=== PATIENT | male | born 1940 | race Caucasian/White ===

== ENCOUNTER 2020-05-01 08:18 | Day surgery (SDC) | payer OTHER ==
[2020-04-29 11:01] LABS: Absolute Lymphocytes (CBC) 1.1 K/uL (0.7-4.9); Basophils % 0.7 % (0-1.3); Hematocrit 43.1 % (39.6-49.0); Lymphocytes % 14.1 % (15.3-44.8); MPV 8.1 fL (7.6-11.3); RBC Red Blood Cell Count 4.84 M/uL (4.33-5.43)
[2020-04-29 11:04] LABS: Protime INR 1.12
--- NOTE | 2020-04-29 11:07 | RAD REPORT ---
EXAM DESCRIPTION: RAD - Chest Pa And Lat (2 Views) - 04/29/2020 10:56 am CLINICAL HISTORY: pre op Chest pain. COMPARISON: Chest Pa And Lat (2 Views) dated 02/28/2020; Chest Single View dated 11/26/2019; Chest Pa An d Lat (2 Views) dated 11/19/2019; Chest Pa And Lat (2 Views) dated 05/01/2019 FINDINGS: Emphysematous changes are present throughout the lungs. Chronic left pleural and parenchym al opacification appears unchanged since prior study. The heart is moderately enlarged in size with c hanges of a prior CABG noted.
[2020-04-29 11:22] LABS: Potassium 4.9 mmol/L (3.5-5.1)
--- NOTE | 2020-04-30 07:17 | EKG ---
Test Date: 2020-04-29 Test Time: 10:27:52 Software Project Engineer: ANNELISE MEASUREMENT RESULTS: Intervals: Rate: 82 LA: QRSD: 90 QT: 392 QTc: 457 [place]: P: LA: QRS: 61 T: 74 INTERPRETIVE STATEMENTS: Atrial fibrillation with premature ventricular or aberrantly conducted complexes Septal infarct, age undetermined Abnormal ECG Compared to ECG 06/26/2016 17:48:54 Ventricular premature complex(es) now present Myocardial infarct finding now present ST (T wave) deviation no longer present Possible ischemia no longer present Prolonged QT interval no longer present Electronically Signed On 04-30-20 07:15:55 CDT by Gerardo Ramirez
[2020-05-01] MEDS ORDERED: NA CHLORIDE 0.9% 500 ML ONE (08:35)
--- OUTSIDE RECORDS SUMMARY | 2020-05-01 08:43 | XMS REPORT | Clinical Summary ---
:1940 Author Organization [facility] [employer] Address [address] [place] [address] Care Team Providers Name Role Phone MD Macy Primary Care Provider Allergies No Known Allergies Medications No known medications Active Problems Not on file Encounters Date Type Specialty Care Team Description 2020 Travel 04/11/2020 Travel 04/11/2020 Transcribe Orders Access Jean Delacruz Jr., MD CA D (coronary artery disease) (Primary Dx); Other persisten t atrial fibrillation after 05/01/2019 Social History Tobacco Use Types Packs/Day Years Used Date Former Smoker 1 10 Smokeless Tobacco: Never Used Comments: Qick about 45yrs ago Alcohol Use Drinks/Week oz/Week Comments Yes 2 Cans of beer 2.0 a week Sex Assigned at Date Recorded Not on file Job Start Date Occupation Industry Not on file Not on file Not on file Travel History Travel Start Travel End No recent travel history available. COVID-19 Exposure Response Date Recorded In the last month, have you been in contact with No / Unsure 2020 9:27 AM CDT someone who was confirmed or suspected to have Coronavirus / COVID-19? Last Filed Vital Signs Vital Sign Reading Time Taken Comments Blood Pressure 138/88 2020 10:47 AM CDT Pulse 74 2020 10:47 AM CDT Temperature - - Respiratory Rate 15 2020 10:47 AM CDT Oxygen Saturation - - Inhaled Oxygen Concentration - - Weight 84.8 kg (187 lb) 2020 10:16 AM CDT Height 185.4 cm (6' 1") 2020 10:16 AM CDT Body Mass Index 24.67 2020 10:16 AM CDT Plan of Treatment Health Maintenance Due Date Last Done Comments SHINGLES VACCINES (#1) 1991 65+ PNEUMOCOCCAL VACCINE (1 of 2 - PCV13) 2006 INFLUENZA VACCINE 04/26/2020 Procedures Procedure Name Priority Date/Time Associated Diagnosis Comme nts CV CTA CORONARY PRE Routine 2020 10:53 CAD (coronary art rajesh Results for this AFIB PULMONARY VEIN AM CDT disease) procedure are in MAPPING Other persistent the results atrial fibrillation section. ESTIMATED GFR Routine 2020 10:09 Results fo r this AM CDT procedure are i n the results section. POC CREATININE Routine 2020 10:09 Results f or this AM CDT procedure are i n the results section. after 05/01/2019 Results Cv cta pre afib pulmonary vein mapping (2020 10:53 AM CDT) Specimen Narrative Performed At This result has an attachment that is no t available. [facility] Nuclear Cardiology and Card iac CT [address] [place] [address] Department Number: CTA Chest Non-Coronary with Contr ast Report Pat.Name: DONELL PERSAUD Tapan Dobbs at.ID: [id number] St.Date: 2020 Refer.MD: JEAN DELACRUZ MD Exam Time: 10:30:00 AM Study Type:CTA Chest Non-Coronary W Contrast Height: 73in Weight: 191lb BSA: 2.11 m2 Age: 7 1940,80Y Sex: MALE BP: 154/90 HR: 59 bpm Nuclear Tech:Mariya Smyth, RT(R)(CT) Pat. Stat.:Outpatient Tape Vol: 25.29, CPT - 4: CTA Coronary Arteries - 30382 (Please ad d FFR Charges if Performed), CTA Chest non-coronary - 44793 Nuclear Event ID:[id number] Order ID: [id number] Reason for Study:Coronary Artery Disease, A-Fib History / Clinical:COPD, Hypertension, CABG 2016 Procedures: CT Prospective (Intervals), CT Flash Mode (Systolic Phase), CT Flash Mode with Planning Scan Race: C SUMMARY: Technique: IV contrast was administered and sequential 0.[address] cuts were obtained through the chest using the Siemens Kluster jean paul Force CT scanner. Image post-processing consisting of multiplan ar and 3D reconstructions were performed using the [id number] workstation. Interactive image viewing, volumetric dis play and analysis were also performed. 3D coronary artery calci um scoring was done in accordance with a standardized protocol. CTA RESULTS Left Main: A normal sized 7.0 mm artery which arises normally fro m the left sinus of Valsalva and divides into the left anterior descend ing and circumflex coronary arteries. No significant calcified and non-calcified atherosclerotic plaque is present. Left anterior descending (LAD): A normal sized 6.0 mm artery which wraps around the ap ex and gives off three diagonal branches. Severe calcified atherosclero tic plaque is present in the mid segment with probable severe (>70%) stenosis in the proximal and mid segments. The first diagonal is a 2.2 mm artery which has no sig nificant calcified atherosclerotic plaque present with no signi ficant stenosis. The second diagonal is a 2.2 mm bifurcating artery whi ch has moderate calcified atherosclerotic plaque present with mild (25 -49%) stenosis. The third diagonal is a 3.0 mm bifurcating artery whic h has mild calcified atherosclerotic plaque present with mild (25 -49%) stenosis. Left circumflex: A normal sized 4.8 mm non-dominant artery which arises normally from the left main and gives off at least one major obtuse marginal artery before terminating in the AV groove. Severe calcified atherosclerotic plaque is present in the proximal segment with with mi ld (25-49%) stenosis. The first obtuse marginal is a 3.8 mm bifurcating almas ry which has moderate calcified atherosclerotic plaque present with mild (25-49%) stenosis, the distal vessel is not well visualized. Right coronary artery: A normal sized 4.5 mm dominant artery which arises nor estefani from the right sinus of Valsalva and gives off several right ve ntricular branches, the posterior descending artery and the post erolateral artery. Severe calcified atherosclerotic plaque is pre sent in the proximal and mid segments with total occlusion. The posterior descending is a 3.5 mm artery which has mild calcified and non-calcified atherosclerotic plaque present but n o significant stenosis. The posterolateral is a 3.0 mm artery which has modera te calcified and non-calcified atherosclerotic plaque present but no si gnificant stenosis. Stents: None. Bypass Grafts: None. Patent left internal mammary graft to the distal left anterior descending coronary artery which has a widely patent a nastomosis and no significant stenosis beyond the graft insertion. Pulmonary Arteries: The main pulmonary artery is moderately dilated at _4. 4_cm but with no proximal thrombus identified. Left Atrial and Pulmonary Vein Dimensions: Left atrial size (A-P diameter) 6.6 cm. Left atrial volume 250 ml. Normal PV anatomy Left superior PV20.5 mm. Left inferior PV20 mm. Right superior PV22 mm. Right inferior PV21 mm. There is a left atrial appendage clip. Well positione d . No evidence of contrast in the AURELIANO during contrast and delay imagi ng . No clot over the atrial surface of the clip . Left Ventricular Valve Morphology/Function: LV septal wall thickness 15 mm. Aortic valve is tri-leaflet with mild calcification. Mitral valve is normal Thoracic Aortic Dimensions: No aortic aneurysm or dissection is seen. On distal aorta there are post surgical changes which may indicate cannulation from prior cardiac surgery however prior o ccluded saphenous vein graft cannot be excluded. Aortic root 4.3 cm. Left sinus: 4.3 cm. Right sinus: 4.0 cm. Non-coronary sinus: 4.1 cm. Sinotubular junction 3.8 cm. Mid ascending aorta 4.8 cm. Aortic arch 4.0 cm. There is normal takeoff of the g reat vessels and no significant stenosis in the proximal visualized seg ments. Aortic Isthmus 3.3 cm. Descending thoracic aorta 3.2 cm. Pericardium: No pericardial effusion or pericardial thickening. Non-Cardiac Findings: Moderate left sided pleural effusion with partially co llapsed left lung. Enlarged mediastinal lymph nodes. CONCLUSION The coronary artery calcium score indicates a severe e xtent of coronary atherosclerosis. Coronary CTA shows severe coronary atherosclerosis wit h occlusion of the RCA and additionally a severe stenosis of the dionne ve LAD. The BUSCH to LAD is patent. On distal ascending aorta there are post surgical changes which may indicate cannulation from prior card iac surgery however prior occluded saphenous vein graft cannot be excluded. Enlarged aortic root Moderate left sided pleural effusion Normal PV anatomy. There is a left atrial appendage clip. Well positioned . No evidence of contrast in the AURELIANO during contrast and delay imagi ng . No clot over the atrial surface of the clip . Please refer to the separate radiology report in Epic of non-cardiovascular findings. STUDY QUALITY The study quality is excellent. COMMENTS None. FINDINGS: Signed 04/22/2020 5:15:33 PM Dia Fuentes MD Revised Procedure Note Interface, Radiology Results In - 2019 9:08 AM CDT Nuclear Cardiology and Cardiac CT [address] [place] [address] Department Number: CTA Chest Non-Coronary wit h Contrast Report Pat.Name: DONELL PERSAUD Pat.I D: [id number] .Date: 2020 Refer .MD: JEAN DELACRUZ MD Exam Time: 10:30:00 AM Study Type:CTA Chest Non-Coronary W Cont rast Height: 73in Weigh t: 191lb BSA: 2.11 m2 Age: 7 1940,80Y Sex: MALE BP: 154/90 HR: 59 bpm Nuclear Tech:Mariya Smyth, RT(R)(CT) Pat. Stat.:Outpatient Tape Vol: 25.29, CPT - 4: CTA Coronary Arteries - 7557 4 (Please add FFR Charges if Performed), CTA Chest non-coronary - 712 75 Nuclear Event ID:[id number] Order ID: [id number] Reason for Study:Coronary Artery Disease , A-Fib History / Clinical:COPD, Hypertension, C ABG 2016 Procedures: CT Prospective (Intervals), CT Flash Mode (Systolic Phase), CT Flash Mode with Planning Scan Race: C SUMMARY: Technique: IV contrast was administered and sequential 0.[address] cuts were obtained through the chest using th e Siemens Somatom Force CT scanner. Image post-processing consistin g of multiplanar and 3D reconstructions were performed using the [employer] workstation. Interactive image viewing, volumetric display and analysis were also performed. 3D coronar y artery calcium scoring was done in accordance with a standardized p rotocol. CTA RESULTS Left Main: A normal sized 7.0 mm artery which arise s normally from the left sinus of Valsalva and divides into the left an terior descending and circumflex coronary arteries. No signifi cant calcified and non-calcified atherosclerotic plaque is present. Left anterior descending (LAD): A normal sized 6.0 mm artery which wraps around the apex and gives off three diagonal branches. Severe calcifie d atherosclerotic plaque is present in the mid segment with probable severe (>70%) stenosis in the proximal and mid segments. The first diagonal is a 2.2 mm artery wh ich has no significant calcified atherosclerotic plaque present with no significant stenosis. The second diagonal is a 2.2 mm bifurcat ing artery which has moderate calcified atherosclerotic plaque present with mild (25-49%) stenosis. The third diagonal is a 3.0 mm bifurcati ng artery which has mild calcified atherosclerotic plaque present with mild (25-49%) stenosis. Left circumflex: A normal sized 4.8 mm non-dominant arter y which arises normally from the left main and gives off at least one major obtuse marginal artery before terminating in the AV groove. Sev ere calcified atherosclerotic plaque is present in the proximal segmen t with with mild (25-49%) stenosis. The first obtuse marginal is a 3.8 mm bi furcating artery which has moderate calcified atherosclerotic plaqu e present with mild (25-49%) stenosis, the distal vessel is not well visualized. Right coronary artery: A normal sized 4.5 mm dominant artery wh ich arises normally from the right sinus of Valsalva and gives off se veral right ventricular branches, the posterior descending arter y and the posterolateral artery. Severe calcified atherosclerotic plaque is present in the proximal and mid segments with total occ lusion. The posterior descending is a 3.5 mm art rajesh which has mild calcified and non-calcified atherosclerotic plaque present but no significant stenosis. The posterolateral is a 3.0 mm artery wh ich has moderate calcified and non-calcified atherosclerotic plaque pre sent but no significant stenosis. Stents: None. Bypass Grafts: None. Patent left internal mammary graft to th e distal left anterior descending coronary artery which has a w idely patent anastomosis and no significant stenosis beyond the graft insertion. Pulmonary Arteries: The main pulmonary artery is moderately dilated at _4.4_cm but with no proximal thrombus identified. Left Atrial and Pulmonary Vein Dimension s: Left atrial size (A-P diameter) 6.6 cm. Left atrial volume 250 ml. Normal PV anatomy Left superior PV20.5 mm. Left inferior PV20 mm. Right superior PV22 mm. Right inferior PV21 mm. There is a left atrial appendage clip. Well positioned . No evidence of contrast in the AURELIANO during contrast a nd delay imaging . No clot over the atrial surface of the clip . Left Ventricular Valve Morphology/Functi on: LV septal wall thickness 15 mm. Aortic valve is tri-leaflet with mild ca lcification. Mitral valve is normal Thoracic Aortic Dimensions: No aortic aneurysm or dissection is seen . On distal aorta there are post surgical changes which may indicate cannulation from prior cardiac surgery h owever prior occluded saphenous vein graft cannot be excluded. Aortic root 4.3 cm. Left sinus: 4.3 cm. Right sinus: 4.0 cm. Non-coronary sinus: 4.1 cm. Sinotubular junction 3.8 cm. Mid ascending aorta 4.8 cm. Aortic arch 4.0 cm. There is normal tha eoff of the great vessels and no significant stenosis in the proximal visualized segments. Aortic Isthmus 3.3 cm. Descending thoracic aorta 3.2 cm. Pericardium: No pericardial effusion or pericardial t hickening. Non-Cardiac Findings: Moderate left sided pleural effusion wit h partially collapsed left lung. Enlarged mediastinal lymph nodes. CONCLUSION The coronary artery calcium score indica starr a severe extent of coronary atherosclerosis. Coronary CTA shows severe coronary ather osclerosis with occlusion of the RCA and additionally a severe stenos is of the [place] LAD. The BUSCH to LAD is patent. On distal ascending aorta there are post surgical changes which may indicate cannulation f rom prior cardiac surgery however prior occluded saphenous vein gr aft cannot be excluded. Enlarged aortic root Moderate left sided pleural effusion Normal PV anatomy. There is a left atrial appendage clip. W ell positioned . No evidence of contrast in the AURELIANO during contrast a nd delay imaging . No clot over the atrial surface of the clip . Please refer to the separate radiology r eport in Epic of non-cardiovascular findings. STUDY QUALITY The study quality is excellent. COMMENTS None. FINDINGS: Signed 04/22/2020 5:15:33 PM Dia Fuentes MD Revised Performing Organization Address City/[facility]/Zipcode Phone Number [facility] [address] [place] [address] Estimated GFR (2020 10:09 AM CDT) Pathologist [facility] Estimated GFR 71 mL/min/1.73 [facility] Comment: m2 HOSPITAL Catergory Units Interpretation G1 >=90 Normal or high G2 60-89 Mildly decreased G3a 45-59 Mildly to moderately decreas ed G3b 30-44 Moderately to severely decre ased G4 15-29 Severely decreased G5 <15 Kidney failure The eGFR was calculated using the Chronic Kidney Disea se Epidemiology Collaboration (CKD-EPI) equation. Interpretation is based on recommendations of the National Kidney Foundation-Kidney Disease Outcomes Emre lity Initiative (NKF-KDOQI) published in 2014. Specimen Blood Performing Organization Address [facility] Phone Number [facility] DEPARTMENT OF PATHOLOGY AND [address] [place] [phone] [address] POC creatinine (2020 10:09 AM CDT) [facility] POC creatinine 1.0 0.7 - 1.2 YOANA SANCHEZ Comment: mg/dl HOSPITAL Sweep Press Operator Name: Shazia Haley Device ID: [id number] Specimen Blood Performing Organization Address [facility]/Zipcode Phone Number [facility] DEPARTMENT OF PATHOLOGY AND [address] [place] [address] [phone] [address] after 05/01/2019 Insurance Payer Benefit Plan / Subscriber ID Effective Dates Phone Addre ss Type Group HUMANA MEDICARE HUMANA MEDICARE xxxxxxxxx 2018-Present PPO PPO/PFFS/[facility] Advance Directives For more information, please contact: [phone] Type Date Recorded Patient Insulator Tester Explanati on Advance Directives, Living Will and Medical Power of Clinical Application Manager
--- OUTSIDE RECORDS SUMMARY | 2020-05-01 08:49 | XMS REPORT | Continuity of Care Document ---
:1940 Author Organization [facility] [employer] Care Team Providers Name Role Phone [facility] [place] Information [employer] Unavailable Un available Problems Problem Status Onset Classification Date Comments Sourc e Date Reported FOLLOW UP Active 11/26/[address] AFIB Active 12/29/[address] CCL/*MAC Active 12/29/19 [facility] ANESTHESIA*/CARDIO 16 [facility] VERSION/DX: A Center LSA Active 10/23/[address] HOSPITAL FOLLOW UP Active 10/22/[address] A FIB Active 09/29/[address] INTITAL CONSULT Active 09/22/[address] POST TPA Active 09/19/[address] CVA Active 09/19/[address] ELLE BILLING Active 09/19/20 [facility] LFLT #[id number] [place] [address] Atrial Resolved Problem 02/21/2017 [facility] fibrillation Medical (disorder) [place] 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[facility] failure (disorder) [facility], [facility] 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[facility] obstructive lung Med ical disease (disorder) C enter, [facility] Diabetes mellitus Resolved Problem 02/21/2017 [facility] (disorder) [facility], [facility] Hypertensive Resolved Problem 02/21/2017 [place] [facility] disorder, systemic [facility] arterial [place], (disorder) [facility] Cerebrovascular Resolved Problem 02/21/2017 [facility] accident Medical (disorder) [place], [facility] S/P ADMN TPA IN Active [facility] ex DIFF FAC W/N LAST Me dical 24 HR Center MEDICAL SERVICES Active [facility] NOT AVAILABLE IN Med ical HOME Center UNSPECIFIED ATRIAL Active [facility] ENCNTR FOR GENERAL Active [facility] [place] ADULT MEDICAL EXAM M edical W/ Center Medications Medication Details Route Status Patient Ordering Order Source Instructions Provider Date bumetanide 1 mg 1 mg = 1 tab, Active [place] oral tablet PO, BID, # 180 2017 Medic al tab, 3 Center Refill(s), Pharmacy: [facility]/pharmacy #[id number] nebivolol 10 MG 10 mg = 1 tab, Active 02/18/ M [facility] [place] Oral Tablet PO, Daily 2016 Medical [Bystolic] Center Microencapsulated 20 mEq = 1 tab, Active Potassium Chloride PO, BID, # 180 2017 Center 20 MEQ Extended tab, 3 for Adv Release Oral Tablet Refill(s), [facility] [[facility] Pharmacy: Failure [facility]/pharmacy #[id number] nebivolol 5 MG Oral 5 mg = 1 tab, Active Tablet [Bystolic] PO, Daily, # 90 2017 Center tab, 3 for Adv Refill(s), Heart Pharmacy: Failure [facility][id number] atorvastatin 40 mg 40 mg = 1 tab, Active oral tablet PO, Bedtime, # 2017 Cente r 90 tab, 3 for Adv Refill(s), Heart Pharmacy: Failure [facility]acy [facility][id number] 24 HR Nifedipine 60 60 mg = 1 tab, Active 10/22 MG Extended Release PO, Daily, # 90 2017 Center Tablet tab, 3 for Adv Refill(s), Heart Pharmacy: Failure [id number] bumetanide 0.5 mg 2 mg = 4 tab, Active oral tablet PO, BID, # 240 2016 Cente r tab, 6 for Adv Refill(s), Heart Pharmacy: Failure [facility]acy [id number], Patient is due for follow up appointment Potassium Chloride 20 mEq = 1 tab, Active 04/14 MH 20 MEQ Extended PO, BID, # 180 2016 C enter Release Tablet tab, 3 for Adv [Klor-Con] Refill(s), Heart Pharmacy: Failure [id number] bumetanide 0.5 mg 2 mg = 4 tab, Active oral tablet PO, BID, 2016 Center patient is due for Adv for follow up Heart appointment, # Failure 240 tab, 6 Refill(s), Pharmacy: [id number], Patient is due for follow up appointment bumetanide 0.5 mg 2 mg = 4 tab, Active oral tablet PO, BID, 2016 Center patient is due for Adv for follow up Heart appointment, # Failure 240 tab, 0 Refill(s), Pharmacy: [facility]/pharmacy #[id number], Patient is due for follow up appointment sucralfate 1 g oral 1 gm = 1 tab, Active [facility] tablet PO, QID-Before 2016 Medical Meals, 0 Center Refill(s) AMIODarone 200 mg 200 mg = 1 tab, Active [place] oral tablet PO, Daily, 0 2015 Medical Refill(s) Center nebivolol 5 MG Oral 5 mg = 1 tab, Active [facility] Tablet [Bystolic] PO, Daily, 0 2015 edical Refill(s) [place] Sucralfate 100 1 gm = 10 mL, Active [place] MG/ML Oral PO, QID-Before 2015 Medica l Suspension Meals, 0 [place] [Carafate] Refill(s) bumetanide 0.5 mg 1 mg = 2 tab, Active [facility] oral tablet PO, BID, 0 2015 Medical Refill(s) [place] bumetanide 0.5 mg 1 mg = 2 tab, Active [place] oral tablet PO, BID [facility] Potassium Chloride 20 mEq = 1 tab, Active 10/29 [place] 20 MEQ Extended PO, BID 2016 Medical Release Tablet [place] [Klor-Con] Metolazone 2.5 MG 2.5 mg = 1 tab, Active [facility] Oral Tablet PO, Q-Tu and 2016 Medical Th, # 30 tab, 1 Center Refill(s) polyethylene glycol 17 gm, PO, Active 10/20/ M [facility] [place] 3350 oral powder Daily, # 527 2016 Me dical for reconstitution gm, 3 Refill(s) [place] senna 8.6 mg oral 8.6 mg = 1 tab, Active [place] tablet PO, Q12H, PRN 2016 Medical Constipation, # Center 30 tab, 3 Refill(s) 24 HR Nifedipine 60 60 mg = 1 tab, Active 10/20 [place] MG Extended Release PO, Daily, # 90 2016 Medical Tablet tab, 3 Center Refill(s) nebivolol 5 mg oral 5 mg = 1 tab, Active [place] tablet PO, Daily, # 90 2016 Medical tab, 3 Center Refill(s) Metolazone 2.5 MG 2.5 mg = 1 tab, Inactive 10/20 [place] Oral Tablet PO, Q--F, # 2016 Medic al 90 tab, 3 Center Refill(s) bumetanide 0.5 mg 2 mg = 4 tab, Active [place] oral tablet PO, BID, # 180 2016 Medic al tab, 1 Center Refill(s) atorvastatin 40 mg 40 mg = 1 tab, Active [place] oral tablet PO, Bedtime, # 2016 Medic al 90 tab, 3 Center Refill(s) Aspirin Low Dose 81 = 1 tab, PO, Active [facility] mg oral tablet Daily, # 90 2016 Medic al tab, 3 Center Refill(s) AMIODarone 200 mg 200 mg = 1 tab, Active [facility] oral tablet PO, BID, # 90 2016 Medica l tab, 3 Center Refill(s) bumetanide 0.5 mg 2 mg = 4 tab, Inactive [place] oral tablet PO, BID, 0 2016 Medical Refill(s) Center AMIODarone 200 mg 200 mg = 1 tab, Inactive 10/20 [facility] oral tablet PO, BID, 0 2016 Medical Refill(s) Center potassium chloride 10 mEq = 50 mL, Inactive 09/27 [facility] IVPB, PRN, PRN 2016 Medical Abnormal Lab Center Result, 0 Refill(s) nebivolol 5 mg oral 5 mg = 1 tab, Inactive 10/20 [place] tablet PO, Daily, 0 2016 Medical Refill(s) Center 24 HR Nifedipine 60 60 mg = 1 tab, Inactive 09/27 [place] MG Extended Release PO, Daily, 0 2016 Medical Tablet Refill(s) Center Metolazone 2.5 MG 2.5 mg = 1 tab, Inactive 10/20 [place] Oral Tablet PO, Q---F, 0 2016 Medic al Refill(s) Center Metolazone 2.5 MG Notes: (Same Inactive [facility] Oral Tablet as: Zaroxolyn) 2016 Medic al Center Bumex Notes: (Same Inactive [facility] As: Bumex) 2016 Medical Center Diuril Notes: (Same Inactive [facility] As: Diuril 2016 Medical Sodium) Center Diuril 250 mg, Route: Inactive [facility] PO, ONCE, 2016 Medical Dosing Weight Center 101.007, kg, Start date: 10/18/15 18:30:00, Stop date: 10/18/15 18:30:00 Diuril Sodium + Notes: (Same Inactive [facility] Sodium Chloride As: Diuril 2016 Medic al 0.9% IV 50 mL Sodium) [place] Potassium Chloride Notes: (Same No Longer [facility] 20 MEQ Extended as: K-Dur 20) Active 2015 Me dical Release Tablet "Do Not Crush" Ce nter With food and full glass of water Diuril Notes: (Same Inactive [facility] As: Diuril 2016 Medical Sodium) [place] bumetanide 10 mg Notes: (Same No Longer [facility] as: Bumex) Active [facility] Venofer Notes: Each 5ml No Longer [place] as contains 100mg Active 2015 Medical elemental iron. Center Mix with NS (Same as:Venofer) Administer IV only. MEDICATION WASTE Product Size: 100 mg Product Wasted: ___ mg Aspirin Notes: Do not No Longer [facility] crush or chew. Active 2015 Medical (Same As: [place] Ecotrin) heparin Notes: [facility] potassium phosphate Notes: (Same No Longer 10/13 [facility] + Sodium Chloride as: K Active 2016 Medica l 0.9% IV 250 mL Phosphate.) 1 Ce nter mMol phoshate has 1.47 mEq potassium Infuse over 4 hours potassium Notes: (Same [place] Long[place] phosphate-sodium as: Active 2016 Medical phosphate 250 Neutra-Phos) Cente r mg-278 mg-164 mg Each 1.25 gm oral powder pkt has 250mg phosphorous. Mix w/2.5oz water and stir. potassium chloride Notes: (Same No Longer [facility] as: KCL) Active 2015 Medical Infuse over 2 Center hours. Magnesium Sulfate 2 gm, 50 mL, No Longer [place] Route: IVPB, Active 2015 Medical Drug form: INJ, Center PRN, Dosing Weight 101.007, kg, PRN Abnormal Lab Result, For NON-ICU Patients Only., Start date: 10/13/15 11:41:00, Duration: 30 day, Stop date: 11/12/15 11:40:00 sodium phosphate + 30 mmol, 10 mL, No Longer [place] Sodium Chloride Route: IVPB, Active 2015 Med ical 0.9% IV 250 mL PRN, Dosing Cente r Weight 101.007, kg, PRN Abnormal Lab Result, For NON-ICU Patients Only., Start date: 10/13/15 11:41:00, Duration: 30 day, Stop date: 11/12/15 11:40:00 Calcium Gluconate 2 gm, 20 mL, No Longer [place] Route: IVPB, Active 2015 Medical PRN, Dosing Center Weight 101.007, kg, PRN Abnormal Lab Result, For NON-ICU Patients Only., Start date: 10/13/15 11:41:00, Duration: 30 day, Stop date: 11/12/15 11:40:00 Magnesium Oxide Notes: (Same No Longer H [place] as: Mag-Ox 400) Active 2015 [facility] Magnesium oxide [place] [id number] elemental magnesium Dose=____mg magnesium oxide (___mg elemental magnesium) bumetanide 10 mg Notes: (Same No Longer [place] as: Bumex) Active 2015 Medical [place] Trazodone Notes: (Same [place] Longer [place] As: Desyrel) Active 2016 Medical [place] Melatonin 3 MG Notes: (Same No Longer [place] Extended Release as: Melatonin) Active [facility] Tablet Center Lasix Notes: (Same No Longer [place] as: Lasix) Active 2015 Medical MEDICATION Center WASTE Product Size: 40 mg Product Wasted: ___ mg Maalox Advanced Notes: No Longer [place] as Regular Strength (aluminum Active 2015 Medic al SUSP hydroxide-magne Center sium hyd-simethicone [id number]/5m l 30 ml ud ALEISHA) Fentanyl Notes: (Same No Longer [place] as: Sublimaze) Active 2016 Medical Preservative Center free. Lasix Notes: (Same No Longer [facility] as: Lasix) Active 2016 Medical MEDICATION Center WASTE Product Size: 40 mg Product Wasted: ___ mg Lasix Notes: (Same No Longer [facility] as: Lasix) Active 2016 Medical MEDICATION Center WASTE Product Size: 40 mg Product Wasted: _0__ mg Miralax Notes: Dissolve No Longer [place] as in 8 oz of Active 2016 Medical water or juice. Center (Same as: Miralax) Bystolic Notes: (same No Longer [facility] as: Bystolic) Active 2016 Medical Center Potassium Chloride Notes: (Same No Longer [facility] 20 MEQ Extended as: K-Dur 20) Active 2015 Me dical Release Tablet "Do Not Crush" Ce nter With food and full glass of water 24 HR Nifedipine 60 Notes: (Same No Longer 10/08 [facility] MG Extended Release as: Adalat CC, Active 2015 Medical Tablet Procardia XL) Center Give on empty stomach. Take 1 hour before or 2 hours after meal; "Avoid grapefruit and grapefruit juice". Do not crush molasses Notes: (Same Inactive [facility] as:Molasses) 2016 Medical Center Simethicone Notes: (Same No Longer [place] as: Mylicon) Active 2016 Medical Center Dulcolax Laxative Notes: (Same No Longer [facility] As: Dulcolax, Active 2016 [facility] Bisco-Lax) Center Bystolic Notes: (same Inactive [facility] as: Bystolic) 2016 Medical Center Magnesium Oxide Notes: (Same Inactive [facility] as: Mag-Ox 400) 2016 Medical Magnesium oxide Center [id number] elemental magnesium Dose=____mg magnesium oxide (___mg elemental magnesium) potassium chloride Notes: (Same Inactive [facility] as: K-Dur 20) 2016 Medical "Do Not Crush" Center With food and full glass of water Calcium Carbonate Notes: (Same Inactive [facility] As: Tums) 2016 Medical Calcium Center Carbonate 500 mg = 200 mg elemental calcium Dose = mg calcium carbonate ( mg elemental calcium) Lasix Notes: (Same No Longer [place] as: Lasix) January Active 2016 Medical cause GI upset. Center Give with food or milk. Hydralazine Notes: (Same [place] Longer [place] as: Apresoline) Active 2016 Medical Push over 5 Center minutes Dulcolax Laxative Notes: (Same Inactive [place] As: Dulcolax, 2016 Medical Bisco-Lax) Center potassium chloride Notes: (Same Inactive [place] as: K-Dur 20) 2016 Medical "Do Not Crush" Center With food and full glass of water Simethicone Notes: (Same No Longer [place] as: Mylicon) Active 2016 Medical Center Amiodarone Notes: (Same No Longer [place] as as: Cordarone) Active 2016 Medical Center carvedilol Notes: Give Inactive [facility] with food. 2016 Medical (Same As: Center Coreg) Acetaminophen 325 Notes: Do not No Longer [facility] MG / Hydrocodone exceed 4gm/day Active 2016 Medical Bitartrate 10 MG of Center Oral Tablet [[place] acetaminophen. 10/325] (Same as: [place] 325/10) senna 8.6 mg oral Notes: (Same No Longer [facility] tablet as: Senokot) Active 2016 Medical Center sodium bicarbonate 50 ml, Route: Inactive [place] 8.4% IVP, Dosing 2016 Medical Weight 97.273, Center kg, ONCE, Start date: 10/01/15 18:27:00, Stop date: 10/01/15 18:27:00 Dopamine Notes: (Same No Longer [place] as: Intropin) Active 2016 Medical Administer by Center either central venous catheter or peripherally-in serted central catheter (PICC) line. Final conc = 3.2 mg/ml. Premix solution. Sodium Chloride 500 mL, 1000 Inactive [place] 0.154 MEQ/ML ml/hr, Infuse 2016 Medic al Injectable Solution Over: 0.5 hr, Center Route: IV, 500, Drug form: INJ, ONCE, Priority: STAT, Dosing Weight 97.273 kg, Start date: 10/01/15 13:41:00, Duration: 1 doses or times, Stop date: 10/01/15 13:41:00 Dobutamine Notes: (Same No Longer [place] as as: Dobutrex) Active [facility] Final conc = 4 Center mg/ml. Premix solution. Protect from light. pantoprazole Notes: For IV No Longer [facility] push Active 2015 [facility] reconstitute [place] with 10 ml 0.9% sodium chloride and push over 2 minutes. (Same as: Protonix) Docusate Sodium 100 Notes: (Same No Longer 10/01 [facility] MG Oral Capsule as: Colace) (Do Active [facility] [Colace] Not Crush) [place] Aspirin 325 MG Notes: Take No Longer [place] Enteric Coated with food. Active 2015 Medica l Tablet [place] Aspirin 300 MG Notes: Inactive [facility] Rectal Suppository Refrigerate. 2016 [facility] Dopamine Notes: (Same Inactive [facility] as: Intropin) 2016 Medical Administer by Center either central venous catheter or peripherally-in serted central catheter (PICC) line. Final conc = 3.2 mg/ml. Premix solution. sodium bicarbonate Notes: (sodium Inactive 10/01 [place] 8.4% bicarb 8.4% (1 2015 Medical mEq/ml) 50 ml [facility]) Sodium Chloride 1,000 mL, 1,000 Inactive [facility] 0.154 MEQ/ML ml/hr, Infuse 2016 Medic al Injectable Solution Over: 1 hr, [place] Route: IV, 1,000, Drug form: INJ, ONCE, Priority: STAT, Dosing Weight 97.273 kg, Start date: 10/01/15 1:52:00, Duration: 1 doses or times, Stop date: 10/01/15 1:52:00 sodium bicarbonate Notes: (sodium Inactive 10/01 [facility] 8.4% bicarb 8.4% (1 2015 Medical mEq/ml) 50 ml [facility]) Dexmedetomidine Notes: (Same No Longer [facility] as: Precedex) Active 2015 [facility] calcium gluconate + 3,000 mg, 30 Inactive [facility] Sodium Chloride mL, Route: 2015 Medic al 0.9% IV 100 mL IVPB, ONCE, Cente r Start date: 09/30/15 22:41:00, Stop date: 09/30/15 22:41:00 ceFAZolin (SCIP) Notes: Same as: No Longer 10/01 [place] Ancef Active 2015 [facility] sodium bicarbonate Notes: (sodium Inactive 10/01 [place] 8.4% bicarb 8.4% (1 2015 Medical mEq/ml) 50 ml Center VL) atorvastatin Notes: (Same No Longer [place] as: Lipitor) Active [facility] Vancomycin 6.67 2001 mg: No Longer [place] MG/ML Injectable infuse over 2.5 Active 2015 Medical Solution hours Center MEDICATION WASTE Product Size: 1000 mg Product Wasted: ___ mg Sodium Chloride 1,000 mL, 1,000 Inactive [place] 0.154 MEQ/ML ml/hr, Infuse 2015 Medic al Injectable Solution Over: 1 hr, Center Route: IV, 1,000, Drug form: INJ, ONCE, Priority: STAT, Dosing Weight 97.273 kg, Start date: 09/30/15 19:47:00, Duration: 1 doses or times, Stop date: 09/30/15 19:47:00 Neutra-Phos Notes: (Same [place] Longer [place] as: Active 2015 Medical Neutra-Phos) Center Each 1.25 gm pkt has 250mg phosphorous. Mix w/2.5oz water and stir. Magnesium Sulfate 2 gm, 50 mL, No Longer [place] Route: IVPB, 2015 Medical Drug form: INJ, Center PRN, Dosing Weight 97.273, kg, PRN Abnormal Lab Result, Start date: 09/30/15 19:44:00, Duration: 30 day, Stop date: 10/30/15 19:43:00, FOR ICU USE ONLY sodium phosphate + 15 mmol, 5 mL, No Longer [place] Sodium Chloride Route: IVPB, Active 2015 Med ical 0.9% IV 250 mL PRN, Dosing Cente r Weight 97.273, kg, PRN Abnormal Lab Result, Start date: 09/30/15 19:44:00, Duration: 30 day, Stop date: 10/30/15 19:43:00, FOR ICU USE ONLY potassium chloride Notes: (Same No Longer [place] as: Potassium Active 2015 Medical Chloride) Center Calcium Gluconate 1 gm, 10 mL, No Longer [place] Route: IVPB, Active 2015 Medical PRN, Dosing Center Weight 97.273, kg, PRN Abnormal Lab Result, Start date: 09/30/15 19:44:00, Duration: 30 day, Stop date: 10/30/15 19:43:00, FOR ICU USE ONLY Magnesium Oxide Notes: (Same No Longer [place] as: Mag-Ox 400) Active 2015 Medical Magnesium oxide Center [id number] elemental magnesium Dose=____mg magnesium oxide (___mg elemental magnesium) Calcium Carbonate Notes: (Same No Longer [place] 500 MG Chewable As: Tums) Active 2015 Medica l Tablet Calcium Center Carbonate 500 mg = 200 mg elemental calcium Dose = mg calcium carbonate ( mg elemental calcium) potassium phosphate Notes: (Same No Longer 10/01 [place] + Sodium Chloride as: K Active 2015 Medica l 0.9% IV 250 mL Phosphate.) 1 Ce nter mMol phoshate has 1.47 mEq potassium Infuse over 4 hours Glucagon 1 mg, Route: No Longer [place] IM, Drug form: Active 2015 Medical PDR/INJ, PRN, Center Dosing Weight 97.273, kg, PRN Blood Glucose Results, Start date: 09/30/15 19:43:00, Duration: 30 day, Stop date: 10/30/15 19:42:00 Insulin regular 60 units) No Longer [place] Stable for 28 2015 Medical days at room Center temperature Expires in days from D ate Dextrose 50% 12.5 gm, 25 mL, No Longer [facility] Syringe Route: IVP, Active 2015 Medical Drug Form: INJ, Center Dosing Weight 97.273, kg, PRN, PRN Blood Glucose Results, Start date: 09/30/15 19:43:00, Duration: 30 day, Stop date: 10/30/15 19:42:00 Isolyte S PH 7.4 Notes: (Same No Longer [place] 1,000 mL as: Isolyte S Active 2015 Medical PH 7.4) Center Fentanyl 1,000 No Longer [place] microgram, 20 Active 2015 Medical mL, Rate: Center Titrate, Start Dose: 50 microgram/hr, Titration: 25 microgram/hour every 15 minutes, Goal(s): RASS (0) to (-2), Max Dose: 300 microgram/hr, Route: IV, Dosing Weight 97.273 kg, Total Volume: 20, Start date: 09/30/15 18:34:... Fentanyl Notes: No Longer [place] Concentration Active 2016 Medical is 20 Center micrograms/ml Naloxone Notes: Same as No Longer [place] as Narcan Active 2015 [facility] Ondansetron 0.8 Notes: (Same No Longer [facility] MG/ML Oral Solution as: Zofran) Active 2015 [facility] [Zofran] Center Acetaminophen 325 Notes: Do not No Longer [place] MG / Hydrocodone exceed 4gm/day Active 2015 [facility] Bitartrate 10 MG of Center Oral Tablet acetaminophen. (Same as: [place] 325/10) Fentanyl Notes: (Same No Longer [place] as: Sublimaze) Active 2015 [facility] Preservative Center free. Acetaminophen Notes: Do not No Longer [place] exceed 4 Active 2015 Medical gm/day. (Same Center as: Tylenol) protamine (ANES) Route: IV, Drug Inactive [place] form: INJ, 2015 Medical ONCE, Stop Center date: 09/30/15 16:31:00 DOPamine (ANES) Route: IV, Drug Inactive [place] (ANES) form: INJ, 2015 Medical Start date: [place] 09/30/15 16:10:00, Stop date: 09/30/15 17:10:00 acetaminophen Route: IV, Drug Inactive [place] (ANES) (ANES) form: INJ, 2015 Medical Start date: [place] 09/30/15 15:40:00, Stop date: 09/30/15 16:40:00 Ancef 1 gm, Route: Inactive [place] IVPB, ONCE, 2016 Medical Dosing Weight Center 97.273, kg, Start date: 09/30/15 13:24:00, Duration: 1 doses or times, Stop date: 09/30/15 13:24:00, Surgical Prophylaxis Only; For patients < 120 kg midazolam (ANES) Route: IV, Drug Inactive 09/30/ [place] form: SOLN, 2015 Medical ONCE, Stop Center date: 09/30/15 12:10:00 heparin (ANES) Route: IV, Drug Inactive [place] form: INJ, 2015 Medical ONCE, Stop Center date: 09/30/15 12:00:00 niCARdipine (ANES) Route: IV, Drug Inactive [place] + sodium chloride form: INJ, 2015 Med ical (ANES) (ANES) ONCE, Stop Center date: 09/30/15 12:00:00 tranexamic acid Route: IV, Drug Inactive [place] (ANES) form: INJ, 2015 Medical ONCE, Stop Center date: 09/30/15 11:25:00 ceFAZolin (ANES) Route: IV, Drug Inactive [place] form: INJ, 2015 Medical ONCE, Stop Center date: 09/30/15 11:25:00 lidocaine (ANES) Route: IV, Drug Inactive [place] form: INJ, 2015 Medical ONCE, Stop Center date: 09/30/15 11:05:00 propofol (ANES) Route: IV, Drug Inactive [place] form: INJ, 2015 Medical ONCE, Stop Center date: 09/30/15 10:55:00 rocuronium (ANES) Route: IV, Drug Inactive 09/30 [place] form: INJ, 2015 Medical ONCE, Stop Center date: 09/30/15 10:10:00 fentaNYL (ANES) Route: IV, Drug Inactive [place] form: INJ, 2015 Medical ONCE, Stop Center date: 09/30/15 10:05:00 cefepime (ANES) Route: IV, Drug Inactive [place] form: INJ, 2015 Medical ONCE, Stop Center date: 09/30/15 10:00:00 dexmedetomidine Route: IV, Drug Inactive [place] (ANES) (ANES) form: INJ, 2015 Medical Start date: Center 09/30/15 9:48:00, Stop date: 09/30/15 10:48:00 ropivacaine 400 mL Notes: Final No Longer [place] concentration: Active 2015 Medical Ropivacaine Center 0.2% 400 ml ropivacaine 400 mL Notes: Final No Longer [place] concentration: Active 2015 [facility] Ropivacaine Center 0.2% 400 ml Ancef 2 gm, Route: Inactive [place] IVPB, ONCE, 2016 Medical Dosing Weight Center 97.273, kg, Start date: 09/30/15 9:26:00, Duration: 1 doses or times, Stop date: 09/30/15 9:26:00, Surgical Prophylaxis Only; For patients < 120 kg pantoprazole Notes: Tablet Inactive [place] should not be 2016 Medical chewed or Center crushed. (Same as: Protonix) 24 HR Nifedipine 90 Notes: (Same No Longer 09/30 [place] MG Extended Release as:Adalat CC, Active 2015 Medical Tablet Procardia XL) Center Give on empty stomach. Take 1 hour before or 2 hours after meal; "Avoid grapefruit and grapefruit juice". Do not crush Losartan Notes: (Same No Longer [place] as: Cozaar) Active 2015 [facility] Aspirin Notes: Take Inactive Veronica with food. 2016 [facility] PlasmaLyte A PH-7.4 Route: IV, Inactive [place]onica (ANES) (ANES) Total Volume: 2016 Medi prabhjot 1,000, Start Center date: 09/30/15 8:20:00, Stop date: 09/30/15 9:20:00 Clonidine Notes: (Same No Longer [place] Hydrochloride 0.1 As: Catapres) Active 2015 Medical MG Oral Tablet Center atorvastatin Notes: (Same No Longer [place] As: Lipitor) Active 2015 [facility] Magnesium Sulfate 2 gm, 50 mL, No Longer [place] Route: IVPB, Active 2015 Medical Drug form: INJ, Center PRN, Dosing Weight 97.273, kg, PRN Abnormal Lab Result, For NON-ICU Patients Only., Start date: 09/29/15 19:19:00, Duration: 30 day, Stop date: 10/29/15 19:18:00 Calcium Gluconate 3 gm, 30 mL, No Longer [place] Route: IVPB, Active 2015 Medical Drug form: INJ, Center PRN, Dosing Weight 97.273, kg, PRN Abnormal Lab Result, For NON-ICU Patients Only., Start date: 09/29/15 19:19:00, Duration: 30 day, Stop date: 10/29/15 19:18:00 Magnesium Oxide Notes: (Same No Longer [facility] as: Mag-Ox 400) Active 2015 [facility] Magnesium oxide Center [id number] elemental magnesium Dose=____mg magnesium oxide (___mg elemental magnesium) potassium phosphate Notes: (Same No Longer 09/30 [facility] + Sodium Chloride as: K Active 2015 Medica l 0.9% IV 250 mL Phosphate.) 1 Ce nter mMol phoshate has 1.47 mEq potassium Infuse over 4 hours sodium phosphate + 15 mmol, 5 mL, No Longer [facility] Sodium Chloride Route: IVPB, Active 2015 Med ical 0.9% IV 250 mL PRN, Dosing Cente r Weight 97.273, kg, PRN Abnormal Lab Result, For NON-ICU Patients Only., Start date: 09/29/15 19:19:00, Duration: 30 day, Stop date: 10/29/15 19:18:00 potassium chloride Notes: (Same No Longer [facility] as: KCL) Active 2015 Medical Infuse over 2 Center hours. potassium Notes: (Same [place] phosphate-sodium as: Active 2015 Medical phosphate 250 Neutra-Phos) Cente r mg-278 mg-164 mg Each 1.25 gm oral powder pkt has 250mg phosphorous. Mix w/2.5oz water and stir. Insulin regular 60 units) No Longer [facility] Stable for 28 Active 2015 Medical days at room Center temperature Expires in days from D ate Acetaminophen 325 Notes: (Same No Longer [facility] MG / Hydrocodone as: [place] Active 2015 Medic al Bitartrate 5 MG 325/5) Do not C enter Oral Tablet exceed 4gm/day of acetaminophen. 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 Active 2015 [facility] mL with blood Center product administration, Dosing Weight 110.4, kg, Route: IV, Total Volume: 250, Start Date: 09/29/15 15:28:00, Duration: 30 day, Stop date: 10/29/15 15:27:00, Replace Every: 24 hr Lyrica Notes: (Same Inactive [facility] as: Lyrica) 2016 [facility] Lyrica Notes: (Same No Longer [facility] as: Lyrica) Active [address] [place] [address] Metformin 500 mg = 1 tab, Active 09/24[facility] [place] as hydrochloride 500 PO, Before 2014 Med ical MG Oral Tablet Dinner, # 30 Cent er tab, 0 Refill(s) Iohexol Notes: (same Inactive [facility] as:Omnipaque 2015 Medical 350). [place] atorvastatin 20 mg 20 mg = 1 tab, Active 09/22[facility] oral tablet PO, Bedtime, # 2015 Medic al 30 tab, 2 Center Refill(s) Physical Therapy See Active 09/22[facility] Juni s Instructions, 2015 Medical MISC, ONCALL, Center Evaluate and Treat _3__ times per week for __10__ weeks, # 30 unit, 0 Refill(s) Potassium Chloride 40 mEq, 2 tab, Inactive 09/22 [facility] Veronica 20 MEQ Extended Route: PO, Drug 2014 Medical Release Tablet form: ERTAB, Cent er ONCE, Dosing Weight 110.4, kg, Start date: 09/22/15 7:35:00, Stop date: 09/22/15 7:35:00 Potassium Chloride 40 mEq, 30 mL, Inactive 09/22 Veronica 1.33 MEQ/ML Oral Route: PO, Drug 2014 Medical Solution form: LIQ, Center ONCE, Dosing Weight 110.4, kg, Start date: 09/22/15 7:35:00, Stop date: 09/22/15 7:35:00 potassium chloride Notes: (Same No Longer [place] as: K-Dur 20) Active 2014 Medical "Do Not Crush" Center With food and full glass of water Clonidine Notes: (Same No Longer [facility] Hydrochloride 0.1 As: Catapres) Active 2014 Medical MG Oral Tablet Center torsemide Notes: (Same [place] Long[place] As: Demadex) Active 2014 [facility] 24 HR Nifedipine 90 Notes: (Same No Longer 09/21 [place] MG Extended Release as:Adalat CC, Active 2014 Medical Tablet Procardia XL) Center Give on empty stomach. Take 1 hour before or 2 hours after meal; "Avoid grapefruit and grapefruit juice". Do not crush Labetalol 10 mg, 2 mL, [place] Longer [place] Route: IVP, Active 2014 Medical Drug form: INJ, Center Q15Min, Dosing Weight 110.4, kg, PRN Hypertension, Start date: 09/21/15 8:55:00, Duration: 30 day, Stop date: 10/21/15 8:54:00 Hydralazine Notes: (Same [place] Long[place] as: Apresoline) Active 2014 Medical Push over 5 Center minutes Potassium Chloride Notes: (Same Inactive [place] 1.33 MEQ/ML Oral as: Potassium 2014 edical Solution Chloride) Center Losartan Notes: (Same No Longer [facility] as: Cozaar) Active 2014 Medical [place] Bystolic Notes: (same No Longer [facility] as: Bystolic) Active 2014 [facility] 24 HR Nifedipine 90 90 mg, 1 tab, Inactive 09/21 [place] MG Extended Release Route: PO, Drug 2014 Medical Tablet form: ERTAB, Center Daily, Dosing Weight 110.4, kg, Priority: NOW, Start date: 09/21/15 4:09:00, Duration: 30 day, Stop date: 10/20/15 9:00:00 heparin Notes: porcine [place] Longer [place] heparin Active 2014 [facility] Aspirin Notes: Take No Longer [place] with food. Active 2014 Medical Center torsemide 20 mg 20 mg = 1 tab, Active H [place] oral tablet PO, Daily, # 30 2014 [facility] prabhjot tab, 1 Center Refill(s) nebivolol 10 MG 20 mg = 2 tab, Active H [place] Oral Tablet PO, Daily, # 60 2014 [facility] prabhjot [Bystolic] tab, 0 Center Refill(s) 24 HR Nifedipine 90 90 mg = 1 tab, Active 09/21 [place] MG Extended Release PO, Daily, # 30 2014 Medical Tablet tab, 0 Center Refill(s) Potassium Chloride 20 mEq = 1 tab, Active 09/21 [place] 20 MEQ Extended PO, BID, # 60 2014 Me dical Release Tablet tab, 0 Center [Klor-Con] Refill(s) simvastatin 40 mg 40 mg = 1 tab, No Longer 09/21 [place] oral tablet PO, Bedtime, # Active 2014 Medic al 90 tab, 1 Center Refill(s) Aspirin Low Dose 81 = 1 tab, PO, Active [facility] mg oral tablet Daily, # 30 2014 Medic al tab, 1 Center Refill(s) atorvastatin Notes: (Same No Longer [place] As: Lipitor) Active 2014 [facility] Center Clonidine 0.1 mg = 1 tab, Active [place] Hydrochloride 0.1 PO, TID, 0 2014 Med ical MG Oral Tablet Refill(s) [place] losartan 100 mg 100 mg = 1 tab, Active [facility] oral tablet PO, Daily, # 30 2014 [facility] tab, 0 Center Refill(s) Metformin 500 mg = 1 tab, No Longer [place] hydrochloride 500 PO, Before Active 2014 Med ical MG Oral Tablet Dinner, # 30 Cent er tab, 0 Refill(s) clopidogrel 75 mg 75 mg = 1 tab, No Longer 09/20 [facility] oral tablet PO, Daily, # 30 Active 2014 [facility] prabhjot tab, 0 Center Refill(s) Saline Flush 0.9% Notes: (Same No Longer [place] as: BD Active 2014 Medical Posiflush) Center Docusate Notes: (Same No Longer [facility] as: Colace) (Do Active 2014 Medical Not Crush) Center sennosides, [facility]CI Notes: (Same No Longer 12/26/ [facility] as: Senokot) Active 2014 Medical Center potassium chloride Notes: (Same Inactive [place] as: KCL) 2014 Medical Infuse no Center faster than 10 mEq/hr if given peripherally. magnesium sulfate 2 gm, 50 mL, Inactive [place] Route: IVPB, 2014 Medical Drug form: INJ, Center ONCE, Start date: 09/20/15 5:00:00, Stop date: 09/20/15 5:00:00 Hydralazine Notes: (Same [place] Long[place] as: Apresoline) Active 2014 Medical Push over 5 Center minutes potassium chloride Notes: (Same No Longer [facility] as: KCL) Active 2014 Medical Infuse over 2 Center hours. Alteplase 81 mg, Route: Inactive [place] IV, ONCE, 2014 Medical Dosing Weight Center 100, kg, For Stroke Infusion, Start date: 09/19/15 21:53:00, Stop date: 09/19/15 21:53:00 Regular Insulin, 60 units) No Longer [facility] Human 100 UNT/ML Stable for 28 Active 2014 edical Injectable Solution days at room Center temperature Expires in days from D ate Dextrose 50% 6.25 gm, 12.5 No Longer [place] Syringe mL, Route: IVP, Active 2014 Medical Drug Form: INJ, Center Dosing Weight 100, kg, PRN, PRN Abnormal Lab Result, Start date: 09/19/15 21:52:00, Duration: 30 day, Stop date: 10/19/15 21:51:00 Saline Flush 0.9% Notes: (Same No Longer [facility] as: BD Active 2014 Medical Posiflush) Center Acetaminophen Notes: Do not No Longer [facility] exceed 4 Active 2014 Medical gm/day. (Same Center as: Tylenol) Ondansetron Notes: (Same [place] Long[place] as: Zofran) Active 2014 Medical MEDICATION Center WASTE Product Size: 4 mg Product Wasted: __0_ mg Nicardipine Notes: Same as: No Longer [facility] Cardene Active 2014 Medical Concentration: [place] (0.2 mg /1 ml ) Labetalol 105 mmHg, No Longer [facility] Priority: Active 2014 Medical Routine, Start Center date: 09/19/15 21:50:00, Duration: 30 day, Stop date: 10/19/15 21:49:00 Bisacodyl Notes: ([facility]: Dulcolax, Active 2014 [facility] Bisco-Lax) Center Sodium Chloride 1,000 mL, Rate: No Longer [facility] 0.154 MEQ/ML 50 ml/hr, Active 2014 [facility] Injectable Solution Infuse over: 20 Center hr, Route: IV, Dosing Weight 100 kg, Total Volume: 1,000, Start date: 09/19/15 21:50:00, Duration: 30 day, Stop date: 10/19/15 21:49:00 Saline Flush 0.9% Notes: Same as: No Longer 08/27 [facility] BD Posiflush Active 2014 [facility] Sterile Center Allergies, Adverse Reactions, Alerts No Known Medication Allergies Immunizations Immunization Date Given Site Status Last Updated Comments Cassia rce influenza virus 07/27/2015 completed [facility] vaccine[facility] virus 07/27/2015 completed [facility] vaccine, live, [facility] pneumococcal 07/27/2014 completed [facility] Hub[place] as 23-valent vaccine [facility]ococcal 07/27/2014 completed [facility] Hub[place] as 23-valent vaccine [facility] Results Order Name Results Value Reference Date Interpretation Comments Cassia rce Range CHEM PANEL Magnesium Lvl 2.4 1.8 - 2.4 10/20 [place] [facility] ELECTROLYTE AGAP 10.4 10.0 - 10/20 [place] S 20.0 [facility] ELECTROLYTE eGFR 57 10/20 Result [facility] S Comment: The Medical eGFR is Center calculated using the CKD-EPI formula. In most young, healthy individuals the eGFR will be >90 mL/min/1.73m2 . The eGFR declines with age. An eGFR of 60-89 may be normal in some populations, particularly the elderly, for whom the CKD-EPI formula has not been extensively validated. Use of the eGFR is not recommended in the following populations:< br/>
Felicita viduals with unstable creatinine concentration s, including patients and those with serious co-morbid conditions.<b r/>
Patie nts with extremes in muscle mass or diet.

The data above are obtained from the National Kidney Disease Education Program (NKDEP) which additionally recommends that when the eGFR is used in patients with extremes of body mass index for purposes of drug dosing, the eGFR should be multiplied by the estimated BMI. ELECTROLYTE CO2 34 24 - 32 10/20 [facility] ELECTROLYTE Chloride Lvl 98 95 - 109 10/20 [facility] ELECTROLYTE Potassium Lvl 3.4 3.5 - 5.1 10/20 [place] [facility] ELECTROLYTE Sodium Lvl 139 135 - 145 10/20 [facility] ELECTROLYTE Creatinine 1.24 0.50 - 10/20 [facility] S Lvl 1.40 [facility] ELECTROLYTE BUN 33 7 - 22 10/20 [facility] ELECTROLYTE Glucose Lvl 102 70 - 99 10/20 [facility] ELECTROLYTE Calcium Lvl 8.7 8.5 - 10.5 10/20 [facility] HEMATOLOGY Lymphocytes 14.3 20.0 - 10/20 [facility] 40.0 [facility] HEMATOLOGY Segs 73.3 45.0 - 10/20 [place] 75.0 [facility] HEMATOLOGY Lymphocytes # 1.8 1.0 - 5.5 10/20 [facility] HEMATOLOGY Eosinophils 2.6 0.0 - 4.0 10/20 [facility] HEMATOLOGY Monocytes 8.9 2.0 - 12.0 10/20 [facility] HEMATOLOGY Segs-Bands # 9.2 1.5 - 8.1 10/20 [facility] HEMATOLOGY Basophils 0.9 0.0 - 1.0 10/20 2015 [facility] HEMATOLOGY Monocytes # 1.1 0.0 - 0.8 10/20 [facility] HEMATOLOGY Basophils # 0.1 0.0 - 0.2 10/20 [facility] HEMATOLOGY Eosinophils # 0.3 0.0 - 0.5 10/20 [facility] HEMATOLOGY Platelet 303 133 - 450 10/20 [facility] HEMATOLOGY MPV 8.1 7.4 - 10.4 10/20 [facility] HEMATOLOGY RDW 17.4 11.5 - 10/20 14.5 [facility] HEMATOLOGY RBC 3.15 4.70 - 10/20 [place] 6.10 [facility] HEMATOLOGY WBC 12.5 3.7 - 10.4 10/20 [facility] HEMATOLOGY MCV 93.0 80.0 - 10/20 94.0 [facility] HEMATOLOGY MCH 30.4 27.0 - 10/20 31.0 [facility] HEMATOLOGY Hgb 9.6 14.0 - 10/20 18.0 [facility] HEMATOLOGY Hct 29.3 42.0 - 10/20 54.0 [facility] HEMATOLOGY MCHC 32.7 32.0 - 10/20 [place] 36.0 [facility] CHEM PANEL Phosphorus 4.0 2.5 - 4.5 10/19 [facility] CHEM PANEL Magnesium Lvl 2.4 1.8 - 2.4 10/19 [facility] CHEM PANEL eGFR 42 10/19 Result Comment: The Medical eGFR is Center calculated using the CKD-EPI formula. In most young, healthy individuals the eGFR will be >90 mL/min/1.73m2 . The eGFR declines with age. An eGFR of 60-89 may be normal in some populations, particularly the elderly, for whom the CKD-EPI formula has not been extensively validated. Use of the eGFR is not recommended in the following populations:< br/>
Felicita viduals with unstable creatinine concentration s, including patients and those with serious co-morbid conditions.<b r/>
Patie nts with extremes in muscle mass or diet.

The data above are obtained from the National Kidney Disease Education Program (NKDEP) which additionally recommends that when the eGFR is used in patients with extremes of body mass index for purposes of drug dosing, the eGFR should be multiplied by the estimated BMI. CHEM PANEL CO2 32 24 - 32 10/19 [facility] CHEM PANEL AGAP 12.6 10.0 - 10/19 . [facility] CHEM PANEL Calcium Lvl 8.3 8.5 - 10.5 10/19 [facility] CHEM PANEL Chloride Lvl 96 95 - 109 10/19 [facility] CHEM PANEL BUN 28 7 - 22 10/19 [facility] CHEM PANEL Glucose Lvl 139 70 - 99 10/19 [facility] CHEM PANEL Potassium Lvl 3.6 3.5 - 5.1 10/19 [facility] CHEM PANEL Sodium Lvl 137 135 - 145 10/19 [facility] CHEM PANEL Creatinine 1.58 0.50 - 10/19 [facility] Lvl 1.40 [facility] CHEM PANEL Magnesium Lvl 2.5 1.8 - 2.4 10/19 [facility] ELECTROLYTE AGAP 12.5 10.0 - 10/19 S . [facility] ELECTROLYTE eGFR 59 10/19 [facility] Comment: [facility] eGFR is Center calculated using the CKD-EPI formula. In most young, healthy individuals the eGFR will be >90 mL/min/1.73m2 . The eGFR declines with age. An eGFR of 60-89 may be normal in some populations, particularly the elderly, for whom the CKD-EPI formula has not been extensively validated. Use of the eGFR is not recommended in the following populations:< br/>
Felicita viduals with unstable creatinine concentration s, including patients and those with serious co-morbid conditions.<b r/>
Patie nts with extremes in muscle mass or diet.

The data above are obtained from the National Kidney Disease Education Program (NKDEP) which additionally recommends that when the eGFR is used in patients with extremes of body mass index for purposes of drug dosing, the eGFR should be multiplied by the estimated BMI. ELECTROLYTE BUN 23 7 - 22 10/19 [facility] ELECTROLYTE Glucose Lvl 109 70 - 99 10/19 [facility] ELECTROLYTE Sodium Lvl 140 135 - 145 10/19 s [facility] ELECTROLYTE Chloride Lvl 99 95 - 109 10/19 [place] [facility] ELECTROLYTE Potassium Lvl 3.5 3.5 - 5.1 10/19 [place] [facility] ELECTROLYTE Creatinine 1.20 0.50 - 10/19 [place] S Lvl 1.40 /2015 [facility] ELECTROLYTE Calcium Lvl 8.6 8.5 - 10.5 10/19 [place] [facility] ELECTROLYTE CO2 32 24 - 32 10/19 S [facility] HEMATOLOGY RDW 16.7 11.5 - 10/19 [place] 14.5 [facility] HEMATOLOGY MCHC 32.7 32.0 - 10/19 [place] 36.0 [facility] HEMATOLOGY MCH 30.4 27.0 - 10/19 [place] 31.0 [facility] HEMATOLOGY MCV 92.8 80.0 - 10/19 [place] 94.0 [facility] HEMATOLOGY Hct 31.3 42.0 - 10/19 [place] 54.0 [facility] HEMATOLOGY WBC 12.7 3.7 - 10.4 10/19 [facility] HEMATOLOGY RBC 3.38 4.70 - 10/19 [place] 6.10 [facility] HEMATOLOGY MPV 7.4 7.4 - 10.4 10/19 [facility] HEMATOLOGY Platelet 332 133 - 450 10/19 [facility] HEMATOLOGY Hgb 10.3 14.0 - 10/19 [place] 18.0 [facility] HEMATOLOGY Basophils # 0.1 0.0 - 0.2 10/19 [facility] HEMATOLOGY Eosinophils # 0.4 0.0 - 0.5 10/19 [facility] HEMATOLOGY Monocytes # 1.2 0.0 - 0.8 10/19 [facility] HEMATOLOGY Lymphocytes # 1.8 1.0 - 5.5 10/19 [facility] HEMATOLOGY Segs-Bands # 9.2 1.5 - 8.1 10/19 [facility] HEMATOLOGY Monocytes 9.4 2.0 - 12.0 10/19 [facility] HEMATOLOGY Lymphocytes 13.9 20.0 - 10/19 [place] 40.0 [facility] HEMATOLOGY Segs 72.8 45.0 - 10/19 [place] 75.0 [facility] HEMATOLOGY Eosinophils 3.0 0.0 - 4.0 10/19 [facility] HEMATOLOGY Basophils 0.9 0.0 - 1.0 10/19 [facility] CHEM PANEL Phosphorus 2.8 2.5 - 4.5 10/18 [facility] HEMATOLOGY Basophils # 0.2 0.0 - 0.2 10/18 [facility] HEMATOLOGY Segs 72.0 45.0 - 10/18 [place] 75.0 [facility] HEMATOLOGY Monocytes 9.1 2.0 - 12.0 10/18 [facility] HEMATOLOGY Eosinophils 3.0 0.0 - 4.0 10/18 [facility] HEMATOLOGY Lymphocytes 14.5 20.0 - 10/18 [place] 40.0 [facility] HEMATOLOGY Lymphocytes # 1.6 1.0 - 5.5 10/18 [facility] HEMATOLOGY Eosinophils # 0.3 0.0 - 0.5 10/18 [place] [facility] HEMATOLOGY Segs-Bands # 8.0 1.5 - 8.1 10/18 [facility] HEMATOLOGY Monocytes # 1.0 0.0 - 0.8 10/18 [facility] HEMATOLOGY Basophils 1.4 0.0 - 1.0 10/18 [facility] HEMATOLOGY MPV 7.8 7.4 - 10.4 10/18 [facility] HEMATOLOGY RDW 16.1 11.5 - 10/18 [place] 14.5 [facility] HEMATOLOGY Platelet 337 133 - 450 10/18 [facility] HEMATOLOGY RBC 3.09 4.70 - 10/18 [place] 6.10 [facility] HEMATOLOGY WBC 11.1 3.7 - 10.4 10/18 [facility] HEMATOLOGY MCHC 32.6 32.0 - 10/18 [place] 36.0 [facility] HEMATOLOGY MCV 92.1 80.0 - 10/18 [place] 94.0 [facility] HEMATOLOGY MCH 30.0 27.0 - 10/18 [place] 31.0 [facility] HEMATOLOGY Hgb 9.3 14.0 - 10/18 [place] 18.0 [facility] HEMATOLOGY Hct 28.5 42.0 - 10/18 [place] 54.0 [facility] CHEM PANEL Phosphorus 2.2 2.5 - 4.5 10/[address] CHEM PANEL Lactic Acid 1.5 0.5 - 2.2 10/14 [facility] s l [facility] CHEM PANEL AST 29 0 - 37 10/[address] CHEM PANEL Albumin Lvl 2.2 3.5 - 5.0 10/14 [facility] CHEM PANEL Total Protein 5.6 6.4 - 8.4 10/14 [facility] CHEM PANEL ALT 56 0 - 65 10/[address] CHEM PANEL Bili Total 1.1 0.2 - 1.3 10/14 [facility] CHEM PANEL Alk Phos 202 39 - 136 10/[address] CHEM PANEL Bili Direct 0.3 0.0 - 0.3 10/14 [facility] CHEM PANEL Bili Indirect 0.8 0.0 - 1.0 10/14 [facility] CHEM PANEL A/G Ratio 0.6 0.7 - 1.6 10/[address] CHEM PANEL Globulin 3.4 2.0 - 4.0 10/[address] URINE AND UA RBC 2 0 - 2 10/14 [facility] [place] [facility] URINE AND UA WBC 1 0 - 5 10/14 [facility] [place] [facility] [address] [place] [address] URINE AND UA Leuk Est Negative Negative 10/14 [facility] [place] [facility] (10/14/15 12:34 AM) [facility] URINE AND UA Nitrite Negative Negative 10/14 [facility] [place] [facility] (10/14/15 12:34 AM) [facility] URINE AND UA Blood Trace Negative 10/14 [facility] [place] [facility] *ABN* /2015 [facility] (10/14/15 12:34 AM) Cente r URINE AND UA <=1.0 0.1 - 1.0 10/14 [facility] [place] [facility] Urobilinogen mg/dL /2015 [facility] URINE AND UA Sq Epi None Seen 10/14 [facility] [address] [place] [address] URINE AND UA Hyal Cast 7 0 - 2 10/[address] URINE AND UA Mucus Few /LPF None Seen 10/14 [facility] STOOL /LPF /2015 [facility] URINE AND UA Spec Grav 1.007 <=1.030 10/14 [place] STOOL [facility] URINE AND UA Turbidity Clear Clear 10/14 [facility] STOOL (10/14/15 12:34 AM) /2015 [facility] URINE AND UA Color Yellow Yellow 10/14 [facility] STOOL *NA* /2015 Medical (10/14/15 12:34 AM) Cente r URINE AND UA pH 5.5 5.0 - 8.0 10/14 [facility] STOOL [facility] URINE AND UA Glucose Negative Negative 10/14 [facility] STOOL mg/dL mg/dL [facility] URINE AND UA Protein Negative Negative 10/14 [facility] STOOL mg/dL mg/dL /2015 [facility] URINE AND UA Bili Negative Negative 10/14 [facility] STOOL *NA* /2015 Medical (10/14/15 12:34 AM) Cente r URINE AND UA Ketones Negative Negative 10/14 [facility] mg/dL mg/dL /2015 [facility] ANEMIA Ferritin Lvl 285 22 - 275 10/13 [facility] ANEMIA % [place] 11 12 - 57 10/13 [facility] ANEMIA UIBC 203 110 - 370 10/13 [facility] STUDY [facility] ANEMIA Iron 24 45 - 160 10/13 [facility] STUDY [facility] ANEMIA TIBC 227 228 - 428 10/13 [facility] CHEM PANEL Lactic Acid 2.9 0.5 - 2.2 10/13 [place] [facility] HEMATOLOGY Sed Rate 18 0 - 15 10/13 [facility] IMMUNOLOGY C-REACTIVE 13.3 <=2.9 mg/L 10/13 [place] [facility] CHEM PANEL ALT 89 0 - 65 10/11 [place] [facility] CHEM PANEL Albumin Lvl 2.3 3.5 - 5.0 10/11 [place] [facility] CHEM PANEL Total Protein 5.7 6.4 - 8.4 10/11 [place] [facility] CHEM PANEL Alk Phos 178 39 - 136 10/11 [place] [facility] CHEM PANEL AST 35 0 - 37 10/11 [facility] CHEM PANEL Bili Direct 0.3 0.0 - 0.3 10/11 [place] [facility] CHEM PANEL Bili Total 1.0 0.2 - 1.3 10/11 [facility] CHEM PANEL A/G Ratio 0.7 0.7 - 1.6 10/11 [facility]2015 [facility] CHEM PANEL Globulin 3.4 2.0 - 4.0 10/11 [facility]2015 [facility] CHEM PANEL Bili Indirect 0.7 0.0 - 1.0 10/11 [facility] CHEM PANEL A/G Ratio 0.7 0.7 - 1.6 10/10 [facility] CHEM PANEL Globulin 3.4 2.0 - 4.0 10/10 [facility]2015 [facility] CHEM PANEL Bili Indirect 0.5 0.0 - 1.0 10/10 [facility] CHEM PANEL AST 35 0 - 37 10/10 [facility]2015 [facility] CHEM PANEL ALT 104 0 - 65 10/10 [facility]2015 [facility] CHEM PANEL Bili Total 1.0 0.2 - 1.3 10/[address] CHEM PANEL Albumin Lvl 2.5 3.5 - 5.0 10/10 [facility] CHEM PANEL Total Protein 5.9 6.4 - 8.4 10/10 [facility] CHEM PANEL Alk Phos 180 39 - 136 10/[address] CHEM PANEL Bili Direct 0.5 0.0 - 0.3 10/10 [facility] HEMATOLOGY Sed Rate 12 0 - 15 10/[address] URINE AND UA Color Yellow Yellow 10/09 [facility] STOOL *NA* /2015 Medical (10/09/15 11:37 AM) Cente r URINE AND UA Turbidity Clear Clear 10/09 [facility] STOOL (10/09/15 11:37 AM) /2015 [facility] URINE AND UA Bili Negative Negative 10/09 [facility] STOOL *NA* /2015 Medical (10/09/15 11:37 AM) Cente r URINE AND UA Blood Negative Negative 10/09 [facility] STOOL (10/09/15 11:37 AM) /2015 [facility] URINE AND UA WBC 1 0 - 5 10/09 [facility] STOOL /2015 [facility] [place] URINE AND UA Nitrite Negative Negative 10/09 [facility] STOOL (10/09/15 11:37 AM) /2015 [facility] URINE AND UA Leuk Est Negative Negative 10/09 [facility] STOOL (10/09/15 11:37 AM) [facility] URINE AND UA pH 5.0 5.0 - 8.0 10/09 [facility] URINE AND UA Spec Grav 1.010 <=1.030 10/09 [facility] [address] [place] [address] URINE AND UA Protein Negative Negative 10/09 [facility] mg/dL mg/dL [facility] URINE AND UA Ketones Negative Negative 10/09 [facility] mg/dL mg/dL [facility] URINE AND UA Glucose Negative Negative 10/09 [facility] mg/dL mg/dL [facility] URINE AND UA Sq Epi None Seen 10/09 [facility] URINE AND UA <=1.0 0.1 - 1.0 10/09 [facility] Urobilinogen mg/dL [facility] URINE AND UA Mucus Few /LPF None Seen 10/09 [facility] /LPF /2015 [facility] URINE AND UA Hyal Cast 1 0 - 2 10/09 [facility] URINE AND UA RBC 1 0 - 2 10/09 [facility] [address] [place] [address] HEMATOLOGY RBC Morph Normal 10/09 [facility] (10/09/15 4:52 AM) [facility] HEMATOLOGY Plt Morph Normal 10/09 [facility] (10/09/15 4:52 AM) [facility] ANEMIA Ferritin Lvl 189 22 - 275 10/06 [facility] STUDY /2015 [facility] ANEMIA % [place] 12 12 - 57 10/06 [facility] /[address] [place] [address] ANEMIA UIBC 181 110 - 370 10/06 [facility] ANEMIA Iron 24 45 - 160 10/06 [facility] STUDY [facility] ANEMIA TIBC 205 228 - 428 10/06 [facility] /2015 [facility] HEMATOLOGY PB Smear Path Peripheral 10/06 [place] blood /2015 [facility] smear Center shows hypochromi c anemia, slight polychroma rashawn, a few elliptocyt es, neutrophil ia with reactive PMNs. Impression : (1) anemia- iron panel results are borderline between anemia of chronic disease and iron deficiency anemia, (2) a reactive condition. CPT: 48486 HEMATOLOGY Retic Auto 4.3 0.5 - 1.5 10/06 [facility] [address] [place] [address] BLOOD BANK Antibody Scrn Negative 10/05 [facility] as RESULTS (10/05/15 4:35 AM) /2015 [facility] BLOOD BANK ABO/Rh O POS 10/05 [place] RESULTS /2015 [facility] HEMATOLOGY INR 1.68 0.85 - 10/03 [place] 1.17 [facility] HEMATOLOGY PT 20.1 12.0 - 10/03 [place] 14.7 /2015 [facility] HEMATOLOGY PTT 36.2 22.9 - 10/03 [place] 35.8 /2015 [facility] CARDIAC Total CK 138 12 - 191 10/02 [facility] ENZYMES [facility] BLOOD BANK Antibody Scrn Negative 10/02 [place] RESULTS (10/02/15 9:57 AM) /2015 [facility] BLOOD BANK ABO/Rh O POS 10/02 [facility] RESULTS /2015 [facility] CHEM PANEL B/C Ratio 16 6 - 25 10/02 [facility] HEMATOLOGY PT 20.9 12.0 - 10/02 [place] 14.7 /2015 [facility] HEMATOLOGY INR 1.77 0.85 - 10/02 [place] 1.17 [facility] HEMATOLOGY PTT 33.9 22.9 - 10/02 [place] 35.8 /2015 [facility] CHEM PANEL Uric Acid 6.8 3.8 - 8.0 10/02 [facility] URINE AND UA Sq Epi None Seen 10/02 [facility] STOOL [facility] URINE AND UA <=1.0 0.1 - 1.0 10/02 [facility] [place] [facility] Urobilinogen mg/dL /2015 [facility] URINE AND UA Bili Negative Negative 10/02 [facility] STOOL *NA* [facility] (10/01/15 6:37 PM) [place] URINE AND UA Blood Moderate Negative 10/02 [facility] STOOL *ABN* [facility] (10/01/15 6:37 PM) [place] URINE AND UA Nitrite Negative Negative 10/02 [facility] (10/01/15 6:37 PM) /2015 [facility] URINE AND UA Ketones Negative Negative 10/02 [facility] STOOL mg/dL mg/dL [facility] URINE AND UA Glucose Negative Negative 10/02 [facility] mg/dL mg/dL [facility] URINE AND UA Mucus Few /LPF None Seen 10/02 [facility] STOOL /LPF /2015 [facility] URINE AND UA Hyal Cast 3 0 - 2 10/02 [facility] STOOL [facility] URINE AND UA Color Yellow Yellow 10/02 [facility] STOOL *NA* [facility] (10/01/15 6:37 PM) [place] URINE AND UA WBC 15 0 - 5 10/02 [facility] URINE AND UA Leuk Est Moderate Negative 10/02 [facility] *ABN* [facility] (10/01/15 6:37 PM) [place] URINE AND UA Turbidity Slight Clear 10/02 [facility] *ABN* [facility] (10/01/15 6:37 PM) [place] URINE AND UA Spec Grav 1.016 <=1.030 10/02 [facility] URINE AND UA pH 5.0 5.0 - 8.0 10/02 [facility] URINE AND UA Protein 50 mg/dL Negative 10/02 [facility] mg/dL /2015 [facility] URINE AND UA Bacteria Few /HPF None Seen 10/02 [facility] STOOL /HPF /2015 [facility] URINE AND UA RBC 9 0 - 2 10/02 [facility] URINE CHEM U Protein 52.6 10/02 [facility] URINE CHEM U Sodium 16 10/02 [facility] URINE CHEM U Creatinine 107.00 10/02 [facility] URINE CHEM U Prot/Creat 0.5 10/02 [facility] CHEM PANEL Lactic Acid 5.6 0.5 - 2.2 10/01 Result [facility] L[facility] Comment: [facility] Result(s) called to Juliocesar Ramsey at 10/01/2015 16:15 by KW. Read back OK. HEMATOLOGY PTT 35.1 22.9 - 10/01 [place] 35.8 /2015 [facility] HEMATOLOGY PT 21.2 12.0 - 10/01 [place] 14.7 /2016 [facility] HEMATOLOGY INR 1.80 0.85 - 10/01 [place] 1.17 [facility] BLOOD BANK RBC product Product available 10/01 [facility] RESULTS (10/01/15 3:00 AM) /2015 [facility] PARATHYROID Ca Ion WB 1.08 1.05 - 10/01 [place] PROFILE 1. [facility] PARATHYROID Ca Norm WB 1.09 1.05 - 10/01 [facility] PROFILE . [facility] CHEM PANEL B/C Ratio 9 6 - 25 10/01 [facility] BACTERIAL - MRSA by PCR Negative 09/30 [facility] SEROLOGY (09/30/15 5:53 PM) /2015 [facility] HEMATOLOGY RBC Morph Normal 09/30 [facility] (09/30/15 5:53 PM) /2015 [facility] HEMATOLOGY Plt Morph Normal 09/30 [facility] (09/30/15 5:53 PM) [facility] PARATHYROID Ca Norm WB 0.95 1.05 - 09/30 [facility] PROFILE 1. [facility] PARATHYROID Ca Ion WB 0.99 . - 09/30 [facility] PROFILE 1. [facility] CARDIAC BNP 508 <=100 09/30 [facility] ENZYMES pg/mL /2015 [facility] CHEM PANEL Lipase Lvl 188 73 - 393 09/30 [facility] CHEM PANEL B/C Ratio 14 6 - 25 09/30 [facility] CHEM PANEL Amylase Lvl 52 25 - 115 09/30 [facility] BLOOD BANK Antibody Scrn Negative 09/29 [facility] as RESULTS (09/29/15 5:51 PM) [facility] BLOOD BANK ABO/Rh O POS 09/29 [facility] RESULTS [facility] CHEM PANEL Phosphorus 3.1 2.5 - 4.5 09/22 [facility] CHEM PANEL Magnesium Lvl 2.0 1.8 - 2.4 09/22 [facility] /2014 [facility] ELECTROLYTE CO2 25 24 - 32 09/22 [facility] S /2014 [facility] ELECTROLYTE Calcium Lvl 8.4 8.5 - 10.5 09/22 [facility] S [facility] ELECTROLYTE AGAP 12.2 10.0 - 09/22 [facility] S 20.0 [facility] ELECTROLYTE eGFR 85 09/22 Result [facility] Comment: [facility] eGFR is Center calculated using the CKD-EPI formula. In most young, healthy individuals the eGFR will be >90 mL/min/1.73m2 . The eGFR declines with age. An eGFR of 60-89 may be normal in some populations, particularly the elderly, for whom the CKD-EPI formula has not been extensively validated. Use of the eGFR is not recommended in the following populations:< br/>
Felicita viduals with unstable creatinine concentration s, including patients and those with serious co-morbid conditions.<b r/>
Patie nts with extremes in muscle mass or diet.

The data above are obtained from the National Kidney Disease Education Program (NKDEP) which additionally recommends that when the eGFR is used in patients with extremes of body mass index for purposes of drug dosing, the eGFR should be multiplied by the estimated BMI. ELECTROLYTE Glucose Lvl 115 70 - 99 09/22 [facility] ELECTROLYTE BUN 13 7 - 22 09/22 [facility] 2014 [facility] ELECTROLYTE Creatinine 0.88 0.50 - 09/22 [facility] S Lvl 1.40 [facility] ELECTROLYTE Sodium Lvl 143 135 - 145 09/22 [facility] s [facility] ELECTROLYTE Potassium Lvl 3.2 3.5 - 5.1 09/22 [place] [facility] ELECTROLYTE Chloride Lvl 109 95 - 109 09/22 [facility] HEMATOLOGY Eosinophils 6.9 0.0 - 4.0 09/22 [facility] HEMATOLOGY Segs 57.6 45.0 - 09/22 [place] 75.0 [facility] HEMATOLOGY Monocytes 11.0 2.0 - 12.0 09/22 2014 [facility] HEMATOLOGY Basophils 1.0 0.0 - 1.0 09/22 [facility] HEMATOLOGY Lymphocytes 23.5 20.0 - 09/22 [facility] 40.0 [facility] HEMATOLOGY Eosinophils # 0.5 0.0 - 0.5 09/22 [facility] HEMATOLOGY Segs-Bands # 4.5 1.5 - 8.1 09/22 [facility] HEMATOLOGY Monocytes # 0.9 0.0 - 0.8 09/22 [facility] HEMATOLOGY Basophils # 0.1 0.0 - 0.2 09/22 [facility] HEMATOLOGY Lymphocytes # 1.8 1.0 - 5.5 09/22 [facility] HEMATOLOGY MPV 8.4 7.4 - 10.4 09/22 2014 [facility] HEMATOLOGY Platelet 218 133 - 450 09/22 [facility] HEMATOLOGY WBC 7.8 3.7 - 10.4 09/22 2014 [facility] HEMATOLOGY Hgb 13.6 14.0 - 09/22 [facility] 18.0 [facility] HEMATOLOGY MCHC 32.5 32.0 - 09/22 [place] 36.0 [facility] HEMATOLOGY MCH 29.7 27.0 - 09/22 31.0 /2014 [facility] HEMATOLOGY RBC 4.58 4.70 - 09/22 [place] 6.10 /2014 [facility] HEMATOLOGY MCV 91.4 80.0 - 09/22 [facility] 94.0 [facility] HEMATOLOGY Hct 41.8 42.0 - 09/22 [place] 54.0 /2014 [facility] HEMATOLOGY RDW 14.8 11.5 - 09/22 14. [facility] CHEM PANEL Phosphorus 2.5 2.5 - 4.5 09/21 [facility] CHEM PANEL Magnesium Lvl 2.1 1.8 - 2.4 09/21 [facility] CHEM PANEL eGFR 94 09/21 [facility] Comment: [facility] eGFR is Center calculated using the CKD-EPI formula. In most young, healthy individuals the eGFR will be >90 mL/min/1.73m2 . The eGFR declines with age. An eGFR of 60-89 may be normal in some populations, particularly the elderly, for whom the CKD-EPI formula has not been extensively validated. Use of the eGFR is not recommended in the following populations:< br/>
Felicita viduals with unstable creatinine concentration s, including patients and those with serious co-morbid conditions.<b r/>
Patie nts with extremes in muscle mass or diet.

The data above are obtained from the National Kidney Disease Education Program (NKDEP) which additionally recommends that when the eGFR is used in patients with extremes of body mass index for purposes of drug dosing, the eGFR should be multiplied by the estimated BMI. CHEM PANEL BUN 10 7 - 22 09/21 [facility] CHEM PANEL Glucose Lvl 108 70 - 99 09/21 [facility] CHEM PANEL CO2 23 24 - 32 09/21 [facility] CHEM PANEL Calcium Lvl 8.5 8.5 - 10.5 09/21 [facility] CHEM PANEL Creatinine 0.69 0.50 - 09/21 [place] Lvl 1.40 [facility] CHEM PANEL Chloride Lvl 111 95 - 109 09/21 [facility] CHEM PANEL Potassium Lvl 3.3 3.5 - 5.1 09/21 [facility] CHEM PANEL Sodium Lvl 145 135 - 145 09/21 [facility] CHEM PANEL AGAP 14.3 10.0 - 09/21 [place] 20.0 [facility] HEMATOLOGY Basophils # 0.1 0.0 - 0.2 09/21 [facility] HEMATOLOGY Lymphocytes # 1.6 1.0 - 5.5 09/21 [facility] HEMATOLOGY Segs-Bands # 5.4 1.5 - 8.1 09/21 [facility] HEMATOLOGY Eosinophils # 0.2 0.0 - 0.5 09/21 [facility] HEMATOLOGY Monocytes # 0.8 0.0 - 0.8 09/21 [facility] HEMATOLOGY Basophils 0.8 0.0 - 1.0 09/21 [facility] HEMATOLOGY Monocytes 9.6 2.0 - 12.0 09/21 [facility] HEMATOLOGY Eosinophils 2.1 0.0 - 4.0 09/21 [facility] HEMATOLOGY Segs 67.7 45.0 - 09/21 [place] 75.0 [facility] HEMATOLOGY Lymphocytes 19.8 20.0 - 09/21 [place] 40.0 [facility] HEMATOLOGY RDW 15.0 11.5 - 09/21 [place] 14.5 [facility] HEMATOLOGY Platelet 199 133 - 450 09/21 [facility] HEMATOLOGY MPV 8.2 7.4 - 10.4 09/21 [facility] HEMATOLOGY Hgb 13.6 14.0 - 09/21 [place] 18.0 [facility] HEMATOLOGY MCH 29.2 27.0 - 09/21 [place] 31.0 [facility] HEMATOLOGY Hct 43.0 42.0 - 09/21 [place] 54.0 [facility] HEMATOLOGY MCV 92.4 80.0 - 09/21 [place] 94.0 [facility] HEMATOLOGY WBC 8.0 3.7 - 10.4 09/21 [facility] HEMATOLOGY RBC 4.66 4.70 - 09/21 [place] 6.10 [facility] HEMATOLOGY MCHC 31.6 32.0 - 09/21 [place] 36.0 [facility] PARATHYROID Ca Ion WB 1.05 1.05 - 09/21 [place] PROFILE 1.25 /2014 [facility] PARATHYROID Ca Norm WB 1.06 1.05 - 09/21 [place] PROFILE 1. [facility] CARDIAC Total CK 45 12 - 191 09/20 [facility] /2014 [facility] CARDIAC Troponin-I 0.02 0.00 - 09/20 [facility] ENZYMES 0.40 [facility] CARDIAC Troponin-T <0.010 0.000 - 09/20 [facility] ENZYMES 0.100 [facility] BACTERIAL - MRSA by PCR Negative 09/20 [facility] s SEROLOGY (09/20/15 2:08 AM) /2014 [facility] CARDIAC Total CK 45 12 - 191 09/20 [facility] /2014 [facility] CARDIAC Troponin-T <0.010 0.000 - 09/20 [facility] ENZYMES 0.100 [facility] CARDIAC Troponin-I 0.02 0.00 - 09/20 [facility] ENZYMES 0.40 [facility] CHEM PANEL eGFR 72 09/20 [facility] Comment: [facility] eGFR is Center calculated using the CKD-EPI formula. In most young, healthy individuals the eGFR will be >90 mL/min/1.73m2 . The eGFR declines with age. An eGFR of 60-89 may be normal in some populations, particularly the elderly, for whom the CKD-EPI formula has not been extensively validated. Use of the eGFR is not recommended in the following populations:< br/>
Felicita viduals with unstable creatinine concentration s, including patients and those with serious co-morbid conditions.<b r/>
Patie nts with extremes in muscle mass or diet.

The data above are obtained from the National Kidney Disease Education Program (NKDEP) which additionally recommends that when the eGFR is used in patients with extremes of body mass index for purposes of drug dosing, the eGFR should be multiplied by the estimated BMI. CHEM PANEL Calcium Lvl 8.3 8.5 - 10.5 09/20 [place] [facility] CHEM PANEL Creatinine 1.02 0.50 - 09/20 [facility] Lvl 1. [facility] CHEM PANEL Sodium Lvl 141 135 - 145 09/20 [facility] CHEM PANEL BUN 18 7 - 22 09/20 [facility] CHEM PANEL CO2 24 24 - 32 09/20 [facility] CHEM PANEL AGAP 12.1 10.0 - 09/20 20.0 [facility] CHEM PANEL Potassium Lvl 3.1 3.5 - 5.1 09/20 [facility] CHEM PANEL Chloride Lvl 108 95 - 109 09/20 [facility] CHEM PANEL Glucose Lvl 116 70 - 99 09/20 [facility] CHEM PANEL Bili Indirect 0.5 0.0 - 1.0 09/20 [facility] CHEM PANEL Bili Direct 0.3 0.0 - 0.3 09/20 [facility] CHEM PANEL Bili Total 0.8 0.2 - 1.3 09/20 [facility] CHEM PANEL ASPARTATE 18 0 - 37 09/20 [facility] CHEM PANEL Alk Phos 136 39 - 136 09/20 [facility] CHEM PANEL A/G Ratio 0.8 0.7 - 1.6 09/20 [facility] [place] CHEM PANEL ALANINE 29 0 - 65 09/20 [facility] CHEM PANEL Total Protein 7.1 6.4 - 8.4 09/20 [facility] CHEM PANEL Globulin 4.0 2.0 - 4.0 09/20 [facility] [place] CHEM PANEL Albumin Lvl 3.1 3.5 - 5.0 09/20 [facility] [place] CHEM PANEL Phosphorus 3.8 2.5 - 4.5 09/20 [facility] [place] CHEM PANEL Magnesium Lvl 1.8 1.8 - 2.4 09/20 [facility] [place] HEMATOLOGY MCHC 32.4 32.0 - 09/20 [place] 36.0 [facility] HEMATOLOGY RDW 14.2 11.5 - 09/20 [place] 14.5 [facility] [place] HEMATOLOGY Platelet 196 133 - 450 09/20 [facility] [place] HEMATOLOGY MPV 8.1 7.4 - 10.4 09/20 [facility] HEMATOLOGY MCH 29.6 27.0 - 09/20 [place] 31.0 [facility] HEMATOLOGY WBC 8.1 3.7 - 10.4 09/20 [facility] [place] HEMATOLOGY RBC 4.62 4.70 - 09/20 [place] 6.10 [facility] HEMATOLOGY Hgb 13.6 14.0 - 09/20 [place] 18.0 /2014 [facility] HEMATOLOGY Hct 42.2 42.0 - 09/20 [place] 54.0 [facility] HEMATOLOGY MCV 91.3 80.0 - 09/20 [place] 94.0 /2014 [facility] HEMATOLOGY Sed Rate 17 0 - 15 09/20 [facility] [place] HEMATOLOGY Basophils 0.7 0.0 - 1.0 09/20 [facility] [place] HEMATOLOGY Lymphocytes 23.3 20.0 - 09/20 [place] 40.0 [facility] HEMATOLOGY Monocytes 7.7 2.0 - 12.0 09/20 [facility] HEMATOLOGY Segs 66.5 45.0 - 09/20 [place] 75.0 [facility] HEMATOLOGY Eosinophils 1.8 0.0 - 4.0 09/20 [facility] HEMATOLOGY Eosinophils # 0.1 0.0 - 0.5 09/20 [place] [facility] HEMATOLOGY Basophils # 0.1 0.0 - 0.2 09/20 [place] [facility] HEMATOLOGY Lymphocytes # 1.9 1.0 - 5.5 09/20 [place] [facility] HEMATOLOGY Monocytes # 0.6 0.0 - 0.8 09/20 [facility] HEMATOLOGY Segs-Bands # 5.4 1.5 - 8.1 09/20 [facility] PARATHYROID Ca Ion WB 1.06 1.05 - 09/20 [place] PROFILE . [facility] PARATHYROID Ca Norm WB 1.06 1.05 - 09/20 PROFILE . [facility] DRUG SCREEN UDS Note See Note 09/20 [place] *NA* /2014 Medical (09/19/15 10:09 PM) [facility] DRUG SCREEN U Phencyc Scr Negative Negative 09/20 [place] *NA* Medical (09/19/15 10:09 PM) [facility] DR[facility] S[place] Benz[place] Negative Negative 09[place] *NA* Medical (09/19/15 10:09 PM) [facility] DRUG SCREEN U Cocaine Scr Negative Negative 09/20 [place] *NA* Medical (09/19/15 10:09 PM) [facility] DRUG SCREEN U Opiate Scr Negative Negative 09/20 [place] *NA* Medical (09/19/15 10:09 PM) [facility] DRUG SCREEN U Cannab Scr Negative Negative 09/20 [place] *NA* Medical (09/19/15 10:09 PM) [facility] DRUG S[place] Amph Scr Negative Negative 09/[place] *[place] (09/19/15 10:09 PM) [facility] DRUG SCREEN [place] Stephany Scr Negative Negative 09/[place] *[place]* [facility] (09/19/15 10:09 PM) [facility] LIPIDS CHD Risk 2.84 4.00 - 09/20 [place] 7.30 [facility] [place] LIPIDS HDL 37 >=61 mg/dL 09/20 [facility] LIPIDS LDL 37 <=99 mg/dL 09/20 [facility] (Calculated) /2014 [facility] LIPIDS VLDL 31 09/20 [facility] LIPIDS Chol 105 <=199 09/20 [facility] mg/dL [facility] LIPIDS Trig 157 <=149 09/20 [facility] mg/dL [facility] SPECIAL Hgb A1C 6.0 <=5.6 % 09/20 [facility] CHEMISTRY /2014 [facility] URINE AND UA Ketones Negative Negative 09/20 [facility] STOOL *NA* Medical (09/19/15 10:09 PM) Cent [facility] URINE AND UA Glucose Negative Negative 09/20 [facility] [place] [facility] (09/19/15 10:09 PM) /2014 [facility] URINE AND UA 0.2 0.1 - 1.0 09/20 [facility] [place] [facility] Urobilinogen /2014 [facility] URINE AND UA Blood Small Negative 09/20 [facility] STOOL *ABN* Medical (09/19/15 10:09 PM) Cent [facility] URINE AND UA Bili Negative Negative 09/20 [facility] STOOL *NA* Medical (09/19/15 10:09 PM) [facility] URINE AND UA Spec Grav 1.015 <=1.030 09/20 [facility] STOOL /2014 [facility] URINE AND UA Protein 100 mg/dL Negative 09/20 [facility] STOOL mg/dL [facility] URINE AND UA Turbidity Clear Clear 09/20 [facility] STOOL (09/19/15 10:09 PM) /2014 [facility] URINE AND UA pH 5.5 5.0 - 8.0 09/20 [facility] STOOL /2014 [facility] URINE AND UA Leuk Est Negative Negative 09/20 [facility] STOOL (09/19/15 10:09 PM) /2014 [facility] URINE AND UA Nitrite Negative Negative 09/20 [facility] STOOL (09/19/15 10:09 PM) /2014 [facility] URINE AND UA Color Yellow Yellow 09/20 [facility] STOOL *NA* /2014 Medical (09/19/15 10:09 PM) Cent [facility] URINE AND UA Sq Epi Occasional Few /LPF 09/20 [facility] STOOL /LPF /2014 [facility] URINE AND UA Bacteria None Seen None Seen 09/20 [place] [facility] (09/19/15 10:09 PM) /2014 [facility] URINE AND UA Mucus Rare /LPF None Seen 09/20 [facility] STOOL /LPF /2014 [facility] URINE AND UA WBC 0-2 /HPF None Seen 09/20 [facility] STOOL /HPF /2014 [facility] URINE AND UA RBC 0-2 /HPF 0 - 2 09/20 [facility] STOOL /2014 [facility] URINE AND UA Hyal Cast 0-2 0 - 2 09/20 [facility] STOOL (09/19/15 10:09 PM) /2014 [facility] CHEM PANEL POC 1.4 0.5 - 1.4 09/20 [facility] Creatinine /2014 [facility] HEMATOLOGY Rapid TEG Citrated Whole Blood 09/20 [facility] Sample Type (09/19/15 9:00 PM) /2014 [facility] HEMATOLOGY ACT (TEG) 113 86 - 118 09/20 [facility] [address] [place] [address] HEMATOLOGY [place] 0.5 09/20 [facility] HEMATOLOGY R-time 0.7 0.4 - 0.7 09/20 [facility] HEMATOLOGY K-time 1.2 0.6 - 2.3 09/20 [facility] HEMATOLOGY Angle 75 64 - 80 09/20 [facility] HEMATOLOGY G-value 9.4 5.0 - 11.6 09/20 [facility] HEMATOLOGY Max Amp 65 52 - 71 09/20 [facility] HEMATOLOGY Estimated % 4.1 0.0 - 7.5 09/20 [place] /2014 Comment: Medical "Significant Center Findings called to Mimi Quezada_at 09/19/2015 22:10__by ct__.Read Back OK." CARDIAC CK MB Index 3.8 0.0 - 2.5 09/20 [facility] ENZYMES /2014 [facility] CARDIAC Total CK 53 12 - 191 09/20 [facility] ENZYMES /2014 [facility] CARDIAC Troponin-I <0.02 0.00 - 09/20 [facility] ENZYMES 0.40 /2014 [facility] CARDIAC CK MB 2.0 0.5 - 3.6 09/20 [facility] ENZYMES /2014 [facility] HEMATOLOGY PTT 33.4 22.9 - 09/20 [place] 35.8 /2014 [facility] HEMATOLOGY INR 1.17 0.85 - 09/20 [place] 1.17 /2014 [facility] HEMATOLOGY PT 15.2 12.0 - 09/20 [facility] 14.7 /2014 [facility] Pathology Reports No Data Provided for This Section Diagnostic Reports Report Value Date Source Chest 2 views DX EXAM: Chest 2 views DX 11/14/2015 BETTINA Tompkins DATE: 11/14/2015 1:08 PM SECURITY SCREENER INDICATION: Atrial fibrillation. Ischemic stroke . Coronary artery disease. ADDITIONAL HISTORY: Status p ost coronary artery bypass graft, maze procedure, left atrial appendage closure, placement of [employer] Reveal LINQ model 11 on 09/30/2015. COMPARISON: Chest 1 view 10/15/2015, chest 2 view s 10/08/2015. TECHNIQUE: PA and lateral views of the chest. Im ages: 2. FINDINGS: Lines, tubes, devices: The l eft atrial appendage closure clamp and internal construction equipment technician remain in place. Lungs and pleura: The lung v olumes are slightly reduced with mild bibasilar atelectasis, greater on the left. There is a trace right pleural effusion and a small left pleural effusion. Heart and mediastinum: The h eart size is moderately enlarged, unchanged. The pulmonary vasculature is normal without evidence of pulmonary edema. There is a mildly tortuous thoracic aorta with calcifica tion along the arch. Again n oted are median sternotomy wires and mediastinal surgical clips. Bones: No acute bony abnorma lity is identified. The regional skeleton is unchanged. Soft tissues: Unremarkable. IMPRESSION: 1. Further decrease in size of bilateral pleural effusions, trace on the right and small on the left. 2. Reduced lung volumes wit h bibasilar atelectatic changes, greater on the left. Underlying infection is not excluded radiographically. 3. Otherwise no significant interval change. Chest 1view DX Portable ap semierect chest October 15, 2015 [facility] HISTORY: Abnormal chest sounds. Comparison is kari mcginnis with October 13. FINDINGS: Cardiomediastinal silhouette and posto perative changes are stable. Bilateral pleural effusions are stable. Lung volumes are diminished with resultant elevation of the hemidiaphragms, spurious widening of the diameter of the heart and crowding of the basal lung markings . This produces subsegmenta l atelectasis at both lung bases. The upper lungs are clear. CONCLUSION: No significant interval change in the appearance of the chest when compared to prior radiograph. HVI VAS Venous Lower INDICATION: lower extremity swelling with leukocytosis, concern for DVT 10/13/[address] [facility] IMPRESSION: 1. There is evidence of deep venous thrombosis involving the left gastrocnemius vein. 2. There is evidence of bila teral superficial vein thrombosis involving the great saphenous veins. 3. There is no evidence of deep vein thrombosis in the right lower extremity. COMMENT: No prior study is available for comparison. Bilateral lower extremity romero scale, color-flow, and Doppler examination of the venous system was performed. Examination of right distal external iliac, common femoral, superficial femoral, deep femoral, and popliteal veins demonstrate normal phasic flow and appropriate response to compression and augmentation . Calf veins are also imaged . The right short saphenous vein was not visualized. There is no evidence of deep venous thrombosis. The right great saphenous vein is noncompressible. This is consistent with superficial vein thrombosis. Examination of left distal e xternal iliac, common femoral, superficial femoral, deep femoral, and popliteal veins demonstrate normal phasic flow and appropriate response to compression and augmentation. Calf veins are also imaged. The left short saphenous vein was not visualized. The left great saphenous vein was noncompressible. This is consistent with superficial vein thrombosis. The left gastrocnem ius vein is noncompressible with no flow on color Doppler or spectral waveform analysis. This is consistent with deep vein thrombosis. Chest 1view DX EXAM: XR CHEST 1 VIEW 10/13/2015 [facility] DATE: 10/13/2015 at 1358 hours INDICATION: Abnormal chest sounds COMPARISON: Chest radiograph from 10/09/2015. TECHNIQUE: A single portable upright AP view of the chest was obtained. FINDINGS: The cardiac silhou ette remains enlarged. Postsurgical changes and support devices are unchanged in appearance. Multiple leads from external construction equipment technician device overly the mediastinum. Small bilateral pleural effu sions are again present. Dense bilateral retrocardiac opacities are again present representing singly or any combination of layering pleural fluid, subsegmental atelectasis and/or pneumonia. The upper lungs are clear. IMPRESSION: No significant interval change from 10/09/2015. Abdomen AP DX EXAM: Abdomen x-ray. 10/10/2015 [facility] DATE: 10/10/2015. INDICATIONS: Abdomen fullness FINDINGS: IMPRESSION: No small bowel dilation. Mil d gastric distention. Mild gaseous dilation of transverse colon at 7.2 cm with mild colonic stool burden within the descending colon. Chest 1view DX EXAM: XR CHEST 1 VIEW 10/09/2015 [facility] DATE: 2015-10-09 12:42:00 INDICATION: Abnormal chest sounds COMPARISON: Two views October 08, 2015 TECHNIQUE: A single portable view of the chest FINDINGS: Lines and tubes: None. Lungs and pleura: Bilateral retrocardiac linear opacities are unchanged compared to previous exam. Bilateral pleural effusions are stable. No pneumothorax Heart and mediastinum: The cardiomediastinal hannah houette remains enlarged. IMPRESSION: No significant interval changes sinc e the previous exam. Chest 2 views DX EXAM: XR CHEST 1 VIEW 10/08/2015 [facility] DATE: 2015-10-08 21:35:00 INDICATION: Tube placement/removal/reposition COMPARISON: Portable chest from October 06, 2015 TECHNIQUE: Frontal and lateral view of the chest . FINDINGS: Lines and tubes: None Lungs and pleura: Bilateral retrocardiac and basilar opacities are unchanged when compared exam yesterday. Bilateral pleural effusions are present with blunting of the costophrenic sulci and nonvisualization of either hemidiaphragm. No pneumothorax. Heart and mediastinum: The cardiomediastinal hannah houette remains enlarged. No acute osseous abnormality is present. Degenerative changes are noted in the thoracic spine. Medium sternotomy along with left atrial isolator are present. IMPRESSION: Unchanged bilate ral pleural effusion with bibasilar air space opacities which could represent the subsegmental atelectasis or persistent lower lobe consolidations. Chest 1view DX Portable ap semierect chest OCTOBER 06, [id number] [facility] HISTORY: Pleural effusion. Comparison is made yesterday. FINDINGS: Cardiomediastinal silhouette, postoperative changes and implantable loop recorder are stable. Left atrial appendage isolator is stable. Bilateral pleural effusions. The left apical pneumothorax noted yesterday is not visualized; however, a semierect film is suboptimal for that determination. There are bilateral retrocar diac opacities which obliterate the silhouettes of the descending thoracic aorta as well as both hemidiaphragms. These opacities represent, singly or in combination, layeri ng pleural effusions with or without lower lobe consolidation/atelectasis. The upper lungs are clear. CONCLUSION: 1. The left apical pneumotho rax noted yesterday is no longer seen; however, a semierect radiograph is suboptimal for that determination. 2. Increasing bilateral pleural effusions and re trocardiac opacities. Chest 1view DX EXAM: XR CHEST 1 VIEW 10/05/2015 [facility] DATE: 2015-10-05 01:11:00 INDICATION: Tube placement/removal/reposition . COMPARISON: October 04, 2015. TECHNIQUE: Single frontal chest radiograph FINDINGS: A right subclavian line is stable. Lung findings are stable. The cardiomediastinal silhouette is enlarged, bu t stable. Subcutaneous emphysema of the chest wall and low er neck appears increased. IMPRESSION: 1. Increased subcutaneous emphysema. 2. Stable tiny apical left pneumothorax. 3. Persistent layering right pleural effusion an d retrocardiac opacity. 4. Scattered subsegmental atelectasis. 5. Cardiomegaly. Chest 1view DX EXAM: XR CHEST 1 VIEW 10/04/2015 [facility] DATE: 2015-10-04 01:50:00 INDICATION: Tube placement/removal/reposition . COMPARISON: October 03, 2015. TECHNIQUE: Single frontal chest radiograph FINDINGS: The right-sided chest tube h as been removed. No definite right-sided pneumothorax is identified, but an upright view would be more sensitive for this. A right retrocardiac opacity persists and there is obscuration of the right hemidiaphragm. A small left-sided pneumothorax has further decr eased in size. Scattered bilateral subsegmental atelectasis is again seen. The cardiomediastinal silhou ette is enlarged, but stable. A right subclavian line remains in place. The bones are stable. IMPRESSION: 1. Interval removal of the r ight-sided chest tube with no definite right pneumothorax. 2. Further decrease in size of a small left pneu mothorax. 3. Persistent small right layering pleural effus ion. 4. Persistent right retrocar diac opacity that represents fluid, atelectasis, and/or consolidation. 5. Scattered subsegmental atelectasis. 6. Cardiomegaly. Chest 1view DX EXAM: XR CHEST 1 VIEW 10/03/2015 [facility] DATE: 2015-10-03 02:06:00 INDICATION: Tube placement/removal/reposition . COMPARISON: October 02, 2015. TECHNIQUE: Two frontal chest radiograph FINDINGS: A left-sided pneumothorax has somewhat decreased in size. The remainder of the exam is unchanged. The cardiomediastinal silhouette is stable. The bones are stable. IMPRESSION: Mild interval decrease in si ze of the small left pneumothorax. Otherwise unchanged exam. Chest 1view DX Chest one view, October 02, 2015 at 1357. 016 [facility] HISTORY: 75-year-old man with tube placement/rem oval/reposition. FINDINGS: Comparison is made to October 02 at 3:1 4 a.m. The left basal chest tube estrada s been removed. There is a new/increased left pneumothorax seen at the apex with the top of the left lung at the level of the posterior third rib, also extending laterally an d medially. Nurse Gandara as we ll as the [employer]ist were notified at 3:24 p.m. on October 02. The [employer] Specialist was already aware of this finding. A right pleural effusion lay ers posteriorly with a right-sided chest tube in place. The cardiomediastinal silhouette postoperative changes are stable. The mediastinal drain, left chest tube and endotracheal tube have been removed. There is a right retrocardia c opacity which may be due to a layering right pleural effusion and/or an air space opacity such as pneumonia or atelectasis. There is subsegmental atelectasis in the left lower lobe. IMPRESSION: 1. New/increased left pneumo thorax following removal of a left basal chest tube, now small to moderate in size. 2. Persistent right pleural effusion. 3. There is a right retrocar diac opacity which may be due to a layering right pleural effusion and/or an air space opacity such as pneumonia or atelectasis. 4. Left lower lobe subsegmental atelectasis. Chest 1view DX Portable ap semierect chest October 02, 2015. 03/2016 [facility] HISTORY: Tube placement. Comparison is made with yesterday. FINDINGS: Cardiomediastinal silhouette, postoperative changes and life support lines are stable. There is a right-sided pleur al effusion. The left costophrenic sulcus is sharp. No pneumothorax is identifie d, however, a supine film is suboptimal for that determination. An erect film of the chest is suggested in order to more accurately exclude a pneumothorax. There is a right retrocardia c opacity which obliterates the silhouette of the right hemidiaphragm. This opacity represents, singly or in combination, layering right-sided pleural effusion with or withou t consolidation or atelectas is of the right middle and /or right lower lobe(s).. This platelike atelectasis at the left lung base. The upper lungs are clear. CONCLUSION: No significant interval change in the appearance of the chest when compared to prior radiograph. Abdomen complete US EXAM: ABDOMINAL ULTRASOUND COMPLETE 10/01/19 16 [facility] DATE: Oct 01, 2015 09:00:00 AM . INDICATION: Abdominal distention COMPARISON: None. TECHNIQUE: Real-time graysca le and color Doppler ultrasound of the abdomen was performed. DISCUSSION: The visualized portions of t he right liver are of normal uniform echogenicity. The right lobe measures approximately 20 cm in craniocaudal dimension. There is no focal hepatic parenchymal abnormality an d no intrahepatic biliary du ctal dilation is identified. The left liver lobe is not well visualized given the presence of multiple bandages in the scan window. No ascites is identified. The main portal vein is approximately 0.8 cm in diameter and demonstrates normal hepatopetal flow. The gallbladder is not defin itively seen in the region of the gallbladder fossa. Sonographic Burdick's test is negative. The common bile duct is of normal caliber, measuring 2.4 mm in diameter. The kidneys are normal in ec hogenicity without mass, hydronephrosis or perinephric collection. The right kidney measures 12.1 cm in length. The left kidney measures 12.5 cm in length. A small nonobstruc ting echogenic stone which p osterior acoustic shadowing is noted in the lower pole of the right kidney. A 1.6 x 1.3 x 1.4 cm anechoic cyst with posterior acoustic enhancement is noted in the lower pole of the left kidney. The spleen demonstrates normal echotextu re and measures 10 cm in maximum span. Evaluation of the pancreas is limited due to ove rlying bowel gas. The visualized portion of th e aorta and IVC are unremarkable. The aorta measures 2.5 cm proximally. Urinary bladder is decompressed by Up cathete r. Small simple right pleural effusion is noted. IMPRESSION: 1. Gallbladder is not visual ized, which may be due to contracted gallbladder or prior cholecystectomy. Recommend correlation with history and if patient has not had a prior cholecystectomy, a repeat gallbladder ultrasound can be obtained. 2. Normal common bile duct of 2.4 mm. 3. Small nonobstructing stone in the lower pole of the right kidney. 4. Small 1.6 cm simple left renal cyst in the le ft lower pole. 5. Small simple right pleural effusion. Chest 1view DX Chest one view, October 01, 2015 at 1:45 a.m. 02/2016 [facility] HISTORY: 75-year-old man with abnormal chest cassia nds. FINDINGS: Comparison is made to September 30. The cardiomediastinal silhou ette is prominent but stable. Postoperative changes, life support lines and tubes are stable. There is an alveolar opacity in the right lower lobe obscuring the right hemidiaphragm which could be due to atelectasis and/or pneumonia. There is left retrocardiac subsegmental atelectasis. A small right pleural effusion is not excluded. IMPRESSION: No change. Chest 1view DX EXAM: XR CHEST 1 VIEW 09/30/2015 [facility] DATE: September 30, 2015. INDICATION: On arrival . COMPARISON: September 29, 2015. TECHNIQUE: Two portable radiographs provided for interpretation. FINDINGS: Since the prior exam, patien t undergone median sternotomy. Endotracheal tube has been placed along with bilateral chest tube and mediastinal drains. Cardiac silhouette is stable. Calcifications of the a ortic knob are noted. A hazy opacity within the right lung base they represent layering pleural fluid. IMPRESSION: 1. Interval median sternotomy with numerous line s and tubes as described. 2. Hazy opacity within the r ight lung base may represent layering pleural fluid. Chest 1view DX EXAM: XR CHEST ONE VIEW 09/29/2015 [facility] DATE: Sep 29, 2015 07:49:00 PM CLINICAL INDICATION: Abnormal chest sounds COMPARISON: NONE TECHNIQUE: AP portable chest x-ray is submitted . DISCUSSION: The lungs are w ell inflated. The costophrenic angles are sharp. Cardiomegaly is present. The ascending aorta is ectatic. Prominent pulmonary vascularity is identified. Bridging osteophytes are noted in the right lower thoracic spine. IMPRESSION: 1. Cardiomegaly with prominent pulmonary vascula ture. 2. Ectatic ascending aorta. Pulmonary Vein Chest CTA pulmonary vein mapping 09/22/2015 [facility] DATE: 09/22/2015 at 1624 HISTORY: Arrhythmia; recent history of CVA; also status post tPA. TECHNIQUE: Retrospective gat ed CT of the heart is obtained according to pulmonary vein protocol following the intravenous administration of 85 cc Omnipaque 350 contrast. Open [id number] CT axial CT is included with the 75% phase. These images are reformatted on the Kaleidoscope 3-D reconstruction system for better evaluation of the images. FINDINGS: There are 4 main pulmonary v eins. The right upper lobe and right middle lobe drain to the right superior pulmonary vein. Right lower lobe, including its superior segment drain to the right inferior pulm onary vein. The left upper l obe including the lingular segments drain to the left superior pulmonary vein. The left lower lobe including the superior segment drains to the left inferior pulmonary vein. Measurements of the pulmonary veins are as follo ws: right superior pulmonary vein 30 x 19 mm right inferior pulmonary vein 22 x 17 mm left superior pulmonary vein 27 x 23 mm left inferior pulmonary vein 24 x 15 mm The esophagus is directly po sterior to the left inferior pulmonary vein ostium. It is also indirectly hose sprayer ior to the left superior right vein ostia, but by a fat plane. There is incomplete filling of the distal aspect of the left atrial appendage, which is demonstrated throughout the cardiac cycle. A delay phases not included with this scan. This is suspicious for distal left atrial appendage thrombus. Anteroposterior measurement of the left atrium i s 6.1 cm. There is aortic root and sirisha ral annular ossification. The heart is enlarged with biatrial enlargement. Scattered subcentimeter these data lymph nodes not considered pathologically enlarged. Evaluation of the coronary arteries is limited f rom motion. There is moderate to severe stenotic disease in the proximal and mid right coronary artery. There is diffuse circumferential calcification about the mid to distal RCA, which makes evaluation difficult. Circumferential calcificatio ns are seen about the circumflex and LAD coronary arteries, which limits evaluation of these vessels. There is a moderate right pl eural effusion and trace left pleural effusion. Subsegmental atelectasis is demonstrated in the lung bases. IMPRESSION: 1. Pulmonary vein anatomy and measurements are a s above. 2. Nonfilling of the distal left atrial appendage, which is suspicious for thrombus, given a relatively well-defined area of low-attenuation in the distal left atrial appendage. 3. Moderate to severe right coronary artery disease and at least mild to moderate LAD and circumflex coronary artery disease. Evaluation is somewhat limited due to motion and diffuse calcification. Finding was relayed to Dr. Dolan at 0900 on . Chest 2 views DX Chest PA and lateral September 22, 2015 09/22/[address] [place] [address] HISTORY: Arrhythmias. Comparison is made with . FINDINGS: Cardiomediastinal silhouette is prominent but stable with a calcified left-sided aorta. There is blunting of the left dorsal costophrenic sulcus by a small left pleural effusion. The lateral c ostophrenic sulci are sharp. The lungs are clear . CONCLUSION: Left pleural effusion. Brain wo contrast MRI EXAM: MRI BRAIN WITHOUT CONTRAST. 09/20/[address] [place] [address] DATE: September 20, 2015 at 0318 hours. INDICATION: Dysarthria. COMPARISON: CT dated September 19, 2015. TECHNIQUE: Multiplanar, mult isequence MRI images of the brain was obtained without administration of intravenous contrast. DISCUSSION: There is an area of restrict ed diffusion involving the left parietal lobe with corresponding increased T2/FLAIR signal abnormality consistent with subacute infarct. No hemorrhagic transformation is identified. There are scattered increase d T2 signal abnormalities throughout the supratentorial white matter consistent with microvascular ischemic changes. There are multiple foci of susceptibility artifact includ ing the bilateral thalami, g reater on the right, and throughout both cerebral hemispheres and left cerebellar hemisphere likely representing multiple microhemorrhages likely hypertensive in etiology. The ventricles and sulci are prominent consistent diffuse volume loss. The basal cisterns are patent. Posterior fossa and fourth ventricle are otherwise unremarkable. Evidence of herniation is identifie d. The orbits and globes are unremarkable. There is mucosal thickening left maxillary sinus. Remaining paranasal sinuses are clear. No calvarial lesions are identified. IMPRESSION: 1. Subacute infarct involving the left parietal lobe white matter. 2. Multiple remote microhemo rrhages throughout both cerebral hemispheres including of thalami, greater on the right, likely hypertensive in etiology 3. Evidence of chronic micro vascular ischemic changes and diffuse cortical volume loss Chest 1view DX EXAM: CHEST 1 VIEW 09/19/2015 [facility] DATE: 2015-09-19 22:07:00 INDICATION: Altered level of consciousness TECHNIQUE: A single frontal view of the chest is interpreted. COMPARISON: None. FINDINGS: The cardiomediast inal silhouette size is moderately enlarged. Mild prominence of the interstitial marking bilaterally. The costophrenic sulci are sharp. No acute bony changes are seen. IMPRESSION: Mild interstitial pulmonary edema w ith moderate cardiomegaly. Brain wo contrast CT EXAM: CT HEAD WITHOUT CONTRAST 09/19/2015 [facility] DATE: Sep 19, 2015 09:44:36 PM INDICATION: 75 year old male patient with Headache with Dizziness and Giddiness TECHNIQUE: Noncontrast image s of the brain are obtained from the skull base to the vertex. Axial bone algorithm reconstruction images were also provided. COMPARISON: None. FINDINGS: There is diffuse mild cerebr al volume loss causing mild ex-vacuo enlargement of the ventricular system and extra-axial fluid spaces. No evidence of obstructive hydrocephalus or pathological extra-axial fluid collection is seen. Multiple scattered hypodense areas within periventricular, deep and subcortical white matter bilaterally, likely related to chronic microvascular ischemic changes. No definite evidence of cere bral edema, mass effect, midline shift is seen. There is no intracranial hemorrhage. Basal cisterns are preserved. No evidence of winifred nward herniation. Visualized paranasal sinuses are clear. Visualized mastoid air cells are clear. Visualized orbits appear grossly unremarkable. Calcified atherosclerotic ch anges are seen in bilateral cavernous internal carotid arteries. Skull vault is intact. IMPRESSION: 1. No definite evidence of l arge territorial infarct or intracranial hemorrhage. 2. Diffuse mild cerebral vol ume loss, age appropriate. Sequela of mild chronic microvascular ischemic changes as detailed above. 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 Creator:Ariel Mcintyre ate:Sep 19, 2015 21:11:52 Subject: no acute intracranial abnormality Brain/Neck Stroke EXAM: CT ANGIOGRAM OF THE HEAD 09/19/2015 [facility] Medical perfusion CTA EXAM: CT ANGIOGRAM OF THE NECK C enter EXAM: CT PERFUSION OF THE BRAIN DATE: Sep 19, 2015 09:44:36 PM CLINICAL HISTORY: 75 year old male patient with Aphasia TECHNIQUE: CT ANGIOGRAM OF THE HEAD AND NECK: Rapid acquisition spiral 1.5 mm images were obtained between the aortic arch and the cranial vertex during intravenous infusion of iodinated contrast for the purpose o f CT angiogram. 3-D CT fabricio ographic images are created using maximum intensity projection technique. The source images are also presented for interpretation. CT PERFUSION OF THE BRAIN: D ynamic images on limited area of the brain parenchyma are performed during bolus injection of 30cc iodinated contrast material. Color maps of relative cerebral blood flow, r elative cerebral blood volum e and time to peak perfusion are created on an independent workstation and submitted for interpretation along with the source image data. COMPARISON: Prior CT Scan of the head performed at the same time FINDINGS: CT ANGIOGRAM OF THE NECK: AORTIC ARCH: Left sided aort ic arch. Great vessels originate from the aortic arch in the standard configuration. Scattered calcified atherosclerotic plaques within visualized aortic arch. Origins of the great vessels appear patent without hemodynamic ally significant stenosis. CERVICAL CAROTID ARTERIES: RIGHT: Common carotid artery has a normal course without hemodynamically significant stenosis. Common carotid artery bifurc ates at level of C3. There are mild predominantly calcified atherosclerotic plaques at the carotid bifurcations without hemodynamically significant stenosis. Cervical carotid artery has a tortuous course and contour without hemodynamically significant stenosis. There is no definite evidence of vascular injury or aneurysm. LEFT: Common carotid artery has a normal course without hemodynamically significant stenosis. Common carotid artery bifurc ates at level of C4. There are mild predominantly calcified atherosclerotic plaques at the carotid bifurcations without hemodynamically significant stenosis. Cervical carotid artery has a normal course and contour without hemodynamically significant stenosis. There is no definite evidence of vascular injury or aneurysm. CERVICAL VERTEBRAL ARTERIES: Codominant vertebra l arteries. RIGHT: Originates from right subclavian artery. No hemodynamically significant stenosis at origin. It enters the vertebral foramina at level of C6. It has a normal course and normal caliber without hemodynamically significant stenosis. LEFT: Originates from left s ubclavian artery. No hemodynamically significant stenosis at origin. It enters the vertebral foramina at level of C6. It has a normal course and normal caliber without hemodynamically significant stenosis. CT ANGIOGRAM OF THE HEAD: ANTERIOR CIRCULATION: Right Internal Carotid Arter y: Petrous, Laceral, Cavernous, Clinoid, Ophthalmic and Communicating segment appear normal in caliber and contour. There are mild calcified atherosclerotic plaques within ca vernous and supraclinoid seg ments of internal carotid artery. No hemodynamically significant stenosis is present. Left Internal Carotid Artery : Petrous, Laceral, Cavernous, Clinoid, Ophthalmic and Communicating segment appear normal in caliber and contour. There are mild calcified atherosclerotic plaques within cav ernous and supraclinoid segm ents of internal carotid artery. No hemodynamically significant stenosis is present. Anterior Cerebral Arteries: Hypoplastic right A1 segment. Anterior cerebral arteries appear widely patent without hemodynamically significant stenosis. Middle Cerebral Arteries: Mi ddle cerebral arteries appear widely patent without hemodynamically significant stenosis. POSTERIOR CIRCULATION/VERTEBROBASILAR SYSTEM: Codominant vertebral arterie s. Intracranial vertebral arteries (V4 segments) appear widely patent without hemodynamically significant stenosis. Basilar artery appears widel y patent without hemodynamically significant stenosis. Visualized posterior cerebra l arteries appear widely patent without hemodynamically significant stenosis. No definite posterior communicating artery (PCOM ) is visualized bilaterally. VENOUS SYSTEM: Visualized du ral venous sinuses are patent. Venous opacification in the neck is grossly unremarkable. EXTRAVASCULAR FINDINGS: Visualized lung apices are clear. Airway is wide ly patent. Thyroid gland appears unrema rkable. No definite mass lesion is seen within neck. Craniovertebral junction is unremarkable. Alignment of the cervical spine is normal. No definite fracture or subluxation is evident. Multilevel mild degenerative changes within cervical spine, most pron ounced at C4-C5 level. No ag gressive lytic &Tand sclerotic lesion is seen within cervical spine. Please refer to detailed rep ort of the CT scan of the head for non-vascular intracranial findings CT PERFUSION: No focal perfusion mismatch defect is seen. There is symmetry of the perfusion parameters in both hemispheres. IMPRESSION: 1. No definite evidence of h emodynamically significant stenosis, major branch occlusion, vascular injury or aneurysm is identified. 2. No definite perfusion abnormality to suggest ischemia or infarct. 3. Mild calcified atheroscle rotic plaque at the carotid bifurcation and carotid siphons. All quantitative and qualita tive measurements of the carotid arteries in the neck are performed utilizing the distal internal carotid artery for reference as per standard NASCET criteria. Consultation Notes No Data Provided for This Section Discharge Summaries No Data Provided for This Section History and Physicals No Data Provided for This Section Vital Signs Vital Sign Value Date Comments Source Heart Rate 82 02/18/2017 [facility] Height 179.58 cm 02/18/2017 [facility] BMI Calculated 28.83 02/18/2017 [facility] Weight 92.983 02/18/2017 [facility] Systolic (mm Hg) 146 02/18/2017 [facility] Diastolic (mm Hg) 84 02/18/2017 [facility] Temperature Oral (F) 98.1 F 02/20/2016 [facility] BMI Calculated 26.31 02/20/2016 [facility] Weight 90.455 02/20/2016 [facility] Height 185.42 cm 02/20/2016 [facility] Systolic (mm Hg) 16 02/20/2016 [facility] Diastolic (mm Hg) 88 02/20/2016 [facility] Respitory Rate 16 02/20/2016 [facility] Heart Rate 65 02/20/2016 [facility] Height 185.42 cm 01/29/2016 [facility] Weight 90 01/29/2016 [facility] BMI Calculated 26.18 01/29/2016 [facility] Center Systolic (mm Hg) 143 01/29/2016 [facility] Diastolic (mm Hg) 75 01/29/2016 [facility] Temperature Oral (F) 97.6 F 01/29/2016 [facility] Respitory Rate 18 01/29/2016 [facility] Heart Rate 60 01/29/2016 [facility] Respitory Rate 18 01/02/2016 [facility] Center Systolic (mm Hg) 166 01/02/2016 [facility] Center Diastolic (mm Hg) 85 01/02/2016 [facility] Respitory Rate 18 01/02/2016 [facility] Center Systolic (mm Hg) 149 01/02/2016 [facility] Diastolic (mm Hg) 92 [facility]02[facility] 18 01/02/2016 [facility] Systolic (mm Hg) 152 01/02/2016 [facility] Diastolic (mm Hg) 84 01/02/2016 [facility] BMI Calculated 28.04 01/02/2016 [facility] Center Weight 88.636 01/02/2016 [facility] Height 177.8 cm 01/02/2016 [facility] Temperature Oral (F) 98.6 F 01/02/2016 [facility] Weight 85.909 11/14/2015 [facility] BMI Calculated 24.99 11/14/2015 [facility] Height 185.42 cm 11/14/2015 [facility] Respitory Rate 18 11/14/2015 [facility] Heart Rate 70 11/14/2015 [facility] Temperature Oral (F) 97.6 F 11/14/2015 [facility] Systolic (mm Hg) 115 11/14/2015 [facility] Diastolic (mm Hg) 66 11/14/2015 [facility] BMI Calculated 24.74 10/29/2015 [facility] Weight 85.056 10/29/2015 [facility] Systolic (mm Hg) 101 10/29/2015 [facility] Diastolic (mm Hg) 52 10/29/2015 [facility] Heart Rate 53 10/29/2015 [facility] Respitory Rate 16 10/29/2015 [facility] Temperature Oral (F) 97.0 F 10/29/2015 [facility] Height 185.4 cm 10/29/2015 [facility] Temperature Oral (F) 97.0 F 10/29/2015 [facility] Respitory Rate 16 10/29/2015 [facility] Heart Rate 53 10/29/2015 [facility] Systolic (mm Hg) 101 10/29/2015 [facility] Diastolic (mm Hg) 52 10/29/2015 [facility] BMI Calculated 24.89 10/29/2015 [facility] Weight 85.568 10/29/2015 [facility] Height 185.4 cm 10/29/2015 [facility] Weight 84.091 10/22/2015 [facility] BMI Calculated 24.46 10/22/2015 [facility] Center Height 185.42 cm 10/22/2015 [facility] Systolic (mm Hg) 125 10/22/2015 [facility] Center Diastolic (mm Hg) 67 10/22/2015 [facility] Heart Rate 75 10/22/2015 [facility] Temperature Oral (F) 97.6 F 10/22/2015 [facility] Respitory Rate 16 10/22/2015 [facility] Center Systolic (mm Hg) 119 10/20/2015 [facility] Center Diastolic (mm Hg) 64 10/20/2015 [facility] edical Center Respitory Rate 17 10/20/2015 [facility] Center Respitory Rate 17 10/20/2015 [facility] Center Systolic (mm Hg) 128 10/20/2015 [facility] Center Diastolic (mm Hg) 79 10/20/2015 [facility] ed[facility] Center Systolic (mm Hg) 131 10/20/2015 [facility] Diastolic (mm Hg) 71 10/20/2015 [facility] edical Center Respitory Rate 17 10/20/2015 [facility] Center Temperature Oral (F) 98.6 F 10/20/2015 [facility] Temperature Oral (F) 97.9 F 10/20/2015 [facility] Temperature Oral (F) 98.7 F 10/20/2015 [facility] Weight 101.007 10/09/2015 [facility] Heart Rate 5 10/02/2015 [facility] Heart Rate 26 10/02/2015 [facility] Heart Rate 25 10/02/2015 [facility] Systolic (mm Hg) 160 09/29/2015 [facility] Center Diastolic (mm Hg) 83 09/29/2015 [facility] ed[facility] Center Height 185.42 cm 09/29/2015 [facility] BMI Calculated 28.29 09/29/2015 [facility] Weight 97.273 09/29/2015 [facility] Temperature Oral (F) 98.7 F 09/29/2015 [facility] Heart Rate 60 09/29/2015 [facility] BMI Calculated 28.45 09/29/2015 [facility] Weight 97.818 09/29/2015 [facility] Height 185.42 cm 09/29/2015 [facility] Systolic (mm Hg) 152 09/22/2015 [facility] Diastolic (mm Hg) 81 09/22/2015 [facility] Heart Rate 62 09/22/2015 [facility] Respitory Rate 18 09/22/2015 [facility] Center Heart Rate 67 09/22/2015 [facility] Systolic (mm Hg) 151 09/22/2015 [facility] Diastolic (mm Hg) 79 [facility] Rate 18 09/22/2015 [facility] Center Systolic (mm Hg) 145 09/22/2015 [facility] Diastolic (mm Hg) 85 09/22/2015 [facility] Respitory Rate 17 09/22/2015 [facility] Center Heart Rate 68 09/20/2015 [facility] Weight 110.4 09/20/2015 [facility] BMI Calculated 32.11 09/20/2015 [facility] Height 185.42 cm 09/20/2015 [facility] [place] Temperature Oral (F) 96.7 F 09/20/2015 [facility] Weight 100 09/20/2015 [facility] BMI Calculated 29.09 09/20/2015 [facility] Height 185.42 cm 09/20/2015 [facility] Encounters Location Location Encounter Encounter Reason Attending ADM DC Stat us Source Details Type Number For Provider Date Date Visit [facility] [id number] Mario 09/20 09/23 Veronica Law /2014 [facility] [id number] Carson 09/29 09/30 [facility] Turner King /2015 [facility] Advanced Heart Failure [facility] [id number] Carson 09/29 10/20 Veronica King /2015 [facility] [id number] Stewart 10/22 10/23 [facility] Turner Kim /2015 [facility] [id number] S[facility] 10/29 [facility] Advanced Heart Failure [facility] Outpatient [id number] Carson 11/14 11/15 [facility] Advanced Heart Failure [facility] Out[facility] Diag [id number] Carson 11/14 11/15 [facility]2015 [facility] Bed[facility] [id number] [place] 01/01 01/01 [facility] King /2015 [facility] Phone [id number] 01/12 01/14 [facility] [id number] S[place] 01/28 01/29 [facility] Jyoula /2015 [facility] Advanced Heart Failure [facility] Outpatient [id number] Stewart 02/19 02/20 [facility] [facility]2015 [facility] Phone [phone] 02/23 02/25 [facility] Message /2015 [facility] for [facility] v [facility] Phone [phone] 04/14 04/16 [facility] Message /2015 [facility] Phone [phone] 10/22 10/24 [facility] Message /2016 [facility] Phone [phone] 12/21 12/23 [facility] Message /2016 [facility] [id number] Stewart 02/18 02/19 [facility] [place] /2016 [facility] Advanced Heart Failure Procedures Procedure Code Date Perfomer Comments Source Lithotripsy [id number] 09/26/1990 [facility], [facility] Fusion of joint of [id number] 09/26/1977 [facility] as cervical spine Medical with internal Center, fixation by BETTINA anterior approach [facility] Kidney - local [id number] 09/26/[facility]<sup>1</s [id number] gall stone [facility] as up> [facility] Operation<sup>2</s [id number] TARP for [facility] as up> kidneys; back [facility] Assessment and Plan Assessment and Plan Date Source Extracted from:Title: NE PCCM Consultation Note 10/30/2015 [facility] Author: Alexandro Penn MD Date: 10/31/15 Patient: CATIA VALLE Age: 75 years Sex: Male : 1940 Associated Diagnoses: None Author: Alexandro Penn MD Basic Information Admit information: Consultation : Obstructive Sleep Apnea . Source of history: Self, Spouse. Present at bedside: Family member. Referral source: Stewart Kim MD. History limitation: None. Chief Complaint Obstructive Sleep Apnea, H/o Asbestosis History of Present Illness 75 Male with PMH of Atrial Fibrillation, HTN, DM II, s/p HENNA. S/p CVA (LMCA Embolic stroke, s/p tPA no residual defects) and CHF pEF underwent mini MAZE converted to open MAZE procedure with IVC repair and CABG BUSCH -> LAD (09/30/15) presents to the clinic for f ollow up. Patient has long standing history of DEVANTE and the last PSG was done 3 years back. He has not been on CPAP. He complains of unrefreshed sleep and tiredness. He has been diagnosed with Asbestosis in 1988. No radiology studies or oathological di dies available. He denies any dyspnea or chronic cough. Family history is positive for TB/Heart disease in father and CVA in mother. He is for past 27 years. Social ETOH use. He never smoked. He has a Bachelors degree. 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 Review of Systems Constitutional: Fatigue, No fever, No chills. Eye: Negative. Ear/Nose/Mouth/Throat: Negative. Respiratory: Negative. Cardiovascular: Negative. Gastrointestinal: Negative. Genitourinary: Negative. Hematology/Lymphatics: Negative. Endocrine: Negative. Immunologic: Negative. Musculoskeletal: Negative. Integumentary: Negative. Neurologic: Negative. Psychiatric: Negative. Health Status Allergies: Allergies (1) Active Reaction NKDA None Documented Current medications: (Selected) Prescriptions Prescribed AMIODarone 200 mg oral tablet: 200 mg, 1 tab, PO, BID, 90 ta b, 3 Refill(s) Aspirin Low Dose 81 mg oral tablet: 1 tab, PO, Daily, 90 tab , 3 Refill(s) NIFEdipine 60 mg oral tablet, extended r elease: 60 mg, 1 tab, PO, Daily, 90 tab, 3 Refill(s) atorvastatin 40 mg oral tablet: 40 mg, 1 tab, PO, Bedtime, 9 0 tab, 3 Refill(s) metFORMIN 500 mg oral tablet: 500 mg, 1 tab, PO, Before Dinner, 30 tab, 0 Refill(s) nebivolol 5 mg oral tablet: 5 mg, 1 tab, PO, Daily, 90 tab, 3 Refill(s) polyethylene glycol 3350 oral powder for reconstitution: 17 gm, PO, Daily, 527 gm, 3 Refill(s) Documented Medications Documented Klor-Con M20 oral tablet, extended release: 20 mEq, 1 tab, P O, BID bumetanide 0.5 mg oral tablet: 1 mg, 2 tab, PO, BID, No qualifying data available Problem list: No qualifying data available Histories Past Medical History: Resolved CHF (congestive heart failure) ([id number]): Resolved. Diabetes ([id number]): Resolved. Atrial fibrillation (24056853): Resolved. Hypertension (94691111): Resolved. COPD (50472857): Resolved. Stroke (275968730): Resolved. Family History: High blood pressure Mother Stroke Mother Brother TB - Tuberculosis Father Procedure history: Lithotripsy ([id number]) in 1990 at 51 Years. Fusion of joint of cervical spine with i nternal fixation by anterior approach ([id number]) on 09/26/1977 at 37 Years. Kidney - local excision (784846980) in 1952 at 13 Years. Operation ([id number]). Comments: 09/19/2015 22:17 - Adina Soler RN gall stone removed Operation ([id number]). Comments: 09/19/2015 22:18 - Adina Soler RN TARP for kidneys; back surgery Social History Social and Psychosocial Habits Tobacco 10/29/2015 Use: Never smoker Exposure to Tobacco Smoke None Cigarette Smoking Last 365 Days No Reg Smoking Cessation Counseling No . Physical Examination VS/Measurements Measurements from flowsheet : Measurements 09/29/2015 16:40 Height 185.42 cm Height Collection Method Stated Weight 97.818 kg Dosing Weight Difference Percent -11.39 7 % Dosing Wt Entered is < 10% of Previous Wt Confirmed Dosing Weight Collection Method Measure d Body Surface Area 2.2446 m2 Body Mass Index 28.45 m2 , No qualifying data available Documented vital signs: Blood Press ure ( Systolic 101 mmHg, Diastolic 57 mmHg ), Pulse ( 53 beats per min ), Respiration ( 16 breaths/ min ), Oxygen saturation 99 % ( Room air ) General: Alert and oriented, No acute distress. Eye: Pupils are equal, round and reactive to light, Normal conjunctiva. HENT: Normocephalic, Oral mucosa is moist. Neck: Supple, Non-tender, No jugular venous distention. Respiratory: Lungs are clear to auscult ation, Respirations are non-labored, Breath sounds are equal, Symmetrical chest wall expansion. Cardiovascular: Normal rate, No murmur, No edema. Gastrointestinal: Soft, Non-tender, Normal bowel sounds. Musculoskeletal Normal range of motion. Normal strength. Integumentary: Warm, Dry. Neurologic: Alert, Oriented, Normal sen luciano, Normal motor function, No focal deficits. Cognition and Speech: Oriented, Speech clear and coherent, Functional cognition intact. Psychiatric: Cooperative, Appropriate mood and affect, Norm al judgment. Review / Management Results review: No qualifying data available. Laboratory Results Last 5 Days Lab Results : Laboratory 10/20/2015 04:59 Sodium Lvl 13 9 mEq/L Normal Potassium Lvl 3.4 mEq/L LOW Chloride Lvl 98 mEq/L Normal CO2 34 mEq/L HI AGAP 10.4 mEq/L Normal Creatinine Lvl 1.24 mg/dL Normal eGFR 57 mL/min/1.73m2 NA BUN 33 mg/dL HI Glucose Lvl 102 mg/dL HI Calcium Lvl 8.7 mg/dL Normal Magnesium Lvl 2.4 mg/dL Normal WBC 12.5 K/CMM HI RBC 3.15 M/CMM LOW Hgb 9.6 g/dL LOW Hct 29.3 % LOW MCV 93.0 fL Normal MCH 30.4 pg Normal MCHC 32.7 g/dL Normal RDW 17.4 % HI Platelet 303 K/CMM Normal MPV 8.1 fL Normal Segs 73.3 % Normal Lymphocytes 14.3 % LOW Monocytes 8.9 % Normal Eosinophils 2.6 % Normal Basophils 0.9 % Normal Segs-Bands # 9.2 K/CMM HI Lymphocytes # 1.8 K/CMM Normal Monocytes # 1.1 K/CMM HI Eosinophils # 0.3 K/CMM Normal Basophils # 0.1 K/CMM Normal ECHO (10/13/15) Indication: Abnormal EKG Rhythm: Atrial Fib Rhythm: Atrial Fib BP: 136/72 HR: 67 Conclusions 1) This study demonstrates normal left ventricular size and overall systolic function, moderate to severe biatrial enlargement, mitral annular calcification with trace mitral regurgitation, mild dilatation of the aortic root (4cm), aortic valve sclerosis with trace aortic regurgitation, mild tricuspid regurgitation with moderate pu lmonary hypertension, a large left pleural effusion, and plethora of the inferior vena cava. 2) When compared to an intraoperative ANDREW done on 09/30/2015, the pleural effusion is a new finding. CHEST X RAY PORTABLE (10/15/15) HISTORY: Abnormal chest sounds. Comparison is made with Richard ron Sha. FINDINGS: Cardiomediastinal silhouette and postoperative paula nges are stable. Bilateral pleural effusions are stable. Lung volumes are diminished with resultant elevation of the hemidiaphragms, spurious widening of the diameter of the heart and crowding of the basal lung markings . This produces subsegmental atelectasi s at both lung bases. The upper lungs are clear. CONCLUSION: No significant interval paula nge in the appearance of the chest when compared to prior radiograph. Impression and Plan S/p MAZE/CABG (09/30/15) Pleural Effusions Obstructive Sleep Apnea H/o Asbestosis PLAN: - Patient has post operative effusions o n X ray from 10/16/ No intervention for now. Keep euvolemic and usually the effusions resolve spontaneously. - We obtained his old PSG report and CPAP ordered. - Based on his history of Asbestosis, we will perform a Full PFT and 6MWD in 3 months. Post operative changes should have resolved by that time. - FU in 3 months with Full PFT and 6 MWD. Addendum by Alexandro Penn MD on 10/31/2015 12:01 Patient was seen and examined on 10/29/15. Delayed note comp letion. Extracted from:Title: AHF Inpatient Progress Note 10/20/2015 [facility] Author: Stewart Kim MD Date: 10/19/15 Impression and Plan 75 y/o M with a PMH significant for HTN, HLD, DM2, Chronic A.fib (previously on Xarelto but discontinued 2/2 nasal bleed) and recent embolic CVA (treated with TPA, no residual deficits) on 09/19/15 who was transferred to [facility] for evaluatio n for mini-maze procedure by Dr. King. While at the OSH patient also had a cardiac MRI concerning for CAD and underwent a right and left heart cath on 09/29/15 whic h showed obstructive CAD to the LAD. On 09/30/15 patient underwent a mini-maze procedure that was converted to an open maze procedure with IVC repair and bypass of his LAD. Intraoperatively patient receiv ed 2 units PRBC, 1750 of cell saver, and had an EBL of 3500cc. Course was complicated by hypotension and bradycardia s/p paced and HENNA and AGMA. 1 Chronic A. Fib s/p Open sternotomy Maze procedure with IVC repair: - - Patient was on Xarelto which was stopped secondary to epis taxis - Continue amiodarone and aspirin 2. s/p LAD CABG on 09/30/15: - continue statin , aspirin , and BB therapy. 3. Leukocytosis: - improving, WBC down to 11 from 14 yeaterday - blood cultures have remained negative. 4. Acute on Chronic Diastolic CHF: - Lost 7 pounds of weight yester day wi th augmented diuresis. still volume overloaded, continue bumex gtt 0.5 mg/hr. Will give dose of diuril 250 mg today. Plan to stop IV bumex at 6 pm today and change to PO. 5. LLE DVT: - ultrasound revealed: The left great sa phenous vein was noncompressible. This is consistent with superficial vein thrombosis. The left gastrocnemius vein is noncompressible with no flow on color Dopple r or spectral waveform analysis. This is consistent with kyleigh p vein thrombosis. - No Anticoagulation due to h/o epistaxis in the past. - Repeat serial venous doppler to evalau te DVT . If progression of DVT will need anticoagulation 6. Hypertension: - bystolic 5mg and nifedipine 60 mg daily. 7. GI/Nutrition: - PPI ppx 8. . DM : - Continue sliding scale insulin for tight glucose control PT/OT GI : bowel regimen and encouraged more a mbulation/ recommended limiting his pain medication use (decrease Fentanyl frequency)/added Maalox. Anticipate discharge tomorrow. Extracted from:Title: Cardiology consult note Author: Buck Crowder MD Date: 10/01/15 REASON FOR CONSULTATION: s/p coronary ar stormy bypass grafting as well as radiofrequency and partial maze procedure with bilateral pulmonary vein isolation and EP testing and closure of left atrial appendage, placement of a Medtronic as well HISTORY OF PRESENT ILLNESS: Mr. Valle is a 75-year-old man with a history of atrial fibrillation who has been off Xarelto due to significant nasal bleeding, underlying hypertension, hyperlipidemia, and type 2 diabetes. admitte d to [facility] ER after havi ng an acute embolic stroke. He was there, treated with TPA and has had resolution of his neurologic deficits. Then, the patient was transferred over [facility] for possibility of left atrial appendage mini maze procedure by Dr. King. In [place], he underwent a CT chest that showed significant ca lcified lesions in the left coronary art eries. He then underwent coronary angiograms right and left, noting complete occlusion of the RCA and was found to have coronary artery disease on left heart catheterization. He then underwent coronary artery bypass grafting as well as radiofrequency and partial maze procedure with bilateral pulmonary vein isolation and EP testing and closure of left atrial appendage, placem ent of a Medtronic as well. He had exte nsive blood loss, amounting to about 3.5 L in the OR. Postoperatively, his clinical course was complicated by hypotension, oliguria, HENNA and lactic acidosis (improving now). PAST MEDICAL HISTORY: As mentioned above, is significant for h ypertension, type 2 diabetes, recently diagnosed coronary artery disease status post bypass, atrial fibrillation status post maze procedure. ALLERGIES: No known drug allergies. CURRENT MEDICATIONS: See med reconciliation. SOCIAL HISTORY: Negative for tobacco, alcohol and drugs. FAMILY HISTORY: Negative. PAST SURGICAL HISTORY: Other surgical hi story is also significant of a right partial nephrectomy, which is in the remote past and when he was 12 years old, reportedly due to significant history of nephr olithiasis and complications of that, according to the patie nt's . REVIEW OF SYSTEMS: Could not be obtained. Patient currently intubated. PHYSICAL EXAMINATION: GENERAL: Afebrile, Intubated, arousable . VITAL SIGNS: Pulse of 74, blood pressure of 120/70, respirations 16. HEENT: Revealed positive pallor, no icterus. NECK: No jugular venous distention. KARY NGS: Coarse bilaterally. CARDIOVASCULA R: S1, S2. ABDOMEN: Soft, mild distention, nontender. EXTREMITIES: No edema. Neuro : intubated, PERRL. Labs and imaging reviewd. IMPRESSION AND PLAN: 09/30/15 patient underwent a mini-maze pro cedure that was converted to an open maze procedure with IVC repair and bypass of his LAD. Intraoperatively patient received 2 units PRBC, 1750 of cell saver, and had an EBL of 3500cc Neuro: moves all extremities and follows commands when awake Chronic A. Fib s/p Open sternotomy Maze procedure with IVC r epair - Patient has 3 mediastinal chest tubes and sternal incision closed to bandage, will monitor drainage - Patient was on Xarelto which was stopped 2/2 nasal bleed - Currently rate controlled 70's-80's - started on dopamine of 5 > c/b AFib w/ RVR >> stopped dopamine infusion>> HR improved. - If needed use dobutamine for hypotension before NE/Vaso as per Dr King. s/p LAD bypass; Hx HTN, HLD: - Hold Anti HTn - Patient's home statin restarted; Also aspirin was started Acute Kidney Injury - Likely related to ATN secondary to volume loss and hypotension. - Giving fluid now, will trend BUN/cr and keep strict I&O's - f/u HENNA work up and [facility] : as per pulm recs. GI/Nutrition: - NPO for now, NGT for enteral meds - PPI ppx DM : - Continue sliding scale insulin for tight glucose cont rol Extracted from:Title: bucky Author: Tatum Sewell Date: 09/30/15 Preop Diagnosis: atrial fibrillation,CAD,htn Postop Diagnosis: same Procedures: attempted mini maze; right t horacotomy, open maze with with left atrial appendage occlusion, 1 vessel CABG Busch to LAD, linQ Surgeon: Carson King MD Book Cleaner: Tatum Sewell PA-C (there was no qualified r esident available) Anesthesia: General Antibiotics: ancef 2g @ 09:26 and 13:24 Transfusions: 2 PRBCs IVF: 3 L crystalloid EBL: 1500cc Cell saver: 1750cc Urine Output: 1150cc Drains: 3 chest tubes (R pleural, AM, and L pleural) Complications: inferior vena cava rupture Findings: LAD coronary artery plaque Specimens: none Dictation #: Dr. Carson King Disposition: [facility] ICU, stable condition, extubated Addendum by Tatum Sewell on 09/30/2015 17:26 CPB: 224 mins Addendum by Carson King MD on 10/03/2015 08:20 The patient received 2 units of packed RBCs for acute blood loss. Plan of Care No Data Provided for This Section Social History Social History Date Source Social History TypeResponse 02/18/[address] [facility] Smoking Status Never smoker; Exposure to Tobacco Smoke None; Cigarette Smoking Last 365 Days No; Reg Smoking Cessation Counseling No Social History TypeResponse 02/20/2016 [facility] Smoking Status Failure Never smoker; Exposure to Tobacco Smoke None; Cigarette Smoking Last 365 Days No; Reg Smoking Cessation Counseling No Social History TypeResponse 11/14/2015 [facility] Smoking Status Never smoker; Exposure to Tobacco Smoke None; Cigarette Smoking Last 365 Days No; Reg Smoking Cessation Counseling No Family History No Data Provided for This Section Advance Directives No Data Provided for This Section Functional Status No Data Provided for This Section
--- OUTSIDE RECORDS SUMMARY | 2020-05-01 08:54 | XMS REPORT | Continuity of Care Document ---
:[address] [facility] t Address [address] [place] [address] Care Team Providers Name Role Phone Macy BROOKS Primary Care Physician JAYME Attending Clinician Unavailable Julio Attending Clinician Pamela Penn Attending Clinician Mandeep King Attending Clinician Pop Law Attending Clinician Julio Admitting Clinician Mandeep King Admitting Clinician Pop Law Admitting Clinician Payers Payer Name Policy Type Policy Number Effective Date Expiration Source Date HUMANA xxxxxxxxx 2018 [place] MEDICAREMANA 00:00:00 [place] MEDICARE PPO/PFFS/[facility] [id number] Problems Condition Condition Condition Status Onset Resolution Last Treating Co mments Source Name Details Category Date Date Treatment Clinician Date FOLLOW UP Diagnosis Active 2017-02-18 Memoria 3 08:41:00 l FOLLOW 00:00: [place] UP 00 Active 7 [facility] AFIB Diagnosis Active 2016-01-02 Mem oria 12-28 08:40:00 l AFIB 00:00: [place] 00 Active 12/29/2015 [facility] CCL/*MAC Diagnosis Active 2015-12-31 M emoria ANESTHESIA 12-28 16:44:00 l */CARDIOVE CCL/*MAC 00:00: He rmann RSION/DX: ANESTHESIA 00 A */CARDIOVE RSION/DX: A Active 12/29/2015 [facility] LSA Diagnosis Active 2015-10-31 Mem oria 10-23 09:10:00 l LSA 00:00: [place] 00 Active 10/23/2015 [facility] HOSPITAL Diagnosis Active 2015-10-27 M emoria FOLLOW UP 10-22 09:16:00 l HOSPITAL 00:00: Maury n FOLLOW UP 00 Active 10/22/2015 [facility] A FIB Diagnosis Active 2015-10-23 [facility] oria 09-29 21:56:00 l A FIB 00:00: [place] 00 Active 09/29/2015 [facility] INTITAL Diagnosis Active 2014-092015-10-24 Me moria CONSULT 11-23 15:13:00 l INTITAL 00:00: Turner CONSULT 00 Active 09/22/2015 [facility] POST TPA Diagnosis Active 2014-092015-09-30 M emoria 11-20 14:48:00 l POST TPA 19:00: Maury n 00 Active 09/19/2015 [facility] CVA Diagnosis Active 2014-092015-09-19 Mem oria 11-20 21:57:00 l CVA 19:00: Turner 00 Active 09/19/2015 [facility] ELLE Diagnosis Active 2014-092015-09-19 Memoria BILLING 11-20 21:54:00 l LFLT 00:00: [place] #[id number] ELLE 00 BILLING LFLT #[id number] Active 09/19/2015 [facility] Atrial Problem Resolve 2017-02-21 Adam whitney fibrillati d 00:05:27 l on Atrial Turner (disorder) fibrillati on (disorder) Resolved Problem 02/21/2017 [facility] BETTINA [facility] Congestive Problem Resolve 2017-02-21 Memoria heart d 00:05:27 l failure [place] (disorder) Congestive heart failure (disorder) Resolved Problem 02/21/2017 [facility] BETTINA Tompkins[facility] Chronic Problem Resolve 2017-02-21 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:27 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) Resolved Problem 02/21/2017 [facility], BETTINA Tompkins[facility] Diabetes Problem Resolve 2017-02-21 Me moria mellitus d 00:05:27 l (disorder) Diabetes He rmann mellitus (disorder) Resolved Problem 02/21/2017 [facility], BETTINA Tompkins[facility] Hypertensi Problem Resolve 2017-02-21 Memoria ve d 00:05:27 l disorder, Turner systemic Hypertensi arterial ve (disorder) disorder, systemic arterial (disorder) Resolved Problem 02/21/2017 [facility], BETTINA Tompkins[facility] Cerebrovas Problem Resolve 2017-02-21 Memoria cular d 00:05:27 l accident Turner (disorder) Cerebrovas cular accident (disorder) Resolved Problem 02/21/2017 [facility], BETTINA Tomp[facility] S/P ADMN Diagnosis Active 2015-09-30 M emoria TPA IN 14:48:00 l DIFF FAC S/P ADMN Herm napoleon W/N LAST TPA IN 24 HR DIFF FAC W/N LAST 24 HR Active [facility] MEDICAL Diagnosis Active 2016-01-29 Me moria SERVICES 12:31:00 l NOT MEDICAL Turner AVAILABLE SERVICES IN HOME NOT AVAILABLE IN HOME Active [facility] UNSPECIFIE Diagnosis Active 2015-10-23 Memoria D ATRIAL 21:56:00 l FIBRILLATI Maury n ON UNSPECIFIE D ATRIAL FIBRILLATI ON Active [facility] ENCNTR FOR Diagnosis Active 2017-02-18 Memoria GENERAL 08:41:00 l ADULT ENCNTR Turner MEDICAL FOR EXAM W/ GENERAL ADULT MEDICAL EXAM W/ Active [facility] Allergies, Adverse Reactions, Alerts This patient has no known allergies or adverse reactions. Social History Social Habit Start Date Stop Date Quantity Comments Source Sex Assigned At [facility] ethodist Exposure to Not sure [place] [facility] dist SARS-CoV-2 (event) Cigarettes smoked 2020 2020 Musa Amish current (pack per 00:00:00 00:00:00 day) - Reported Cigarette 2020 2020 Musa Method ist pack-years 00:00:00 00:00:00 Alcohol intake 2020 2020 Current drinker Becky on Amish 00:00:00 00:00:00 of alcohol (finding) Tobacco Comment 2020 2020 Qick about 45yrs Nayeli paul Amish 00:00:00 00:00:00 ago Alcohol Comment 2020 2020 a week Musa Bernal dayan 00:00:00 00:00:00 Smoking Status Start Date Stop Date Source Former smoker 2020 00:00:00 2020 00:00:00 Musa Blandon Social History [facility] [place] Medications Ordered Filled Start Stop Current Ordering Indication Dosage Frequency Signature Comments Components Source Medication Medication Date Date Medication? Clinician (SIG) Name Name bumetanide Yes 1 mg = 1 Mem oria 1 mg oral 5-26 tab, PO, l tablet 15:32: BID, # 180 Danette nn 00 tab, 3 Refill(s), [id number] nebivolol Yes 10 mg = 1 Mem oria 10 MG Oral 5-26 tab, PO, l Tablet 13:51: Daily Turner [Bystolic] 00 Microencaps Yes 20 mEq = 1 Memoria ulated 1-27 tab, PO, l Potassium 21:40: BID, # 180 He rmann Chloride 20 38 tab, 3 MEQ Refill(s), Extended Pharmacy: Release [id number] [Klor-Con] nebivolol 5 Yes 5 mg = 1 Me moria MG Oral 1-27 tab, PO, l Tablet 21:40: Daily, Marium Tompkins [Bystolic] 00 90 tab, 3 Refill(s), Pharmacy: [id number] atorvastati Yes 40 mg = 1 M emoria n 40 mg 1-27 tab, PO, l oral tablet 21:39: Bedtime, Marium Tompkins 42 90 tab, 3 Refill(s), Pharmacy: [id number] 24 HR Yes 60 mg = 1 Memoria Nifedipine 1-27 tab, PO, l 60 MG 21:39: Daily, Marium Tompkins Extended 41 90 tab, 3 Release Refill(s), Tablet Pharmacy: [id number] bumetanide Yes 2 mg = 4 Mem oria 0.5 mg oral 1-27 tab, PO, l tablet 21:39: BID, # 240 Danette nn 39 tab, 6 Refill(s), Pharmacy: [id number], Patient is due for follow up appointmen t Potassium 2015- Yes 20 mEq = 1 Me moria Chloride 20 7-20 tab, PO, l MEQ 21:11: BID, # 180 [place] Extended 00 tab, 3 Release Refill(s), Tablet Pharmacy: [[facility] #[id number] bumetanide Yes 2 mg = 4 Mem oria 0.5 mg oral 5-31 tab, PO, l tablet 14:03: BID, [place] 07 patient is due for follow up appointyesy t, # 240 tab, 6 Refill(s), Pharmacy: [facility] #[id number], Patient is due for follow up appointmen t bumetanide Yes 2 mg = 4 Mem oria 0.5 mg oral 4-19 tab, PO, l tablet 22:20: BID, Turner 00 patient is due for follow up appointyesy t, # 240 tab, 0 Refill(s), Pharmacy: [facility] #[id number], Patient is due for follow up appointmen t sucralfate Yes 1 gm = 1 Mem oria 1 g oral 4-08 tab, PO, l tablet 14:14: QID-Before Danette nn 00 Meals, 0 Refill(s) AMIODarone Yes 200 mg = 1 M emoria 200 mg oral 4-08 tab, PO, l tablet 14:14: Daily, 0 Turner 00 Refill(s) nebivolol 5 Yes 5 mg = 1 Me moria MG Oral 4-08 tab, PO, l Tablet 14:14: Daily, 0 [place] [Bystolic] 00 Refill(s) Sucralfate Yes 1 gm = 10 Me moria 100 MG/ML 4-08 mL, PO, l Oral 14:14: QID-Before Turner Suspension 00 Meals, 0 [Carafate] Refill(s) bumetanide Yes 1 mg = 2 Mem oria 0.5 mg oral 4-08 tab, PO, l tablet 14:14: BID, 0 [place] 00 Refill(s) bumetanide Yes 1 mg = 2 Mem oria 0.5 mg oral 2-03 tab, PO, l tablet 17:41: BID Turner 00 Potassium Yes 20 mEq = 1 Me moria Chloride 20 2-03 tab, PO, l MEQ 17:41: BID Turner Extended 00 Release Tablet [Klor-Con] Metolazone Yes 2.5 mg = 1 M emoria 2.5 MG Oral 1-25 tab, PO, l Tablet 20:53: Q- and Turner 00 Th, # 30 tab, 1 Refill(s) polyethylen Yes 17 gm, PO, Memoria e glycol 1-25 Daily, # l 3350 oral 20:44: 527 gm, 3 Her contreras powder for 00 Refill(s) reconstitut ion senna 8.6 Yes 8.6 mg = 1 Me moria mg oral 1-25 tab, PO, l tablet 20:44: Q12H, PRN Maury n 00 Constipati on, # 30 tab, 3 Refill(s) 24 HR Yes 60 mg = 1 Memoria Nifedipine 1-25 tab, PO, l 60 MG 20:44: Daily, # Turner Extended 00 90 tab, 3 Release Refill(s) Tablet nebivolol 5 Yes 5 mg = 1 Me moria mg oral 1-25 tab, PO, l tablet 20:44: Daily, # Turner 00 90 tab, 3 Refill(s) Metolazone No 2.5 mg = 1 M emoria 2.5 MG Oral 1-25 tab, PO, l Tablet 20:44: Q-M-W-, # Danette nn 00 90 tab, 3 Refill(s) bumetanide Yes 2 mg = 4 Mem oria 0.5 mg oral 1-25 tab, PO, l tablet 20:44: BID, # 180 Danette nn 00 tab, 1 Refill(s) atorvastati Yes 40 mg = 1 M emoria n 40 mg 1-25 tab, PO, l oral tablet 20:44: Bedtime, # Turner 00 90 tab, 3 Refill(s) Aspirin Low Yes = 1 tab, Me moria Dose 81 mg 1-25 PO, Daily, l oral tablet 20:44: # 90 tab, H ermann 00 3 Refill(s) AMIODarone Yes 200 mg = 1 M emoria 200 mg oral 1-25 tab, PO, l tablet 20:44: BID, # 90 Maury n 00 tab, 3 Refill(s) bumetanide No 2 mg = 4 Mem oria 0.5 mg oral 1-25 tab, PO, l tablet 16:24: BID, 0 [place] 00 Refill(s) AMIODarone No 200 mg = 1 M emoria 200 mg oral 1-25 tab, PO, l tablet 16:24: BID, 0 Turner 00 Refill(s) potassium No 10 mEq = Adam whitney chloride 1-25 50 mL, l 16:24: IVPB, PRN, Turner 00 PRN Abnormal Lab Result, 0 Refill(s) nebivolol 5 No 5 mg = 1 Me moria mg oral 1-25 tab, PO, l tablet 16:24: Daily, 0 [place] 00 Refill(s) 24 HR No 60 mg = 1 Memoria Nifedipine 1-25 tab, PO, l 60 MG 16:24: Daily, 0 Turner Extended 00 Refill(s) Release Tablet Metolazone No 2.5 mg = 1 M emoria 2.5 MG Oral 1-25 tab, PO, l Tablet 16:24: Q-M-W-F, 0 Danette nn 00 Refill(s) Metolazone No Notes: Memor ia 2.5 MG Oral 1-25 (Same as: l Tablet 15:00: Zaroxolyn) Danette nn 00 Bumex No Notes: Memoria 1-25 (Same As: l 13:00: Bumex) [place] 00 Diuril No Notes: Memoria 1-24 (Same As: l 16:33: Diuril Sodium) Diuril No 250 mg, Memoria -24 Route: PO, l 00:30: ONCE, [place] 00 Dosing Weight 101.007, kg, Start date: 10/18/15 18:30:00, Stop date: 10/18/15 18:30:00 Diuril No Notes: Memoria Sodium + 1-24 (Same As: l Sodium 00:00: Diuril Turner Chloride 00 Sodium) 0.9% IV 50 mL Potassium No Notes: Memori a Chloride 20 1-23 (Same as: l MEQ 23:00: K-Dur 20) [place] Extended 00 "Do Not Release Crush" Tablet With food and full glass of water Diuril No Notes: Memoria 1-23 (Same As: l 16:46: Diuril Turner 00 Sodium) bumetanide No Notes: Memor ia 10 mg -22 (Same as: l 22:30: Bumex) Turner 00 Venofer No Notes: Memoria 1-19 Each 5ml l 22:00: contains [place] 100mg elemental iron. Mix with NS (Same as:Venofer ) Administer IV only. MEDICATION WASTE Product Size: 100 mg Product Wasted: ___ mg Aspirin No Notes: Do Memor ia -19 not crush l 15:00: or chew. Turner (Same As: Ecotrin) heparin No Notes: Memoria 1-18 porcine l 20:00: heparin [place] 00 potassium No Notes: Memori a phosphate + 1-18 (Same as: l Sodium 17:41: K [place] Chloride 00 Phosphate. 0.9% IV 250 ) 1 mMol mL phoshate has 1.47 mEq potassium Infuse over 4 hours potassium No Notes: Memori a phosphate-s 1-18 (Same as: l odium 17:41: Neutra-Stephanie Maury n phosphate 00 s) Each 250 mg-278 1.25 gm mg-164 mg pkt has oral powder 250mg phosphorou s. Mix w/2.5oz water and stir. potassium No Notes: Memori a chloride 1-18 (Same as: l 17:41: KCL) Turner 00 Infuse over 2 hours. Magnesium No 2 gm, 50 Adam whitney Sulfate 1-18 mL, Route: l 17:41: IVPB, Drug Turner form: INJ, PRN, Dosing Weight 101.007, kg, PRN Abnormal Lab Result, For NON-ICU Patients Only., Start date: 10/13/15 11:41:00, Duration: 30 day, Stop date: 11/12/15 11:40:00 sodium 2016- No 30 mmol, Memoria phosphate + 1-18 10 mL, l Sodium 17:41: Route: [place] Chloride 00 IVPB, PRN, 0.9% IV 250 Dosing mL Weight 101.007, kg, PRN Abnormal Lab Result, For NON-ICU Patients Only., Start date: 10/13/15 11:41:00, Duration: 30 day, Stop date: 11/12/15 11:40:00 Calcium No 2 gm, 20 Memori a Gluconate 1-18 mL, Route: l 17:41: IVPB, PRN, [place] 00 Dosing Weight 101.007, kg, PRN Abnormal Lab Result, For NON-ICU Patients Only., Start date: 10/13/15 11:41:00, Duration: 30 day, Stop date: 11/12/15 11:40:00 Magnesium No Notes: Memori a Oxide -18 (Same as: l 17:41: Mag-Ox Turner 00 400) Magnesium oxide 080de=812q g elemental magnesium Dose=____m g magnesium oxide (___mg elemental magnesium) bumetanide No Notes: Memor ia 10 mg -18 (Same as: l 17:40: Bumex) [place] 00 Trazodone No Notes: Memori a -17 (Same As: l 12:53: Desyrel) [place] 00 Melatonin 3 No Notes: Adam whitney MG Extended 17 (Same as: l Release 06:51: Melatonin) Herm napoleon Tablet 00 Lasix No Notes: Memoria 1-16 (Same as: l 15:00: Lasix) [place] 00 MEDICATION WASTE Product Size: 40 mg Product Wasted: ___ mg Maalox No Notes: Memoria Advanced 1-16 (aluminum l Regular 15:00: hydroxide- Herm napoleon Strength 00 magnesium SUSP hyd-simeth icone 200-200-20 mg/5ml 30 ml ud ALEISHA) Fentanyl No Notes: Memoria 1-16 (Same as: l 12:57: Sublimaze) Preservat javi free. Lasix No Notes: Memoria 1-14 (Same as: l 19:00: Lasix) MEDICATION WASTE Product Size: 40 mg Product Wasted: ___ mg Lasix No Notes: Memoria 1-13 (Same as: l 15:00: Lasix) MEDICATION WASTE Product Size: 40 mg Product Wasted: _0__ mg Miralax No Notes: Memoria 1-13 Dissolve l 15:00: in 8 oz of water or juice. (Same as: Miralax) Bystolic No Notes: Memoria 1-13 (same as: l 15:00: Bystolic) Potassium No Notes: Memori a Chloride 20 1-13 (Same as: l MEQ 15:00: K-Dur 20) "Do Not Release Crush" Tablet With food and full glass of water 24 HR No Notes: Memoria Nifedipine 1-13 (Same as: l 60 MG 15:00: Adalat CC, Maury n Extended Procardia Release XL) Give Tablet on empty stomach. Take 1 hour before or 2 hours after meal; "Avoid grapefruit and grapefruit juice". Do not crush molasses No Notes: Memoria 1-13 (Same l 14:32: as:Molasse s) Simethicone No Notes: Adam whitney 1-12 (Same as: l 23:31: Mylicon) Dulcolax No Notes: Memoria Laxative 1-12 (Same As: l 19:08: Dulcolax, Bisco-Lax) Bystolic No Notes: Memoria 1-12 (same as: l 19:07: Bystolic) Magnesium No Notes: Memori a Oxide -12 (Same as: l 12:45: Mag-Ox 400) Magnesium oxide 340ia=805h g elemental magnesium Dose=____m g magnesium oxide (___mg elemental magnesium) potassium No Notes: Memori a chloride -12 (Same as: l 12:44: K-Dur 20) "Do Not Crush" With food and full glass of water Calcium No Notes: Memoria Carbonate 12 (Same As: l 12:44: Tums) Calcium Carbonate 500 mg = 200 mg elemental calcium Dose = mg calcium carbonate ( mg elemental calcium) Lasix No Notes: Memoria 1-11 (Same as: l 23:00: Lasix) May cause GI upset. Give with food or milk. Hydralazine No Notes: Adam whitney 11 (Same as: l 04:56: Apresoline ) Push over 5 minutes Dulcolax No Notes: Memoria Laxative 10-04 (Same As: l 15:11: Dulcolax, Bisco-Lax) potassium No Notes: Memori a chloride 10-04 (Same as: l 12:46: K-Dur 20) "Do Not Crush" With food and full glass of water Simethicone No Notes: Adam whitney 10-04 (Same as: l 08:54: Mylicon) Amiodarone No Notes: Memor ia -08 (Same as: l 23:00: Cordarone) carvedilol No Notes: Memor ia 1-08 Give with l 17:32: food. (Same As: Coreg) Acetaminoph No Notes: Do M emoria en 325 MG / 10-02 not exceed l Hydrocodone 19:35: 4gm/day of Bitartrate 00 acetaminop 10 MG Oral hen. Tablet (Same as: [[place] 10/325] 325/10) senna 8.6 No Notes: Memori a mg oral 10-02 (Same as: l tablet 18:29: Senokot) sodium No 50 ml, Memoria bicarbonate 10-02 Route: l 8.4% 00:27: IVP, Dosing Weight 97.273, kg, ONCE, Start date: 10/01/15 18:27:00, Stop date: 10/01/15 18:27:00 Dopamine No Notes: Memoria - (Same as: l 20:57: Intropin) [place] Administer by either central venous catheter or peripheral ly-inserte d central catheter (PICC) line. Final conc = 3.2 mg/ml. Premix solution. Sodium No 500 mL, Memoria Chloride 10-01 1000 l 0.154 19:41: ml/hr, Turner MEQ/ML 00 Infuse Injectable Over: 0.5 Solution hr, Route: IV, 500, Drug form: INJ, ONCE, Priority: STAT, Dosing Weight 97.273 kg, Start date: 10/01/15 13:41:00, Duration: 1 doses or times, Stop date: 10/01/15 13:41:00 Dobutamine No Notes: Memor ia 10-01 (Same as: l 16:25: Dobutrex) Turner Final conc = 4 mg/ml. Premix solution. Protect from light. pantoprazol No Notes: For Memoria e 10-01 IV push l 15:00: reconstitu [place] 00 te with 10 ml 0.9% sodium chloride and push over 2 minutes. (Same as: Protonix) Docusate No Notes: Memoria Sodium 100 10-01 (Same as: l MG Oral 15:00: Colace) Turner Capsule (Do Not [Colace] Crush) Aspirin 325 No Notes: Adam whitney MG Enteric 10-01 Take with l Coated 15:00: food. Turner Tablet 00 Aspirin 300 No Notes: Adam whitney MG Rectal 10-01 Refrigerat l Suppository 15:00: e. Maury n 00 Dopamine No Notes: Memoria 1-06 (Same as: l 14:41: Intropin) [place] 00 Administer by either central venous catheter or peripheral ly-inserte d central catheter (PICC) line. Final conc = 3.2 mg/ml. Premix solution. sodium No Notes: Memoria bicarbonate 10-01 (sodium l 8.4% 10:38: bicarb Turner 00 8.4% (1 mEq/ml) 50 ml VL) Sodium No 1,000 mL, Memori a Chloride 10-01 1,000 l 0.154 07:52: ml/hr, [place] MEQ/ML 00 Infuse Injectable Over: 1 Solution hr, Route: IV, 1,000, Drug form: INJ, ONCE, Priority: STAT, Dosing Weight 97.273 kg, Start date: 10/01/15 1:52:00, Duration: 1 doses or times, Stop date: 10/01/15 1:52:00 sodium No Notes: Memoria bicarbonate 10-01 (sodium l 8.4% 06:57: bicarb Turner 00 8.4% (1 mEq/ml) 50 ml VL) Dexmedetomi No Notes: Adam whitney dine 10-01 (Same as: l 05:16: Precedex) calcium No 3,000 mg, Memor ia gluconate + 10-01 30 mL, l Sodium 04:41: Route: Turner Chloride 00 IVPB, 0.9% IV 100 ONCE, mL Start date: 09/30/15 22:41:00, Stop date: 09/30/15 22:41:00 ceFAZolin No Notes: Memori a (SCIP) 10-01 Same as: l 03:30: Ancef [place] sodium No Notes: Memoria bicarbonate 10-01 (sodium l 8.4% 03:09: bicarb Turner 00 8.4% (1 mEq/ml) 50 ml VL) atorvastati No Notes: Adam whitney n 10-01 (Same as: l 03:00: Lipitor) Vancomycin No 2000 mg: Me moria 6.67 MG/ML 10-01 infuse l Injectable 03:00: over 2.5 Her contreras Solution 00 hours MEDICATION WASTE Product Size: 1000 mg Product Wasted: ___ mg Sodium No 1,000 mL, Memori a Chloride 10-01 1,000 l 0.154 01:47: ml/hr, [place] MEQ/ML 00 Infuse Injectable Over: 1 Solution hr, Route: IV, 1,000, Drug form: INJ, ONCE, Priority: STAT, Dosing Weight 97.273 kg, Start date: 09/30/15 19:47:00, Duration: 1 doses or times, Stop date: 09/30/15 19:47:00 Neutra-Phos 2015-0 No Notes: Adam whitney 1-06 (Same as: l 01:44: Neutra-Stephanie [place] 00 s) Each 1.25 gm pkt has 250mg phosphorou s. Mix w/2.5oz water and stir. Magnesium 2016 No 2 gm, 50 Adam whitney Sulfate 1-06 mL, Route: l 01:44: IVPB, Drug Turner 00 form: INJ, PRN, Dosing Weight 97.273, kg, PRN Abnormal Lab Result, Start date: 09/30/15 19:44:00, Duration: 30 day, Stop date: 10/30/15 19:43:00, FOR ICU USE ONLY sodium No 15 mmol, 5 Memor ia phosphate + 1-06 mL, Route: l Sodium 01:44: IVPB, PRN, Danette nn Chloride 00 Dosing 0.9% IV 250 Weight mL 97.273, kg, PRN Abnormal Lab Result, Start date: 09/30/15 19:44:00, Duration: 30 day, Stop date: 10/30/15 19:43:00, FOR ICU USE ONLY potassium No Notes: Memori a chloride -06 (Same as: l 01:44: Potassium Turner 00 Chloride) Calcium No 1 gm, 10 Memori a Gluconate 1-06 mL, Route: l 01:44: IVPB, PRN, Turner 00 Dosing Weight 97.273, kg, PRN Abnormal Lab Result, Start date: 09/30/15 19:44:00, Duration: 30 day, Stop date: 10/30/15 19:43:00, FOR ICU USE ONLY Magnesium No Notes: Memori a Oxide 1-06 (Same as: l 01:44: Mag-Ox [place] 00 400) Magnesium oxide 202tl=368s g elemental magnesium Dose=____m g magnesium oxide (___mg elemental magnesium) Calcium No Notes: Memoria Carbonate -06 (Same As: l 500 MG 01:44: Tums) [place] Chewable 00 Calcium Tablet Carbonate 500 mg = 200 mg elemental calcium Dose = mg calcium carbonate ( mg elemental calcium) potassium No Notes: Memori a phosphate + -06 (Same as: l Sodium 01:44: K [place] Chloride 00 Phosphate. 0.9% IV 250 ) 1 mMol mL phoshate has 1.47 mEq potassium Infuse over 4 hours Glucagon No 1 mg, Memoria 10-01 Route: IM, l 01:43: Drug form: Turner 00 PDR/INJ, PRN, Dosing Weight 97.273, kg, PRN Blood Glucose Results, Start date: 09/30/15 19:43:00, Duration: 30 day, Stop date: 10/30/15 19:42:00 Insulin No 60 Memoria regular -06 units) l 01:43: Stable for Turner 00 28 days at room temperatur e Expires in days from ____Date Dextrose No 12.5 gm, Memor ia 50% Syringe 10-01 25 mL, l 01:43: Route: [place] 00 IVP, Drug Form: INJ, Dosing Weight 97.273, kg, PRN, PRN Blood Glucose Results, Start date: 09/30/15 19:43:00, Duration: 30 day, Stop date: 10/30/15 19:42:00 Isolyte S No Notes: Memori a PH 7.4 -06 (Same as: l 1,000 mL 00:34: Isolyte S napoleon PH 7.4) Fentanyl No 1,000 Memoria 1 microgram, l 00:34: 20 mL, [place] Rate: Titrate, Start Dose: 50 microgram/ hr, Titration: 25 microgram/ hour every 15 minutes, Goal(s): RASS (0) to (-2), Max Dose: 300 microgram/ hr, Route: IV, Dosing Weight 97.273 kg, Total Volume: 20, Start date: 09/30/15 18:34:... Fentanyl No Notes: Memoria 1-06 Concentrat l 00:00: ion is 20 [place] 00 micrograms /ml Naloxone No Notes: Memoria -05 Same as l 23:40: Narcan Ondansetron No Notes: Adam whitney 0.8 MG/ML 09-30 (Same as: l Oral 23:40: Zofran) [place] Solution 00 [Zofran] Acetaminoph No Notes: Do M emoria en 325 MG / -05 not exceed l Hydrocodone 23:40: 4gm/day of [place] Bitartrate 00 acetaminop 10 MG Oral hen. Tablet (Same as: [place] 325/10) Fentanyl No Notes: Memoria 05 (Same as: l 23:40: Sublimaze) Turner Preservat javi free. Acetaminoph No Notes: Do M emoria en 05 not exceed l 23:40: 4 gm/day. Turner (Same as: Tylenol) protamine No Route: IV, Me moria (ANES) 09-30 Drug form: l 22:31: INJ, ONCE, [place] 00 Stop date: 09/30/15 16:31:00 DOPamine No Route: IV, Mem oria (ANES) 09-30 Drug form: l (ANES) 22:10: INJ, Start Danette nn date: 09/30/15 16:10:00, Stop date: 09/30/15 17:10:00 acetaminoph No Route: IV, Memoria en (ANES) 09-30 Drug form: l (ANES) 21:40: INJ, Start Danette nn date: 09/30/15 15:40:00, Stop date: 09/30/15 16:40:00 Ancef No 1 gm, Memoria 05 Route: l 19:24: IVPB, [place] 00 ONCE, Dosing Weight 97.273, kg, Start date: 09/30/15 13:24:00, Duration: 1 doses or times, Stop date: 09/30/15 13:24:00, Surgical Prophylaxi s Only; For patients < 120 kg midazolam No Route: IV, Me moria (ANES) 05 Drug form: l 18:10: SOLN, [place] 00 ONCE, Stop date: 09/30/15 12:10:00 heparin No Route: IV, Adam whitney (ANES) 1- Drug form: l 18:00: INJ, ONCE, Turner Stop date: 09/30/15 12:00:00 niCARdipine No Route: IV, Memoria (ANES) + 1-05 Drug form: l sodium 18:00: INJ, ONCE, Danette nn chloride Stop date: (ANES) 09/30/15 (ANES) 12:00:00 tranexamic No Route: IV, M emoria acid (ANES) 1- Drug form: l 17:25: INJ, ONCE, Turner Stop date: 09/30/15 11:25:00 ceFAZolin No Route: IV, Me moria (ANES) 1 Drug form: l 17:25: INJ, ONCE, [place] Stop date: 09/30/15 11:25:00 lidocaine No Route: IV, Me moria (ANES) 105 Drug form: l 17:05: INJ, ONCE, [place] Stop date: 09/30/15 11:05:00 propofol No Route: IV, Mem oria (ANES) 1 Drug form: l 16:55: INJ, ONCE, Turner Stop date: 09/30/15 10:55:00 rocuronium No Route: IV, M emoria (ANES) 1-05 Drug form: l 16:10: INJ, ONCE, [place] 00 Stop date: 09/30/15 10:10:00 fentaNYL No Route: IV, Mem oria (ANES) 1-05 Drug form: l 16:05: INJ, ONCE, [place] Stop date: 09/30/15 10:05:00 cefepime No Route: IV, Mem oria (ANES) 1-05 Drug form: l 16:00: INJ, ONCE, [place] Stop date: 09/30/15 10:00:00 dexmedetomi No Route: IV, Memoria dine (ANES) 105 Drug form: l (ANES) 15:48: INJ, Start Danette nn 00 date: 09/30/15 9:48:00, Stop date: 09/30/15 10:48:00 ropivacaine No Notes: Adam whitney 400 mL 1-05 Final l 15:47: concentrat [place] 00 ion: Ropivacain e 0.2% 400 ml ropivacaine No Notes: Adam whitney 400 mL 1-05 Final l 15:46: concentrat [place] 00 ion: Ropivacain e 0.2% 400 ml Ancef No 2 gm, Memoria 1-05 Route: l 15:26: IVPB, [place] 00 ONCE, Dosing Weight 97.273, kg, Start date: 09/30/15 9:26:00, Duration: 1 doses or times, Stop date: 09/30/15 9:26:00, Surgical Prophylaxi s Only; For patients < 120 kg pantoprazol No Notes: Adam whitney e 1-05 Tablet l 15:00: should not Turner 00 be chewed or crushed. (Same as: Protonix) 24 HR No Notes: [facility] Nifedipine 1-05 (Same l 90 MG 15:00: as:Adalat Turner Extended 00 CC, Release Procardia Tablet XL) Give on empty stomach. Take 1 hour before or 2 hours after meal; "Avoid grapefruit and grapefruit juice". Do not crush Losartan No Notes: [facility] 1-05 (Same as: l 15:00: Cozaar) Turner Aspirin No Notes: [facility]oria 1-05 Take with l 15:00: food. [place] PlasmaLyte No Route: IV, M emoria A PH-7.4 1-05 Total l (ANES) 14:20: Volume: Turner (ANES) 00 1,000, Start date: 09/30/15 8:20:00, Stop date: 09/30/15 9:20:00 Clonidine No Notes: Memori a Hydrochlori 1-05 (Same As: l de 0.1 MG 04:00: Catapres) Her contreras Oral Tablet 00 atorvastati No Notes: Adam whitney n 1-05 (Same As: l 03:00: Lipitor) [place] Magnesium No 2 gm, 50 Adam whitney Sulfate 1-05 mL, Route: l 01:19: IVPB, Drug Turner 00 form: INJ, PRN, Dosing Weight 97.273, kg, PRN Abnormal Lab Result, For NON-ICU Patients Only., Start date: 09/29/15 19:19:00, Duration: 30 day, Stop date: 10/29/15 19:18:00 Calcium 2016-0 No 3 gm, 30 Memori a Gluconate 1-05 mL, Route: l 01:19: IVPB, Drug Turner 00 form: INJ, PRN, Dosing Weight 97.273, kg, PRN Abnormal Lab Result, For NON-ICU Patients Only., Start date: 09/29/15 19:19:00, Duration: 30 day, Stop date: 10/29/15 19:18:00 Magnesium 2015- No Notes: Memori a Oxide 1-05 (Same as: l :19: Mag-Ox [place] 00 400) Magnesium oxide 387np=506k g elemental magnesium Dose=____m g magnesium oxide (___mg elemental magnesium) potassium No Notes: Memori a phosphate + 1-05 (Same as: l Sodium :19: K [place] Chloride 00 Phosphate. 0.9% IV 250 ) 1 mMol mL phoshate has 1.47 mEq potassium Infuse over 4 hours sodium No 15 mmol, 5 Memor ia phosphate + 1-05 mL, Route: l Sodium 01:19: IVPB, PRN, Danette nn Chloride 00 Dosing 0.9% IV 250 Weight mL 97.273, kg, PRN Abnormal Lab Result, For NON-ICU Patients Only., Start date: 09/29/15 19:19:00, Duration: 30 day, Stop date: 10/29/15 19:18:00 potassium No Notes: Memori a chloride 1-05 (Same as: l :19: KCL) [place] 00 Infuse over 2 hours. potassium No Notes: Memori a phosphate-s 1-05 (Same as: l odium 01:19: Neutra-Stephanie Maury n phosphate 00 s) Each 250 mg-278 1.25 gm mg-164 mg pkt has oral powder 250mg phosphorou s. Mix w/2.5oz water and stir. Insulin No 60 [facility]oria regular 1-05 units) l 01:19: Stable for Turner 00 28 days at room temperatur e Expires in days from ____Date Acetaminoph No Notes: Adam whitney en 325 MG / - (Same as: l Hydrocodone 01:19: [place] nn Bitartrate 00 325/5) Do 5 MG Oral not exceed Tablet 4gm/day of acetaminop hen. Ondansetron No Notes: Adam whitney 09-30 (Same as: l 01:19: Zofran) Turner 00 MEDICATION WASTE Product Size: 4 mg Product Wasted: ___ mg Sodium No 250 mL, [facility] Chloride 09-29 250 ml/hr, l 0.154 22:49: Infuse [place] MEQ/ML 00 Over: 1 Injectable hr, Route: Solution IV, 250, Drug form: INJ, ONCE, Priority: Routine, Dosing Weight 97.818 kg, Start date: 09/29/15 16:49:00, Duration: 1 doses or times, Stop date: 09/29/15 16:49:00 Sodium No 250 mL, [facility] Chloride 09-29 Rate: On l 0.9% 21:28: call for [place] (titrate) 00 use with 250 mL blood product administra tion, Dosing Weight 110.4, kg, Route: IV, Total Volume: 250, Start Date: 09/29/15 15:28:00, Duration: 30 day, Stop date: 10/29/15 15:27:00, Replace Every: 24 hr Lyrica No Notes: [facility] 1-04 (Same as: l 21:28: Lyrica) [place] Lyrica No Notes: [facility] 1-04 (Same as: l 12:00: Lyrica) Turner Metformin 2014-09 Yes 500 mg = 1 Me moria hydrochlori 2-30 tab, PO, l de 500 MG 22:56: Before Maury n Oral Tablet 00 Dinner, # 30 tab, 0 Refill(s) Iohexol 2014-09 No Notes: [facility] 2-28 (same l 21:33: as:Omnipaq [place] 00 ue 350). atorvastati 2014-09 Yes 20 mg = 1 M emoria n 20 mg -28 tab, PO, l oral tablet 19:31: Bedtime, # 00 30 tab, 2 Refill(s) Physical 2014-09 Yes See [facility] Therapy 11-23 Instructio l 18:43: ns, MISC, ONCALL, Evaluate and Treat _3__ times per week for __10__ weeks, # 30 unit, 0 Refill(s) Potassium 2014-09 No 40 mEq, 2 Mem oria Chloride 20 2-28 tab, l MEQ 13:35: Route: PO, Turner Extended 00 Drug form: Release ERTAB, Tablet ONCE, Dosing Weight 110.4, kg, Start date: 09/22/15 7:35:00, Stop date: 09/22/15 7:35:00 Potassium 2014-09 No 40 mEq, 30 Me moria Chloride 2-28 mL, Route: l 1.33 MEQ/ML 13:35: PO, Drug He rm Oral form: LIQ, Solution ONCE, Dosing Weight 110.4, kg, Start date: 09/22/15 7:35:00, Stop date: 09/22/15 7:35:00 potassium 2014-09 No Notes: Memori a chloride 2-27 (Same as: l 23:00: K-Dur 20) "Do Not Crush" With food and full glass of water Clonidine 2014-09 No Notes: Memori a Hydrochlori 2-27 (Same As: l de 0.1 MG 21:00: Catapres) Her contreras Oral Tablet 00 torsemide 2014-09 No Notes: Memori a 2-27 (Same As: l 19:45: Demadex) 00 24 HR 2014-09 No Notes: [facility] Nifedipine 2-27 (Same l 90 MG 15:00: as:Adalat [place] Extended 00 CC, Release Procardia Tablet XL) Give on empty stomach. Take 1 hour before or 2 hours after meal; "Avoid grapefruit and grapefruit juice". Do not crush Labetalol 2014-09 No 10 mg, 2 Adam whitney 2-27 mL, Route: l 14:55: IVP, Drug form: INJ, Q15Min, Dosing Weight 110.4, kg, PRN Hypertensi on, Start date: 09/21/15 8:55:00, Duration: 30 day, Stop date: 10/21/15 8:54:00 Hydralazine 2014-09 No Notes: Adam whitney 2-27 (Same as: l 14:55: Apresoline ) Push over 5 minutes Potassium 2014-09 No Notes: Memori a Chloride 2-27 (Same as: l 1.33 MEQ/ML 13:29: Potassium H Chloride) Solution Losartan 2014-09 No Notes: [facility]oria 2-27 (Same as: l 10:11: Cozaar) [place] 00 Bystolic 2014-09 No Notes: [facility] 2-27 (same as: l 10:10: olic) 24 HR 2014-09 No 90 mg, 1 [facility]oria Nifedipine 2-27 tab, l 90 MG 10:09: Route: PO, Maury n Extended 00 Drug form: Release ERTAB, Tablet Daily, Dosing Weight 110.4, kg, Priority: NOW, Start date: 09/21/15 4:09:00, Duration: 30 day, Stop date: 10/20/15 9:00:00 heparin 2014-09 No Notes: [facility] 2-27 porcine l 06:00: heparin Aspirin 2014-09 No Notes: [facility]oria 2-27 Take with l 03:44: food. 00 torsemide 2014-09 Yes 20 mg = 1 Mem oria 20 mg oral 2-27 tab, PO, l tablet 03:07: Daily, # Turner 00 30 tab, 1 Refill(s) nebivolol 2014-09 Yes 20 mg = 2 Mem oria 10 MG Oral 2-27 tab, PO, l Tablet 03:07: Daily, # [place] [Bystolic] 00 60 tab, 0 Refill(s) 24 HR 2014-09 Yes 90 mg = 1 Memoria Nifedipine 2-27 tab, PO, l 90 MG 03:07: Daily, # Turner Extended 00 30 tab, 0 Release Refill(s) Tablet Potassium 2014-09 Yes 20 mEq = 1 Me moria Chloride 20 2-27 tab, PO, l MEQ 03:07: BID, # 60 Turner Extended 00 tab, 0 Release Refill(s) Tablet [Klor-Con] simvastatin 2014-09 No 40 mg = 1 M emoria 40 mg oral 2-27 tab, PO, l tablet 03:07: Bedtime, # Danette nn 00 90 tab, 1 Refill(s) Aspirin Low 2014-09 Yes = 1 tab, Me moria Dose 81 mg 2-27 PO, Daily, l oral tablet 03:07: # 30 tab, H ermann 00 1 Refill(s) atorvastati 2014-09 No Notes: Adam whitney n 2-27 (Same As: l 03:00: Lipitor) Clonidine 2014-09 Yes 0.1 mg = 1 Me moria Hydrochlori 2-26 tab, PO, l de 0.1 MG 18:12: TID, 0 Maury n Oral Tablet 00 Refill(s) losartan 2014-09 Yes 100 mg = 1 Mem oria 100 mg oral 2-26 tab, PO, l tablet 18:12: Daily, # Turner 00 30 tab, 0 Refill(s) Metformin 2014-09 No 500 mg = 1 Me moria hydrochlori 2-26 tab, PO, l de 500 MG 18:12: Before Maury n Oral Tablet 00 Dinner, # 30 tab, 0 Refill(s) clopidogrel 2014-09 No 75 mg = 1 M emoria 75 mg oral 2-26 tab, PO, l tablet 18:12: Daily, # [place] 00 30 tab, 0 Refill(s) Saline 2014-09 No Notes: [facility]oria Flush 0.9% 2-26 (Same as: l 15:00: BD [place] 00 Posiflush) Docusate 2014-09 No Notes: [facility]oria 2-26 (Same as: l 15:00: Colace) (Do Not Crush) sennosides, 2014-09 No Notes: Adam whitney RETIREMENT 2-26 (Same as: l 15:00: Senokot) potassium 2014-09 No Notes: Memori a chloride 2-26 (Same as: l 12:00: KCL) Infuse no faster than 10 mEq/hr if given peripheral ly. magnesium 2014-09 No 2 gm, 50 Adam whitney sulfate 2-26 mL, Route: l 11:00: IVPB, Drug form: INJ, ONCE, Start date: 09/20/15 5:00:00, Stop date: 09/20/15 5:00:00 Hydralazine 2014-09 No Notes: Adam whitney 2-26 (Same as: l 10:48: Apresoline ) Push over 5 minutes potassium 2014-09 No Notes: Memori a chloride 2-26 (Same as: l 05:00: KCL) Infuse over 2 hours. Alteplase 2014-09 No 81 mg, Memori a 2-26 Route: IV, l 03:53: ONCE, Turner 00 Dosing Weight 100, kg, For Stroke Infusion, Start date: 09/19/15 21:53:00, Stop date: 09/19/15 21:53:00 Regular 2014-09 No 60 Memoria Insulin, 2-26 units) l Human 100 03:52: Stable for He rmann UNT/ML 00 28 days at Injectable room Solution temperatur e Expires in days from ____Date Dextrose 2014-09 No 6.25 gm, Memor ia 50% Syringe -26 12.5 mL, l 03:52: Route: IVP, Drug Form: INJ, Dosing Weight 100, kg, PRN, PRN Abnormal Lab Result, Start date: 09/19/15 21:52:00, Duration: 30 day, Stop date: 10/19/15 21:51:00 Saline 2014-09 No Notes: Memoria Flush 0.9% - (Same as: l 03:50: BD Posiflush) Acetaminoph 2014-09 No Notes: Do M emoria en - not exceed l 03:50: 4 gm/day. (Same as: Tylenol) Ondansetron 2014-09 No Notes: Adam whitney 2-26 (Same as: l 03:50: Zofran) MEDICATION WASTE Product Size: 4 mg Product Wasted: __0_ mg Nicardipine 2014-09 No Notes: Adam whitney 2-26 Same as: l 03:50: Cardene Concentrat ion: (0.2 mg /1 ml ) Labetalol 2014-09 No 105 mmHg, Me moria 2-26 Priority: l 03:50: Routine, [place] Start date: 09/19/15 21:50:00, Duration: 30 day, Stop date: 10/19/15 21:49:00 Bisacodyl 2014-09 No Notes: Memori a 2-26 (Same As: l 03:50: Dulcolax, [place] 00 Bisco-Lax) Sodium 2014-09 No 1,000 mL, Memori a Chloride - Rate: 50 l 0.154 03:50: ml/hr, [place] MEQ/ML 00 Infuse Injectable over: 20 Solution hr, Route: IV, Dosing Weight 100 kg, Total Volume: 1,000, Start date: 09/19/15 21:50:00, Duration: 30 day, Stop date: 10/19/15 21:49:00 Saline 2014-09 No Notes: [facility] Flush 0.9% - Same as: l 02:57: BD [place] 00 Posiflush Sterile Vital Signs Vital Name Observation Time Observation Value Comments Source Systolic blood 2020 10:47:00 138 mm[Hg] Jarodto n [facility] pressure Diastolic blood 2020 10:47:00 88 mm[Hg] Becky on [facility] pressure Heart rate 2020 10:47:00 74 /min [place] [facility] Respiratory rate 2020 10:47:00 15 /min [place]od [place] [facility] Body height 2020 10:16:00 185.4 cm [place] [facility] Body weight 2020 10:16:00 84.823 kg [place] [facility] BMI 2020 10:16:00 24.67 kg/m2 [place] [facility] Heart Rate 2017-02-18 13:49:00 [facility] Height 2017-02-18 13:49:00 179.58 cm [facility] [place] BMI Calculated 2017-02-18 13:49:00 [facility] [place] Weight 2017-02-18 13:49:00 [facility] [place] Systolic (mm Hg) 2017-02-18 13:49:00 Adam rial Turner Diastolic (mm Hg) 2017-02-18 13:49:00 Mem [facility] [place] Temperature Oral (F) 2016-02-20 15:06:00 98.1 F [facility] [place] BMI Calculated 2016-02-20 15:06:00 [facility] [place] Weight 2016-02-20 15:06:00 [facility] [place] Height 2016-02-20 15:06:00 185.42 cm [facility] [place] Systolic (mm Hg) 2016-02-20 15:06:00 Adam rial [place] Diastolic (mm Hg) 2016-02-20 15:06:00 Mem o[facility] [place] Respitory Rate 2016-02-20 15:06:00 [facility]ori al [place] Heart Rate 2016-02-20 15:06:00 [facility] [place] Height 2016-01-29 19:21:00 185.42 cm [facility] [place] Weight 2016-01-29 19:21:00 [facility] [place] BMI Calculated 2016-01-29 19:21:00 Memori al [place] Systolic (mm Hg) 2016-01-29 19:21:00 Adam rial [place] Diastolic (mm Hg) 2016-01-29 19:21:00 Mem orial [place] Temperature Oral (F) 2016-01-29 19:21:00 97.6 F [facility] [place] Respitory Rate 2016-01-29 19:21:00 [facility] [place] Heart Rate 2016-01-29 19:21:00 [facility] [place] Respitory Rate 2016-01-02 16:30:00 Memori al [place] Systolic (mm Hg) 2016-01-02 16:30:00 Adam rial [place] Diastolic (mm Hg) 2016-01-02 16:30:00 Mem orial [place] Respitory Rate 2016-01-02 16:15:00 Memori al [place] Systolic (mm Hg) 2016-01-02 16:15:00 Adam rial Turner Diastolic (mm Hg) 2016-01-02 16:15:00 Mem orial [place] Respitory Rate 2016-01-02 16:00:00 [facility]ori al [place] Systolic (mm Hg) 2016-01-02 16:00:00 Adam rial [place] Diastolic (mm Hg) 2016-01-02 16:00:00 Mem o[facility] [place] BMI Calculated 2016-01-02 15:33:00 [facility] [place] Weight 2016-01-02 15:33:00 [facility] [place] Height 2016-01-02 15:33:00 177.8 cm [facility] [place] Temperature Oral (F) 2016-01-02 14:00:00 98.6 F [facility] [place] Weight 2015-11-14 21:05:00 [facility] [place] BMI Calculated 2015-11-14 21:05:00 [facility] [place] Height 2015-11-14 21:05:00 185.42 cm [facility] [place] Respitory Rate 2015-11-14 21:05:00 [facility] al [place] Heart Rate 2015-11-14 21:05:00 [facility] [place] Temperature Oral (F) 2015-11-14 21:05:00 97.6 F [facility] [place] Systolic (mm Hg) 2015-11-14 21:05:00 Adam rial [place] Diastolic (mm Hg) 2015-11-14 21:05:00 Mem o[facility] [place] BMI Calculated 2015-10-29 19:35:00 [facility] al [place] Weight 2015-10-29 19:35:00 [facility] [place] Systolic (mm Hg) 2015-10-29 19:35:00 Adam rial Turner Diastolic (mm Hg) 2015-10-29 19:35:00 Mem orial [place] Heart Rate 2015-10-29 19:35:00 [facility] [place] Respitory Rate 2015-10-29 19:35:00 [facility]ori al [place] Temperature Oral (F) 2015-10-29 19:35:00 97.0 F [facility] [place] Height 2015-10-29 19:35:00 185.4 cm [facility] [place] Temperature Oral (F) 2015-10-29 17:39:00 97.0 F [facility] [place] Respitory Rate 2015-10-29 17:39:00 [facility] al [place] Heart Rate 2015-10-29 17:39:00 [facility] [place] Systolic (mm Hg) 2015-10-29 17:39:00 Adam rial Turner Diastolic (mm Hg) 2015-10-29 17:39:00 Mem orial [place] BMI Calculated 2015-10-29 17:39:00 [facility] al [place] Weight 2015-10-29 17:39:00 [facility] [place] Height 2015-10-29 17:39:00 185.4 cm [facility] [place] Weight 2015-10-22 23:03:00 [facility] [place] BMI Calculated 2015-10-22 23:03:00 [facility] [place] Height 2015-10-22 23:03:00 185.42 cm [facility] [place] Systolic (mm Hg) 2015-10-22 23:03:00 Adam rial [place] Diastolic (mm Hg) 2015-10-22 23:03:00 Mem orial [place] Heart Rate 2015-10-22 23:03:00 [facility] [place] Temperature Oral (F) 2015-10-22 23:03:00 97.6 F [facility] [place] Respitory Rate 2015-10-22 23:03:00 Memori al [place] Systolic (mm Hg) 2015-10-20 20:40:00 Adam rial [place] Diastolic (mm Hg) 2015-10-20 20:40:00 Mem orial [place] Respitory Rate 2015-10-20 20:40:00 [facility] al [place] Respitory Rate 2015-10-20 18:00:00 [facility] al [place] Systolic (mm Hg) 2015-10-20 18:00:00 Adam rial [place] Diastolic (mm Hg) 2015-10-20 18:00:00 Mem orial [place] Systolic (mm Hg) 2015-10-20 16:00:00 Adam rial [place] Diastolic (mm Hg) 2015-10-20 16:00:00 Mem orial [place] Respitory Rate 2015-10-20 16:00:00 [facility] al [place] Temperature Oral (F) 2015-10-20 10:00:00 98.6 F [facility] [place] Temperature Oral (F) 2015-10-20 06:00:00 97.9 F [facility] [place] Temperature Oral (F) 2015-10-20 02:08:00 98.7 F [facility] [place] Weight 2015-10-09 10:58:00 [facility] [place] Heart Rate 2015-10-02 04:00:00 [facility] [place] Heart Rate 2015-10-02 03:45:00 [facility] [place] Heart Rate 2015-10-02 03:30:00 [facility] [place] Systolic (mm Hg) 2015-09-29 23:22:00 Adam rial [place] Diastolic (mm Hg) 2015-09-29 23:22:00 Mem orial [place] Height 2015-09-29 23:22:00 185.42 cm [facility] [place] BMI Calculated 2015-09-29 23:22:00 [facility] al [place] Weight 2015-09-29 23:22:00 [facility] [place] Temperature Oral (F) 2015-09-29 23:22:00 98.7 F [facility] [place] Heart Rate 2015-09-29 23:22:00 [facility] [place] BMI Calculated 2015-09-29 22:40:00 [facility] [place] Weight 2015-09-29 22:40:00 [facility] [place] Height 2015-09-29 22:40:00 185.42 cm [facility] [place] Systolic (mm Hg) 2015-09-22 23:50:00 Adam rial [place] Diastolic (mm Hg) 2015-09-22 23:50:00 Mem o[facility] [place] Heart Rate 2015-09-22 23:50:00 [facility] [place] Respitory Rate 2015-09-22 23:50:00 [facility] [place] Heart Rate 2015-09-22 18:20:00 [facility] [place] Systolic (mm Hg) 2015-09-22 18:20:00 Adam rial [place] Diastolic (mm Hg) 2015-09-22 18:20:00 Mem orial [place] Respitory Rate 2015-09-22 18:20:00 [facility] [place] Systolic (mm Hg) 2015-09-22 17:20:00 Adam rial [place] Diastolic (mm Hg) 2015-09-22 17:20:00 Mem orial [place] Respitory Rate 2015-09-22 14:00:00 [facility] [place] Heart Rate 2015-09-20 09:54:00 [facility] [place] Weight 2015-09-20 05:44:00 [facility] [place] BMI Calculated 2015-09-20 05:44:00 [facility] [place] Height 2015-09-20 05:44:00 185.42 cm [facility] [place] Temperature Oral (F) 2015-09-20 03:24:00 96.7 F [facility] [place] Weight 2015-09-20 02:45:00 [facility] [place] BMI Calculated 2015-09-20 02:45:00 Memori al [place] Height 2015-09-20 02:45:00 185.42 cm [facility] [place] Procedures Procedure Date / Time Performed Performing Clinician Sourc e CV CTA CORONARY PRE AFIB 2020 10:53:54 Osbaldo Casey [facility] PULMONARY VEIN MAPPING POC CREATININE 2020 10:09:00 Osbaldo Casey Meth odist ESTIMATED GFR 2020 10:09:00 Osbaldo Casey Meth odist Lithotripsy 1990-09-26 00:00:00 [facility] Fusion of joint of 1977-09-26 06:00:00 Cam Tompkins cervical spine with internal fixation by anterior approach Kidney - local excision 1951-09-26 00:00:00 Adam erma Tompkins Operation<sup>1</sup> [facility] luis Plan of Care Planned Activity Planned Date Details Comments Source Future Scheduled 2020-04-26 INFLUENZA VACCINE [place] [facility] 00:00:00 [code = INFLUENZA VACCINE] Future Scheduled 2006 65+ PNEUMOCOCCAL [facility] [facility] Test 00:00:00 VACCINE (1 of 2 - PCV13) [code = 65+ PNEUMOCOCCAL VACCINE (1 of 2 - PCV13)] Future Scheduled 1991 SHINGLES VACCINES (#1) [facility] [place] [facility] Test 00:00:00 [code = SHINGLES VACCINES (#1)] Encounters Start End Encounter Admission Attending Care Care Encounter Source Date/Time Date/Time Type Type Clinicians Facility Department ID 2020 2020 Outpatient JAYMEREPLACED BY [facility] [id number] [place] 00:00:00 00:00:00 NADIM [address] 2017-02-18 2017-02-18 Outpatient Julio [facility] [id number] 08:33:00 23:59:00 Stewart 2016-12-21 2016-12-22 Outpatient 2.16.840. 2.16.840.1. [id number] 13:40:00 23:59:59 [id number] 3.615.91 5.91 2016-10-22 2016-10-23 Outpatient 2.16.840. 2.16.840.1. 6 [id number] 15:28:00 23:59:59 [id number] 3.615.91 5.91 2016-04-14 2016-04-15 Outpatient 2.16.840. 2.16.840.1. 6 [id number] 16:10:00 23:59:59 [id number] 3.615.91 5.91 2016-02-24 2016-02-25 Outpatient 2.16.840. 2.16.840.1. 6 [id number] 09:02:00 23:59:59 [id number] 3.615.91 5.91 2016-02-20 2016-02-20 Outpatient Julio [facility] [id number] 09:26:00 23:59:00 Stewart 48 2016-01-29 2016-01-29 Outpatient Isamar [facility] [id number] 12:31:00 23:59:00 Soma 2016-01-13 2016-01-14 Outpatient 2.16.840. 2.16.840.1. 6 [id number] 17:19:00 23:59:59 [id number] 3.615.91 5.91 2016-01-02 2016-01-02 Outpatient Fernando [facility] [id number] 08:30:00 12:08:00 Carson 05 Mandeep 2015-11-14 2015-11-14 Outpatient Fernando [facility] [id number] 12:50:00 23:59:00 Carson Mandeep 2015-11-14 2015-11-14 Outpatient Fernando [facility] [id number] 10:37:00 23:59:00 Carson 50 Mandeep 2015-10-29 2015-10-29 Outpatient Isamar [facility] [id number] 11:05:00 23:59:00 [facility] 2015-10-22 2015-10-22 Outpatient Julio [facility] [id number] 15:57:00 23:59:00 Stewart 00 2015-09-29 2015-10-20 Outpatient Fernando [facility] [id number] 16:10:00 16:40:00 Carson 04 Mandeep 2015-09-29 2015-09-29 Outpatient Fernando [facility] [id number] 15:46:00 23:59:00 Carson 00 Mandeep 2015-09-19 2015-09-22 Outpatient Thanh [facility] [id number] 20:47:00 18:09:00 Mario Mac Results Test Description Test Time Test Comments Results Result Comments Source CHEM PANEL 2015-10-20 2.4 [facility] Danette nn 10:59:00 ELECTROLYTES 2015-10-20 10.4 [facility] Her contreras 10:59:00 ELECTROLYTES 2015-10-20 57 [facility] Her contreras 10:59:00 ELECTROLYTES 2015-10-20 34 [facility] Her contreras 10:59:00 ELECTROLYTES 2015-10-20 98 [facility] Her contreras 10:59:00 ELECTROLYTES 2015-10-20 3.4 [facility] Her contreras 10:59:00 ELECTROLYTES 2015-10-20 139 [facility] Her contreras 10:59:00 ELECTROLYTES 2015-10-20 1.24 [facility] Her contreras 10:59:00 ELECTROLYTES 2015-10-20 33 [facility] Her contreras 10:59:00 ELECTROLYTES 2015-10-20 102 [facility] Her contreras 10:59:00 ELECTROLYTES 2015-10-20 8.7 [facility] Her contreras 10:59:00 HEMATOLOGY 2015-10-20 14.3 [facility] [place] nn 10:59:00 HEMATOLOGY 2015-10-20 73.3 [facility] [place] nn 10:59:00 HEMATOLOGY 2015-10-20 1.8 [facility] [place] nn 10:59:00 HEMATOLOGY 2015-10-20 2.6 [facility] [place] nn 10:59:00 HEMATOLOGY 2015-10-20 8.9 [facility] [place] nn 10:59:00 HEMATOLOGY 2015-10-20 9.2 [facility] [place] nn 10:59:00 HEMATOLOGY 2015-10-20 0.9 [facility] [place] nn 10:59:00 HEMATOLOGY 2015-10-20 1.1 [facility] [place] nn 10:59:00 HEMATOLOGY 2015-10-20 0.1 [facility] [place] nn 10:59:00 HEMATOLOGY 2015-10-20 0.3 [facility] [place] nn 10:59:00 HEMATOLOGY 2015-10-20 303 [facility] [place] nn 10:59:00 HEMATOLOGY 2015-10-20 8.1 [facility] [place] nn 10:59:00 HEMATOLOGY 2015-10-20 17.4 [facility] [place] nn 10:59:00 HEMATOLOGY 2015-10-20 3.15 [facility] [place] nn 10:59:00 HEMATOLOGY 2015-10-20 12.5 [facility] [place] nn 10:59:00 HEMATOLOGY 2015-10-20 93.0 [facility] [place] nn 10:59:00 HEMATOLOGY 2015-10-20 10:59:00 Test Item Value Reference Range Interpretation Comme nts MCH (test code = MCH) 30.4 pg 27.0-31.0 [facility] [id number] 10:59:009.6[facility] HermannHEMATOLOGY 2015-10-20 10:59:0029.3[facility] WywhaypBWHJYBZBNO9334-42-41 10:59:0032.7[facility] HermannCHEM [id number] 20:42:004.0[facility] HermannCHEM [id number] 20:42:002.4[facility] HermannCHEM [id number] 20:42:0042[facility] HermannCHEM BRPSF0121-55-04 20:42:0032[facility] HermannCHEM BTPFH6311-09-31 20:42:0012.6 [facility] HermannCHEM [id number] 20:42:008.3[facility] HermannCHEM PANEL 2015-10-19 20:42:0096[facility] HermannCHEM [id number] 20:42:0028[facility] HermannCHEM [id number] 20:42:06955Kjdmtouw HermannCHEM RWLCV3566-07-07 20:42:003.6[facility] HermannCHEM [id number] 20:42:88618Qdokecko HermannCHEM [id number] 20:42:001.58[facility] HermannCHEM [id number] 11:00:002.5 [facility] EraijxoVFYXZNDKEYRJ2383-61-79 11:00:0012.5[facility] HermannELECTROLYTES 2015-10-19 11:00:0059[facility] TfjbuzjNVIJZFFLMOYZ0646-05-78 11:00:0023[facility] XlcckjyJCBIVAMUEKRO2831-46-67 11:00:80515Hexdpxeb JuuvqzdMABZIOBUPVJM1726-40-49 11:00:06623Slexnqzq OsqzfinPBOMVGVWVURH6439-97-64 11:00:0099[facility] ZPTRLXHJOXZX2569-54-60 11:00:003.5[facility] WavtzpwYPYSZTNBTOBO8733-73-89 11:00:001.20[facility] HtmgwfhPHUQGLRWEEOF3731-86-80 11:00:008.6[facility] WLRVQMWTONXR9982-36-53 11:00:0032[facility] FpmdnudOSZAKHNMSJ1192-36-37 11:00:00 16.7[facility] WylyfwnNTFRTYHRHP1817-50-10 11:00:0032.7[facility]annHEMATOLOGY 2015-10-19 11:00:00 Test Item Value Reference Range Interpretation Comments MCH (test code = MCH) 30.4 pg 27.0-31.0 [facility] MlrphjwKISBIJOCKE4922-59-24 11:00:0092.8[facility] HermannHEMATOLOGY 2015-10-19 11:00:0031.3[facility] XfnxsguKFNULIPBXH9048-30-77 11:00:0012.7[facility] XagdtafDXHRIQDEPQ1418-37-00 11:00:003.38[facility] IynbautFARCGUPIEH7964-40-54 11:00:007.4[facility] ZmjnalzMOUJMDDWEF9568-18-48 11:00:29305Ppdpkmte Turner XBKDCCYRSY3052-34-33 11:00:0010.3[facility] NnnkskcRFWNMHRDUK2997-17-47 11:00:00 0.1[facility] DmajnxpSUAUHDPWRI0613-42-71 11:00:000.4[facility]annHEMATOLOGY 2015-10-19 11:00:001.2[facility] BkboixvFNENXUALJC7051-47-01 11:00:001.8[facility] HroyuivWWOBPNFICE2511-53-07 11:00:009.2[facility] LuyqdrpFFWWPRVHHP0074-92-00 11:00:009.4[facility] HetryeaWDEWCLAUIF2448-44-35 11:00:0013.9[facility] [place] DJXSJWIPND2340-39-72 11:00:0072.8[facility] EanmbmxBCRAAVUALR1088-28-29 11:00:00 3.0[facility] CjdzwteHUTKKTGQEI5730-57-06 11:00:000.9[facility] HermannCHEM PANEL 2015-10-18 18:18:002.8[facility] OoqeuovKMHHOWTXGU4994-67-39 09:00:000.2[facility] IptinrwTBRQBJYLEQ9345-51-41 09:00:0072.0[facility] DenrnzvEDOBNYUQSN6764-84-42 09:00:009.1[facility] PjogfbbNIYRCFIPTZ5380-53-80 09:00:003.0[facility] LBTHIDOMBE8655-21-99 09:00:0014.5[facility] BcwussjGLXPRWMPXO5144-51-07 09:00:00 1.6[facility] TmjpccrVQJSINKJZO7313-01-09 09:00:000.3[facility]annHEMATOLOGY 2015-10-18 09:00:008.0[facility] IdusioaVKSGLSJZRP9455-89-19 09:00:001.0[facility] NbafjqsTCPKXJNAXC6004-57-51 09:00:001.4[facility] EefnxmhOCLBMNUMDR6293-91-19 09:00:007.8[facility] UkpdbbrNTDAESKLVP8094-73-28 09:00:0016.1[facility] KVELYXNIPG2680-19-59 09:00:87617Lbjndsuq NjhhybnROZBXVAITS0078-56-83 09:00:00 3.09[facility] XlqkarbRFNRHNRLFG9182-31-41 09:00:0011.1[facility]annHEMATOLOGY 2015-10-18 09:00:0032.6[facility] AzdczxxHUHLFIVBIU8714-85-69 09:00:0092.1[facility] FiwjasrDAQZNOLEBI5530-29-06 09:00:00 Test Item Value Reference Range Interpretation Comments MCH (test code = MCH) 30.0 pg 27.0-31.0 [facility] IylsaphNGSQGOXZWM3492-16-55 09:00:009.3[facility] HermannHEMATOLOGY 2015-10-18 09:00:0028.5[facility] HermannCHEM UVOEB4502-89-55 15:30:002.2[facility] HermannCHEM WORXI5907-90-84 11:38:001.5[facility]annCHEM IOCQK8434-80-06 11:38:0029[facility]annCHEM AFYAQ7670-31-06 11:38:002.2[facility]annCHEM ZDSPI0788-37-97 11:38:005.6[facility]annCHEM JQJTS4703-79-21 11:38:0056 [facility]annCHEM KKEIA6931-39-07 11:38:001.1[facility] HermannCHEM PANEL 2015-10-14 11:38:34160Kedhxguq HermannCHEM DEBYI4463-01-79 11:38:000.3[facility]annCHEM SGZMP3553-16-00 11:38:000.8[facility]annCHEM UCOGQ2469-01-43 11:38:000.6[facility]annCHEM WWJPI1363-68-30 11:38:003.4[facility]UR[facility] AND JBJIB7787-78-49 06:34:002[facility] DSBKF5385-84-06 06:34:001 [facility] FNAZQ2632-22-53 06:34:00Negative (10/14/15 12:34 AM) [facility] FPDQX2454-19-64 06:34:00Negative (10/14/15 12:34 AM) [facility] XBDEQ8828-40-07 06:34:00Trace *ABN*(10/14/15 12:34 AM) [facility] OVSPD8739-54-01 06:34:007[facility] PIOZN3931-83-50 06:34:001.007[facility] AQCKD5189-88-54 06:34:00 Clear (10/14/15 12:34 AM)[facility] BRNAY7408-99-66 06:34:00Yellow *NA*(10/14/15 12:34 AM)[facility] URWGY8529-55-91 06:34:005.5 [facility] CBKUG5487-33-46 06:34:00Negative *NA*(10/14/15 12:34 AM)[facility]annANEMIA OXRPL1502-94-09 19:02:20604Uhpqohpx HermannANEMIA WZGLQ4459-80-91 19:02:0011[facility]annANEMIA AQFQE9219-83-00 19:02:43509 [facility]annANEMIA QLORT7609-66-32 19:02:0024[facility]annANEMIA STUDY 2015-10-13 19:02:80682Pvkcmyvq HermannCHEM RMRSM6559-86-33 19:02:002.9[facility] KnsqldvCEZHFMBKTU3321-81-76 19:02:0018[facility] JsrzshkOKUSKEVQUS2727-63-67 19:02:0013.3[facility] HermannCHEM HUWSZ3970-99-42 10:12:0089[facility]annCHEM BMUYA1600-84-80 10:12:002.3[facility]annCHEM WGELB5801-57-71 10:12:005.7 [facility]annCHEM HUBKA7494-35-89 10:12:12500Zmfzpiwk HermannCHEM PANEL 2015-10-11 10:12:0035[facility]annCHEM WCLML8562-93-17 10:12:000.3[facility]annCHEM ACRTO2348-99-97 10:12:001.0[facility]annCHEM MATBT8716-51-03 10:12:000.7[facility]annCHEM GZTAU7262-93-84 10:12:003.4[facility]annCHEM GOYXV7457-84-48 10:12:000.7[facility]annCHEM JYDND4219-57-42 07:18:000.7 [facility]annCHEM ILASW9503-63-89 07:18:003.4[facility] HermannCHEM PANEL 2015-10-10 07:18:000.5[facility] HermannCHEM EOGJA5937-10-32 07:18:0035[facility]annCHEM TJSPC9620-85-08 07:18:75492Snohopfr HermannCHEM GLXQF7700-29-24 07:18:001.0[facility] HermannCHEM CFALL1246-52-80 07:18:002.5[facility]annCHEM WIMSL8390-11-08 07:18:005.9[facility]annCHEM SZTCO5627-35-99 07:18:31358 [facility]annCHEM ERRIF6757-33-27 07:18:000.5[facility] HermannHEMATOLOGY 2015-10-10 07:18:0012[facility] PRNXN1133-21-17 17:37:00Yellow *NA*(10/09/15 11:37 AM)[facility] MISRY3038-20-67 17:37:00Clear (10/09/15 11:37 AM)[facility] BLHZU6585-00-59 17:37:00Negative *NA*(10/09/15 11:37 AM)[facility] MWKXM9640-50-99 17:37:00Negative (10/09/15 11:37 AM)[facility] HWRLE1099-06-30 17:37:001[facility] ASFJN9967-38-86 17:37:00Negative (10/09/15 11:37 AM)[facility] TKBDJ0760-44-73 17:37:00Negative (10/09/15 11:37 AM)[facility] NHBXA4236-70-32 17:37:005.0[facility] STOOL 2015-10-09 17:37:001.010[facility] LTGYD2456-84-21 17:37:001 [facility] FWXJK5755-10-07 17:37:001[facility]annHEMATOLOGY 2015-10-09 10:52:00Normal (10/09/15 4:52 AM)[facility] UsvlinbFGKKETLKOK5491-68-88 10:52:00Normal (10/09/15 4:52 AM)[facility] HermannANEMIA QRDVX2518-77-76 22:52:00 189[facility]annANEMIA NMZUU5561-91-16 22:52:0012[facility]annANEMIA STUDY 2015-10-06 22:52:47091Yocrcplm HermannANEMIA BMOSD4941-05-86 22:52:0024[facility] HermannANEMIA HUFBM5151-10-48 22:52:23927Hgvizbhq AtrebkwFXEAWROPMI1343-12-80 22:52:004.3[facility]annBLOOD BANK CZJGSCL4691-35-10 10:35:00Negative (10/05/15 4:35 AM)[facility] BogfkeuGZCYHKCPBY7634-40-30 09:16:001.68[facility] TrmcmewJZSUHCZCSV9354-64-56 09:16:00 Test Item Value Reference Range Interpretation Comments PT (test code = PT) 20.1 s 12.0-14.7 [facility] FyksuxtRAARZGZLHK9612-17-40 09:16:00 Test Item Value Reference Range Interpretation Comments PTT (test code = PTT) 36.2 s 22.9-35.8 [facility] HermannCARDIAC WACCCCZ2288-84-70 19:01:87605Ysnqpzyk HermannBLOOD BANK SXGSVDZ7749-11-86 15:57:00Negative (10/02/15 9:57 AM)[facility] HermannCHEM PANEL 2015-10-02 08:56:0016[facility] ZyfaaajRRLLUUZRSW6981-19-01 08:56:00 Test Item Value Reference Range Interpretation Comments PT (test code = PT) 20.9 s 12.0-14.7 [facility] IozzpxhDQCSBYPVCO4049-11-95 08:56:001.77[facility] HermannHEMATOLOGY 2015-10-02 08:56:00 Test Item Value Reference Range Interpretation Comments PTT (test code = PTT) 33.9 s 22.9-35.8 [facility]annCHEM QFARW6961-96-79 00:37:006.8[facility] STOOL 2015-10-02 00:37:00Negative *NA*(10/01/15 6:37 PM)[facility] STOOL 2015-10-02 00:37:00Moderate *ABN*(10/01/15 6:37 PM)[facility] STOOL 2015-10-02 00:37:00Negative (10/01/15 6:37 PM)[facility] STOOL 2015-10-02 00:37:003[facility] OWOZP9388-71-29 00:37:00Yellow *NA*(10/01/15 6:37 PM)[facility] RVRVV9151-01-21 00:37:0015[facility] XAOAS6430-64-30 00:37:00Moderate *ABN*(10/01/15 6:37 PM)[facility] RYPYW1203-00-12 00:37:00Slight *ABN*(10/01/15 6:37 PM)[facility] BFOJN4769-37-23 00:37:001.016[facility] STOOL 2015-10-02 00:37:005.0[facility] EMAWN3001-99-22 00:37:009 [facility] TKKN2451-82-81 00:37:0052.6[facility]UR[facility] CHEM 2015-10-02 00:37:0016[facility]annUR[facility] VTRR3810-40-58 00:37:01821.00[facility]annURINE MWGA7819-45-70 00:37:000.5[facility] HermannCHEM HZVIY5482-46-08 21:22:005.6[facility] UlvgomqHWEFCMVNNG2562-17-90 14:40:00 Test Item Value Reference Range Interpretation Comments PTT (test code = PTT) 35.1 s 22.9-35.8 [facility] OrjdtyhCCDFKWJTNR3215-05-01 14:40:00 Test Item Value Reference Range Interpretation Comments PT (test code = PT) 21.2 s 12.0-14.7 [facility] CkriknmGDPGUYTUEF0480-28-01 14:40:001.80[facility]annBLOOD BANK JXSDHJP7279-88-72 09:00:00Product available (10/01/15 3:00 AM)[facility] PARATHYROID RBASHUP7345-00-98 07:16:001.08[facility] HermannPARATHYROID PROFILE 2015-10-01 07:16:001.09[facility] HermannCHEM CQADH3927-45-50 01:18:009[facility] HermannBACTERIAL - AHEWAHBV3510-37-36 23:53:00Negative (09/30/15 5:53 PM)[facility] HfniwxuNNPJUIYKGB1444-13-05 23:53:00Normal (09/30/15 5:53 PM)[facility] SCHTGVHVSW7944-53-48 23:53:00Normal (09/30/15 5:53 PM)[facility] HermannPARATHYROID TGDDDOG5960-34-43 23:53:000.95[facility] HermannPARATHYROID ZBRBQPW1636-19-98 23:53:000.99[facility] HermannCARDIAC CCJQNED6924-29-25 09:30:56153Ighyqrww HermannCHEM EIFKY4797-17-52 09:30:05919Lqsmebrs HermannCHEM VLWBN5047-38-93 09:30:0014[facility] HermannCHEM BMILW8537-57-82 09:30:0052[facility]annBLOOD BANK RJRNGCI1693-89-10 23:51:00Negative (09/29/15 5:51 PM)[facility]annCHEM PPOEK3439-95-39 08:55:003.1[facility] HermannCHEM HOARN1875-82-25 08:55:002.0 [facility] JuegteeWDRQHXQHNRCZ6454-77-13 08:55:0025[facility] HermannELECTROLYTES 2015-09-22 08:55:008.4[facility] LgluwkvQIJHFASTSGNT0167-00-13 08:55:0012.2 [facility] HpbqvunOTQJVRMALHJK6434-21-22 08:55:0085[facility] HermannELECTROLYTES 2015-09-22 08:55:18724Ezngihoy SysvhjkOGFZFXOVERMD7541-80-80 08:55:0013[facility] NmyplbsKGNGHJUIWVUC2943-56-33 08:55:000.88[facility] ZttaaxyIKQQHGOSOWFW4526-61-88 08:55:82219Znmugkeo QnzzmvaJKARAYAGQHIG0840-70-82 08:55:003.2[facility] WFKZZQTIUTMA9792-30-92 08:55:49176Aezvxwgw RtxgygxTBGKEVZVCK9678-06-59 08:55:00 6.9[facility] VzcluhrBUZGPDYFFJ7725-09-13 08:55:0057.6[facility] HermannHEMATOLOGY 2015-09-22 08:55:0011.0[facility] UwxiosaSTZCWMKSCI3326-70-46 08:55:001.0[facility] RdyxegsVODWIIATTI5861-43-05 08:55:0023.5[facility] LymendjJSIVRELVXZ3682-72-43 08:55:000.5[facility] XvxlegoZXKEVNHNFD3482-91-97 08:55:004.5[facility] NZSVLOGCMI7536-51-65 08:55:000.9[facility] LbtruluOIMQPRZMCG1309-97-33 08:55:000.1 [facility] AzmacfuDXRKZEUWEI7881-96-68 08:55:001.8[facility] HermannHEMATOLOGY 2015-09-22 08:55:008.4[facility] XejcsarNVGWIRXDKO6622-10-16 08:55:16009Enzwookc CkxooyoIEKTRNVNKI5085-58-34 08:55:007.8[facility] FitlbeeKEYFYVSBUM9547-03-71 08:55:0013.6[facility] CxatjxfMQQIFDRICF2487-23-97 08:55:0032.5[facility] JUBQGERRIF7000-61-75 08:55:00 Test Item Value Reference Range Interpretation Comments MCH (test code = MCH) 29.7 pg 27.0-31.0 [facility] QowfzkgNWCTFJCFWJ2977-19-71 08:55:004.58[facility] HermannHEMATOLOGY 2015-09-22 08:55:0091.4[facility] YzgnijcDHMNSPZPUD7865-14-79 08:55:0041.8[facility] ZocupmoLCRCSZNAVO4076-86-59 08:55:0014.8[facility] HermannCHEM BTEMQ7815-17-25 08:28:002.5[facility] HermannCHEM UJCPO3643-88-78 08:28:002.1[facility] HermannCHEM OZVLO6399-67-96 08:28:0094[facility] HermannCHEM YNFPH1250-58-70 08:28:0010 [facility] HermannCHEM QUVSV1725-65-10 08:28:04383Jbkoiwmh HermannCHEM PANEL 2015-09-21 08:28:0023[facility] HermannCHEM GMGZX3532-91-12 08:28:008.5[facility] HermannCHEM WSPCU3728-62-66 08:28:000.69[facility] HermannCHEM IPKRP8724-50-30 08:28:86627Thebomwm HermannCHEM TNQRC3050-82-45 08:28:003.3[facility] HermannCHEM NIIZP0688-78-30 08:28:58116Rlogetbk HermannCHEM JHTFX6090-68-76 08:28:0014.3 [facility] HtdhapnYAWJQAREXR2438-07-58 08:28:000.1[facility] HermannHEMATOLOGY 2015-09-21 08:28:001.6[facility] VviksauMUQKWJKPGE8572-06-78 08:28:005.4[facility] YxjzqvpRPCWXEUXUO8353-89-19 08:28:000.2[facility] KuxwexwUHFBLJVMAE5888-07-68 08:28:000.8[facility] YihfgpiCYULHETVYM3807-50-46 08:28:000.8[facility] VNREBNLMPP1872-38-87 08:28:009.6[facility] PpcdjltITLWADCOHX2319-04-36 08:28:002.1 [facility] PjjywfyTBVINBOLWI7176-00-13 08:28:0067.7[facility] HermannHEMATOLOGY 2015-09-21 08:28:0019.8[facility] KjpkmutKZYTPWAWZS4078-53-44 08:28:0015.0[facility] AytjdpwUDHCORHQSR4997-56-76 08:28:39369Rphrvhuo XheuyhbYPKWYQDDYJ1080-49-44 08:28:008.2[facility] IfrxvpqHHKUXZECHC6974-43-58 08:28:0013.6[facility] AWJTTOGPMP1321-46-84 08:28:00 Test Item Value Reference Range Interpretation Comments MCH (test code = MCH) 29.2 pg 27.0-31.0 [facility] JgirhtbWCNTEEAJIV7255-15-81 08:28:0043.0[facility] HermannHEMATOLOGY 2015-09-21 08:28:0092.4[facility] GmxludnODYDBPUSTJ7118-28-65 08:28:008.0[facility] NrmakkyWNYAJLNNVY4294-33-69 08:28:004.66[facility] YegfaquIAIQCPLOQN4917-93-13 08:28:0031.6[facility] HermannPARATHYROID NUQCRLP3048-12-09 08:28:001.05[facility] HermannPARATHYROID PQOTPJC3143-21-79 08:28:001.06[facility] HermannCARDIAC ENZYMES 2015-09-20 16:47:0045[facility] HermannCARDIAC GULPGXB6339-17-80 16:47:000.02 [facility]annCARDIAC FQABJIK8425-24-89 16:47:00<0.010[facility] BACTERIAL - MTCNVNYX9814-59-18 08:08:00Negative (09/20/15 2:08 AM)[facility]annCARDIAC RBLRCZP8842-36-49 08:00:0045[facility]annCARDIAC ENZYMES 2015-09-20 08:00:00<0.010[facility]annCARDIAC KXGYPJG6159-44-67 08:00:00 0.02[facility] HermannCHEM EZCMU7747-06-12 08:00:0072[facility] HermannCHEM PANEL 2015-09-20 08:00:008.3[facility] HermannCHEM MJBFF4487-36-08 08:00:001.02[facility] HermannCHEM POAZB1851-15-70 08:00:80619Ihulnyfh HermannCHEM FVFSM6948-93-19 08:00:0018[facility] HermannCHEM TRJOA1525-74-99 08:00:0024[facility] HermannCHEM OOVXW2231-48-07 08:00:0012.1[facility] HermannCHEM QVKKY9574-43-27 08:00:003.1 [facility]annCHEM JTIQF1884-65-09 08:00:29366Xreqpuxy HermannCHEM PANEL 2015-09-20 08:00:87358Ilcfkusp HermannCHEM DWBFU9060-25-28 08:00:000.5[facility] HermannCHEM EXHQB4551-35-06 08:00:000.3[facility] HermannCHEM YQLOM5118-62-69 08:00:000.8[facility] HermannCHEM JJCZW7680-06-09 08:00:0018[facility]annCHEM VNSCB0868-20-31 08:00:10737Adjwivbc HermannCHEM SAZJJ1584-60-92 08:00:000.8 [facility]annCHEM YFVKV4509-55-96 08:00:0029[facility] HermannCHEM PANEL 2015-09-20 08:00:007.1[facility] HermannCHEM WEDTB0321-31-16 08:00:004.0[facility] HermannCHEM RXJYY4198-93-93 08:00:003.1[facility] HermannCHEM KQRMW3195-28-62 08:00:003.8[facility] HermannCHEM JEZRP8634-24-91 08:00:001.8[facility] IIBGCGLIRZ2080-54-79 08:00:0032.4[facility] UfzvrkcNBMADWJEKB5442-05-18 08:00:00 14.2[facility] IfaqfnoLONEAHHETZ9929-32-55 08:00:12889Ylhqxpap HermannHEMATOLOGY 2015-09-20 08:00:008.1[facility] LvzlmggMTQOPYSEZO6101-85-88 08:00:00 Test Item Value Reference Range Interpretation Comments MCH (test code = MCH) 29.6 pg 27.0-31.0 [facility] MloamqsGHBONTFHYQ6590-15-87 08:00:008.1[facility] HermannHEMATOLOGY 2015-09-20 08:00:004.62[facility] GpyokwdHVMQGDMIEN8073-13-53 08:00:0013.6[facility] EyjqfieVPPEYZBKRK1526-84-48 08:00:0042.2[facility] UdscltlDPLBOKZNVB1513-45-89 08:00:0091.3[facility] TauenepKRRIGGXVDZ4960-41-59 08:00:0017[facility] BPOMUZZTBH7981-74-84 08:00:000.7[facility] TygpbzkLIGAZMEYIA0294-03-97 08:00:00 23.3[facility] DphebwaBDVXZSUTLK2150-58-13 08:00:007.7[facility] HermannHEMATOLOGY 2015-09-20 08:00:0066.5[facility] HzfclqbJHGSPUAXYQ3494-42-91 08:00:001.8[facility] UegcyltCZWJVGKWNT2139-76-07 08:00:000.1[facility] FyumxsrUFSMOBFUJN7861-57-28 08:00:000.1[facility] KikcxsfGVAHIBPRXY7511-68-60 08:00:001.9[facility] VEGIRPEQVJ5487-44-13 08:00:000.6[facility] HtajqwkBZEDEEENIX4732-63-81 08:00:005.4 [facility] HermannPARATHYROID ALNOTHD9056-66-06 08:00:001.06[facility] PARATHYROID UVMUBIQ6481-76-97 08:00:001.06[facility] HermannDRUG JFETRB5578-41-10 04:09:00See Note *NA*(09/19/15 10:09 PM)[facility] HermannDRUG TOFKCX6712-65-04 04:09:00Negative *NA*(09/19/15 10:09 PM)[facility] HermannDRUG WFEOEX6051-32-71 04:09:00Negative *NA*(09/19/15 10:09 PM)[facility] HermannDRUG OVJHLS0605-35-90 04:09:00Negative *NA*(09/19/15 10:09 PM)[facility] HermannDRUG DBUUAW5982-92-60 04:09:00Negative *NA*(09/19/15 10:09 PM)[facility] HermannDRUG YJZCJO9185-98-60 04:09:00Negative *NA*(09/19/15 10:09 PM)[facility] HermannDRUG TPAMKS5825-65-50 04:09:00Negative *NA*(09/19/15 10:09 PM)[facility] HermannDRUG UGZVTH5085-00-92 04:09:00Negative *NA*(09/19/15 10:09 PM)[facility] OnypcbbLNOPAQ8774-91-99 04:09:002.84[facility] XlmkmztNUHOGS1493-47-02 04:09:0037[facility] HermannLIPIDS 2015-09-20 04:09:0037[facility] QrtxqbeUHVOYH3057-00-94 04:09:0031[facility] KMVRRL9338-44-78 04:09:78505Puyjwurd IfdogcaROFXMU7274-17-82 04:09:68326Lkznwbqk HermannSPECIAL HNATORBYY1803-44-91 04:09:006.0[facility]annURINE AND STOOL 2015-09-20 04:09:00Negative *NA*(09/19/15 10:09 PM)[facility]annUR[facility] AND EGJAK0721-02-80 04:09:00Negative (09/19/15 10:09 PM)[facility]UR[facility] AND QINTB3826-78-34 04:09:000.2[facility]annUR[facility] AND KQVUE9405-77-30 04:09:00 Small *ABN*(09/19/15 10:09 PM)[facility]UR[facility] AND UMKWZ6245-33-26 04:09:00 Negative *NA*(09/19/15 10:09 PM)[facility]UR[facility] AND MGGUO3589-32-64 04:09:00 Test Item Value Reference Range Interpretation Comments UA Spec Grav (test code = UA Spec 1.015 1 Grav) [facility]UR[facility] LEOBP0608-50-42 04:09:00Clear (09/19/15 10:09 PM) [facility] DUNRS2420-18-69 04:09:00 Test Item Value Reference Range Interpretation Comments UA pH (test code = UA pH) 5.5 1 5.0-8.0 [facility]UR[facility] AND OCKTH1046-35-50 04:09:00Negative (09/19/15 10:09 PM) [facility] IUQXK8395-55-28 04:09:00Negative (09/19/15 10:09 PM) [facility] CXDUI5564-56-16 04:09:00Yellow *NA*(09/19/15 10:09 PM) [facility] YZSKB0906-32-52 04:09:00None Seen (09/19/15 10:09 PM) [facility] ZBXCY2709-55-13 04:09:000-2 (09/19/15 10:09 PM) [facility] HermannCHEM MUSAG1794-02-95 03:12:001.4[facility] HermannHEMATOLOGY 2015-09-20 03:00:00Citrated Whole Blood (09/19/15 9:00 PM)[facility] APJDXZFIFO8075-38-74 03:00:00 Test Item Value Reference Range Interpretation Comments ACT (TEG) (test code = ACT (TEG)) 113 s 86-118 [facility] IogyoqrLSZBMMBLUW0838-59-23 03:00:00 Test Item Value Reference Range Interpretation Comments Split Point (test code = Split Point) 0.5 min [facility] FoyxnilPLZPCKOJLM3009-43-18 03:00:00 Test Item Value Reference Range Interpretation Comments R-time (test code = R-time) 0.7 min 0.4-0.7 [facility] AngoxfpHFLXEEHXUY3760-72-38 03:00:00 Test Item Value Reference Range Interpretation Comments K-time (test code = K-time) 1.2 min 0.6-2.3 [facility] SwmoqykDFONPOIFWB0840-10-26 03:00:00 Test Item Value Reference Range Interpretation Comments Angle (test code = Angle) 75 degrees 64-80 [facility] XfpkrvtBAHWWGYWAB5580-58-54 03:00:009.4[facility] HermannHEMATOLOGY 2015-09-20 03:00:00 Test Item Value Reference Range Interpretation Comments Max Amp (test code = Max Amp) 65 mm 52-71 [facility]KcgwtqfBRVBUJEUMO3491-88-78 03:00:004.1[facility] HermannCARDIAC ENZYMES 2015-09-20 02:50:003.8[facility] HermannCARDIAC VGDOFOQ6177-89-50 02:50:0053 [facility] HermannCARDIAC JVFNZOB2840-25-84 02:50:00<0.02[facility] CARDIAC MDDNKQS4082-94-80 02:50:002.0[facility] OaerszuZHSEIAPYWC9228-37-90 02:50:00 Test Item Value Reference Range Interpretation Comments PTT (test code = PTT) 33.4 s 22.9-35.8 [facility] LceqhdyOVOOBYYFDP8881-59-00 02:50:001.17[facility] HermannHEMATOLOGY 2015-09-20 02:50:00 Test Item Value Reference Range Interpretation Comments PT (test code = PT) 15.2 s 12.0-14.7 [facility]
[2020-05-01] MEDS ORDERED: LIDOCAINE 1% 20 ML MDV ONE (10:28)
[2020-05-01] MEDS ORDERED: HEPA 1000U/500MLS 1,000 UNIT/500 ML BAG IV ONE (10:28)
[2020-05-01] MEDS ORDERED: FENTANYL CITR 100 MCG/2 ML ONE (10:29)
[2020-05-01] MEDS ORDERED: ATROPINE SULF 1 MG/10 ML SYR IV ONE (10:29)
[2020-05-01] MEDS ORDERED: MIDAZOLAM HCL 2 MG/2 ML INJ ONE ×2 (10:29→11:00)
[2020-05-01] MEDS ORDERED: NA CHLORIDE 0.9% 0 ML ONE (10:29)
[2020-05-01 13:31] VITALS: BP 140/90; TEMP 97.9; O2SAT 96
--- NOTE | 2020-05-01 20:51 | OP ---
Date of Procedure: 05/01/2020 Surgeon: Gerardo Ramirez MD Patient Clerical Assistant: Rosmery Boykin. The patient will remain in the hospital for 2 hours and he goes home after 2 hours of bedrest. Indication: The patient is a patient of Dr. Ballard, is 80, has a history of CAD, status post CABG wit h a BUSCH to the LAD, atrial fibrillation, continued symptoms, we had plan to do a possible ablation. Has a normal ejection fraction with aortic sclerosis. Dr. Babb had suggested we do a heart cathet erization to rule out worsening coronary artery disease before we proceed with any further atrial fib rillation treatment. Description Of Procedure: He was brought to the [facility] today as an outpatient on 05/01/2020. He w as prepped and draped in the routine sterile fashion. He was given Versed for sedation as well as fe ntanyl. A 6-Brazilian sheath was introduced in the right common femoral artery successfully. Angio-Sea l was used to close the case. Seldinger technique was used. 10 cc of Xylocaine were used. A JL4 ca theter was used to cannulate the left main. The left main was large, ectatic, and free of any diseas e. The LAD was occluded at the first diagonal completely. The circumflex was very large, dominant, ectatic vessel with about a 50% to 60% distal OM2 with collaterals from the circ and OM to the PDA an d the RCA. The RCA was completely occluded. The circumflex was ectatic as well and dilated. 6-Fren ch catheters and sheath were used. No complications. The BUSCH was injected and it was patent to the LAD. That was only graft available. Blood Loss: 5 cc. Total Conscious Sedation: 45 minutes. Postoperative Diagnosis: Coronary artery disease, severe. Plan: Plan is to do medical therapy. ANDREIA/DENNY Voice ID: [id number] Report ID: [id number]
== END 2020-05-01 13:48 | disposition home health service (06) ==
LOC: CCL 08:18
DX: I25.10 Atherosclerotic heart disease of native coronary artery without angina pectoris (principal); I25.82 Chronic total occlusion of coronary artery; I11.0 Hypertensive heart disease with heart failure; I50.9 Heart failure, unspecified; I48.91 Unspecified atrial fibrillation; E78.5 Hyperlipidemia, unspecified; I25.2 Old myocardial infarction; G47.30 Sleep apnea, unspecified; Z11.59 Encounter for screening for other viral diseases; Z95.1 Presence of aortocoronary bypass graft
CPT/HCPCS: 93005; 85025; 80048; 36415; 85610; 85730; 71046; 93455; C1893; C1760; J2250 ×2; J3010; J7040; J1644; J0583

== ENCOUNTER 2020-07-27 08:51 | Inpatient (IN) | payer OTHER ==
--- OUTSIDE RECORDS SUMMARY | 2020-07-27 08:53 | XMS REPORT | Clinical Summary ---
:1940 Author Organization [facility] Address [address] [place] [address] Care Team Providers Name Role Phone MD Macy Primary Care Provider Allergies No Known Active Allergies Medications Medication Sig Dispensed Refills Start End Date Status Date aspirin (ECOTRIN) 81 MG Take 81 mg 0 Active enteric coated tablet by mouth daily. losartan (COZAAR) 100 Take 100 mg 0 Active MG tablet by mouth every morning. hydroCHLOROthiazide Take 25 mg 0 Active (HYDRODIURIL) 25 MG by mouth tablet daily. spironolactone Take 25 mg 0 Acti ve (ALDACTONE) 25 MG by mouth tablet daily. amLODIPine (NORVASC) 10 Take 10 mg 0 Active mg tablet by mouth every morning. atorvastatin (LIPITOR) Take 40 mg 0 Active 40 mg tablet by mouth nightly. om Take 1 0 Active 3/E/linol/ala/oleic/gla tablet by /lip (OMEGA 3-6-9 ORAL) mouth daily with breakfast. cranberry fruit extract Take 1 0 Active (CRANBERRY CONCENTRATE tablet by ORAL) mouth every other day. TURMERIC ORAL Take 1 0 Active tablet by mouth every other day. UNABLE TO FIND Goat weed 0 Activ e 1 tablet ever other day guaiFENesin (MUCINEX) Take by 0 Active 600 mg tablet extended mouth as release 12hr needed. Taking for sinus drainage amIODarone (PACERONE) Take 0.5 15 tablet 0 08/06/20 Active 400 MG tablet tablets (200 0 20 mg total) by mouth daily for 30 days. Take 200 mg daily amIODarone (PACERONE) Take by 0 07/07/20 Discontinued 400 MG tablet mouth daily. 20 (Re order) Taking 400 mg in the morning and 200 mg at 2 pm and 100 mg at bedtime Active Problems Problem Noted Date Persistent atrial fibrillation 07/07/2020 Encounters Date Type Specialty Care Team Description 07/07/2020 Anesthesia Event Procedural Shahbaz, Cardiology MD Des Painting Ridporfirio Benjamin 07/07/2020 Surgery Procedural Jean Delacruz EP CARDIOVERSIO N Cardiology MD Jovon [76220 (CPT)] 07/07/2020 Hospital Encounter Procedural Jean Delacruz Persisten t atrial Cardiology MD Jovon fibrillation (H CC) 07/07/2020 Travel 07/03/2020 Lab Lab Jean Delacruz Pre-operative MD Jovon cardiovascular examination 07/03/2020 Community Orders ADMIN Jean Delacruz Pre-operati ve MD Jovon cardiovascular examination (Pr imary Dx) 07/03/2020 Travel 2020 Travel 04/11/2020 Travel 04/11/2020 Transcribe Orders Access Jean Delacruz CAD (coron ariadne artery disease) (Primary Dx); MD Jovon Other persisten t atrial fibrillation after 07/27/2019 Surgical History Surgery Date Site/Laterality Comments CORONARY ARTERY BYPASS GRAFT CARDIOVERSION CARDIAC ELECTROPHYSIOLOGY 07/07/2020 N/A Proced ure: EP PROCEDURE CARDIOVERSION; Surgeon: Jean Delacruz Jr., MD; [facility]; Service: Cardiov ascular; Laterality: N/A ; Medical History Medical History Date Comments Hypertension COPD (chronic obstructive pulmonary disease) (HCC) Coronary artery disease Hyperlipidemia Sleep apnea CPAP (continuous positive airway pressure) dependence use at nite Social History Tobacco Use Types Packs/Day Years Used Date Former Smoker 1 10 Smokeless Tobacco: Never Used Comments: Qick about 45yrs ago Alcohol Use Drinks/Week oz/Week Comments Yes 2 Cans of beer 2.0 a week Sex Assigned at Date Recorded Not on file COVID-19 Exposure Response Date Recorded In the last month, have you been in contact with No / Unsure 07/07/2020 5:41 AM CDT someone who was confirmed or suspected to have Coronavirus / COVID-19? Last Filed Vital Signs Vital Sign Reading Time Taken Comments Blood Pressure 154/87 07/07/2020 8:35 AM CDT Pulse 73 07/07/2020 8:35 AM CDT Temperature 36.1 C (96.9 F) 07/07/2020 5:56 AM CDT Respiratory Rate 21 07/07/2020 8:35 AM CDT Oxygen Saturation 95% 07/07/2020 8:35 AM CDT Inhaled Oxygen Concentration - - Weight 86.6 kg (191 lb) 07/07/2020 6:18 AM CDT Height 185.4 cm (6' 1") 07/07/2020 6:18 AM CDT Body Mass Index 25.2 07/07/2020 6:18 AM CDT Plan of Treatment Health Maintenance Due Date Last Done Comments SHINGLES VACCINES (#1) 1991 65+ PNEUMOCOCCAL VACCINE (1 of 1 - PPSV23) 2006 INFLUENZA VACCINE 04/26/2020 Procedures Procedure Name Priority Date/Time Associated Diagnosis Comme nts ECG 12-LEAD Routine 07/07/2020 8:09 Results for this AM CDT procedure are i n the results section. EP CARDIOVERSION Routine 07/07/2020 8:05 Persistent atrial Re sults for this AM CDT fibrillation (HCC) procedure are in the results section. POC PANEL Routine 07/07/2020 6:39 Results for this AM CDT procedure are i n the results section. ESTIMATED GFR Routine 07/07/2020 6:39 Results fo r this AM CDT procedure are i n the results section. ECG PRE/POST OP STAT 07/07/2020 5:49 Results for this AM CDT procedure are i n the results section. ESTIMATED GFR Routine 07/03/2020 10:59 Results fo r this AM CDT procedure are i n the results section. COMPREHENSIVE Routine 07/03/2020 10:59 Pre-operative Results f or this METABOLIC PANEL AM CDT cardiovascular procedure are in examination the results section. HC COMPLETE BLD COUNT Routine 07/03/2020 10:59 Pre-operative R esults for this W/AUTO DIFF AM CDT cardiovascular procedure are in examination the results section. PROTHROMBIN TIME WITH Routine 07/03/2020 10:59 Pre-operative R esults for this INR AM CDT cardiovascular procedure are in examination the results section. MAGNESIUM LEVEL Routine 07/03/2020 10:59 Pre-operative Results for this AM CDT cardiovascular procedure are in examination the results section. COVID-19 QUALITATIVE Routine 07/03/2020 10:50 Pre-operative Re sults for this PCR AM CDT cardiovascular procedure are in examination the results section. CV CTA CORONARY PRE Routine 2020 10:53 [...] are i n the results section. after 07/27/2019 Results ECG 12 lead (07/07/2020 8:09 AM CDT) Pathologist Sig nature Ventricular rate 61 [facility] Atrial rate 61 [facility] IN interval 250 [facility] QRSD interval 98 [facility] QT interval 474 [facility] QTC interval 477 [facility] P axis 1 76 [facility] QRS axis 1 8 [facility] T wave axis 71 [facility] EKG impression Sinus rhythm with 1st [facility] MUSE degree AV block with premature atrial complexes-Otherwise normal ECG- Specimen Narrative Performed At This result has an attachment that is no t available. Performing Organization Address City/State/ZIP Code Phon e Number [facility] MUSE [address] [place] [address] Electrophysiology procedure (07/07/2020 8:05 AM CDT) Specimen Narrative Performed At This result has an attachment that is no t available. SYNGO Jean Delacruz Jr., MD Physician Electrophysiology Brief Op Note Signed Date of Service: 07/07/2020 7:49 AM Procedure: EP CARDIOVERSION Case Time: 07/07/2020 7: 49 AM Surgeon: Jean Delacruz Jr., MD Signed []Hide copied text []Hover for details Cardioversion Operative Note Donell Phelan Tori Sigala, [id number] 80 y.o. male 07/07/2020; [facility] WT CATH AOD PROC RM 1 Procedure(s): EP CARDIOVERSION Tolerated procedure well Condition: stable Complications: None; patient tolerated the procedure well. Findings: The patient wa s identified and consent reconfirmed prior to the procedure The baseline rhyth m was atrial fibrillation Anesthesia was giv en When the patient w as adequately sedated, synchronized DC CVN was performed converting the patie nt to sinus The patient awoke without sequelae Procedure Details See above Pre-op Diagnosis: Persistent atrial fibrillation (HCC) [I48.19] Post-Op Diagnosis Codes: * Persistent atrial fibrillation (HCC) [I48.19] Surgeon(s) and Role: * Jean Delacruz Jr., MD - Primary Anesthesia: Monitor Anesthesia Care Blood Products Administered: none Estimated Blood Loss: 0 mL Sheath/IV: No LDAs Documented Specimens: * No specimens in log * Grafts/Implants: None Jean Delacruz Jr., MD Date: 07/07/2020 Time: 8:10 AM Jean Delacruz Jr., MD [facility] Skill Labor Cardiac Electrophysiology Lab [facility] Elected [place] Chair, Department of Cardiology Office [phone] Performing Organization Address City/[facility] Phon e Number [facility] [address] [place] [address], Estimated GFR (07/07/2020 6:39 AM CDT)Only the most recent of3 resultswithin the time period is included. Pathologist [facility] Estimated GFR 71 mL/min/1.73 [facility] Comment: m2 HOSPITAL Catergory Units Interpretation G1 [...] in 2014. Specimen Blood Performing Organization Address City/[facility] Phon e Number [facility] DEPARTMENT OF PATHOLOGY AND [address] [place] [phone] GENOMIC MEDICINE [address] [address] POC panel (07/07/2020 6:39 AM CDT) POC sodium 140 135 - 148 [facility] mmol/L [facility] POC potassium 4.4 3.5 - 5.0 [facility] mmol/L [facility] POC chloride 104 99 - 109 [facility] mmol/L [facility] POC CO2 24 24 - 31 mmol/L [facility] POC glucose 121 (H) 65 - 99 mg/dL [facility] POC BUN 27 (H) 8 - 24 mg/dL [facility] POC creatinine 1.0 0.7 - 1.2 [facility] mg/dl [facility] POC hematocrit 46 41 - 51 % [facility] POC anion gap 18 8 - 20 mmol/L [facility] Comment: HOSPITAL Assistant Branch Manager Name: Noy Schroeder Device ID: [id number] Specimen Performing Organization Address [facility] Phon e Number [facility] DEPARTMENT OF PATHOLOGY AND [address] [place] [address] [phone] [address] ECG Pre/Post Op (07/07/2020 5:49 AM CDT) Pathologist Sig nature Ventricular rate 63 [facility] Atrial rate 66 [facility] MUSE QRSD interval 98 [facility] QT interval 450 [facility] QTC interval 460 [facility] MUSE QRS axis 1 26 [facility] T wave axis 78 [facility] MUSE EKG impression Atrial [facility] MUSE fibrillation-Electronic ally Signed By Anton Delacruz MD ([id number]) on 07/07/2020 7:56:05 AM Specimen Narrative Performed At This result has an attachment that is no t available. Performing Organization Address [facility] Phon e Number [facility] MUSE [address] [place] [address] Prothrombin time with INR (07/03/2020 10:59 AM CDT) Prothrombin time 15.4 (H) 11.5 - 14.5 [facility] INR 1.2 EDDY Comment: SIKHISM The International Normalized Ratio (INR) is a [facility] HOSPITAL monitoring tool for patients who are stable on oral anticoagulant therapy. An INR of 2.0-3.0 is suggested for deep vein thrombosis/pulmonary embolism. Specimen Blood Performing Organization Address [facility] Phon e Number [facility] DEPARTMENT OF PATHOLOGY AND [address] [place] [address] [phone] [address] CBC with platelet and differential (07/03/2020 10:59 AM CDT) WBC 7.81 4.50 - 11.00 [facility] k/uL [facility] RBC 4.76 4.40 - 6.00 [facility] m/[facility] HGB 14.0 14.0 - 18.0 [facility] g/dL HOSPITAL HCT 44.2 41.0 - 51.0 % [facility] MCV 92.9 82.0 - 100.0 [facility] MCH 29.4 27.0 - 34.0 pg [facility] MCHC 31.7 31.0 - 37.0 [facility] g/dL [facility] RDW - SD 49.1 37.0 - 55.0 fL [facility] MPV 9.2 8.8 - 13.2 fL [facility] Platelet count 305 150 - 400 k/uL [facility] Nucleated RBC 0.00 /100 WBC [facility] Neutrophils 75.8 (H) 39.0 - 69.0 % [facility] Lymphocytes 11.1 (L) 25.0 - 45.0 % [facility] Monocytes 9.6 0.0 - 10.0 % [facility] Eosinophils 2.3 0.0 - 5.0 % [facility] Basophils 0.8 0.0 - 1.0 % [facility] Immature granulocytes 0.4Comment: 0.0 - 1.0 % [facility] granulocytes" (promyelocytes , myelocytes, metamyelocytes ) Specimen Blood Performing Organization Address City/[facility] Phon e Number [facility] DEPARTMENT OF PATHOLOGY AND [address] [place] [address] [phone] [address] Magnesium level (07/03/2020 10:59 AM CDT) Pathologist Sig nature Magnesium 2.1 1.6 - 2.4 mg/dL [facility] L Specimen Blood Performing Organization Address City/[facility] Phon e Number [facility] DEPARTMENT OF PATHOLOGY AND [address] [place] [address] [phone] [address] Comprehensive metabolic panel (07/03/2020 10:59 AM CDT) Sodium 138 135 - 148 [facility] mEq/L [facility] Potassium 5.5 (H) 3.5 - 5.0 [facility] mEq/L [facility] Chloride 100 98 - 112 [facility] mEq/L [facility] CO2 27 24 - 31 mEq/L [facility] Anion gap 11@ANIO 7 - 15 mEq/L [facility] BUN 25 (H) 8 - 23 mg/dL [facility] Creatinine 1.20 0.70 - 1.20 [facility] mg/dL HOSPITAL Glucose 106 (H) 65 - 99 mg/dL [facility] Calcium 10.1 8.8 - 10.2 [facility] mg/dL [facility] Protein 8.0 6.3 - 8.3 [facility] Comment: g/dL HOSPITAL - 4.6-7.0 g/dL 1 week 4.4-7.6 g/dL 7 months-1year 5.1-7.3 g/dL 1-2 years 5.6-7.5 g/dL >3 years 6.0-8.0 g/dL 18-150 6.3-8.3 g/dL Albumin 3.5 3.5 - 5.0 [facility] g/dL [facility] A/G ratio 0.8 0.7 - 3.8 [facility] Alkaline phosphatase 129 40 - 129 U/L [facility] AST 28 10 - 50 U/L [facility] ALT 39 5 - 50 U/L [facility] Total bilirubin 0.7 0.0 - 1.2 [facility] mg/dL HOSPITAL Specimen Blood Performing Organization Address [facility] Phon e Number [facility] DEPARTMENT OF PATHOLOGY AND [address] [place] [address] 0 [place] [address] COVID-19 qualitative PCR (07/03/2020 10:50 AM CDT) Interpretation Negative results do not prec lude 2019-nCoV infection and should not be used as the sole basis for treatment or other patient management decisions. Negative results must be combined with clinical observations, patient history, and epidemiological EDDY information. [facility] COVID-19 qualitative Not-Detected Not-Detecte EDDY PCR result d [facility] COVID-19 qualitative See link below for EDDY PCR PDF Lab SIKHISM ReportComment: Case HOSPITAL Number: [id number] Specimen Nasopharyngeal swab Performing Organization Address City/[facility] Phon e Number [facility] DEPARTMENT OF PATHOLOGY AND [address] [place] [address] Cv cta pre afib pulmonary vein mapping (2020 10:53 AM CDT) Specimen Narrative Performed At This result has an attachment that is no t available. [employer] [employer] Nuclear Cardiology and Card iac CT [address] [facility], [place] [address] Department Number: CTA Chest Non-Coronary with Contr ast Report Pat.Name: DONELL PERSAUD at.ID: [id number] St.Date: 2020 Refer.MD: JEAN DELACRUZ MD Exam Time: 10:30:00 AM Study Type:CTA Chest Non-Coronary W Contrast Height: 73in Weight: 191lb BSA: 2.11 m2 Age: 7 1940,80Y Sex: MALE BP: 154/90 HR: 59 bpm Nuclear Tech:RT Etelvina(R)(CT) Pat. Stat.:Outpatient Tape Vol: 25.29, CPT - 4: CTA Coronary Arteries - 77981 (Please ad d FFR Charges if Performed), CTA Chest non-coronary - 66790 Nuclear Event ID:[id number] Order ID: [id number] Reason for Study:Coronary Artery Disease, A-Fib History / Clinical:COPD, Hypertension, CABG 2016 Procedures: CT Prospective (Intervals), CT Flash Mode (Systolic Phase), CT Flash Mode with Planning Scan Race: C SUMMARY: Technique: IV contrast was administered and sequential 0.[address] cuts were obtained through the chest using the Siemens Wheely jean paul Force CT scanner. Image post-processing consisting of multiplan ar and 3D reconstructions were performed using the [place] workstation. Interactive image viewing, volumetric dis play [...] . No evidence of contrast in the UARELIANO during contrast and delay imagi ng . No clot over the atrial surface of the clip . Please refer to the separate radiology report in Epic of non-cardiovascular findings. STUDY QUALITY The study quality is excellent. COMMENTS None. FINDINGS: Signed 04/22/2020 5:15:33 PM Dia Fuentes MD Revised Procedure Note Interface, Radiology Results In - 2019 9:08 AM CDT Nuclear Cardiology and Cardiac CT [address] [place] [address] Department Number: CTA Chest Non-Coronary wit h Contrast Report Pat.Name: DONELL PERSAUD Pat.I D: [id number] .Date: 2020 Refer .MD: JEAN DELACRUZ MD [...] Chest non-coronary - 712 75 Nuclear Event ID:[id number] Order ID: [id number] Reason for Study:Coronary Artery Disease , A-Fib History / Clinical:COPD, Hypertension, C ABG 2015 Procedures: CT Prospective (Intervals), CT Flash Mode (Systolic Phase), CT Flash Mode with Planning Scan Race: C SUMMARY: Technique: IV contrast was administered and sequential 0.[address] cuts were obtained through the chest using th e Siemens Somatom Force CT scanner. Image post-processing consistin g of multiplanar and 3D reconstructions were performed using the [employer] workstation. Interactive image viewing, volumetric display and [...] The posterolateral is a 3.0 mm artery ich has moderate calcified and non-calcified atherosclerotic [...] additionally a severe stenos is of the hughes LAD. The BUSCH to LAD is patent. [...] Dia Fuentes MD Revised Performing Organization Address City/State/ZIP Code Phon e Number [facility] [address] [place] [address] POC creatinine (2020 10:09 AM CDT) POC creatinine 1.0 0.7 - 1.2 [facility] Comment: mg/dl HOSPITAL Assistant Branch Manager Name: Shazia Haley Device ID: [id number] Specimen Blood Performing Organization Address City/State/ZIP Code Phon e Number [facility] DEPARTMENT OF PATHOLOGY AND [address] [place], [place] [phone] GENOMIC MEDICINE [facility] [address] [place] [address] after 07/27/2019 Insurance Payer Benefit Plan / Subscriber ID Effective Dates Phone Addre ss Type Group HUMANA MEDICARE HUMANA MEDICARE [id number] 2018-Present PPO PPO/PFFS/ERS MCR JAGUAR Sigala (Home) [address], [place] [address] Advance Directives For more information, please contact: [phone] Type Date Recorded 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
--- OUTSIDE RECORDS SUMMARY | 2020-07-27 08:58 | XMS REPORT | Continuity of Care Document ---
:1940 Author Organization [employer] [place] 100e Care Team Providers Name Role Phone [facility] [employer] Unavailable Un available Problems Problem Status Onset Classification Date Comments Sourc e Date Reported FOLLOW UP Active 11/26/[address] AFIB Active 12/29/[address] CCL/*MAC Active 12/29/19 [facility] ANESTHESIA*/CARDIO 16 [facility] VERSION/DX: A Center LSA Active 10/23/[address] HOSPITAL FOLLOW UP Active 10/22/[address] A FIB Active 09/29/[address] INTITAL CONSULT Active 09/22/[address] POST TPA Active 09/19/[address] CVA Active 09/19/[address] ELLE BILLING Active 09/19/20 [facility] LFLT #[id number] [address] [place] [address] Atrial Resolved Problem 02/21/2017 [facility] fibrillation Medical (disorder) [place] 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 (disorder) [facility], [facility] 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[facility] obstructive lung Med ical disease (disorder) [place], [facility] Diabetes mellitus Resolved Problem 02/21/2017 [facility] (disorder) [facility], [facility] Hypertensive Resolved Problem 02/21/2017 [place] disorder, systemic [facility] arterial [place], (disorder) [facility] Cerebrovascular Resolved Problem 02/21/2017 [facility] accident Medical (disorder) [place], [facility] S/P ADMN TPA IN Active [facility] ex DIFF FAC W/N LAST Me dical 24 HR Center MEDICAL SERVICES Active [facility] NOT AVAILABLE IN Med ical HOME Center UNSPECIFIED ATRIAL Active [facility] ENCNTR FOR GENERAL Active [facility] [place] ADULT MEDICAL EXAM M edical W/ Center Medications Medication Details Route Status Patient Ordering Order Source Instructions Provider Date bumetanide 1 mg 1 mg = 1 tab, Active [place] oral tablet PO, BID, # 180 2017 Medic al tab, 3 Center Refill(s), Pharmacy: [facility]/pharmacy #[id number] nebivolol 10 MG 10 mg = 1 tab, Active 02/18/ [facility] [place] Oral Tablet PO, Daily 2016 Medical [Bystolic] Center Microencapsulated 20 mEq = 1 tab, Active Potassium Chloride PO, BID, # 180 2017 Center 20 MEQ Extended tab, 3 for Adv Release Oral Tablet Refill(s), [facility] [Klor-Con] Pharmacy: Failure [facility]/pharmacy #[id number] nebivolol 5 MG Oral 5 mg [...] Failure 240 tab, 6 Refill(s), Pharmacy: [id number], Patient is due for follow up appointment bumetanide 0.5 mg 2 mg = 4 tab, Active oral tablet PO, BID, 2016 Center patient is due for Adv for follow up Heart appointment, # Failure 240 tab, 0 Refill(s), Pharmacy: [facility]/pharmacy #[id number], Patient is due for follow up appointment sucralfate 1 g oral 1 gm = 1 tab, Active [facility] tablet PO, QID-Before 2016 Medical Meals, 0 Center Refill(s) AMIODarone 200 mg 200 mg = 1 tab, Active [place] oral tablet PO, Daily, 0 2015 Medical Refill(s) Center nebivolol 5 MG Oral 5 mg = 1 tab, Active [facility] Tablet [Bystolic] PO, Daily, 0 2015 edical Refill(s) [place] Sucralfate 100 1 gm = 10 mL, Active [place] MG/ML Oral PO, QID-Before 2015 Medica l Suspension Meals, 0 [place] [Carafate] Refill(s) bumetanide 0.5 mg 1 mg = 2 tab, Active [facility] oral tablet PO, BID, 0 2015 Medical Refill(s) [place] bumetanide 0.5 mg 1 mg = 2 tab, Active [place] oral tablet PO, BID 2016 [facility] Center Potassium Chloride 20 mEq = 1 tab, Active 10/29 [place] 20 MEQ Extended PO, BID 2016 Medical Release Tablet [place] [Klor-Con] Metolazone 2.5 MG 2.5 mg = 1 tab, Active [facility] Oral Tablet PO, Q-Tu and 2016 Medical Th, # 30 tab, 1 Center Refill(s) polyethylene glycol 17 gm, PO, Active 10/20/ [facility] [place] 3350 oral powder Daily, # 527 2016 Me dical for reconstitution gm, 3 Refill(s) [place] senna 8.6 mg oral 8.6 mg = [...] Dose 81 = 1 tab, PO, Active [facility] mg oral tablet Daily, # 90 2016 Medic al tab, 3 Center Refill(s) AMIODarone 200 mg 200 mg = 1 tab, Active [facility] oral tablet PO, BID, # 90 2016 Medica l tab, 3 Center Refill(s) bumetanide 0.5 mg 2 mg = 4 tab, Inactive [place] oral tablet PO, BID, 0 2016 Medical Refill(s) Center AMIODarone 200 mg 200 mg = 1 tab, Inactive 10/20 [facility] oral tablet PO, BID, 0 2016 Medical Refill(s) Center potassium chloride 10 mEq = 50 mL, Inactive 09/27 [facility] IVPB, PRN, PRN 2016 Medical Abnormal [...] Center Metolazone 2.5 MG Notes: (Same Inactive [facility] Oral Tablet as: Zaroxolyn) 2016 Medic al Center Bumex Notes: (Same Inactive [facility] As: Bumex) 2016 Medical Center Diuril Notes: (Same Inactive [facility] As: Diuril 2016 Medical Sodium) Center Diuril 250 mg, Route: Inactive [facility] PO, ONCE, 2016 Medical Dosing Weight Center 101.007, kg, Start date: 10/18/15 18:30:00, Stop date: 10/18/15 18:30:00 Diuril Sodium + Notes: (Same Inactive [facility] Sodium Chloride As: Diuril 2016 Medic al 0.9% IV 50 mL Sodium) [place] Potassium Chloride Notes: (Same No Longer [facility] 20 MEQ Extended as: K-Dur 20) Active 2015 Me dical Release Tablet "Do Not Crush" Ce nter With food and full glass of water Diuril Notes: (Same Inactive [facility] As: Diuril 2016 Medical Sodium) [place] bumetanide 10 mg Notes: (Same No Longer [facility] as: Bumex) Active 2016 [facility] Center Venofer Notes: Each 5ml No Longer [place] contains 100mg Active 2015 Medical elemental iron. Center Mix with NS (Same as:Venofer) Administer IV only. MEDICATION WASTE Product Size: 100 mg Product Wasted: ___ mg Aspirin Notes: Do not No Longer [facility] crush or chew. Active 2015 Medical (Same As: [place] Ecotrin) heparin Notes: porcine No Longer [facility] s heparin Active 2016 [facility] Center potassium phosphate Notes: (Same No Longer 10/13 [facility] + Sodium Chloride as: K Active [...] stir. potassium chloride Notes: (Same No Longer [facility] as: KCL) Active 2015 Medical Infuse over 2 Center hours. Magnesium Sulfate 2 gm, 50 mL, No Longer [place] Route: IVPB, Active 2015 Medical Drug form: INJ, Center PRN, Dosing Weight 101.007, kg, PRN Abnormal Lab Result, For NON-ICU Patients Only., Start date: 10/13/15 11:41:00, Duration: 30 day, Stop date: 11/12/15 11:40:00 sodium phosphate + 30 mmol, 10 mL, No Longer [place] Sodium Chloride Route: IVPB, Active 2015 Med ical 0.9% IV 250 mL PRN, Dosing Cente r Weight 101.007, kg, PRN Abnormal Lab Result, For NON-ICU Patients Only., Start date: 10/13/15 11:41:00, Duration: 30 day, Stop date: 11/12/15 11:40:00 Calcium Gluconate 2 gm, 20 mL, No Longer [place] Route: IVPB, Active 2015 Medical PRN, Dosing Center Weight 101.007, kg, PRN Abnormal Lab Result, For NON-ICU Patients Only., Start date: 10/13/15 11:41:00, Duration: 30 day, Stop date: 11/12/15 11:40:00 Magnesium Oxide Notes: (Same No Longer H [place] as: Mag-Ox 400) Active 2015 [facility] Magnesium oxide [place] [id number] elemental magnesium Dose=____mg magnesium oxide (___mg elemental magnesium) bumetanide 10 mg Notes: (Same No Longer [place] as: Bumex) Active 2015 Medical [place] Trazodone Notes: (Same [place] Long[place] As: Desyrel) Active 2016 Medical [place] Melatonin 3 MG Notes: (Same No Longer [place] Extended Release as: Melatonin) Active 2015 [facility] Tablet Center Lasix Notes: (Same No Longer [place] as: Lasix) Active 2015 Medical MEDICATION Center WASTE Product Size: 40 mg Product Wasted: ___ mg Maalox Advanced Notes: No Longer [place] Regular Strength (aluminum Active 2015 Medic al SUSP hydroxide-magne Center sium hyd-simethicone [id number]/5m l 30 ml ud ALEISHA) Fentanyl Notes: (Same No Longer [place] as: Sublimaze) Active 2016 Medical Preservative Center free. Lasix Notes: (Same No Longer [facility] as: Lasix) Active 2016 Medical MEDICATION Center WASTE Product Size: 40 mg Product Wasted: ___ mg Lasix Notes: (Same No Longer [facility] as: Lasix) Active 2016 Medical MEDICATION Center WASTE Product Size: 40 mg Product Wasted: _0__ mg Miralax Notes: Dissolve No Longer [place] in 8 oz of Active 2016 Medical water or juice. Center (Same as: Miralax) Bystolic Notes: (same No Longer [facility] as: Bystolic) Active 2016 Medical Center Potassium Chloride Notes: (Same No Longer [facility] 20 MEQ Extended as: K-Dur 20) Active 2015 Me dical Release Tablet "Do Not Crush" Ce nter With food and full glass of water 24 HR Nifedipine 60 Notes: (Same No Longer 10/08 [facility] MG Extended Release as: Adalat CC, Active 2015 Medical Tablet Procardia XL) Center Give on empty stomach. Take 1 hour before or 2 hours after meal; "Avoid grapefruit and grapefruit juice". Do not crush molasses Notes: (Same Inactive [facility] as:Molasses) 2016 Medical Center Simethicone Notes: (Same [place] as: Mylicon) Active 2016 Medical Center Dulcolax Laxative Notes: (Same No Longer [facility] As: Dulcolax, Active 2016 [facility] Bisco-Lax) Center Bystolic Notes: (same Inactive [facility] as: Bystolic) 2016 Medical Center Magnesium Oxide Notes: (Same Inactive [facility] as: Mag-Ox 400) 2016 Medical Magnesium oxide Center [id number] elemental magnesium Dose=____mg magnesium oxide (___mg elemental magnesium) potassium chloride Notes: (Same Inactive [facility] as: K-Dur 20) 2016 Medical "Do Not Crush" Center With food and full glass of water Calcium Carbonate Notes: (Same Inactive [facility] As: Tums) 2016 Medical Calcium Center [...] 2016 Medical Center carvedilol Notes: Give Inactive [facility] with food. 2016 Medical (Same As: Center Coreg) Acetaminophen 325 Notes: Do not No Longer [facility] MG / Hydrocodone exceed 4gm/day Active 2016 Medical Bitartrate 10 MG of Center Oral Tablet [[place] acetaminophen. 10/325] (Same as: [place] 325/10) senna 8.6 mg oral Notes: (Same No Longer [facility] tablet as: Senokot) Active 2016 Medical [...] Longer [place] as: Dobutrex) Active 2015 [facility] Final conc = 4 Center mg/ml. Premix solution. Protect from light. pantoprazole Notes: For IV No Longer [facility] push Active 2015 [facility] reconstitute [place] with 10 ml 0.9% sodium chloride and push over 2 minutes. (Same as: Protonix) Docusate Sodium 100 Notes: (Same No Longer 10/01 [facility] MG Oral Capsule as: Colace) (Do Active 2015 [facility] [Colace] Not Crush) [place] Aspirin 325 MG Notes: Take No Longer [place] Enteric Coated with food. Active 2015 Medica l Tablet [place] Aspirin 300 MG Notes: Inactive [facility] Rectal Suppository Refrigerate. 2016 [facility] Dopamine Notes: (Same Inactive [facility] as: Intropin) 2016 Medical Administer by Center either central venous catheter or peripherally-in serted central catheter (PICC) line. Final conc = 3.2 mg/ml. Premix solution. sodium bicarbonate Notes: (sodium Inactive 10/01 [place] 8.4% bicarb 8.4% (1 2015 Medical mEq/ml) 50 ml [facility]) Sodium Chloride 1,000 mL, 1,000 Inactive [facility] 0.154 MEQ/ML ml/hr, Infuse 2016 Medic al Injectable Solution Over: 1 hr, [place] Route: IV, 1,000, Drug form: INJ, ONCE, Priority: STAT, Dosing Weight 97.273 kg, Start date: 10/01/15 1:52:00, Duration: 1 doses or times, Stop date: 10/01/15 1:52:00 sodium bicarbonate Notes: (sodium Inactive 10/01 [facility] 8.4% bicarb 8.4% (1 2015 Medical mEq/ml) 50 ml [facility]) Dexmedetomidine Notes: (Same No Longer [facility] as: Precedex) Active 2015 [facility] calcium gluconate + 3,000 mg, 30 Inactive [facility] Sodium Chloride mL, Route: 2015 Medic al 0.9% IV 100 mL IVPB, ONCE, Cente r Start date: 09/30/15 22:41:00, Stop date: 09/30/15 22:41:00 ceFAZolin (SCIP) Notes: Same as: No Longer 10/01 [place] Ancef Active 2015 [facility] sodium bicarbonate Notes: (sodium Inactive 10/01 [place] 8.4% bicarb 8.4% (1 2015 Medical mEq/ml) 50 ml Center VL) atorvastatin Notes: (Same No Longer [place] as: Lipitor) Active 2015 [facility] Center Vancomycin 6.67 2001 mg: No Longer [place] MG/ML Injectable infuse over 2.5 Active 2015 Medical Solution hours Center MEDICATION WASTE Product Size: 1000 mg Product Wasted: ___ mg Sodium Chloride 1,000 mL, 1,000 Inactive [place] 0.154 MEQ/ML ml/hr, Infuse 2015 Medic al [...] ONLY potassium chloride Notes: (Same No Longer [place] as: Potassium Active 2015 Medical Chloride) Center Calcium Gluconate 1 gm, 10 mL, No Longer [place] Route: IVPB, Active 2015 Medical PRN, Dosing Center Weight 97.273, kg, PRN Abnormal Lab Result, Start date: 09/30/15 19:44:00, Duration: 30 day, Stop date: 10/30/15 19:43:00, FOR ICU USE ONLY Magnesium Oxide Notes: (Same No Longer [place] as: Mag-Ox 400) Active 2015 Medical Magnesium oxide Center [id number] elemental magnesium Dose=____mg magnesium oxide (___mg elemental magnesium) Calcium Carbonate Notes: (Same No Longer [place] 500 MG Chewable As: Tums) Active 2015 Medica l Tablet Calcium Center Carbonate 500 mg = 200 mg elemental calcium Dose = mg calcium carbonate ( mg elemental calcium) potassium phosphate Notes: (Same No Longer 10/01 [place] + Sodium Chloride as: K Active 2015 Medica l 0.9% IV 250 mL Phosphate.) 1 Ce nter mMol phoshate has 1.47 mEq potassium Infuse over 4 hours Glucagon 1 mg, Route: No Longer [place] IM, Drug form: Active 2015 Medical PDR/INJ, PRN, Center Dosing Weight 97.273, kg, PRN Blood Glucose Results, Start date: 09/30/15 19:43:00, Duration: 30 day, Stop date: 10/30/15 19:42:00 Insulin regular 60 units) No Longer [place] Stable for 28 2015 Medical days at room Center temperature Expires in days from D ate Dextrose 50% 12.5 gm, 25 mL, No Longer [facility] Syringe Route: IVP, Active 2015 Medical Drug Form: INJ, Center Dosing Weight 97.273, kg, PRN, PRN Blood Glucose Results, Start date: 09/30/15 19:43:00, Duration: 30 day, Stop date: 10/30/15 19:42:00 Isolyte S PH 7.4 Notes: (Same No Longer [place] 1,000 mL as: Isolyte S Active 2015 Medical PH 7.4) Center Fentanyl 1,000 No Longer [place] microgram, 20 Active 2015 Medical mL, Rate: [...] No Longer [place] Narcan Active 2015 [facility] Center Ondansetron 0.8 Notes: (Same No Longer [facility] MG/ML Oral Solution as: Zofran) Active 2015 [facility] [Zofran] Center Acetaminophen 325 Notes: Do not No Longer [place] MG / Hydrocodone exceed 4gm/day Active 2015 [facility] Bitartrate 10 MG of Center Oral Tablet acetaminophen. (Same as: [place] 325/10) Fentanyl Notes: (Same No Longer [place] as: Sublimaze) Active 2015 [facility] Preservative Center free. Acetaminophen Notes: Do not No Longer [place] exceed 4 Active 2015 Medical gm/day. (Same Center as: Tylenol) protamine (ANES) Route: IV, Drug Inactive [place] form: INJ, 2015 Medical ONCE, Stop Center date: 09/30/15 16:31:00 DOPamine (ANES) Route: IV, Drug Inactive [place] (ANES) form: INJ, 2015 Medical Start date: [place] 09/30/15 16:10:00, Stop date: 09/30/15 17:10:00 acetaminophen Route: IV, Drug Inactive [place] (ANES) (ANES) form: INJ, 2015 Medical Start date: [place] 09/30/15 15:40:00, Stop date: 09/30/15 16:40:00 Ancef [...] Final No Longer [place] concentration: Active 2015 [facility] Ropivacaine Center 0.2% 400 ml Ancef 2 [...] No Longer [place] as: Cozaar) Active 2015 [facility] Aspirin Notes: Take Inactive [place] with food. 2016 [facility] PlasmaLyte A PH-7.4 Route: IV, Inactive [place] (ANES) (ANES) Total Volume: 2016 Medi prabhjot 1,000, Start Center date: 09/30/15 8:20:00, Stop date: 09/30/15 9:20:00 Clonidine Notes: (Same No Longer [place] Hydrochloride 0.1 As: Catapres) Active 2015 Medical MG Oral Tablet Center atorvastatin Notes: (Same No Longer [place] As: Lipitor) Active 2015 [facility] Magnesium Sulfate 2 gm, 50 mL, No [...] 19:18:00 Magnesium Oxide Notes: (Same No Longer [facility] as: Mag-Ox 400) Active 2015 [facility] Magnesium oxide Center [id number] elemental magnesium Dose=____mg magnesium oxide (___mg elemental magnesium) potassium phosphate Notes: (Same No Longer 09/30 [facility] + Sodium Chloride as: K Active 2015 Medica l 0.9% IV 250 mL Phosphate.) 1 Ce nter mMol phoshate has 1.47 mEq potassium Infuse over 4 hours sodium phosphate + 15 mmol, 5 mL, No Longer [facility] Sodium Chloride Route: IVPB, Active 2015 Med ical 0.9% IV 250 mL PRN, Dosing Cente r Weight 97.273, kg, PRN Abnormal Lab Result, For NON-ICU Patients Only., Start date: 09/29/15 19:19:00, Duration: 30 day, Stop date: 10/29/15 19:18:00 potassium chloride Notes: (Same No Longer [facility] as: KCL) Active 2015 Medical Infuse over 2 Center hours. potassium Notes: (Same [place] Long[place] phosphate-sodium as: Active 2015 Medical phosphate 250 Neutra-Phos) Cente r mg-278 mg-164 mg Each 1.25 gm oral powder pkt has 250mg phosphorous. Mix w/2.5oz water and stir. Insulin regular 60 units) No Longer [facility] Stable for 28 Active 2015 Medical days at room Center temperature Expires in days from D ate Acetaminophen 325 Notes: (Same No Longer [facility] MG / Hydrocodone as: [place] Active 2015 Medic al Bitartrate 5 MG 325/5) Do not C enter Oral Tablet exceed 4gm/day of acetaminophen. Ondansetron Notes: (Same No Longer [place] [facility] as: Zofran) Active 2015 Medical MEDICATION Center WASTE Product Size: 4 mg Product Wasted: ___ mg Sodium Chloride 250 mL, 250 Inactive [place] 0.154 MEQ/ML ml/hr, Infuse 2016 Medic al Injectable Solution Over: 1 hr, [place] Route: IV, 250, Drug form: INJ, ONCE, Priority: Routine, Dosing Weight 97.818 kg, Start date: 09/29/15 16:49:00, Duration: 1 doses or times, Stop date: 09/29/15 16:49:00 Sodium Chloride 250 mL, Rate: No Longer [place] 0.9% (titrate) [address] for use Active 2015 [facility] mL with blood Center product administration, Dosing Weight 110.4, kg, Route: IV, Total Volume: 250, Start Date: 09/29/15 15:28:00, Duration: 30 day, Stop date: 10/29/15 15:27:00, Replace Every: 24 hr Lyrica Notes: (Same Inactive [facility] as: Lyrica) 2016 [facility] Lyrica Notes: (Same No Longer [facility] as: Lyrica) Active [address] [place] [address] Metformin 500 mg = 1 tab, Active 09/24[facility] [place] as hydrochloride 500 PO, Before 2014 Med ical MG Oral Tablet Dinner, # 30 Cent er tab, 0 Refill(s) Iohexol Notes: (same Inactive [facility] as:Omnipaque 2015 Medical 350). [place] atorvastatin 20 mg 20 mg = 1 tab, Active 09/22[facility] oral tablet PO, Bedtime, # 2015 Medic al 30 tab, 2 Center Refill(s) Physical Therapy See Active 09/22[facility] Juni s Instructions, 2015 Medical MISC, ONCALL, Center Evaluate and Treat _3__ times per week for __10__ weeks, # 30 unit, 0 Refill(s) Potassium Chloride 40 mEq, 2 tab, Inactive 09/22 [facility] [place] 20 MEQ Extended Route: PO, [...] 7:35:00 potassium chloride Notes: (Same No Longer [place] as: K-Dur 20) Active 2014 Medical "Do Not Crush" Center With food and full glass of water Clonidine Notes: (Same No Longer [facility] s Hydrochloride 0.1 As: Catapres) Active 2014 Medical MG Oral Tablet Center torsemide Notes: (Same [place] Long[place] As: Demadex) Active 2014 [facility] 24 HR Nifedipine 90 Notes: (Same No Longer 09/21 [place] MG Extended Release as:Adalat CC, Active 2014 [...] Center minutes Potassium Chloride Notes: (Same Inactive [place] 1.33 MEQ/ML Oral as: Potassium 2014 edical Solution Chloride) Center Losartan Notes: (Same No Longer [facility] as: Cozaar) Active 2014 Medical [place] Bystolic Notes: (same No Longer [facility] as: Bystolic) Active 2014 [facility] 24 HR Nifedipine 90 90 mg, 1 tab, Inactive 09/21 [place] MG Extended Release Route: PO, Drug 2014 Medical Tablet form: ERTAB, Center Daily, Dosing Weight 110.4, kg, Priority: NOW, Start date: 09/21/15 4:09:00, Duration: 30 day, Stop date: 10/20/15 9:00:00 heparin Notes: porcine No Longer [place] heparin Active 2014 [facility] Aspirin Notes: Take No Longer [place] with food. Active 2014 Medical Center torsemide 20 mg 20 mg = 1 tab, Active H [place] oral tablet PO, Daily, # 30 2014 [facility] prabhjot tab, 1 Center Refill(s) nebivolol 10 MG 20 mg = 2 tab, Active H [place] Oral Tablet PO, Daily, # 60 2014 [facility] prabhjot [Bystolic] tab, 0 Center Refill(s) 24 [...] mg = 1 tab, No Longer 09/21 [place] oral tablet PO, Bedtime, # Active 2014 Medic al 90 tab, 1 Center Refill(s) Aspirin Low Dose 81 = 1 tab, PO, Active [facility] mg oral tablet Daily, # 30 2014 Medic al tab, 1 Center Refill(s) atorvastatin Notes: (Same No Longer [place] As: Lipitor) Active 2014 [facility] Center Clonidine 0.1 mg = 1 tab, Active [place] Hydrochloride 0.1 PO, TID, 0 2014 Med ical MG Oral Tablet Refill(s) [place] losartan 100 mg 100 mg = 1 tab, Active [facility] oral tablet PO, Daily, # 30 2014 [facility] tab, 0 Center Refill(s) Metformin 500 mg = 1 tab, No Longer [place] hydrochloride 500 PO, Before Active 2014 Med ical MG Oral Tablet Dinner, # 30 Cent er tab, 0 Refill(s) clopidogrel 75 mg 75 mg = 1 tab, No Longer 09/20 [facility] oral tablet PO, Daily, # 30 Active 2014 [facility] prabhjot tab, 0 Center Refill(s) Saline Flush 0.9% Notes: (Same No Longer [place] as: BD Active 2014 Medical Posiflush) Center Docusate Notes: (Same No Longer [facility] as: Colace) (Do Active 2014 Medical Not Crush) Center sennosides, LONG-TERM Notes: (Same No Longer 12/26/ M [facility] as: Senokot) Active 2014 Medical Center potassium chloride Notes: (Same Inactive [place] as: KCL) 2014 Medical Infuse no Center faster than 10 mEq/hr if given peripherally. magnesium sulfate 2 gm, 50 mL, Inactive [place] Route: IVPB, 2014 Medical Drug form: INJ, Center ONCE, Start date: 09/20/15 5:00:00, Stop date: 09/20/15 5:00:00 Hydralazine Notes: (Same [place] Long[place] as: Apresoline) Active 2014 Medical Push over 5 Center minutes potassium chloride Notes: (Same No Longer [facility] as: KCL) Active 2014 Medical Infuse over 2 Center hours. Alteplase 81 mg, Route: [place] IV, ONCE, 2014 Medical Dosing Weight Center 100, kg, For Stroke Infusion, Start date: 09/19/15 21:53:00, Stop date: 09/19/15 21:53:00 Regular Insulin, 60 units) No Longer [facility] Human 100 UNT/ML Stable for 28 Active 2014 edical Injectable Solution days at room Center temperature Expires in days from D ate Dextrose 50% 6.25 gm, 12.5 No Longer [place] Syringe mL, Route: IVP, Active 2014 Medical Drug Form: INJ, Center Dosing Weight 100, kg, PRN, PRN Abnormal Lab Result, Start date: 09/19/15 21:52:00, Duration: 30 day, Stop date: 10/19/15 21:51:00 Saline Flush 0.9% Notes: (Same No Longer [facility] as: BD Active 2014 Medical Posiflush) Center Acetaminophen Notes: Do not No Longer [facility] exceed 4 Active 2014 Medical gm/day. (Same Center as: Tylenol) Ondansetron Notes: (Same [place] Long[place] as: Zofran) Active 2014 Medical MEDICATION Center WASTE Product Size: 4 mg Product Wasted: __0_ mg Nicardipine Notes: Same as: No Longer [facility] Cardene Active 2014 Medical Concentration: [place] (0.2 mg /1 ml ) Labetalol 105 mmHg, No Longer [facility] Priority: Active 2014 Medical Routine, Start Center date: 09/19/15 21:50:00, Duration: 30 day, Stop date: 10/19/15 21:49:00 Bisacodyl Notes: (Same No Longer [facility] s As: Dulcolax, Active 2014 [facility] Bisco-Lax) Center Sodium Chloride 1,000 mL, Rate: No Longer [facility] 0.154 MEQ/ML 50 ml/hr, Active 2014 [facility] Injectable Solution Infuse over: 20 Center hr, Route: IV, Dosing Weight 100 kg, Total Volume: 1,000, Start date: 09/19/15 21:50:00, Duration: 30 day, Stop date: 10/19/15 21:49:00 Saline Flush 0.9% Notes: Same as: No Longer 08/27 [facility] BD Posiflush Active 2014 [facility] Sterile Center Allergies, Adverse Reactions, Alerts No Known Medication Allergies Immunizations Immunization Date Given Site Status Last Updated Comments Cassia rce influenza virus 07/27/2015 completed [facility] vaccine, live, [facility] virus 07/27/2015 completed [facility] vaccine, live, [facility] pneumococcal 07/27/2014 completed [facility] as 23-valent vaccine [facility] pneumococcal 07/27/2014 completed [facility] as 23-valent vaccine [facility] Results Order Name Results Value Reference Date Interpretation Comments Cassia rce Range CHEM PANEL Magnesium Lvl 2.4 1.8 - 2.4 10/20 [place] [facility] ELECTROLYTE AGAP 10.4 10.0 - 10/20 [place] S 20.0 [facility] ELECTROLYTE eGFR 57 10/20 Result [facility] S Comment: The Medical eGFR is [...] ELECTROLYTE CO2 34 24 - 32 10/20 [facility] ELECTROLYTE Chloride Lvl 98 95 - 109 10/20 [facility] ELECTROLYTE Potassium Lvl 3.4 3.5 - 5.1 10/20 [place] [facility] ELECTROLYTE Sodium Lvl 139 135 - 145 10/20 [facility] ELECTROLYTE Creatinine 1.24 0.50 - 10/20 [facility] S Lvl 1.40 [facility] ELECTROLYTE BUN 33 7 - 22 10/20 [facility] ELECTROLYTE Glucose Lvl 102 70 - 99 10/20 [facility] ELECTROLYTE Calcium Lvl 8.7 8.5 - 10.5 10/20 [facility] HEMATOLOGY Lymphocytes 14.3 20.0 - 10/20 [facility] 40.0 [facility] HEMATOLOGY Segs 73.3 45.0 - 10/20 [place] 75.0 [facility] HEMATOLOGY Lymphocytes # 1.8 1.0 - 5.5 10/20 [facility] HEMATOLOGY Eosinophils 2.6 0.0 - 4.0 10/20 [facility] HEMATOLOGY Monocytes 8.9 2.0 - 12.0 10/20 [facility] HEMATOLOGY Segs-Bands # 9.2 1.5 - 8.1 10/20 [facility] HEMATOLOGY Basophils 0.9 0.0 - 1.0 10/20 2015 [facility] HEMATOLOGY Monocytes # 1.1 0.0 - 0.8 10/20 [facility] HEMATOLOGY Basophils # 0.1 0.0 - 0.2 10/20 [facility] HEMATOLOGY Eosinophils # 0.3 0.0 - 0.5 10/20 [facility] HEMATOLOGY Platelet 303 133 - 450 10/20 [facility] HEMATOLOGY MPV 8.1 7.4 - 10.4 10/20 [facility] HEMATOLOGY RDW 17.4 11.5 - 10/20 14.5 [facility] HEMATOLOGY RBC 3.15 4.70 - 10/20 [place] 6.10 [facility] HEMATOLOGY WBC 12.5 3.7 - 10.4 10/20 [facility] HEMATOLOGY MCV 93.0 80.0 - 10/20 94.0 [facility] HEMATOLOGY MCH 30.4 27.0 - 10/20 31.0 [facility] HEMATOLOGY Hgb 9.6 14.0 - 10/20 18.0 [facility] HEMATOLOGY Hct 29.3 42.0 - 10/20 54.0 [facility] HEMATOLOGY MCHC 32.7 32.0 - 10/20 [place] 36.0 [facility] CHEM PANEL Phosphorus 4.0 2.5 - 4.5 10/19 [facility] CHEM PANEL Magnesium Lvl 2.4 1.8 - 2.4 10/19 [facility] CHEM PANEL eGFR 42 10/19 Result Comment: [...] PANEL CO2 32 24 - 32 10/19 [facility] CHEM PANEL AGAP 12.6 10.0 - 10/19 . [facility] CHEM PANEL Calcium Lvl 8.3 8.5 - 10.5 10/19 [facility] CHEM PANEL Chloride Lvl 96 95 - 109 10/19 [facility] CHEM PANEL BUN 28 7 - 22 10/19 [facility] CHEM PANEL Glucose Lvl 139 70 - 99 10/19 [facility] CHEM PANEL Potassium Lvl 3.6 3.5 - 5.1 10/19 [facility] CHEM PANEL Sodium Lvl 137 135 - 145 10/19 [facility] CHEM PANEL Creatinine 1.58 0.50 - 10/19 [facility] Lvl 1.40 [facility] CHEM PANEL Magnesium Lvl 2.5 1.8 - 2.4 10/19 [facility] ELECTROLYTE AGAP 12.5 10.0 - 10/19 S . [facility] ELECTROLYTE eGFR 59 10/19 [facility] Comment: The [facility] eGFR is Center calculated using the CKD-EPI [...] ELECTROLYTE BUN 23 7 - 22 10/19 [facility] ELECTROLYTE Glucose Lvl 109 70 - 99 10/19 [facility] ELECTROLYTE Sodium Lvl 140 135 - 145 10/19 s [facility] ELECTROLYTE Chloride Lvl 99 95 - 109 10/19 [place] [facility] ELECTROLYTE Potassium Lvl 3.5 3.5 - 5.1 10/19 [place] [facility] ELECTROLYTE Creatinine 1.20 0.50 - 10/19 [place] S Lvl 1.40 /2015 [facility] ELECTROLYTE Calcium Lvl 8.6 8.5 - 10.5 10/19 [place] [facility] ELECTROLYTE CO2 32 24 - 32 10/19 S [facility] HEMATOLOGY RDW 16.7 11.5 - 10/19 [place] 14.5 [facility] HEMATOLOGY MCHC 32.7 32.0 - 10/19 [place] 36.0 [facility] HEMATOLOGY MCH 30.4 27.0 - 10/19 [place] 31.0 [facility] HEMATOLOGY MCV 92.8 80.0 - 10/19 [place] 94.0 [facility] HEMATOLOGY Hct 31.3 42.0 - 10/19 [place] 54.0 [facility] HEMATOLOGY WBC 12.7 3.7 - 10.4 10/19 [facility] HEMATOLOGY RBC 3.38 4.70 - 10/19 [place] 6.10 [facility] HEMATOLOGY MPV 7.4 7.4 - 10.4 10/19 [facility] HEMATOLOGY Platelet 332 133 - 450 10/19 [facility] HEMATOLOGY Hgb 10.3 14.0 - 10/19 [place] 18.0 [facility] HEMATOLOGY Basophils # 0.1 0.0 - 0.2 10/19 [facility] HEMATOLOGY Eosinophils # 0.4 0.0 - 0.5 10/19 [facility] HEMATOLOGY Monocytes # 1.2 0.0 - 0.8 10/19 [facility] HEMATOLOGY Lymphocytes # 1.8 1.0 - 5.5 10/19 [facility] HEMATOLOGY Segs-Bands # 9.2 1.5 - 8.1 10/19 [facility] HEMATOLOGY Monocytes 9.4 2.0 - 12.0 10/19 [facility] HEMATOLOGY Lymphocytes 13.9 20.0 - 10/19 [place] 40.0 [facility] HEMATOLOGY Segs 72.8 45.0 - 10/19 [place] 75.0 [facility] HEMATOLOGY Eosinophils 3.0 0.0 - 4.0 10/19 [facility] HEMATOLOGY Basophils 0.9 0.0 - 1.0 10/19 [facility] CHEM PANEL Phosphorus 2.8 2.5 - 4.5 10/18 [facility] HEMATOLOGY Basophils # 0.2 0.0 - 0.2 10/18 [facility] HEMATOLOGY Segs 72.0 45.0 - 10/18 [place] 75.0 [facility] HEMATOLOGY Monocytes 9.1 2.0 - 12.0 10/18 [facility] HEMATOLOGY Eosinophils 3.0 0.0 - 4.0 10/18 [facility] HEMATOLOGY Lymphocytes 14.5 20.0 - 10/18 [place] 40.0 [facility] HEMATOLOGY Lymphocytes # 1.6 1.0 - 5.5 10/18 [facility] HEMATOLOGY Eosinophils # 0.3 0.0 - 0.5 10/18 [place] [facility] HEMATOLOGY Segs-Bands # 8.0 1.5 - 8.1 10/18 [facility] HEMATOLOGY Monocytes # 1.0 0.0 - 0.8 10/18 [facility] HEMATOLOGY Basophils 1.4 0.0 - 1.0 10/18 [facility] HEMATOLOGY MPV 7.8 7.4 - 10.4 10/18 [facility] HEMATOLOGY RDW 16.1 11.5 - 10/18 [place] 14.5 [facility] HEMATOLOGY Platelet 337 133 - 450 10/18 [facility] HEMATOLOGY RBC 3.09 4.70 - 10/18 [place] 6.10 [facility] HEMATOLOGY WBC 11.1 3.7 - 10.4 10/18 [facility] HEMATOLOGY MCHC 32.6 32.0 - 10/18 [place] 36.0 [facility] HEMATOLOGY MCV 92.1 80.0 - 10/18 [place] 94.0 [facility] HEMATOLOGY MCH 30.0 27.0 - 10/18 [place] 31.0 [facility] HEMATOLOGY Hgb 9.3 14.0 - 10/18 [place] 18.0 [facility] HEMATOLOGY Hct 28.5 42.0 - 10/18 [place] 54.0 [facility] CHEM PANEL Phosphorus 2.2 2.5 - 4.5 10/[address] CHEM PANEL Lactic Acid 1.5 0.5 - 2.2 10/14 [facility] s l [facility] CHEM PANEL AST 29 0 - 37 10/[address] CHEM PANEL Albumin Lvl 2.2 3.5 - 5.0 10/14 [facility] CHEM PANEL Total Protein 5.6 6.4 - 8.4 10/14 [facility] CHEM PANEL ALT 56 0 - 65 10/[address] CHEM PANEL Bili Total 1.1 0.2 - 1.3 10/14 [facility] CHEM PANEL Alk Phos 202 39 - 136 10/[address] CHEM PANEL Bili Direct 0.3 0.0 - 0.3 10/14 [facility] CHEM PANEL Bili Indirect 0.8 0.0 - 1.0 10/14 [facility] CHEM PANEL A/G Ratio 0.6 0.7 - 1.6 10/[address] CHEM PANEL Globulin 3.4 2.0 - 4.0 10/[address] URINE AND UA RBC 2 0 - 2 10/14 [facility] URINE AND UA WBC 1 0 - 5 10/14 [facility] [address] [place] [address] URINE AND UA Leuk Est Negative Negative 10/14 [facility] (10/14/15 12:34 AM) [facility] URINE AND UA Nitrite Negative Negative 10/14 [facility] (10/14/15 12:34 AM) [facility] URINE AND UA Blood Trace Negative 10/14 [facility] *ABN* /2015 [facility] (10/14/15 12:34 AM) Cente r URINE AND UA <=1.0 0.1 - 1.0 10/14 [facility] Urobilinogen mg/dL /2015 [facility] URINE AND UA Sq Epi None Seen 10/14 [facility] [address] [place] [address] URINE AND UA Hyal Cast 7 0 - 2 10/[address] URINE AND UA Mucus Few /LPF None Seen 10/14 [facility] STOOL /LPF /2015 [facility] URINE AND UA Spec Grav 1.007 <=1.030 10/14 [place] STOOL [facility] URINE AND UA Turbidity Clear Clear 10/14 [facility] STOOL (10/14/15 12:34 AM) /2015 [facility] URINE AND UA Color Yellow Yellow 10/14 [facility] STOOL *NA* /2015 Medical (10/14/15 12:34 AM) Cente r URINE AND UA pH 5.5 5.0 - 8.0 10/14 [facility] STOOL [facility] URINE AND UA Glucose Negative Negative 10/14 [facility] STOOL mg/dL mg/dL [facility] URINE AND UA Protein Negative Negative 10/14 [facility] STOOL mg/dL mg/dL /2015 [facility] URINE AND UA Bili Negative Negative 10/14 [facility] STOOL *NA* /2015 Medical (10/14/15 12:34 AM) Cente r URINE AND UA Ketones Negative Negative 10/14 [facility] mg/dL mg/dL /2015 [facility] ANEMIA Ferritin Lvl 285 22 - 275 10/13 [facility] ANEMIA % [place] 11 12 - 57 10/13 [facility] ANEMIA UIBC 203 110 - 370 10/13 [facility] STUDY [facility] ANEMIA Iron 24 45 - 160 10/13 [facility] STUDY [facility] ANEMIA TIBC 227 228 - 428 10/13 [facility] CHEM PANEL Lactic Acid 2.9 0.5 - 2.2 10/13 [place] [facility] HEMATOLOGY Sed Rate 18 0 - 15 10/13 [facility] IMMUNOLOGY C-REACTIVE 13.3 <=2.9 mg/L 10/13 [place] PROTE[place] [facility] CHEM PANEL ALT 89 0 - 65 10/11 [place] [facility] CHEM PANEL Albumin Lvl 2.3 3.5 - 5.0 10/11 [place] [facility] CHEM PANEL Total Protein 5.7 6.4 - 8.4 10/11 [place] [facility] CHEM PANEL Alk Phos 178 39 - 136 10/11 [place] [facility] CHEM PANEL AST 35 0 - 37 10/11 [facility] CHEM PANEL Bili Direct 0.3 0.0 - 0.3 10/11 [place] [facility] CHEM PANEL Bili Total 1.0 0.2 - 1.3 10/11 [facility] CHEM PANEL A/G Ratio 0.7 0.7 - 1.6 10/11 [facility]2015 [facility] CHEM PANEL Globulin 3.4 2.0 - 4.0 10/11 [facility]2015 [facility] CHEM PANEL Bili Indirect 0.7 0.0 - 1.0 10/11 [facility] CHEM PANEL A/G Ratio 0.7 0.7 - 1.6 10/10 [facility] CHEM PANEL Globulin 3.4 2.0 - 4.0 10/10 [facility]2015 [facility] CHEM PANEL Bili Indirect 0.5 0.0 - 1.0 10/10 [facility] CHEM PANEL AST 35 0 - 37 10/10 [facility] CHEM PANEL ALT 104 0 - 65 10/10 [facility] CHEM PANEL Bili Total 1.0 0.2 - 1.3 10/[address] CHEM PANEL Albumin Lvl 2.5 3.5 - 5.0 10/10 [facility] CHEM PANEL Total Protein 5.9 6.4 - 8.4 10/10 [facility] CHEM PANEL Alk Phos 180 39 - 136 10/[address] CHEM PANEL Bili Direct 0.5 0.0 - 0.3 10/10 [facility] HEMATOLOGY Sed Rate 12 0 - 15 10/[address] URINE AND UA Color Yellow Yellow 10/09 [facility] STOOL *NA* /2015 Medical (10/09/15 11:37 AM) Cente r URINE AND UA Turbidity Clear Clear 10/09 [facility] STOOL (10/09/15 11:37 AM) /2015 [facility] URINE AND UA Bili Negative Negative 10/09 [facility] STOOL *NA* /2015 Medical (10/09/15 11:37 AM) Cente r URINE AND UA Blood Negative Negative 10/09 [facility] STOOL (10/09/15 11:37 AM) /2015 [facility] URINE AND UA WBC 1 0 - 5 10/09 [facility] STOOL /2015 Medical [place] URINE AND UA Nitrite Negative Negative 10/09 [facility] STOOL (10/09/15 11:37 AM) /2015 [facility] URINE AND UA Leuk Est Negative Negative 10/09 [facility] STOOL (10/09/15 11:37 AM) [facility] URINE AND UA pH 5.0 5.0 - 8.0 10/09 [facility] URINE AND UA Spec Grav 1.010 <=1.030 10/09 [facility] [address] [place] [address] URINE AND UA Protein Negative Negative 10/09 [facility] mg/dL mg/dL [facility] URINE AND UA Ketones Negative Negative 10/09 [facility] mg/dL mg/dL [facility] URINE AND UA Glucose Negative Negative 10/09 [facility] mg/dL mg/dL [facility] URINE AND UA Sq Epi None Seen 10/09 [facility] URINE AND UA <=1.0 0.1 - 1.0 10/09 [facility] Urobilinogen mg/dL [facility] URINE AND UA Mucus Few /LPF None Seen 10/09 [facility] /LPF /2015 [facility] URINE AND UA Hyal Cast 1 0 - 2 10/09 [facility] URINE AND UA RBC 1 0 - 2 10/09 [facility] [address] [place] [address] HEMATOLOGY RBC Morph Normal 10/09 [facility] (10/09/15 4:52 AM) [facility] HEMATOLOGY Plt Morph Normal 10/09 [facility] (10/09/15 4:52 AM) [facility] ANEMIA Ferritin Lvl 189 22 - 275 10/06 [facility] STUDY /2015 [facility] ANEMIA % [place] 12 12 - 57 10/06 [facility] /[address] [place] [address] ANEMIA UIBC 181 110 - 370 10/06 [facility] ANEMIA Iron 24 45 - 160 10/06 [facility] STUDY [facility] ANEMIA TIBC 205 228 - 428 10/06 [facility] /2015 [facility] HEMATOLOGY PB Smear Path Peripheral 10/06 [place] blood /2015 Medical smear Center shows hypochromi c anemia, slight polychroma rashawn, a few elliptocyt es, neutrophil ia with reactive PMNs. Impression : (1) anemia- iron panel results are borderline between anemia of chronic disease and iron deficiency anemia, (2) a reactive condition. CPT: 56682 HEMATOLOGY Retic Auto 4.3 0.5 - 1.5 10/06 [facility] [address] [place] [address] BLOOD BANK Antibody Scrn Negative 10/05 [facility] as RESULTS (10/05/15 4:35 AM) /2015 [facility] BLOOD BANK ABO/Rh O POS 10/05 [place] RESULTS /2015 [facility] HEMATOLOGY INR 1.68 0.85 - 10/03 [place] 1.17 [facility] HEMATOLOGY PT 20.1 12.0 - 10/03 [place] 14.7 /2015 [facility] HEMATOLOGY PTT 36.2 22.9 - 10/03 [place] 35.8 /2015 [facility] CARDIAC Total CK 138 12 - 191 10/02 [facility] ENZYMES [facility] BLOOD BANK Antibody Scrn Negative 10/02 [place] RESULTS (10/02/15 9:57 AM) /2015 [facility] BLOOD BANK ABO/Rh O POS 10/02 [facility] RESULTS /2015 [facility] CHEM PANEL B/C Ratio 16 6 - 25 10/02 [facility] HEMATOLOGY PT 20.9 12.0 - 10/02 [place] 14.7 /2015 [facility] HEMATOLOGY INR 1.77 0.85 - 10/02 [place] 1.17 [facility] HEMATOLOGY PTT 33.9 22.9 - 10/02 [place] 35.8 /2015 [facility] CHEM PANEL Uric Acid 6.8 3.8 - 8.0 10/02 [facility] URINE AND UA Sq Epi None Seen 10/02 [facility] STOOL [facility] URINE AND UA <=1.0 0.1 - 1.0 10/02 [facility] Urobilinogen mg/dL /2015 [facility] URINE AND UA Bili Negative Negative 10/02 [facility] STOOL *NA* [facility] (10/01/15 6:37 PM) [place] URINE AND UA Blood Moderate Negative 10/02 [facility] STOOL *ABN* [facility] (10/01/15 6:37 PM) [place] URINE AND UA Nitrite Negative Negative 10/02 [facility] (10/01/15 6:37 PM) /2015 [facility] URINE AND UA Ketones Negative Negative 10/02 [facility] STOOL mg/dL mg/dL [facility] URINE AND UA Glucose Negative Negative 10/02 [facility] mg/dL mg/dL [facility] URINE AND UA Mucus Few /LPF None Seen 10/02 [facility] STOOL /LPF /2015 [facility] URINE AND UA Hyal Cast 3 0 - 2 10/02 [facility] STOOL [facility] URINE AND UA Color Yellow Yellow 10/02 [facility] STOOL *NA* [facility] (10/01/15 6:37 PM) [place] URINE AND UA WBC 15 0 - 5 10/02 [facility] URINE AND UA Leuk Est Moderate Negative 10/02 [facility] *ABN* [facility] (10/01/15 6:37 PM) [place] URINE AND UA Turbidity Slight Clear 10/02 [facility] *ABN* [facility] (10/01/15 6:37 PM) [place] URINE AND UA Spec Grav 1.016 <=1.030 10/02 [facility] URINE AND UA pH 5.0 5.0 - 8.0 10/02 [facility] URINE AND UA Protein 50 mg/dL Negative 10/02 [facility] mg/dL /2015 [facility] URINE AND UA Bacteria Few /HPF None Seen 10/02 [facility] STOOL /HPF /2015 [facility] URINE AND UA RBC 9 0 - 2 10/02 [facility] URINE CHEM U Protein 52.6 10/02 [facility] URINE CHEM U Sodium 16 10/02 [facility] URINE CHEM U Creatinine 107.00 10/02 [facility] URINE CHEM U Prot/Creat 0.5 10/02 [facility] CHEM PANEL Lactic Acid 5.6 0.5 - 2.2 10/01 Result [facility] Lvl Comment: [facility] Result(s) called to Juliocesar Ramsey at 10/01/2015 16:15 by KW. Read back OK. HEMATOLOGY PTT 35.1 22.9 - 10/01 [place] 35.8 /2015 [facility] HEMATOLOGY PT 21.2 12.0 - 10/01 [place] 14.7 /2016 [facility] HEMATOLOGY INR 1.80 0.85 - 10/01 [place] 1.17 [facility] BLOOD BANK RBC product Product available 10/01 [facility] RESULTS (10/01/15 3:00 AM) /2015 [facility] PARATHYROID Ca Ion WB 1.08 1.05 - 10/01 [place] PROFILE 1. [facility] PARATHYROID Ca Norm WB 1.09 1.05 - 10/01 [facility] PROFILE . [facility] CHEM PANEL B/C Ratio 9 6 - 25 10/01 [facility] BACTERIAL - MRSA by PCR Negative 09/30 [facility] SEROLOGY (09/30/15 5:53 PM) /2015 [facility] HEMATOLOGY RBC Morph Normal 09/30 [facility] (09/30/15 5:53 PM) /2015 [facility] HEMATOLOGY Plt Morph Normal 09/30 [facility] (09/30/15 5:53 PM) [facility] PARATHYROID Ca Norm WB 0.95 1.05 - 09/30 [facility] PROFILE 1. [facility] PARATHYROID Ca Ion WB 0.99 . - 09/30 [facility] PROFILE 1. [facility] CARDIAC BNP 508 <=100 09/30 [facility] ENZYMES pg/mL /2015 [facility] CHEM PANEL Lipase Lvl 188 73 - 393 09/30 [facility] CHEM PANEL B/C Ratio 14 6 - 25 09/30 [facility] CHEM PANEL Amylase Lvl 52 25 - 115 09/30 [facility] BLOOD BANK Antibody Scrn Negative 09/29 [facility] as RESULTS (09/29/15 5:51 PM) [facility] BLOOD BANK ABO/Rh O POS 09/29 [facility] RESULTS [facility] CHEM PANEL Phosphorus 3.1 2.5 - 4.5 09/22 [facility] CHEM PANEL Magnesium Lvl 2.0 1.8 - 2.4 09/22 [facility] /2014 [facility] ELECTROLYTE CO2 25 24 - 32 09/22 [facility] S /2014 [facility] ELECTROLYTE Calcium Lvl 8.4 8.5 - 10.5 09/22 [facility] S [facility] ELECTROLYTE AGAP 12.2 10.0 - 09/22 [facility] S 20.0 [facility] ELECTROLYTE eGFR 85 09/22 Result [facility] Comment: The [facility] eGFR is Center calculated using the CKD-EPI [...] Glucose Lvl 115 70 - 99 09/22 [facility] ELECTROLYTE BUN 13 7 - 22 09/22 [facility] 2014 [facility] ELECTROLYTE Creatinine 0.88 0.50 - 09/22 [facility] S Lvl 1.40 [facility] ELECTROLYTE Sodium Lvl 143 135 - 145 09/22 [facility] s [facility] ELECTROLYTE Potassium Lvl 3.2 3.5 - 5.1 09/22 [place] [facility] ELECTROLYTE Chloride Lvl 109 95 - 109 09/22 [facility] [facility] HEMATOLOGY Eosinophils 6.9 0.0 - 4.0 09/22 [facility] HEMATOLOGY Segs 57.6 45.0 - 09/22 [place] 75.0 [facility] HEMATOLOGY Monocytes 11.0 2.0 - 12.0 09/22 2014 [facility] HEMATOLOGY Basophils 1.0 0.0 - 1.0 09/22 [facility] HEMATOLOGY Lymphocytes 23.5 20.0 - 09/22 [facility] 40.0 [facility] HEMATOLOGY Eosinophils # 0.5 0.0 - 0.5 09/22 [facility] HEMATOLOGY Segs-Bands # 4.5 1.5 - 8.1 09/22 [facility] HEMATOLOGY Monocytes # 0.9 0.0 - 0.8 09/22 [facility] HEMATOLOGY Basophils # 0.1 0.0 - 0.2 09/22 [facility] HEMATOLOGY Lymphocytes # 1.8 1.0 - 5.5 09/22 [facility] HEMATOLOGY MPV 8.4 7.4 - 10.4 09/22 2014 [facility] HEMATOLOGY Platelet 218 133 - 450 09/22 [facility] HEMATOLOGY WBC 7.8 3.7 - 10.4 09/22 2014 [facility] HEMATOLOGY Hgb 13.6 14.0 - 09/22 [facility] 18.0 [facility] HEMATOLOGY MCHC 32.5 32.0 - 09/22 [place] 36.0 [facility] HEMATOLOGY MCH 29.7 27.0 - 09/22 31.0 /2014 [facility] HEMATOLOGY RBC 4.58 4.70 - 09/22 [place] 6.10 /2014 [facility] HEMATOLOGY MCV 91.4 80.0 - 09/22 [facility] 94.0 [facility] HEMATOLOGY Hct 41.8 42.0 - 09/22 [place] 54.0 /2014 [facility] HEMATOLOGY RDW 14.8 11.5 - 09/22 14. [facility] CHEM PANEL Phosphorus 2.5 2.5 - 4.5 09/21 [facility] CHEM PANEL Magnesium Lvl 2.1 1.8 - 2.4 09/21 [facility] CHEM PANEL eGFR 94 09/21 [facility] Comment: [facility] eGFR is Center calculated using the CKD-EPI [...] PANEL BUN 10 7 - 22 09/21 [facility] CHEM PANEL Glucose Lvl 108 70 - 99 09/21 [facility] CHEM PANEL CO2 23 24 - 32 09/21 [facility] CHEM PANEL Calcium Lvl 8.5 8.5 - 10.5 09/21 [facility] CHEM PANEL Creatinine 0.69 0.50 - 09/21 [place] Lvl 1.40 [facility] CHEM PANEL Chloride Lvl 111 95 - 109 09/21 [facility] CHEM PANEL Potassium Lvl 3.3 3.5 - 5.1 09/21 [facility] CHEM PANEL Sodium Lvl 145 135 - 145 09/21 [facility] CHEM PANEL AGAP 14.3 10.0 - 09/21 [place] 20.0 [facility] HEMATOLOGY Basophils # 0.1 0.0 - 0.2 09/21 [facility] HEMATOLOGY Lymphocytes # 1.6 1.0 - 5.5 09/21 [facility] HEMATOLOGY Segs-Bands # 5.4 1.5 - 8.1 09/21 [facility] HEMATOLOGY Eosinophils # 0.2 0.0 - 0.5 09/21 [facility] HEMATOLOGY Monocytes # 0.8 0.0 - 0.8 09/21 [facility] HEMATOLOGY Basophils 0.8 0.0 - 1.0 09/21 [facility] HEMATOLOGY Monocytes 9.6 2.0 - 12.0 09/21 [facility] HEMATOLOGY Eosinophils 2.1 0.0 - 4.0 09/21 [facility] HEMATOLOGY Segs 67.7 45.0 - 09/21 [place] 75.0 [facility] HEMATOLOGY Lymphocytes 19.8 20.0 - 09/21 [place] 40.0 [facility] HEMATOLOGY RDW 15.0 11.5 - 09/21 [place] 14.5 [facility] HEMATOLOGY Platelet 199 133 - 450 09/21 [facility] HEMATOLOGY MPV 8.2 7.4 - 10.4 09/21 [facility] HEMATOLOGY Hgb 13.6 14.0 - 09/21 [place] 18.0 [facility] HEMATOLOGY MCH 29.2 27.0 - 09/21 [place] 31.0 [facility] HEMATOLOGY Hct 43.0 42.0 - 09/21 [place] 54.0 [facility] HEMATOLOGY MCV 92.4 80.0 - 09/21 [place] 94.0 [facility] HEMATOLOGY WBC 8.0 3.7 - 10.4 09/21 [facility] HEMATOLOGY RBC 4.66 4.70 - 09/21 [place] 6.10 [facility] HEMATOLOGY MCHC 31.6 32.0 - 09/21 [place] 36.0 [facility] PARATHYROID Ca Ion WB 1.05 1.05 - 09/21 [place] PROFILE 1.25 /2014 [facility] PARATHYROID Ca Norm WB 1.06 1.05 - 09/21 [place] PROFILE 1. [facility] CARDIAC Total CK 45 12 - 191 09/20 [facility] /2014 [facility] CARDIAC Troponin-I 0.02 0.00 - 09/20 [facility] ENZYMES 0.40 [facility] CARDIAC Troponin-T <0.010 0.000 - 09/20 [facility] ENZYMES 0.100 [facility] BACTERIAL - MRSA by PCR Negative 09/20 [facility] s SEROLOGY (09/20/15 2:08 AM) /2014 [facility] CARDIAC Total CK 45 12 - 191 09/20 [facility] /2014 [facility] CARDIAC Troponin-T <0.010 0.000 - 09/20 [facility] ENZYMES 0.100 [facility] CARDIAC Troponin-I 0.02 0.00 - 09/20 [facility] ENZYMES 0.40 [facility] CHEM PANEL eGFR 72 09/20 [facility] Comment: [facility] eGFR is Center calculated using the CKD-EPI [...] Lvl 8.3 8.5 - 10.5 09/20 [facility] [facility] CHEM PANEL Creatinine 1.02 0.50 - 09/20 [facility] Lvl 1. [facility] CHEM PANEL Sodium Lvl 141 135 - 145 09/20 [facility] CHEM PANEL BUN 18 7 - 22 09/20 [facility] CHEM PANEL CO2 24 24 - 32 09/20 [facility] CHEM PANEL AGAP 12.1 10.0 - 09/20 20.0 [facility] CHEM PANEL Potassium Lvl 3.1 3.5 - 5.1 09/20 [facility] CHEM PANEL Chloride Lvl 108 95 - 109 09/20 [facility] CHEM PANEL Glucose Lvl 116 70 - 99 09/20 [facility] CHEM PANEL Bili Indirect 0.5 0.0 - 1.0 09/20 [facility] CHEM PANEL Bili Direct 0.3 0.0 - 0.3 09/20 [facility] CHEM PANEL Bili Total 0.8 0.2 - 1.3 09/20 [facility] CHEM PANEL ASPARTATE 18 0 - 37 09/20 [facility] CHEM PANEL Alk Phos 136 39 - 136 09/20 [facility] CHEM PANEL A/G Ratio 0.8 0.7 - 1.6 09/20 [facility] CHEM PANEL ALANINE 29 0 - 65 09/20 [facility] CHEM PANEL Total Protein 7.1 6.4 - 8.4 09/20 [facility] CHEM PANEL Globulin 4.0 2.0 - 4.0 09/20 [facility] CHEM PANEL Albumin Lvl 3.1 3.5 - 5.0 09/20 [facility] CHEM PANEL Phosphorus 3.8 2.5 - 4.5 09/20 [facility] CHEM PANEL Magnesium Lvl 1.8 1.8 - 2.4 09/20 [facility] HEMATOLOGY MCHC 32.4 32.0 - 09/20 [place] 36.0 [facility] HEMATOLOGY RDW 14.2 11.5 - 09/20 [place] 14.5 [facility] HEMATOLOGY Platelet 196 133 - 450 09/20 [facility] HEMATOLOGY MPV 8.1 7.4 - 10.4 09/20 [facility] HEMATOLOGY MCH 29.6 27.0 - 09/20 [place] 31.0 [facility] HEMATOLOGY WBC 8.1 3.7 - 10.4 09/20 [facility] HEMATOLOGY RBC 4.62 4.70 - 09/20 [place] 6.10 [facility] HEMATOLOGY Hgb 13.6 14.0 - 09/20 [place] 18.0 /2014 [facility] HEMATOLOGY Hct 42.2 42.0 - 09/20 [place] 54.0 [facility] HEMATOLOGY MCV 91.3 80.0 - 09/20 [place] 94.0 /2014 [facility] HEMATOLOGY Sed Rate 17 0 - 15 09/20 [facility] HEMATOLOGY Basophils 0.7 0.0 - 1.0 09/20 [facility] HEMATOLOGY Lymphocytes 23.3 20.0 - 09/20 [place] 40.0 [facility] HEMATOLOGY Monocytes 7.7 2.0 - 12.0 09/20 [facility] HEMATOLOGY Segs 66.5 45.0 - 09/20 [place] 75.0 [facility] HEMATOLOGY Eosinophils 1.8 0.0 - 4.0 09/20 [facility] HEMATOLOGY Eosinophils # 0.1 0.0 - 0.5 09/20 [place] [facility] HEMATOLOGY Basophils # 0.1 0.0 - 0.2 09/20 [place] [facility] HEMATOLOGY Lymphocytes # 1.9 1.0 - 5.5 09/20 [place] [facility] HEMATOLOGY Monocytes # 0.6 0.0 - 0.8 09/20 [facility] HEMATOLOGY Segs-Bands # 5.4 1.5 - 8.1 09/20 [facility] PARATHYROID Ca Ion WB 1.06 1.05 - 09/20 [place] PROFILE . [facility] PARATHYROID Ca Norm WB 1.06 1.05 - 09/20 PROFILE . [facility] DRUG SCREEN UDS Note See Note 09/20 [...] 2.84 4.00 - 09/20 [place] 7.30 [facility] [place] LIPIDS HDL 37 >=61 mg/dL 09/20 [facility] LIPIDS LDL 37 <=99 mg/dL 09/20 [facility] (Calculated) /2014 [facility] LIPIDS VLDL 31 09/20 [facility] LIPIDS Chol 105 <=199 09/20 [facility] mg/dL [facility] LIPIDS Trig 157 <=149 09/20 [facility] mg/dL [facility] SPECIAL Hgb A1C 6.0 <=5.6 % 09/20 [facility] CHEMISTRY /2014 [facility] URINE AND UA Ketones Negative Negative 09/20 [facility] STOOL *NA* Medical (09/19/15 10:09 PM) Cent er URINE AND UA Glucose Negative Negative 09/20 [facility] (09/19/15 10:09 PM) /2014 [facility] URINE AND UA 0.2 0.1 - 1.0 09/20 [facility] Urobilinogen /2014 [facility] URINE AND UA Blood Small Negative 09/20 [facility] STOOL *ABN* Medical (09/19/15 10:09 PM) Cent er URINE AND UA Bili Negative Negative 09/20 [facility] STOOL *NA* Medical (09/19/15 10:09 PM) Cent er URINE AND UA Spec Grav 1.015 <=1.030 09/20 [facility] STOOL /2014 [facility] URINE AND UA Protein 100 mg/dL Negative 09/20 [facility] STOOL mg/dL [facility] URINE AND UA Turbidity Clear Clear 09/20 [facility] STOOL (09/19/15 10:09 PM) /2014 [facility] URINE AND UA pH 5.5 5.0 - 8.0 09/20 [facility] STOOL /2014 [facility] URINE AND UA Leuk Est Negative Negative 09/20 [facility] STOOL (09/19/15 10:09 PM) /2014 [facility] URINE AND UA Nitrite Negative Negative 09/20 [facility] STOOL (09/19/15 10:09 PM) /2014 [facility] URINE AND UA Color Yellow Yellow 09/20 [facility] STOOL *NA* /2014 Medical (09/19/15 10:09 PM) Cent er URINE AND UA Sq Epi Occasional Few /LPF 09/20 [facility] STOOL /LPF /2014 [facility] URINE AND UA Bacteria None Seen None Seen 09/20 [place] [facility] STOOL (09/19/15 10:09 PM) /2014 [facility] URINE AND UA Mucus Rare /LPF None Seen 09/20 [facility] STOOL /LPF /2014 [facility] URINE AND UA WBC 0-2 /HPF None Seen 09/20 [facility] STOOL /HPF /2014 [facility] URINE AND UA RBC 0-2 /HPF 0 - 2 09/20 [facility] STOOL /2014 [facility] URINE AND UA Hyal Cast 0-2 0 - 2 09/20 [facility] STOOL (09/19/15 10:09 PM) /2014 [facility] CHEM PANEL POC 1.4 0.5 - 1.4 09/20 [facility] Creatinine /2014 [facility] HEMATOLOGY Rapid TEG Citrated Whole Blood 09/20 [facility] Sample Type (09/19/15 9:00 PM) /2014 [facility] HEMATOLOGY ACT (TEG) 113 86 - 118 09/20 [facility] [address] [place] [address] HEMATOLOGY [place] 0.5 09/20 [facility] HEMATOLOGY R-time 0.7 0.4 - 0.7 09/20 [facility] HEMATOLOGY K-time 1.2 0.6 - 2.3 09/20 [facility] HEMATOLOGY Angle 75 64 - 80 09/20 [facility] HEMATOLOGY G-value 9.4 5.0 - 11.6 09/20 [facility] HEMATOLOGY Max Amp 65 52 - 71 09/20 [facility] HEMATOLOGY Estimated % 4.1 0.0 - 7.5 09/20 [place] /2014 Comment: Medical "Significant Center Findings called to Mimi Quezada_at 09/19/2015 22:10__by ct__.Read Back OK." CARDIAC CK MB Index 3.8 0.0 - 2.5 09/20 [facility] ENZYMES /2014 [facility] CARDIAC Total CK 53 12 - 191 09/20 [facility] ENZYMES /2014 [facility] CARDIAC Troponin-I <0.02 0.00 - 09/20 [facility] ENZYMES 0.40 /2014 [facility] CARDIAC CK MB 2.0 0.5 - 3.6 09/20 [facility] ENZYMES /2014 [facility] HEMATOLOGY PTT 33.4 22.9 - 09/20 [place] 35.8 /2014 [facility] HEMATOLOGY INR 1.17 0.85 - 09/20 [place] 1.17 /2014 [facility] HEMATOLOGY PT 15.2 12.0 - 09/20 [facility] 14.7 /2014 [facility] Pathology Reports No Data Provided for This Section Diagnostic Reports Report Value Date Source Chest 2 views DX EXAM: Chest 2 views DX 11/14/2015 BETTINA Tompkins DATE: 11/14/2015 1:08 PM [employer] [employer] INDICATION: Atrial fibrillation. Ischemic stroke . Coronary artery disease. ADDITIONAL HISTORY: Status p ost coronary artery bypass graft, maze procedure, left atrial appendage closure, placement of [employer] Reveal LINQ model 11 on 09/30/2015. COMPARISON: Chest 1 view 10/15/2015, chest 2 view s 10/08/2015. TECHNIQUE: PA and lateral views of the chest. Im ages: 2. FINDINGS: Lines, tubes, devices: The l eft atrial appendage closure clamp and internal traffic monitor specialist remain in place. Lungs and pleura: The [...] Portable ap semierect chest October 15, 2015 [facility] HISTORY: Abnormal chest sounds. [...] swelling with leukocytosis, concern for DVT 10/13/2015 [facility] Bilat Doppler Center IMPRESSION: 1. There [...] DX EXAM: XR CHEST 1 VIEW 10/13/2015 [facility] DATE: 10/13/2015 at 1358 hours INDICATION: Abnormal chest sounds COMPARISON: Chest radiograph from 10/09/2015. TECHNIQUE: A single portable upright AP view of the chest was obtained. FINDINGS: The cardiac silhou ette remains enlarged. Postsurgical changes and support devices are unchanged in appearance. Multiple leads from external traffic monitor specialist device overly the mediastinum. Small bilateral pleural effu sions are again present. Dense bilateral retrocardiac opacities are again present representing singly or any combination of layering pleural fluid, subsegmental atelectasis and/or pneumonia. The upper lungs are clear. IMPRESSION: No significant interval change from 10/09/2015. Abdomen AP DX EXAM: Abdomen x-ray. 10/10/2015 [facility] DATE: 10/10/2015. INDICATIONS: Abdomen fullness FINDINGS: IMPRESSION: No small bowel dilation. Mil d gastric distention. Mild gaseous dilation of transverse colon at 7.2 cm with mild colonic stool burden within the descending colon. Chest 1view DX EXAM: XR CHEST 1 VIEW 10/09/2015 [facility] DATE: 2015-10-09 12:42:00 INDICATION: Abnormal chest sounds [...] DX EXAM: XR CHEST 1 VIEW 10/08/2015 [facility] DATE: 2015-10-08 21:35:00 INDICATION: [...] Portable ap semierect chest OCTOBER 06, 201507/2016 [facility] HISTORY: Pleural effusion. Comparison [...] DX EXAM: XR CHEST 1 VIEW 10/05/2015 [facility] DATE: 2015-10-05 01:11:00 INDICATION: Tube placement/removal/reposition . [...] DX EXAM: XR CHEST 1 VIEW 10/04/2015 [facility] DATE: 2015-10-04 01:50:00 INDICATION: Tube placement/removal/reposition . [...] DX EXAM: XR CHEST 1 VIEW 10/03/2015 [facility] DATE: 2015-10-03 02:06:00 INDICATION: Tube placement/removal/reposition . [...] view, October 02, 2015 at 1357. 016 [facility] HISTORY: 75-year-old man with [...] Nurse Gandara as we ll as the Rib Chopper were notified at 3:24 p.m. on October 02. The Rib Chopper was already aware of this finding. A [...] ap semierect chest October 02, 2015. 03/2016 [facility] HISTORY: Tube placement. Comparison [...] US EXAM: ABDOMINAL ULTRASOUND COMPLETE 10/01/19 16 [facility] DATE: Oct 01, 2015 [...] October 01, 2015 at 1:45 a.m. 02/2016 [facility] HISTORY: 75-year-old man with [...] DX EXAM: XR CHEST 1 VIEW 09/30/2015 [facility] DATE: September 30, 2015. INDICATION: On arrival [...] DX EXAM: XR CHEST ONE VIEW 09/29/2015 [facility] DATE: Sep 29, 2015 07:49:00 PM CLINICAL [...] Vein Chest CTA pulmonary vein mapping 09/22/2015 [facility] DATE: 09/22/2015 at 1624 HISTORY: Arrhythmia; recent history of CVA; also status post tPA. TECHNIQUE: Retrospective gat ed CT of the heart is obtained according to pulmonary vein protocol following the intravenous administration of 85 cc Omnipaque 350 contrast. Open [id number] CT axial CT is included with the 75% phase. These images are reformatted on the Mobile System 7 3-D reconstruction system for better evaluation of [...] pulmonary vein ostium. It is also indirectly gauge checker ior to the left superior right vein [...] PA and lateral September 22, 2015 09/22/[address] [place] [address] HISTORY: Arrhythmias. Comparison is made with . FINDINGS: Cardiomediastinal silhouette is prominent but stable with a calcified left-sided aorta. There is blunting of the left dorsal costophrenic sulcus by a small left pleural effusion. The lateral c ostophrenic sulci are sharp. The lungs are clear . CONCLUSION: Left pleural effusion. Brain wo contrast MRI EXAM: MRI BRAIN WITHOUT CONTRAST. 09/20/[address] [place] [address] DATE: September 20, 2015 at 0318 hours. [...] 1view DX EXAM: CHEST 1 VIEW 09/19/2015 [facility] DATE: 2015-09-19 22:07:00 INDICATION: Altered [...] CT EXAM: CT HEAD WITHOUT CONTRAST 09/19/2015 [facility] DATE: Sep 19, 2015 [...] agreem ent with preliminary report made by director of consulting services Taping Supervisor. Creator:Ariel Mcintyre ate:Sep 19, 2015 21:11:52 Subject: no acute intracranial abnormality Brain/Neck Stroke EXAM: CT ANGIOGRAM OF THE HEAD 09/19/2015 [facility] Medical perfusion CTA EXAM: CT ANGIOGRAM [...] Date Comments Source Heart Rate 82 02/18/2017 [facility] Height 179.58 cm 02/18/2017 [facility] BMI Calculated 28.83 02/18/2017 [facility] Weight 92.983 02/18/2017 [facility] Systolic (mm Hg) 146 02/18/2017 [facility] dical Center Diastolic (mm Hg) 84 02/18/2017 [facility] Temperature Oral (F) 98.1 F 02/20/2016 [facility] BMI Calculated 26.31 02/20/2016 [facility] Weight 90.455 02/20/2016 [facility] Height 185.42 cm 02/20/[facility] Systolic (mm Hg) 16 02/20/2016 [facility] dical Center Diastolic (mm Hg) 88 02/20/2016 [facility] Center Respitory Rate 16 02/20/2016 [facility] Heart Rate 65 02/20/2016 [facility] Height 185.42 cm 01/29/2016 [facility] Weight 90 01/29/2016 [facility] BMI Calculated 26.18 01/29/2016 [facility] Center Systolic (mm Hg) 143 01/29/2016 [facility] dical Center Diastolic (mm Hg) 75 01/29/2016 [facility] Temperature Oral (F) 97.6 F 01/29/2016 [facility] Respitory Rate 18 01/29/2016 [facility] Heart Rate 60 01/29/2016 [facility] Respitory Rate 18 01/02/2016 [facility] Center Systolic (mm Hg) 166 01/02/2016 [facility] dical Center Diastolic (mm Hg) 85 01/02/2016 [facility] Respitory Rate 18 01/02/2016 [facility] Center Systolic (mm Hg) 149 01/02/2016 [facility] dical Center Diastolic (mm Hg) 92 [facility]/02/[facility] Resp[facility] Rate 18 01/02/2016 [facility] prabhjot Center Systolic (mm Hg) 152 01/02/2016 [facility] dical Center Diastolic (mm Hg) 84 01/02/2016 [facility] BMI Calculated 28.04 01/02/2016 [facility] Center Weight 88.636 01/02/2016 [facility] Height 177.8 cm 01/02/2016 [facility] Temperature Oral (F) 98.6 F 01/02/2016 [facility] Weight 85.909 11/14/2015 [facility] BMI Calculated 24.99 11/14/2015 [facility] Height 185.42 cm 11/14/2015 [facility] Respitory Rate 18 11/14/2015 [facility] Heart Rate 70 11/14/2015 [facility] Temperature Oral (F) 97.6 F 11/14/2015 [facility] Center Systolic (mm Hg) 115 11/14/2015 [facility] dical Center Diastolic (mm Hg) 66 11/14/2015 [facility] BMI Calculated 24.74 10/29/2015 [facility] Weight 85.056 10/29/2015 [facility] Systolic (mm Hg) 101 10/29/2015 [facility] dical Center Diastolic (mm Hg) 52 10/29/2015 [facility] Center Heart Rate 53 10/29/2015 [facility] Respitory Rate 16 10/29/2015 [facility] Temperature Oral (F) 97.0 F 10/29/2015 [facility] Center Height 185.4 cm 10/29/2015 [facility] Temperature Oral (F) 97.0 F 10/29/2015 [facility] Center Respitory Rate 16 10/29/2015 [facility] Heart Rate 53 10/29/2015 [facility] Systolic (mm Hg) 101 10/29/2015 [facility] dical Center Diastolic (mm Hg) 52 10/29/2015 [facility] BMI Calculated 24.89 10/29/2015 [facility] prabhjot Center Weight 85.568 10/29/2015 [facility] Height 185.4 cm 10/29/2015 [facility] Weight 84.091 10/22/2015 [facility] BMI Calculated 24.46 10/22/2015 [facility] Center Height 185.42 cm 10/22/2015 [facility] Systolic (mm Hg) 125 10/22/2015 [facility] dical Center Diastolic (mm Hg) 67 10/22/2015 [facility] Center Heart Rate 75 10/22/2015 [facility] Temperature Oral (F) 97.6 F 10/22/2015 [facility] Respitory Rate 16 10/22/2015 [facility] prabhjot Center Systolic (mm Hg) 119 10/20/2015 [facility] dical Center Diastolic (mm Hg) 64 10/20/2015 [facility] edical Center Respitory Rate 17 10/20/2015 [facility] Center Respitory Rate 17 10/20/2015 [facility] Center Systolic (mm Hg) 128 10/20/2015 [facility] dical Center Diastolic (mm Hg) 79 10/20/2015 [facility] edical Center Systolic (mm Hg) 131 10/20/2015 [facility] dical Center Diastolic (mm Hg) 71 10/20/2015 [facility] edical Center Respitory Rate 17 10/20/2015 [facility] Center Temperature Oral (F) 98.6 F 10/20/2015 [facility] Temperature Oral (F) 97.9 F 10/20/2015 [facility] Temperature Oral (F) 98.7 F 10/20/2015 [facility] Weight 101.007 10/09/2015 [facility] Heart Rate 5 10/02/2015 [facility] Heart Rate 26 10/02/2015 [facility] Heart Rate 25 10/02/2015 [facility] Systolic (mm Hg) 160 09/29/2015 [facility] Center Diastolic (mm Hg) 83 09/29/2015 [facility] Height 185.42 cm 09/29/2015 [facility] BMI Calculated 28.29 09/29/2015 [facility] Weight 97.273 09/29/2015 [facility] Temperature Oral (F) 98.7 F 09/29/2015 [facility] Heart Rate 60 09/29/2015 [facility] BMI Calculated 28.45 09/29/2015 [facility] Weight 97.818 09/29/2015 [facility] Height 185.42 cm 09/29/2015 [facility] Systolic (mm Hg) 152 09/22/2015 [facility] Center Diastolic (mm Hg) 81 09/22/2015 [facility] Heart Rate 62 09/22/2015 [facility] Respitory Rate 18 09/22/2015 [facility] Heart Rate 67 09/22/2015 [facility] Systolic (mm Hg) 151 09/22/2015 [facility] Diastolic (mm Hg) 79 [facility] 18 09/22/2015 [facility] Center Systolic (mm Hg) 145 09/22/2015 [facility] Center Diastolic (mm Hg) 85 09/22/2015 [facility] Respitory Rate 17 09/22/2015 [facility] Heart Rate 68 09/20/2015 [facility] Weight 110.4 09[facility]20/[facility] BMI Calculated 32.11 09/20/2015 [facility] Height 185.42 cm 09/20/2015 [facility] [place] Temperature Oral (F) 96.7 F 09/20/2015 [facility] Weight 100 09/20/2015 [facility] BMI Calculated 29.09 09/20/2015 [facility] Height 185.42 cm 09/20/2015 [facility] Encounters Location Location Encounter Encounter Reason Attending ADM DC Stat us Source Details Type Number For Provider Date Date Visit [facility] [id number] Mario 09/20 09/23 Veronica Law /2014 [facility] Outpatient [id number] Carson 09/29 09/30 [facility] Turner King /2015 [facility] Advanced Heart Failure [facility] Inpatient [id number] Carson 09/29 10/20 Veronica King /2015 [facility] Outpatient [id number] Stewart 10/22 10/23 [facility] Turner Kim /2015 [facility] [place] [facility] Advanced Heart Failure [facility] [id number] Soma 10/29 10/30 [facility] Advanced Heart Failure [facility] Outpatient [id number] Carson 11/14 11/15 [facility] Advanced Heart Failure [facility] Outpt Diag [id number] Carson 11/14 11/15 [facility] King /2015 [facility] Bedded [id number] [place] 01/01 01/[address] [facility] [place] Outpatient King /2015 [facility] Phone [id number] 01/12 01/14 [facility] v Advanced Heart Heart Failure Failure [facility] Outpatient [id number] Soma 01/28 01/29 [facility] Jyoula /2015 [facility] Advanced Heart Failure [facility] Outpatient [id number] Stewart 02/19 02/20 [facility]2015 [facility] Advanced Heart Failure [facility] Phone [id number] 02/23 02/25 Turner Message /2015 [facility] for [facility] v Advanced Heart Heart Failure Failure [facility] Phone [id number] 04/14 04/16 Benicia Message /2015 [facility] v Advanced Heart Heart Failure Failure [facility] Phone [id number] 10/22 10/24 Turner Message /2016 [facility] v Advanced Heart Heart Failure Failure [facility] Phone [id number] 12/21 12/23 Turner Message /2016 [facility] for Ad v Advanced Heart Heart Failure Failure [facility]patient [id number] Stewart 02/18 02/19 [facility] Loy[place]a /2016 [facility] Advanced Heart Failure Procedures Procedure Code Date Perfomer Comments Source Lithotripsy [id number] 09/26/1990 [facility] [place] [facility] Fusion of joint of [id number] 09/26/1977 [facility] as cervical spine Medical with internal Center, fixation by BETTINA anterior approach [facility] [place] [facility] Kidney - local [id number] 09/26/1952 [facility] Operation<sup>1</s [id number] gall stone MH [facility] as up> [facility] Operation<sup>2</s [id number] TARP for MH [facility]er as up> kidneys; back [facility] Assessment and Plan Assessment and Plan Date Source Extracted from:Title: PA PCCM Consultation Note 10/30/2015 [facility] Author: Alexandro Penn MD [...] a Bachelors degree. 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 Review of Systems Constitutional: Fatigue, No [...] Medical History: Resolved CHF (congestive heart failure) ([id number]): Resolved. Diabetes ([id number]): Resolved. Atrial fibrillation (46530359): Resolved. Hypertension (20682643): Resolved. COPD (77830227): Resolved. Stroke (556293307): Resolved. Family History: High blood pressure Mother Stroke Mother Brother TB - Tuberculosis Father Procedure history: Lithotripsy (880653897) in 1990 at 51 Years. Fusion of joint of cervical spine with i nternal fixation by anterior approach ([id number]) on 09/26/1977 at 37 Years. Kidney - local excision (479469953) in 1952 at 13 Years. Operation ([id number]). Comments: 09/19/2015 22:17 - Adina Soler RN gall stone removed Operation ([id number]). Comments: 09/19/2015 22:18 - Adina Soler RN [...] Extracted from:Title: AHF Inpatient Progress Note 10/20/2015 [facility] Author: Stewart Kim MD Date: 10/19/15 Impression and Plan 75 y/o M with a PMH significant for HTN, HLD, DM2, Chronic A.fib (previously on Xarelto but discontinued 2/2 nasal bleed) and recent embolic CVA (treated with TPA, no residual deficits) on 09/19/15 who was transferred to [facility] for evaluatio n for mini-maze procedure by [...] as well HISTORY OF PRESENT ILLNESS: Mr. aVlle is a 75-year-old man with a history of atrial fibrillation who has been off Xarelto due to significant nasal bleeding, underlying hypertension, hyperlipidemia, and type 2 diabetes. admitte d to [facility] ER after havi ng an acute embolic stroke. He was there, treated with TPA and has had resolution of his neurologic deficits. Then, the patient was [facility] for possibility of left atrial appendage mini maze procedure by Dr. King. In [place], he underwent a CT chest that showed [...] f/u [facility] work up and renal consult. [facility] vent : as per pulm [...] to LAD, linQ Surgeon: Carson King MD Staff Air Defense Officer: Tatum Sewell PA-C (there was no qualified [...] History Date Source Social History TypeResponse 02/18/2017 [facility] Smoking Status Never smoker; Exposure to Tobacco [...]
--- OUTSIDE RECORDS SUMMARY | 2020-07-27 09:02 | XMS REPORT | Continuity of Care Document ---
:1940 Author Organization [facility] t Address [address] [place] [address] Care Team Providers Name Role Phone Macy BROOKS Primary Care Physician Jacinto BROOKS Attending Clinician Shahbaz BROOKS, J. Attending Clinician Benjamin Nunes Attending Clinician Unavailable Julio Attending Clinician Pamela Penn Attending Clinician Mandeep King Attending Clinician Pop Law Attending Clinician JACINTO Admitting Clinician Unavailable Julio Admitting Clinician Mandeep King Admitting Clinician Pop Law Admitting Clinician Payers Payer Name Policy Type Policy Effective Date Expiration Date Sour ce Number HUMANA [id number] 2018 [facility] [facility] [place] MEDICARE PPO/PFFS/ERS [id number] 2018 -PresentPPO Problems Condition Condition Condition Status Onset Resolution Last Treating Co mments Source Name Details Category Date Date Treatment Clinician Date Persistent Persistent Disease Active 2019- [place] atrial atrial 0-12 [facility] fibrillati fibrillati 00:00: st on on 00 FOLLOW UP Diagnosis Active 2017-02-18 Memoria 3-02 08:41:00 l FOLLOW 00:00: [place] UP 00 Active 7 [facility] AFIB Diagnosis Active 2016-01-02 Mem oria 12-28 08:40:00 l AFIB 00:00: [place] 00 Active 12/29/2015 [facility] CCL/*MAC Diagnosis Active 2015-12-31 M emoria ANESTHESIA 12-28 16:44:00 l */CARDIOVE CCL/*MAC 00:00: [place] RSION/DX: ANESTHESIA 00 A */CARDIOVE RSION/DX: A Active 12/29/2015 [facility] LSA Diagnosis Active 2015-10-31 [facility] oria 10-23 09:10:00 l LSA 00:00: [place] 00 Active 10/23/2015 [facility] HOSPITAL Diagnosis Active 2015-10-27 M emoria FOLLOW UP 10-22 09:16:00 l HOSPITAL 00:00: Maury n FOLLOW UP 00 Active 10/22/2015 [facility] A FIB Diagnosis Active 2015-10-23 [facility] oria 09-29 21:56:00 l A FIB 00:00: [place] 00 Active 09/29/2015 [facility] INTITAL Diagnosis Active 2014-092015-10-24 Me moria CONSULT 11-23 15:13:00 l INTITAL 00:00: [place] CONSULT 00 Active 09/22/2015 [facility] POST TPA Diagnosis Active 2014-092015-09-30 M emoria 11-20 14:48:00 l POST TPA 19:00: Maury n 00 Active 09/19/2015 [facility] CVA Diagnosis Active 2014-092015-09-19 Mem oria 11-20 21:57:00 l CVA 19:00: [place] 00 Active 09/19/2015 [facility] ELLE Diagnosis Active 2014-092015-09-19 Memoria BILLING 11-20 21:54:00 l LFLT 00:00: [place] #[id number] ELLE 00 BILLING LFLT #6335-A Active 09/19/2015 [facility] Atrial Problem Resolve 2017-02-21 Adam whitney fibrillati d 00:05:27 l on Atrial [place] (disorder) fibrillati on (disorder) Resolved Problem 02/21/2017 [facility], BETTINA Tompkins,[facility] Congestive Problem Resolve 2017-02-21 Memoria heart d 00:05:27 l failure [place] (disorder) Congestive heart failure (disorder) Resolved Problem 02/21/2017 [facility], BETTINA Tompkins, [facility] Chronic Problem Resolve 2017-02-21 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:27 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) Resolved Problem 02/21/2017 [facility], BETTINA Tompkins, [facility] Diabetes Problem Resolve 2017-02-21 Me moria mellitus d 00:05:27 l (disorder) Diabetes He r[place] mellitus (disorder) Resolved Problem 02/21/2017 [facility], BETTINA Tompkins, [facility] Hypertensi Problem Resolve 2017-02-21 Memoria ve d 00:05:27 l disorder, [place] systemic Hypertensi arterial ve (disorder) disorder, systemic arterial (disorder) Resolved Problem 02/21/2017 [facility], BETTINA Tompkins, [facility] Cerebrovas Problem Resolve 2017-02-21 Memoria cular d 00:05:27 l accident [place] (disorder) Cerebrovas cular accident (disorder) Resolved Problem 02/21/2017 [facility], BETTINA Tompkins, [facility] S/P ADMN Diagnosis Active 2015-09-30 M emoria TPA IN 14:48:00 l DIFF FAC S/P ADMN Herm napoleon W/N LAST TPA IN 24 HR DIFF FAC W/N LAST 24 HR Active [facility] MEDICAL Diagnosis Active 2016-01-29 Me moria SERVICES 12:31:00 l NOT MEDICAL [place] AVAILABLE SERVICES IN HOME NOT AVAILABLE IN HOME Active [facility] UNSPECIFIE Diagnosis Active 2015-10-23 Memoria D ATRIAL 21:56:00 l FIBRILLATI Maury n ON UNSPECIFIE D ATRIAL FIBRILLATI ON Active [facility] ENCNTR FOR Diagnosis Active 2017-02-18 Memoria GENERAL 08:41:00 l ADULT ENCNTR [place] MEDICAL FOR EXAM W/ GENERAL ADULT MEDICAL EXAM W/ Active [facility] Allergies, Adverse Reactions, Alerts This patient has no known allergies or adverse reactions. Social History Social Habit Start Date Stop Date Quantity Comments Source Sex Assigned At [facility] ethodist Exposure to Not sure Vigil Metho dist SARS-CoV-2 (event) Cigarettes smoked 2020-07-11 2020-07-11 Musa Blandon current (pack per 00:00:00 00:00:00 day) - Reported Cigarette 2020-07-11 2020-07-11 Musa Kirk ist pack-years 00:00:00 00:00:00 Tobacco use and 2020-07-11 2020-07-11 Never used Musa Bernal ethodist exposure 00:00:00 00:00:00 Alcohol intake 2020-07-11 2020-07-11 Current drinker [place] 00:00:00 00:00:00 of alcohol (finding) Tobacco Comment 2020 2020 Qick about 45yrs Nayeli ston Shinto 00:00:00 00:00:00 ago Alcohol Comment 2020 2020 a week Musa Gabe ethodist 00:00:00 00:00:00 Smoking Status Start Date Stop Date Source Former smoker 2020-07-11 00:00:00 2020-07-11 00:00:00 Musa Blandon Social History [facility] Medications Ordered Filled Start Stop Current Ordering Indication Dosage Frequency Signature Comments Components Source Medication Medication Date Date Medication? Clinician (SIG) Name Name aspirin 2019-09 Yes 81mg QD Take 81 mg [place] (ECOTRIN) 0-12 by mouth Method i 81 MG 08:48: daily. st enteric 40 coated tablet losartan 2019-09 Yes 100mg QD Take 100 [place] (COZAAR) 0-12 mg by Methodi 100 MG 08:48: mouth st tablet 40 every morning. hydroCHLORO 2019-09 Yes 25mg QD Take 25 mg Vigil thiazide 0-12 by mouth Methodi (HYDRODIURI 08:48: daily. st L) 25 MG 40 tablet spironolact 2019-09 Yes 25mg QD Take 25 mg Vigil one 0-12 by mouth Methodi (ALDACTONE) 08:48: daily. st 25 MG 40 tablet amLODIPine 2019-09 Yes 10mg QD Take 10 mg [place] (NORVASC) 0-12 by mouth Method i 10 mg 08:48: every st tablet 40 morning. atorvastati 2019-09 Yes 40mg QD Take 40 mg Vigil n (LIPITOR) 0-12 by mouth Meth marcus 40 mg 08:48: nightly. st tablet 40 om 2019-09 Yes 1{tbl} QD Take 1 Vigil 3/E/linol/a 0-12 tablet by Met [place] la/oleic/gl 08:48: mouth st a/lip 40 daily with (OMEGA breakfast. 3-6-9 ORAL) cranberry 2019-09 Yes 1{tbl} Q2D Take 1 [place] fruit 0-12 tablet by Methodi extract 08:48: mouth st (CRANBERRY 40 every CONCENTRATE other day. ORAL) TURMERIC 2019-09 Yes 1{tbl} Q2D Take 1 [place] ORAL 0-12 tablet by Methodi 08:48: mouth st 40 every other day. UNABLE TO 2019-09 Yes Goat weed1 [place] FIND 0-12 tablet Methodi 08:48: ever other st 40 day guaiFENesin 2019-09 Yes Take by Nayeli paul (MUCINEX) 0-12 mouth as Method i 600 mg 08:48: needed. st tablet 40 Taking for extended sinus release drainage 12hr amIODarone 2019-09 2020- No QD Take by Nayeli paul (PACERONE) 0-12 10-12 mouth Methodi 400 MG 08:14: 00:[address] tablet 03 :00 Taking 400 mg in the morning and 200 mg at 2 pm and 100 mg at bedtime amIODarone 2019-09 2020- Yes 200mg QD Take 0.5 [place] (PACERONE) 0-12 11-11 tablets Metho di 400 MG 00:00: 23:59 ([address] tablet 00 :00 total) by mouth daily for 30 days. Take 200 mg daily bumetanide Yes 1 mg = 1 Mem oria 1 mg oral 5-26 tab, PO, l tablet 15:32: BID, # 180 Danette nn 00 tab, 3 Refill(s), [facility]: [id number] nebivolol Yes 10 mg = 1 Mem oria 10 MG Oral 5-26 tab, PO, l Tablet 13:51: Daily [place] [Bystolic] 00 Microencaps Yes 20 mEq = 1 Memoria ulated 1-27 tab, PO, l Potassium 21:40: BID, # 180 He r[place] Chloride 20 38 tab, 3 MEQ Refill(s), Extended Pharmacy: Release [id number] [Klor-Con] nebivolol 5 Yes 5 mg = 1 Me moria MG Oral 1-27 tab, PO, l Tablet 21:40: Daily, # [place] [Bystolic] 00 90 tab, 3 Refill(s), [facility]acy: [id number] atorvastati Yes 40 mg = 1 M emoria n 40 mg 1-27 tab, PO, l oral tablet 21:39: Bedtime, # [place] 42 90 tab, 3 Refill(s), Pharmacy: [id number] 24 HR Yes 60 mg = 1 Memoria Nifedipine 1-27 tab, PO, l 60 MG 21:39: Daily, # [place] Extended 41 90 tab, 3 Release Refill(s), Tablet Pharmacy: [id number] bumetanide Yes 2 mg = 4 Mem oria 0.5 mg oral 1-27 tab, PO, l tablet 21:39: BID, # 240 Danette nn 39 tab, 6 Refill(s), Pharmacy: [id number], Patient is due for follow up appointmen t Potassium 2015- Yes 20 mEq = 1 Me moria Chloride 20 7-20 tab, PO, l MEQ 21:11: BID, # 180 [place] Extended 00 tab, 3 Release Refill(s), Tablet Pharmacy: [[facility]] [id number] bumetanide Yes 2 mg = 4 Mem oria 0.5 mg oral 5-31 tab, PO, l tablet 14:03: BID, [place] 07 patient is due for follow up appointmen t, # 240 tab, 6 Refill(s), Pharmacy: [id number], Patient is due for follow up appointmen t bumetanide Yes 2 mg = 4 Mem oria 0.5 mg oral 4-19 tab, PO, l tablet 22:20: BID, [place] 00 patient is due for follow up appointmen t, # 240 tab, 0 Refill(s), Pharmacy: [id number], Patient is due for follow up appointmen t sucralfate 2015- Yes 1 gm = 1 Mem oria [...] tab, PO, l Tablet 14:14: Daily, 0 [Bystolic] Refill(s) Sucralfate Yes 1 gm = 10 Me moria 100 MG/ML 4-08 mL, PO, l Oral 14:14: QID-Before [place] Meals, 0 [Carafate] Refill(s) bumetanide Yes 1 mg = 2 Mem oria 0.5 mg oral 4-08 tab, PO, l tablet 14:14: BID, 0 Refill(s) bumetanide Yes 1 mg = 2 Mem oria 0.5 mg oral 2-03 tab, PO, l tablet 17:41: BID Potassium Yes 20 mEq = 1 Me moria Chloride 20 2-03 tab, PO, l MEQ 17:41: BID [place] Extended 00 Release Tablet [Klor-Con] Metolazone Yes 2.5 mg = 1 M emoria 2.5 MG Oral 1-25 tab, PO, l Tablet 20:53: Q- and Th, # 30 tab, 1 Refill(s) polyethylen [...] PO, l 60 MG 20:44: Daily, # [place] Extended 00 90 tab, 3 Release Refill(s) Tablet nebivolol 5 Yes 5 mg = 1 Me moria mg oral 1-25 tab, PO, l tablet 20:44: Daily, # [place] 00 90 tab, 3 Refill(s) Metolazone No 2.5 mg = 1 M emoria 2.5 MG Oral 1-25 tab, PO, l Tablet 20:44: Q-M-W-F, # Danette nn 00 90 tab, 3 Refill(s) bumetanide Yes 2 mg = 4 Mem oria 0.5 mg oral 1-25 tab, PO, l tablet 20:44: BID, # 180 Danette nn 00 tab, 1 Refill(s) atorvastati Yes 40 mg = 1 M emoria n 40 mg 1-25 tab, PO, l oral tablet 20:44: Bedtime, # [place] 00 90 tab, 3 Refill(s) Aspirin Low [...] tab, PO, l tablet 16:24: BID, 0 [place] 00 Refill(s) AMIODarone No 200 mg = 1 M emoria 200 mg oral 1-25 tab, PO, l tablet 16:24: BID, 0 [place] 00 Refill(s) potassium No 10 mEq = Adam whitney chloride 1-25 50 mL, l 16:24: IVPB, PRN, [place] 00 PRN Abnormal Lab Result, 0 Refill(s) nebivolol 5 No 5 mg = 1 Me moria mg oral 1-25 tab, PO, l tablet 16:24: Daily, 0 [place] 00 Refill(s) 24 HR No 60 mg [...] Memoria 1-25 (Same As: l 13:00: Bumex) [place] 00 Diuril No Notes: Memoria 1-24 (Same As: l 16:33: Diuril [place] 00 Sodium) Diuril No 250 mg, Memoria -24 Route: PO, l 00:30: ONCE, [place] Dosing Weight 101.007, kg, Start date: 10/18/15 18:30:00, Stop date: 10/18/15 18:30:00 Diuril No Notes: Memoria Sodium + -24 (Same As: l Sodium 00:00: Diuril [place] Chloride 00 Sodium) 0.9% IV 50 mL Potassium No Notes: Memori a Chloride 20 1-23 (Same as: l MEQ 23:00: K-Dur 20) [place] Extended "Do Not Release Crush" Tablet With food and full glass of water Diuril No Notes: Memoria 1-23 (Same As: l 16:46: Diuril [place] 00 Sodium) bumetanide No Notes: Memor ia 10 mg -22 (Same as: l 22:30: Bumex) [place] Venofer No Notes: Memoria 1-19 Each 5ml l 22:00: contains [place] 00 100mg elemental iron. Mix with NS (Same as:Venofer ) Administer IV only. MEDICATION WASTE Product Size: 100 mg Product Wasted: ___ mg Aspirin No Notes: Do Memor ia 1-19 not crush l 15:00: or chew. [place] (Same As: Ecotrin) heparin No Notes: Memoria 1-18 porcine l 20:00: heparin [place] 00 potassium No Notes: Memori a phosphate + 1-18 (Same as: l Sodium 17:41: K [place] Chloride 00 Phosphate. 0.9% IV 250 ) [...] [place] 00 Infuse over 2 hours. Magnesium 2016- No 2 gm, 50 Adam whitney Sulfate 1-18 mL, Route: l 17:41: IVPB, Drug [place] 00 form: INJ, PRN, Dosing Weight 101.007, kg, [...] 30 day, Stop date: 11/12/15 11:40:00 Calcium 2016- No 2 gm, 20 Memori a Gluconate 1-18 mL, Route: l 17:41: IVPB, PRN, [place] 00 Dosing Weight 101.007, kg, PRN Abnormal Lab Result, For NON-ICU Patients Only., Start date: 10/13/15 11:41:00, Duration: 30 day, Stop date: 11/12/15 11:40:00 Magnesium No Notes: Memori a Oxide 1-18 (Same as: l 17:41: Mag-Ox [place] 00 400) Magnesium oxide 102kx=716b g elemental magnesium Dose=____m g magnesium oxide (___mg elemental magnesium) bumetanide No Notes: Memor ia 10 mg 1-18 (Same as: l 17:40: Bumex) [place] 00 Trazodone No Notes: Memori a 1-17 (Same As: l 12:53: Desyrel) [place] 00 Melatonin 3 No Notes: Adam whitney MG Extended -17 (Same as: l Release 06:51: Melatonin) Herm napoleon Tablet 00 Lasix No Notes: Memoria 1-16 (Same as: l 15:00: Lasix) [place] 00 MEDICATION WASTE Product Size: 40 mg Product Wasted: ___ mg Maalox No Notes: Memoria Advanced 1-16 (aluminum l Regular 15:00: hydroxide- Herm napoleon Strength 00 magnesium SUSP hyd-simeth icone 200-200-20 mg/5ml 30 ml ud ALEISHA) Fentanyl No Notes: Memoria 1-16 (Same as: l 12:57: Sublimaze) [place] 00 Preservat javi free. Lasix No Notes: Memoria 1-14 (Same as: l 19:00: Lasix) [place] 00 MEDICATION WASTE Product Size: 40 mg Product Wasted: ___ mg Lasix No Notes: Memoria 1-13 (Same as: l 15:00: Lasix) [place] 00 MEDICATION WASTE Product Size: 40 mg Product Wasted: _0__ mg Miralax No Notes: Memoria 1-13 Dissolve l 15:00: in 8 oz of [place] 00 water or juice. (Same as: Miralax) Bystolic No Notes: Memoria 1-13 (same as: l 15:00: Bystolic) [place] 00 Potassium No Notes: Memori a Chloride 20 1-13 (Same as: l MEQ 15:00: K-Dur 20) [place] Extended 00 "Do Not Release Crush" Tablet With food and full glass of water 24 HR No Notes: Memoria Nifedipine 1-13 (Same as: l 60 MG 15:00: Adalat CC, Maury n Extended 00 Procardia Release XL) Give Tablet on empty stomach. Take 1 hour before or 2 hours after meal; "Avoid grapefruit and grapefruit juice". Do not crush molasses No Notes: Memoria 1-13 (Same l 14:32: as:Molasse [place] 00 s) Simethicone No Notes: Adam whitney 1-12 (Same as: l 23:31: Mylicon) [place] Dulcolax No Notes: Memoria Laxative 1-12 (Same As: l 19:08: Dulcolax, [place] 00 Bisco-Lax) Bystolic No Notes: Memoria 1-12 (same as: l 19:07: Bystolic) [place] Magnesium No Notes: Memori a Oxide -12 (Same as: l 12:45: Mag-Ox [place] 400) Magnesium oxide 924gc=134g g elemental magnesium Dose=____m g magnesium oxide (___mg elemental magnesium) potassium No Notes: Memori a chloride 1-12 (Same as: l 12:44: K-Dur 20) [place] 00 "Do Not Crush" With food and full glass of water Calcium No Notes: Memoria Carbonate -12 (Same As: l 12:44: Tums) Calcium Carbonate 500 mg = 200 mg elemental calcium Dose = mg calcium carbonate ( mg elemental calcium) Lasix No Notes: Memoria 1-11 (Same as: l 23:00: Lasix) May cause GI upset. Give with food or milk. Hydralazine No Notes: Adam whitney 1-11 (Same as: l 04:56: Apresoline [place] 00 ) Push over 5 minutes Dulcolax No Notes: Memoria Laxative 1-09 (Same As: l 15:11: Dulcolax, [place] 00 Bisco-Lax) potassium No Notes: Memori a chloride 1- (Same as: l 12:46: K-Dur 20) [place] "Do Not Crush" With food and full glass of water Simethicone No Notes: Adam whitney 1-09 (Same as: l 08:54: Mylicon) [place] Amiodarone No Notes: Memor ia 1-08 (Same as: l 23:00: Cordarone) carvedilol No Notes: Memor ia 10-03 Give with l 17:32: food. [place] (Same As: Coreg) Acetaminoph No Notes: Do M emoria en 325 MG / 10-02 not exceed l Hydrocodone 19:35: 4gm/day of [place] Bitartrate 00 acetaminop 10 MG Oral hen. Tablet (Same as: [Rhodell Rhodell 10/325] 325/10) senna 8.6 No Notes: Memori a mg oral 10-02 (Same as: l tablet 18:29: Senokot) sodium No 50 ml, Memoria bicarbonate 10-02 Route: l 8.4% 00:27: IVP, Dosing Weight 97.273, kg, ONCE, Start date: 10/01/15 18:27:00, Stop date: 10/01/15 18:27:00 Dopamine No Notes: Memoria 10-01 (Same as: l 20:57: Intropin) Administer by either central venous catheter or peripheral ly-inserte d central catheter (PICC) line. Final conc = 3.2 mg/ml. Premix solution. Sodium No 500 mL, Memoria Chloride 10-01 1000 l 0.154 19:41: ml/hr, [place] MEQ/ML 00 Infuse Injectable Over: 0.5 Solution hr, Route: IV, 500, Drug form: INJ, ONCE, Priority: STAT, Dosing Weight 97.273 kg, Start date: 10/01/15 13:41:00, Duration: 1 doses or times, Stop date: 10/01/15 13:41:00 Dobutamine No Notes: Memor ia 10-01 (Same as: l 16:25: Dobutrex) Final conc = 4 mg/ml. Premix solution. Protect from light. pantoprazol No Notes: For Memoria e 10-01 IV push l 15:00: reconstitu te with 10 ml 0.9% sodium chloride and push over 2 minutes. (Same as: Protonix) Docusate No Notes: Memoria Sodium 100 10-01 (Same as: l MG Oral 15:00: Colace) [place] Capsule (Do Not [Colace] Crush) Aspirin 325 No Notes: Adam whitney MG Enteric 10-01 Take with l Coated 15:00: food. [place] Tablet Aspirin 300 No Notes: Adam whitney MG Rectal 10-01 Refrigerat l Suppository 15:00: e. Maury n 00 Dopamine No Notes: Memoria 10-01 (Same as: l 14:41: Intropin) [place] Administer by either central venous catheter or peripheral ly-inserte d central catheter (PICC) line. Final conc = 3.2 mg/ml. Premix solution. sodium No Notes: Memoria bicarbonate 10-01 (sodium l 8.4% 10:38: bicarb [place] 00 8.4% (1 mEq/ml) 50 ml VL) Sodium No 1,000 mL, Memori a Chloride 10-01 1,000 l 0.154 07:52: ml/hr, [place] MEQ/ML 00 Infuse Injectable Over: 1 Solution hr, Route: IV, 1,000, Drug form: INJ, ONCE, Priority: STAT, Dosing Weight 97.273 kg, Start date: 10/01/15 1:52:00, Duration: 1 doses or times, Stop date: 10/01/15 1:52:00 sodium No Notes: Memoria bicarbonate 10-01 (sodium l 8.4% 06:57: bicarb [place] 00 8.4% (1 mEq/ml) 50 ml VL) Dexmedetomi No Notes: Adam whitney dine 10-01 (Same as: l 05:16: Precedex) [place] calcium No 3,000 mg, Memor ia gluconate + 10-01 30 mL, l Sodium 04:41: Route: [place] Chloride 00 IVPB, 0.9% IV 100 ONCE, mL Start date: 09/30/15 22:41:00, Stop date: 09/30/15 22:41:00 ceFAZolin No Notes: Memori a (SCIP) 10-01 Same as: l 03:30: Ancef [place] sodium No Notes: Memoria bicarbonate 10-01 (sodium l 8.4% 03:09: bicarb [place] 00 8.4% (1 mEq/ml) 50 ml VL) atorvastati No Notes: Adam whitney n -06 (Same as: l 03:00: Lipitor) [place] 00 Vancomycin No 2000 mg: Me moria 6.67 MG/ML 06 infuse l Injectable 03:00: over 2.5 Her contreras Solution 00 hours MEDICATION WASTE Product Size: 1000 mg Product Wasted: ___ mg Sodium No 1,000 mL, Memori a Chloride 06 1,000 l 0.154 01:47: ml/hr, [place] MEQ/ML 00 Infuse Injectable Over: 1 Solution hr, Route: IV, 1,000, Drug form: INJ, ONCE, Priority: STAT, Dosing Weight 97.273 kg, Start date: 09/30/15 19:47:00, Duration: 1 doses or times, Stop date: 09/30/15 19:47:00 Neutra-Phos No Notes: Adam whitney -06 (Same as: l 01:44: Neutra-Stephanie [place] 00 s) Each 1.25 gm pkt has 250mg phosphorou s. Mix w/2.5oz water and stir. Magnesium No 2 gm, 50 Adam whitney Sulfate 1-06 mL, Route: l 01:44: IVPB, Drug [place] 00 form: INJ, PRN, Dosing Weight 97.273, [...] l 01:44: Potassium [place] 00 Chloride) Calcium 0 No 1 gm, 10 Memori a Gluconate 1-06 mL, Route: l 01:44: IVPB, PRN, [place] 00 Dosing Weight 97.273, kg, PRN Abnormal Lab Result, Start date: 09/30/15 19:44:00, Duration: 30 day, Stop date: 10/30/15 19:43:00, FOR ICU USE ONLY Magnesium No Notes: Memori a Oxide -06 (Same as: l 01:44: Mag-Ox [place] 00 400) Magnesium oxide 892ys=027g g elemental magnesium Dose=____m g magnesium oxide (___mg elemental magnesium) Calcium No Notes: Memoria Carbonate -06 (Same As: l 500 MG 01:44: Tums) [place] Chewable 00 Calcium Tablet Carbonate 500 mg = 200 mg elemental calcium Dose = mg calcium carbonate ( mg elemental calcium) potassium No Notes: Memori a phosphate + -06 (Same as: l Sodium 01:44: K [place] Chloride 00 Phosphate. 0.9% IV 250 ) 1 mMol mL phoshate has 1.47 mEq potassium Infuse over 4 hours Glucagon No 1 mg, Memoria 1-06 Route: IM, l 01:43: Drug form: [place] PDR/INJ, PRN, Dosing Weight 97.273, kg, PRN Blood Glucose Results, Start date: 09/30/15 19:43:00, Duration: 30 day, Stop date: 10/30/15 19:42:00 Insulin No 60 Memoria regular 1-06 units) l 01:43: Stable for [place] 00 28 days at room temperatur e Expires in days from ____Date Dextrose No 12.5 gm, Memor ia 50% Syringe -06 25 mL, l 01:43: Route: [place] 00 IVP, Drug Form: INJ, Dosing Weight 97.273, kg, PRN, PRN Blood Glucose Results, Start date: 09/30/15 19:43:00, Duration: 30 day, Stop date: 10/30/15 19:42:00 Isolyte S No Notes: Memori a PH 7.4 1-06 (Same as: l 1,000 mL 00:34: Isolyte S Herm napoleon PH 7.4) Fentanyl No 1,000 Memoria 1-06 microgram, l 00:34: 20 mL, [place] Rate: Titrate, Start Dose: 50 microgram/ hr, Titration: 25 microgram/ hour every 15 minutes, Goal(s): RASS (0) to (-2), Max Dose: 300 microgram/ hr, Route: IV, Dosing Weight 97.273 kg, Total Volume: 20, Start date: 09/30/15 18:34:... Fentanyl No Notes: Memoria - Concentrat l 00:00: ion is 20 [place] 00 micrograms /ml Naloxone No Notes: Memoria 09-30 Same as l 23:40: Narcan [place] Ondansetron No Notes: Adam whitney 0.8 MG/ML 09-30 (Same as: l Oral 23:40: Zofran) [place] Solution 00 [Zofran] Acetaminoph No Notes: Do M emoria en 325 MG / 1-05 not exceed l Hydrocodone 23:40: 4gm/day of [place] Bitartrate 00 acetaminop 10 MG Oral hen. Tablet (Same as: [place]odell 325/10) Fentanyl No Notes: Memoria 09-30 (Same as: l 23:40: Sublimaze) Preservat javi free. Acetaminoph No Notes: Do M emoria en -05 not exceed l 23:40: 4 gm/day. [place] (Same as: Tylenol) protamine No Route: IV, Me moria (ANES) 09-30 Drug form: l 22:31: INJ, ONCE, [place] 00 Stop date: 09/30/15 16:31:00 DOPamine No Route: IV, Mem oria (ANES) 09-30 Drug form: l (ANES) 22:10: INJ, Start Danette nn 00 date: 09/30/15 16:10:00, Stop date: 09/30/15 17:10:00 acetaminoph No Route: IV, Memoria en (ANES) 09-30 Drug form: l (ANES) 21:40: INJ, Start Danette nn 00 date: 09/30/15 15:40:00, Stop date: 09/30/15 16:40:00 Ancef No 1 gm, Memoria 1-05 Route: l 19:24: IVPB, [place] 00 ONCE, Dosing Weight 97.273, kg, Start date: 09/30/15 13:24:00, Duration: 1 doses or times, Stop date: 09/30/15 13:24:00, Surgical Prophylaxi s Only; For patients < 120 kg midazolam No Route: IV, Me moria (ANES) 1 Drug form: l 18:10: SOLN, [place] 00 ONCE, Stop date: 09/30/15 12:10:00 heparin No Route: IV, Adam whitney (ANES) 09-30 Drug form: l 18:00: INJ, ONCE, [place] Stop date: 09/30/15 12:00:00 niCARdipine No Route: IV, Memoria (ANES) + 09-30 Drug form: l sodium 18:00: INJ, ONCE, Danette nn chloride 00 Stop date: (ANES) 09/30/15 (ANES) 12:00:00 tranexamic No Route: IV, M emoria acid (ANES) 1- Drug form: l 17:25: INJ, ONCE, [place] Stop date: 09/30/15 11:25:00 ceFAZolin No Route: IV, Me moria (ANES) 1-05 Drug form: l 17:25: INJ, ONCE, [place] Stop date: 09/30/15 11:25:00 lidocaine No Route: IV, Me moria (ANES) 1-05 Drug form: l 17:05: INJ, ONCE, [place] Stop date: 09/30/15 11:05:00 propofol No Route: IV, Mem oria (ANES) 105 Drug form: l 16:55: INJ, ONCE, [place] Stop date: 09/30/15 10:55:00 rocuronium No Route: IV, M emoria (ANES) 1-05 Drug form: l 16:10: INJ, ONCE, Stop date: 09/30/15 10:10:00 fentaNYL 2015- No Route: IV, Mem oria (ANES) 1-05 Drug form: l 16:05: INJ, ONCE, Stop date: 09/30/15 10:05:00 cefepime No Route: IV, Mem oria (ANES) 1-05 Drug form: l 16:00: INJ, ONCE, Stop date: 09/30/15 10:00:00 dexmedetomi No Route: IV, Memoria dine (ANES) 09-30 Drug form: l (ANES) 15:48: INJ, Start date: 09/30/15 9:48:00, Stop date: 09/30/15 10:48:00 ropivacaine No Notes: Adam whitney 400 mL 1-05 Final l 15:47: concentrat ion: Ropivacain e 0.2% 400 ml ropivacaine No Notes: Adam whitney 400 mL 1-05 Final l 15:46: concentrat ion: Ropivacain e 0.2% 400 ml Ancef No 2 gm, Memoria 1-05 Route: l 15:26: IVPB, ONCE, Dosing Weight 97.273, kg, Start date: 09/30/15 9:26:00, Duration: 1 doses or times, Stop date: 09/30/15 9:26:00, Surgical Prophylaxi s Only; For patients < 120 kg pantoprazol No Notes: Adam whitney e 1-05 Tablet l 15:00: should not be chewed or crushed. (Same as: Protonix) 24 HR No Notes: Memoria Nifedipine 1-05 (Same l 90 MG 15:00: as:Adalat [place] Extended 00 CC, Release Procardia Tablet XL) Give on empty stomach. Take 1 hour before or 2 hours after meal; "Avoid grapefruit and grapefruit juice". Do not crush Losartan No Notes: Memoria 1-05 (Same as: l 15:00: Cozaar) Aspirin No Notes: Memoria 1-05 Take with l 15:00: food. [place] 00 PlasmaLyte No Route: IV, M jacob A PH-7.4 1-05 Total l (ANES) 14:20: Volume: Turner (ANES) 00 1,000, Start date: 09/30/15 8:20:00, Stop date: 09/30/15 9:20:00 Clonidine No Notes: Memori a Hydrochlori -05 (Same As: l de 0.1 MG 04:00: Catapres) Her contreras Oral Tablet 00 atorvastati No Notes: Adam whitney n 1-05 (Same As: l 03:00: Lipitor) [place] Magnesium No 2 gm, 50 Adam whitney Sulfate 1-05 mL, Route: l 01:19: IVPB, Drug [place] form: INJ, PRN, Dosing Weight 97.273, kg, PRN Abnormal Lab Result, For NON-ICU Patients Only., Start date: 09/29/15 19:19:00, Duration: 30 day, Stop date: 10/29/15 19:18:00 Calcium No 3 gm, 30 Memori a Gluconate 1-05 mL, Route: l 01:19: IVPB, Drug [place] form: INJ, PRN, Dosing Weight 97.273, kg, PRN Abnormal Lab Result, For NON-ICU Patients Only., Start date: 09/29/15 19:19:00, Duration: 30 day, Stop date: 10/29/15 19:18:00 Magnesium No Notes: Memori a Oxide 1-05 (Same as: l 01:19: Mag-Ox [place] 00 400) Magnesium oxide 518sb=570h g elemental magnesium Dose=____m g magnesium oxide (___mg elemental magnesium) potassium No Notes: Memori a phosphate + 1-05 (Same as: l Sodium 01:19: K [place] Chloride 00 Phosphate. 0.9% IV [...] Memori a chloride 1-05 (Same as: l 01:19: KCL) [place] 00 Infuse over 2 hours. potassium No [...] Notes: Adam whitney en 325 MG / 1-05 (Same as: l Hydrocodone 01:19: Rhodell Danette nn Bitartrate 00 325/5) Do 5 MG Oral not exceed Tablet 4gm/day of acetaminop hen. Ondansetron No Notes: Adam whitney 1-05 (Same as: l 01:19: Zofran) [place] 00 MEDICATION WASTE Product Size: 4 mg Product Wasted: ___ mg Sodium No 250 mL, Memoria Chloride 1-04 250 ml/hr, l 0.154 22:49: Infuse [place] MEQ/ML 00 Over: 1 Injectable hr, Route: Solution IV, 250, Drug form: INJ, ONCE, Priority: Routine, Dosing Weight 97.818 kg, Start date: 09/29/15 16:49:00, Duration: 1 doses or times, Stop date: 09/29/15 16:49:00 Sodium No 250 mL, Memoria Chloride 1-04 Rate: On l 0.9% 21:28: call for [place] (titrate) 00 use with 250 mL blood product administra tion, Dosing Weight 110.4, kg, Route: IV, Total Volume: 250, Start Date: 09/29/15 15:28:00, Duration: 30 day, Stop date: 10/29/15 15:27:00, Replace Every: 24 hr Lyrica No Notes: Memoria 1- (Same as: l 21:28: Lyrica) [place] 00 Lyrica No Notes: Memoria 1- (Same as: l 12:00: Lyrica) Metformin 2014-09 Yes 500 mg = 1 Me moria hydrochlori 2-30 tab, PO, l de 500 MG 22:56: Before Maury n Oral Tablet 00 Dinner, # 30 tab, 0 Refill(s) Iohexol 2014-09 No Notes: Memoria - (same l 21:33: as:Omnipaq [place] 00 ue 350). atorvastati 2014-09 Yes 20 mg = 1 M emoria n 20 mg 2-28 tab, PO, l oral tablet 19:31: Bedtime, # [place] 00 30 tab, 2 Refill(s) Physical 2014-09 Yes See Memoria Therapy 11-23 Instructio l 18:43: ns, MISC, 00 ONCALL, Evaluate and Treat _3__ times per [...] MEQ/ML 13:35: PO, Drug He rm Oral 00 form: LIQ, Solution ONCE, Dosing Weight 110.4, kg, Start date: 09/22/15 7:35:00, Stop date: 09/22/15 7:35:00 potassium 2014-09 No Notes: Memori a chloride - (Same as: l 23:00: K-Dur 20) "Do Not Crush" With food and full glass of water Clonidine 2014-09 No Notes: Memori a Hydrochlori 2-27 (Same As: l de 0.1 MG 21:00: Catapres) Her contreras Oral Tablet 00 torsemide 2014-09 No Notes: Memori a 2-27 (Same As: l 19:45: Demadex) [place] 24 HR 2014-09 No Notes: Memoria Nifedipine 2-27 (Same l 90 MG 15:00: as:Adalat [place] [...] as: l 1.33 MEQ/ML 13:29: Potassium H erm Oral 00 Chloride) Solution Losartan 2014-09 No Notes: Memoria 2-27 (Same as: l 10:11: Cozaar) [place] Bystolic 2014-09 No Notes: Memoria 2-27 (same as: l 10:10: Bystolic) [place] 24 HR 2014-09 No 90 mg, 1 [...] Memoria 2-27 Take with l 03:44: food. torsemide 2014-09 Yes 20 mg = 1 Mem oria 20 mg oral 2-27 tab, PO, l tablet 03:07: Daily, # [place] 00 30 tab, 1 Refill(s) nebivolol 2014-09 Yes 20 mg = 2 Mem oria 10 MG Oral 2-27 tab, PO, l Tablet 03:07: Daily, # [place] [Bystolic] 00 60 tab, 0 Refill(s) 24 HR 2014-09 Yes 90 mg = 1 Memoria Nifedipine 2-27 tab, PO, l 90 MG 03:07: Daily, # [place] Extended 00 30 tab, 0 Release Refill(s) Tablet Potassium 2014-09 Yes 20 mEq = 1 Me moria Chloride 20 2-27 tab, PO, l MEQ 03:07: BID, # 60 [place] Extended 00 tab, 0 Release Refill(s) Tablet [...] n 2-27 (Same As: l 03:00: Lipitor) [place] 00 Clonidine 2014-09 Yes 0.1 mg = 1 Me moria Hydrochlori 2-26 tab, PO, l de 0.1 MG 18:12: TID, 0 Maury n Oral Tablet 00 Refill(s) losartan 2014-09 Yes 100 mg = 1 Mem oria 100 mg oral 2-26 tab, PO, l tablet 18:12: Daily, # [place] 00 30 tab, 0 Refill(s) Metformin 2014-09 No 500 mg = 1 Me moria hydrochlori 2-26 tab, PO, l de 500 MG 18:12: Before Maury n Oral Tablet 00 Dinner, # 30 tab, 0 Refill(s) clopidogrel 2014-09 No 75 mg = 1 M emoria 75 mg oral 2-26 tab, PO, l tablet 18:12: Daily, # [place] 00 30 tab, 0 Refill(s) Saline 2014-09 No Notes: Memoria Flush 0.9% -26 (Same as: l 15:00: BD [place] 00 Posiflush) Docusate 2014-09 No Notes: Memoria 2-26 (Same as: l 15:00: Colace) [place] (Do Not Crush) sennosides, 2014-09 No Notes: Adam whitney [facility]URSING HOME 2-26 (Same as: l 15:00: Senokot) [place] potassium 2014-09 No Notes: Memori a chloride 2-26 (Same as: l 12:00: KCL) [place] 00 Infuse no faster than 10 mEq/hr if given peripheral ly. magnesium 2014-09 No 2 gm, 50 Adam whitney sulfate 2-26 mL, Route: l 11:00: IVPB, Drug form: INJ, ONCE, Start date: 09/20/15 5:00:00, Stop date: 09/20/15 5:00:00 Hydralazine 2014-09 No Notes: Adam wihtney 2-26 (Same as: l 10:48: Apresoline ) [...] No 6.25 gm, Memor ia 50% Syringe 2-26 12.5 mL, l 03:52: Route: [place] 00 IVP, Drug Form: INJ, Dosing Weight 100, kg, PRN, PRN Abnormal Lab Result, Start date: 09/19/15 21:52:00, Duration: 30 day, Stop date: 10/19/15 21:51:00 Saline 2014-09 No Notes: Memoria Flush 0.9% 2-26 (Same as: l 03:50: BD [place] 00 Posiflush) Acetaminoph 2014-09 No Notes: Do M emoria en - not exceed l 03:50: 4 gm/day. [place] 00 (Same as: Tylenol) Ondansetron 2014-09 No Notes: Adam whitney - (Same as: l 03:50: Zofran) MEDICATION WASTE Product Size: 4 mg Product Wasted: __0_ mg Nicardipine 2014-09 No Notes: Adam whitney 2- Same as: l 03:50: Cardene [place] 00 Concentrat ion: (0.2 mg /1 ml ) Labetalol 2014-09 No 105 mmHg, Me moria - Priority: l 03:50: Routine, [place] 00 Start date: 09/19/15 21:50:00, Duration: 30 day, Stop date: 10/19/15 21:49:00 Bisacodyl 2014-09 No Notes: Memori a 2-26 (Same As: l 03:50: Dulcolax, Bisco-Lax) Sodium 2014-09 No 1,000 mL, Memori a Chloride - Rate: 50 l 0.154 03:50: ml/hr, MEQ/ML 00 Infuse Injectable over: 20 Solution hr, Route: IV, Dosing Weight 100 kg, Total Volume: 1,000, Start date: 09/19/15 21:50:00, Duration: 30 day, Stop date: 10/19/15 21:49:00 Saline 2014-09 No Notes: Memoria Flush 0.9% 2-26 Same as: l 02:57: BD [place] 00 Posiflush Sterile Vital Signs Vital Name Observation Time Observation Value Comments Source Systolic blood 2020-07-07 08:35:00 154 mm[Hg] Efrem n [facility] pressure Diastolic blood 2020-07-07 08:35:00 87 mm[Hg] Becky on [facility] pressure Heart rate 2020-07-07 08:35:00 73 /min Musa Blandon Respiratory rate 2020-07-07 08:35:00 21 /min Jarod ton [facility] Oxygen saturation in 2020-07-07 08:35:00 95 /min Musa Blandon Arterial blood by Pulse oximetry Body height 2020-07-07 06:18:00 185.4 cm [place] [facility] Body weight 2020-07-07 06:18:00 86.637 kg [place] [facility] BMI 2020-07-07 06:18:00 25.20 kg/m2 [place] [facility] Body temperature 2020-07-07 05:56:00 36.06 Stella Hous [place] [facility] Heart Rate 2017-02-18 13:49:00 [facility] [place] Height 2017-02-18 13:49:00 179.58 cm [facility] [place] BMI Calculated 2017-02-18 13:49:00 Memori al [place] Weight 2017-02-18 13:49:00 [facility] [place] Systolic (mm Hg) 2017-02-18 13:49:00 Adam rial [place] Diastolic (mm Hg) 2017-02-18 13:49:00 Mem orial [place] Temperature Oral (F) 2016-02-20 15:06:00 98.1 F [facility] [place] BMI Calculated 2016-02-20 15:06:00 [facility] al [place] Weight 2016-02-20 15:06:00 [facility] [place] Height 2016-02-20 15:06:00 185.42 cm [facility] [place] Systolic (mm Hg) 2016-02-20 15:06:00 Adam rial [place] Diastolic (mm Hg) 2016-02-20 15:06:00 Mem orial [place] Respitory Rate 2016-02-20 15:06:00 Memori al [place] Heart Rate 2016-02-20 15:06:00 [facility] [place] Height 2016-01-29 19:21:00 185.42 cm [facility] [place] Weight 2016-01-29 19:21:00 [facility] [place] BMI Calculated 2016-01-29 19:21:00 Memori al [place] Systolic (mm Hg) 2016-01-29 19:21:00 Adam rial [place] Diastolic (mm Hg) 2016-01-29 19:21:00 Mem orial [place] Temperature Oral (F) 2016-01-29 19:21:00 97.6 F [facility] [place] Respitory Rate 2016-01-29 19:21:00 Memori al [place] Heart Rate 2016-01-29 19:21:00 [facility] [place] Respitory Rate 2016-01-02 16:30:00 Memori al [place] Systolic (mm Hg) 2016-01-02 16:30:00 Adam rial [place] Diastolic (mm Hg) 2016-01-02 16:30:00 Mem orial [place] Respitory Rate 2016-01-02 16:15:00 Memori al [place] Systolic (mm Hg) 2016-01-02 16:15:00 Adam rial [place] Diastolic (mm Hg) 2016-01-02 16:15:00 Mem orial [place] Respitory Rate 2016-01-02 16:00:00 Memori al [place] Systolic (mm Hg) 2016-01-02 16:00:00 Adam rial [place] Diastolic (mm Hg) 2016-01-02 16:00:00 Mem orial [place] BMI Calculated 2016-01-02 15:33:00 [facility] al [place] Weight 2016-01-02 15:33:00 [facility] [place] Height 2016-01-02 15:33:00 177.8 cm [facility] [place] Temperature Oral (F) 2016-01-02 14:00:00 98.6 F [facility] [place] Weight 2015-11-14 21:05:00 [facility] [place] BMI Calculated 2015-11-14 21:05:00 Memori al [place] Height 2015-11-14 21:05:00 185.42 cm [facility] [place] Respitory Rate 2015-11-14 21:05:00 Memori al [place] Heart Rate 2015-11-14 21:05:00 [facility] [place] Temperature Oral (F) 2015-11-14 21:05:00 97.6 F [facility] [place] Systolic (mm Hg) 2015-11-14 21:05:00 Adam rial [place] Diastolic (mm Hg) 2015-11-14 21:05:00 Mem orial [place] BMI Calculated 2015-10-29 19:35:00 Memori al [place] Weight 2015-10-29 19:35:00 [facility] [place] Systolic (mm Hg) 2015-10-29 19:35:00 Adam rial [place] Diastolic (mm Hg) 2015-10-29 19:35:00 Mem orial [place] Heart Rate 2015-10-29 19:35:00 [facility] [place] Respitory Rate 2015-10-29 19:35:00 Memori al [place] Temperature Oral (F) 2015-10-29 19:35:00 97.0 F [facility] [place] Height 2015-10-29 19:35:00 185.4 cm [facility] [place] Temperature Oral (F) 2015-10-29 17:39:00 97.0 F [facility] [place] Respitory Rate 2015-10-29 17:39:00 Memori al [place] Heart Rate 2015-10-29 17:39:00 [facility] [place] Systolic (mm Hg) 2015-10-29 17:39:00 Adam rial [place] Diastolic (mm Hg) 2015-10-29 17:39:00 Mem orial [place] BMI Calculated 2015-10-29 17:39:00 Memori al [place] Weight 2015-10-29 17:39:00 [facility] [place] Height 2015-10-29 17:39:00 185.4 cm [facility] [place] Weight 2015-10-22 23:03:00 [facility] [place] BMI Calculated 2015-10-22 23:03:00 Memori al [place] Height 2015-10-22 23:03:00 185.42 cm [facility] [place] Systolic (mm Hg) 2015-10-22 23:03:00 Daam rial [place] Diastolic (mm Hg) 2015-10-22 23:03:00 Mem orial [place] Heart Rate 2015-10-22 23:03:00 [facility] [place] Temperature Oral (F) 2015-10-22 23:03:00 97.6 F [facility] [place] Respitory Rate 2015-10-22 23:03:00 Memori al [place] Systolic (mm Hg) 2015-10-20 20:40:00 Adam rial [place] Diastolic (mm Hg) 2015-10-20 20:40:00 Mem orial [place] Respitory Rate 2015-10-20 20:40:00 Memori al [place] Respitory Rate 2015-10-20 18:00:00 Memori al [place] Systolic (mm Hg) 2015-10-20 18:00:00 Adam rial [place] Diastolic (mm Hg) 2015-10-20 18:00:00 Mem orial [place] Systolic (mm Hg) 2015-10-20 16:00:00 Adam rial [place] Diastolic (mm Hg) 2015-10-20 16:00:00 Mem orial [place] Respitory Rate 2015-10-20 16:00:00 Memori al [place] Temperature Oral (F) 2015-10-20 10:00:00 98.6 F [facility] [place] Temperature Oral (F) 2015-10-20 06:00:00 97.9 F [facility] [place] Temperature Oral (F) 2015-10-20 02:08:00 98.7 F [facility] [place] Weight 2015-10-09 10:58:00 [facility] [place] Heart Rate 2015-10-02 04:00:00 [facility] [place] Heart Rate 2015-10-02 03:45:00 [facility] [place] Heart Rate 2015-10-02 03:30:00 [facility] [place] Systolic (mm Hg) 2015-09-29 23:22:00 Adam rial [place] Diastolic (mm Hg) 2015-09-29 23:22:00 Mem orial [place] Height 2015-09-29 23:22:00 185.42 cm [facility] [place] BMI Calculated 2015-09-29 23:22:00 Memori al [place] Weight 2015-09-29 23:22:00 [facility] [place] Temperature Oral (F) 2015-09-29 23:22:00 98.7 F [facility] [place] Heart Rate 2015-09-29 23:22:00 [facility] [place] BMI Calculated 2015-09-29 22:40:00 [facility] al [place] Weight 2015-09-29 22:40:00 [facility] [place] Height 2015-09-29 22:40:00 185.42 cm [facility] [place] Systolic (mm Hg) 2015-09-22 23:50:00 Adam rial [place] Diastolic (mm Hg) 2015-09-22 23:50:00 Mem orial [place] Heart Rate 2015-09-22 23:50:00 [facility] [place] Respitory Rate 2015-09-22 23:50:00 Memori al [place] Heart Rate 2015-09-22 18:20:00 [facility] [place] Systolic (mm Hg) 2015-09-22 18:20:00 Adam rial [place] Diastolic (mm Hg) 2015-09-22 18:20:00 Mem orial [place] Respitory Rate 2015-09-22 18:20:00 Memori al [place] Systolic (mm Hg) 2015-09-22 17:20:00 Adam rial [place] Diastolic (mm Hg) 2015-09-22 17:20:00 Mem orial [place] Respitory Rate 2015-09-22 14:00:00 Memori al [place] Heart Rate 2015-09-20 09:54:00 [facility] [place] Weight 2015-09-20 05:44:00 [facility] BMI Calculated 2015-09-20 05:44:00 Memaron al [place] Height 2015-09-20 05:44:00 185.42 cm [facility] Temperature Oral (F) 2015-09-20 03:24:00 96.7 F [facility] Weight 2015-09-20 02:45:00 [facility] BMI Calculated 2015-09-20 02:45:00 Memori reymundo [place] Height 2015-09-20 02:45:00 185.42 cm [facility] Procedures Procedure Date / Time Performed Performing Clinician [facility] e ECG 12-LEAD 2020-07-07 08:09:46 Osbaldo Casey EP CARDIOVERSION 2020-07-07 08:05:20 Osbaldo Casey ESTIMATED GFR 2020-07-07 06:39:00 Osbaldo Casey odist POC PANEL 2020-07-07 06:39:00 Osbaldo Casey ECG PRE/POST OP 2020-07-07 05:49:19 Osbaldo Casey odletitia MAGNESIUM LEVEL 2020-07-03 10:59:00 JacintosObaldo odist PROTHROMBIN TIME WITH INR 2020-07-03 10:59:00 Osbaldo Casey HC COMPLETE BLD COUNT 2020-07-03 10:59:00 Osbaldo Casey W/AUTO DIFF COMPREHENSIVE METABOLIC 2020-07-03 10:59:00 Osbaldo Casey Shinto PANEL ESTIMATED GFR 2020-07-03 10:59:00 Osbaldo Casey COVID-19 QUALITATIVE PCR 2020-07-03 10:50:00 Osbaldo Casey CV CTA CORONARY PRE AFIB 2020 10:53:54 Osbaldo Casey PULMONARY VEIN MAPPING POC CREATININE 2020 10:09:00 Osbaldo Casey odist ESTIMATED GFR 2020 10:09:00 Osbaldo Casey odletitia Lithotripsy 1990-09-26 00:00:00 [facility] Fusion of joint of 1977-09-26 06:00:00 [facility] cervical spine with internal fixation by anterior approach Kidney - local excision 1951-09-26 00:00:00 Adam ritchie [place] Operation<sup>1</sup> [facility] Plan of Care Planned Activity Planned Date Details Comments Source Future Scheduled 2020-04-26 INFLUENZA VACCINE [place] [facility] 00:00:00 [code = INFLUENZA VACCINE] Future Scheduled 2006 65+ PNEUMOCOCCAL [facility] Test 00:00:00 VACCINE (1 of 1 - PPSV23) [code = 65+ PNEUMOCOCCAL VACCINE (1 of 1 - PPSV23)] Future Scheduled 1991 SHINGLES VACCINES (#1) [facility] Test 00:00:00 [code = SHINGLES VACCINES (#1)] Encounters Start End Encounter Admission Attending Care Care Encounter Source Date/Time Date/Time Type Type Clinicians Facility Department ID 2020-07-07 2020-07-07 Outpatient JACINTO, [facility] [id number] [place] 00:00:00 00:00:00 NADIM 214 Method i 2020-07-03 2020-07-03 [id number] [place] 00:00:00 00:00:00 NADIM [address] 2020 2020 [facility] [id number] [place] 00:00:00 00:00:00 NADIM [address] 2017-02-18 2017-02-18 Outpatient Julio [facility] [id number] 08:33:00 23:59:00 Stewart 2016-12-21 2016-12-22 Outpatient 2.16.840. 2.16.840.1. [id number] 13:40:00 23:59:59 [id number] 3.615.91 5.91 2016-10-22 2016-10-23 Outpatient 2.16.840. 2.16.840.1. [id number] 15:28:00 23:59:59 [id number] 3.615.91 5.91 2016-04-14 2016-04-15 Outpatient 2.16.840. 2.16.840.1. [id number] 16:10:00 23:59:59 [id number] 3.615.91 5.91 2016-02-24 2016-02-25 Outpatient 2.16.840. 2.16.840.1. 6 [id number] 09:02:00 23:59:59 [id number] 3.615.91 5.91 2016-02-20 2016-02-20 Outpatient Julio [facility] [id number] 09:26:00 23:59:00 Stewart 48 2016-01-29 2016-01-29 Outpatient Jyothryder, [facility] [id number] 12:31:00 23:59:00 Soma 2016-01-13 2016-01-14 Outpatient 2.16.840. 2.16.840.1. [id number] 17:19:00 23:59:59 [id number] 3.615.91 5.91 2016-01-02 2016-01-02 Outpatient Fernando [facility] [id number] 08:30:00 12:08:00 Carson 05 Mandeep 2015-11-14 2015-11-14 [id number] 12:50:00 23:59:00 Carson Ariana Mandeep 2015-11-14 2015-11-14 Outpatient Fernando [facility] [id number] 10:37:00 23:59:00 Carson 50 Mandeep 2015-10-29 2015-10-29 Outpatient Evitaannmarieshiva [facility] [id number] 11:05:00 23:59:00 Soma 2015-10-22 2015-10-22 Outpatient Julio [facility] [id number] 15:57:00 23:59:00 Stewart 00 2015-09-29 2015-10-20 Outpatient Fernando [facility] [id number] 16:10:00 16:40:00 Carson 04 Mandeep 2015-09-29 2015-09-29 Outpatient Fernando [facility] [id number] 15:46:00 23:59:00 Carson Kaufman 2015-09-19 2015-09-22 Outpatient Thanh [facility] [id number] 20:47:00 18:09:00 Mario Mac Results Test Description Test Test Results Result Source Time Comments Comments Electrophysiology Osbaldo Casey Jr., MD [place] procedure 16 Physician [facility]into 14:35:47 Electrophysiology Brief Op Note Signed Date of Service: 07/07/2020 7:49 AM Procedure: EP CARDIOVERSION Case Time: 07/07/2020 7:49 AM Surgeon: Osbaldo Casey Jr., MD Signed []Hide copied text []Hover for details Cardioversion Operative Note Donell Valle Jr., [id number] y.o. male 07/07/2020; [facility] WT CATH AOD PROC RM 1 Procedure(s):EP CARDIOVERSION Tolerated procedure well Condition: stableComplications: None; patient tolerated the procedure well.Findings: The patient was identified and consent reconfirmed prior to the procedure The baseline rhythm was atrial fibrillation Anesthesia was given When the patient was adequately sedated, synchronized DC CVN was performed converting the patient to sinus The patient awoke without sequelae Procedure Details See above Pre-op Diagnosis: Persistent atrial fibrillation (HCC) [I48.19] Post-Op Diagnosis Codes: * Persistent atrial fibrillation (HCC) [I48.19] Surgeon(s) and Role: * Osbaldo Casey Jr., MD - Primary Anesthesia: Monitor Anesthesia Care Blood Products Administered: none Estimated Blood Loss: 0 mL Sheath/IV: No LDAs Documented Specimens: * No specimens in log * Grafts/Implants: None Osbaldo Casey Jr., MD Date: 07/07/2020 Time: 8:10 AM Osbaldo Casey Jr., MD [facility] Beef Selector Electrophysiology LabTexas Health [facility] Vascular CenterElected Fulda Chair, Department of CardiologyOffice [phone] ECG 12 lead 2020-07-07 10:15:40 Test Item Value Reference Range Interpretation Comme nts Ventricular rate (test code = 253) 61 Atrial rate (test code = 255) 61 HI interval (test code = 266) 250 QRSD interval (test code = 260) 98 QT interval (test code = 264) 474 QTC interval (test code = 265) 477 P axis 1 (test code = 267) 76 QRS axis 1 (test code = 268) 8 T wave axis (test code = 270) 71 EKG impression (test code = 273) Sinus rhythm with 1st degree AV bl ock with premature atrial complexes-Otherwise normal ECG- Musa MethodistECG Pre/Post [id number] 07:56:12 Test Item Value Reference Range Interpretation Comments Ventricular rate (test 63 code = 253) Atrial rate (test code = 66 255) QRSD interval (test code 98 = 260) QT interval (test code = 450 264) QTC interval (test code = 460 265) QRS axis 1 (test code = 26 268) T wave axis (test code = 78 270) EKG impression (test code Atrial = 273) fibrillation-Electro nically Signed By Anton Casey MD ([id number]) on 07/07/2020 7:56:05 AM Musa MethodistPOC [id number] 06:57:06 Test Item Value Reference Range Interpretation Comments POC sodium (test code 140 mmol/L 135-148 = 2947-0) POC potassium (test 4.4 mmol/L 3.5-5 code = 6298-4) POC chloride (test 104 mmol/L 99-109 code = 2069-3) POC CO2 (test code = 24 mmol/L 24-31 65316-9) POC glucose (test code 121 mg/dL 65-99 H = 2339-0) POC BUN (test code = 27 mg/dL 8-24 H 6299-2) POC creatinine (test 1.0 mg/dl 0.7-1.2 code = 21584-7) POC hematocrit (test 46 % 41-51 code = 4544-3) POC anion gap (test 18 mmol/L 8-20 Marketing Program Manager Name: code = 7647290) Noy Hyde I D: [id number] Lab Interpretation Abnormal (test code = 90021-3) Musa MethodistEstimated [id number] 06:57:06 Test Item Value Reference Range Interpretation Comments Estimated GFR (test 71 mL/min/1.73 m2 Caterg ory Units code = 68122-7) Interpretati onG1 >=90 Normal or highG2 60-89 Mildly euypdboefF3x 45-59 Mildly to mode rately imcgvlityB5u 30-44 Moderately to severely decreasedG4 15-29 Severely decre asedG5 <15 Kidn ey failureThe eGFR was calculated laverne ace the Chronic Kidney Disease Epidemiology Co llaboration (CKD-EPI) equat ion. Interpretation is based on recommendations of the National Kidney Foundation-Kidn ey Disease Outcomes Qualit y Initiative (NKF-KDOQI) pub lished in 2014. Vigil MethodistCOVID-19 qualitative [id number] 16:10:16 Test Item Value Reference Range Interpretation Comments Interpretation (test Negative results do code = 2696738) not preclude 2019-nCoV infection and should not be used as the sole basis for treatment or other patient management decisions. Negative results must be combined with clinical observations, patient history, and epidemiological information. COVID-19 qualitative Not-Detected Not-Detected PCR result (test code = 99573-6) COVID-19 qualitative See link below for C ase Number: PCR (test code = PDF Lab Report [id number]) [facility]Com[facility] metabolic rzzdh9011-70-67 12:04:11 Test Item Value Reference Range Interpretation Comments Sodium (test code = 138 135- 148 mEq/L 2951-2) Potassium (test code = 5.5 3.5- 5.0 mEq/L H 2823-3) Chloride (test code = 100 98- 112 mEq/L 5-0) CO2 (test code = 2027-9) 27 24- 31 mEq/L Anion gap (test code = 11@ANIO 7- 15 mEq/L 25431-3) BUN (test code = 3094-0) 25 mg/dL 8-23 H Creatinine (test code = 1.20 mg/dL 0.7-1.2 2160-0) Glucose (test code = 106 mg/dL 65-99 H 2345-7) Calcium (test code = 10.1 mg/dL 8.8-10.2 86232-4) Protein (test code = 8.0 g/dL 6.3-8.3 -[place] n 2885-2) 4.6-7.0 g/dL1 week 4.4-7 .6 g/dL7 months-1y ear 5.1-7 .3 g/dL1-2 years 5.6-7 .5 g/dL>3 years 6.0-8 .0 g/lP11-827 6.3-8 .3 g/dL Albumin (test code = 3.5 g/dL 3.5-5 175-7) A/G ratio (test code = 0.8 0.7-3.8 1759-0) Alkaline phosphatase 129 U/L 40-129 (test code = 6768-6) AST (test code = 1920-8) 28 U/L 10-50 ALT (test code = 1742-6) 39 U/L 5-50 Total bilirubin (test 0.7 mg/dL 0-1.2 code = 1974-) Lab Interpretation (test Abnormal code = 86578-5) [facility]Magn[facility] iezmj6972-43-47 12:04:10 Test Item Value Reference Range Interpretation Comments Magnesium (test code = 87461-6) 2.1 mg/dL 1.6-2.4 [facility] BradleyistProthrombin time with VIO7676-60-21 11:38:39 Test Item Value Reference Range Interpretation Comments Prothrombin time (test 15.4 11.5- 14.5 sec H code = 5902-2) INR (test code = 1.2 The Interna tional 94064-9) Normalized Rati o (INR) is a therapeuti c monitoring tool for patients who ar e stable on oral anticoagulant t herapy. An INR of 2.0-3 .0 is suggested for d eep vein thrombosis/pulm onary embolism. Lab Interpretation Abnormal (test code = 36060-5) [facility] MethodistCBC with platelet and ddgnwyuuaplc9633-25-06 11:27:00 Test Item Value Reference Range Interpretation Comments WBC (test code = 25667-8) 7.81 4.50- 11.00 k/uL RBC (test code = 07726-0) 4.76 m/uL 4.4-6 HGB (test code = 718-7) 14.0 g/dL 14-18 HCT (test code = 4544-3) 44.2 % 41-51 MCV (test code = 787-2) 92.9 fL 82-100 MCH (test code = 785-6) 29.4 pg 27-34 MCHC (test code = 786-4) 31.7 g/dL 31-37 RDW - SD (test code = 49.1 fL 37-55 18524-9) MPV (test code = 79751-2) 9.2 fL 8.8-13.2 Platelet count (test code 305 150- 400 k/uL = 50219-0) Nucleated RBC (test code 0.00 /100 WBC = 41688-4) Neutrophils (test code = 75.8 % 39-69 H 10476-4) Lymphocytes (test code = 11.1 % 25-45 L 31096-5) Monocytes (test code = 9.6 % 0-10 38672-9) Eosinophils (test code = 2.3 % 0-5 96458-7) Basophils (test code = 0.8 % 0-1 81003-3) Immature granulocytes 0.4 % 0-1 "Immat ure (test code = 13514-7) granul ocytes" (promyelocytes, myelocytes, metamyelocytes) Lab Interpretation (test Abnormal code = 24659-9) [facility]CHEM KIHJA2458-49-22 10:59:002.4[facility]annELECTROLYTES 2015-10-20 10:59:0010.4[facility] LgisehsZTHHXVZULUXF2394-09-08 10:59:0057[facility] YnvbxaiICZBHYATQTZQ6830-33-38 10:59:0034[facility] JdxdmmnYWBWLXISKRKB8521-86-20 10:59:0098[facility] FimzeugRXZIVNKUEWMR7261-72-93 10:59:003.4[facility] LTKYDZLMEBBL4521-34-65 10:59:64093Ypxqcjsk XcfulgpQZZYNDMIJQOC5048-96-23 10:59:001.24[facility] PxlvkhpNDWQLOUWGEEO8444-78-99 10:59:0033[facility] AIFHIHMXBTME1842-56-20 10:59:59252Wfklnoue CpvzsrwNFSTXYCMBUUN4494-28-13 10:59:008.7[facility] JyovuorHODPLGOCLK0066-05-00 10:59:0014.3[facility] BDZXHLENVH9640-35-96 10:59:0073.3[facility] McoboupYKDJUAMTRR1741-76-04 10:59:00 1.8[facility] IatqjsyIMZCLJVUUJ1692-84-35 10:59:002.6[facility] HermannHEMATOLOGY 2015-10-20 10:59:008.9[facility] PbkrscrZUKQUVDHXB9961-03-09 10:59:009.2[facility] OiikwimNVXTQZQIZB1760-42-01 10:59:000.9[facility] GszmpdvJCEYJTAAPM8192-06-71 10:59:001.1[facility] IdpxyrvVPJYQUQBGT6593-68-19 10:59:000.1[facility] XASLCVULLY3418-42-36 10:59:000.3[facility] PtruzjyEISPSGQHMA8614-11-19 10:59:15381 [facility] MvgbruuKZIJYZZGHF7257-64-13 10:59:008.1[facility] HermannHEMATOLOGY 2015-10-20 10:59:0017.4[facility] NqbhgreTJNRADGWPW8649-07-86 10:59:003.15[facility] ItlqkxfNMMOMZOYYE6082-56-16 10:59:0012.5[facility] GhzbsqhMBRSAUNSQM9022-13-63 10:59:0093.0[facility] WkcejfzRDFGGAXHXD4200-97-44 10:59:00 Test Item Value Reference Range Interpretation Comments MCH (test code = MCH) 30.4 pg 27.0-31.0 [facility] RkuxgsiYNJAKIHPUD5482-83-75 10:59:009.6[facility] HermannHEMATOLOGY 2015-10-20 10:59:0029.3[facility] LjdweciXSUZPPPOAJ5433-77-62 10:59:0032.7[facility] HermannCHEM ZJOYT8170-39-44 20:42:004.0[facility]annCHEM INKYK4105-48-33 20:42:002.4[facility]annCHEM MWJEP0231-88-37 20:42:0042[facility] HermannCHEM OLRAU8594-34-75 20:42:0032[facility]annCHEM HTCJR2220-76-26 20:42:0012.6 [facility] HermannCHEM ZUXKJ8449-76-46 20:42:008.3[facility] HermannCHEM PANEL 2015-10-19 20:42:0096[facility] HermannCHEM JSQPV5573-34-08 20:42:0028[facility] HermannCHEM DPAND2024-48-55 20:42:33170Wfjqhadl HermannCHEM GMPSX3947-63-11 20:42:003.6[facility]annCHEM IYFZL2825-42-36 20:42:98344Ynbbjksw HermannCHEM OMXWQ4403-22-15 20:42:001.58[facility] HermannCHEM SMIHM8051-73-09 11:00:002.5 [facility] BsrxxejHOYXOVXVKICR9242-49-07 11:00:0012.5[facility] HermannELECTROLYTES 2015-10-19 11:00:0059[facility] EtvmaopOXRMMYEIIMNY1708-53-31 11:00:0023[facility] HmlperoZFCKUEASXJOX1511-00-97 11:00:11430Mysrkzup PdiglgjBVTFECVZRIJQ2243-34-61 11:00:90470Ksdkrgvh WxxqjhvERFRLDJLEVPD5974-18-53 11:00:0099[facility] WSCRLEHYTVPZ8081-35-67 11:00:003.5[facility] ComyrrxJFYCCRCFTFSH2263-57-97 11:00:001.20[facility] GvuecjzPJYDNBRKBDNL0473-53-27 11:00:008.6[facility] XHOIUDPUIWJJ6231-03-41 11:00:0032[facility] SskrcmbUPIXXYHKXE6564-31-81 11:00:00 16.7[facility] VdcybgpRRAJXTWVFS2807-37-85 11:00:0032.7[facility] HermannHEMATOLOGY 2015-10-19 11:00:00 Test Item Value Reference Range Interpretation Comments MCH (test code = MCH) 30.4 pg 27.0-31.0 [facility] EalkgdsADBSHHBPMI2260-49-05 11:00:0092.8[facility] HermannHEMATOLOGY 2015-10-19 11:00:0031.3[facility] RuzfmzrTWFLVMBFJR3740-35-86 11:00:0012.7[facility] FuonujcKKIGACMFSI0973-42-75 11:00:003.38[facility] VmhcxduSAPOSXVHLR6994-78-65 11:00:007.4[facility] KtzyjdzYZFOEPDVQR6259-68-71 11:00:46822Efehsedu [facility] TBLZTPQAKB1087-69-75 11:00:0010.3[facility] TjsznfbMPERKNRORO1696-23-62 11:00:00 0.1[facility] NlelatnGPIMCDEVGU2926-50-48 11:00:000.4[facility] HermannHEMATOLOGY 2015-10-19 11:00:001.2[facility] FfmaesvKJQRJVQPDX4689-13-88 11:00:001.8[facility] MmvpowuCUUOGZSHMK2001-42-68 11:00:009.2[facility] AwwprtuKMBWYHRJQS2656-89-40 11:00:009.4[facility] RqbkmvxDFOYYOHPHP9529-95-27 11:00:0013.9[facility] LLKNKNKAEO3856-73-01 11:00:0072.8[facility] MuzvvrtWRMIMYKHEF4759-41-60 11:00:00 3.0[facility] AulqdefNKTQPRMHFE1101-32-55 11:00:000.9[facility] HermannCHEM PANEL 2015-10-18 18:18:002.8[facility] UrznvohKAWNUIAVQB9627-44-19 09:00:000.2[facility] FuxczgcAMSPCOFCVY0706-79-85 09:00:0072.0[facility] JabeafkYQFLAVUUMV9621-69-23 09:00:009.1[facility] WlimbonGPRXJSLLPK2716-60-66 09:00:003.0[facility] DXRFVLPVKU1644-09-30 09:00:0014.5[facility] PyntvnsUNVEXHMKWM4791-44-89 09:00:00 1.6[facility] MmqcdtiHBOMGRHHXC4597-22-84 09:00:000.3[facility] HermannHEMATOLOGY 2015-10-18 09:00:008.0[facility] JnxgyrrJCZSMKDYFL1398-67-38 09:00:001.0[facility] JqkkcweXEOGLSYHUA5624-86-47 09:00:001.4[facility] CvsptrvENIBTUUBSH2066-71-06 09:00:007.8[facility] BwoumpjQXBFLKGDVL8853-78-30 09:00:0016.1[facility] GPTXCNCBHP2888-25-30 09:00:79857Ktlspgku FjuxvqnNUJIDOXFZX4867-53-74 09:00:00 3.09[facility] ShhwayiVLPWYSQTXJ3537-25-09 09:00:0011.1[facility]annHEMATOLOGY 2015-10-18 09:00:0032.6[facility] YgvogddXXPDPVBKGS7697-12-07 09:00:0092.1[facility] VhjkdddDCAHWPDMVL6510-32-22 09:00:00 Test Item Value Reference Range Interpretation Comments MCH (test code = MCH) 30.0 pg 27.0-31.0 [facility] BaxoeicTFJVCQKEKY0320-08-03 09:00:009.3[facility] HermannHEMATOLOGY 2015-10-18 09:00:0028.5[facility] HermannCHEM TPHIO4687-52-29 15:30:002.2[facility]annCHEM KXFJP7549-86-78 11:38:001.5[facility]annCHEM XPHVZ2790-23-44 11:38:0029[facility]annCHEM GSPKP3146-36-56 11:38:002.2[facility]annCHEM DBMAF6274-54-79 11:38:005.6[facility]annCHEM TQANO6885-83-68 11:38:0056 [facility]annCHEM CKWJC0521-95-44 11:38:001.1[facility] HermannCHEM PANEL 2015-10-14 11:38:83231Ntfzllvm HermannCHEM HWIFE3269-45-33 11:38:000.3[facility] HermannCHEM NCJGB2461-03-63 11:38:000.8[facility] HermannCHEM VLMIH6558-20-12 11:38:000.6[facility]annCHEM PXSWJ8717-99-52 11:38:003.4[facility]annUR[facility] AND XCPCK4778-50-73 06:34:002[facility] RFSAM5544-47-25 06:34:00 1[facility] TPCZM5466-74-20 06:34:00Negative (10/14/15 12:34 AM) [facility] UPMJQ3437-94-85 06:34:00Negative (10/14/15 12:34 AM) [facility] KLEMX2998-67-81 06:34:00Trace *ABN*(10/14/15 12:34 AM) [facility] VQNAV3399-82-16 06:34:007[facility] FAOKH5514-38-62 06:34:001.007[facility] MZGYI5701-00-97 06:34:00 Clear (10/14/15 12:34 AM)[facility] INXLB7460-89-54 06:34:00Yellow *NA*(10/14/15 12:34 AM)[facility] EMKSZ4705-37-38 06:34:005.5 [facility] WBFSV3566-35-74 06:34:00Negative *NA*(10/14/15 12:34 AM)[facility] HermannANEMIA ZPVXD8747-02-35 19:02:16747Oggfwpni HermannANEMIA QWROV8864-30-65 19:02:0011[facility] HermannANEMIA MFIQJ5143-02-78 19:02:74022 [facility]annANEMIA XJFMY4910-51-33 19:02:0024[facility] HermannANEMIA STUDY 2015-10-13 19:02:37887Xldknkui HermannCHEM KKCTG1164-53-92 19:02:002.9[facility] XaysxuoQRRIPNVCWF9343-80-75 19:02:0018[facility] LsushqiRHBLMIXSXY8265-32-99 19:02:0013.3[facility] HermannCHEM NZRWT6590-03-01 10:12:0089[facility]annCHEM JYWAY7888-72-17 10:12:002.3[facility] HermannCHEM VDWRQ8308-25-10 10:12:005.7 [facility]annCHEM HPFFX5573-71-72 10:12:24546Uahskeez HermannCHEM PANEL 2015-10-11 10:12:0035[facility] HermannCHEM LDQQT0706-60-59 10:12:000.3[facility] HermannCHEM MNSJB4640-40-23 10:12:001.0[facility]annCHEM OQJMU2666-37-63 10:12:000.7[facility] HermannCHEM RQTHB6255-76-81 10:12:003.4[facility] HermannCHEM CGXIK1599-19-30 10:12:000.7[facility] HermannCHEM KWDAC3389-46-07 07:18:000.7 [facility]annCHEM QTEYG2307-30-28 07:18:003.4[facility] HermannCHEM PANEL 2015-10-10 07:18:000.5[facility] HermannCHEM IUYHE3248-70-43 07:18:0035[facility] HermannCHEM KANIP1839-92-38 07:18:84521Lsyfmjbn HermannCHEM WIWUZ0699-19-55 07:18:001.0[facility] HermannCHEM GDIDD5548-78-78 07:18:002.5[facility]annCHEM WWCSO2746-40-80 07:18:005.9[facility]annCHEM JYSDP8715-66-88 07:18:25034 [facility]annCHEM VQAYM9717-52-49 07:18:000.5[facility]annHEMATOLOGY 2015-10-10 07:18:0012[facility]UR[facility] AND FVHXD0472-82-77 17:37:00Yellow *NA*(10/09/15 11:37 AM)[facility] ZGTOC2856-51-91 17:37:00Clear (10/09/15 11:37 AM)[facility] TAJGU2448-65-98 17:37:00Negative *NA*(10/09/15 11:37 AM)[facility] CPHUN9361-05-96 17:37:00Negative (10/09/15 11:37 AM)[facility] ZDTNF2537-31-47 17:37:001[facility] AND ZYFHF8432-64-62 17:37:00Negative (10/09/15 11:37 AM)[facility] QPRHG8398-80-93 17:37:00Negative (10/09/15 11:37 AM)[facility] IYHNJ8929-74-21 17:37:005.0[facility] AND STOOL 2015-10-09 17:37:001.010[facility]UR[facility] AND DVVSN9338-29-44 17:37:001 [facility] PJJNR3017-99-53 17:37:001[facility]annHEMATOLOGY 2015-10-09 10:52:00Normal (10/09/15 4:52 AM)[facility] BymrqclBTBFLKVWJW5792-77-63 10:52:00Normal (10/09/15 4:52 AM)[facility] HermannANEMIA EUUOT4304-86-34 22:52:00 189[facility] HermannANEMIA TBAUU6647-07-50 22:52:0012[facility]annANEMIA STUDY 2015-10-06 22:52:96548Ngjcsqte HermannANEMIA YTHDT4070-47-38 22:52:0024[facility] HermannANEMIA GQOJG5041-83-54 22:52:31108Jiengznb FrfewmfAJFWYLBPGS6198-17-91 22:52:004.3[facility]annBLOOD BANK YOAIZBA6303-71-83 10:35:00Negative (10/05/15 4:35 AM)[facility] LqnyoprUTILDAMJQZ4876-05-66 09:16:001.68[facility] PrjudwuRAYZXDGAYT4070-92-72 09:16:00 Test Item Value Reference Range Interpretation Comments PT (test code = PT) 20.1 s 12.0-14.7 [facility] RapxverDWGMRPVGWT9280-27-46 09:16:00 Test Item Value Reference Range Interpretation Comments PTT (test code = PTT) 36.2 s 22.9-35.8 [facility] HermannCARDIAC DCMDJXG3812-13-33 19:01:10271Cjyemkjk HermannBLOOD BANK QIXXATK6455-15-48 15:57:00Negative (10/02/15 9:57 AM)[facility] HermannCHEM PANEL 2015-10-02 08:56:0016[facility] KzkzrggEXBYMZXIIS9057-10-73 08:56:00 Test Item Value Reference Range Interpretation Comments PT (test code = PT) 20.9 s 12.0-14.7 [facility] HlzbyybJNBWTGIWLY0547-33-49 08:56:001.77[facility] HermannHEMATOLOGY 2015-10-02 08:56:00 Test Item Value Reference Range Interpretation Comments PTT (test code = PTT) 33.9 s 22.9-35.8 [facility]annCHEM QXDHH6210-59-52 00:37:006.8[facility]UR[facility] STOOL 2015-10-02 00:37:00Negative *NA*(10/01/15 6:37 PM)[facility] STOOL 2015-10-02 00:37:00Moderate *ABN*(10/01/15 6:37 PM)[facility] STOOL 2015-10-02 00:37:00Negative (10/01/15 6:37 PM)[facility] STOOL 2015-10-02 00:37:003[facility] AND ITBXE6866-92-31 00:37:00Yellow *NA*(10/01/15 6:37 PM)[facility] DGACS4848-92-68 00:37:0015[facility]annUR[facility] AND HVZOC8040-25-50 00:37:00Moderate *ABN*(10/01/15 6:37 PM)[facility] NPPRW2933-70-13 00:37:00Slight *ABN*(10/01/15 6:37 PM)[facility] EQAKX0492-79-19 00:37:001.016[facility] STOOL 2015-10-02 00:37:005.0[facility]UR[facility] OBMAV8955-52-61 00:37:009 [facility]UR[facility] FXYI1264-29-45 00:37:0052.6[facility]UR[facility] CHEM 2015-10-02 00:37:0016[facility]annURINE DIMB9725-76-71 00:37:63651.00[facility]annURINE VLZW0179-01-84 00:37:000.5[facility] HermannCHEM KEQEY3745-81-64 21:22:005.6[facility] KbexzidDKVNSZWXML9336-30-08 14:40:00 Test Item Value Reference Range Interpretation Comments PTT (test code = PTT) 35.1 s 22.9-35.8 [facility] EgvcvazSNZRJIAGYU0564-89-99 14:40:00 Test Item Value Reference Range Interpretation Comments PT (test code = PT) 21.2 s 12.0-14.7 [facility] FmjjfwsJOVUKFIPHB2642-27-49 14:40:001.80[facility]annBLOOD BANK MSYOZXV7571-80-76 09:00:00Product available (10/01/15 3:00 AM)[facility] PARATHYROID FEUCLNV6463-92-66 07:16:001.08[facility] HermannPARATHYROID PROFILE 2015-10-01 07:16:001.09[facility]annCHEM CIRHP0175-62-60 01:18:009[facility] HermannBACTERIAL - UGCYGAWX7696-09-14 23:53:00Negative (09/30/15 5:53 PM)[facility] CpatplvKKDDQAWKLM0155-51-34 23:53:00Normal (09/30/15 5:53 PM)[facility] ZLRKOQENNF3072-60-72 23:53:00Normal (09/30/15 5:53 PM)[facility] HermannPARATHYROID ZQHPHSM9246-22-33 23:53:000.95[facility] HermannPARATHYROID OGJGNTY2307-43-44 23:53:000.99[facility] HermannCARDIAC NGWUOLQ8101-68-27 09:30:26837Zfjrciiu HermannCHEM TFXDG3411-79-15 09:30:60630Zedacrtg HermannCHEM WSIBZ8732-17-30 09:30:0014[facility] HermannCHEM IESVA4289-59-20 09:30:0052[facility]annBLOOD BANK BDXGIZO8606-35-14 23:51:00Negative (09/29/15 5:51 PM)[facility]annCHEM AQAYU9156-00-35 08:55:003.1[facility] HermannCHEM OSCJN7155-96-72 08:55:002.0 [facility] TqgpaqtZMHZEFTUERCC4716-23-67 08:55:0025[facility] HermannELECTROLYTES 2015-09-22 08:55:008.4[facility] LpheockKKFCVPUXPJSP2600-99-40 08:55:0012.2 [facility] GiyhkkwBYERWMVVJGXT0821-21-01 08:55:0085[facility] HermannELECTROLYTES 2015-09-22 08:55:08921Cushdddf FzibvtgFKXOBGEOFRNO0789-82-20 08:55:0013[facility] RabgdifQTZWACCQYCSB1685-03-41 08:55:000.88[facility] DdjpzexTNKDDIRYVJJS5478-65-59 08:55:55424Ycfqpmro SgcxhwgQFTKMRCNWYUS1576-27-58 08:55:003.2[facility] DWPFEVHCTWAD3529-94-77 08:55:50590Zmcbhpot IhmjcxpJRRHZHFYUV8263-17-31 08:55:00 6.9[facility] BpahmgoUXIIKKVAOI7947-99-87 08:55:0057.6[facility]annHEMATOLOGY 2015-09-22 08:55:0011.0[facility] PhawzulZRQMMUPFBT4436-92-02 08:55:001.0[facility] MsjanmdLDAPJDMUAQ6806-43-76 08:55:0023.5[facility] HcdobfsRBTLHEHHVE0960-33-65 08:55:000.5[facility] RcpbowuZIHJQXQCBR5845-91-57 08:55:004.5[facility] NGUTOUISBH6695-47-90 08:55:000.9[facility] GxggfvkKMVHEHAOKM7589-64-10 08:55:000.1 [facility] ZqtfydaBFVPWMXREO9229-80-00 08:55:001.8[facility]annHEMATOLOGY 2015-09-22 08:55:008.4[facility] RaloayqQIOSLFGDQB2667-37-49 08:55:41274Uvxecgnt MhpcvulJIFPSHWBAV0189-05-02 08:55:007.8[facility] CfivibeQUGNLFQOQB7477-81-92 08:55:0013.6[facility] ZawtbmgRMMKJBVOPF6652-08-67 08:55:0032.5[facility] VBDKDZMIVU2904-62-01 08:55:00 Test Item Value Reference Range Interpretation Comments MCH (test code = MCH) 29.7 pg 27.0-31.0 [facility] MflwlzbBTXITCFMTS2709-99-49 08:55:004.58[facility]annHEMATOLOGY 2015-09-22 08:55:0091.4[facility] AyvkfveQLINBGQGBM1394-32-25 08:55:0041.8[facility] TanssrjPCXQBUGJBJ8910-18-56 08:55:0014.8[facility] HermannCHEM ZMOHE9648-99-05 08:28:002.5[facility] HermannCHEM XPYDJ6304-31-09 08:28:002.1[facility] HermannCHEM EUZVU2161-46-79 08:28:0094[facility] HermannCHEM XTTDM1804-03-50 08:28:0010 [facility]annCHEM HCNYH9164-14-26 08:28:31684Andrptko HermannCHEM PANEL 2015-09-21 08:28:0023[facility] HermannCHEM ZWTTD4440-41-75 08:28:008.5[facility] HermannCHEM AWNLT9572-43-24 08:28:000.69[facility] HermannCHEM CNGYY6030-12-77 08:28:17004Fgjwmhsy HermannCHEM GQUAS1215-31-59 08:28:003.3[facility] HermannCHEM PGFSI2562-21-04 08:28:81358Yixumxge HermannCHEM TPRGS8923-21-50 08:28:0014.3 [facility] OjjibwhOMOKUUWMHM4133-87-98 08:28:000.1[facility] HermannHEMATOLOGY 2015-09-21 08:28:001.6[facility] TszirrfJYHVAJPIJB2183-12-93 08:28:005.4[facility] ZkmsxzhGYSFJIUPSS3691-51-20 08:28:000.2[facility] CadkuesNIWCVXWPPH7998-64-88 08:28:000.8[facility] KrwftduGPQSQTLHAG5177-57-81 08:28:000.8[facility] DMMGLTALIX0974-17-24 08:28:009.6[facility] MsnpwbiSMQJUICBPX0168-44-50 08:28:002.1 [facility] LwpezboMQNITCSYTT7444-86-56 08:28:0067.7[facility]annHEMATOLOGY 2015-09-21 08:28:0019.8[facility] LmiuaskCLLTMYGSQF7696-62-03 08:28:0015.0[facility] IoqspmcEAOETOQNKI9816-94-13 08:28:67441Ggvndtml GdlofmpPWOSFOCYJR1496-16-25 08:28:008.2[facility] VdgytwzXHWQFOBLNK7978-33-30 08:28:0013.6[facility] BGYBTPJJHQ7351-43-27 08:28:00 Test Item Value Reference Range Interpretation Comments MCH (test code = MCH) 29.2 pg 27.0-31.0 [facility] HghwojjERGNOACLEZ3511-79-92 08:28:0043.0[facility] HermannHEMATOLOGY 2015-09-21 08:28:0092.4[facility] AeuaxhbUXLTSRRUDG7898-85-04 08:28:008.0[facility] LqyplcyNFWCQNORCP4665-41-76 08:28:004.66[facility] QuzgjguWQIADAFBTP2722-51-34 08:28:0031.6[facility] HermannPARATHYROID QKIFKOE8244-89-08 08:28:001.05[facility]annPARATHYROID TQFEBAT2363-93-53 08:28:001.06[facility]annCARDIAC ENZYMES 2015-09-20 16:47:0045[facility]annCARDIAC NJSLPHJ6358-82-78 16:47:000.02 [facility]annCARD[facility]AC MTSSNWL7508-40-15 16:47:00<0.010[facility] BACTERIAL - JSNPVKXA0301-91-58 08:08:00Negative (09/20/15 2:08 AM)[facility]annCARDIAC MYQHCNV1031-96-45 08:00:0045[facility]annCARDIAC ENZYMES 2015-09-20 08:00:00<0.010[facility]annCARDIAC RNTXPSO5522-14-69 08:00:00 0.02[facility] HermannCHEM HCFGG7133-61-62 08:00:0072[facility]annCHEM PANEL 2015-09-20 08:00:008.3[facility]annCHEM KFSKF3436-96-16 08:00:001.02[facility]annCHEM HHZIA1571-60-11 08:00:18973Vfvoyyur HermannCHEM GFGDK3331-78-93 08:00:0018[facility]annCHEM LVBBY2817-30-24 08:00:0024[facility]annCHEM RQJBH3659-59-14 08:00:0012.1[facility]annCHEM MYUEM5168-87-13 08:00:003.1 [facility]annCHEM LTGMA2155-18-48 08:00:01995Qazizdce HermannCHEM PANEL 2015-09-20 08:00:55317Khlhzenh HermannCHEM SLJFQ6499-95-37 08:00:000.5[facility]annCHEM WLDWR4301-98-53 08:00:000.3[facility]annCHEM AOFSL1755-09-32 08:00:000.8[facility]annCHEM HHUIP9598-16-74 08:00:0018[facility]annCHEM RYZPI5247-45-80 08:00:03584Jzezacxv HermannCHEM UUCVQ3144-33-21 08:00:000.8 [facility]annCHEM QNLOM4446-37-01 08:00:0029[facility]annCHEM PANEL 2015-09-20 08:00:007.1[facility]annCHEM UPUTI2411-04-62 08:00:004.0[facility]annCHEM IBKXS7445-83-00 08:00:003.1[facility]annCHEM WGIKC7065-17-76 08:00:003.8[facility]annCHEM WGPRE1929-52-73 08:00:001.8[facility] FAAEZPDLPQ6554-52-11 08:00:0032.4[facility] UimotieWMSYVYGWBD3407-57-82 08:00:00 14.2[facility] KkjdrfuEAIJZAABHM4067-73-61 08:00:38495[place] HermannHEMATOLOGY 2015-09-20 08:00:008.1[facility] LsxdrheTSMAXXKWVK4111-63-13 08:00:00 Test Item Value Reference Range Interpretation Comments MCH (test code = MCH) 29.6 pg 27.0-31.0 [facility] QlflkdnPAUGWPXELR2995-28-14 08:00:008.1[facility]annHEMATOLOGY 2015-09-20 08:00:004.62[facility] FwboppwITXBBUWLAQ9034-31-33 08:00:0013.6[facility] GtjmfykEBKJJJDUFI4269-61-54 08:00:0042.2[facility] ZxfpsseBDFDCWXALN5839-05-32 08:00:0091.3[facility] RzzfrvgFGZMATWPGI5859-31-28 08:00:0017[facility] ZTLIPMUFGP5195-32-22 08:00:000.7[facility] VxichjsOHLMIXNQKR8652-53-21 08:00:00 23.3[facility] UqwoxacTVEBLIYWIA5955-66-38 08:00:007.7[facility]annHEMATOLOGY 2015-09-20 08:00:0066.5[facility] PgmemviWDNFHISPYF8594-41-90 08:00:001.8[facility] BfsyfqxTVVJRKLQER3012-67-61 08:00:000.1[facility] TmxyhgsOSCSMZRUWY5177-05-86 08:00:000.1[facility] AitqwzkMJGDBDGTWD9260-15-31 08:00:001.9[facility] OYBQZGVCKG1288-86-05 08:00:000.6[facility] TtzzcxyFFCNBKSAVT3010-94-04 08:00:005.4 [facility]annPARATHYROID WPDRBOH3686-19-69 08:00:001.06[facility] PARATHYROID ZEQYBIX7837-87-04 08:00:001.06[facility] HermannDRUG LJROHA2684-53-50 04:09:00See Note *NA*(09/19/15 10:09 PM)[facility] HermannDRUG TCRPPJ6699-90-35 04:09:00Negative *NA*(09/19/15 10:09 PM)[facility] HermannDRUG UGZKEI3944-53-90 04:09:00Negative *NA*(09/19/15 10:09 PM)[facility]annDRUG YPORSS6777-25-88 04:09:00Negative *NA*(09/19/15 10:09 PM)[facility]annDRUG RGPABB6161-04-08 04:09:00Negative *NA*(09/19/15 10:09 PM)[facility]annDRUG VRYKQW3835-67-96 04:09:00Negative *NA*(09/19/15 10:09 PM)[facility] HermannDRUG ARFUWY7796-70-81 04:09:00Negative *NA*(09/19/15 10:09 PM)[facility] HermannDRUG TBGACT3325-71-78 04:09:00Negative *NA*(09/19/15 10:09 PM)[facility] LuctdyyLIWRTD6325-21-32 04:09:002.84[facility] XzexzajQCLMVR2966-91-75 04:09:0037[facility] HermannLIPIDS 2015-09-20 04:09:0037[facility] NyfczwiRWNJDV7145-23-74 04:09:0031[facility] FOBUMB4331-99-76 04:09:67470Ojskugjp KtzlojdFHYRHH0471-18-93 04:09:04287Pvfalbmg HermannSPECIAL JDWGZLWSB7331-35-00 04:09:006.0[facility]annURINE AND STOOL 2015-09-20 04:09:00Negative *NA*(09/19/15 10:09 PM)[facility]annUR[facility] AND UZMYM7097-73-95 04:09:00Negative (09/19/15 10:09 PM)[facility]UR[facility] AND WWYQY4297-93-73 04:09:000.2[facility]annUR[facility] AND CCUFK4895-30-71 04:09:00 Small *ABN*(09/19/15 10:09 PM)[facility]annUR[facility] AND VEZNS3170-49-41 04:09:00 Negative *NA*(09/19/15 10:09 PM)[facility]UR[facility] AND PYFTV6269-34-90 04:09:00 Test Item Value Reference Range Interpretation Comments UA Spec Grav (test code = UA Spec 1.015 1 Grav) [facility]UR[facility] AND ZWLHM0309-69-16 04:09:00Clear (09/19/15 10:09 PM) [facility] KHDAL5389-31-30 04:09:00 Test Item Value Reference Range Interpretation Comments UA pH (test code = UA pH) 5.5 1 5.0-8.0 [facility] AND IUBKA4663-08-22 04:09:00Negative (09/19/15 10:09 PM) [facility] RMFAS0427-79-39 04:09:00Negative (09/19/15 10:09 PM) [facility] ZAUDK9619-00-76 04:09:00Yellow *NA*(09/19/15 10:09 PM) [facility] AND EASTE3325-42-58 04:09:00None Seen (09/19/15 10:09 PM) [facility] FDQBU1927-93-47 04:09:000-2 (09/19/15 10:09 PM) [facility]annCHEM HJODI5824-23-28 03:12:001.4[facility] HermannHEMATOLOGY 2015-09-20 03:00:00Citrated Whole Blood (09/19/15 9:00 PM)[facility] IKOWYSULYB1469-58-54 03:00:00 Test Item Value Reference Range Interpretation Comments ACT (TEG) (test code = ACT (TEG)) 113 s 86-118 [facility] XnnepmpHNRJVXUYEF9851-05-54 03:00:00 Test Item Value Reference Range Interpretation Comments Split Point (test code = Split Point) 0.5 min [facility] IyyhlouGEGPQISEBF6563-64-36 03:00:00 Test Item Value Reference Range Interpretation Comments R-time (test code = R-time) 0.7 min 0.4-0.7 [facility] IyeoozqIZJRTBVLVP8806-18-72 03:00:00 Test Item Value Reference Range Interpretation Comments K-time (test code = K-time) 1.2 min 0.6-2.3 [facility] NumhdyxAHHYAFKXMM7638-22-13 03:00:00 Test Item Value Reference Range Interpretation Comments Angle (test code = Angle) 75 degrees 64-80 [facility] IbknpqaZARKVGBPOW8962-23-91 03:00:009.4[facility] HermannHEMATOLOGY 2015-09-20 03:00:00 Test Item Value Reference Range Interpretation Comments Max Amp (test code = Max Amp) 65 mm 52-71 [facility] [id number] 03:00:004.1[facility] 2015-09-20 02:50:003.8[facility] [id number] 02:50:0053 [facility] [id number] 02:50:00<0.02[facility] CARDIAC [id number] 02:50:002.0[id number] 02:50:00 Test Item Value Reference Range Interpretation Comments PTT (test code = PTT) 33.4 s 22.9-35.8 [facility] [id number] 02:50:001.17[facility] 2015-09-20 02:50:00 Test Item Value Reference Range Interpretation Comments PT (test code = PT) 15.2 s 12.0-14.7 [facility]
[2020-07-27 10:06] LABS: Absolute Lymphocytes (CBC) 0.7 K/uL (0.7-4.9); Basophils % 0.6 % (0-1.3); Lymphocytes % 6.5 % (15.3-44.8); MPV 7.7 fL (7.6-11.3); RBC Red Blood Cell Count 4.14 M/uL (4.33-5.43)
[2020-07-27 10:13] LABS: Protime INR 1.26
[2020-07-27] MEDS ORDERED: LEVALBUTEROL 1.25 MG/3 ML NEB ONE (10:15)
[2020-07-27 10:41] LABS: ALT/SGPT 29 U/L (12-78); AST/SGOT 17 U/L (15-37); Albumin 3.4 g/dL (3.4-5.0); Alkaline Phosphatase 150 U/L (45-117); Amylase 64 U/L (25-115); BUN Blood Urea Nitrogen 43 mg/dL (7-18); Bicarbonate 23 mmol/L (21-32); Bilirubin Direct 0.5 mg/dL (0-0.2); Bilirubin Total 1.3 mg/dL (0.2-1.0); CKMB Creatine Kinase MB 2.5 ng/mL (0.3-3.6); Creatine Phosphokinase 50 U/L (39-308); Glucose Level 124 mg/dL (74-106); Lipase 215 U/L (73-393); Protein, Total 8.3 g/dL (6.4-8.2); Sodium Level 136 mmol/L (136-145); Troponin (Emerg Dept Use Only) < 0.02 ng/mL (0.0-0.045)
[2020-07-27 11:00] LABS: Urine Blood 3+ (NEG); Urine Glucose NEGATIVE (NEG); Urine Protein 1+ (NEG); Urine Specific Gravity 1.015 (1.005-1.030)
[2020-07-27 11:09] LABS: Urine Bacteria <20 /HPF (NONE SEEN); Urine Culture Reflex Order NOT NEEDED
[2020-07-27] MEDS ORDERED: CEFTRIAXONE/SWI 1gm 1 GM/10 ML SYR ONE (11:12)
[2020-07-27] MEDS ORDERED: NA CHLORIDE 0.9% 100 ML IV ONE (11:12)
--- NOTE | 2020-07-27 12:05 | RAD REPORT ---
EXAM DESCRIPTION: CT - Thorax W/ Con - 07/27/2020 11:50 am CLINICAL HISTORY: SOB COMPARISON: Portable chest July 27 TECHNIQUE: Dynamically enhanced 5 mm thick images of the chest were obtained during administration o f 100 mL non-ionic IV contrast. All CT scans are performed using dose optimization technique as appropriate and may include automated exposure control or mA/KV adjustment according to patient size. FINDINGS: Ground-glass opacities are present in the lateral posterior aspect of the right upper lobe . Trace amounts of ground-glass opacification present in the lingula and right middle lobe. Atelectas is is present posterior left base abutting slightly elevated diaphragm or eventration posterior left lower lobe atelectasis changes are present with there is potential for infiltrate as well. Fibrotic s carring changes are present at the lateral lingula. Patient has a small to moderate size left pleural effusion that is at least partially loculated at the base. Minimal right-sided pleural effusion. No pneumothorax. No chest wall mass or abnormal axillary lymphadenopathy. Cardiomegaly is present particularly right atrium and left atrium. No pericardial effusion. Dense cor onary artery calcifications are present. Nonspecific mediastinal lymph nodes are present. Limited upper abdomen imaging shows nodular contour to the liver and a prominent left lobe. IMPRESSION: Scattered ground-glass opacification of the right upper lobe and minimally in the lingul a and the right middle lobe. These findings are suspicious for infiltrate. These are peripherally di stributed. COVID-19 pneumonia is possible O would need correlation with clinical presentation and starr ting. Patient has atelectasis at both lung bases that is probably chronic. There is a minimal right pleural effusion and a small to moderate partially loculated left pleural effusion. Biatrial enlargement with overall cardiomegaly. No pericardial effusion. Limited upper abdomen imaging shows a liver with findings suggesting cirrhosis or hepatic parenchymal disease. This is incompletely evaluated.
--- NOTE | 2020-07-27 12:09 | RAD REPORT ---
EXAM DESCRIPTION: RAD - Chest Single View - 07/27/2020 11:02 am CLINICAL HISTORY: SOB COMPARISON: April 29 TECHNIQUE: AP portable chest image was obtained 07/27/2020 11:02 am . FINDINGS: Lung volumes are low accentuating lung pattern. Chronic left base pleural and parenchymal opacification again noted. Right costophrenic angle blunting is present probably from low lung volume atelectasis. Patchy airspace opacification in the right upper lobe and left base could be early infi ltrate. Stable cardiomegaly is noted. Trachea is midline. No pneumothorax. No acute bony abnormality seen. No acute aortic findings suspected. IMPRESSION: Patchy alveolar edema or infiltrate in the right upper lobe and lower left lung field. All chest findings accentuated by shallow inspiration. Chronic pleural effusion and parenchymal opacification left base.
--- NOTE | 2020-07-27 14:59 | ER ---
Nurse's Notes [facility] Name: Donell Valle Jr Age: 80 yrs Sex: Male : 1940 Arrival Date: 07/27/2020 Time: 08:52 Bed 7 Private MD: Diagnosis: Pneumonia, unspecified organism;Pleural effusion in conditions classified elsewhere;Shortness of breath Presentation: 07/27 09:02 Chief complaint: Patient states: having diff breathing X 3days, home SpO2 dropped over iw last couple days, had to use his rescue inhaler, mild cough, +low grade fever. Coronavirus screen: cough unrelated to allergies, shortness of breath, Client presents with at least one sign or symptom that may indicate coronavirus-19. Standard/surgical mask placed on the client. Provider contacted for isolation considerations. Ebola Screen: Patient negative for fever greater than or equal to 101.5 degrees Fahrenheit, and additional compatible Ebola Virus Disease symptoms Patient denies exposure to infectious person. Patient denies travel to an Ebola-affected area in the 21 days before illness onset. No symptoms or risks identified at this time. Initial Sepsis Screen: Does the patient meet any 2 criteria? No. Patient's initial sepsis screen is negative. Does the patient have a suspected source of infection? No. Patient's initial sepsis screen is negative. Risk Assessment: Do you want to hurt yourself or someone else? Patient reports no desire to harm self or others. Onset of symptoms was July 23, 2020. 09:02 Method Of Arrival: Ambulatory iw 09:02 Acuity: ALTAF 3 iw Triage Assessment: 09:10 General: Appears distressed, uncomfortable, Behavior is cooperative, appropriate for bp age, anxious. Pain: Denies pain. EENT: No deficits noted. Neuro: No deficits noted. Cardiovascular: No deficits noted. Respiratory: Reports shortness of breath cough that is Onset: The symptoms/episode began/occurred at an unknown time. the patient has moderate shortness of breath. GI: No signs and/or symptoms were reported involving the gastrointestinal system. : No signs and/or symptoms were reported regarding the genitourinary system. Derm: No deficits noted. Historical: - Allergies: 09:08 NKDA; iw - Home Meds: 09:08 nifedipine 60 mg Oral tr24 1 tab once daily [Active]; amiodarone 200 mg Oral tab 1 tab iw once daily [Active]; amlodipine 10 mg tab 1 tab once daily [Active]; atorvastatin 40 mg Oral tab 1 tab once daily [Active]; spironolactone 25 mg Oral tab 1 tab once daily [Active]; aspirin 81 mg oral TbEC once daily [Active]; Breo Ellipta 100-25 mcg/dose inhalation dsdv 1 puff once daily [Active]; Albuterol Inhl as needed [Active]; - PMHx: 09:08 CVA; Hypertension; Atrial Fib; iw - PSHx: 09:08 Cholecystectomy; TURP; cardiac ablation; CABG; iw - Immunization history:: Adult Immunizations Adult Immunizations up to date. - Social history:: Smoking status: Patient denies any tobacco usage or history of. Smoking status: Patient/guardian denies using tobacco, but has a distant history of tobacco abuse. Screenin:20 Abuse screen: Denies threats or abuse. Abuse screen: Denies injuries from another. bp Nutritional screening: On. Nutritional screening: No deficits noted. Tuberculosis screening: No symptoms or risk factors identified. Fall Risk Assessment: 09:10 General: SEE TRIAGE NOTE. Cardiovascular: Rhythm is sinus rhythm. Cardiovascular: Heart bp tones. 10:30 Reassessment: Patient appears in no apparent distress at this time. Patient and/or bp family updated on plan of care and expected duration. Pain level reassessed. NEB IN PROCESS. 11:28 Reassessment: Patient appears in no apparent distress at this time. ALL CURRENT ORDERS bp COMPLETED. Respiratory: Airway is patent Respiratory effort is even, labored, Breath sounds are coarse bilaterally. 12:30 Reassessment: Patient appears in no apparent distress at this time. Patient and/or bp family updated on plan of care and expected duration. Pain level reassessed. Patient is alert, oriented x 3, equal unlabored respirations, skin warm/dry/pink. 13:14 Reassessment: Patient appears in no apparent distress at this time. Patient and/or bp family updated on plan of care and expected duration. Pain level reassessed. HOSPITALIST AT B/S. 14:53 Reassessment: No changes from previously documented assessment. Patient and/or family bp updated on plan of care and expected duration. Pain level reassessed. Patient is alert, oriented x 3, equal unlabored respirations, skin warm/dry/pink. ADMIT IN PROCESS. 15:39 Reassessment: ADMIT COMPLETE. REPORT TO CAMILO FERNANDEZ FOR RM 230. bp Vital Signs: 09:02 BP 127 / 72; Pulse 81; Resp 18; Temp 98.8; Pulse Ox 96% on R/A; Weight 88.45 kg; Height iw 6 ft. 1 in. (185.42 cm); Pain 0/10; 10:04 BP 125 / 76; Pulse 73; Resp 23; Temp 98.5(O); Pulse Ox 93% on R/A; mh5 11:28 BP 126 / 72; Pulse 76; Resp 15; Pulse Ox 93% on R/A; bp 12:26 BP 129 / 78; Pulse 77; Resp 16; Pulse Ox 93% on R/A; ss 13:15 BP 132 / 65; Pulse 81; Resp 21; Pulse Ox 96% ; bp 14:00 BP 140 / 70; Pulse 75; Resp 24; Pulse Ox 93% ; bp 15:00 BP 129 / 75; Pulse 73; Resp 19; Pulse Ox 97% ; bp 09:02 Body Mass Index 25.73 (88.45 kg, 185.42 cm) iw ED Course: 08:52 Patient arrived in ED. as 09:05 Mandeep Vanegas MD is Attending Physician. kdr 09:05 Triage completed. iw 09:05 Arm band placed on. iw 09:09 Keith White, JIM is Primary Nurse. bp 09:52 Initial lab(s) drawn, by me, sent to lab. First set of blood cultures drawn by me, EKG 5 done, by ED staff, reviewed by Mandeep Vanegas MD. 10:01 Creatine Phosphokinase Sent. mh5 10:01 CKMB Creatine Kinase MB Sent. mh5 10:01 CBC with Automated Diff Sent. mh5 10:01 Basic Metabolic Panel Sent. mh5 10:01 Blood Culture Sent. mh5 10:01 Amylase Sent. mh5 10:01 Amylase, Serum Sent. mh5 10:01 Basic Metabolic Panel Sent. mh5 10:01 Blood Culture Adult (2) Sent. mh5 10:01 CBC with Diff Sent. mh5 10:01 Ckmb Sent. mh5 10:01 CPK Sent. mh5 10:01 Lactate Sent. mh5 10:02 LFT's Sent. mh5 10:02 Lipase Sent. mh5 10:02 Procalcitonin Sent. mh5 10:02 Protime (+inr) Sent. 5 10:02 Ptt, Activated Sent. 5 10:02 Troponin (emerg Dept Use Only) Sent. 5 10:02 Inserted saline lock: 20 gauge in right forearm, using aseptic technique. Blood 5 collected. 10:03 Patient has correct armband on for positive identification. Placed in gown. Bed in low mh5 position. Call light in reach. Side rails up X 1. Adult w/ patient. secured entrance monitor on. Pulse ox on. NIBP on. 11:04 Chest Single View XRAY In Process Unspecified. EDMS 11:51 CT Chest W/ Con In Process Unspecified. EDMS 14:58 Charles Berumen DO is Hospitalizing Provider. kdr 15:41 No provider procedures requiring assistance completed. Patient admitted, IV remains in bp place. Administered Medications: 09:36 CANCELLED (Physician Discretion): NS 0.9% (30 ml/kg) 30 ml/kg IV at bolus once; Sepsis iw Protocol 10:00 Drug: Xopenex (3) 1.25 mg Route: Inhalation; bp 10:45 Drug: Rocephin - (cefTRIAXone) 1 grams Route: IVPB; Infused Over: 30 mins; Site: right bp forearm; 15:41 Follow up: IV Status: Completed infusion; IV Intake: 100ml bp Intake: 15:41 IV: 100ml; Total: 100ml. bp Outcome: 14:59 Decision to Hospitalize by Provider. kdr 15:40 Admitted to Med/surg accompanied by tech, family with patient, via wheelchair, room bp 230, with chart, Report called to CAMILO FERNANDEZ 15:40 Condition: stable 15:40 Instructed on the need for admit. 15:57 Patient left the ED. bp Signatures: Dispatcher [employer] EDOR Mandeep aVnegas MD MD kdr Martinez, Amelia as Williams, Irene, JIM FERNANDEZ uRth Bryan RN RN Robyn Marinelli [facility] Keith White RN RN bp
--- NOTE | 2020-07-27 14:59 | EDPHYS ---
Physician Documentation [facility] Name: Donell Valle Jr Age: 80 yrs Sex: Male : 1940 Arrival Date: 07/27/2020 Time: 08:52 Bed 7 Private MD: ED Physician Mandeep Vanegas HPI: 07/27 10:27 This 80 yrs old Male presents to ER via Ambulatory with complaints of kdr Shortness Of Breath. 10:27 The patient has shortness of breath at rest, with light activity. Onset: The kdr symptoms/episode began/occurred gradually, 3 day(s) ago. Duration: The symptoms are continuous, and are steadily getting worse. The patient's shortness of breath is aggravated by coughing, exertion, light activity, supine position, walking. Associated signs and symptoms: Pertinent positives: productive cough, fever, nausea, Pertinent negatives: visual changes, vomiting. Severity of symptoms: At their worst the symptoms were mild moderate just prior to arrival, in the emergency department the symptoms are unchanged. The patient has experienced similar episodes in the past, a few times. The patient has been recently seen by a physician: The patient was recently cardioverted and is now wearing a derrick boat runner. Historical: - Allergies: 09:08 NKDA; iw - Home Meds: 09:08 nifedipine 60 mg Oral tr24 1 tab once daily [Active]; amiodarone 200 mg Oral tab 1 tab iw once daily [Active]; amlodipine 10 mg tab 1 tab once daily [Active]; atorvastatin 40 mg Oral tab 1 tab once daily [Active]; spironolactone 25 mg Oral tab 1 tab once daily [Active]; aspirin 81 mg oral TbEC once daily [Active]; Breo Ellipta 100-25 mcg/dose inhalation dsdv 1 puff once daily [Active]; Albuterol Inhl as needed [Active]; - PMHx: 09:08 CVA; Hypertension; Atrial Fib; iw - PSHx: 09:08 Cholecystectomy; TURP; cardiac ablation; CABG; iw - Immunization history:: Adult Immunizations Adult Immunizations up to date. - Social history:: Smoking status: Patient denies any tobacco usage or history of. Smoking status: Patient/guardian denies using tobacco, but has a distant history of tobacco abuse. ROS: 10:27 Constitutional: Negative for weight loss - he hsa had fever to 101 yesterday Eyes: kdr Negative for injury, pain, redness, and discharge, ENT: Negative for injury, pain, and discharge, Neck: Negative for injury, pain, and swelling, Cardiovascular: Negative for chest pain, palpitations, and edema, Abdomen/GI: Negative for abdominal pain, nausea, vomiting, diarrhea, and constipation, Back: Negative for injury and pain, : Negative for injury, bleeding, discharge, and swelling, MS/Extremity: Negative for injury and deformity, Skin: Negative for injury, rash, and discoloration, Neuro: Negative for headache, weakness, numbness, tingling, and seizure activity. 10:27 Respiratory: Positive for cough, dyspnea on exertion, hemoptysis, orthopnea, shortness of breath, at rest. Sats in the 70's/80's at home at rest, Negative for pleurisy. Exam: 10:17 ECG was reviewed by the Attending Physician. kdr 10:27 Constitutional: This is a well developed, well nourished patient who is awake, alert, kdr and in no acute distress. Head/Face: Normocephalic, atraumatic. Eyes: Pupils equal round and reactive to light, extra-ocular motions intact. Lids and lashes normal. Conjunctiva and sclera are non-icteric and not injected. Cornea within normal limits. Periorbital areas with no swelling, redness, or edema. Neck: Trachea midline, no thyromegaly or masses palpated, and no cervical lymphadenopathy. Supple, full range of motion without nuchal rigidity, or vertebral point tenderness. No Meningismus. Chest/axilla: Normal chest wall appearance and motion. Nontender with no deformity. No lesions are appreciated. Cardiovascular: Regular rate and rhythm with a normal S1 and S2. No gallops, murmurs, or rubs. Normal PMI, no JVD. No pulse deficits. Abdomen/GI: Soft, non-tender, with normal bowel sounds. No distension or tympany. No guarding or rebound. No evidence of tenderness throughout. Back: No spinal tenderness. No costovertebral tenderness. Full range of motion. Skin: Warm, dry with normal turgor. Normal color with no rashes, no lesions, and no evidence of cellulitis. MS/ Extremity: Pulses equal, no cyanosis. Neurovascular intact. Full, normal range of motion. Neuro: Awake and alert, GCS 15, oriented to person, place, time, and situation. Cranial nerves II-XII grossly intact. Motor strength 5/5 in all extremities. Sensory grossly intact. Cerebellar exam normal. Normal gait. Psych: Awake, alert, with orientation to person, place and time. Behavior, mood, and affect are within normal limits. 10:27 Respiratory: mild respiratory distress is noted, moderate respiratory distress is noted, Respirations: labored breathing, that is mild, Breath sounds: wheezing: that is mild, is heard diffusely, Respiratory rate: 23 Vital Signs: 09:02 BP 127 / 72; Pulse 81; Resp 18; Temp 98.8; Pulse Ox 96% on R/A; Weight 88.45 kg; Height iw 6 ft. 1 in. (185.42 cm); Pain 0/10; 10:04 BP 125 / 76; Pulse 73; Resp 23; Temp 98.5(O); Pulse Ox 93% on R/A; mh5 11:28 BP 126 / 72; Pulse 76; Resp 15; Pulse Ox 93% on R/A; bp 12:26 BP 129 / 78; Pulse 77; Resp 16; Pulse Ox 93% on R/A; ss 13:15 BP 132 / 65; Pulse 81; Resp 21; Pulse Ox 96% ; bp 14:00 BP 140 / 70; Pulse 75; Resp 24; Pulse Ox 93% ; bp 15:00 BP 129 / 75; Pulse 73; Resp 19; Pulse Ox 97% ; bp 09:02 Body Mass Index 25.73 (88.45 kg, 185.42 cm) iw MDM: 10:27 Data reviewed: vital signs, nurses notes, lab test result(s). kdr 14:59 Patient medically screened. kdr 07/27 09:35 Order name: Amylase, Serum kdr 07/27 09:35 Order name: Basic Metabolic Panel kdr 07/27 09:35 Order name: Blood Culture Adult (2) kdr 07/27 09:35 Order name: CBC with Diff kdr 07/27 09:35 Order name: Ckmb kdr 07/27 09:35 Order name: CPK kdr 07/27 09:35 Order name: Lactate; Complete Time: 10:26 kdr 07/27 09:35 Order name: LFT's; Complete Time: 11: kdr 07/27 09:35 Order name: Lipase; Complete Time: 11: kdr 07/27 09:35 Order name: Procalcitonin; Complete Time: 11: kdr 07/27 09:35 Order name: Protime (+inr); Complete Time: 10:26 kdr 07/27 09:35 Order name: Ptt, Activated; Complete Time: 10:26 kdr 07/27 09:35 Order name: Troponin (emerg Dept Use Only); Complete Time: 11: kdr 07/27 09:35 Order name: Urine Microscopic Only; Complete Time: 11:47 kdr 07/27 09:35 Order name: Chest Single View XRAY; Complete Time: 12:49 kdr 07/27 09:35 Order name: Amylase; Complete Time: 11: EDOK 07/27 09:35 Order name: Basic Metabolic Panel; Complete Time: 11: EDMS 07/27 09:35 Order name: Blood Culture EDOK 07/27 09:35 Order name: CBC with Automated Diff; Complete Time: 10:26 EDOK 07/27 09:35 Order name: CKMB Creatine Kinase MB; Complete Time: 11: EDMS 07/27 09:35 Order name: Creatine Phosphokinase; Complete Time: 11: EDMS 07/27 10:23 Order name: Glucose, Ancillary Testing; Complete Time: 10:26 EDOK 07/27 10:58 Order name: Urine Dipstick--Ancillary (enter results); Complete Time: 11:01 em 07/27 11:05 Order name: CT Chest W/ Con; Complete Time: 12:49 [facility] 07/27 12:05 Order name: SARS-COV-2 RT PCR; Complete Time: 12:49 EDOK 07/27 14:35 Order name: Blood Culture EDOK 07/27 09:35 Order name: Accucheck; Complete Time: 10:09 kdr 07/27 09:35 Order name: Cardiac monitoring; Complete Time: 10:09 kdr 07/27 09:35 Order name: EKG - Nurse/Tech; Complete Time: 09:45 kdr 07/27 09:35 Order name: IV Saline Lock - Large Bore; Complete Time: 10:02 kdr 07/27 09:35 Order name: Labs collected and sent; Complete Time: 10: kdr 07/27 09:35 Order name: O2 Per Protocol; Complete Time: 09:45 kdr 07/27 09:35 Order name: O2 Sat Monitoring; Complete Time: 09:45 kdr 07/27 09:35 Order name: Urine Dipstick-Ancillary (obtain specimen); Complete Time: 10:57 kdr EC:17 Rate is 81 beats/min. Rhythm is irregularly irregular, A fib with No ectopy. QRS [place] kdr is Normal. LA interval is normal. QRS interval is normal. QT interval is normal. No Q waves. Clinical impression: Atrial Fibrillation. Administered Medications: 09:36 CANCELLED (Physician Discretion): NS 0.9% (30 ml/kg) 30 ml/kg IV at bolus once; Sepsis iw Protocol 10:00 Drug: Xopenex (3) 1.25 mg Route: Inhalation; bp 10:45 Drug: Rocephin - (cefTRIAXone) 1 grams Route: IVPB; Infused Over: 30 mins; Site: right bp forearm; 15:41 Follow up: IV Status: Completed infusion; IV Intake: 100ml bp Disposition: 07/27/20 14:59 Hospitalization ordered by Charles Berumen for Inpatient Admission. Preliminary diagnosis are Pneumonia, unspecified organism, Pleural effusion in conditions classified elsewhere, Shortness of breath. - Bed requested for Telemetry/MedSurg (Inpatient). - Status is Inpatient Admission. bp - Condition is Fair. - Problem is new. - Symptoms have improved. Signatures: Dispatcher [employer] EDMS Mandeep Vanegas MD MD kdr Abby Avina, JIM FERNANDEZ iw Yves, Karl em1 Keith White RN RN bp Corrections: (The following items were deleted from the chart) 09:36 09:35 NS 0.9% (30 ml/kg) 30 ml/kg IV at bolus once; Sepsis Protocol ordered. kdr iw 11:04 10:13 CORONAVIRUS+MR.LAB.BRZ ordered. EDOK EDOK 14:59 14:59 Hospitalization Ordered by Charles Berumen DO for Inpatient Admission. Preliminary em1 diagnosis is Pneumonia, unspecified organism; Pleural effusion in conditions classified elsewhere; Shortness of breath. Bed requested for Telemetry/MedSurg (Inpatient). Status is Inpatient Admission. Condition is Fair. Problem is new. Symptoms have improved. kdr 15:57 14:59 07/27/2020 14:59 Hospitalization Ordered by Charles Prezas DO for Inpatient bp Admission. Preliminary diagnosis is Pneumonia, unspecified organism; Pleural effusion in conditions classified elsewhere; Shortness of breath. Bed requested for Telemetry/MedSurg (Inpatient). Status is Inpatient Admission. Condition is Fair. Problem is new. Symptoms have improved. em1
[2020-07-27] MEDS ORDERED: Levofloxacin500mg IV 500 MG/100 ML BAG IV SCH (15:00)
--- NOTE | 2020-07-27 15:05 | P.HP ---
Certification for Inpatient Patient admitted to: Inpatient With expected LOS: >2 Midnights Patient will require the following post-hospital care: Other (Home oxygen) Practitioner: I am a practitioner with admitting privileges, knowledge of patient current condition, hospital course, and medical plan of care. Services: Services provided to patient in accordance with Admission requirements found in Title 42 Section 412.3 of the Code of Federal Regulations Patient History Date of Service: 07/27/20 Primary Care Provider: Dr. Ballard; Pulmonary-Dr. Schneider; Cardiology-Dr. Ramirez Reason for admission: Shortness of breath History of Present Illness: 80-year-old male with history of COPD, asbestosis, atrial fibrillatio n, hypertension, history of CVA, and CABG x2 vessel. Patient presented with increasing shortness of breath over the last several days. There is some report of a fever of 101 yesterday. He denies significant cough. He further reports patient being seen by legal process specialist in early June. He had a cardioversion done at that time for atrial fibrillation. He reports that an x-ray was done at the time without any significant problems. reports his shortness of breath has been getting worse. Some edema to the lower extremities. She reports oxygen saturations around 80%. He apparently took some over the counter oxygen supplement called Boost Oxygen, that he got at [facility]. Due to increasing shortness of breath the patient into the air for further evaluation. In the ER patient was evaluated. Vital signs stable. Patient afebrile. Blood pressure 129/78. Heart rate 77. Respiratory 16. Oxygen saturations appeared normal. Patient did appear slightly labored when talking. White count 10.0. Hemoglobin 12.8. Sodium 136, potassium 4.0. BUN of 43, creatinine 1.4 with a GFR 49. Glucose 126. Lactic acid and pro calcitonin within normal range. Total bili Velasquez 1.3. Direct bilirubin 0.5. Alk-phos 150. Troponin unremarkable. CT scan revealed scattered ground-glass opacification in the right upper lobe and minimally in the lingula in the right middle lobe. These were suspicious of infiltrate. Patient also had atelectasis to both lungs it appeared chronic. Minimal right pleural effusion and small no moderate partially loculated left pleural effusion noted. Biatrial enlargement with overall cardiomegaly noted. No pericardial fusion noted. Liver appeared to have findings of cirrhosis. COVID test was negative. Patient admitted for further evaluation and treatment. When I saw the patient ER, he did not appear septic. at bedside. Allergies No Known Drug Allergies Allergy (Verified 04/29/20 10:52) Unknown Home medications list reviewed: Yes Home Medications: Nebivolol HCl [Bystolic*] 20 mg PO DAILY 04/05/13 Nifedipine Xl [Procardia Xl*] 90 mg PO DAILY 04/05/13 Simvastatin [Zocor*] 40 mg PO BEDTIME 04/05/13 Metformin HCl 500 mg PO BEDTIME 09/12/13 Torsemide [Demadex*] 20 mg PO DAILY 08/14/14 Aspirin 1 tab PO DAILY 08/27/15 Clopidogrel Bisulfate [Plavix*] 1 tab PO DAILY 08/27/15 Losartan Potassium 1 tab PO DAILY 08/27/15 Potassium Chloride [Klor-Con 10] 2 tab PO BID 08/27/15 cloNIDine HCL [Catapres*] 1 tab PO TID 08/27/15 Methylprednisolone [Medrol dosepack] 4 mg PO DAILY #1 tab.ds.pk 08/28/15 - Past Medical/Surgical History Diabetic: Yes -: Hypertension -: COPD -: Atrial fibrillation with prior cardioversion -: Former tobacco use -: Asbestosis -: Hyperlipidemia -: History of CVA -: CAD with prior CABG x2 -: kidney surgery (stones and partial R kidney removal) -: back surgery -: knee surgery -: TURP -: CABG 2 vessel Psychosocial/ Personal History: Patient - Family History Father -: Lung disease Mother -: Heart disease, Cancer Notes: Colon Cancer-mother. heart disease-mother - Social History Smoking Status: Former smoker Alcohol use: Yes CD- Drugs: No Caffeine use: Yes Place of Residence: Home Review of Systems General: As per HPI Eyes: Unremarkable ENT: Nose Congestion, As per HPI Respiratory: Shortness of Breath, SOB with Excertion, As per HPI Cardiovascular: Unremarkable Gastrointestinal: Unremarkable Genitourinary: Unremarkable Musculoskeletal: Pedal edema, As per HPI Integumentary: Unremarkable Neurological: Unremarkable Lymphatics: Unremarkable Physical Examination - Physical Exam General: Alert, In no apparent distress, Oriented x3, Cooperative HEENT: Atraumatic, Normocephalic, Mucous membr. moist/pink Neck: Supple Respiratory: Diminished (Diminished to the bases bilateral) Cardiovascular: Irregular heart rate/rhythm (AFib rate controlled) Gastrointestinal: Normal bowel sounds, Soft and benign, Non-distended, No tenderness, No masses, No rebound, No guarding Musculoskeletal: No erythema, No tenderness, No warmth Integumentary: Tenderness/swelling (1 to 2+ pitting edema to the lower extremities bilateral) Neurological: Normal speech, Normal strength at 5/5 x4 extr, Normal tone, Normal affect - Studies Laboratory Data (last 24 hrs) 07/27/20 09:52: PT 14.8 H, INR 1.26, APTT 30.5 07/27/20 09:52: WBC 10.2, Hgb 12.8 L, Hct 38.0 L, Plt Count 231 07/27/20 09:52: Sodium 136, Potassium 4.0, BUN 43 H, Creatinine 1.40 H, Glucose 124 H, Total Bilirubin 1.3 H, AST 17, ALT 29, Alkaline Phosphatase 150 H, Amylase 64, Lipase 215 Assessment and Plan - Plan Impression: Dyspnea secondary to right upper/middle lobe pneumonia complicated with bilateral pleural effusion with noted mild to moderate partially loculated left- sided pleural effusion with component of acute on chronic diastolic CHF Hypertension Atrial fibrillation with recent cardioversion not on chronic anti coalition therapy CAD with prior CABG x2 vessel with severe disease History CVA COPD complicated with history of asbestosis and former tobacco use Hyperlipidemia Liver cirrhosis Chronic renal disease stage III Plan: Dyspnea secondary to right upper/middle lobe pneumonia complicated with bilateral pleural effusion with noted mild to moderate partially loculated left- sided pleural effusion with component of acute on chronic diastolic CHF: Patient admitted for further evaluation and treatment. Will maintain oxygen above 93%. Respiratory consulted to further evaluate. Pulmonology consulted for further recommendation. Case discussed with pulmonology. Will start IV Levaquin to cover for pneumonia. Blood, sputum, influenza test pending. Patient is COVID negative. Patient may have component of acute on chronic diastolic CHF. Will start IV Lasix. Will also continue with Aldactone daily. Will order echocardiogram to further evaluate. Recent heart catheterization reviewed. Patient recently seen by electrophysiology for cardioversion. Will continue home medications-aspirin, Nifedipine ER, Lipitor, amiodarone. Cardiology consulted to further evaluate. Will continue to monitor cardiac enzymes and telemetry. Will place on DVT prophylaxis-Lovenox. Will continue to reassess. Will monitor closely. Patient may require home oxygen at discharge. Anticipate improvement over the next 72 hr. I will turn the service over to the hospitalist team tomorrow. I will go plan of care with him. Hypertension: Restart home medication-nifedipine. Obtain and restart other home medication. Atrial fibrillation with recent cardioversion not on chronic anti coagulation therapy: Patient recently had cardioversion at [facility] on July 07. Patient has follow up with legal process specialist within the next 2 weeks. Patient with heart monitor. Cardiology consulted to further evaluate. Continue with amiodarone. Continue aspirin. Patient not on chronic anti coagulation therapy. Continue Lovenox for DVT prophylaxis. CAD with prior CABG x2 vessel with severe disease: Continue aspirin and place on DVT prophylaxis. Recent heart catheterization reviewed. Patient has severe disease. Medical therapy was recommended at that time. Will monitor cardiac enzymes and telemetry. History CVA: Continue aspirin, Lipitor and DVT prophylaxis. COPD complicated with history of asbestosis and former tobacco use: Will provide medication. Maintain sats above 93%. Likely no need for prednisone at this time. Pulmonology consulted for further recommendation. Hyperlipidemia: Will check fasting lipid panel. Continue Lipitor. Liver cirrhosis: This appears new. Will further assess with abdominal ultrasound. Obtain hepatitis panel. This may need to be further investigated by GI as an outpatient. Chronic renal disease stage III: This appears stable. Will monitor closely. Abdominal ultrasound to further evaluate. Discharge Plan: Home Plan to discharge in: 72 Hours - Advance Directives Does patient have a Living Will: No Does patient have a Durable POA for Healthcare: No - Code Status/Comfort Care Code Status Assessed: Yes (Patient is full code) Time Spent Managing Pts Care (In Minutes): 55
[2020-07-27] MEDS ORDERED: IPRATROPIUM BROM 0.5MG/2.5ML NEB PRN (16:09)
[2020-07-27] MEDS ORDERED: ACETAMINOPHEN 500 MG TAB PO PRN (16:09)
[2020-07-27] MEDS ORDERED: ALBUTEROL 2.5 MG/3 ML NEB SOL NEB PRN (16:18)
[2020-07-27] MEDS ORDERED: Levofloxacin 750mg IV 750 MG/150 ML BAG IV SCH ×2 (17:00)
[2020-07-27 17:17] VITALS: BMI 25.7
[2020-07-27 19:21] LABS: Urine Appearance CLEAR; Urine Bilirubin NEGATIVE (NEG); Urine Blood 2+ (NEG); Urine Color YELLOW; Urine Glucose NEGATIVE (NEG); Urine Protein TRACE (NEG); Urine Specific Gravity >=1.030 (1.005-1.030); Urine Urobilinogen 0.2 mg/dL (0.2-1.0)
[2020-07-27 19:48] LABS: Urine Microscopic Reflex ORDER UMIC
[2020-07-27 20:09] LABS: Urine Bacteria <20 /HPF (NONE SEEN); Urine Culture Reflex Order NOT NEEDED
[2020-07-27] MEDS: FUROSEMIDE 20 MG/ 2ML VIAL IV SCH (20:55)
[2020-07-27] MEDS: ATORVASTATIN 40 MG TAB PO SCH (20:55)
[2020-07-27] MEDS: AMIODARONE HCL 200 MG TAB PO SCH (20:55)
[2020-07-27] MEDS: DULERA 200/5 (MOMETASONE/FORMOTEROL) INHALER IH SCH (21:00)
[2020-07-27 21:21] LABS: CKMB Creatine Kinase MB 3.1 ng/mL (0.3-3.6); Creatine Phosphokinase 46 U/L (39-308); Troponin I < 0.02 ng/mL (0.0-0.045)
[2020-07-28 05:11] LABS: Absolute Lymphocytes (CBC) 0.4 K/uL (0.7-4.9); Basophils % 0.6 % (0-1.3); Hematocrit 35.9 % (39.6-49.0); Lymphocytes % 5.3 % (15.3-44.8); MPV 7.9 fL (7.6-11.3); RBC Red Blood Cell Count 3.91 M/uL (4.33-5.43)
[2020-07-28 05:49] LABS: ALT/SGPT 23 U/L (12-78); AST/SGOT 15 U/L (15-37); Albumin 2.8 g/dL (3.4-5.0); Alkaline Phosphatase 131 U/L (45-117); BUN Blood Urea Nitrogen 38 mg/dL (7-18); Bicarbonate 25 mmol/L (21-32); Bilirubin Total 0.8 mg/dL (0.2-1.0); CKMB Creatine Kinase MB 2.5 ng/mL (0.3-3.6); Creatine Phosphokinase 39 U/L (39-308); Glucose Level 102 mg/dL (74-106); HDL Cholesterol 50 mg/dL (40-60); LDL Cholesterol, Calculated 34 (<130); Magnesium 2.2 mg/dL (1.8-2.4); Potassium 4.2 mmol/L (3.5-5.1); Protein, Total 7.2 g/dL (6.4-8.2); Sodium Level 141 mmol/L (136-145); Troponin I < 0.02 ng/mL (0.0-0.045)
--- NOTE | 2020-07-28 08:17 | P.CNS ---
Date of Consult: 07/28/20 Primary Care Provider: Dr. Ballard; Pulmonary-Dr. Schneider; Cardiology-Dr. Ramirez Chief Complaint: Shortness of breath History of Present Illness: Patient is 80 years of age well known to me with a history of moderate COPD recently had a cardioversion has been complaining of shortness of breath reported some fever is having dyspnea prior to having cardioversion his oxygen saturations were low patient was admitted currently doing well shortness of breath has improved. The Lasix helped quite a bit. Patient has chronic pleural effusion on the left side no evidence of saucedo virus infection Allergies No Known Drug Allergies Allergy (Verified 04/29/20 10:52) Unknown Home Medications: Albuterol Sulfate [Albuterol Sulfate Hfa] 2 puff IH Q6H 07/27/20 Amiodarone HCl [Pacerone] 1 tab PO TID 07/27/20 Amlodipine [Norvasc*] 1 tab PO DAILY 07/27/20 Atorvastatin Calcium [Lipitor] 1 tab PO BEDTIME 07/27/20 Bumetanide [Bumex*] 1 tab PO BID 07/27/20 Fluticasone/Vilanterol [Breo Ellipta 100-25 Mcg INH] 1 puff IH DAILY 07/27/20 Losartan Potassium [Cozaar] 1 tab PO DAILY 07/27/20 Spironolactone [Aldactone*] 1 tab PO DAILY 07/27/20 hydroCHLOROthiazide [Hydrodiuril*] 1 tab PO DAILY 07/27/20 - Past Medical/Surgical History Diabetic: Yes -: Hypertension -: COPD -: Atrial fibrillation with prior cardioversion -: Former tobacco use -: Asbestosis -: Hyperlipidemia -: History of CVA -: CAD with prior CABG x2 -: kidney surgery (stones and partial R kidney removal) -: back surgery -: knee surgery -: TURP -: CABG 2 vessel Psychosocial/ Personal History: Patient - Family History Father Medical History: Lung disease Mother Medical History: Heart disease, Cancer Notes: Colon Cancer-mother. heart disease-mother - Social History Smoking Status: Former smoker Alcohol use: Yes CD- Drugs: No Caffeine use: Yes Place of Residence: Home Review of Systems 10-point ROS is otherwise unremarkable General: Weakness Respiratory: Shortness of Breath Physical Examination Temp Pulse Resp BP Pulse Ox 98.6 F 70 18 127/75 94 11/02/20 04:00 07/28/20 04:00 07/28/20 04:00 07/28/20 04:00 07/28/20 04:00 General: Alert, Oriented x3, Cooperative HEENT: Atraumatic Neck: Supple Respiratory: Clear to auscultation bilaterally Cardiovascular: No edema, Irregular heart rate/rhythm Gastrointestinal: Normal bowel sounds, Soft and benign Integumentary: No rashes, No breakdown Laboratory Data (last 24 hrs) 07/27/20 09:52: PT 14.8 H, INR 1.26, APTT 30.5 07/27/20 09:52: WBC 10.2, Hgb 12.8 L, Hct 38.0 L, Plt Count 231 07/27/20 09:52: Sodium 136, Potassium 4.0, BUN 43 H, Creatinine 1.40 H, Glucose 124 H, Total Bilirubin 1.3 H, AST 17, ALT 29, Alkaline Phosphatase 150 H, Amylase 64, Lipase 215 - Problems (1) Pleural effusion Current Visit: Yes Status: Acute Plan: Patient is 80 years of age with a history of moderate COPD possible underlying heart failure he has coronary artery disease CABG in 2016 with a chronic left- sided pleural effusion recent cardioversion he is still in in atrial fibrillation the patient has a recent cardiac catheterization no evidence of sepsis no fever he is patient is feeling better room-air saturation was 93% on 07/27 recommend patient be discharged home continue with Rekha patient to resume taking his Bumex at home 1-2 mg once a day follow up with me next week renal function improved no BNP available patient does not need any antibiotics
[2020-07-28] MEDS: ENOXAPARIN 40 MG/0.4 ML SQ SCH (08:37)
[2020-07-28] MEDS: FUROSEMIDE 20 MG/ 2ML VIAL IV SCH (08:37)
[2020-07-28] MEDS: NIFEDIPINE XL 60 MG TABLET PO SCH (08:37)
[2020-07-28] MEDS: ASPIRIN EC 81 MG TAB PO SCH (08:37)
[2020-07-28] MEDS: DULERA 200/5 (MOMETASONE/FORMOTEROL) INHALER IH SCH ×2 (08:38→21:38)
[2020-07-28] MEDS: AMIODARONE HCL 200 MG TAB PO SCH ×3 (08:39→21:38)
[2020-07-28] MEDS ORDERED: SPIRONOLACTONE 25 MG TABLET PO SCH (09:00)
[2020-07-28] MEDS ORDERED: AMIODARONE HCL 200 MG TAB PO SCH (09:00)
--- NOTE | 2020-07-28 09:05 | RAD REPORT ---
EXAM DESCRIPTION: RAD - Chest Pa And Lat (2 Views) - 07/28/2020 5:58 am CLINICAL HISTORY: RU/ML pneumonia, B Pleural effusions Chest pain. COMPARISON: Chest Single View dated 07/27/2020; Chest Pa And Lat (2 Views) dated 04/29/2020; Chest Pa A nd Lat (2 Views) dated 02/28/2020; Chest Single View dated 11/26/2019 FINDINGS: Emphysematous changes are present throughout the lungs. Mild improvement in bilateral pneu monia pattern is seen since prior study. Slight decrease in the size of the pleural effusions. The he art is mildly enlarged in size. Sternotomy wires are present. IMPRESSION: Mild improvement lung aeration since comparative study.
--- NOTE | 2020-07-28 09:46 | RAD REPORT ---
EXAM DESCRIPTION: US - Abdomen Exam Complete - 07/28/2020 7:54 am CLINICAL HISTORY: Abdominal pain. evaluate for cirrhosis, chronic renal dz COMPARISON: ABDOMINAL EXAM COMPLETE dated 03/17/2015 FINDINGS: The liver is normal in size, shape and echotexture. No focal liver lesions or intrahepatic biliary dilatation is seen. Cholecystectomy. Common bile duct is normal in caliber measuring 7 mm. Both kidneys are normal in size, shape and echotexture. No hydronephrosis. Small bilateral renal calc sharon suspected. Small cyst is present in the cortex of the kidney. The spleen is normal in size measuring 10 cm. The pancreas and aorta are obscured by bowel gas. The visualized aspects of the IVC are grossly normal. IMPRESSION: Small calculi in the kidneys without hydronephrosis.
[2020-07-28] MEDS ORDERED: FUROSEMIDE 20 MG/ 2ML VIAL IV SCH ×2 (14:16→17:00)
[2020-07-28] MEDS: FUROSEMIDE 40 MG/4 ML VIAL IV SCH (17:43)
[2020-07-28] MEDS ORDERED: ALBUMIN HUMAN 25% 100 ML IV ONE (18:00)
--- NOTE | 2020-07-28 20:00 | CON ---
Date of Consultation: 07/28/2020 Reason For Consultation: Shortness of breath. History Of Present Illness: A 80-year-old male with history of COPD, atrial fibrillation, hypertensi on, CVA, coronary artery disease with 2-vessel CABG, presented with shortness of breath, orthopnea, l ower extremity edema, and he reported fever. No nausea, vomiting, or diarrhea. No chest pain. Tan a is getting worse. The shortness of breath has been building up and he is having to sleep up, recli jed himself due to shortness of breath. Past Medical History: As outlined above in the HPI. Medications: Refer to reconciliation sheet for detailed list. Allergies: NO KNOWN DRUG ALLERGIES. Past Surgical History: He had back surgery, knee surgery, TURP, and 2-vessel CABG. Family History: No premature coronary artery disease, but there is colon cancer on mother's side. Social History: Does not smoke or drink. Does not use any drugs. Review of Systems: All systems reviewed and they were negative except what is mentioned in the HPI. Physical Examination: Vital Signs: Temperature is 97.6, pulse 68, breathing at 18, blood pressure 134/72, saturating 98%. General: Pleasant elderly male, in no distress. Head and Neck: Pupils are equal, react to light. Intact eye movements. No JVD. No cyanosis. Neck is supple. Thyroid is not enlarged. Lungs: Clear to auscultation bilaterally. No rhonchi, rales, or crackles. No accessory muscle use. Heart: Irregularly irregular. No extra sounds. Abdomen: Soft, nontender. Bowel sounds positive. No organomegaly. No masses or hernias. No rigid ity or rebound. Extremities: No edema, clubbing, cyanosis. Intact pulses. Skin: No rash noted. Neurologic: Alert, awake, oriented x3. No acute focal deficits appreciated. Investigations: CT scan showed bilateral infiltrates, possible heart failure, minimal right pleural effusion, [id number] partially loculated left pleural effusion. Assessment And Plan: 1.Findings suggestive of congestive heart failure exacerbation, responded very well to IV diuretics. Patient had a heart catheterization in April, medical management was recommended. Recommend to co ntinue IV diuresis. The patient is responding very well to that, and given that troponins are negati ve, continue medical management of coronary artery disease. Monitor BUN, creatinine, and electrolyte s while on diuretics. 2.Significant coronary artery disease as outlined above with patent left internal mammary artery gra ft to left anterior descending artery. Recommend to continue medical treatment with coronary vasodil ators, aspirin, high-dose statin, and reevaluate only if patient starts having symptoms of chest pain . 3.Obtain an echocardiogram if it was not done recently. /DENNY Voice ID: [id number] Report ID: [id number]
[2020-07-28] MEDS: ATORVASTATIN 40 MG TAB PO SCH (21:37)
[2020-07-28] MEDS: SPIRONOLACTONE 25 MG TABLET PO SCH (21:38)
[2020-07-29] MEDS: FUROSEMIDE 40 MG/4 ML VIAL IV SCH (02:03)
[2020-07-29 05:58] LABS: Absolute Lymphocytes (CBC) 0.5 K/uL (0.7-4.9); Basophils % 0.6 % (0-1.3); Hematocrit 35.8 % (39.6-49.0); Lymphocytes % 6.8 % (15.3-44.8); MPV 7.8 fL (7.6-11.3); RBC Red Blood Cell Count 3.88 M/uL (4.33-5.43)
[2020-07-29 06:07] LABS: Albumin 3.2 g/dL (3.4-5.0); Bilirubin Total 0.9 mg/dL (0.2-1.0); Magnesium 2.3 mg/dL (1.8-2.4); Potassium 4.3 mmol/L (3.5-5.1); Protein, Total 7.5 g/dL (6.4-8.2)
--- NOTE | 2020-07-29 08:35 | ECHO ---
HEIGHT: 6 ft 1 in WEIGHT: 195 lb 0 oz DATE OF STUDY: 07/28/[address]: Charles Berumen DO 2-DIMENSIONAL: YES M.MODE: YES DOPPLER: YES COLOR FLOW: YES TDS: NO PORTABLE: NO DEFINITY: NO BUBBLE STUDY: NO DIAGNOSIS: DYSPNEA, CONGESTIVE HEART FAILURE CARDIAC HISTORY: CATHERIZATION: YES SURGERY: YES PROSTHETIC VALVE: NO PACEMAKER: NO MEASUREMENTS (cm) DIASTOLIC (NORMALS) SYSTOLIC (NORMALS) IVSd 1.2 (0.6-1.2) LA Diam 3.8 (1.9-4.0) LVEF 61% LVIDd 3.9 (3.5-5.7) LVIDs 2.6 (2.0-3.5) %FS 32% LVPWd 1.3 (0.6-1.2) Ao Diam 3.2 (2.0-3.7) 2 DIMENSIONAL ASSESSMENT: RIGHT ATRIUM: ENLARGED LEFT ATRIUM: ENLARGED RIGHT VENTRICLE: NORMAL LEFT VENTRICLE: NORMAL TRICUSPID VALVE: MITRAL VALVE: PULMONIC VALVE: NORMAL AORTIC VALVE: PERICARDIAL EFFUSION: NONE AORTIC ROOT: NORMAL LEFT VENTRICULAR WALL MOTION: NORMAL DOPPLER/COLOR FLOW: SEE BELOW COMMENTS: NORMAL LEFT VENTRICULAR EJECTION FRACTION 55-60% WITH NORMAL WALL MOTION. MILD TO MODERATE LEFT VENTRICULAR HYPERTROPHY. MODERATE TRICUSPID AND MITRAL REGURGITATION. MILD AORTIC STENOSIS. MILD AORTIC INSUFFICIENCY. SEVERE PULMONARY HYPERTENSION WITH RIGHT VENTRICULAR SYSTOLIC PRESSURE >60 mmHg. RESTRICTIVE DIASTOLIC DYSFUNCTION, SEVERE ELEVATED FILLING PRESSURES. TECHNOLOGIST: Ann Marie OLSON
--- NOTE | 2020-07-29 08:37 | P.PN ---
Subjective Date of Service: 07/29/20 Primary Care Provider: Dr. Ballard; Pulmonary-Dr. Schneider; Cardiology-Dr. Ramirez Chief Complaint: Congestive heart failure Subjective: Improving (Patient is doing much better on diuretics no new complaints) Review of Systems General: Weakness Respiratory: Shortness of Breath Physical Examination - Vital Signs Temperature: 97.9 F Blood Pressure: 133/70 Pulse: 68 Respirations: 18 Pulse Ox (%): 95 - Physical Exam General: Alert, In no apparent distress, Oriented x3 Respiratory: Clear to auscultation bilaterally Cardiovascular: No edema, Irregular heart rate/rhythm Assessment & Plan - Problems (Diagnosis) (1) Pleural effusion Current Visit: Yes Status: Acute Plan: Most likely patient has severe diastolic dysfunction continue with diuretics consider adding some spironolactone patient has inhaled bronchodilators at home due to moderate COPD check room air pulse ox Dc hydrochlorothiazide follow with me in 1 or 2 weeks
[2020-07-29] MEDS: ASPIRIN EC 81 MG TAB PO SCH (09:23)
[2020-07-29] MEDS: NIFEDIPINE XL 60 MG TABLET PO SCH (09:23)
[2020-07-29] MEDS: SPIRONOLACTONE 25 MG TABLET PO SCH (09:23)
[2020-07-29] MEDS: AMIODARONE HCL 200 MG TAB PO SCH (09:23)
[2020-07-29] MEDS: ENOXAPARIN 40 MG/0.4 ML SQ SCH (09:23)
[2020-07-29] MEDS: DULERA 200/5 (MOMETASONE/FORMOTEROL) INHALER IH SCH (09:24)
[2020-07-29 12:53] VITALS: O2SAT 97
[2020-07-29 13:18] VITALS: BP 133/75; TEMP 97.6
--- NOTE | 2020-07-29 15:43 | PN ---
Date of Progress Note: 07/29/2020 Subjective: The patient was seen yesterday by Dr. Garrison for congestive heart failure exacerbation. He has a history of COPD, CABG, CHF, hypertension, atrial fibrillation, and CVA. Was recently seen by Dr. Babb and had a cardioversion. He is not taking any oral anticoagulants. He basically had b een diuresing with IV Lasix and has done much better overnight. This morning, he denied any shortnes s of breath, PND, orthopnea, pedal edema. Physical Examination: Vital Signs: Stable. He is in atrial fibrillation, rate of 78. Chest: Clear. Cardiac: Revealed AFib. Extremities: Revealed no edema. Assessment Plan: He will be going home today with his home medications. He has an appointment with Dr. Babb on 08/05/2020. I will contact Dr. Babb to let him know the patient is back in atrial fi brillation and further decisions will be made after that. He can go home today and I will see him in the office in a couple of weeks. ANDREIA/DENNY Voice ID: [id number] Report ID: [id number]
[2020-07-30 10:27] LABS: HBsAG Nonreactive (Nonreactive)
== END 2020-07-29 14:10 | disposition home or self-care (01) | DRG 291 ==
LOC: ER 08:51 → ERHOLD 14:05 → 2ND 15:39
PROVIDERS: ADMIT Family Medicine; ATTEND Hospitalist
DX: I13.0 Hypertensive heart and chronic kidney disease with heart failure and stage 1 through stage 4 chronic kidney disease, or unspecified chronic kidney disease (principal); J18.9 Pneumonia, unspecified organism; I50.33 Acute on chronic diastolic (congestive) heart failure; J44.0 Chronic obstructive pulmonary disease with (acute) lower respiratory infection; N18.30 Chronic kidney disease, stage 3 unspecified; E11.22 Type 2 diabetes mellitus with diabetic chronic kidney disease; E78.5 Hyperlipidemia, unspecified; K74.60 Unspecified cirrhosis of liver; I25.10 Atherosclerotic heart disease of native coronary artery without angina pectoris; I48.91 Unspecified atrial fibrillation; Z79.82 Long term (current) use of aspirin; Z79.899 Other long term (current) drug therapy; Z86.73 Personal history of transient ischemic attack (TIA), and cerebral infarction without residual deficits; Z90.49 Acquired absence of other specified parts of digestive tract; Z79.84 Long term (current) use of oral hypoglycemic drugs; Z87.891 Personal history of nicotine dependence; Z79.01 Long term (current) use of anticoagulants; Z95.1 Presence of aortocoronary bypass graft; Z20.828 Contact with and (suspected) exposure to other viral communicable diseases
CPT/HCPCS: 36415; 71045; 71046; 71260; 76700; 80048; 80053; 80061; 80074; 80076; 81003; 81015; 82150; 82550; 82553; 82947; 83605; 83690; 83735; 84145; 84439; 84443; 84484; 85025; 85610; 85730; 87040; 87070; 87077; 87186; 87205; 87804; 93005; 93306; 96365; 96366; 99285; J0696; J1650; J1940; J7606; P9047; Q9967; U0003

== ENCOUNTER 2020-11-28 13:56 | Inpatient (IN) | payer OTHER ==
--- OUTSIDE RECORDS SUMMARY | 2020-11-28 14:03 | XMS REPORT | Continuity of Care Document ---
:1940 Author Organization [facility] t Address [address] [place] [address] Dr. Thomas. [address] [place] [address] Care Team Providers Name Role Phone Macy [...] Date Expiration Date Sour ce Number HUMANA [id number] 2018 [place] [facility]ian[facility] MEDICARE PPO/PFFS/ERS [id number]/09/2018 -PresentPPO Problems Condition Condition Condition Status Onset Resolution Last Treating Co mments Source Name Details Category Date Date Treatment Clinician Date Persistent Persistent Disease Active 2019- [place] atrial atrial 0-12 Methodi fibrillati fibrillati 00:00: st on on 00 FOLLOW UP Diagnosis Active 2017-02-18 Memoria 3- 08:41:00 l FOLLOW 00:00: [place] UP 00 Active 7 [facility] AFIB Diagnosis Active 2016-01-02 Mem oria 12-28 08:40:00 l AFIB 00:00: [place] 00 Active 12/29/2015 [facility] CCL/*MAC Diagnosis Active 2015-12-31 M emoria ANESTHESIA 12-28 16:44:00 l */CARDIOVE CCL/*MAC 00:00: He rmann RSION/DX: ANESTHESIA 00 A */CARDIOVE RSION/DX: A Active 12/29/2015 [facility] LSA Diagnosis Active 2015-10-31 [facility] oria 10-23 09:10:00 l LSA 00:00: [place] 00 Active 10/23/2015 [facility] HOSPITAL Diagnosis Active 2015-10-27 M emoria FOLLOW UP 10-22 09:16:00 l HOSPITAL 00:00: Maury n FOLLOW UP 00 Active 10/22/2015 [facility] A FIB Diagnosis Active 2015-10-23 [facility] oria 09-29 21:56:00 l A FIB 00:00: [place] 00 Active 09/29/2015 [facility] INTITAL Diagnosis Active 2014-092015-10-24 Me moria CONSULT 11-23 15:13:00 l INTITAL 00:00: [place] CONSULT 00 Active 09/22/2015 [facility] POST TPA Diagnosis Active 2014-092015-09-30 M emoria 11-20 14:48:00 l POST TPA 19:00: Maury n 00 Active 09/19/2015 [facility] CVA Diagnosis Active 2014-092015-09-19 [facility] oria 11-20 21:57:00 l CVA 19:00: [place] 00 Active 09/19/2015 [facility] ELLE Diagnosis Active 2014-092015-09-19 Memoria BILLING 11-20 21:54:00 l LFLT 00:00: [place] #[id number] ELLE 00 BILLING LFLT #6335-A Active 09/19/2015 [facility] Atrial Problem Resolve 2017-02-21 Adam whitney fibrillati d 00:05:27 l on Atrial [place] (disorder) fibrillati on (disorder) Resolved Problem 02/21/2017 [facility], BETTINA Tompkins,[facility] Congestive Problem Resolve 2017-02-21 Memoria heart d 00:05:27 l failure [place] (disorder) Congestive heart failure (disorder) Resolved Problem 02/21/2017 [facility], BETTINA Tompkins, [facility] Chronic Problem Resolve 2017-02-21 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:27 l e lung Chronic [place] disease obstructiv (disorder) e lung disease (disorder) Resolved Problem 02/21/2017 [facility], BETTINA Tompkins, [facility] Diabetes Problem Resolve 2017-02-21 Me moria mellitus d 00:05:27 l (disorder) Diabetes He r[place] mellitus (disorder) Resolved Problem 02/21/2017 [facility], BETTINA Tompkins, [facility] Hypertensi Problem Resolve 2017-02-21 Memoria ve d 00:05:27 l disorder, [place] systemic Hypertensi arterial ve (disorder) disorder, systemic arterial (disorder) Resolved Problem 02/21/2017 [facility], BETTINA Tompkins, [facility] Cerebrovas Problem Resolve 2017-02-21 Memoria cular d 00:05:27 l accident [place] (disorder) Cerebrovas cular accident (disorder) Resolved Problem 02/21/2017 [facility], BETTINA Tompkins, [facility] S/P ADMN Diagnosis Active 2015-09-30 M emoria TPA IN 14:48:00 l DIFF FAC S/P ADMN Herm napoleon W/N LAST TPA IN 24 HR DIFF FAC W/N LAST 24 HR Active [facility] MEDICAL Diagnosis Active 2016-01-29 Me moria SERVICES 12:31:00 l NOT MEDICAL [place] AVAILABLE SERVICES IN HOME NOT AVAILABLE IN HOME Active [facility] UNSPECIFIE Diagnosis Active 2015-10-23 Memoria D ATRIAL 21:56:00 l FIBRILLATI Maury n ON UNSPECIFIE D ATRIAL FIBRILLATI ON Active [facility] ENCNTR FOR Diagnosis Active 2017-02-18 Memoria GENERAL 08:41:00 l ADULT ENCNTR [place] MEDICAL FOR EXAM W/ GENERAL ADULT MEDICAL EXAM W/ Active [facility] Allergies, Adverse Reactions, Alerts This patient has no known allergies or adverse reactions. Social History Social Habit Start Date Stop Date Quantity Comments Source Sex Assigned At [facility] ethodist Cigarettes smoked 2020-07-11 2020-07-11 Musa Blandon current (pack per 00:00:00 00:00:00 day) - Reported Cigarette 2020-07-11 2020-07-11 Musa Bradley ist pack-years 00:00:00 00:00:00 Tobacco use and 2020-07-11 2020-07-11 Never used Vigil Gabe ethodist exposure 00:00:00 00:00:00 Alcohol intake 2020-07-11 2020-07-11 Current drinker [place] Confucianist 00:00:00 00:00:00 of alcohol (finding) Tobacco Comment 2020 2020 Qick about 45yrs Nayeli ston Confucianist 00:00:00 00:00:00 ago Alcohol Comment 2020 2020 a week Musa Gabe ethodist 00:00:00 00:00:00 Smoking Status Start Date Stop Date Source Former smoker 2020-07-11 00:00:00 2020-07-11 00:00:00 Musa Blandon Social History [facility] Medications Ordered Filled Start Stop Current Ordering [...] 1 Vigil 3/E/linol/a 0-12 tablet by [facility] mayorga la/oleic/gl 08:48: mouth st a/lip 40 daily [...] day. UNABLE TO 2019-09 Yes Goat weed1 Amado saxena FIND 0-12 tablet Methodi 08:48: ever other [...] 100 mg at bedtime amIODarone 2019-09 2020- No 200mg QD Take 0.5 [place] (PACERONE) 0-12 11-11 tablets Metho di 400 MG 00:00: 23:59 ([address] tablet 00 :00 total) by mouth daily for 30 days. Take 200 mg daily bumetanide Yes 1 mg = 1 Mem oria 1 mg oral 5-26 tab, PO, l tablet 15:32: BID, # 180 Danette nn 00 tab, 3 Refill(s), Pharmacy: [facility] #[id number] nebivolol Yes 10 mg = 1 Mem oria 10 MG Oral 5-26 tab, PO, l Tablet 13:51: Daily [place] [Bystolic] 00 Microencaps Yes 20 mEq = 1 Memoria ulated 1-27 tab, PO, l Potassium 21:40: BID, # 180 He rmann Chloride 20 38 tab, 3 MEQ Refill(s), Extended Pharmacy: [id number] [Klor-Con] nebivolol 5 Yes 5 mg = 1 Me moria MG Oral 1-27 tab, PO, l Tablet 21:40: Daily, # [place] [Bystolic] 00 90 tab, 3 Refill(s), Pharmacy: [facility] #[id number] atorvastati 2016- Yes 40 mg = 1 M emoria n 40 mg 1-27 tab, PO, l oral tablet 21:39: Bedtime, # [place] 42 90 tab, 3 Refill(s), Pharmacy: [facility] #[id number] 24 HR Yes 60 mg = 1 Memoria Nifedipine 1-27 tab, PO, l 60 MG 21:39: Daily, # [place] Extended 41 90 tab, 3 Release Refill(s), Tablet Pharmacy: [facility] #[id number] bumetanide Yes 2 mg = 4 Mem oria 0.5 mg oral 1-27 tab, PO, l tablet 21:39: BID, # 240 Danette nn 39 tab, 6 Refill(s), Pharmacy: [facility] #[id number], Patient is due for follow up appointmen t Potassium 2015- Yes 20 mEq = 1 Me moria Chloride 20 7-20 tab, PO, l MEQ 21:11: BID, # 180 [place] Extended 00 tab, 3 Release Refill(s), Tablet Pharmacy: [[facility]] [id number] bumetanide Yes 2 mg = 4 Mem oria 0.5 mg oral 5-31 tab, PO, l tablet 14:03: BID, [place] 07 patient is due for follow up appointmen t, # 240 tab, 6 Refill(s), Pharmacy: [facility] #[id number], Patient is due for follow up appointmen t bumetanide Yes 2 mg = 4 Mem oria 0.5 mg oral 4-19 tab, PO, l tablet 22:20: BID, [place] 00 patient is due for follow up appointmen t, # 240 tab, 0 Refill(s), Pharmacy: [facility] #[id number], Patient is due for follow up appointmen t sucralfate Yes 1 gm = 1 Mem oria 1 g oral 4-08 tab, PO, l tablet 14:14: QID-Before Danette nn 00 Meals, 0 Refill(s) AMIODarone 2016-0 Yes 200 mg = 1 M emoria 200 mg oral 4-08 tab, PO, l tablet 14:14: Daily, 0 [place] Refill(s) nebivolol 5 Yes 5 mg = 1 Me moria MG Oral 4-08 tab, PO, l Tablet 14:14: Daily, 0 [place] [Bystolic] 00 Refill(s) Sucralfate Yes 1 gm = 10 Me moria 100 MG/ML 4-08 mL, PO, l Oral 14:14: QID-Before [place] Suspension 00 Meals, 0 [Carafate] Refill(s) bumetanide Yes 1 mg = 2 Mem oria 0.5 mg oral 4-08 tab, PO, l tablet 14:14: BID, 0 [place] Refill(s) bumetanide Yes 1 mg = 2 Mem oria 0.5 mg oral 2-03 tab, PO, l tablet 17:41: BID Potassium Yes 20 mEq = 1 Me moria Chloride 20 2-03 tab, PO, l MEQ 17:41: BID [place] Extended 00 Release Tablet [Klor-Con] Metolazone Yes 2.5 mg = 1 M emoria 2.5 MG Oral 1-25 tab, PO, l Tablet 20:53: Q- and [place] , # 30 tab, 1 Refill(s) polyethylen Yes [...] PO, l 60 MG 20:44: Daily, # [place] Extended 90 tab, 3 Release Refill(s) Tablet nebivolol 5 Yes 5 mg = 1 Me moria mg oral 1-25 tab, PO, l tablet 20:44: Daily, # [place] 90 tab, 3 Refill(s) Metolazone No 2.5 mg = 1 M emoria 2.5 MG Oral 1-25 tab, PO, l Tablet 20:44: Q-, # Danette nn 00 90 tab, 3 Refill(s) bumetanide Yes 2 mg = 4 Mem oria 0.5 mg oral 1-25 tab, PO, l tablet 20:44: BID, # 180 Danette nn 00 tab, 1 Refill(s) atorvastati Yes 40 mg = 1 M emoria n 40 mg 1-25 tab, PO, l oral tablet 20:44: Bedtime, # [place] 00 90 tab, 3 Refill(s) Aspirin Low [...] tab, PO, l tablet 16:24: BID, 0 [place] 00 Refill(s) AMIODarone No 200 mg = 1 M emoria 200 mg oral 1-25 tab, PO, l tablet 16:24: BID, 0 [place] 00 Refill(s) potassium No 10 mEq = Adam whitney chloride 1-25 50 mL, l 16:24: IVPB, PRN, [place] 00 PRN Abnormal Lab Result, 0 Refill(s) nebivolol 5 No 5 mg = 1 Me moria mg oral 1-25 tab, PO, l tablet 16:24: Daily, 0 [place] 00 Refill(s) 24 HR No 60 mg = 1 Memoria Nifedipine 1-25 tab, PO, l 60 MG 16:24: Daily, 0 [place] Extended 00 Refill(s) Release Tablet Metolazone No 2.5 mg = 1 M emoria 2.5 MG Oral 1-25 tab, PO, l Tablet 16:24: , 0 Danette nn 00 Refill(s) Metolazone No Notes: Memor ia 2.5 MG Oral 1-25 (Same as: l Tablet 15:00: Zaroxolyn) Danette nn 00 Bumex No Notes: Memoria 1-25 (Same As: l 13:00: Bumex) [place] 00 Diuril No Notes: Memoria 1-24 (Same As: l 16:33: Diuril [place] 00 Sodium) Diuril No 250 mg, Memoria 24 Route: PO, l 00:30: ONCE, [place] Dosing Weight 101.007, kg, Start date: 10/18/15 18:30:00, Stop date: 10/18/15 18:30:00 Diuril No Notes: Memoria Sodium + 24 (Same As: l Sodium 00:00: Diuril [place] Chloride 00 Sodium) 0.9% IV 50 mL Potassium No Notes: Memori a Chloride 20 -23 (Same as: l MEQ 23:00: K-Dur 20) [place] Extended "Do Not Release Crush" Tablet With food and full glass of water Diuril No Notes: Memoria 1-23 (Same As: l 16:46: Diuril [place] 00 Sodium) bumetanide No Notes: Memor ia 10 mg -22 (Same as: l 22:30: Bumex) [place] 00 Venofer No Notes: Memoria 1-19 Each 5ml l 22:00: contains [place] 100mg elemental iron. Mix with NS (Same as:Venofer ) Administer IV only. MEDICATION WASTE Product Size: 100 mg Product Wasted: ___ mg Aspirin No Notes: Do Memor ia 1-19 not crush l 15:00: or chew. [place] 00 (Same As: Ecotrin) heparin No Notes: Memoria 1-18 porcine l 20:00: heparin [place] 00 potassium No Notes: Memori a phosphate + 1-18 (Same as: l Sodium 17:41: K [place] Chloride 00 Phosphate. 0.9% IV [...] [place] 00 Infuse over 2 hours. Magnesium 2016-0 No 2 gm, 50 Adam whitney Sulfate 1-18 mL, Route: l 17:41: IVPB, Drug [place] 00 form: INJ, PRN, Dosing Weight 101.007, kg, PRN Abnormal Lab Result, For NON-ICU Patients Only., Start date: 10/13/15 11:41:00, Duration: 30 day, Stop date: 11/12/15 11:40:00 sodium 2016- No 30 mmol, Memoria phosphate + 1-18 10 mL, l Sodium 17:41: Route: [place] Chloride 00 IVPB, PRN, 0.9% IV 250 Dosing mL Weight 101.007, kg, PRN Abnormal Lab Result, For NON-ICU Patients Only., Start date: 10/13/15 11:41:00, Duration: 30 day, Stop date: 11/12/15 11:40:00 Calcium 2016-0 No 2 gm, 20 Memori a Gluconate 1-18 mL, Route: l 17:41: IVPB, PRN, [place] 00 Dosing Weight 101.007, kg, PRN Abnormal Lab Result, For NON-ICU Patients Only., Start date: 10/13/15 11:41:00, Duration: 30 day, Stop date: 11/12/15 11:40:00 Magnesium 2015- No Notes: Memori a Oxide 1-18 (Same as: l 17:41: Mag-Ox [place] 00 400) Magnesium oxide 488on=944f g elemental magnesium Dose=____m g magnesium oxide (___mg elemental magnesium) bumetanide No Notes: Memor ia 10 mg -18 (Same as: l 17:40: Bumex) [place] Trazodone No Notes: Memori a 1-17 (Same As: l 12:53: Desyrel) [place] 00 Melatonin 3 No Notes: Adam whitney MG Extended -17 (Same as: l Release 06:51: Melatonin) Herm napoleon Tablet 00 Lasix No Notes: Memoria 1-16 (Same as: l 15:00: Lasix) [place] 00 MEDICATION WASTE Product Size: 40 mg Product Wasted: ___ mg Maalox No Notes: Memoria Advanced 1-16 (aluminum l Regular 15:00: hydroxide- Herm napoleon Strength 00 magnesium SUSP hyd-simeth icone 200-200-20 mg/5ml 30 ml ud ALEISHA) Fentanyl No Notes: Memoria 1-16 (Same as: l 12:57: Sublimaze) [place] 00 Preservat javi free. Lasix No Notes: Memoria 1-14 (Same as: l 19:00: Lasix) [place] 00 MEDICATION WASTE Product Size: 40 mg Product Wasted: ___ mg Miralax No Notes: Memoria 1-13 Dissolve l 15:00: in 8 oz of [place] 00 water or juice. (Same as: Miralax) Bystolic No Notes: Memoria 1-13 (same as: l 15:00: Bystolic) [place] 00 Potassium No Notes: Memori a Chloride 20 1-13 (Same as: l MEQ 15:00: K-Dur 20) [place] Extended 00 "Do Not Release Crush" Tablet With food and full glass of water 24 HR No Notes: Memoria Nifedipine 1-13 (Same as: l 60 MG 15:00: Adalat CC, Maury n Extended 00 Procardia Release XL) Give Tablet on empty stomach. Take 1 hour before or 2 hours after meal; "Avoid grapefruit and grapefruit juice". Do not crush Lasix No Notes: Memoria 1-13 (Same as: l 15:00: Lasix) [place] 00 MEDICATION WASTE Product Size: 40 mg Product Wasted: _0__ mg molasses No Notes: Memoria 1-13 (Same l 14:32: as:Molasse [place] 00 s) Simethicone No Notes: Adam whitney 1-12 (Same as: l 23:31: Mylicon) [place] 00 Dulcolax No Notes: Memoria Laxative -12 (Same As: l 19:08: Dulcolax, [place] 00 [place]isco-Lax) Bystolic No Notes: Memoria 1-12 (same as: l 19:07: Bystolic) Magnesium No Notes: Memori a Oxide - (Same as: l 12:45: Mag-Ox 400) Magnesium oxide 617cx=811k g elemental magnesium Dose=____m g magnesium oxide (___mg elemental magnesium) potassium No Notes: Memori a chloride -12 (Same as: l 12:44: K-Dur 20) "Do Not Crush" With food and full glass of water Calcium No Notes: Memoria Carbonate - (Same As: l 12:44: Tums) Calcium Carbonate 500 mg = 200 mg elemental calcium Dose = mg calcium carbonate ( mg elemental calcium) Lasix No Notes: Memoria 1-11 (Same as: l 23:00: Lasix) May cause GI upset. Give with food or milk. Hydralazine No Notes: Adam whitney 1-11 (Same as: l 04:56: Apresoline ) Push over 5 minutes Dulcolax No Notes: Memoria Laxative - (Same As: l 15:11: Dulcolax, [place] Bisco-Lax) potassium No Notes: Memori a chloride 1- (Same as: l 12:46: K-Dur 20) "Do Not Crush" With food and full glass of water Simethicone No Notes: Adam whitney 1-09 (Same as: l 08:54: Mylicon) Amiodarone No Notes: Memor ia 1-08 (Same as: l 23:00: Cordarone) carvedilol No Notes: Memor ia 10-03 Give with l 17:32: food. [place] (Same As: Coreg) Acetaminoph No Notes: Do M emoria en 325 MG / 10-02 not exceed l Hydrocodone 19:35: 4gm/day of [place] Bitartrate acetaminop 10 MG Oral hen. Tablet (Same as: [[place] 10/325] 325/10) senna 8.6 No Notes: Memori a mg oral 10-02 (Same as: l tablet 18:29: Senokot) sodium No 50 ml, Memoria bicarbonate 10-02 Route: l 8.4% 00:27: IVP, [place] 00 Dosing Weight 97.273, kg, ONCE, Start date: 10/01/15 18:27:00, Stop date: 10/01/15 18:27:00 Dopamine No Notes: Memoria 10-01 (Same as: l 20:57: Intropin) Administer by either central venous catheter or peripheral ly-inserte d central catheter (PICC) line. Final conc = 3.2 mg/ml. Premix solution. Sodium No 500 mL, Memoria Chloride 10-01 1000 l 0.154 19:41: ml/hr, [place] MEQ/ML 00 Infuse Injectable Over: 0.5 Solution [...] e 10-01 IV push l 15:00: reconstitu [place] te with 10 ml 0.9% sodium chloride and push over 2 minutes. (Same as: Protonix) Docusate No Notes: Memoria Sodium 100 10-01 (Same as: l MG Oral 15:00: Colace) [place] Capsule (Do Not [Colace] Crush) Aspirin 325 No Notes: Adam whitney MG Enteric 10-01 Take with l Coated 15:00: food. [place] Tablet Aspirin 300 No Notes: Adam whitney MG Rectal 10-01 Refrigerat l Suppository 15:00: e. Maury n 00 Dopamine No Notes: Memoria 10-01 (Same as: l 14:41: Intropin) [place] Administer by either central venous catheter or peripheral ly-inserte d central catheter (PICC) line. Final conc = 3.2 mg/ml. Premix solution. sodium No Notes: Memoria bicarbonate 10-01 (sodium l 8.4% 10:38: bicarb [place] 00 8.4% (1 mEq/ml) 50 ml VL) Sodium No 1,000 mL, Memori a Chloride 10-01 1,000 l 0.154 07:52: ml/hr, [place] MEQ/ML 00 Infuse Injectable Over: 1 Solution [...] 10-01 30 mL, l Sodium 04:41: Route: [place] Chloride 00 IVPB, 0.9% IV 100 ONCE, mL Start date: 09/30/15 22:41:00, Stop date: 09/30/15 22:41:00 ceFAZolin No Notes: Memori a (SCIP) 10-01 Same as: l 03:30: Ancef [place] 00 sodium No Notes: Memoria bicarbonate 10-01 (sodium l 8.4% 03:09: bicarb [place] 00 8.4% (1 mEq/ml) 50 ml VL) atorvastati No Notes: Adam whitney n 1-06 (Same as: l 03:00: Lipitor) [place] 00 Vancomycin 2015-0 No 2000 mg: Me moria 6.67 MG/ML -06 infuse l Injectable 03:00: over 2.5 Her contreras Solution 00 hours MEDICATION WASTE Product Size: 1000 mg Product Wasted: ___ mg Sodium 2016-0 No 1,000 mL, Memori a Chloride -06 1,000 l 0.154 01:47: ml/hr, [place] MEQ/ML 00 Infuse Injectable Over: 1 Solution hr, Route: IV, 1,000, Drug form: INJ, ONCE, Priority: STAT, Dosing Weight 97.273 kg, Start date: 09/30/15 19:47:00, Duration: 1 doses or times, Stop date: 09/30/15 19:47:00 Neutra-Phos 2015-0 No Notes: Adam whitney -06 (Same as: l 01:44: Neutra-Stephanie [place] 00 s) Each 1.25 gm pkt has 250mg phosphorou s. Mix w/2.5oz water and stir. Magnesium 2016- No 2 gm, 50 Adam whitney Sulfate 1-06 mL, Route: l 01:44: IVPB, Drug [place] 00 form: INJ, PRN, Dosing Weight 97.273, kg, PRN Abnormal Lab Result, Start date: 09/30/15 19:44:00, Duration: 30 day, Stop date: 10/30/15 19:43:00, FOR ICU USE ONLY sodium 2015- No 15 mmol, 5 Memor ia phosphate + 1-06 mL, Route: l Sodium 01:44: IVPB, PRN, Danette nn Chloride 00 Dosing 0.9% IV 250 Weight mL 97.273, kg, PRN Abnormal Lab Result, Start date: 09/30/15 19:44:00, Duration: 30 day, Stop date: 10/30/15 19:43:00, FOR ICU USE ONLY potassium 2015-0 No Notes: Memori a chloride -06 (Same as: l 01:44: Potassium [place] 00 Chloride) Calcium 2016-0 No 1 gm, 10 Memori a Gluconate 1-06 mL, Route: l 01:44: IVPB, PRN, [place] Dosing Weight 97.273, kg, PRN Abnormal Lab Result, Start date: 09/30/15 19:44:00, Duration: 30 day, Stop date: 10/30/15 19:43:00, FOR ICU USE ONLY Magnesium No Notes: Memori a Oxide 10-01 (Same as: l 01:44: Mag-Ox [place] 00 400) Magnesium oxide 578xz=435j g elemental magnesium Dose=____m g magnesium oxide (___mg elemental magnesium) Calcium No Notes: Memoria Carbonate 10-01 (Same As: l 500 MG 01:44: Tums) [place] Chewable 00 Calcium Tablet Carbonate 500 mg = 200 mg elemental calcium Dose = mg calcium carbonate ( mg elemental calcium) potassium No Notes: Memori a phosphate + 10-01 (Same as: l Sodium 01:44: K [place] Chloride 00 Phosphate. 0.9% IV 250 ) 1 mMol mL phoshate has 1.47 mEq potassium Infuse over 4 hours Glucagon No 1 mg, Memoria 10-01 Route: IM, l 01:43: Drug form: [place] PDR/INJ, PRN, Dosing Weight 97.273, kg, PRN Blood Glucose Results, Start date: 09/30/15 19:43:00, Duration: 30 day, Stop date: 10/30/15 19:42:00 Insulin No 60 Memoria regular -06 units) l 01:43: Stable for [place] 00 28 days at room temperatur e Expires in days from ____Date Dextrose No 12.5 gm, Memor ia 50% Syringe 06 25 mL, l 01:43: Route: [place] 00 IVP, Drug Form: INJ, Dosing Weight 97.273, kg, PRN, PRN Blood Glucose Results, Start date: 09/30/15 19:43:00, Duration: 30 day, Stop date: 10/30/15 19:42:00 Isolyte S No Notes: Memori a PH 7.4 06 (Same as: l 1,000 mL 00:34: Isolyte S Herm napoleon PH 7.4) Fentanyl No 1,000 Memoria 1-06 microgram, l 00:34: 20 mL, [place] 00 Rate: Titrate, Start Dose: 50 microgram/ hr, Titration: 25 microgram/ hour every 15 minutes, Goal(s): RASS (0) to (-2), Max Dose: 300 microgram/ hr, Route: IV, Dosing Weight 97.273 kg, Total Volume: 20, Start date: 09/30/15 18:34:... Fentanyl No Notes: Memoria - Concentrat l 00:00: ion is 20 micrograms /ml Naloxone No Notes: Memoria 09-30 Same as l 23:40: Narcan Ondansetron No Notes: Adam whitney 0.8 MG/ML 09-30 (Same as: l Oral 23:40: Zofran) [place] Solution 00 [Zofran] Acetaminoph No Notes: Do M emoria en 325 MG / 09-30 not exceed l Hydrocodone 23:40: 4gm/day of [place] Bitartrate 00 acetaminop 10 MG Oral hen. Tablet (Same as: [place] 325/10) Fentanyl No Notes: Memoria - (Same as: l 23:40: Sublimaze) Preservat javi free. Acetaminoph No Notes: Do M emoria en -05 not exceed l 23:40: 4 gm/day. [place] 00 (Same as: Tylenol) protamine No Route: IV, Me moria (ANES) 09-30 Drug form: l 22:31: INJ, ONCE, Stop date: 09/30/15 16:31:00 DOPamine No Route: IV, Mem oria (ANES) 09-30 Drug form: l (ANES) 22:10: INJ, Start Danette date: 09/30/15 16:10:00, Stop date: 09/30/15 17:10:00 acetaminoph No Route: IV, Memoria en (ANES) 09-30 Drug form: l (ANES) 21:40: INJ, Start Danette nn 00 date: 09/30/15 15:40:00, Stop date: 09/30/15 16:40:00 Ancef No 1 gm, Memoria 1-05 Route: l 19:24: IVPB, [place] 00 ONCE, Dosing Weight 97.273, kg, Start date: 09/30/15 13:24:00, Duration: 1 doses or times, Stop date: 09/30/15 13:24:00, Surgical Prophylaxi s Only; For patients < 120 kg midazolam No Route: IV, Me moria (ANES) 1 Drug form: l 18:10: SOLN, [place] 00 ONCE, Stop date: 09/30/15 12:10:00 heparin No Route: IV, Adam whitney (ANES) 1 Drug form: l 18:00: INJ, ONCE, [place] Stop date: 09/30/15 12:00:00 niCARdipine No Route: IV, Memoria (ANES) + 09-30 Drug form: l sodium 18:00: INJ, ONCE, Danette nn chloride 00 Stop date: (ANES) 09/30/15 (ANES) 12:00:00 tranexamic No Route: IV, M emoria acid (ANES) 1-05 Drug form: l 17:25: INJ, ONCE, [place] Stop date: 09/30/15 11:25:00 ceFAZolin No Route: IV, Me moria (ANES) 1-05 Drug form: l 17:25: INJ, ONCE, [place] Stop date: 09/30/15 11:25:00 lidocaine No Route: IV, Me moria (ANES) 1-05 Drug form: l 17:05: INJ, ONCE, [place] Stop date: 09/30/15 11:05:00 propofol No Route: IV, Mem oria (ANES) 1-05 Drug form: l 16:55: INJ, ONCE, [place] Stop date: 09/30/15 10:55:00 rocuronium No Route: IV, M emoria (ANES) 1-05 Drug form: l 16:10: INJ, ONCE, [place] Stop date: 09/30/15 10:10:00 fentaNYL 2015- No Route: IV, Mem oria (ANES) 1-05 Drug form: l 16:05: INJ, ONCE, Stop date: 09/30/15 10:05:00 cefepime No Route: IV, Mem oria (ANES) 1-05 Drug form: l 16:00: INJ, ONCE, Stop date: 09/30/15 10:00:00 dexmedetomi No Route: IV, Memoria dine (ANES) 09-30 Drug form: l (ANES) 15:48: INJ, Start Danette date: 09/30/15 9:48:00, Stop date: 09/30/15 10:48:00 ropivacaine No Notes: Adam whitney 400 mL 1-05 Final l 15:47: concentrat ion: Ropivacain e 0.2% 400 ml ropivacaine No Notes: Adam whitney 400 mL 1-05 Final l 15:46: concentrat ion: Ropivacain e 0.2% 400 ml Ancef No 2 gm, Memoria -05 Route: l 15:26: IVPB, ONCE, Dosing Weight [...] Memoria 1-05 Take with l 15:00: food. [place] 00 PlasmaLyte No Route: IV, M jacob A PH-7.4 1-05 Total l (ANES) 14:20: Volume: [place] (ANES) 00 1,000, Start date: 09/30/15 8:20:00, Stop date: 09/30/15 9:20:00 Clonidine No Notes: Memori a Hydrochlori 1-05 (Same As: l de 0.1 MG 04:00: Catapres) Her contreras Oral Tablet 00 atorvastati No Notes: Adam whitney n 1-05 (Same As: l 03:00: Lipitor) [place] Magnesium No 2 gm, 50 Adam whitney Sulfate 1-05 mL, Route: l 01:19: IVPB, Drug [place] 00 form: INJ, PRN, Dosing Weight 97.273, [...] Oxide 1-05 (Same as: l :19: Mag-Ox [place] 00 400) Magnesium oxide 880um=713u g elemental magnesium Dose=____m g magnesium oxide [...] chloride 1-05 (Same as: l 01:19: KCL) [place] 00 Infuse over 2 hours. potassium No [...] / 1-05 (Same as: l Hydrocodone 01:19: [place] Danette nn Bitartrate 00 325/5) Do 5 MG Oral not exceed Tablet 4gm/day of acetaminop hen. Ondansetron No Notes: Adam whitney 1-05 (Same as: l 01:19: Zofran) [place] 00 MEDICATION WASTE Product Size: 4 mg Product Wasted: ___ mg Sodium No 250 mL, Memoria Chloride 1-04 250 ml/hr, l 0.154 22:49: Infuse [place] MEQ/ML 00 Over: 1 Injectable hr, Route: Solution IV, 250, Drug form: INJ, ONCE, Priority: Routine, Dosing Weight 97.818 kg, Start date: 09/29/15 16:49:00, Duration: 1 doses or times, Stop date: 09/29/15 16:49:00 Sodium 2015- No 250 mL, Memoria Chloride 1-04 Rate: On l 0.9% 21:28: call for [place] (titrate) 00 use with 250 mL blood product administra tion, Dosing Weight 110.4, kg, Route: IV, Total Volume: 250, Start Date: 09/29/15 15:28:00, Duration: 30 day, Stop date: 10/29/15 15:27:00, Replace Every: 24 hr Lyrica No Notes: Memoria 1- (Same as: l 21:28: Lyrica) Lyrica No Notes: Memoria 1-04 (Same as: l 12:00: Lyrica) Metformin 2014-09 Yes 500 mg = 1 Me moria hydrochlori 2-30 tab, PO, l de 500 MG 22:56: Before Maury n Oral Tablet 00 Dinner, # 30 tab, 0 Refill(s) Iohexol 2014-09 No Notes: Memoria 2- (same l 21:33: as:Omnipaq ue 350). atorvastati 2014-09 Yes 20 mg = 1 M emoria n 20 mg 2-28 tab, PO, l oral tablet 19:31: Bedtime, # [place] 00 30 tab, 2 Refill(s) Physical 2014-09 Yes See Memoria Therapy 11-23 Instructio l 18:43: ns, MISC, [place] 00 ONCALL, Evaluate and Treat _3__ times [...] l 1.33 MEQ/ML 13:35: PO, Drug He rmann Oral 00 form: LIQ, Solution ONCE, Dosing [...] a 2-27 (Same As: l 19:45: Demadex) [place] 24 HR 2014-09 No Notes: Memoria Nifedipine 2-27 (Same l 90 MG 15:00: as:Adalat [place] Extended 00 CC, Release Procardia Tablet XL) [...] 2-27 (Same as: l 10:11: Cozaar) [place] Bystolic 2014-09 No Notes: Memoria 2-27 (same as: l 10:10: Bystolic) [place] 00 24 HR 2014-09 No 90 mg, 1 Memoria Nifedipine 2-27 tab, l 90 MG 10:09: Route: PO, Maury n Extended 00 Drug form: Release ERTAB, Tablet Daily, Dosing Weight 110.4, kg, Priority: NOW, Start date: 09/21/15 4:09:00, Duration: 30 day, Stop date: 10/20/15 9:00:00 heparin 2014-09 No Notes: Memoria 2-27 porcine l 06:00: heparin [place] Aspirin 2014-09 No Notes: Memoria 2-27 Take with l 03:44: food. torsemide 2014-09 Yes 20 mg = 1 Mem oria 20 mg oral 2-27 tab, PO, l tablet 03:07: Daily, # [place] 00 30 tab, 1 Refill(s) nebivolol 2014-09 Yes 20 mg = 2 Mem oria 10 MG Oral 2-27 tab, PO, l Tablet 03:07: Daily, # [place] [Bystolic] 00 60 tab, 0 Refill(s) 24 HR 2014-09 Yes 90 mg = 1 Memoria Nifedipine 2-27 tab, PO, l 90 MG 03:07: Daily, # [place] Extended 00 30 tab, 0 Release Refill(s) [...] n 2-27 (Same As: l 03:00: Lipitor) [place] 00 Clonidine 2014-09 Yes 0.1 mg = [...] tab, PO, l tablet 18:12: Daily, # [place] 00 30 tab, 0 Refill(s) Saline 2014-09 No Notes: Memoria Flush 0.9% 2- (Same as: l 15:00: BD [place] 00 Posiflush) Docusate 2014-09 No Notes: Memoria 2-26 (Same as: l 15:00: Colace) [place] 00 (Do Not Crush) sennosides, 2014-09 No Notes: Adma whitney ALF 2-26 (Same as: l 15:00: Senokot) [place] 00 potassium 2014-09 No Notes: Memori a chloride [...] a 2-26 Route: IV, l 03:53: ONCE, Dosing Weight 100, kg, For Stroke Infusion, Start date: 09/19/15 21:53:00, Stop date: 09/19/15 21:53:00 Regular 2014-09 No 60 Memoria Insulin, 2-26 units) l Human 100 03:52: Stable for He rmann UNT/ML 00 28 days at Injectable room Solution temperatur e Expires in days from ____Date Dextrose 2014-09 No 6.25 gm, Memor ia 50% Syringe 2-26 12.5 mL, l 03:52: Route: [place] 00 IVP, Drug Form: INJ, Dosing Weight 100, kg, PRN, PRN Abnormal Lab Result, Start date: 09/19/15 21:52:00, Duration: 30 day, Stop date: 10/19/15 21:51:00 Saline 2014-09 No Notes: Memoria Flush 0.9% 2-26 (Same as: l 03:50: BD [place] 00 Posiflush) Acetaminoph 2014-09 No Notes: Do M emoria en 11-21 not exceed l 03:50: 4 gm/day. [place] 00 (Same as: Tylenol) Ondansetron 2014-09 No Notes: Adam whitney - (Same as: l 03:50: Zofran) MEDICATION WASTE Product Size: 4 mg Product Wasted: __0_ mg Nicardipine 2014-09 No Notes: Adam whitney - Same as: l 03:50: Cardene Concentrat ion: (0.2 mg /1 ml ) Labetalol 2014-09 No 105 mmHg, Me moria 11-21 Priority: l 03:50: Routine, [place] 00 Start date: 09/19/15 21:50:00, Duration: 30 day, Stop date: 10/19/15 21:49:00 Bisacodyl 2014-09 No Notes: Memori a 2- (Same As: l 03:50: Dulcolax, Bisco-Lax) Sodium 2014-09 No 1,000 mL, Memori a Chloride 11-21 Rate: 50 l 0.154 03:50: ml/hr, MEQ/ML 00 Infuse Injectable over: 20 Solution hr, Route: IV, Dosing Weight 100 kg, Total Volume: 1,000, Start date: 09/19/15 21:50:00, Duration: 30 day, Stop date: 10/19/15 21:49:00 Saline 2014-09 No Notes: [facility] Flush 0.9% - Same as: l 02:57: BD Posiflush Sterile Vital Signs Vital Name Observation Time Observation Value Comments Source Systolic blood 2020-07-07 08:35:00 154 mm[Hg] Efrem n Confucianist pressure Diastolic blood 2020-07-07 08:35:00 87 mm[Hg] Becky on Confucianist pressure Heart rate 2020-07-07 08:35:00 73 /min Musa Blandon Respiratory rate 2020-07-07 08:35:00 21 /min Jarod perez Confucianist Oxygen saturation in 2020-07-07 08:35:00 95 /min Musa Blandon Arterial blood by Pulse oximetry Body height 2020-07-07 06:18:00 185.4 cm Musa Blandon Body weight 2020-07-07 06:18:00 86.637 kg [place] Confucianist BMI 2020-07-07 06:18:00 25.20 kg/m2 [place] Confucianist Body temperature 2020-07-07 05:56:00 36.06 Stella Hous ton Confucianist Heart Rate 2017-02-18 13:49:00 [facility] [place] Height 2017-02-18 13:49:00 179.58 cm [facility] [place] BMI Calculated 2017-02-18 13:49:00 Memori al [place] Weight 2017-02-18 13:49:00 [facility] [place] Systolic (mm Hg) 2017-02-18 13:49:00 Adam rial [place] Diastolic (mm Hg) 2017-02-18 13:49:00 Mem orial [place] Temperature Oral (F) 2016-02-20 15:06:00 98.1 F [facility] [place] BMI Calculated 2016-02-20 15:06:00 [facility] al [place] Weight 2016-02-20 15:06:00 [facility] [place] Height 2016-02-20 15:06:00 185.42 cm [facility] [place] Systolic (mm Hg) 2016-02-20 15:06:00 Adam rial [place] Diastolic (mm Hg) 2016-02-20 15:06:00 Mem o[facility] [place] Respitory Rate 2016-02-20 15:06:00 [facility]ori al [place] Heart Rate 2016-02-20 15:06:00 [facility] [place] Height 2016-01-29 19:21:00 185.42 cm [facility] [place] Weight 2016-01-29 19:21:00 [facility] [place] BMI Calculated 2016-01-29 19:21:00 [facility] [place] Systolic (mm Hg) 2016-01-29 19:21:00 Adam rial [place] Diastolic (mm Hg) 2016-01-29 19:21:00 Mem orial [place] Temperature Oral (F) 2016-01-29 19:21:00 97.6 F [facility] [place] Respitory Rate 2016-01-29 19:21:00 Memori al [place] Heart Rate 2016-01-29 19:21:00 [facility] [place] Respitory Rate 2016-01-02 16:30:00 [facility] al [place] Systolic (mm Hg) 2016-01-02 16:30:00 Adam rial [place] Diastolic (mm Hg) 2016-01-02 16:30:00 Mem orial [place] Respitory Rate 2016-01-02 16:15:00 [facility] al [place] Systolic (mm Hg) 2016-01-02 16:15:00 Adam rial [place] Diastolic (mm Hg) 2016-01-02 16:15:00 Mem orial [place] Respitory Rate 2016-01-02 16:00:00 Memori al [place] Systolic (mm Hg) 2016-01-02 16:00:00 Adam rial [place] Diastolic (mm Hg) 2016-01-02 16:00:00 Mem orial [place] BMI Calculated 2016-01-02 15:33:00 [facility] al [place] Weight 2016-01-02 15:33:00 [facility] [place] Height 2016-01-02 15:33:00 177.8 cm [facility] [place] Temperature Oral (F) 2016-01-02 14:00:00 98.6 F [facility] [place] Weight 2015-11-14 21:05:00 [facility] [place] BMI Calculated 2015-11-14 21:05:00 [facility] al [place] Height 2015-11-14 21:05:00 185.42 cm [facility] [place] Respitory Rate 2015-11-14 21:05:00 [facility] al [place] Heart Rate 2015-11-14 21:05:00 [facility] [place] Temperature Oral (F) 2015-11-14 21:05:00 97.6 F [facility] [place] Systolic (mm Hg) 2015-11-14 21:05:00 Adam rial [place] Diastolic (mm Hg) 2015-11-14 21:05:00 Mem orial [place] BMI Calculated 2015-10-29 19:35:00 [facility] al [place] Weight 2015-10-29 19:35:00 [facility] [place] Systolic (mm Hg) 2015-10-29 19:35:00 Adam rial [place] Diastolic (mm Hg) 2015-10-29 19:35:00 Mem orial [place] Heart Rate 2015-10-29 19:35:00 [facility] [place] Respitory Rate 2015-10-29 19:35:00 Memori al [place] Temperature Oral (F) 2015-10-29 19:35:00 97.0 F [facility] [place] Height 2015-10-29 19:35:00 185.4 cm [facility] [place] Temperature Oral (F) 2015-10-29 17:39:00 97.0 F [facility] [place] Respitory Rate 2015-10-29 17:39:00 Memori al [place] Heart Rate 2015-10-29 17:39:00 [facility] [place] Systolic (mm Hg) 2015-10-29 17:39:00 Adam rial [place] Diastolic (mm Hg) 2015-10-29 17:39:00 Mem orial [place] BMI Calculated 2015-10-29 17:39:00 [facility] al [place] Weight 2015-10-29 17:39:00 [facility] [place] Height 2015-10-29 17:39:00 185.4 cm [facility] [place] Weight 2015-10-22 23:03:00 [facility] [place] BMI Calculated 2015-10-22 23:03:00 Memori al [place] Height 2015-10-22 23:03:00 185.42 cm [facility] [place] Systolic (mm Hg) 2015-10-22 23:03:00 Adam rial [place] Diastolic (mm Hg) 2015-10-22 23:03:00 Mem orial [place] Heart Rate 2015-10-22 23:03:00 [facility] [place] Temperature Oral (F) 2015-10-22 23:03:00 97.6 F [facility] [place] Respitory Rate 2015-10-22 23:03:00 Memori al [place] Systolic (mm Hg) 2015-10-20 20:40:00 Adam rial [place] Diastolic (mm Hg) 2015-10-20 20:40:00 Mem orial [place] Respitory Rate 2015-10-20 20:40:00 Memori al [place] Respitory Rate 2015-10-20 18:00:00 Memori al [place] Systolic (mm Hg) 2015-10-20 18:00:00 Adam rial [place] Diastolic (mm Hg) 2015-10-20 18:00:00 Mem orial [place] Systolic (mm Hg) 2015-10-20 16:00:00 Adam rial [place] Diastolic (mm Hg) 2015-10-20 16:00:00 Mem orial [place] Respitory Rate 2015-10-20 16:00:00 Memori al [place] Temperature Oral (F) 2015-10-20 10:00:00 98.6 F [facility] [place] Temperature Oral (F) 2015-10-20 06:00:00 97.9 F [facility] [place] Temperature Oral (F) 2015-10-20 02:08:00 98.7 F [facility] [place] Weight 2015-10-09 10:58:00 [facility] [place] Heart Rate 2015-10-02 04:00:00 [facility] [place] Heart Rate 2015-10-02 03:45:00 [facility] [place] Heart Rate 2015-10-02 03:30:00 [facility] [place] Systolic (mm Hg) 2015-09-29 23:22:00 Adam rial [place] Diastolic (mm Hg) 2015-09-29 23:22:00 Mem orial [place] Height 2015-09-29 23:22:00 185.42 cm [facility] [place] BMI Calculated 2015-09-29 23:22:00 Mem[facility] al [place] Weight 2015-09-29 23:22:00 [facility] [place] Temperature Oral (F) 2015-09-29 23:22:00 98.7 F [facility] [place] Heart Rate 2015-09-29 23:22:00 [facility] [place] BMI Calculated 2015-09-29 22:40:00 Memori al [place] Weight 2015-09-29 22:40:00 [facility] [place] Height 2015-09-29 22:40:00 185.42 cm [facility] [place] Systolic (mm Hg) 2015-09-22 23:50:00 Adam rial [place] Diastolic (mm Hg) 2015-09-22 23:50:00 Mem orial [place] Heart Rate 2015-09-22 23:50:00 [facility] [place] Respitory Rate 2015-09-22 23:50:00 Memori al [place] Heart Rate 2015-09-22 18:20:00 [facility] [place] Systolic (mm Hg) 2015-09-22 18:20:00 Adam rial [place] Diastolic (mm Hg) 2015-09-22 18:20:00 Mem orial [place] Respitory Rate 2015-09-22 18:20:00 Memori al [place] Systolic (mm Hg) 2015-09-22 17:20:00 Adam rial [place] Diastolic (mm Hg) 2015-09-22 17:20:00 Mem orial [place] Respitory Rate 2015-09-22 14:00:00 Memori al [place] Heart Rate 2015-09-20 09:54:00 [facility] [place] Weight 2015-09-20 05:44:00 [facility] [place] BMI Calculated 2015-09-20 05:44:00 Gopal dwyer [place] Height 2015-09-20 05:44:00 185.42 cm [facility] Temperature Oral (F) 2015-09-20 03:24:00 96.7 F [facility] Weight 2015-09-20 02:45:00 [facility] BMI Calculated 2015-09-20 02:45:00 Gopal dwyer [place] Height 2015-09-20 02:45:00 185.42 cm [facility] Procedures Procedure Date / Time Performed Performing Clinician Sourc e ECG 12-LEAD 2020-07-07 08:09:46 Osbaldo Casey odist EP CARDIOVERSION 2020-07-07 08:05:20 Osbaldo Casey ESTIMATED GFR 2020-07-07 06:39:00 Osbaldo Casey odist POC PANEL 2020-07-07 06:39:00 Osbaldo Casey odist ECG PRE/POST OP 2020-07-07 05:49:19 Osbaldo Casey odletitia MAGNESIUM LEVEL 2020-07-03 10:59:00 JacintoOsbaldo odist PROTHROMBIN TIME WITH INR 2020-07-03 10:59:00 Osbaldo Casey HC COMPLETE BLD COUNT 2020-07-03 10:59:00 Osbaldo Casey W/AUTO DIFF COMPREHENSIVE METABOLIC 2020-07-03 10:59:00 Osbaldo Casey Confucianist PANEL ESTIMATED GFR 2020-07-03 10:59:00 Osbaldo Casey COVID-19 QUALITATIVE PCR 2020-07-03 10:50:00 Osbaldo Casey CV CTA CORONARY PRE AFIB 2020 10:53:54 Osbaldo Casey PULMONARY VEIN MAPPING POC CREATININE 2020 10:09:00 Osbaldo Casey odist ESTIMATED GFR 2020 10:09:00 Osbaldo Casey odist Lithotripsy 1990-09-26 00:00:00 [facility] contreras Fusion of joint of 1977-09-26 06:00:00 [facility] cervical spine with internal fixation by anterior approach Kidney - local excision 1952-09-26 00:00:00 Adam Tompkins Operation<sup>1</sup> [facility] Issa smith Plan of Care Planned Activity Planned Date Details Comments Source Future Scheduled 2006 65+ PNEUMOCOCCAL [place] Confucianist Test 00:00:00 VACCINE (1 of 1 - PPSV23) [code = 65+ PNEUMOCOCCAL VACCINE (1 of 1 - PPSV23)] Future Scheduled 1991 SHINGLES VACCINES (#1) [facility] Confucianist Test 00:00:00 [code = SHINGLES VACCINES (#1)] Future Scheduled 1959 Hepatitis C screening [facility] Confucianist Test 00:00:00 (procedure) [code = 187782949] Future Scheduled 1957 COVID-19 VACCINE (1 of H [facility] Confucianist Test 00:00:00 2) [code = COVID-19 VACCINE (1 of 2)] Encounters Start End Encounter Admission Attending Care Care Encounter Source Date/Time Date/Time Type Type Clinicians Facility Department ID 2020-07-07 2020-07-07 Outpatient JACINTO, [facility] [id number] [place] 00:00:00 00:00:00 NADIM 214 Method i 2020-07-03 2020-07-03 [facility] [id number] [place] 00:00:00 00:00:00 NADIM 649 Method i 2020 2020 Outpatient JACINTO, [facility] [id number] [place] 00:00:00 00:00:00 NADIM [address] 2017-02-18 2017-02-18 [facility] [id number] 08:33:00 23:59:00 Stewart 07 2016-12-21 2016-12-22 [address] [id number] 13:40:00 23:59:59 04 2016-10-22 2016-10-23 Outpatient 91 [id number] 15:28:00 23:59:59 03 2016-04-14 2016-04-15 Outpatient 91 [id number] 16:10:00 23:59:59 02 2016-02-24 2016-02-25 [address] [id number] 09:02:00 23:59:59 2016-02-20 2016-02-20 Outpatient YUSEF Kim [facility] [id number] 09:26:00 23:59:00 Stewart 48 2016-01-29 2016-01-29 Outpatient Isamar [facility] [id number] 12:31:00 23:59:00 Soma 03 [place] 2016-01-13 2016-01-14 Outpatient KOKO91 [id number] 17:19:00 23:59:59 00 2016-01-02 2016-01-02 Outpatient Fernando [facility] [id number] 08:30:00 12:08:00 Carson 05 Mandeep 2015-11-14 2015-11-14 Outpatient Fernando [facility] [id number] 12:50:00 23:59:00 [place] 00 Mandeep 2015-11-14 2015-11-14 Outpatient Fernando [facility] [id number] 10:37:00 23:59:00 Carson 50 Mandeep 2015-10-29 2015-10-29 Outpatient Isamar [facility] [id number] 11:05:00 23:59:00 Soma darin 2015-10-22 2015-10-22 Outpatient Julio [facility] [id number] 15:57:00 23:59:00 Stewart 00 2015-09-29 2015-10-20 Outpatient Fernando [facility] [id number] 16:10:00 16:40:00 Carson 04 Mandeep 2015-09-29 2015-09-29 Outpatient Fernando [facility] [id number] 15:46:00 23:59:00 [place] 00 Mandeep 2015-09-19 2015-09-22 Outpatient Thanh [facility] [id number] 20:47:00 18:09:00 Mario Mac Results Test Description Test Test Results Result Source Time Comments Comments Electrophysiology Osbaldo Casey Jr., MD [place] procedure 16 Physician Confucianist 14:35:47 Electrophysiology Brief Op Note Signed Date of Service: 07/07/2020 7:49 AM Procedure: EP CARDIOVERSION Case Time: 07/07/2020 7:49 AM Surgeon: Osbaldo Casey Jr., MD Signed []Hide copied text []Hover for details Cardioversion Operative Note Donell Valle Jr., [id number] y.o. male 07/07/2020; [facility] WT CATH AOD PROC RM 1 Procedure(s):EP [...] Time: 8:10 AM Osbaldo Casey Jr., MD [facility] Project Systems Engineer Electrophysiology [facility]The [facility] V[facility] HoosickElected [place] Chair, Department of CardiologyOffnatchaug hospital [phone] ECG 12 lead 2020-07-07 10:15:40 Test Item Value Reference Range Interpretation Comme nts Ventricular rate (test code = 253) 61 Atrial rate (test code = 255) 61 NC interval (test code = 266) 250 QRSD [...] with premature atrial complexes-Otherwise normal ECG- [facility]Formerly [facility] Pre/Post [id number] 07:56:12 Test Item Value Reference Range Interpretation Comments Ventricular rate (test 63 code = 253) Atrial rate (test code = 66 255) QRSD interval (test code 98 = 260) QT interval (test code = 450 264) QTC interval (test code = 460 265) QRS axis 1 (test code = 32 268) T wave axis (test code = 86 270) EKG impression (test code Atrial = 273) fibrillation-Electro nically Signed By Anton Casey MD ([id number]) on 07/07/2020 7:56:05 AM Musa [facility] [id number] 06:57:06 Test Item Value Reference Range Interpretation Comments POC sodium (test code 140 mmol/L 135-148 = 2947-0) POC potassium (test 4.4 mmol/L 3.5-5 code = 6298-4) POC chloride (test 104 mmol/L 99-109 code = 2069-3) POC CO2 (test code = 24 mmol/L 24-31 46907-5) POC glucose (test code 121 mg/dL 65-99 H = 2339-0) POC BUN (test code = 27 mg/dL 8-24 H 6299-2) POC creatinine (test 1.0 mg/dl 0.7-1.2 code = 80340-4) POC hematocrit (test 46 % 41-51 code = 4544-3) POC anion gap (test 18 mmol/L 8-20 Tube Bender Name: code = 5609002) Noy MoralesaDe I D: [id number] Lab Interpretation Abnormal (test code = 59502-9) uMsa BlandonEstimated [id number] 06:57:06 Test Item Value Reference Range Interpretation Comments Estimated GFR (test 71 mL/min/1.73 m2 Caterg ory Units code = 67405-5) Interpretati onG1 >=90 Normal or highG2 60-89 Mildly retwpdlohC9g 45-59 Mildly to mode rately qbtdbdtoaK4k 30-44 Moderately to severely decreasedG4 15-29 Severely decre asedG5 <15 Kidn ey failureThe eGFR was calculated laverne g the Chronic Kidney Disease Epidemiology Co llaboration (CKD-EPI) equat ion. Interpretation is based on recommendations of the National Kidney Foundation-Kidn ey Disease Outcomes Qualit y Initiative (NKF-KDOQI) pub lished in 2014. Musa ConfucianistCOVID-19 qualitative [id number] 16:10:16 Test Item Value Reference Range Interpretation Comments Interpretation (test Negative results do code = 3009685) not preclude 2019-nCoV infection and should not be used as the sole basis for treatment or other patient management decisions. Negative results must be combined with clinical observations, patient history, and epidemiological information. COVID-19 qualitative Not-Detected Not-Detected PCR result (test code = 94933-1) COVID-19 qualitative See link below for C ase Number: PCR (test code = PDF Lab Report [id number]) [place] [facility]bComprehensive metabolic [id number] 12:04:11 Test Item Value Reference Range Interpretation Comments Sodium (test code = 138 See_Comment [Automa margo message] 2951-2) The system [email or web address] generated this result transmit margo reference range : 135 - 148 mEq/L. Th e reference range was not used to interpret this result as normal/abnormal . Potassium (test code = 5.5 See_Comment H [Aut omated message] 4713-3) The system [email or web address] generated this result transmit margo reference range : 3.5 - 5.0 mEq/L. Th e reference range was not used to interpret this result as normal/abnormal . Chloride (test code = 100 See_Comment [Auto mated message] 0) The system [email or web address] generated this result transmit margo reference range : 98 - 112 mEq/L. Th e reference range was not used to interpret this result as normal/abnormal . CO2 (test code = 27 See_Comment [Automated message] 2028-05) The system [email or web address] generated this result transmit margo reference range : 24 - 31 mEq/L. The reference range was not used to interpret this result as normal/abnormal . Anion gap (test code = 11@ANIO See_Comment [Aut omated message] 99560-2) The system [email or web address] generated this result transmit margo reference range : 7 - 15 mEq/L. The reference range was not used to interpret this result as normal/abnormal . BUN (test code = 25 mg/dL 8-23 H 3094-0) Creatinine (test code = 1.20 mg/dL 0.7-1.2 2160-0) Glucose (test code = 106 mg/dL 65-99 H 2345-7) Calcium (test code = 10.1 mg/dL 8.8-10.2 80168-1) Protein (test code = 8.0 g/dL 6.3-8.3 -[place] n 2885-2) 4.6-7.0 g/ dL1 week 4.4-7.6 g/dL7 months-1year 5.1-7.3 g/dL1 -2 years 5.6-7.5 g/dL>3 years 6.0-8.0 g/dL18- 150 6.3-8.3 g/dL Albumin (test code = 3.5 g/dL 3.5-5 1751-7) A/G ratio (test code = 0.8 0.7-3.8 1759-0) Alkaline phosphatase 129 U/L 40-129 (test code = 6768-6) AST (test code = 28 U/L 192-8) ALT (test code = 39 U/L 50 174-6) Total bilirubin (test 0.7 mg/dL 0-1.2 code = 1974-2) Lab Interpretation Abnormal (test code = 23652-6) [place] MethodistMagnesium [id number] 12:04:10 Test Item Value Reference Range Interpretation Comments Magnesium (test code = 74103-0) 2.1 mg/dL 1.6-2.4 [place] MethodistProthrombin time with [id number] 11:38:39 Test Item Value Reference Range Interpretation Comments Prothrombin time (test 15.4 See_Comment H [Aut omated message] code = 5902-2) The system [employer] generated this result transmitted ref erence range: 11.5 - 1 4.5 sec. The refere nce range was not u sed to interpret this result as normal/abnor mal. INR (test code = 1.2 The Interna tional 64097-5) Normalized Rati o (INR) is a therapeuti c monitoring tool for patients who ar e stable on oral anticoagulant t herapy. An INR of 2.0-3 .0 is suggested for d eep vein thrombosis/pulm onary embolism. Lab Interpretation Abnormal (test code = 45396-2) [place] MethodistCBC with platelet and [id number] 11:27:00 Test Item Value Reference Range Interpretation Comments WBC (test code = 7.81 See_Comment [Automated message] 57244-3) The system [email or web address] generated this result transmit margo reference range : 4.50 - 11.00 k/ uL. The reference r annika was not used to interpret this result as normal/abnormal . RBC (test code = 4.76 m/uL 4.4-6 10009-5) HGB (test code = 718-7) 14.0 g/dL 14-18 HCT (test code = 4544-3) 44.2 % 41-51 MCV (test code = 787-2) 92.9 fL 82-100 MCH (test code = 785-6) 29.4 pg 27-34 MCHC (test code = 786-4) 31.7 g/dL 31-37 RDW - SD (test code = 49.1 fL 37-55 36053-5) MPV (test code = 9.2 fL 8.8-13.2 08783-7) Platelet count (test 305 See_Comment [Autom ated message] code = 53021-1) The [facility] generated this result transmit amrgo reference range : 150 - 400 k/uL. The reference range was not used to interpret this result as normal/abnormal . Nucleated RBC (test code 0.00 See_Comment [A utomated message] = 37164-1) The system whic h generated this result transmit margo reference range : /100 WBC. The reference range was not used to interpret this result as normal/abnormal . Neutrophils (test code = 75.8 % 39-69 H 20107-3) Lymphocytes (test code = 11.1 % 25-45 L 50471-5) Monocytes (test code = 9.6 % 0-10 39085-4) Eosinophils (test code = 2.3 % 0-5 34917-5) Basophils (test code = 0.8 % 0-1 39547-4) Immature granulocytes 0.4 % 0-1 "Immat ure (test code = 40482-2) granul ocytes" (promyelocytes, myelocytes, metamyelocytes) Lab Interpretation (test Abnormal code = 19666-5) [place] MethodistCHEM [id number] 10:59:002.4[facility] HermannELECTROLYTES 2015-10-20 10:59:0010.4[facility] [id number] 10:59:0057[facility] OzioeefIQPPHLJWRAQQ3886-35-83 10:59:0034[facility] PihxtvvLLTUAMBKFURL6625-48-39 10:59:0098[facility] VnjlikuIWBJBHSWKFYE7182-89-43 10:59:003.4[facility] [place] [id number] 10:59:49139Rkxgendo QdygxtpKOUBIZZEWEVV0318-34-43 10:59:001.24[facility] [id number] 10:59:0033[facility] [id number] 10:59:15975Mlkhrave UxfudkeWWDRPWSXRFNU0974-50-88 10:59:008.7[facility] WilcbiuVFNQMCHHFR0427-67-52 10:59:0014.3[facility] ZYGWNBIYBV7252-13-90 10:59:0073.3[facility] QewozsoXEMTPAEBCZ3324-15-61 10:59:00 1.8[facility] IcvwdtuPZWLOFOTKB0919-21-21 10:59:002.6[facility]annHEMATOLOGY 2015-10-20 10:59:008.9[facility] UbfcqaxOSATCSSUVK5556-12-40 10:59:009.2[facility] ChpomnfVPJVPUPUXV9388-93-48 10:59:000.9[facility] EthldlhHZAALXIFVW8963-01-90 10:59:001.1[facility] DuidefzMWBYJACRPL5831-25-01 10:59:000.1[facility] ODEROKGCFO9092-79-19 10:59:000.3[facility] ZpviwagPSXKFELSRA3946-59-05 10:59:01669 [facility] CyizxuaIVVGGZLUQS1886-78-97 10:59:008.1[facility] HermannHEMATOLOGY 2015-10-20 10:59:0017.4[facility] QamycooNRXDSDXUUM3159-80-56 10:59:003.15[facility] DcqzjhdTQKJFDVXTX0970-63-43 10:59:0012.5[facility] YhlcmlkPQZPXYATLX9256-52-23 10:59:0093.0[facility] TezronoIUUGEENJPJ0060-25-82 10:59:00 Test Item Value Reference Range Interpretation Comments MCH (test code = MCH) 30.4 pg 27.0-31.0 [facility] IhiiooiSFVAALPTWC6583-43-30 10:59:009.6[facility] HermannHEMATOLOGY 2015-10-20 10:59:0029.3[facility] YxzwmdpLMHEZDOVSA0388-08-29 10:59:0032.7[facility] HermannCHEM UKACM2159-41-66 20:42:004.0[facility]annCHEM YUKFY8384-64-16 20:42:002.4[facility]annCHEM HUHES8370-62-73 20:42:0042[facility]annCHEM EKEAM2921-69-99 20:42:0032[facility]annCHEM NMJVJ2814-67-53 20:42:0012.6 [facility]annCHEM SOMTU0453-31-59 20:42:008.3[facility]annCHEM PANEL 2015-10-19 20:42:0096[facility]annCHEM RODXW9143-09-48 20:42:0028[facility]annCHEM HUTPU4013-42-72 20:42:36188Atuunzqh HermannCHEM WZIQZ6953-25-03 20:42:003.6[facility]annCHEM CMQTQ5310-21-75 20:42:74265Jrzpxkdo HermannCHEM RWHVQ1164-91-71 20:42:001.58[facility]annCHEM OZKFM4487-97-79 11:00:002.5 [facility] ClcivntHPCRDUVNFVGC5140-38-05 11:00:0012.5[facility] HermannELECTROLYTES 2015-10-19 11:00:0059[facility] BkawisvKJDOXCAUSVFC6437-62-25 11:00:0023[facility] EeayqlnEUBEZTLGEHTQ3670-33-96 11:00:42364Iylssqos QoeahrdKDXTQGUEAZXX0345-37-64 11:00:98553Ykksghrk FashjsqQEGNHCIQMQTB1040-47-54 11:00:0099[facility] FMTIOGEYNLIG8495-92-15 11:00:003.5[facility] JywenfiYLHPPJVKNWFE6716-22-90 11:00:001.20[facility] PotumayPKUFNUXGNUZJ8240-89-59 11:00:008.6[facility] XOLNVEFNLTTV2517-08-51 11:00:0032[facility] MnbsuglLWGTERXHUD1936-30-87 11:00:00 16.7[facility] IlpggfsUGSROOGWHC3877-29-10 11:00:0032.7[facility]annHEMATOLOGY 2015-10-19 11:00:00 Test Item Value Reference Range Interpretation Comments MCH (test code = MCH) 30.4 pg 27.0-31.0 [facility] QiorcgtSIXYHZLHWP5623-22-32 11:00:0092.8[facility] HermannHEMATOLOGY 2015-10-19 11:00:0031.3[facility] DkyedqcKBQWFVXPQN5545-32-77 11:00:0012.7[facility] QzgmehyWONBHRYUMM6567-14-28 11:00:003.38[facility] FwmmqtgRITWTCNDKM4563-15-14 11:00:007.4[facility] DasyscuPNHHXIFRCI1643-98-92 11:00:76242[place]je [place] TBVKOESYGE3106-40-42 11:00:0010.3[facility] EfdscrvKBMUPIKTUQ5396-86-76 11:00:00 0.1[facility] ZmwicexOJGBMLRRXJ7984-24-71 11:00:000.4[facility]annHEMATOLOGY 2015-10-19 11:00:001.2[facility] BhcbuonUTATONNWNY2869-77-55 11:00:001.8[facility] EbpzzomADWLWSJFSP1672-63-58 11:00:009.2[facility] MmvxmxtYKGUNGUFRG1069-49-38 11:00:009.4[facility] IlfnemwSWBDGEEBML3873-84-78 11:00:0013.9[facility] XNORCCTNPP6977-17-48 11:00:0072.8[facility] XwezdopOVISQPJTON0096-34-55 11:00:00 3.0[facility] XhviwqsVLALKTAFOA6131-91-98 11:00:000.9[facility] HermannCHEM PANEL 2015-10-18 18:18:002.8[facility] VafydgwSUVIXNKSTU7008-69-95 09:00:000.2[facility] LfzmavsJMPBICJJCL9805-87-00 09:00:0072.0[facility] FnywoojYZFKJVKLAP2569-92-15 09:00:009.1[facility] JvrkpdlRJYAOGBDMF2130-72-53 09:00:003.0[facility] TIDPZJVMZA9620-11-69 09:00:0014.5[facility] OsqlalyJQPCLBSNXJ4358-66-70 09:00:00 1.6[facility] PppxowuHWFFGEBSBY6961-35-76 09:00:000.3[facility]annHEMATOLOGY 2015-10-18 09:00:008.0[facility] DynomruBLUOGXPHVZ4012-76-31 09:00:001.0[facility] CgythneYIIBZKMYFB6397-43-07 09:00:001.4[facility] EjkvlnuKIOZHICRKY7645-47-41 09:00:007.8[facility] TzdvncuCKDTCBQLHB3131-62-46 09:00:0016.1[facility] ZSVXCOSKQG0142-32-14 09:00:92409Snwfglox MvthgavXJVZADGYLM8399-81-02 09:00:00 3.09[facility] WocnnlcXAULUIDMUZ6854-91-37 09:00:0011.1[facility]annHEMATOLOGY 2015-10-18 09:00:0032.6[facility] OfehqokIDMTOKKUGZ7057-61-36 09:00:0092.1[facility] VxuziejFYEEIEXINT4473-96-03 09:00:00 Test Item Value Reference Range Interpretation Comments MCH (test code = MCH) 30.0 pg 27.0-31.0 [facility] PobncreDMNVQLYNWV2641-91-66 09:00:009.3[facility] HermannHEMATOLOGY 2015-10-18 09:00:0028.5[facility] HermannCHEM ZIWWY6943-23-58 15:30:002.2[facility] HermannCHEM AOZZX3403-59-43 11:38:001.5[facility]annCHEM ZEWQI4025-33-50 11:38:0029[facility]annCHEM NNTYD9205-99-75 11:38:002.2[facility]annCHEM UHFZC2014-15-18 11:38:005.6[facility]annCHEM XKXVY0085-71-43 11:38:0056 [facility]annCHEM LCIQI1788-09-14 11:38:001.1[facility] HermannCHEM PANEL 2015-10-14 11:38:33636Aoanrjfz HermannCHEM MEFVQ4405-83-54 11:38:000.3[facility]annCHEM YVQKR5538-23-38 11:38:000.8[facility]annCHEM BGLMO4767-72-85 11:38:000.6[facility]annCHEM GVHDL4998-31-84 11:38:003.4[facility]annURINE AND SPFZV9038-28-25 06:34:002[facility] URIQZ5305-18-98 06:34:001 [facility] JHXAK3444-57-29 06:34:00Negative (10/14/15 12:34 AM) [facility] JXSLF1508-13-63 06:34:00Negative (10/14/15 12:34 AM) [facility] IAZIM8662-90-88 06:34:00Trace *ABN*(10/14/15 12:34 AM) [facility] JKBHX3380-95-56 06:34:007[facility] NLXJW7285-72-18 06:34:001.007[facility] QHBKA3959-82-97 06:34:00 Clear (10/14/15 12:34 AM)[facility] FXVXN6290-43-46 06:34:00Yellow *NA*(10/14/15 12:34 AM)[facility] ODNQW3062-90-80 06:34:005.5 [facility] GWYEV7646-07-61 06:34:00Negative *NA*(10/14/15 12:34 AM)[facility] HermannANEMIA KXOAH5154-46-16 19:02:23894Enwoickd HermannANEMIA TJDHO0698-09-58 19:02:0011[facility] HermannANEMIA KDKLT4943-85-50 19:02:58155 [facility]annANEMIA XFAVY8250-86-90 19:02:0024[facility]annANEMIA STUDY 2015-10-13 19:02:56526Qicpnvqa HermannCHEM MPUWX1116-66-55 19:02:002.9[facility] FbadfxaNTFQTDJINQ7781-26-87 19:02:0018[facility] SgfcwbnUXQWTKYITT7180-71-25 19:02:0013.3[facility] HermannCHEM BGORG6172-38-54 10:12:0089[facility]annCHEM QFGVH0987-73-30 10:12:002.3[facility] HermannCHEM TKIEN9212-29-80 10:12:005.7 [facility]annCHEM AMWAJ4047-38-66 10:12:58943Fgyxomuj HermannCHEM PANEL 2015-10-11 10:12:0035[facility] HermannCHEM IBQDU9858-48-48 10:12:000.3[facility] HermannCHEM ECPPW7419-43-77 10:12:001.0[facility]annCHEM EWSME3487-99-47 10:12:000.7[facility] HermannCHEM RASXM6372-77-15 10:12:003.4[facility]annCHEM XFNHY9665-44-95 10:12:000.7[facility]annCHEM QFMXK7961-54-51 07:18:000.7 [facility]annCHEM PSGAF2273-07-89 07:18:003.4[facility] HermannCHEM PANEL 2015-10-10 07:18:000.5[facility] HermannCHEM SLJKS9040-80-37 07:18:0035[facility]annCHEM ATCBH8954-99-16 07:18:75979Avlfmrex HermannCHEM HKMMA6289-40-06 07:18:001.0[facility] HermannCHEM RJQUY8667-05-36 07:18:002.5[facility]annCHEM HVNGW9724-55-43 07:18:005.9[facility]annCHEM OIUJZ9381-90-62 07:18:94097 [facility]annCHEM WVMBU4733-51-35 07:18:000.5[facility]annHEMATOLOGY 2015-10-10 07:18:0012[facility]UR[facility] VCWOX8210-40-95 17:37:00Yellow *NA*(10/09/15 11:37 AM)[facility] TKJNX3368-22-35 17:37:00Clear (10/09/15 11:37 AM)[facility] PROPF8900-56-70 17:37:00Negative *NA*(10/09/15 11:37 AM)[facility] ZPFRT4260-18-78 17:37:00Negative (10/09/15 11:37 AM)[facility] FMGSJ6356-87-91 17:37:001[facility] OXFOU1468-50-74 17:37:00Negative (10/09/15 11:37 AM)[facility] LWPJS9237-46-38 17:37:00Negative (10/09/15 11:37 AM)[facility] QREDU5679-47-12 17:37:005.0[facility] STOOL 2015-10-09 17:37:001.010[facility] LZYQG2411-71-65 17:37:001 [facility] WVLBI9395-47-68 17:37:001[facility]annHEMATOLOGY 2015-10-09 10:52:00Normal (10/09/15 4:52 AM)[facility] WsrnlnpGRLGCCUHGR1157-63-79 10:52:00Normal (10/09/15 4:52 AM)[facility]annANEMIA EGKVD0268-96-94 22:52:00 189[facility]annANEMIA CDUIX0457-38-20 22:52:0012[facility]annANEMIA STUDY 2015-10-06 22:52:98296Umfaitdm HermannANEMIA KIIWB4642-14-87 22:52:0024[facility] HermannANEMIA QRYXU7091-39-91 22:52:60859Bzmhkmht PfytxvdLETSPQLKVA0043-14-05 22:52:004.3[facility] HermannBLOOD BANK JJDGKLG6997-73-57 10:35:00Negative (10/05/15 4:35 AM)[facility] CgttrssNCMEHXDDTK9924-06-03 09:16:001.68[facility] IoruyliDFSZUDMOVD6620-88-14 09:16:00 Test Item Value Reference Range Interpretation Comments PT (test code = PT) 20.1 s 12.0-14.7 [facility] UklcoigIWLCIPVRBA2339-59-59 09:16:00 Test Item Value Reference Range Interpretation Comments PTT (test code = PTT) 36.2 s 22.9-35.8 [facility] HermannCARDIAC EBLWERH6312-76-03 19:01:69542Sirmgzjr HermannBLOOD BANK FBZDNLI1379-69-81 15:57:00Negative (10/02/15 9:57 AM)[facility] HermannCHEM PANEL 2015-10-02 08:56:0016[facility] RnbsdezAGGRWOGCRV4771-68-76 08:56:00 Test Item Value Reference Range Interpretation Comments PT (test code = PT) 20.9 s 12.0-14.7 [facility] KjuazytPUDJSIHTPP6115-79-07 08:56:001.77[facility] HermannHEMATOLOGY 2015-10-02 08:56:00 Test Item Value Reference Range Interpretation Comments PTT (test code = PTT) 33.9 s 22.9-35.8 [facility] HermannCHEM YAUZK5016-20-57 00:37:006.8[facility]UR[facility] STOOL 2015-10-02 00:37:00Negative *NA*(10/01/15 6:37 PM)[facility] STOOL 2015-10-02 00:37:00Moderate *ABN*(10/01/15 6:37 PM)[facility] STOOL 2015-10-02 00:37:00Negative (10/01/15 6:37 PM)[facility] STOOL 2015-10-02 00:37:003[facility]UR[facility] AND PGWBZ0748-87-31 00:37:00Yellow *NA*(10/01/15 6:37 PM)[facility] EVUHE5141-49-52 00:37:0015[facility]UR[facility] AND UHLZY1424-15-31 00:37:00Moderate *ABN*(10/01/15 6:37 PM)[facility] CLCKM2687-73-52 00:37:00Slight *ABN*(10/01/15 6:37 PM)[facility] WQJID8973-87-11 00:37:001.016[facility]UR[facility] STOOL 2015-10-02 00:37:005.0[facility]UR[facility] AND WYZBE4794-36-64 00:37:009 [facility]UR[facility] FYAY1372-32-90 00:37:0052.6[facility]annURINE CHEM 2015-10-02 00:37:0016[facility]annURINE NOAZ2954-98-02 00:37:94788.00[facility]annURINE VSMQ1980-48-14 00:37:000.5[facility] HermannCHEM NMLRK4963-09-91 21:22:005.6[facility] CqesxxkHJPPYCAGZB0115-41-47 14:40:00 Test Item Value Reference Range Interpretation Comments PTT (test code = PTT) 35.1 s 22.9-35.8 [facility] KzzhwnuJUZVKCTBWD9888-77-93 14:40:00 Test Item Value Reference Range Interpretation Comments PT (test code = PT) 21.2 s 12.0-14.7 [facility] KrbjexeJKSTXBOHPI4295-44-99 14:40:001.80[facility]annBLOOD BANK TMRVYZQ1525-41-78 09:00:00Product available (10/01/15 3:00 AM)[facility] PARATHYROID WJIEGTO1842-88-42 07:16:001.08[facility] HermannPARATHYROID PROFILE 2015-10-01 07:16:001.09[facility] HermannCHEM SAHBE6043-09-91 01:18:009[facility] HermannBACTERIAL - EIHUQGFL4899-45-15 23:53:00Negative (09/30/15 5:53 PM)[facility] TzmwmhkHZOHNEPURA8835-47-15 23:53:00Normal (09/30/15 5:53 PM)[facility] UVIOFZRWVY6850-71-94 23:53:00Normal (09/30/15 5:53 PM)[facility] HermannPARATHYROID NGYMJKF4134-66-74 23:53:000.95[facility] HermannPARATHYROID MBDDSQU1533-85-03 23:53:000.99[facility] HermannCARDIAC MCNRIMN6073-17-19 09:30:83879Eyczssxq HermannCHEM OCBSX7108-27-45 09:30:03633Jworyrra HermannCHEM PFCRS6524-89-09 09:30:0014[facility] HermannCHEM WVXNR6414-98-67 09:30:0052[facility]annBLOOD BANK KRBTKYA0646-60-51 23:51:00Negative (09/29/15 5:51 PM)[facility] HermannCHEM RDZDM6568-49-12 08:55:003.1[facility] HermannCHEM ABXLJ0682-49-97 08:55:002.0 [facility] TpapnvdOBXKFTMUXFZH6061-43-82 08:55:0025[facility] HermannELECTROLYTES 2015-09-22 08:55:008.4[facility] AbxeutjFHQQQWTNQXCG1852-21-41 08:55:0012.2 [facility] DbshwxgOBMSYSRAKHZZ4988-74-82 08:55:0085[facility] HermannELECTROLYTES 2015-09-22 08:55:52682Wdmxgwum AdgxnusQWACTLSKDWON3269-86-60 08:55:0013[facility] GzfgcpiYCAOTFNMPMEA9436-91-90 08:55:000.88[facility] NyjiwjtTOUYPRRWEPWN4860-41-22 08:55:09100Gsbhbrnj QulvwkfZWQGRQYVFFOS5160-98-61 08:55:003.2[facility] ATDMECXVEFRJ7220-91-50 08:55:16626Agxacauh RpxqnncHLWPPFNQFB7760-33-59 08:55:00 6.9[facility] GxkrynfHYZEZJVRSB1976-96-80 08:55:0057.6[facility]annHEMATOLOGY 2015-09-22 08:55:0011.0[facility] NamlxdnGEALIPMPTK8072-21-16 08:55:001.0[facility] LisiyzlHMXKUEGRHO0901-66-48 08:55:0023.5[facility] ClhpvxoQLJVBUTYCC8339-60-76 08:55:000.5[facility] NaeansfFYPOMFCHLS1318-79-78 08:55:004.5[facility] DQUBJFVEAD5683-26-11 08:55:000.9[facility] HpovqfqJRMXYGVZOF6133-75-91 08:55:000.1 [facility] HwhgpnkICEBFNMSEY0719-11-17 08:55:001.8[facility]annHEMATOLOGY 2015-09-22 08:55:008.4[facility] CznlvxsTNHZIHYJLI3287-77-96 08:55:58856Tahegesg GfkszcnSNACQTQZFH2507-46-55 08:55:007.8[facility] SddwnbtATBPRNEZSN3138-45-25 08:55:0013.6[facility] IvnpnbiXCDCGILWVL9339-95-09 08:55:0032.5[facility] JMSKASCYXU5897-50-93 08:55:00 Test Item Value Reference Range Interpretation Comments MCH (test code = MCH) 29.7 pg 27.0-31.0 [facility] YujgumfJQIDHDIJVX7983-16-69 08:55:004.58[facility]annHEMATOLOGY 2015-09-22 08:55:0091.4[facility] UwkivxoKWDFSPFAKS8513-92-17 08:55:0041.8[facility] HthwenuRRWLRFJSKN4431-54-46 08:55:0014.8[facility] HermannCHEM OFHDF6311-03-23 08:28:002.5[facility] HermannCHEM LDNKG6610-61-33 08:28:002.1[facility] HermannCHEM BWNGW4307-69-02 08:28:0094[facility] HermannCHEM WJVNW3996-09-92 08:28:0010 [facility] HermannCHEM SDHUK4207-14-87 08:28:25280Eryftarx HermannCHEM PANEL 2015-09-21 08:28:0023[facility] HermannCHEM CFEIE9409-04-19 08:28:008.5[facility] HermannCHEM EREUW7342-16-09 08:28:000.69[facility]annCHEM LGOFT3092-68-34 08:28:29281Gyqxliml HermannCHEM HBBJJ1758-19-66 08:28:003.3[facility] HermannCHEM UHQMM7353-82-66 08:28:68884Fbqhliht HermannCHEM VKCIW4897-60-25 08:28:0014.3 [facility] RwmatbuUDEHJWSGIW2319-54-29 08:28:000.1[facility]annHEMATOLOGY 2015-09-21 08:28:001.6[facility] EbmfvazEPRPEJKFXH3999-54-86 08:28:005.4[facility] MmxjbhpYYKFVCRGCR8408-34-30 08:28:000.2[facility] PsikxqcIECWOWGQKK8974-90-04 08:28:000.8[facility] NjkvcvtIKYTJZEKFK1126-59-56 08:28:000.8[facility] EZDOAYRAMW4398-14-94 08:28:009.6[facility] CumrbxrQBPLAURUAI1772-60-38 08:28:002.1 [facility] MxerxnaISONINHLVT8579-89-65 08:28:0067.7[facility] HermannHEMATOLOGY 2015-09-21 08:28:0019.8[facility] FsykjrwYIXLOWRACG7776-70-08 08:28:0015.0[facility] GfchgxfDOPSRSNRTN9297-78-46 08:28:52988Zpnlntqk UcqpazuBATKEGPRNL3833-26-64 08:28:008.2[facility] RolvchqFERJHHVVKS1717-39-53 08:28:0013.6[facility] HUEFDVYSGZ4743-87-02 08:28:00 Test Item Value Reference Range Interpretation Comments MCH (test code = MCH) 29.2 pg 27.0-31.0 [facility] VzsmrmwQPUHEOOCOE5187-59-73 08:28:0043.0[facility] HermannHEMATOLOGY 2015-09-21 08:28:0092.4[facility] JqttldcLJXMKIXDNE5770-67-43 08:28:008.0[facility] HbsjhseDBUNQZEUEF6498-16-18 08:28:004.66[facility] EaxektmFUVWVJRFBR3744-73-27 08:28:0031.6[facility] HermannPARATHYROID KYINNUZ6503-34-56 08:28:001.05[facility] HermannPARATHYROID ZGNJAHY5837-79-22 08:28:001.06[facility] HermannCARDIAC ENZYMES 2015-09-20 16:47:0045[facility] HermannCARDIAC WOUROWP9774-23-23 16:47:000.02 [facility]annCARDIAC GXRUHGI7161-24-11 16:47:00<0.010[facility] BACTERIAL - QPHVSSAP3809-61-65 08:08:00Negative (09/20/15 2:08 AM)[facility]annCARDIAC LZMJZMG5037-45-01 08:00:0045[facility] HermannCARDIAC ENZYMES 2015-09-20 08:00:00<0.010[facility]annCARDIAC XTEGHPG5254-87-46 08:00:00 0.02[facility] HermannCHEM MUDUZ8606-41-16 08:00:0072[facility] HermannCHEM PANEL 2015-09-20 08:00:008.3[facility] HermannCHEM XXPKQ6253-80-36 08:00:001.02[facility] HermannCHEM SNJGF2204-40-32 08:00:29804Otnufbkt HermannCHEM DOSBN9300-68-77 08:00:0018[facility] HermannCHEM ECIBT5392-32-90 08:00:0024[facility] HermannCHEM ANBRA3084-06-36 08:00:0012.1[facility] HermannCHEM DHHDB5158-91-39 08:00:003.1 [facility] HermannCHEM QUHSG1423-50-88 08:00:65102Strvemlc HermannCHEM PANEL 2015-09-20 08:00:54527Bbhoiwbg HermannCHEM OMKON9432-77-56 08:00:000.5[facility] HermannCHEM ZAZCO0315-42-31 08:00:000.3[facility] HermannCHEM MRQSI3802-44-16 08:00:000.8[facility] HermannCHEM QAJLY0861-31-08 08:00:0018[facility] HermannCHEM CRBUG8602-74-45 08:00:86187Nyrmidvh HermannCHEM APPXP5810-89-16 08:00:000.8 [facility] HermannCHEM TIMPH2917-11-98 08:00:0029[facility] HermannCHEM PANEL 2015-09-20 08:00:007.1[facility] HermannCHEM LQKVQ2193-63-86 08:00:004.0[facility] HermannCHEM ZCEYP4285-14-92 08:00:003.1[facility] HermannCHEM OVRBS6375-92-82 08:00:003.8[facility] HermannCHEM XRZSV7025-19-82 08:00:001.8[facility] KMLXBDKXKX4042-88-73 08:00:0032.4[facility] GmxupxdZLTCQPVOPI2128-88-33 08:00:00 14.2[facility] UkyxlzlPXXOTCXTBF0151-61-75 08:00:23483Wkwguege HermannHEMATOLOGY 2015-09-20 08:00:008.1[facility] ThbvcctTSZWZPWPQE8596-02-98 08:00:00 Test Item Value Reference Range Interpretation Comments MCH (test code = MCH) 29.6 pg 27.0-31.0 [facility] NeknvyxZEWBHLAOPJ0696-34-37 08:00:008.1[facility] HermannHEMATOLOGY 2015-09-20 08:00:004.62[facility] TkmplqbQPJUERHRJW4751-21-11 08:00:0013.6[facility] CxtyiswRPUVDFVSAQ8478-71-38 08:00:0042.2[facility] LjruepiDQKRWNHIES7685-25-93 08:00:0091.3[facility] JzyzpjjBEMYTTOVKL7744-95-27 08:00:0017[facility] RDNJSVZBIF4403-70-39 08:00:000.7[facility] KkmwmiqAKCPOAKPQI5808-73-87 08:00:00 23.3[facility] EpwnxnhTFMAUPBGJS0043-71-20 08:00:007.7[facility] HermannHEMATOLOGY 2015-09-20 08:00:0066.5[facility] FgecwmaXSKMLCPKFH9478-56-19 08:00:001.8[facility] WgngbxaNFRXNKXFNV8553-99-87 08:00:000.1[facility] WvggsxmKISWXGIVBT3043-02-95 08:00:000.1[facility] EhsrpucITWLZFSYYP9059-91-40 08:00:001.9[facility] ULILQHTMTC4151-52-38 08:00:000.6[facility] NghityuIWFNDBBTOH5747-15-16 08:00:005.4 [facility] HermannPARATHYROID GVZISRN6240-47-67 08:00:001.06[facility] PARATHYROID TJDNKGM3394-46-12 08:00:001.06[facility]annDRUG SEEVDH8433-19-95 04:09:00See Note *NA*(09/19/15 10:09 PM)[facility] KSYJXH7991-70-83 04:09:00Negative *NA*(09/19/15 10:09 PM)[facility] HOGZYI2431-10-23 04:09:00Negative *NA*(09/19/15 10:09 PM)[facility] EDFJAH3709-86-39 04:09:00Negative *NA*(09/19/15 10:09 PM)[facility] [id number] 04:09:00Negative *NA*(09/19/15 10:09 PM)[facility] GSQJKP4309-77-07 04:09:00Negative *NA*(09/19/15 10:09 PM)[facility] RFJADL3529-57-41 04:09:00Negative *NA*(09/19/15 10:09 PM)[facility] BQJGLY8375-60-19 04:09:00Negative *NA*(09/19/15 10:09 PM)[facility] JsbnuznPBUNWP6593-44-07 04:09:002.84[facility] AzgtyrvPJUCUX7237-61-34 04:09:0037[facility]annLIPIDS 2015-09-20 04:09:0037[facility] WppmshbICZUHZ6197-81-83 04:09:0031[facility] QCRKUF0674-98-51 04:09:33583Ogtxzkrz FodombwUAYVCO6594-67-84 04:09:25457Zrqrgddz HermannSPECIAL RKEAOWUYD4489-57-10 04:09:006.0[facility]annUR[facility] AND STOOL 2015-09-20 04:09:00Negative *NA*(09/19/15 10:09 PM)[facility] [id number] 04:09:00Negative (09/19/15 10:09 PM)[facility] HTHZS4501-10-94 04:09:000.2[facility] UVZXA1332-87-88 04:09:00 Small *ABN*(09/19/15 10:09 PM)[facility] CYKWA3717-41-79 04:09:00 Negative *NA*(09/19/15 10:09 PM)[facility] OKQOI1545-37-04 04:09:00 Test Item Value Reference Range Interpretation Comments UA Spec Grav (test code = UA Spec 1.015 1 Grav) [facility] CRRAV7436-03-23 04:09:00Clear (09/19/15 10:09 PM) [facility] [id number] 04:09:00 Test Item Value Reference Range Interpretation Comments UA pH (test code = UA pH) 5.5 1 5.0-8.0 [facility] [id number] 04:09:00Negative (09/19/15 10:09 PM) [facility] OIQMG2542-27-75 04:09:00Negative (09/19/15 10:09 PM) [facility] BVKWL3232-18-65 04:09:00Yellow *NA*(09/19/15 10:09 PM) [facility] DWRDH4462-22-01 04:09:00None Seen (09/19/15 10:09 PM) [facility] FJTGO3835-64-23 04:09:000-2 (09/19/15 10:09 PM) [facility]annCHEM BIKTJ9019-31-02 03:12:001.4[facility]annHEMATOLOGY 2015-09-20 03:00:00Citrated Whole Blood (09/19/15 9:00 PM)[facility] TKEWFCCBBS0152-20-38 03:00:00 Test Item Value Reference Range Interpretation Comments ACT (TEG) (test code = ACT (TEG)) 113 s 86-118 [facility]38 03:00:00 Test Item Value Reference Range Interpretation Comments Split Point (test code = Split Point) 0.5 min [facility] VqmcdoeJLPMRNEZQX8466-01-45 03:00:00 Test Item Value Reference Range Interpretation Comments R-time (test code = R-time) 0.7 min 0.4-0.7 [facility] VjoawrnMBSDYVONAQ2346-05-69 03:00:00 Test Item Value Reference Range Interpretation Comments K-time (test code = K-time) 1.2 min 0.6-2.3 [facility] MfirdotJJEREQMDEF3724-29-76 03:00:00 Test Item Value Reference Range Interpretation Comments Angle (test code = Angle) 75 degrees 64-80 [facility] RmdqxrxTEBJYAYGWY0989-19-93 03:00:009.4[facility]annHEMATOLOGY 2015-09-20 03:00:00 Test Item Value Reference Range Interpretation Comments Max Amp (test code = Max Amp) 65 mm 52-71 [facility] UlbcyzrMHGLIHZKRD3410-97-51 03:00:004.1[facility]annCARDIAC ENZYMES 2015-09-20 02:50:003.8[facility]annCARDIAC IHAIMMY6856-88-11 02:50:0053 [facility] HermannCARDIAC KTOKSQU9101-75-94 02:50:00<0.02[facility] CARDIAC SAKJCXO4256-76-92 02:50:002.0[facility] QioyilzJGNUJDAKZC3815-71-29 02:50:00 Test Item Value Reference Range Interpretation Comments PTT (test code = PTT) 33.4 s 22.9-35.8 [facility] FivmkhfURSWVYZNDW9625-68-37 02:50:001.17[facility]annHEMATOLOGY 2015-09-20 02:50:00 Test Item Value Reference Range Interpretation Comments PT (test code = PT) 15.2 s 12.0-14.7 [facility]
[2020-11-28 17:08] LABS: Absolute Lymphocytes (CBC) 0.8 K/uL (0.7-4.9); Basophils % 0.7 % (0-1.3); Lymphocytes % 8.9 % (15.3-44.8); MPV 7.9 fL (7.6-11.3)
[2020-11-28 17:16] LABS: Protime INR 1.23
--- NOTE | 2020-11-28 17:20 | RAD REPORT ---
EXAM DESCRIPTION: Camille Single View11/28/2020 5:02 pm CLINICAL HISTORY: Shortness of breath COMPARISON: July 2020 FINDINGS: Small to moderate left and small right pleural effusions Mild bilateral pulmonary opacities. Heart is moderately enlarged Postsurgical changes involve the chest. IMPRESSION: These findings probably indicate CHF
[2020-11-28] MEDS ORDERED: FUROSEMIDE 40 MG/4 ML VIAL ONE (17:22)
[2020-11-28 17:29] LABS: ALT/SGPT 25 U/L (12-78); AST/SGOT 15 U/L (15-37); Albumin 3.5 g/dL (3.4-5.0); Alkaline Phosphatase 212 U/L (45-117); BUN Blood Urea Nitrogen 24 mg/dL (7-18); Bicarbonate 25 mmol/L (21-32); Bilirubin Direct 0.3 mg/dL (0-0.2); Bilirubin Total 0.6 mg/dL (0.2-1.0); Glucose Level 113 mg/dL (74-106); Magnesium 2.6 mg/dL (1.8-2.4); NT PRO-BNP 2218 pg/mL (<450); Potassium 4.4 mmol/L (3.5-5.1); Protein, Total 8.1 g/dL (6.4-8.2); Sodium Level 140 mmol/L (136-145); Troponin (Emerg Dept Use Only) < 0.02 ng/mL (0.0-0.045)
--- NOTE | 2020-11-28 18:18 | ER ---
Nurse's Notes [facility] Name: Donell Valle Jr Age: 80 yrs Sex: Male : 1940 Arrival Date: 11/28/2020 Time: 14:03 Bed 15 Private MD: Eriberto Ballard R Diagnosis: Heart failure;Dyspnea;Edema, unspecified Presentation: 11/28 14:12 Chief complaint: Patient states: "I was sent by Dr. Hickman's office for shortness of jd3 breath. I have been seen in the past for this same problem of fluid on my lungs. and feet swelling.". Coronavirus screen: At this time, the client does not indicate any symptoms associated with coronavirus-19. Ebola Screen: Patient negative for fever greater than or equal to 101.5 degrees Fahrenheit, and additional compatible Ebola Virus Disease symptoms. Initial Sepsis Screen: Does the patient meet any 2 criteria? No. Patient's initial sepsis screen is negative. Does the patient have a suspected source of infection? No. Patient's initial sepsis screen is negative. Risk Assessment: Do you want to hurt yourself or someone else? Patient reports no desire to harm self or others. Onset of symptoms was November 21, 2020. 14:12 Method Of Arrival: Ambulatory jd3 14:12 Acuity: ALTAF 3 jd3 Historical: - Allergies: 14:17 NKDA; jd3 - Home Meds: 14:17 aspirin 81 mg Oral TbEC once daily [Active]; amlodipine 10 mg tab 1 tab once daily jd3 [Active]; spironolactone 25 mg Oral tab 1 tab once daily [Active]; atorvastatin 40 mg Oral tab 1 tab once daily [Active]; digoxin 125 mcg Oral tab [Active]; nifedipine 60 mg Oral TbER 1 tab once daily [Active]; bumetanide 0.5 mg Oral tab 1 tab 2 times per day [Active]; sulfamethoxazole-trimethoprim Oral [Active]; losartan 100 mg oral tab [Active]; - PMHx: 14:17 Hypertension; CVA; Atrial Fib; jd3 - PSHx: 14:17 TURP; Cholecystectomy; cardiac ablation; CABG; jd3 - Immunization history:: Adult Immunizations up to date. - Social history:: Smoking status: Patient/guardian denies using tobacco, but has a distant history of tobacco abuse. Screenin:00 Abuse screen: Denies threats or abuse. Denies injuries from another. Nutritional jl7 screening: No deficits noted. Tuberculosis screening: No symptoms or risk factors identified. Fall Risk IV access (20 points). Total Orlando Fall Scale indicates No Risk (0-24 pts). Assessment: 16:25 General: Appears in no apparent distress. uncomfortable, Behavior is calm, cooperative, jl7 appropriate for age. Pain: Denies pain. Neuro: Level of Consciousness is awake, alert, obeys commands, Oriented to person, place, time, situation. Cardiovascular: Reports shortness of breath, Patient's skin is warm and dry. Edema is 3+ to bilateral lower extremities Rhythm is atrial fibrillation. Respiratory: Reports shortness of breath at rest Airway is patent Respiratory effort is even, labored, Respiratory pattern is symmetrical, tachypnea. Derm: Skin is pink, warm \\T\\ dry. 17:30 Reassessment: Patient appears in no apparent distress at this time. No changes from jl7 previously documented assessment. Patient and/or family updated on plan of care and expected duration. Pain level reassessed. Patient is alert, oriented x 3, equal unlabored respirations, skin warm/dry/pink. 18:24 Reassessment: Patient appears in no apparent distress at this time. No changes from jl7 previously documented assessment. Patient and/or family updated on plan of care and expected duration. Pain level reassessed. Patient is alert, oriented x 3, equal unlabored respirations, skin warm/dry/pink. 19:49 General: Appears in no apparent distress. Behavior is appropriate for age. Pain: Denies ea pain. Neuro: Level of Consciousness is awake, alert, obeys commands, Oriented to person, place, time, situation. Cardiovascular: Patient's skin is warm and dry. Respiratory: Airway is patent Respiratory effort is even, Respiratory pattern is regular, symmetrical. Derm: Skin is pink, warm \\T\\ dry. 20:00 Reassessment: Patient and/or family updated on plan of care and expected duration. Pain ea level reassessed. Patient is alert, oriented x 3, equal unlabored respirations, skin warm/dry/pink. Awaiting on covid results. 21:52 Reassessment: Patient and/or family updated on plan of care and expected duration. Pain ea level reassessed. Patient is alert, oriented x 3, equal unlabored respirations, skin warm/dry/pink. Report given to receiving nurse. 21:59 Reassessment: Patient and/or family updated on plan of care and expected duration. Pain ea level reassessed. Patient is alert, oriented x 3, equal unlabored respirations, skin warm/dry/pink. Pt admitted to second floor. Left ED via wheelchair per tech. Pt tolerating well. Vital Signs: 14:17 BP 117 / 66; Pulse 65; Resp 19 S; Temp 98.1(TE); Pulse Ox 97% on R/A; Weight 90.26 kg jd3 (R); Height 6 ft. 0 in. (182.88 cm) (R); Pain 5/10; 16:49 BP 126 / 79; Pulse 66; Resp 29; Pulse Ox 95% on R/A; jl7 17:00 BP 123 / 70; Pulse 65; Resp 17; Pulse Ox 100% on 2 lpm NC; jl7 17:30 BP 119 / 70; Pulse 68; Resp 17; Pulse Ox 100% on 2 lpm NC; jl7 18:00 BP 119 / 75; Pulse 62; Resp 24 S; Pulse Ox 100% on 2 lpm NC; jl7 19:50 BP 127 / 64; Pulse 67; Resp 20; Pulse Ox 99% on R/A; ea 21:50 Pulse Ox 91% on R/A; dh4 21:54 BP 120 / 80; Pulse 80; Resp 18; Pulse Ox 95% on R/A; ea 14:17 Body Mass Index 26.99 (90.26 kg, 182.88 cm) [facility] ED Course: 14:03 Patient arrived in ED. am2 14:03 Eriberto Ballard MD is Private Physician. am2 14:14 Triage completed. jd3 14:18 Arm band placed on. jd3 16:24 Fly Garcia PA is PHCP. [facility] 16:24 Mandeep Vanegas MD is Attending Physician. [facility] 16:25 Mykel Vidal RN is Primary Nurse. jl7 16:25 Patient has correct armband on for positive identification. Placed in gown. Bed in low jl7 position. Call light in reach. Side rails up X 1. bi architect on. Pulse ox on. NIBP on. 16:48 EKG done, by ED staff, reviewed by Fly LEONARDO. jl7 17:00 Initial lab(s) drawn, by me, sent to lab. Inserted saline lock: 20 gauge in right jl7 forearm, using aseptic technique. Blood collected. 17:02 XRAY Chest (1 view) In Process Unspecified. EDMS 18:16 Charles Berumen DO is Hospitalizing Provider. tashi 19:51 No provider procedures requiring assistance completed. Patient admitted, IV remains in ea place. Administered Medications: 18:00 Drug: Lasix 40 mg Route: IVP; Site: right forearm; jl7 19:55 Follow up: Response: No adverse reaction ea Outcome: 18:17 Decision to Hospitalize by Provider. tashi 19:51 Instructed on the need for admit, Demonstrated understanding of instructions. ea 21:54 Admitted to Med/surg accompanied by tech, room 217, with chart, Report called to ea Receiving nurse on second floor 21:54 Condition: stable 22:00 Patient left the ED. ea Signatures: Dispatcher [employer] EDMS Fly Garcia PA PA jmm Leal, Jahala, RN RN jl7 Rashmi Mckeon amAlisha Culver RN RN Feliz Ayala RN RN jd3 Lanre Kinney 4 Corrections: (The following items were deleted from the chart) 18:27 16:49 BP 126 / 79; Pulse 66bpm; Resp 29bpm; Pulse Ox 95%; jl7 jl7
--- NOTE | 2020-11-28 18:18 | EDPHYS ---
Physician Documentation [facility] Name: Donell Valle Jr Age: 80 yrs Sex: Male : 1940 Arrival Date: 11/28/2020 Time: 14:03 Bed 15 Private MD: Eriberto Ballard R ED Physician Mandeep Vanegas HPI: 11/28 18:06 This 80 yrs old Male presents to ER via Ambulatory with complaints of jmm Shortness Of Breath, Feet Swelling. 18:06 The patient has shortness of breath at rest, while talking, and the patient has a [facility] history of CHF. Onset: The symptoms/episode began/occurred gradually, yesterday. Duration: The symptoms are intermittent, with no pattern. Associated signs and symptoms: Pertinent positives: Chest pressure. Severity of symptoms: in the emergency department the symptoms are unchanged. Patient presents with SOB and BLE swelling. He reports similar hx in July where he was told he fluid on his lungs. . Historical: - Allergies: 14:17 NKDA; jd3 - Home Meds: 14:17 aspirin 81 mg Oral TbEC once daily [Active]; amlodipine 10 mg tab 1 tab once daily jd3 [Active]; spironolactone 25 mg Oral tab 1 tab once daily [Active]; atorvastatin 40 mg Oral tab 1 tab once daily [Active]; digoxin 125 mcg Oral tab [Active]; nifedipine 60 mg Oral TbER 1 tab once daily [Active]; bumetanide 0.5 mg Oral tab 1 tab 2 times per day [Active]; sulfamethoxazole-trimethoprim Oral [Active]; losartan 100 mg oral tab [Active]; - PMHx: 14:17 Hypertension; CVA; Atrial Fib; jd3 - PSHx: 14:17 TURP; Cholecystectomy; cardiac ablation; CABG; jd3 - Immunization history:: Adult Immunizations up to date. - Social history:: Smoking status: Patient/guardian denies using tobacco, but has a distant history of tobacco abuse. ROS: 18:08 Abdomen/GI: Negative for abdominal pain, nausea, vomiting, diarrhea, and constipation, jmm : Negative for injury, bleeding, discharge, and swelling, Neuro: Negative for headache, weakness, numbness, tingling, and seizure. 18:08 Eyes: 18:08 Cardiovascular: Positive for edema, orthopnea, Chest pressure. 18:08 Cardiovascular: Positive for 18:08 Respiratory: Positive for orthopnea, shortness of breath, at rest. 18:08 MS/extremity: 18:08 MS/extremity: Positive for swelling. Exam: 18:10 Chest/axilla: Normal chest wall appearance and motion. Abdomen/GI: Non distended, jmm soft Neuro: Awake and alert, normal gait 18:10 Head/face: Noted is swelling, that is moderate, of the right eye and left eye. 18:10 Eyes: Periorbital structures: swelling, bilaterally. 18:10 Chest/axilla: Inspection: normal, Palpation: is normal, Axilla: are normal. 18:10 Cardiovascular: Rate: bradycardic, actual rate is 59 bpm, Rhythm: irregular, Pulses: Pulses are 2+ in right radial artery and left radial artery. not palpable, BLE, Heart sounds: normal, Edema: 2+ edema to level of left knee, left midcalf, left ankle, left foot, left toes, right knee, right midcalf, right ankle, right foot and right toes. 18:10 Respiratory: moderate respiratory distress is noted, Respirations: labored breathing, that is mild, tachypnea, 28 Breath sounds: decreased breath sounds, that are moderate, are heard in the right posterior upper lobe, right posterior middle lobe and right posterior lower lobe. Vital Signs: 14:17 BP 117 / 66; Pulse 65; Resp 19 S; Temp 98.1(TE); Pulse Ox 97% on R/A; Weight 90.26 kg jd3 (R); Height 6 ft. 0 in. (182.88 cm) (R); Pain 5/10; 16:49 BP 126 / 79; Pulse 66; Resp 29; Pulse Ox 95% on R/A; jl7 17:00 BP 123 / 70; Pulse 65; Resp 17; Pulse Ox 100% on 2 lpm NC; jl7 17:30 BP 119 / 70; Pulse 68; Resp 17; Pulse Ox 100% on 2 lpm NC; jl7 18:00 BP 119 / 75; Pulse 62; Resp 24 S; Pulse Ox 100% on 2 lpm NC; jl7 19:50 BP 127 / 64; Pulse 67; Resp 20; Pulse Ox 99% on R/A; ea 21:50 Pulse Ox 91% on R/A; dh4 21:54 BP 120 / 80; Pulse 80; Resp 18; Pulse Ox 95% on R/A; ea 14:17 Body Mass Index 26.99 (90.26 kg, 182.88 cm) jd3 MDM: 16:53 Patient medically screened. [facility] 18:19 Data reviewed: vital signs, nurses notes, lab test result(s), EKG, radiologic studies. [facility] Data interpreted: personnel monitor: rate is 59 beats/min, rhythm is atrial fibrillation, irregular, Pulse oximetry: on room air is 95 %. Interpretation: acceptable. 11/28 16:27 Order name: Basic Metabolic Panel [facility] 11/28 16:27 Order name: CBC with Diff [facility] 11/28 16:27 Order name: LFT's [facility] 11/28 16:27 Order name: Magnesium [facility] 11/28 16:27 Order name: NT PRO-BNP; Complete Time: 17:30 [facility] 11/28 16:27 Order name: PT-INR; Complete Time: 17:28 [facility] 11/28 16:27 Order name: Troponin (emerg Dept Use Only); Complete Time: 17:30 [facility] 11/28 16:28 Order name: Basic Metabolic Panel; Complete Time: 17:30 EDSD 11/28 16:28 Order name: CBC with Automated Diff; Complete Time: 17:21 [facility] 11/28 16:28 Order name: Liver (Hepatic) Function; Complete Time: 17:30 EDMS 11/28 16:28 Order name: Magnesium; Complete Time: 17:30 [facility] 11/28 19:19 Order name: COVID-19 : Document "Date of Symptom Onset" if Symptomatic. tt3 11/28 19:46 Order name: CORONAVIRUS [facility] 11/28 20:28 Order name: SARS-COV-2 RT PCR; Complete Time: 20:33 [facility] 11/28 16:27 Order name: XRAY Chest (1 view); Complete Time: 17:21 [facility] 11/28 16:27 Order name: EKG; Complete Time: 16:28 [facility] 11/28 16:27 Order name: Cardiac monitoring; Complete Time: 16:48 [facility] 11/28 16:27 Order name: EKG - Nurse/Tech; Complete Time: 16:48 [facility] 11/28 16:27 Order name: IV Saline Lock; Complete Time: 18:20 [facility] 11/28 16:27 Order name: Labs collected and sent; Complete Time: 18:20 [facility] 11/28 16:27 Order name: O2 Per Protocol; Complete Time: 16:48 [facility] 11/28 16:27 Order name: O2 Sat Monitoring; Complete Time: 16:48 [facility] Administered Medications: 18:00 Drug: Lasix 40 mg Route: IVP; Site: right forearm; 7 19:55 Follow up: Response: No adverse reaction ea Disposition: 11/29 06:49 Co-signature as Attending Physician, Mandeep Vanegas MD I agree with the assessment and kdr plan of care. Disposition: 11/28/20 18:17 Hospitalization ordered by Charles Berumen for Inpatient Admission. Preliminary diagnosis are Heart failure, Dyspnea, Edema, unspecified. - Bed requested for Telemetry/MedSurg (Inpatient). - Status is Inpatient Admission. ea - Condition is Stable. - Problem is an acute exacerbation. - Symptoms have improved. Signatures: Dispatcher [employer] EDSD Mandeep Vanegas MD MD kdr Mickail, Joel, PA PA [facility] Lili Macario RN RN cg Leal, Jahala, RN RN jl7 Alisha Jack RN RN ea Davies, Jonathon RN RN jd3 Corrections: (The following items were deleted from the chart) 11/28 21:12 18:17 Hospitalization Ordered by Charles Berumen DO for Inpatient Admission. Preliminary cg diagnosis is Heart failure; Dyspnea; Edema, unspecified. Bed requested for Telemetry/MedSurg (Inpatient). Status is Inpatient Admission. Condition is Stable. Problem is an acute exacerbation. Symptoms have improved. [facility] 22:00 21:12 11/28/2020 18:17 Hospitalization Ordered by Charles Berumen DO for Inpatient ea Admission. Preliminary diagnosis is Heart failure; Dyspnea; Edema, unspecified. Bed requested for Telemetry/MedSurg (Inpatient). Status is Inpatient Admission. Condition is Stable. Problem is an acute exacerbation. Symptoms have improved. cg
--- NOTE | 2020-11-28 19:28 | P.HP ---
Certification for Inpatient Patient admitted to: Inpatient With expected LOS: >2 Midnights Patient will require the following post-hospital care: None Practitioner: I am a practitioner with admitting privileges, knowledge of patient current condition, hospital course, and medical plan of care. Services: Services provided to patient in accordance with Admission requirements found in Title 42 Section 412.3 of the Code of Federal Regulations Patient History Date of Service: 11/28/20 Primary Care Provider: Dr. Ballard, Dr. Ramirez Reason for admission: CHF exacerbation History of Present Illness: 80-year-old male with history of atrial fibrillation not on chronic anticoagulation with history of cardioversion, chronic diastolic congestive heart failure, CAD status post 2 vessel CABG with severe disease, hypertension, hyperlipidemia, suspected CKD presents emergency department for lower extremity swelling and shortness of breath. Patient reports over the course of the last 4-5 days he has noticed increased swelling to his lower extremities and increasing difficulty with breathing. 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 Chest x-ray significant for mild to moderate CHF elevated BNP 2218 troponin negative. On exam patient noted to have 3+ pitting edema bilateral lower extremities, having to sit up in the bed due to orthopnea, patient with significant dyspnea on exertion. ED provider wishes to admit for further evaluation and management. Allergies No Known Drug Allergies Allergy (Verified 04/29/20 10:52) Unknown Home Medications: Atorvastatin Calcium [Lipitor] 1 tab PO BEDTIME 07/27/20 Bumetanide [Bumex*] 1 tab PO BID 07/27/20 Fluticasone/Vilanterol [Breo Ellipta 100-25 Mcg INH] 1 puff IH DAILY 07/27/20 Losartan Potassium [Cozaar] 1 tab PO DAILY 07/27/20 Amiodarone HCl [Cordarone*] 200 mg PO TID #90 tab 07/29/20 Aspirin [Aspirin EC 81 MG] 81 mg PO DAILY #30 tablet. 07/29/20 Atorvastatin Calcium [Lipitor] 40 mg PO BEDTIME #30 tab 07/29/20 Mometasone/Formoterol [Dulera 200 Mcg/5 Mcg Inhaler] 2 puff IH BID #1 inhaler 07/29/20 Nifedipine Xl [Procardia XL*] 60 mg PO DAILY #30 tab 11/03/20 Spironolactone [Aldactone*] 25 mg PO BID #60 tab 07/29/20 - Past Medical/Surgical History Diabetic: Yes -: Hypertension -: COPD -: Atrial fibrillation with prior cardioversion -: Former tobacco use -: Asbestosis -: Hyperlipidemia -: History of CVA -: CAD with prior CABG x2 -: Chronic diastolic congestive heart failure -: CKD 3 -: kidney surgery (stones and partial R kidney removal) -: back surgery -: knee surgery -: TURP -: CABG 2 vessel Psychosocial/ Personal History: Patient , lives with his and is retired - Family History Father -: Lung disease Mother -: Heart disease, Cancer Notes: Colon Cancer-mother. heart disease-mother - Social History Smoking Status: Former smoker Alcohol use: Yes CD- Drugs: No Caffeine use: Yes Place of Residence: Home Review of Systems 10-point ROS is otherwise unremarkable Respiratory: Cough, Dry, Shortness of Breath, SOB with Excertion Cardiovascular: Orthopnea, Paroxysmal Noc. Dyspnea, Edema (3+ pitting edema bilateral lower extremities), As per HPI Physical Examination - Physical Exam General: Alert, In no apparent distress HEENT: Atraumatic, PERRLA, Mucous membr. moist/pink Neck: Supple, 2+ carotid pulse no bruit, No LAD Respiratory: Normal air movement, Diminished, Crackles/rales (Bibasilar) Cardiovascular: Regular rate/rhythm, Normal S1 S2, Edema (+pitting edema bilateral lower extremities) Capillary refill: <2 Seconds Gastrointestinal: Normal bowel sounds, No tenderness Musculoskeletal: No tenderness Integumentary: No rashes Neurological: Normal speech, Normal strength at 5/5 x4 extr, Normal tone, Normal affect - Studies Laboratory Data (last 24 hrs) 11/28/20 16:57: PT 14.2 H, INR 1.23 11/28/20 16:57: WBC 8.60, Hgb 12.1 L, Hct 36.0 L, Plt Count 270 11/28/20 16:57: Sodium 140, Potassium 4.4, BUN 24 H, Creatinine 1.71 H, Glucose 113 H, Magnesium 2.6 H, Total Bilirubin 0.6, AST 15, ALT 25, Alkaline Phosphatase 212 H Assessment and Plan - Plan Assessment Acute on chronic diastolic congestive heart failure with hypervolemia, dyspnea Atrial fibrillation not on chronic anticoagulation therapy with previous cardioversion Severe CAD status post 2 vessel CABG Hypertension Hyperlipidemia History of CVA Plan Acute on chronic diastolic congestive heart failure with hypervolemia, dyspnea: Patient had heart catheterization in April of 2020, recommendation was for medical management, had echocardiogram July of 2020 with normal ejection fraction, similar hospitalization from July where patient was diuresed and improved over the course of 2-3 days. Patient currently taking 0.5 mg Bumex b.i.d., will continue with Lasix 40 mg IV t.i.d. for aggressive diuresis as patient with significant pitting edema of lower extremities and dyspnea. Supplemental oxygen as needed cardiology consult in place 1500 cc per day fluid restriction with daily weights. Patient not compliant with fluid restriction states he was not aware. DVT prophylaxis heparin 5000 units subcutaneous twice daily. Atrial fibrillation not on chronic anticoagulation therapy with previous cardioversion: AFib rate controlled patient takes digoxin and aspirin, cardiology consult in place. Monitor on telemetry. Severe CAD status post 2 vessel CABG: Patient with recent heart cath and echo, recommendations for medical management. Obtain and continue home medications as appropriate. Hypertension: Continue home meds adjust as necessary Hyperlipidemia: Continue home meds. History of CVA: Obtain and continue home meds. Discharge Plan: Home Plan to discharge in: 48 Hours - Advance Directives Does patient have a Living Will: No Does patient have a Durable POA for Healthcare: No - Code Status/Comfort Care Code Status Assessed: Yes (Full code) Critical Care: No Time Spent Managing Pts Care (In Minutes): 55
[2020-11-28] MEDS ORDERED: ONDANSETRON 4 MG/2 ML VIAL IV PRN (22:13)
[2020-11-28] MEDS ORDERED: ACETAMINOPHEN 500 MG TAB PO PRN (22:13)
[2020-11-28] MEDS: HEPARIN 5000 UNIT/ML 1 ML VIAL SQ SCH (22:36)
[2020-11-28 22:44] VITALS: BMI 27.3
[2020-11-29] MEDS: DIGOXIN 0.125 MG TABLET PO SCH ×2 (00:17→09:00)
[2020-11-29] MEDS: ATORVASTATIN 40 MG TAB PO SCH ×2 (00:17→21:03)
[2020-11-29] MEDS: FUROSEMIDE 40 MG/4 ML VIAL IV SCH ×3 (01:02→16:55)
[2020-11-29 05:26] LABS: Absolute Lymphocytes (CBC) 0.5 K/uL (0.7-4.9); Basophils % 0.8 % (0-1.3); Hematocrit 34.6 % (39.6-49.0); Lymphocytes % 7.9 % (15.3-44.8); MPV 8.2 fL (7.6-11.3); RBC Red Blood Cell Count 3.72 M/uL (4.33-5.43)
[2020-11-29 06:05] LABS: Albumin 3.1 g/dL (3.4-5.0); Bilirubin Total 0.6 mg/dL (0.2-1.0); Magnesium 2.6 mg/dL (1.8-2.4); Potassium 4.4 mmol/L (3.5-5.1); Protein, Total 6.8 g/dL (6.4-8.2); Thyroid Stimulating Hormone 1.87 uIU/mL (0.360-3.740)
[2020-11-29] MEDS: SPIRONOLACTONE 25 MG TABLET PO SCH (08:49)
[2020-11-29] MEDS: NIFEDIPINE XL 60 MG TABLET PO SCH (08:50)
[2020-11-29] MEDS: ASPIRIN EC 81 MG TAB PO SCH (08:50)
[2020-11-29] MEDS: HEPARIN 5000 UNIT/ML 1 ML VIAL SQ SCH ×2 (08:50→20:59)
[2020-11-29] MEDS ORDERED: HOME MED 1 EA UNK (Fluticasone/Vilanterol [Breo Ellipta 100-25 Mcg Inh] Blst.W.Dev) IH SCH (09:00)
[2020-11-29] MEDS ORDERED: DULERA 200/5 (MOMETASONE/FORMOTEROL) INHALER IH SCH (09:00)
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
--- NOTE | 2020-11-29 09:54 | P.PN ---
Subjective Date of Service: 11/29/20 Primary Care Provider: Dr. Ballard, Dr. Ramirez Chief Complaint: CHF exacerbation Subjective: Improving, Doing well Physical Examination - Vital Signs Temperature: 97.7 F Blood Pressure: 135/68 Pulse: 69 Respirations: 19 Pulse Ox (%): 98 - Studies Laboratory Data (last 24 hrs) 11/28/20 16:57: PT 14.2 H, INR 1.23 11/28/20 16:57: WBC 8.60, Hgb 12.1 L, Hct 36.0 L, Plt Count 270 11/28/20 16:57: Sodium 140, Potassium 4.4, BUN 24 H, Creatinine 1.71 H, Glucose 113 H, Magnesium 2.6 H, Total Bilirubin 0.6, AST 15, ALT 25, Alkaline Phosphatase 212 H Assessment & Plan Discharge Plan: Home Plan to discharge in: 48 Hours Physician Review Additional Text: - Plan Physical exam: Patient reports improvement. Currently on 2 L per nasal cannula. No significant distress noted. Heart: Regular rate and rhythm Lungs: Diminished to the bases. Currently on 2 L per nasal cannula GI: Soft nontender nondistended Extremities: 1 to 2+ pitting edema to the lower extremities. Good range of motion. No focal deficits noted. Impression: Dyspnea, edema to the lower extremities secondary to Acute on chronic diastolic congestive heart failure with bilateral pleural effusions Atrial fibrillation not on chronic anticoagulation therapy with previous cardioversion Severe CAD status post 2 vessel CABG Acute on chronic renal disease stage III Hypertension Hyperlipidemia History of CVA COPD Plan: Dyspnea, edema to the lower extremities secondary to Acute on chronic diastolic congestive heart failure with bilateral pleural effusions: Patient stable and slightly improved. Previous echo reviewed with normal ejection fraction. Heart catheterization in April of 2020 noted. Recommendation was to continue medical management at that time. Continue with diuresis. Will increase Lasix 40 mg IV 3 times a day. Continue Aldactone. Continue 1500 cc per day fluid restriction and low-salt diet. Will teach on CHF. Cardiology consulted to further evaluate. Recheck chest x-ray tomorrow. Continue DVT prophylaxis. Patient may require oxygen at discharge. Will arrange with social service technician. Anticipate improvement over the next 24-48 hr. Atrial fibrillation not on chronic anticoagulation therapy with previous cardioversion: Patient normal sinus rhythm digoxin and aspirin. Patient also takes Procardia. Acute on chronic renal disease stage III: Overall stable. Will adjust medication accordingly. Nephrology consulted for further recommendation. Severe CAD status post 2 vessel CABG: Continue aspirin. Continue with above plan of care. Patient had heart catheterization in April of 2020. It was recommended to continue with medical management at that time. Echocardiogram in July showed normal ejection fraction. Hypertension: Continue Procardia. Hyperlipidemia: Continue Lipitor. History of CVA: Continue aspirin. COPD: Continue with COPD medication. Maintain oxygen above 93%. Patient may require oxygen at discharge. Time Spent Managing Pts Care (In Minutes): 55
--- NOTE | 2020-11-29 13:33 | CON ---
Date of Consultation: 11/29/2020 Reason For Consultation: Heart failure exacerbation. History Of Present Illness: A 80-year-old male, history of AFib, chronic diastolic heart failure, co ronary artery disease, status post 2-vessel CABG, hypertension, dyslipidemia, chronic kidney disease, presented for worsening lower extremity edema to above the thigh level with shortness of breath and orthopnea. Denies having any chest pain. No other complaints. Past Medical History: As outlined above in the HPI. Medications: Refer to reconciliation sheet for detailed list. Allergies: NO KNOWN DRUG ALLERGIES. Past Surgical History: Coronary artery bypass 2-vessels, back and knee surgery. Family History: No premature coronary artery disease. History of breast cancer in mother. Social History: Does not smoke or drink. Does not use any drugs. Review of Systems: All systems reviewed and negative except mentioned in the HPI. Physical Examination: Vital signs: Temperature is 98.4, pulse 57, breathing 19, blood pressure 137/74, satting 98% on 2 L. General: Pleasant elderly male, in no distress. Head and Neck: Pupils are equal, reactive to light. Intact eye movements. Mild JVD elevation. Lungs: Clear to auscultation. No accessory muscle use or muscle retraction. Heart: Irregularly irregular with a faint aortic systolic murmur and an S3. Abdomen: Soft, nontender. Bowel sounds positive. No organomegaly. . No rigidity or rebound. Extremities: More than 3+ pedal edema all the way to the knee level bilaterally. No clubbing, cyano sis. Skin: No rashes noted. Neuro: Alert, awake, oriented x3. No acute focal deficits appreciated Lymph nodes: No cervical lymphadenopathy. Investigations: His creatinine is 1.70. Troponin is 0.02. Hemoglobin is 11.6. Chest x-ray CHF solitario moseley. Assessment And Recommendations: 1.Acute on chronic diastolic heart failure exacerbation. Recommend Lasix 80 mg IV q.12 hours. Violetta tor BUN, creatinine, electrolytes, and urine output, daily weight. Low-salt diet. Please trend the cardiac enzymes and obtain an echocardiogram. 2.Hypertension. His blood pressure is acceptable. Continue home medications. 3.Atrial fibrillation. The patient's CHADS-VASc score is elevated. It is above 5 and not on antico agulation. The could be a candidate for LA appendage closure to be discussed at the later time post discharge. SR/MODL Voice ID: [id number] Report ID: [id number]
[2020-11-29] MEDS ORDERED: DIGOXIN 0.125 MG TABLET PO SCH ×3 (17:00→21:00)
[2020-11-30] MEDS: FUROSEMIDE 40 MG/4 ML VIAL IV SCH ×2 (00:02→11:03)
[2020-11-30 06:29] LABS: Absolute Lymphocytes (CBC) 0.7 K/uL (0.7-4.9); Basophils % 0.8 % (0-1.3); Hematocrit 35.4 % (39.6-49.0); Lymphocytes % 9.6 % (15.3-44.8); MPV 8.2 fL (7.6-11.3); RBC Red Blood Cell Count 3.86 M/uL (4.33-5.43)
[2020-11-30 06:46] LABS: Albumin 3.1 g/dL (3.4-5.0); Bilirubin Total 0.8 mg/dL (0.2-1.0); Magnesium 2.4 mg/dL (1.8-2.4); Potassium 4.4 mmol/L (3.5-5.1); Protein, Total 7.1 g/dL (6.4-8.2)
--- NOTE | 2020-11-30 09:55 | P.DS ---
Admission Date: 11/28/20 Discharge Date: 11/30/20 Primary Care Provider: Dr. Ballard, Cardiology-Dr. Ramirez Disposition: ROUTINE DISCHARGE Discharge Condition: GOOD Reason for Admission: CHF exacerbation Consultations: Cardiology-Dr. Garrison Nephrology-Dr. Short Procedures: COVID: Negative CXR: Medical Problem List: Dyspnea, edema to the lower extremities secondary to Acute on chronic diastolic congestive heart failure with bilateral pleural effusions Atrial fibrillation not on chronic anticoagulation therapy with previous cardioversion Severe CAD status post 2 vessel CABG Acute on chronic renal disease stage III Hypertension Hyperlipidemia History of CVA COPD Brief History of Present Illness: 80-year-old male with history of atrial fibrillation not on chronic anticoagulation with history of cardioversion, chronic diastolic congestive heart failure, CAD status post 2 vessel CABG with severe disease, hypertension, hyperlipidemia, suspected CKD presents emergency department for lower extremity swelling and shortness of breath. Patient reports over the course of the last 4-5 days he has noticed increased swelling to his lower extremities and increasing difficulty with breathing. Evaluation in the emergency department si gnificant for mild AKA on CKD creatinine currently 39 with baseline around 50. Chest x-ray significant for mild to moderate CHF elevated BNP 2218 troponin negative. On exam patient noted to have 3+ pitting edema bilateral lower extremities, having to sit up in the bed due to orthopnea, patient with significant dyspnea on exertion. Patient admitted for further evaluation and treatment. Hospital Course: Patient presented with dyspnea, edema to the lower extremities secondary to Acute on chronic diastolic congestive heart failure with bilateral pleural effusions. Patient was admitted for treatment. Aggressive IV diuretic therapy was given. Patient was also placed on fluid restriction. Previous echo reviewed with normal ejection fraction. Heart catheterization in April of 2020 noted. Recommendation was to continue medical management at that time. Patient has done well with diuresis. Patient seen by Cardiology. No intervention was required. At discharge per edema to the lower extremity significantly improved. No significant chest pain, shortness of breath. At discharge patient will continue with a 1500 cc per day fluid restriction and low-salt diet. Patient is to monitor his weight daily. If his weight increases by more than 5 lb he is to contact cardiology for further recommendation. At discharge new medication includes Lasix 80 mg 1 pill twice daily. Patient will no longer take Bumex. At discharge patient will also continue with Aldactone 25 mg daily. Patient will follow up with cardiology within 1-2 weeks to follow up this hospitalization. Further adjustment in medication can be done by his PCP or cardiology. Recommend to recheck lab-BMP in 1 week to monitor his progress. Prior to discharge will check to see if the patient qualifies for home oxygen. If so will arrange for home oxygen to be arranged to maintain sats above 93%. Patient with hypertension. Patient previously on losartan and Procardia. Due to his acute on chronic renal disease. Losartan was discontinued. Blood pressure stable with Procardia only at this time. At discharge will continue with Procardia XL 60 mg daily. No need for losartan medication at this time. Recommend to monitor blood pressure daily. Recommend to maintain blood pressure less than 130/80. If blood pressure remains above 140/90 is to contact his PCP or volunteer services coordinator for further recommendation. Patient with acute on chronic renal disease stage III. Patient was seen and evaluated by nephrology. Losartan was discontinued due to his acute on chronic renal disease. Recommend no further use of nonsteroidal anti-inflammatories need to be renally dose. Recommend to recheck lab-BMP in 1 week to monitor his progress. Recommend follow up with nephrology as an outpatient to establish care and follow-up his condition. Patient with hyperlipidemia. At discharge patient will continue with Lipitor 40 mg daily. Recommend to recheck fasting lipid panel in 4-6 weeks to monitor his progress. Further adjustment can be done by his PCP. Patient with history of CVA. At discharge patient will continue with aspirin 81 mg daily. Patient with underlying COPD. At discharge patient will continue with his current medications of Breo and Dulera. Will check to see patient qualifies for home oxygen prior to discharge. Recommend follow up with pulmonology to further monitor and adjust medication. Patient with history of atrial fibrillation not on chronic anti coagulation therapy. Patient with prior cardioversion. Patient was seen and evaluated by Cardiology. Patient with score slightly elevated. Patient will be a candidate for a LA appendage closure. This can be further evaluated and discuss with cardiology as an outpatient. Follow up with cardiology to further address. Vital Signs/Physical Exam: Temp Pulse Resp BP Pulse Ox 97.7 F 54 18 125/63 95 11/30/20 04:00 11/30/20 04:00 11/30/20 04:00 11/30/20 04:00 11/30/20 04:00 General: Alert, In no apparent distress, Oriented x3, Cooperative HEENT: Atraumatic Neck: Supple Respiratory: Clear to auscultation bilaterally, Normal air movement Cardiovascular: Normal pulses, Regular rate/rhythm Gastrointestinal: Normal bowel sounds, Soft and benign, Non-distended, No tenderness, No masses, No rebound, No guarding Integumentary: Tenderness/swelling (significant improvement with edema. Non pitting noted. ) Neurological: Normal speech, Normal strength at 5/5 x4 extr, Normal tone, Normal affect Laboratory Data at Discharge: WBC 7.30 K/uL (4.3-10.9) 11/30/20 05:18 Hgb 11.9 g/dL (13.6-17.9) L 11/30/20 05:18 Hct 35.4 % (39.6-49.0) L 11/30/20 05:18 Plt Count 249 K/uL (152-406) 11/30/20 05:18 PT 14.2 SECONDS (9.5-12.5) H 11/28/20 16:57 INR 1.23 11/28/20 16:57 Sodium 140 mmol/L (136-145) 11/30/20 05:18 Potassium 4.4 mmol/L (3.5-5.1) 11/30/20 05:18 BUN 24 mg/dL (7-18) H 11/30/20 05:18 Creatinine 1.49 mg/dL (0.55-1.3) H 11/30/20 05:18 Glucose 90 mg/dL (74-106) 11/30/20 05:18 Magnesium 2.4 mg/dL (1.8-2.4) 11/30/20 05:18 Total Bilirubin 0.8 mg/dL (0.2-1.0) 11/30/20 05:18 AST 18 U/L (15-37) 11/30/20 05:18 ALT 25 U/L (12-78) 11/30/20 05:18 Alkaline Phosphatase 188 U/L (45-117) H 11/30/20 05:18 Triglycerides 70 mg/dL (<150) 11/29/20 04:51 Cholesterol 86 mg/dL (<200) 11/29/20 04:51 HDL Cholesterol 40 mg/dL (40-60) 11/29/20 04:51 Cholesterol/HDL Ratio 2.15 11/29/20 04:51 Home Medications: Fluticasone/Vilanterol [Breo Ellipta 100-25 Mcg INH] 1 puff IH DAILY 07/27/20 Losartan Potassium [Cozaar] 1 tab PO DAILY 07/27/20 Aspirin [Aspirin EC 81 MG] 81 mg PO DAILY #30 tablet. 07/29/20 Atorvastatin Calcium [Lipitor] 40 mg PO BEDTIME #30 tab 07/29/20 Mometasone/Formoterol [Dulera 200 Mcg/5 Mcg Inhaler] 2 puff IH BID #1 inhaler 07/29/20 Nifedipine Xl [Procardia XL*] 60 mg PO DAILY #30 tab 07/29/20 Digoxin 125 mcg PO DAILY 11/28/20 Spironolactone [Aldactone*] 25 mg PO DAILY 11/28/20 Furosemide [Lasix] 80 mg PO BID #60 tablet 11/30/20 New Medications: Furosemide [Lasix] 80 mg PO BID #60 tablet Physician Discharge Instructions: Patient presented with dyspnea, edema to the lower extremities secondary to Acute on chronic diastolic congestive heart failure with bilateral pleural effusions. Patient was admitted for treatment. Aggressive IV diuretic therapy was given. Patient was also placed on fluid restriction. Previous echo reviewed with normal ejection fraction. Heart catheterization in April of 2020 noted. Recommendation was to continue medical management at that time. Patient has done well with diuresis. Patient seen by Cardiology. No intervention was required. At discharge per edema to the lower extremity significantly improved. No significant chest pain, shortness of breath. At discharge patient will continue with a 1500 cc per day fluid restriction and low-salt diet. Patient is to monitor his weight daily. If his weight increases by more than 5 lb he is to contact cardiology for further recommendation. At discharge new medication includes Lasix 80 mg 1 pill twice daily. Patient will no longer take Bumex. At discharge patient will also continue with Aldactone 25 mg daily. Patient will follow up with cardiology within 1-2 weeks to follow up this hospitalization. Further adjustment in medication can be done by his PCP or cardiology. Recommend to recheck lab-BMP in 1 week to monitor his progress. Prior to discharge will check to see if the patient qualifies for home oxygen. If so w ill arrange for home oxygen to be arranged to maintain sats above 93%. Patient with hypertension. Patient previously on losartan and Procardia. Due to his acute on chronic renal disease. Losartan was discontinued. Blood pressure stable with Procardia only at this time. At discharge will continue with Procardia XL 60 mg daily. No need for losartan medication at this time. Recommend to monitor blood pressure daily. Recommend to maintain blood pressure less than 130/80. If blood pressure remains above 140/90 is to contact his PCP or volunteer services coordinator for further recommendation. Patient with acute on chronic renal disease stage III. Patient was seen and evaluated by nephrology. Losartan was discontinued due to his acute on chronic renal disease. Recommend no further use of nonsteroidal anti-inflammatories need to be renally dose. Recommend to recheck lab-BMP in 1 week to monitor his progress. Recommend follow up with nephrology as an outpatient to establish care and follow-up his condition. Patient with hyperlipidemia. At discharge patient will continue with Lipitor 40 mg daily. Recommend to recheck fasting lipid panel in 4-6 weeks to monitor his progress. Further adjustment can be done by his PCP. Patient with history of CVA. At discharge patient will continue with aspirin 81 mg daily. Patient with underlying COPD. At discharge patient will continue with his curre nt medications of Breo and Dulera. Will check to see patient qualifies for home oxygen prior to discharge. Recommend follow up with pulmonology to further monitor and adjust medication. Patient with history of atrial fibrillation not on chronic anti coagulation therapy. Patient with prior cardioversion. Patient was seen and evaluated by Cardiology. Patient with score slightly elevated. Patient will be a candidate for a LA appendage closure. This can be further evaluated and discuss with cardiology as an outpatient. Follow up with cardiology to further address. Diet: AHA (1500 cc per day fluid restriction) Activity: Ad tiny Followup: Eriberto Ballard MD [Primary Care Provider] - Time spent managing pt's care (in minutes): 55
[2020-11-30 10:05] VITALS: O2SAT 99
[2020-11-30] MEDS: SPIRONOLACTONE 25 MG TABLET PO SCH (11:00)
[2020-11-30] MEDS: NIFEDIPINE XL 60 MG TABLET PO SCH (11:03)
[2020-11-30] MEDS: HEPARIN 5000 UNIT/ML 1 ML VIAL SQ SCH (11:03)
[2020-11-30] MEDS: ASPIRIN EC 81 MG TAB PO SCH (11:04)
--- NOTE | 2020-11-30 12:03 | RAD REPORT ---
EXAM DESCRIPTION: RAD - Chest Pa And Lat (2 Views) - 11/30/2020 7:20 am CLINICAL HISTORY: Follow up CHF Chest pain. COMPARISON: Chest Single View dated 11/28/2020; Chest Pa And Lat (2 Views) dated 07/28/2020; Chest Sing le View dated 07/27/2020; Chest Pa And Lat (2 Views) dated 04/29/2020 FINDINGS: Emphysematous changes are present throughout the lungs. Mild improvement in pulmonary kathryn a is seen since prior study. Trace right and small left pleural effusion again seen, unchanged. The h eart is mildly to moderately enlarged. Sternotomy wires are present. IMPRESSION: Mild improvement in CHF pattern since prior study.
[2020-11-30 12:37] VITALS: BP 135/60; TEMP 98
== END 2020-11-30 14:47 | disposition home or self-care (01) | DRG 291 ==
LOC: ER 13:56 → ERHOLD 19:16 → 2ND 21:53
PROVIDERS: ADMIT Family Medicine; ATTEND Family Medicine
DX: I13.0 Hypertensive heart and chronic kidney disease with heart failure and stage 1 through stage 4 chronic kidney disease, or unspecified chronic kidney disease (principal); I50.33 Acute on chronic diastolic (congestive) heart failure; N17.9 Acute kidney failure, unspecified; N18.30 Chronic kidney disease, stage 3 unspecified; I25.10 Atherosclerotic heart disease of native coronary artery without angina pectoris; I48.91 Unspecified atrial fibrillation; E78.5 Hyperlipidemia, unspecified; J44.9 Chronic obstructive pulmonary disease, unspecified; Z79.82 Long term (current) use of aspirin; Z79.899 Other long term (current) drug therapy; Z90.49 Acquired absence of other specified parts of digestive tract; Z86.73 Personal history of transient ischemic attack (TIA), and cerebral infarction without residual deficits; Z95.1 Presence of aortocoronary bypass graft; Z87.891 Personal history of nicotine dependence; Z20.822 Contact with and (suspected) exposure to COVID-19
CPT/HCPCS: 36415; 71045; 71046; 80048; 80053; 80061; 80076; 83735; 83880; 84439; 84443; 84484; 85025; 85610; 93005; 96374; 99285; J1644; J1940; J7606; U0003

== ENCOUNTER 2021-02-02 16:48 | Inpatient (IN) | payer OTHER ==
--- OUTSIDE RECORDS SUMMARY | 2021-02-02 16:56 | XMS REPORT | Continuity of Care Document ---
:1940 Author Organization [facility] t Address [address] [place] [address] Dr. Thomas. [address] [place] [address] Care Team Providers Name Role Phone Macy [...] Policy Type Policy Effective Date Expiration Date [facility] ce Number HUMANA [id number] 2018 [place] [facility] MEDICARE PPO/PFFS/ERS [id number] 2018 -PresentPPO Problems Condition Condition Condition Status Onset Resolution Last Treating Co mments Source Name Details Category Date Date Treatment Clinician Date Persistent Persistent Disease Active 2019-09 [place] atrial atrial 0-12 Method[facility] fibrillati fibrillati 00:00: st on on 00 FOLLOW UP Diagnosis Active 2017-02-18 Memoria 3-02 08:41:00 l FOLLOW 00:00: [place] UP 00 Active 11/25/201 7 [facility] AFIB Diagnosis Active 2016-01-02 Mem oria 12-28 08:40:00 l AFIB 00:00: [place] 00 Active 12/29/2015 [facility] CCL/*MAC Diagnosis Active 2015-12-31 M emoria ANESTHESIA 12-28 16:44:00 l */CARDIOVE CCL/*MAC 00:00: He rmann RSION/DX: ANESTHESIA 00 A */CARDIOVE RSION/DX: A Active 12/29/2015 [facility] LSA Diagnosis Active 2015-10-31 Mem oria 10-23 09:10:00 l LSA 00:00: [place] 00 Active 10/23/2015 [facility] HOSPITAL Diagnosis Active 2015-10-27 M emoria FOLLOW UP 10-22 09:16:00 l HOSPITAL 00:00: Maury n FOLLOW UP 00 Active 10/22/2015 [facility] A FIB Diagnosis Active 2015-10-23 [facility] oria 09-29 21:56:00 l A FIB 00:00: [place] 00 Active 09/29/2015 [facility] INTITAL Diagnosis Active 2014-092015-10-24 Me moria CONSULT 11-23 15:13:00 l INTITAL 00:00: [place] CONSULT 00 Active 09/22/2015 [facility] POST TPA Diagnosis Active 2014-092015-09-30 M emoria 11-20 14:48:00 l POST TPA 19:00: Maury n 00 Active 09/19/2015 [facility] CVA Diagnosis Active 2014-092015-09-19 [facility] oria 11-20 21:57:00 l CVA 19:00: [place] 00 Active 09/19/2015 [facility] ELLE Diagnosis Active 2014-092015-09-19 Memoria BILLING 11-20 21:54:00 l LFLT 00:00: [place] #[id number] ELLE 00 BILLING LFLT #6335-A Active 09/19/2015 [facility] Atrial Problem Resolve 2017-02-21 Adam whitney fibrillati d 00:05:27 l on Atrial [place] (disorder) fibrillati on (disorder) Resolved Problem 02/21/2017 [facility], [facility] Congestive Problem Resolve 2017-02-21 Memoria heart d 00:05:27 l failure [place] (disorder) Congestive heart failure (disorder) Resolved Problem 02/21/2017 [facility], [facility] Chronic Problem Resolve 2017-02-21 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:27 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) Resolved Problem 02/21/2017 [facility], [facility] Diabetes Problem Resolve 2017-02-21 Me moria mellitus d 00:05:27 l (disorder) Diabetes He rmann mellitus (disorder) Resolved Problem 02/21/2017 [facility], [facility] Hypertensi Problem Resolve 2017-02-21 Memoria ve d 00:05:27 l disorder, [place] systemic Hypertensi arterial ve (disorder) disorder, systemic arterial (disorder) Resolved Problem 02/21/2017 [facility], [facility] Cerebrovas Problem Resolve 2017-02-21 Memoria cular d 00:05:27 l accident [place] (disorder) Cerebrovas cular accident (disorder) Resolved Problem 02/21/2017 [facility], [facility]TINA [facility] S/P ADMN Diagnosis Active 2015-09-30 M emoria TPA IN 14:48:00 l DIFF FAC S/P ADMN Herm napoleon W/N LAST TPA IN 24 HR DIFF FAC W/N LAST 24 HR Active [facility] MEDICAL Diagnosis Active 2016-01-29 Me moria SERVICES 12:31:00 l NOT MEDICAL [place] AVAILABLE SERVICES IN HOME NOT AVAILABLE IN HOME Active [facility] UNSPECIFIE Diagnosis Active 2015-10-23 Memoria D ATRIAL 21:56:00 l FIBRILLATI Maury n ON UNSPECIFIE D ATRIAL FIBRILLATI ON Active [facility] ENCNTR FOR Diagnosis Active 2017-02-18 Memoria GENERAL 08:41:00 l ADULT ENCNTR [place] MEDICAL FOR EXAM W/ GENERAL ADULT MEDICAL EXAM W/ Active [facility] Allergies, Adverse Reactions, Alerts This patient has no known allergies or adverse reactions. Social History Social Habit Start Date Stop Date Quantity Comments Source Cigarettes smoked 2020-07-11 2020-07-11 Musa Blandon current (pack per 00:00:00 00:00:00 day) - Reported Cigarette 2020-07-11 2020-07-11 [facility] ist pack-years 00:00:00 00:00:00 Tobacco use and 2020-07-11 2020-07-11 Never used Musa Beranl ethodist exposure 00:00:00 00:00:00 Alcohol intake 2020-07-11 2020-07-11 Current drinker [place] 00:00:00 00:00:00 of alcohol (finding) Tobacco Comment 2020 2020 Qick about 45yrs Nayeli ston [facility] 00:00:00 00:00:00 ago Alcohol Comment 2020 2020 a week Musa Bernal ethodist 00:00:00 00:00:00 Sex [birth year] At [birth year] Musa Bernal ethodist 00:00:00 00:00:00 Smoking Status Start Date Stop Date Source Former smoker 2020-07-11 00:00:00 2020-07-11 00:00:00 Musa Blandon Social History [facility] Medications Ordered Filled Start Stop Current Ordering [...] 2020- No 200mg QD Take 0.5 H [place] (PACERONE) 0-12 11-11 tablets Metho di 400 [...] [Bystolic] 00 90 tab, 3 Refill(s), Pharmacy: [facility] #[id number] atorvastati Yes 40 mg = 1 M emoria n 40 mg 1-27 tab, PO, l oral tablet 21:39: Bedtime, # [place] 42 90 tab, 3 Refill(s), Pharmacy: [facility] #[id number] 24 HR Yes 60 mg = 1 Memoria Nifedipine 1-27 tab, PO, l 60 MG 21:39: Daily, # [place] Extended 41 90 tab, 3 Release Refill(s), Tablet Pharmacy: [facility] #[id number] bumetanide Yes 2 mg = 4 Mem oria 0.5 mg oral 1-27 tab, PO, l tablet 21:39: BID, # 240 Danette nn 39 tab, 6 Refill(s), Pharmacy: [facility] cy #[id number], Patient is due for follow up appointmen t Potassium 2015- Yes 20 mEq = 1 Me moria Chloride 20 7-20 tab, PO, l MEQ 21:11: BID, # 180 [place] Extended 00 tab, 3 Release Refill(s), Tablet Pharmacy: [id number] bumetanide Yes 2 mg = 4 Mem oria 0.5 mg oral 5-31 tab, PO, l tablet 14:03: BID, [place] 07 patient is due for follow up appointmen t, # 240 tab, 6 Refill(s), Pharmacy: [facility] #[id number], Patient is due for follow up appointmen t bumetanide Yes 2 mg = 4 Mem oria 0.5 mg oral 4-19 tab, PO, l tablet 22:20: BID, [place] 00 patient is due for follow up appointmen t, # 240 tab, 0 Refill(s), Pharmacy: [facility] #[id number], Patient is due for follow up [...] tab, PO, l Tablet 14:14: Daily, 0 [place] [Bystolic] 00 Refill(s) Sucralfate Yes 1 gm = 10 Me moria 100 MG/ML 4-08 mL, PO, l Oral 14:14: QID-Before [place] Suspension 00 Meals, 0 [Carafate] Refill(s) bumetanide Yes 1 mg = 2 Mem oria 0.5 mg oral 4-08 tab, PO, l tablet 14:14: BID, 0 Turner 00 Refill(s) bumetanide Yes 1 mg = 2 Mem oria 0.5 mg oral 2-03 tab, PO, l tablet 17:41: BID [place] Potassium Yes 20 mEq = 1 Me [...] PO, l 60 MG 20:44: Daily, # [place] Extended 00 90 tab, 3 Release Refill(s) Tablet nebivolol 5 Yes 5 mg = 1 Me moria mg oral 1-25 tab, PO, l tablet 20:44: Daily, # [place] 00 90 tab, 3 Refill(s) Metolazone No 2.5 mg = 1 M emoria 2.5 MG Oral 1-25 tab, PO, l Tablet 20:44: Q-M--, # Danette nn 00 90 tab, 3 [...] tab, PO, l tablet 16:24: BID, 0 [place] 00 Refill(s) AMIODarone No 200 mg = 1 M emoria 200 mg oral 1-25 tab, PO, l tablet 16:24: BID, 0 [place] 00 Refill(s) potassium No 10 mEq = [...] PO, l 60 MG 16:24: Daily, 0 [place] Extended 00 Refill(s) Release Tablet Metolazone No 2.5 mg = 1 M emoria 2.5 MG Oral 1-25 tab, PO, l Tablet 16:24: Q-M-W-F, 0 Danette nn Refill(s) Metolazone No Notes: Memor ia 2.5 MG Oral 1-25 (Same as: l Tablet 15:00: Zaroxolyn) Danette nn 00 Bumex No Notes: Memoria 1-25 (Same As: l 13:00: Bumex) [place] 00 Diuril No Notes: Memoria 1-24 (Same As: l 16:33: Diuril Turner 00 Sodium) Diuril No 250 mg, Memoria 1-24 Route: PO, l 00:30: ONCE, [place] Dosing Weight 101.007, kg, Start date: 10/18/15 [...] bumetanide No Notes: Memor ia 10 mg 1-22 (Same as: l 22:30: Bumex) [place] 00 Venofer No Notes: Memoria 1-19 Each 5ml l 22:00: contains [place] 100mg elemental iron. Mix with NS (Same as:Venofer ) Administer IV only. MEDICATION WASTE Product Size: 100 mg Product Wasted: ___ mg Aspirin No Notes: Do Memor ia 1-19 not crush l 15:00: or chew. [place] 00 (Same As: Ecotrin) heparin No Notes: Memoria 1-18 porcine l 20:00: heparin [place] 00 potassium No Notes: Memori a phosphate + 1-18 (Same as: l Sodium 17:41: K [place] Chloride 00 Phosphate. 0.9% IV 250 ) 1 mMol mL phoshate has 1.47 mEq potassium Infuse over 4 hours potassium 0 No Notes: Memori a phosphate-s 1-18 (Same as: l odium 17:41: Neutra-Stephanie Maury n phosphate 00 s) Each 250 mg-278 1.25 gm mg-164 mg pkt has oral powder 250mg phosphorou s. Mix w/2.5oz water and stir. potassium No Notes: Memori a chloride 1-18 (Same as: l 17:41: KCL) [place] 00 Infuse over 2 hours. Magnesium 2016-0 No 2 gm, 50 Adam whitney Sulfate 1-18 mL, Route: l 17:41: IVPB, Drug [place] 00 form: INJ, PRN, Dosing Weight 101.007, kg, PRN Abnormal Lab Result, For NON-ICU Patients Only., Start date: 10/13/15 11:41:00, Duration: 30 day, Stop date: 11/12/15 11:40:00 sodium 2016- No 30 mmol, Memoria phosphate + 1-18 10 mL, l Sodium 17:41: Route: [place] Chloride 00 IVPB, PRN, 0.9% IV 250 Dosing mL Weight 101.007, kg, PRN Abnormal Lab Result, For NON-ICU Patients Only., Start date: 10/13/15 11:41:00, Duration: 30 day, Stop date: 11/12/15 11:40:00 Calcium 2016-0 No 2 gm, 20 Memori a Gluconate 1-18 mL, Route: l 17:41: IVPB, PRN, [place] Dosing Weight 101.007, kg, PRN Abnormal Lab Result, For NON-ICU Patients Only., Start date: 10/13/15 11:41:00, Duration: 30 day, Stop date: 11/12/15 11:40:00 Magnesium 2015- No Notes: Memori a Oxide 1-18 (Same as: l 17:41: Mag-Ox [place] 00 400) Magnesium oxide 922sm=668e g elemental magnesium Dose=____m g magnesium oxide (___mg elemental magnesium) bumetanide No Notes: Memor ia 10 mg 1-18 (Same as: l 17:40: Bumex) [place] 00 Trazodone No Notes: Memori a 1-17 (Same As: l 12:53: Desyrel) [place] 00 Melatonin 3 No Notes: Adam whitney MG Extended -17 (Same as: l Release 06:51: Melatonin) Herm napoleon Tablet 00 Lasix No Notes: Memoria 1-16 (Same as: l 15:00: Lasix) [place] 00 MEDICATION WASTE Product Size: 40 mg Product Wasted: ___ mg Maalox No Notes: Memoria Advanced 1-16 (aluminum l Regular 15:00: hydroxide- Herm napoleon Strength 00 magnesium SUSP hyd-simeth icone 200-200-20 mg/5ml 30 ml ud ALEISHA) Fentanyl No Notes: Memoria 1-16 (Same as: l 12:57: Sublimaze) [place] Preservat javi free. Lasix No Notes: Memoria 1-14 (Same as: l 19:00: Lasix) [place] 00 MEDICATION WASTE Product Size: 40 mg Product Wasted: ___ mg Miralax No Notes: Memoria 1-13 Dissolve l 15:00: in 8 oz of [place] 00 water or juice. (Same as: Miralax) Bystolic No Notes: Memoria 1-13 (same as: l 15:00: Bystolic) [place] 00 Potassium No Notes: Memori a Chloride [...] Memoria 1-13 (Same as: l 15:00: Lasix) [place] 00 MEDICATION WASTE Product Size: 40 mg Product Wasted: _0__ mg molasses No Notes: Memoria 1-13 (Same l 14:32: as:Molasse [place] 00 s) Simethicone No Notes: Adam whitney 1-12 (Same as: l 23:31: Mylicon) [place] Dulcolax No Notes: Memoria Laxative 1-12 (Same As: l 19:08: Dulcolax, [place] 00 Bisco-Lax) Bystolic No Notes: Memoria 1-12 (same as: l 19:07: Bystolic) [place] Magnesium No Notes: Memori a Oxide -12 (Same as: l 12:45: Mag-Ox [place] 400) Magnesium oxide 568rn=558d g elemental magnesium Dose=____m g magnesium oxide (___mg elemental magnesium) potassium No Notes: Memori a chloride 1-12 (Same as: l 12:44: K-Dur 20) "Do [...] Bisco-Lax) potassium No Notes: Memori a chloride 1-09 (Same as: l 12:46: K-Dur 20) "Do Not Crush" With food and full glass of water Simethicone No Notes: Adam whitney 1-09 (Same as: l 08:54: Mylicon) Amiodarone No Notes: Memor ia 1-08 (Same as: l 23:00: Cordarone) carvedilol No Notes: Memor ia 10-03 Give with l 17:32: food. [place] 00 (Same As: Coreg) Acetaminoph No Notes: Do M emoria en 325 MG / 10-02 not exceed l Hydrocodone 19:35: 4gm/day of [place] Bitartrate 00 acetaminop 10 MG Oral hen. Tablet (Same as: [Kellogg Kellogg 10/325] 325/10) senna 8.6 No Notes: Memori [...] Chloride 10-01 1000 l 0.154 19:41: ml/hr, [place] MEQ/ML 00 Infuse Injectable Over: 0.5 Solution [...] (Same as: l MG Oral 15:00: Colace) [place] Capsule (Do Not [Colace] Crush) Aspirin 325 No Notes: Adam whitney MG Enteric 10-01 Take with l Coated 15:00: food. [place] Tablet Aspirin 300 No Notes: Adam whitney MG Rectal 10-01 Refrigerat l Suppository 15:00: e. Maury n 00 Dopamine No Notes: Memoria 10-01 (Same as: l 14:41: Intropin) [place] Administer by either central venous catheter or peripheral ly-inserte d central catheter (PICC) line. Final conc = 3.2 mg/ml. Premix solution. sodium No Notes: Memoria bicarbonate 10-01 (sodium l 8.4% 10:38: bicarb [place] 00 8.4% (1 mEq/ml) 50 ml VL) Sodium No 1,000 mL, Memori a Chloride 10-01 1,000 l 0.154 07:52: ml/hr, Turner MEQ/ML 00 Infuse Injectable Over: 1 Solution hr, Route: IV, 1,000, Drug form: INJ, ONCE, Priority: STAT, Dosing Weight 97.273 kg, Start date: 10/01/15 1:52:00, Duration: 1 doses or times, Stop date: 10/01/15 1:52:00 sodium No Notes: Memoria bicarbonate 10-01 (sodium l 8.4% 06:57: bicarb [place] 00 8.4% (1 mEq/ml) 50 ml VL) Dexmedetomi No Notes: Adam whitney dine 10-01 (Same as: l 05:16: Precedex) [place] calcium No 3,000 mg, Memor ia gluconate + 10-01 30 mL, l Sodium 04:41: Route: [place] Chloride 00 IVPB, 0.9% IV 100 ONCE, mL Start date: 09/30/15 22:41:00, Stop date: 09/30/15 22:41:00 ceFAZolin No Notes: Memori a (SCIP) 10-01 Same as: l 03:30: Ancef [place] sodium No Notes: Memoria bicarbonate 10-01 (sodium l 8.4% 03:09: bicarb [place] 00 8.4% (1 mEq/ml) 50 ml VL) atorvastati No Notes: Adam whitney n -06 (Same as: l 03:00: Lipitor) [place] 00 Vancomycin No 2000 mg: Me moria [...] or times, Stop date: 09/30/15 19:47:00 Neutra-Phos 2015- No Notes: Adam whitney -06 (Same as: l 01:44: Neutra-Stephanie [place] 00 s) Each 1.25 gm pkt has 250mg phosphorou s. Mix w/2.5oz water and stir. Magnesium No 2 gm, 50 Adam whitney Sulfate 1-06 mL, Route: l 01:44: IVPB, Drug [place] 00 form: INJ, PRN, Dosing Weight 97.273, kg, PRN Abnormal Lab Result, Start date: 09/30/15 19:44:00, Duration: 30 day, Stop date: 10/30/15 19:43:00, FOR ICU USE ONLY sodium 0 No 15 mmol, 5 Memor ia phosphate + 1-06 mL, Route: l Sodium 01:44: IVPB, PRN, Danette nn Chloride 00 Dosing 0.9% IV 250 Weight mL 97.273, kg, PRN Abnormal Lab Result, Start date: 09/30/15 19:44:00, Duration: 30 day, Stop date: 10/30/15 19:43:00, FOR ICU USE ONLY potassium 0 No Notes: Memori a chloride -06 (Same as: l 01:44: Potassium [place] 00 Chloride) Calcium 2016-0 No 1 gm, 10 Memori a Gluconate 1-06 mL, Route: l 01:44: IVPB, PRN, [place] 00 Dosing Weight 97.273, kg, PRN Abnormal Lab Result, Start date: 09/30/15 19:44:00, Duration: 30 day, Stop date: 10/30/15 19:43:00, FOR ICU USE ONLY Magnesium No Notes: Memori a Oxide -06 (Same as: l 01:44: Mag-Ox [place] 00 400) Magnesium oxide 679vp=518d g elemental magnesium Dose=____m g magnesium oxide (___mg elemental magnesium) Calcium No Notes: Memoria Carbonate -06 (Same As: l 500 MG 01:44: Tums) [place] Chewable 00 Calcium Tablet Carbonate 500 mg = 200 mg elemental calcium Dose = mg calcium carbonate ( mg elemental calcium) potassium No Notes: Memori a phosphate + -06 (Same as: l Sodium 01:44: K [place] Chloride 00 Phosphate. 0.9% IV 250 ) 1 mMol mL phoshate has 1.47 mEq potassium Infuse over 4 hours Glucagon No 1 mg, Memoria 1-06 Route: IM, l 01:43: Drug form: [place] PDR/INJ, PRN, Dosing Weight 97.273, kg, PRN Blood Glucose Results, Start date: 09/30/15 19:43:00, Duration: 30 day, Stop date: 10/30/15 19:42:00 Insulin No 60 Memoria regular -06 units) l 01:43: Stable for Turner 28 days at room temperatur e Expires [...] Memoria 1-06 microgram, l 00:34: 20 mL, [place] Rate: Titrate, Start Dose: 50 microgram/ hr, Titration: 25 microgram/ hour every 15 minutes, Goal(s): RASS (0) to (-2), Max Dose: 300 microgram/ hr, Route: IV, Dosing Weight 97.273 kg, Total Volume: 20, Start date: 09/30/15 18:34:... Fentanyl No Notes: Memoria - Concentrat l 00:00: ion is 20 [place] 00 micrograms /ml Naloxone No Notes: Memoria 09-30 Same as l 23:40: Narcan [place] Ondansetron No Notes: Adam whitney 0.8 MG/ML 09-30 (Same as: l Oral 23:40: Zofran) [place] Solution 00 [Zofran] Acetaminoph No Notes: Do M emoria en 325 MG / -05 not exceed l Hydrocodone 23:40: 4gm/day of [place] Bitartrate 00 acetaminop 10 MG Oral hen. Tablet (Same as: Kellogg 325/10) Fentanyl No Notes: Memoria 09-30 (Same as: l 23:40: Sublimaze) Preservat javi free. Acetaminoph No Notes: Do M emoria en -05 not exceed l 23:40: 4 gm/day. [place] (Same as: Tylenol) protamine No Route: IV, Me moria (ANES) 09-30 Drug form: l 22:31: INJ, ONCE, [place] 00 Stop date: 09/30/15 16:31:00 DOPamine No Route: IV, Mem oria (ANES) 05 Drug form: l (ANES) 22:10: INJ, Start Danette nn 00 date: 09/30/15 16:10:00, Stop date: 09/30/15 17:10:00 acetaminoph No Route: IV, Memoria en (ANES) 09-30 Drug form: l (ANES) 21:40: INJ, Start Danette nn 00 date: 09/30/15 15:40:00, Stop date: 09/30/15 16:40:00 Ancef No 1 gm, Memoria 1-05 Route: l 19:24: IVPB, [place] 00 ONCE, Dosing Weight 97.273, kg, Start date: 09/30/15 13:24:00, Duration: 1 doses or times, Stop date: 09/30/15 13:24:00, Surgical Prophylaxi s Only; For patients < 120 kg midazolam No Route: IV, Me moria (ANES) 1 Drug form: l 18:10: SOLN, [place] 00 ONCE, Stop date: 09/30/15 12:10:00 heparin No Route: IV, Adam whitney (ANES) 09-30 Drug form: l 18:00: INJ, ONCE, [place] Stop date: 09/30/15 12:00:00 niCARdipine No Route: IV, Memoria (ANES) + 09-30 Drug form: l sodium 18:00: INJ, ONCE, Danette nn chloride 00 Stop date: (ANES) 09/30/15 (ANES) 12:00:00 tranexamic No Route: IV, M emoria acid (ANES) 1-05 Drug form: l 17:25: INJ, ONCE, [place] Stop date: 09/30/15 11:25:00 ceFAZolin No Route: IV, Me moria (ANES) 1-05 Drug form: l 17:25: INJ, ONCE, [place] Stop date: 09/30/15 11:25:00 lidocaine No Route: IV, Me moria (ANES) 1-05 Drug form: l 17:05: INJ, ONCE, Turner Stop date: 09/30/15 11:05:00 propofol No Route: IV, Mem oria (ANES) 1-05 Drug form: l 16:55: INJ, ONCE, [place] Stop date: 09/30/15 10:55:00 rocuronium No Route: IV, M emoria (ANES) 1-05 Drug form: l 16:10: INJ, ONCE, [place] Stop date: 09/30/15 10:10:00 fentaNYL 2015- No Route: IV, Mem oria (ANES) 1-05 Drug form: l 16:05: INJ, ONCE, [place] 00 Stop date: 09/30/15 10:05:00 cefepime No Route: IV, Mem oria (ANES) 1-05 Drug form: l 16:00: INJ, ONCE, Stop date: 09/30/15 10:00:00 dexmedetomi No Route: IV, Memoria dine (ANES) 1- Drug form: l (ANES) 15:48: INJ, Start Danette date: 09/30/15 9:48:00, Stop date: 09/30/15 10:48:00 ropivacaine No Notes: Adam whitney 400 mL 1-05 Final l 15:47: concentrat [place] 00 ion: Ropivacain e 0.2% 400 ml ropivacaine No Notes: Adam whitney 400 mL 1-05 Final l 15:46: concentrat [place] 00 ion: Ropivacain e 0.2% 400 ml [...] Memoria 1-05 (Same as: l 15:00: Cozaar) [place] 00 Aspirin No Notes: Memoria 1-05 Take with l 15:00: food. [place] 00 PlasmaLyte No Route: IV, M emoria A PH-7.4 -05 Total l (ANES) 14:20: Volume: [place] (ANES) 00 1,000, Start date: 09/30/15 8:20:00, Stop date: 09/30/15 9:20:00 Clonidine No Notes: Memori a Hydrochlori 1-05 (Same As: l de 0.1 MG 04:00: Catapres) Her contreras Oral Tablet 00 atorvastati No Notes: Adam whitney n 1-05 (Same As: l 03:00: Lipitor) [place] Magnesium No 2 gm, 50 Adam whitney Sulfate 1-05 mL, Route: l 01:19: IVPB, Drug [place] 00 form: INJ, PRN, Dosing Weight 97.273, [...] Oxide 1-05 (Same as: l 01:19: Mag-Ox [place] 00 400) Magnesium oxide 184ln=443t g elemental magnesium Dose=____m g magnesium oxide (___mg elemental magnesium) potassium No Notes: Memori a phosphate + 1-05 (Same as: l Sodium 01:19: K [place] Chloride 00 Phosphate. 0.9% IV 250 ) [...] chloride 1-05 (Same as: l 01:19: KCL) [place] 00 Infuse over 2 hours. potassium No Notes: Memori a phosphate-s -05 (Same as: l odium 01:19: Neutra-Stephanie Maury [...] / 1-05 (Same as: l Hydrocodone 01:19: Kellogg Danette nn Bitartrate 00 325/5) Do 5 MG Oral not exceed Tablet 4gm/day of acetaminop hen. Ondansetron No Notes: Adam whitney 1-05 (Same as: l 01:19: Zofran) [place] 00 MEDICATION WASTE Product Size: 4 mg Product Wasted: ___ mg Sodium No 250 mL, Memoria Chloride -04 250 ml/hr, l 0.154 22:49: Infuse [place] MEQ/ML 00 Over: 1 Injectable hr, Route: Solution IV, 250, Drug form: INJ, ONCE, Priority: Routine, Dosing Weight 97.818 kg, Start date: 09/29/15 16:49:00, Duration: 1 doses or times, Stop date: 09/29/15 16:49:00 Sodium 2015- No 250 mL, Memoria Chloride 09-29 Rate: On l 0.9% 21:28: call for [place] (titrate) 00 use with 250 mL blood [...] Notes: Memoria - (same l 21:33: as:Omnipaq [place] 00 ue 350). atorvastati 2014-09 Yes 20 mg = 1 M emoria n 20 mg 2-28 tab, PO, l oral tablet 19:31: Bedtime, # [place] 00 30 tab, 2 Refill(s) Physical 2014-09 Yes See Memoria Therapy 11-23 Instructio l 18:43: ns, [facility], [place] 00 ONCALL, Evaluate and Treat _3__ times per week for __10__ weeks, # 30 unit, 0 Refill(s) Potassium 2014-09 No 40 mEq, 2 Mem oria Chloride 20 2-28 tab, l MEQ 13:35: Route: PO, [place] Extended 00 Drug form: Release ERTAB, Tablet [...] a 2-27 (Same As: l 19:45: Demadex) [place] 00 24 HR 2014-09 No Notes: Memoria [...] as: l 1.33 MEQ/ML 13:29: Potassium H Oral Chloride) Solution Losartan 2014-09 No Notes: Memoria 2-27 (Same as: l 10:11: Cozaar) [place] Bystolic 2014-09 No Notes: Memoria 2-27 (same as: l 10:10: Bystolic) 24 HR 2014-09 No 90 mg, 1 [...] tab, PO, l Tablet 03:07: Daily, # [place] [Bystolic] 00 60 tab, 0 Refill(s) 24 HR 2014-09 Yes 90 mg = 1 Memoria Nifedipine 2-27 tab, PO, l 90 MG 03:07: Daily, # [place] Extended 00 30 tab, 0 Release Refill(s) Tablet Potassium 2014-09 Yes 20 mEq = 1 Me moria Chloride 20 2-27 tab, PO, l MEQ 03:07: BID, # 60 [place] Extended 00 tab, 0 Release Refill(s) Tablet [...] tab, PO, l tablet 18:12: Daily, # [place] 00 30 tab, 0 Refill(s) Metformin 2014-09 [...] Memoria Flush 0.9% - (Same as: l 15:00: BD [place] 00 Posiflush) Docusate 2014-09 No Notes: Memoria 2-26 (Same as: l 15:00: Colace) [place] 00 (Do Not Crush) sennosides, 2014-09 No Notes: Adam whitney RESIDENTIAL 2-26 (Same as: l 15:00: Senokot) [place] 00 potassium 2014-09 No Notes: Memori a [...] a 2-26 Route: IV, l 03:53: ONCE, [place] 00 Dosing Weight 100, kg, For Stroke [...] 0.9% 2-26 (Same as: l 03:50: BD [place] 00 Posiflush) Acetaminoph 2014-09 No Notes: Do M emoria en 11-21 not exceed l 03:50: 4 gm/day. [place] 00 (Same as: Tylenol) Ondansetron 2014-09 No Notes: Adam whitney 11-21 (Same as: l 03:50: Zofran) MEDICATION WASTE Product Size: 4 mg Product Wasted: __0_ mg Nicardipine 2014-09 No Notes: Adam whitnye - Same as: l 03:50: Cardene Turner 00 Concentrat ion: (0.2 mg /1 ml ) Labetalol 2014-09 No 105 mmHg, Me moria 11-21 Priority: l 03:50: Routine, [place] 00 Start date: 09/19/15 21:50:00, Duration: 30 [...] 0.9% - Same as: l 02:57: BD [place] 00 Posiflush Sterile Vital Signs Vital Name Observation Time Observation Value Comments Source Systolic blood 2020-07-07 08:35:00 154 mm[Hg] Efrem n [facility] pressure Diastolic blood 2020-07-07 08:35:00 87 mm[Hg] Becky on [facility] pressure Heart rate 2020-07-07 08:35:00 73 /min Musa Blandon Respiratory rate 2020-07-07 08:35:00 21 /min Jarod perez [facility] Oxygen saturation in 2020-07-07 08:35:00 95 /min Musa Blandon Arterial blood by Pulse oximetry Body height 2020-07-07 06:18:00 185.4 cm [place] [facility] Body weight 2020-07-07 06:18:00 86.637 kg [place] [facility] BMI 2020-07-07 06:18:00 25.20 kg/m2 [place] [facility] Body temperature 2020-07-07 05:56:00 36.06 [place] [facility] Heart Rate 2017-02-18 13:49:00 [facility] Height 2017-02-18 13:49:00 179.58 cm [facility] BMI Calculated 2017-02-18 13:49:00 [facility] [place] Weight 2017-02-18 13:49:00 [facility] Systolic (mm Hg) 2017-02-18 13:49:00 [facility] [place] Diastolic (mm Hg) 2017-02-18 13:49:00 [facility] Temperature Oral (F) 2016-02-20 15:06:00 98.1 F [facility] BMI Calculated 2016-02-20 15:06:00 [facility] [place] Weight 2016-02-20 15:06:00 [facility] Height 2016-02-20 15:06:00 185.42 cm [facility] Systolic (mm Hg) 2016-02-20 15:06:00 [facility] Diastolic (mm Hg) 2016-02-20 15:06:00 [facility] [place] Respitory Rate 2016-02-20 15:06:00 [facility] [place] Heart Rate 2016-02-20 15:06:00 [facility] Height 2016-01-29 19:21:00 185.42 cm [facility] Weight 2016-01-29 19:21:00 [facility] BMI Calculated 2016-01-29 19:21:00 [facility] Systolic (mm Hg) 2016-01-29 19:21:00 [facility] [place] Diastolic (mm Hg) 2016-01-29 19:21:00 [facility] Temperature Oral (F) 2016-01-29 19:21:00 97.6 F [facility] Respitory Rate 2016-01-29 19:21:00 [facility] Heart Rate 2016-01-29 19:21:00 [facility] Respitory Rate 2016-01-02 16:30:00 [facility] Systolic (mm Hg) 2016-01-02 16:30:00 [facility] Diastolic (mm Hg) 2016-01-02 16:30:00 [facility] [place] Respitory Rate 2016-01-02 16:15:00 [facility] Systolic (mm Hg) 2016-01-02 16:15:00 [facility] Diastolic (mm Hg) 2016-01-02 16:15:00 [facility] [place] Respitory Rate 2016-01-02 16:00:00 [facility] Systolic (mm Hg) 2016-01-02 16:00:00 [facility] [place] Diastolic (mm Hg) 2016-01-02 16:00:00 [facility] BMI Calculated 2016-01-02 15:33:00 [facility] Weight 2016-01-02 15:33:00 [facility] Height 2016-01-02 15:33:00 177.8 cm [facility] Temperature Oral (F) 2016-01-02 14:00:00 98.6 F [facility] Weight 2015-11-14 21:05:00 [facility] BMI Calculated 2015-11-14 21:05:00 [facility] [place] Height 2015-11-14 21:05:00 185.42 cm [facility] Respitory Rate 2015-11-14 21:05:00 [facility] Heart Rate 2015-11-14 21:05:00 [facility] Temperature Oral (F) 2015-11-14 21:05:00 97.6 F [facility] Systolic (mm Hg) 2015-11-14 21:05:00 [facility] [place] Diastolic (mm Hg) 2015-11-14 21:05:00 [facility] BMI Calculated 2015-10-29 19:35:00 [facility] [place] Weight 2015-10-29 19:35:00 [facility] Systolic (mm Hg) 2015-10-29 19:35:00 [facility] Diastolic (mm Hg) 2015-10-29 19:35:00 [facility] Heart Rate 2015-10-29 19:35:00 [facility] Respitory Rate 2015-10-29 19:35:00 [facility] [place] Temperature Oral (F) 2015-10-29 19:35:00 97.0 F [facility] Height 2015-10-29 19:35:00 185.4 cm [facility] Temperature Oral (F) 2015-10-29 17:39:00 97.0 F [facility] Respitory Rate 2015-10-29 17:39:00 [facility] [place] Heart Rate 2015-10-29 17:39:00 [facility] Systolic (mm Hg) 2015-10-29 17:39:00 [facility] [place] Diastolic (mm Hg) 2015-10-29 17:39:00 [facility] [place] BMI Calculated 2015-10-29 17:39:00 [facility] [place] Weight 2015-10-29 17:39:00 [facility] Height 2015-10-29 17:39:00 185.4 cm [facility] Weight 2015-10-22 23:03:00 [facility] BMI Calculated 2015-10-22 23:03:00 [facility] Height 2015-10-22 23:03:00 185.42 cm [facility] Systolic (mm Hg) 2015-10-22 23:03:00 [facility] Diastolic (mm Hg) 2015-10-22 23:03:00 [facility] Heart Rate 2015-10-22 23:03:00 [facility] Temperature Oral (F) 2015-10-22 23:03:00 97.6 F [facility] Respitory Rate 2015-10-22 23:03:00 [facility] [place] Systolic (mm Hg) 2015-10-20 20:40:00 [facility] [place] Diastolic (mm Hg) 2015-10-20 20:40:00 [facility] Respitory Rate 2015-10-20 20:40:00 [facility] Respitory Rate 2015-10-20 18:00:00 [facility] Systolic (mm Hg) 2015-10-20 18:00:00 [facility] Diastolic (mm Hg) 2015-10-20 18:00:00 [facility] Systolic (mm Hg) 2015-10-20 16:00:00 [facility] [place] Diastolic (mm Hg) 2015-10-20 16:00:00 [facility] Respitory Rate 2015-10-20 16:00:00 [facility] Temperature Oral (F) 2015-10-20 10:00:00 98.6 F [facility] Temperature Oral (F) 2015-10-20 06:00:00 97.9 F [facility] Temperature Oral (F) 2015-10-20 02:08:00 98.7 F [facility] Weight 2015-10-09 10:58:00 [facility] Heart Rate 2015-10-02 04:00:00 [facility] Heart Rate 2015-10-02 03:45:00 [facility] Heart Rate 2015-10-02 03:30:00 [facility] Systolic (mm Hg) 2015-09-29 23:22:00 [facility] Diastolic (mm Hg) 2015-09-29 23:22:00 [facility] [place] Height 2015-09-29 23:22:00 185.42 cm [facility] BMI Calculated 2015-09-29 23:22:00 [facility] Weight 2015-09-29 23:22:00 [facility] Temperature Oral (F) 2015-09-29 23:22:00 98.7 F [facility] Heart Rate 2015-09-29 23:22:00 [facility] BMI Calculated 2015-09-29 22:40:00 [facility] Weight 2015-09-29 22:40:00 [facility] Height 2015-09-29 22:40:00 185.42 cm [facility] Systolic (mm Hg) 2015-09-22 23:50:00 [facility] Diastolic (mm Hg) 2015-09-22 23:50:00 [facility] [place] Heart Rate 2015-09-22 23:50:00 [facility] Respitory Rate 2015-09-22 23:50:00 [facility] [place] Heart Rate 2015-09-22 18:20:00 [facility] Systolic (mm Hg) 2015-09-22 18:20:00 [facility] Diastolic (mm Hg) 2015-09-22 18:20:00 [facility] [place] Respitory Rate 2015-09-22 18:20:00 [facility] Systolic (mm Hg) 2015-09-22 17:20:00 [facility] [place] Diastolic (mm Hg) 2015-09-22 17:20:00 [facility] Respitory Rate 2015-09-22 14:00:00 [facility] Heart Rate 2015-09-20 09:54:00 [facility] Weight 2015-09-20 05:44:00 [facility] BMI Calculated 2015-09-20 05:44:00 [facility] [place] Height 2015-09-20 05:44:00 185.42 cm [facility] Temperature Oral (F) 2015-09-20 03:24:00 96.7 F [facility] Weight 2015-09-20 02:45:00 [facility] BMI Calculated 2015-09-20 02:45:00 [facility] Height 2015-09-20 02:45:00 185.42 cm [facility] Procedures Procedure Date / Time Performed Performing Clinician Sourc e ECG 12-LEAD 2020-07-07 08:09:46 Osbaldo Casey EP CARDIOVERSION 2020-07-07 08:05:20 Osbaldo Casey ESTIMATED GFR 2020-07-07 06:39:00 Osbaldo Casey odist POC PANEL 2020-07-07 06:39:00 Osbaldo Casey ECG PRE/POST OP 2020-07-07 05:49:19 Osbaldo Casey MAGNESIUM LEVEL 2020-07-03 10:59:00 Osbaldo Casey PROTHROMBIN TIME WITH INR 2020-07-03 10:59:00 Osbaldo Casey HC COMPLETE BLD COUNT 2020-07-03 10:59:00 Osbaldo Casey W/AUTO DIFF COMPREHENSIVE METABOLIC 2020-07-03 10:59:00 Osbaldo Casey [facility] PANEL ESTIMATED GFR 2020-07-03 10:59:00 Osbaldo Casey COVID-19 QUALITATIVE PCR 2020-07-03 10:50:00 Osbaldo Casey CV CTA CORONARY PRE AFIB 2020 10:53:54 Osbaldo Casey PULMONARY VEIN MAPPING POC CREATININE 2020 10:09:00 Osbaldo Casey ESTIMATED GFR 2020 10:09:00 Osbaldo Casey Lithotripsy 1990-09-26 00:00:00 [facility] Fusion of joint of 1977-09-26 06:00:00 [facility] cervical spine with internal fixation by anterior approach Kidney - local excision 1952-09-26 00:00:00 Adam Tompkins Operation<sup>1</sup> [facility] Plan of Care Planned Activity Planned Date Details Comments Source Future Scheduled 2021-04-26 INFL[place]ENZA VACCINE [place] [facility] 00:00:00 [code = INFLUENZA VACCINE] Future Scheduled 1991 SHINGLES VACCINES (#1) [place] [facility] Test 00:00:00 [code = SHINGLES VACCINES (#1)] Future Scheduled 1959 Hepatitis C screening [place] [facility] Test 00:00:00 (procedure) [code = 788585077] Future Scheduled 1957 COVID-19 VACCINE (1) Nayelijolynn paul [facility] Test 00:00:00 [code = COVID-19 VACCINE (1)] Future Scheduled 1946 65+ PNEUMOCOCCAL [facility] Test 00:00:00 VACCINE (1 of 2 - PPSV23) [code = 65+ PNEUMOCOCCAL VACCINE (1 of 2 - PPSV23)] Encounters Start End Encounter Admission Attending Care Care Encounter Source Date/Time Date/Time Type Type Clinicians Facility Department ID 2020-07-07 2020-07-07 Outpatient JACINTO, [facility] [id number] [place] 00:00:00 00:00:00 NADIM [address] 2020-07-03 2020-07-03 Outpatient JACINTO, [facility] [id number] [place] 00:00:00 00:00:00 NADIM [address] 2020 [facility] [id number] [place] 00:00:00 00:00:00 NADIM [address] 2017-02-18 2017-02-18 Outpatient Julio [facility] [id number] 08:33:00 23:59:00 Stewart 07 2016-12-21 2016-12-[address] [id number] 13:40:00 23:59:59 04 2016-10-22 2016-10-23 [address] [id number] 15:28:00 23:59:59 03 2016-04-14 2016-04-15 [address] [id number] 16:10:00 23:59:59 2016-02-24 2016-02-25 Outpatient MH91 MH91 [id number] 09:02:00 23:59:59 01 2016-02-20 2016-02-20 Outpatient Julio [facility] [id number] 09:26:00 23:59:00 Stewart 48 2016-01-29 2016-01-29 Outpatient Isamar [facility] [id number] 12:31:00 23:59:00 Soma 03 Pamela 2016-01-13 2016-01-14 Outpatient MH91 [id number] 17:19:00 23:59:59 00 2016-01-02 2016-01-02 Outpatient Fernando [facility] [id number] 08:30:00 12:08:00 Carson 05 Mandeep 2015-11-14 2015-11-14 [facility] [id number] 12:50:00 23:59:00 Carson 00 Mandeep 2015-11-14 2015-11-14 Outpatient Fernando [facility] [id number] 10:37:00 23:59:00 Carson 50 Mandeep 2015-10-29 2015-10-29 Outpatient Isamar [facility] [id number] 11:05:00 23:59:00 Soma darin 2015-10-22 2015-10-22 Outpatient Julio [facility] [id number] 15:57:00 23:59:00 Stewart 00 2015-09-29 2015-10-20 Outpatient Fernando [facility] [id number] 16:10:00 16:40:00 Carson 04 Mandeep 2015-09-29 2015-09-29 Outpatient Fernando [facility] [id number] 15:46:00 23:59:00 Carson 00 Mandeep 2015-09-19 2015-09-22 Outpatient Thanh [facility] [id number] 20:47:00 18:09:00 Mario Mac Results Test Description Test Test Results Result Source Time Comments Comments Electrophysiology Osbaldo Casey Jr., MD [place] procedure 16 Physician [facility] 14:35:47 Electrophysiology Brief Op Note Signed Date of Service: 07/07/2020 7:49 AM Procedure: EP CARDIOVERSION Case Time: 07/07/2020 7:49 AM Surgeon: Osbaldo Casey Jr., MD Signed []Hide copied text []Meme for details Cardioversion Operative Note Donell aVlle Jr., [id number] y.o. male 07/07/2020; [facility] WT CATH AOD PROC RM 1 Procedure(s):EP [...] Time: 8:10 AM Osbaldo Casey Jr., MD [facility] Prevention Social Worker Electrophysiology LabB[facility] Vascular CenterElected [place] Chair, Department of CardiologyOffice [phone] ECG 12 lead 2020-07-07 10:15:40 Test Item Value Reference Range Interpretation Comme nts Ventricular rate (test code = 253) 61 Atrial rate (test code = 255) 61 UT interval (test code = 266) 250 QRSD [...] with premature atrial complexes-Otherwise normal ECG- Musa De Los Santos Pre/Post [id number] 07:56:12 Test Item Value Reference Range Interpretation [...] Casey MD ([id number]) on 07/07/2020 7:56:05 AM [facility] qualitative [id number] 16:10:16 Test Item Value Reference Range Interpretation Comments Interpretation (test Negative results do code = 5893955) not preclude 2019-nCoV infection and should not be used as the sole basis for treatment or other patient management decisions. Negative results must be combined with clinical observations, patient history, and epidemiological information. COVID-19 qualitative Not-Detected Not-Detected PCR result (test code = 47998-5) COVID-19 qualitative See link below for C ase Number: PCR (test code = PDF Lab Report [id number]) [place] [facility]CHEM YRNSX4851-07-01 10:59:002.4[facility]annELECTROLYTES 2015-10-20 10:59:0010.4[facility] FpbtkaeVFZRFQTUBHWT3608-92-19 10:59:0057[facility] KqilkwoBKUKBJWPPHHJ5641-46-31 10:59:0034[facility] TdpvivpDESTVCGKMFLC7152-19-04 10:59:0098[facility] DtlajuoDROZVYFRTTRU3115-96-11 10:59:003.4[facility] EATCIQSPVVKB1939-17-33 10:59:71579Pjvmfmax LyokbwpADMDZHVWXVGW4504-92-04 10:59:001.24[facility] EyzgrczXNUBMTGEJUJX9278-06-82 10:59:0033[facility] YAXUGENIGPSH5463-30-79 10:59:45089Rxfazurj FuhsogtWONHLBPOADHE4966-05-45 10:59:008.7[facility] EeypjafDYHTBWBZXE0746-93-21 10:59:0014.3[facility] CXXQTEZZPC5239-36-01 10:59:0073.3[facility] PieybwgGZMWQRYFBT2376-37-30 10:59:00 1.8[facility] FjmpeuyOUUHLSXMTW8215-86-29 10:59:002.6[facility] HermannHEMATOLOGY 2015-10-20 10:59:008.9[facility] TounwfmIZGDNKHKFU0634-40-50 10:59:009.2[facility] ZkggrddPZNHOFAUMG0106-76-13 10:59:000.9[facility] HeroffqRGRIPMBVMJ2092-90-42 10:59:001.1[facility] WjerudaASBWIDJKAF5588-87-03 10:59:000.1[facility] GUISYUUBDT3284-19-99 10:59:000.3[facility] CwwxxbuSDQPUDZOIH2718-72-90 10:59:88499 [facility] JfgfyuoGCVXFRQCAK6010-65-51 10:59:008.1[facility] HermannHEMATOLOGY 2015-10-20 10:59:0017.4[facility] GbddwarZWXARFYEDL9090-37-80 10:59:003.15[facility] ZsdmozjSKPEEEAJJF2952-02-25 10:59:0012.5[facility] HsmaclpILZIOLXTZB7281-39-42 10:59:0093.0[facility] EtxefdjHWFRVCWVRD6122-93-06 10:59:00 Test Item Value Reference Range Interpretation Comments MCH (test code = MCH) 30.4 pg 27.0-31.0 [facility] QwikqidVMVTJNNFQM1438-49-66 10:59:009.6[facility] HermannHEMATOLOGY 2015-10-20 10:59:0029.3[facility] XfguyktLSNRYTJAOT8420-84-44 10:59:0032.7[facility] HermannCHEM ZECGJ5472-72-75 20:42:004.0[facility]annCHEM HNWKF1710-11-63 20:42:002.4[facility]annCHEM ACJKO3992-65-98 20:42:0042[facility]annCHEM YWGWN9852-85-36 20:42:0032[facility]annCHEM GJVAU4517-02-57 20:42:0012.6 [facility]annCHEM JCYYQ4662-83-64 20:42:008.3[facility] HermannCHEM PANEL 2015-10-19 20:42:0096[facility] HermannCHEM ICQCR3224-94-42 20:42:0028[facility] HermannCHEM CFUWH5322-49-40 20:42:81027Ozwdoddn HermannCHEM NRKNH3893-43-98 20:42:003.6[facility]annCHEM GJNZY1099-29-81 20:42:50775Xacwrmsn HermannCHEM AAFFT3972-26-31 20:42:001.58[facility]annCHEM SJIWT9355-91-33 11:00:002.5 [facility] LupuapeYMNWLUBBNHUR4656-44-79 11:00:0012.5[facility] HermannELECTROLYTES 2015-10-19 11:00:0059[facility] KxoeertLTNWDIXUBYLK3432-34-90 11:00:0023[facility] IjeisysMTTSGODNMAIJ5610-58-92 11:00:34754Vvetyqih PcsahakRHSERFJAYMUH5279-18-76 11:00:09330Yabefvia XikziqiKUIAJUIZMRNS1401-10-10 11:00:0099[facility] EPXOQKJRFDAE2588-09-95 11:00:003.5[facility] YxoxbwdRUQJIECLHYAB2931-30-25 11:00:001.20[facility] KjysmlnZOGPSAZORIIM0369-87-38 11:00:008.6[facility] FPOUSSTVIWBB6506-28-45 11:00:0032[facility] UburclsUPNYSBHPHE6865-97-03 11:00:00 16.7[facility] FjmgemlPQZQNLEHCF6007-25-91 11:00:0032.7[facility] HermannHEMATOLOGY 2015-10-19 11:00:00 Test Item Value Reference Range Interpretation Comments MCH (test code = MCH) 30.4 pg 27.0-31.0 [facility] JpdabvjGXGZTNYWBA4033-99-31 11:00:0092.8[facility] HermannHEMATOLOGY 2015-10-19 11:00:0031.3[facility] RdgatkcZSCLDIZQVJ5838-26-34 11:00:0012.7[facility] UtdxkcsBOBXANRJLW6079-34-76 11:00:003.38[facility] StfcqmeHSGVSXPKOQ9741-87-33 11:00:007.4[facility] FgqzjhuHIGMXUWINZ3411-76-13 11:00:80036Lpoydofn [facility] TLDZSDAIVP9386-83-65 11:00:0010.3[facility] HspqoksLHHYIMWZJZ1167-72-66 11:00:00 0.1[facility] FasreonEJEYYWADRP3354-17-67 11:00:000.4[facility] HermannHEMATOLOGY 2015-10-19 11:00:001.2[facility] IyyowyoBZGICCCEZR4685-17-02 11:00:001.8[facility] IrtojlmMNEWXKNEVC1554-26-78 11:00:009.2[facility] RohrqgbSXFDJBGUWF3107-83-42 11:00:009.4[facility] MutdirxLWUFDLKAKC9302-02-21 11:00:0013.9[facility] LMHNHEWHWB7995-06-33 11:00:0072.8[facility] UpgnhwjVVXQUESHES5245-26-52 11:00:00 3.0[facility] TqkrhngIXIOOUGJSV6449-80-74 11:00:000.9[facility] HermannCHEM PANEL 2015-10-18 18:18:002.8[facility] CibsmtnMMMWBQSGET2024-37-79 09:00:000.2[facility] NwmfwfwHSMDWQQERT5340-37-92 09:00:0072.0[facility] YpmmmcgAKKFCITLKD5322-30-93 09:00:009.1[facility] TpqfiebXIZGTPNNUV4278-02-01 09:00:003.0[facility] YRKKHSLXYU8827-73-67 09:00:0014.5[facility] SdpkuafLFSECZCWRM9439-96-25 09:00:00 1.6[facility] MrnzvgfJTBBGPHWWE3176-63-96 09:00:000.3[facility] HermannHEMATOLOGY 2015-10-18 09:00:008.0[facility] EawdxniLLECAMHYOQ1616-97-69 09:00:001.0[facility] KbqsufnHFMJYVYAUW5322-63-91 09:00:001.4[facility] PyemgyjRVZANOCOEK7086-31-42 09:00:007.8[facility] JnmckgiPELTKMMQPA2187-78-68 09:00:0016.1[facility] GHLPIOUPGL8625-56-90 09:00:69569Vakjxeoo GxzmrkkYGUVLUIRFQ1347-18-15 09:00:00 3.09[facility] CrhojrtXEIEOIXMAJ9095-61-65 09:00:0011.1[facility] HermannHEMATOLOGY 2015-10-18 09:00:0032.6[facility] YdicovpMOBRPZDKPG5007-21-91 09:00:0092.1[facility] KszirfkYCZJSLHEJQ2207-91-05 09:00:00 Test Item Value Reference Range Interpretation Comments MCH (test code = MCH) 30.0 pg 27.0-31.0 [facility] AwlselyKVYWUBVCRU7862-59-99 09:00:009.3[facility] HermannHEMATOLOGY 2015-10-18 09:00:0028.5[facility] HermannCHEM KFPTM7555-29-54 15:30:002.2[facility] HermannCHEM SCVUL6705-61-83 11:38:001.5[facility] HermannCHEM VZEGQ7096-20-48 11:38:0029[facility] HermannCHEM VAVRM9806-23-66 11:38:002.2[facility] HermannCHEM BAHVB1470-70-40 11:38:005.6[facility] HermannCHEM TKZAN3003-31-58 11:38:0056 [facility]annCHEM NXPTB1326-93-43 11:38:001.1[facility] HermannCHEM PANEL 2015-10-14 11:38:25004Wmspuabp HermannCHEM QRPHP5628-15-46 11:38:000.3[facility] HermannCHEM GFEHD4790-37-64 11:38:000.8[facility] HermannCHEM AXSFV9382-33-74 11:38:000.6[facility]annCHEM QXKKU2906-32-81 11:38:003.4[facility]annURINE AND KANUG7595-30-77 06:34:002[facility]annUR[facility] AND LEMRU5572-38-97 06:34:00 1[facility] AND RTTYB8316-85-41 06:34:00Negative (10/14/15 12:34 AM) [facility] AXBUG5654-45-96 06:34:00Negative (10/14/15 12:34 AM) [facility] RQZZE5488-40-18 06:34:00Trace *ABN*(10/14/15 12:34 AM) [facility] HKKFY3560-94-03 06:34:007[facility] AUCHJ3260-46-84 06:34:001.007[facility] GAVVK9079-26-10 06:34:00 Clear (10/14/15 12:34 AM)[facility] CYKRB3585-49-90 06:34:00Yellow *NA*(10/14/15 12:34 AM)[facility] PZPYH0594-56-36 06:34:005.5 [facility] XMXKR4098-81-10 06:34:00Negative *NA*(10/14/15 12:34 AM)[facility] HermannANEMIA RTBMF7119-48-88 19:02:74695Drxwpizd HermannANEMIA RSCWR3910-55-48 19:02:0011[facility] HermannANEMIA PDZSN4672-17-36 19:02:47173 [facility]annANEMIA EYJAW4235-53-75 19:02:0024[facility] HermannANEMIA STUDY 2015-10-13 19:02:08891Mfrkldgk HermannCHEM OQIES3658-68-31 19:02:002.9[facility] PvixzmdFBGSFJXQTG0644-09-47 19:02:0018[facility] UjtehchSFIYJCIZLU6382-85-26 19:02:0013.3[facility] HermannCHEM SRHLB2990-90-95 10:12:0089[facility] HermannCHEM DDOYH4078-22-13 10:12:002.3[facility] HermannCHEM SLJJG2537-34-17 10:12:005.7 [facility] HermannCHEM CKJDD7632-26-29 10:12:68788Oebvpkjr HermannCHEM PANEL 2015-10-11 10:12:0035[facility] HermannCHEM ZHOQN1025-87-36 10:12:000.3[facility] HermannCHEM UELXZ0631-27-25 10:12:001.0[facility] HermannCHEM MRGXH4319-34-19 10:12:000.7[facility] HermannCHEM ADZOH4319-37-68 10:12:003.4[facility] HermannCHEM GWFQC5406-62-96 10:12:000.7[facility] HermannCHEM RANPZ2105-36-23 07:18:000.7 [facility]annCHEM RCDCH7334-91-94 07:18:003.4[facility] HermannCHEM PANEL 2015-10-10 07:18:000.5[facility] HermannCHEM IHVMD4486-65-55 07:18:0035[facility] HermannCHEM SLHQD4341-34-37 07:18:06618Edzmmcff HermannCHEM NROJE0282-15-45 07:18:001.0[facility]annCHEM CYEHK9916-99-00 07:18:002.5[facility] HermannCHEM EOBUH1087-83-52 07:18:005.9[facility] HermannCHEM MMPMW6813-91-65 07:18:77028 [facility]annCHEM YABDD5275-65-36 07:18:000.5[facility] HermannHEMATOLOGY 2015-10-10 07:18:0012[facility]annUR[facility] AND RZIUV3186-22-56 17:37:00Yellow *NA*(10/09/15 11:37 AM)[facility] OSHLI1534-73-47 17:37:00Clear (10/09/15 11:37 AM)[facility] OLFCK3977-30-47 17:37:00Negative *NA*(10/09/15 11:37 AM)[facility] NXHYG9084-28-70 17:37:00Negative (10/09/15 11:37 AM)[facility] NEGMX3998-53-26 17:37:001[facility] AND LMMRD4119-17-94 17:37:00Negative (10/09/15 11:37 AM)[facility] IPJSI2588-58-25 17:37:00Negative (10/09/15 11:37 AM)[facility] UWFMH6038-85-66 17:37:005.0[facility] STOOL 2015-10-09 17:37:001.010[facility] FPMVL4976-23-35 17:37:001 [facility] RLPXU8266-38-09 17:37:001[facility]annHEMATOLOGY 2015-10-09 10:52:00Normal (10/09/15 4:52 AM)[facility] HykaamqWYAWSPHGCE5449-21-87 10:52:00Normal (10/09/15 4:52 AM)[facility] HermannANEMIA NVHJG8942-73-19 22:52:00 189[facility]annANEMIA [id number] 22:52:0012[facility]annANEMIA STUDY 2015-10-06 22:52:21879Tusvpwll HermannANEMIA [id number] 22:52:0024[facility]annANEMIA KYLHK8619-10-22 22:52:99907Ljrqktjy EmegsevCIRZPSHVID4556-19-50 22:52:004.3[facility] YLFFRSX1474-95-26 10:35:00Negative (10/05/15 4:35 AM)[facility] NmawhqrJVTRCFRCIW6389-95-02 09:16:001.68[facility] ByyivhtETARNQYJFX4703-35-33 09:16:00 Test Item Value Reference Range Interpretation Comments PT (test code = PT) 20.1 s 12.0-14.7 [facility] YzjemrxYDDRGLHTTL9538-20-10 09:16:00 Test Item Value Reference Range Interpretation Comments PTT (test code = PTT) 36.2 s 22.9-35.8 [facility]annCARDIAC [id number] 19:01:18398Vuqadfal HermannBLOOD BANK RZRNMHX3796-12-88 15:57:00Negative (10/02/15 9:57 AM)[facility]annCHEM PANEL 2015-10-02 08:56:0016[facility] VszrgtaCUAJXGGITD4918-91-33 08:56:00 Test Item Value Reference Range Interpretation Comments PT (test code = PT) 20.9 s 12.0-14.7 [facility] MnsrjpuDQFROIKZKS1127-18-05 08:56:001.77[facility]annHEMATOLOGY 2015-10-02 08:56:00 Test Item Value Reference Range Interpretation Comments PTT (test code = PTT) 33.9 s 22.9-35.8 [facility]annCHEM RLDBK9793-12-49 00:37:006.8[facility] STOOL 2015-10-02 00:37:00Negative *NA*(10/01/15 6:37 PM)[facility] STOOL 2015-10-02 00:37:00Moderate *ABN*(10/01/15 6:37 PM)[facility] STOOL 2015-10-02 00:37:00Negative (10/01/15 6:37 PM)[facility] STOOL 2015-10-02 00:37:003[facility] [id number] 00:37:00Yellow *NA*(10/01/15 6:37 PM)[facility] GKVZM6768-42-46 00:37:0015[facility] ERQBF1489-18-25 00:37:00Moderate *ABN*(10/01/15 6:37 PM)[facility] SRLDR7793-96-73 00:37:00Slight *ABN*(10/01/15 6:37 PM)[facility] MDMUP0080-95-68 00:37:001.016[facility] STOOL 2015-10-02 00:37:005.0[facility] LGCCG9688-04-36 00:37:009 [facility] FUUY3052-44-08 00:37:0052.6[facility] CHEM 2015-10-02 00:37:0016[facility]UR[facility] QUTD0608-69-62 00:37:59866.00[facility]UR[facility] VSFL5554-72-13 00:37:000.5[facility]annCHEM CUBFJ4065-30-68 21:22:005.6[facility] ZrsyypxCCCWMTDDJP6414-81-36 14:40:00 Test Item Value Reference Range Interpretation Comments PTT (test code = PTT) 35.1 s 22.9-35.8 [facility] BvkenwkAPJFQLFNFB1906-29-20 14:40:00 Test Item Value Reference Range Interpretation Comments PT (test code = PT) 21.2 s 12.0-14.7 [facility] YnwbawhYJWSNAUJOK3943-55-44 14:40:001.80[facility]BL[facility] ZLQCANU2691-87-31 09:00:00Product available (10/01/15 3:00 AM)[facility] PARATHYROID WSFPAEL2370-51-70 07:16:001.08[facility]annPARATHYROID PROFILE 2015-10-01 07:16:001.09[facility]annCHEM DLCFD2180-58-21 01:18:009[facility]annBACTERIAL - QNHVASXR3835-17-20 23:53:00Negative (09/30/15 5:53 PM)[facility] HyxbdlgRUYFXGBELW3677-43-47 23:53:00Normal (09/30/15 5:53 PM)[facility] [place] UALCZAUUIV0147-33-35 23:53:00Normal (09/30/15 5:53 PM)[facility]annPARATHYROID KOWTCLQ1751-71-18 23:53:000.95[facility]annPARATHYROID UYBEQAI8938-05-31 23:53:000.99[facility]annCARDIAC ACOHTIF5291-67-61 09:30:81988Mtprhhlp HermannCHEM XEFOC1472-83-74 09:30:78922Onnrknbc HermannCHEM CKDAL3712-27-50 09:30:0014[facility] HermannCHEM MWEST5043-58-11 09:30:0052[facility] FXRUBAE0094-02-78 23:51:00Negative (09/29/15 5:51 PM)[facility]annCHEM FXXUH8300-79-11 08:55:003.1[facility]annCHEM NVWHV2776-34-46 08:55:002.0 [facility] ZmrhpboDGFWSQUZDQME0810-15-98 08:55:0025[facility]annELECTROLYTES 2015-09-22 08:55:008.4[facility] OpzjufzDFVUKCKXFYCJ3100-02-82 08:55:0012.2 [facility] SddyfntGWDPRWPRSRHV3717-35-36 08:55:0085[facility]annELECTROLYTES 2015-09-22 08:55:01388Tkcrylju NemgwhcDYKMRHTELGDI2087-59-06 08:55:0013[facility] JukvytsABOGKIGJYRFP7100-22-83 08:55:000.88[facility] QallzneWFJTRZPDVCQO5362-68-64 08:55:65619Kmxzutsu PmhliarFBYWFYZIIYKF2244-13-09 08:55:003.2[facility] GKVGDJBGBWUB7411-11-94 08:55:13052Tfiltmvn UqikirhAUZACFNCPD6853-76-28 08:55:00 6.9[facility] DrlprpjXEFSUTCAAI6341-82-83 08:55:0057.6[facility]annHEMATOLOGY 2015-09-22 08:55:0011.0[facility] PsrlhghSVNZEEZPMU9820-12-74 08:55:001.0[facility] HwptfiaJQUDSKZYDY0590-15-31 08:55:0023.5[facility] ZdhtvxcIHVIIJBGGZ3687-56-08 08:55:000.5[facility] AsizszqXQKRINZWFU6590-09-77 08:55:004.5[facility] UYYDIBGQQV8341-00-79 08:55:000.9[facility] DjspnhdTHGPLJXIRF5842-37-66 08:55:000.1 [facility] DakliecRUHKMLANFR9745-63-21 08:55:001.8[facility]annHEMATOLOGY 2015-09-22 08:55:008.4[facility] NfnvpwgDOVVTGZOIB6849-65-85 08:55:62193Gkdfwlei RwjshydEXOLBJAGDP3244-95-77 08:55:007.8[facility] ElhksfpOQRBJHQMYK0692-32-11 08:55:0013.6[facility] HntcdxfBSEVKAFCQM3279-93-76 08:55:0032.5[facility] NHOKJUFWQR7803-79-96 08:55:00 Test Item Value Reference Range Interpretation Comments MCH (test code = MCH) 29.7 pg 27.0-31.0 [facility] LjmwusyDRJJOECHWR3733-02-91 08:55:004.58[facility]annHEMATOLOGY 2015-09-22 08:55:0091.4[facility] EudwuiwIIEEQBEUOS5722-07-57 08:55:0041.8[facility] KgkctekOYMMGZITDN9852-35-47 08:55:0014.8[facility]annCHEM WNPHI1074-32-57 08:28:002.5[facility]annCHEM GOZVP5829-73-81 08:28:002.1[facility]annCHEM CXMQG4791-37-29 08:28:0094[facility]annCHEM ODWAE3160-87-20 08:28:0010 [facility]annCHEM EVHED1734-84-69 08:28:24464Dlgolzzp HermannCHEM PANEL 2015-09-21 08:28:0023[facility]annCHEM UWRWW8412-53-82 08:28:008.5[facility]annCHEM YNHMC9505-62-74 08:28:000.69[facility]annCHEM BVBRP1634-34-34 08:28:65785Ipcgvpsd HermannCHEM CSSBP3581-21-44 08:28:003.3[facility]annCHEM HZNFI4821-67-72 08:28:73707Egxanzir HermannCHEM TDBTC6881-91-01 08:28:0014.3 [facility] AabhrgqCICIEDRFRP8927-39-65 08:28:000.1[facility] HermannHEMATOLOGY 2015-09-21 08:28:001.6[facility] OfpauliEQATHQJTAH5819-57-06 08:28:005.4[facility] MmeqwopUWRGHSLVDL0362-08-12 08:28:000.2[facility] OefmhplLEDZKIAABZ0524-40-93 08:28:000.8[facility] QjhbryzOJHDJUXZOT5169-26-28 08:28:000.8[facility] WKTACCDUBY4478-55-57 08:28:009.6[facility] FwivokeCCRNTJQXIT9816-76-79 08:28:002.1 [facility] UavssgqVJEJFPCUFL0954-70-21 08:28:0067.7[facility]annHEMATOLOGY 2015-09-21 08:28:0019.8[facility] CsvuqqeUCELZPRADT2155-12-27 08:28:0015.0[facility] VgnywteCTTKESUZJX3181-66-36 08:28:11187Dvzxvgyy WtsqcrgWLOEDLJNDH0905-97-53 08:28:008.2[facility] DiefkabUENWXEVPEG6845-89-14 08:28:0013.6[facility] OVPISUWDYH9535-11-54 08:28:00 Test Item Value Reference Range Interpretation Comments MCH (test code = MCH) 29.2 pg 27.0-31.0 [facility] SuswvbnVZISAQYUQB0975-36-08 08:28:0043.0[facility]annHEMATOLOGY 2015-09-21 08:28:0092.4[facility] NodzqboZIMBMUFKYY4299-89-48 08:28:008.0[facility] DohcacaGVIHFFVAPY3709-56-46 08:28:004.66[facility] SxcqgchPKRTZEEZBY6758-70-77 08:28:0031.6[facility] HermannPARATHYROID QXGLWIM6038-12-31 08:28:001.05[facility] HermannPARATHYROID KWSDBTB4778-74-09 08:28:001.06[facility] HermannCARDIAC ENZYMES 2015-09-20 16:47:0045[facility] HermannCARDIAC HGVFEQY8835-30-39 16:47:000.02 [facility]annCARDIAC TRTEYSV5954-94-27 16:47:00<0.010[facility] BACTERIAL - KMCHXJPA9866-29-48 08:08:00Negative (09/20/15 2:08 AM)[facility]annCARDIAC RSZJPFU5899-41-63 08:00:0045[facility]annCARDIAC ENZYMES 2015-09-20 08:00:00<0.010[facility]annCARDIAC XNSILPF6907-11-97 08:00:00 0.02[facility] HermannCHEM GRZNV1987-88-16 08:00:0072[facility] HermannCHEM PANEL 2015-09-20 08:00:008.3[facility] HermannCHEM JKRZV1900-65-57 08:00:001.02[facility]annCHEM BFBUN0449-92-30 08:00:42734Xaaqealn HermannCHEM NFLOX0294-22-97 08:00:0018[facility]annCHEM SQFKW4393-35-37 08:00:0024[facility]annCHEM ABVMH9462-33-94 08:00:0012.1[facility] HermannCHEM MSDZA2427-99-19 08:00:003.1 [facility]annCHEM XMMGN3486-39-10 08:00:66806Xmzysjkd HermannCHEM PANEL 2015-09-20 08:00:80165Unqsdnfn HermannCHEM DRFWJ0335-03-56 08:00:000.5[facility]annCHEM YPYGK8607-99-32 08:00:000.3[facility]annCHEM QCLMO3514-17-36 08:00:000.8[facility] HermannCHEM IRNRD6394-77-12 08:00:0018[facility] HermannCHEM PKJYG4594-92-19 08:00:80335Pjkibmbf HermannCHEM HNCOL4004-04-66 08:00:000.8 [facility]annCHEM REKNB8371-83-16 08:00:0029[facility] HermannCHEM PANEL 2015-09-20 08:00:007.1[facility]annCHEM VJRNT8914-01-95 08:00:004.0[facility]annCHEM DUMND9950-11-85 08:00:003.1[facility] HermannCHEM FEWPA6313-44-83 08:00:003.8[facility]annCHEM FSDCE0824-97-95 08:00:001.8[facility] YRSKSRGGOV6197-82-86 08:00:0032.4[facility] LfxbedyYRBGKUHNQI0265-09-10 08:00:00 14.2[facility] VtrzeacYTXZQQVXJC3560-72-06 08:00:05090Eyyfljzv HermannHEMATOLOGY 2015-09-20 08:00:008.1[facility] LscydxuCWRSFODZAO1118-05-32 08:00:00 Test Item Value Reference Range Interpretation Comments MCH (test code = MCH) 29.6 pg 27.0-31.0 [facility] DrnbjufNWBIDNPCBB6769-79-08 08:00:008.1[facility] HermannHEMATOLOGY 2015-09-20 08:00:004.62[facility] UmlkwkdLAJAQPYCGX1037-07-94 08:00:0013.6[facility] UvxvxyePPACIVEKUU2004-38-77 08:00:0042.2[facility] WpsimwmSQCNIBGLYQ5257-92-31 08:00:0091.3[facility] RgelvvyFUSFFHOLDT0453-73-96 08:00:0017[facility] UYEFTGDFGV0162-59-50 08:00:000.7[facility] MybhrjvKGVTEGFAJC8624-71-40 08:00:00 23.3[facility] NwvbvpiVEPXMFUTUF8270-85-40 08:00:007.7[facility] HermannHEMATOLOGY 2015-09-20 08:00:0066.5[facility] HbqoemwYNKQZAFBRZ8380-93-09 08:00:001.8[facility] WrnqkffIFSLIRCRYN9489-79-64 08:00:000.1[facility] HuhquuwOTHDBOOREE8372-56-72 08:00:000.1[facility] YzvecnlCBSIUQNOOZ2318-22-30 08:00:001.9[facility] CCUDDPUDGV2134-07-37 08:00:000.6[facility] MgezxybOWJADNKCMY9502-07-59 08:00:005.4 [facility] HermannPARATHYROID IHCWDVH3282-99-94 08:00:001.06[facility] PARATHYROID IBUNWOG2108-00-14 08:00:001.06[facility] HermannDRUG OQFAWZ0820-50-67 04:09:00See Note *NA*(09/19/15 10:09 PM)[facility] HermannDRUG UMLMCZ9422-10-34 04:09:00Negative *NA*(09/19/15 10:09 PM)[facility] HermannDRUG ESNMUD5580-45-38 04:09:00Negative *NA*(09/19/15 10:09 PM)[facility] HermannDRUG TRFPJP6237-86-72 04:09:00Negative *NA*(09/19/15 10:09 PM)[facility] HermannDRUG EVVFLV8328-61-68 04:09:00Negative *NA*(09/19/15 10:09 PM)[facility] HermannDRUG PHVQQI9857-84-05 04:09:00Negative *NA*(09/19/15 10:09 PM)[facility] HermannDRUG LIIALL0660-34-49 04:09:00Negative *NA*(09/19/15 10:09 PM)[facility] HermannDRUG OQRNUK8562-23-35 04:09:00Negative *NA*(09/19/15 10:09 PM)[facility] MxuyqlhIQMCID2289-01-81 04:09:002.84[facility] TqrcwgaAZSDSN5356-07-75 04:09:0037[facility] HermannLIPIDS 2015-09-20 04:09:0037[facility] EprokyvJHGGLK0703-37-14 04:09:0031[facility] EEKDDL4778-71-83 04:09:36893Rkmsvstr IdqnrnoIWBCRP0786-93-04 04:09:08522Boxfybfv HermannSPECIAL TKTYPTUIZ9396-23-00 04:09:006.0[facility]annURINE AND STOOL 2015-09-20 04:09:00Negative *NA*(09/19/15 10:09 PM)[facility] AND QYYCI4554-99-32 04:09:00Negative (09/19/15 10:09 PM)[facility] AND RNPSG9525-90-74 04:09:000.2[facility]annUR[facility] AND FIIRC6153-11-22 04:09:00 Small *ABN*(09/19/15 10:09 PM)[facility] AND LGMWJ8203-15-25 04:09:00 Negative *NA*(09/19/15 10:09 PM)[facility] AND ZKPRF2110-03-39 04:09:00 Test Item Value Reference Range Interpretation Comments UA Spec Grav (test code = UA Spec 1.015 1 Grav) [facility] QLBGO2450-47-28 04:09:00Clear (09/19/15 10:09 PM) [facility] AND ZHXDR8824-20-92 04:09:00 Test Item Value Reference Range Interpretation Comments UA pH (test code = UA pH) 5.5 1 5.0-8.0 [facility] RNVLY6958-48-94 04:09:00Negative (09/19/15 10:09 PM) [facility] WCEOE0447-09-40 04:09:00Negative (09/19/15 10:09 PM) [facility] FPSUH1585-17-26 04:09:00Yellow *NA*(09/19/15 10:09 PM) [facility] OCHVJ4731-05-95 04:09:00None Seen (09/19/15 10:09 PM) [facility] LMEWI5401-29-65 04:09:000-2 (09/19/15 10:09 PM) [facility] RPZCY5771-89-32 03:12:001.4[facility]annHEMATOLOGY 2015-09-20 03:00:00Citrated Whole Blood (09/19/15 9:00 PM)[facility] EQIFQFLSLC8007-48-82 03:00:00 Test Item Value Reference Range Interpretation Comments ACT (TEG) (test code = ACT (TEG)) 113 s 86-118 [facility] SjzpxwsMHTMDLQAGT5677-84-43 03:00:00 Test Item Value Reference Range Interpretation Comments Split Point (test code = Split Point) 0.5 min [facility] HrrdxebCWNYWKBVHO5201-11-90 03:00:00 Test Item Value Reference Range Interpretation Comments R-time (test code = R-time) 0.7 min 0.4-0.7 [facility] XqxpxpxFCCFXSPQGY0959-76-00 03:00:00 Test Item Value Reference Range Interpretation Comments K-time (test code = K-time) 1.2 min 0.6-2.3 [facility] MomwqzzTTMDGHIZXZ2064-64-18 03:00:00 Test Item Value Reference Range Interpretation Comments Angle (test code = Angle) 75 degrees 64-80 [facility] ViqqlfhJKQKEBYQWV0217-60-97 03:00:009.4[facility] HermannHEMATOLOGY 2015-09-20 03:00:00 Test Item Value Reference Range Interpretation Comments Max Amp (test code = Max Amp) 65 mm 52-71 [facility] DolkizxIRALBMNFRF3193-01-77 03:00:004.1[facility] HermannCARDIAC ENZYMES 2015-09-20 02:50:003.8[facility] HermannCARDIAC OFNTWKE9070-75-30 02:50:0053 [facility] HermannCARDIAC KAGKNCI6270-58-68 02:50:00<0.02[facility] CARDIAC UOZDPDI1574-08-60 02:50:002.0[facility] NwudglqZODIZZQFSC4540-81-53 02:50:00 Test Item Value Reference Range Interpretation Comments PTT (test code = PTT) 33.4 s 22.9-35.8 [facility] BadcpcyDRQPYGHKUS2101-60-40 02:50:001.17[facility] HermannHEMATOLOGY 2015-09-20 02:50:00 Test Item Value Reference Range Interpretation Comments PT (test code = PT) 15.2 s 12.0-14.7 [facility]
[2021-02-02] MEDS ORDERED: VANCOMYCIN 1 GM/VIAL ONE (20:05)
[2021-02-02] MEDS ORDERED: NA CHLORIDE 0.9% 250 ML ONE (20:06)
[2021-02-02] MEDS ORDERED: CEFAZOLIN/SWI 1gm 0 GM/0 ML SYR ONE (20:06)
[2021-02-02] MEDS ORDERED: CEFEPIME/SWI 1gm 0 ML ONE (20:14)
--- NOTE | 2021-02-02 20:41 | EDPHYS ---
Physician Documentation [facility] Name: Donell Valle Jr Age: 80 yrs Sex: Male : 1940 Arrival Date: 02/02/2021 Time: 16:52 Bed 17 Private MD: Eriberto Ballard R ED Physician Fernandez Waldron HPI: 02/02 19:35 This 80 yrs old Male presents to ER via Ambulatory with complaints of pm1 Admission for IV antibiotics, Foot Pain. 19:35 The patient presents with pain, swelling. The complaints affect the dorsum of right pm1 foot. Context: The problem was sustained outdoors, resulted from crush injury with abrasion, the patient can fully bear weight, the patient is able to ambulate. Onset: The symptoms/episode began/occurred 6 day(s) ago. Modifying factors: The symptoms are alleviated by nothing, 6 days of keflex without improvement. Associated signs and symptoms: Pertinent positives: swelling, Pertinent negatives: fever. Severity of symptoms: in the emergency department the symptoms are actually worse. The patient has been recently seen by a physician: the patient's primary care provider, Dr. Ballard earlier today, with similar presenting complaints, and was sent to the [facility] Emergency Department for further evaluation, and admission for IV antibiotics. Patient was working on a dock and dropped a pylon wood for a dock on his right foot. Resulted in an abrasion that did not require repair at the ER he visited. Was discharged home with Keflex. No improvement and saw PCP today and instructed to go to the ER for admission due to failed outpatient antibiotic therapy. Historical: - Allergies: 17:41 NKDA; jd3 - Home Meds: 22:13 Lasix 80 mg Oral tab 1 tab once daily [Active]; aspirin 81 mg Oral TbEC 1 tab once lc1 daily [Active]; Lipitor 40 mg Oral tab 1 tab once daily [Active]; digoxin 125 mcg Oral tab 1 tab once daily [Active]; nifedipine 60 mg Oral TbER 1 tab once daily [Active]; spironolactone 25 mg Oral tab 1 tab once daily [Active]; tadalafil oral 20 mg oral once daily [Active]; - PMHx: 17:41 CVA; Hypertension; Atrial Fib; jd3 - PSHx: 17:41 Cholecystectomy; TURP; cardiac ablation; CABG; jd3 - Immunization history:: Adult Immunizations up to date, Last tetanus immunization: unknown. - Social history:: Smoking status: Patient denies any tobacco usage or history of. ROS: 19:44 MS/extremity: Positive for pain, swelling, of the dorsum of right foot. pm1 19:44 Constitutional: Negative for fever, chills, and weight loss, Eyes: Negative for injury, pain, redness, and discharge, ENT: Negative for injury, pain, and discharge, Cardiovascular: Negative for chest pain, palpitations, and edema, Respiratory: Negative for shortness of breath, cough, wheezing, and pleuritic chest pain, Abdomen/GI: Negative for abdominal pain, nausea, vomiting, diarrhea, and constipation, Back: Negative for injury and pain. 19:44 Neuro: Negative for headache, weakness, numbness, tingling, and seizure. 19:44 Skin: Positive for cellulitis, erythema, of the dorsum of right foot, Negative for drainage. Exam: 19:44 Constitutional: This is a well developed, well nourished patient who is awake, alert, pm1 and in no acute distress. Head/Face: Normocephalic, atraumatic. Eyes: Pupils equal round and reactive to light, extra-ocular motions intact. Lids and lashes normal. Conjunctiva and sclera are non-icteric and not injected. Cornea within normal limits. Periorbital areas with no swelling, redness, or edema. 19:44 Back: No spinal tenderness. No costovertebral tenderness. Full range of motion. 19:44 ENT: External ear(s): are unremarkable, Mouth: Oral mucosa: normal, pink and intact, moist, Voice: no acute changes. 19:44 Cardiovascular: Rate: normal, Rhythm: regular, Pulses: no pulse deficits are appreciated, Edema: is not appreciated. 19:44 Respiratory: Exam negative for acute changes, respiratory distress, shortness of breath, Breath sounds: are clear throughout. 19:44 Abdomen/GI: Inspection: abdomen appears normal, Palpation: abdomen is soft and non-tender, in all quadrants. 19:44 Skin: Appearance: normal except for affected area, abscess, of the dorsum of right foot, with fluctuance, that is mild, with surrounding cellulitis, cellulitis, well demarcated, on the dorsum of right foot. 19:44 Neuro: Orientation: is normal, Mentation: is normal, Motor: is normal, moves all fours, Sensation: is normal, no obvious gross deficits. Vital Signs: 17:41 BP 151 / 86; Pulse 50; Resp 17 S; Temp 98.3(TE); Pulse Ox 97% on R/A; Weight 80.29 kg jd3 (R); Height 6 ft. 1 in. (185.42 cm) (R); Pain 6/10; 20:38 BP 142 / 89; Pulse 81; Resp 18; Temp 98(O); Pulse Ox 99% ; lc1 21:00 BP 148 / 87; Pulse 67; Resp 16; Pulse Ox 100% on R/A; lc1 22:00 BP 124 / 70; Pulse 89; Resp 18; Pulse Ox 100% on R/A; lc1 23:00 BP 106 / 75; Pulse 85; Resp 16; Pulse Ox 98% ; lc1 17:41 Body Mass Index 23.35 (80.29 kg, 185.42 cm) jd3 MDM: 19:25 Patient medically screened. pm1 19:43 ED course: Patient refused pain medications. pm1 19:46 Data reviewed: vital signs. Data interpreted: Pulse oximetry: on room air is 97 %. pm1 Interpretation: normal. Counseling: I had a detailed discussion with the patient and/or guardian regarding: the historical points, exam findings, and any diagnostic results supporting the discharge/admit diagnosis, the need for further work-up and treatment in the hospital. 02/02 19:34 Order name: CBC with Diff; Complete Time: 20:51 pm1 02/02 19:34 Order name: CMP; Complete Time: 21:14 pm1 02/02 19:34 Order name: Blood Culture Adult (2) pm1 02/02 19:34 Order name: Procalcitonin; Complete Time: 21:25 pm1 02/02 19:34 Order name: Lactate; Complete Time: 21:14 pm1 02/02 19:34 Order name: Foot Right 3 View XRAY; Complete Time: 21:14 pm02/02 19:34 Order name: IV Saline Lock; Complete Time: 20:34 pm1 02/02 21:51 Order name: SARS-COV-2 RT PCR EDMS Administered Medications: 19:42 CANCELLED (Physician Discretion): Cefepime 2 grams IVPB at 200 ml/hr once over 30 mins; pm1 (mix in NS 100 mL) 20:48 Drug: vancoMYCIN 1 grams Route: IVPB; Infused Over: 2 hrs; Site: left forearm; lc1 22:37 Follow up: Response: No adverse reaction; IV Status: Completed infusion 1 20:57 Drug: Tetanus-Diphtheria Toxoid Adult 0.5 ml {Hot Roll Laminator: [employer]. Exp: lc1 03/17/2022. Lot #: [id number]. } Route: IM; Site: left deltoid; 21:28 Follow up: Response: No adverse reaction 1 22:36 Drug: LevaQUIN (levofloxacin) 750 mg Volume: 150 ml; Route: IVPB; Infused Over: 90 lc1 mins; Site: left forearm; 22:47 Follow up: Response: No adverse reaction; IV Status: Infusion continued upon admission 1 Disposition: 02/03 06:53 Co-signature as Attending Physician, Fernandez Waldron MD I agree with the assessment and paula plan of care. Disposition: 02/02/21 20:40 Hospitalization ordered by Maxi Castañeda for Inpatient Admission. Preliminary diagnosis is Cellulitis of right lower limb - Right foot with abscess. - Bed requested for Telemetry/MedSurg (Inpatient). - Status is Inpatient Admission. lc1 - Condition is Stable. - Problem is new. - Symptoms have improved. Signatures: Dispatcher [employer] EDNM Magda Suero RN RN mw Anderson, Corey, MD MD cha Calhoun, Lisa lc1 Isrrael Capps, INTERACTIVE DIGITAL MEDIA SPECIALIST INTERACTIVE DIGITAL MEDIA SPECIALIST pm1 Feliz Mckenzie RN RN jd3 Corrections: (The following items were deleted from the chart) 02/02 19:42 19:34 Cefepime 2 grams IVPB at 200 ml/hr once over 30 mins; (mix in NS 100 mL) ordered. pm1 pm1 19:54 19:44 Skin: Appearance: normal except for affected area, cellulitis, well demarcated, pm1 on the dorsum of right foot, pm1 21:12 19:35 CORONAVIRUS+MR.LAB.BRZ ordered. EDNM EDNM 22:00 20:40 Hospitalization Ordered by Maxi Castañeda MD for Inpatient Admission. Preliminary diagnosis is Cellulitis of right lower limb - Right foot with abscess. Bed requested for Telemetry/MedSurg (Inpatient). Status is Inpatient Admission. Condition is Stable. Problem is new. Symptoms have improved. pm1 23:16 22:00 02/02/2021 20:40 Hospitalization Ordered by Maxi Castañeda MD for Inpatient lc1 Admission. Preliminary diagnosis is Cellulitis of right lower limb - Right foot with abscess. Bed requested for Telemetry/MedSurg (Inpatient). Status is Inpatient Admission. Condition is Stable. Problem is new. Symptoms have improved. mw
--- NOTE | 2021-02-02 20:41 | ER ---
Nurse's Notes [facility] Name: Donell Valle Jr Age: 80 yrs Sex: Male : 1940 Arrival Date: 02/02/2021 Time: 16:52 Bed 17 Private MD: Eriberto Ballard R Diagnosis: Cellulitis of right lower limb-Right foot with abscess Presentation: 02/02 17:39 Chief complaint: Patient states: "I was seen by Dr. Ames who told me to come to the ER jd3 to get IV antibiotics for the infection on my right foot.". Coronavirus screen: At this time, the client does not indicate any symptoms associated with coronavirus-19. Ebola Screen: Patient negative for fever greater than or equal to 101.5 degrees Fahrenheit, and additional compatible Ebola Virus Disease symptoms. Initial Sepsis Screen: Does the patient meet any 2 criteria? No. Patient's initial sepsis screen is negative. Does the patient have a suspected source of infection? No. Patient's initial sepsis screen is negative. Risk Assessment: Do you want to hurt yourself or someone else? Patient reports no desire to harm self or others. Onset of symptoms was January 27, 2021. 17:39 Method Of Arrival: Ambulatory j 17:39 Acuity: ALTAF 3 jd3 Historical: - Allergies: 17:41 NKDA; jd3 - Home Meds: 22:13 Lasix 80 mg Oral tab 1 tab once daily [Active]; aspirin 81 mg Oral TbEC 1 tab once lc1 daily [Active]; Lipitor 40 mg Oral tab 1 tab once daily [Active]; digoxin 125 mcg Oral tab 1 tab once daily [Active]; nifedipine 60 mg Oral TbER 1 tab once daily [Active]; spironolactone 25 mg Oral tab 1 tab once daily [Active]; tadalafil oral 20 mg oral once daily [Active]; - PMHx: 17:41 CVA; Hypertension; Atrial Fib; jd3 - PSHx: 17:41 Cholecystectomy; TURP; cardiac ablation; CABG; jd3 - Immunization history:: Adult Immunizations up to date, Last tetanus immunization: unknown. - Social history:: Smoking status: Patient denies any tobacco usage or history of. Screenin:38 Abuse screen: Denies threats or abuse. Nutritional screening: No deficits noted. lc1 Tuberculosis screening: No symptoms or risk factors identified. Fall Risk None identified. Assessment: 21:21 General: Appears distressed, slender, well groomed, Behavior is calm, cooperative. lc1 Pain: Complains of pain in right foot and dorsum of right foot. Neuro: No deficits noted. Cardiovascular: No deficits noted. Respiratory: Airway is patent Respiratory effort is even, unlabored, Respiratory pattern is regular. GI: No deficits noted. No signs and/or symptoms were reported involving the gastrointestinal system. : No deficits noted. No signs and/or symptoms were reported regarding the genitourinary system. EENT: No deficits noted. No signs and/or symptoms were reported regarding the EENT system. Derm: Skin is red, Wound noted right foot and dorsum of right foot Wound is area edematous, pt states he dropped a timber on it January 23, has become increasingly red and swollen. visited [place] [facility] and had xray taken, no fracture seen. started on antibiotics but is still getting worse. Musculoskeletal: No deficits noted. 22:00 Reassessment: No changes from previously documented assessment. Patient and/or family lc1 updated on plan of care and expected duration. Pain level reassessed. Patient is alert, oriented x 3, equal unlabored respirations, skin warm/dry/pink. 23:00 Reassessment: No changes from previously documented assessment. Patient and/or family lc1 updated on plan of care and expected duration. Pain level reassessed. Patient is alert, oriented x 3, equal unlabored respirations, skin warm/dry/pink. updated on status, to be admitted to room 215. Vital Signs: 17:41 BP 151 / 86; Pulse 50; Resp 17 S; Temp 98.3(TE); Pulse Ox 97% on R/A; Weight 80.29 kg jd3 (R); Height 6 ft. 1 in. (185.42 cm) (R); Pain 6/10; 20:38 BP 142 / 89; Pulse 81; Resp 18; Temp 98(O); Pulse Ox 99% ; lc1 21:00 BP 148 / 87; Pulse 67; Resp 16; Pulse Ox 100% on R/A; lc1 22:00 BP 124 / 70; Pulse 89; Resp 18; Pulse Ox 100% on R/A; lc1 23:00 BP 106 / 75; Pulse 85; Resp 16; Pulse Ox 98% ; lc1 17:41 Body Mass Index 23.35 (80.29 kg, 185.42 cm) jd3 ED Course: 16:52 Patient arrived in ED. am2 16:52 Eriberto Ballard MD is Private Physician. am2 17:41 Triage completed. jd3 17:42 Arm band placed on. jd3 19:25 Isrrael Capps NP is PHCP. pm1 19:25 Fernandez Waldron MD is Attending Physician. pm1 19:37 Agnes Justice is Primary Nurse. lc1 20:30 No apparent distress. Awaiting bed assignment. lc1 20:30 Inserted saline lock: 20 gauge in left forearm, using aseptic technique. Blood lc1 collected. 20:33 Foot Right 3 View XRAY In Process Unspecified. EDMS 20:38 Patient has correct armband on for positive identification. Bed in low position. Call lc1 light in reach. Side rails up X 1. Pulse ox on. NIBP on. Door closed. Noise minimized. Warm blanket given. Diet: brought food, reminded of NPO status after midnight . 20:38 No provider procedures requiring assistance completed. lc1 20:40 Maxi Castañeda MD is Hospitalizing Provider. pm1 22:00 Patient has correct armband on for positive identification. Bed in low position. Side lc1 rails up X 1. 22:45 Patient admitted, IV remains in place. lc1 Administered Medications: 19:42 CANCELLED (Physician Discretion): Cefepime 2 grams IVPB at 200 ml/hr once over 30 mins; pm1 (mix in NS 100 mL) 20:48 Drug: vancoMYCIN 1 grams Route: IVPB; Infused Over: 2 hrs; Site: left forearm; lc1 22:37 Follow up: Response: No adverse reaction; IV Status: Completed infusion lc1 20:57 Drug: Tetanus-Diphtheria Toxoid Adult 0.5 ml {Steward/Stewardess Third Class: [employer]. Exp: lc1 03/17/2022. Lot #: [id number]. } Route: IM; Site: left deltoid; 21:28 Follow up: Response: No adverse reaction lc1 22:36 Drug: LevaQUIN (levofloxacin) 750 mg Volume: 150 ml; Route: IVPB; Infused Over: 90 lc1 mins; Site: left forearm; 22:47 Follow up: Response: No adverse reaction; IV Status: Infusion continued upon admission [facility] Outcome: 20:40 Decision to Hospitalize by Provider. pm1 22:03 Condition: good [facility] 22:45 Admitted to Tele accompanied by tech, via wheelchair, room 215, Report called to [place] [id number] 22:45 Instructed on the need for admit. 23:16 [address] the ED[address] [facility] Signatures: Dispatcher [employer] EDMS Agnes Justice 1 Isrrael Capps, CAD DESIGN ENGINEER CAD DESIGN ENGINEER pm1 Rashmi Mckeon 2 Feliz Mckenzie RN RN jd3 Corrections: (The following items were deleted from the chart) 21:12 20:53 CORONAVIRUS+ drawn and sent. [facility] EDNV
[2021-02-02 20:42] LABS: Absolute Lymphocytes (CBC) 1.3 K/uL (0.7-4.9); Basophils % 0.7 % (0-1.3); Hematocrit 43.1 % (39.6-49.0); Lymphocytes % 12.9 % (15.3-44.8); MPV 7.8 fL (7.6-11.3); RBC Red Blood Cell Count 4.83 M/uL (4.33-5.43)
[2021-02-02 20:59] LABS: Albumin 3.6 g/dL (3.4-5.0); Bilirubin Total 0.7 mg/dL (0.2-1.0); Potassium 3.8 mmol/L (3.5-5.1); Protein, Total 8.4 g/dL (6.4-8.2)
--- NOTE | 2021-02-02 21:04 | RAD REPORT ---
EXAM DESCRIPTION: RAD - Foot Right 3 View - 02/02/2021 8:33 pm CLINICAL HISTORY: PAIN COMPARISON: No comparisons FINDINGS: Moderate soft tissue swelling is seen along the dorsum of the midfoot. No acute fracture o r dislocation seen. Moderate posterior and plantar calcaneal spurs.
[2021-02-02] MEDS ORDERED: Levofloxacin 750mg IV 750 MG/150 ML BAG IV ONE (21:11)
[2021-02-02] MEDS ORDERED: TETANUS & DIPHTHERIA TOX,ADULT 0.5 ML VIAL ONE (21:12)
--- NOTE | 2021-02-02 21:38 | P.HP ---
Certification for Inpatient Patient admitted to: Inpatient With expected LOS: >2 Midnights Patient will require the following post-hospital care: None Practitioner: I am a practitioner with admitting privileges, knowledge of patient current condition, hospital course, and medical plan of care. Services: Services provided to patient in accordance with Admission requirements found in Title 42 Section 412.3 of the Code of Federal Regulations Patient History Date of Service: 02/02/21 Primary Care Provider: DR. Ballard Reason for admission: Cellulitis History of Present Illness: 80-year-old male with history of paroxysmal atrial fibrillation, hypertension, CVA presents emergency department for cellulitis. Patient reports that he had an injury on January 23 with someone that he was working with in began antibiotic therapy on January 28 with Keflex. Patient noticed redness and swelling were getting worse and was seen by his primary care doctor who referred him to the emergency department for evaluation. Patient noted to have a large area of cellulitis of the dorsum of the right foot and ankle area with area of fluctuance noted to the dorsum. X-rays unremarkable aside from some soft tissue swelling to the dorsum of the foot, labs significant for white blood cell count 10.2. Patient was started on Levaquin and vancomycin in the emergency department, General Surgery was consulted for likely incision and drainage tomorrow morning. Will admit for further evaluation and management. Allergies No Known Drug Allergies Allergy (Verified 04/29/20 10:52) Unknown Home Medications: Fluticasone/Vilanterol [Breo Ellipta 100-25 Mcg INH] 1 puff IH DAILY 07/27/20 Losartan Potassium [Cozaar] 1 tab PO DAILY 07/27/20 Aspirin [Aspirin EC 81 MG] 81 mg PO DAILY #30 tablet. 07/29/20 Atorvastatin Calcium [Lipitor] 40 mg PO BEDTIME #30 tab 07/29/20 Mometasone/Formoterol [Dulera 200 Mcg/5 Mcg Inhaler] 2 puff IH BID #1 inhaler 07/29/20 Nifedipine Xl [Procardia XL*] 60 mg PO DAILY #30 tab 07/29/20 Digoxin 125 mcg PO DAILY 11/28/20 Spironolactone [Aldactone*] 25 mg PO DAILY 11/28/20 Furosemide [Lasix] 80 mg PO BID #60 tablet 11/30/20 - Past Medical/Surgical History Diabetic: No -: Hypertension -: Atrial fibrillation with prior cardioversion -: Former tobacco use -: Asbestosis -: Hyperlipidemia -: History of CVA -: CAD with prior CABG x2 -: Chronic diastolic congestive heart failure -: CKD 3 -: kidney surgery (stones and partial R kidney removal) -: back surgery -: knee surgery -: TURP -: CABG 2 vessel Psychosocial/ Personal History: Patient , lives with his and is retired - Family History Father -: Lung disease Mother -: Heart disease, Cancer Notes: Colon Cancer-mother. heart disease-mother - Social History Alcohol use: No CD- Drugs: No Caffeine use: No Place of Residence: Home Review of Systems 10-point ROS is otherwise unremarkable Musculoskeletal: Leg Pain, Foot Pain, As per HPI Physical Examination - Physical Exam General: Alert, In no apparent distress HEENT: Atraumatic, PERRLA, Mucous membr. moist/pink Neck: Supple, 2+ carotid pulse no bruit, No LAD Respiratory: Clear to auscultation bilaterally, Normal air movement Cardiovascular: Regular rate/rhythm, Normal S1 S2 Gastrointestinal: Normal bowel sounds, No tenderness Musculoskeletal: Erythema, Tenderness, Warmth Integumentary: Tenderness/swelling, Erythema, Warmth Neurological: Normal speech, Normal strength at 5/5 x4 extr, Normal tone, Normal affect - Studies Laboratory Data (last 24 hrs) 02/02/21 20:30: Sodium 140, Potassium 3.8, BUN 27 H, Creatinine 0.94, Glucose 103, Total Bilirubin 0.7, AST 20, ALT 31, Alkaline Phosphatase 164 H 02/02/21 20:30: WBC 10.20, Hgb 14.5, Hct 43.1, Plt Count 268 Assessment and Plan - Plan Assessment Cellulitis with abscess of the right lower extremity failed outpatient therapy Atrial fibrillation not on chronic anticoagulation therapy Chronic diastolic congestive heart failure with history of CAD status post CABG Hypertension Hyperlipidemia History of CVA Plan Cellulitis with abscess of the right lower extremity failed outpatient therapy: Continue with IV Levaquin, vancomycin. NPO after midnight, general surgery consulted for likely incision and drainage tomorrow morning of abscess to the dorsum of the right foot. DVT prophylaxis with SCDs at this time. Anticipate clinical improvement in the next 48-72 hr. Atrial fibrillation not on chronic anticoagulation therapy: Patient reportedly takes daily aspirin, will continue home meds. Rate controlled at this time. Chronic diastolic congestive heart failure with history of CAD status post CABG: Stable this time, continue home medications. Hypertension, Hyperlipidemia, History of CVA: Stable continue home meds Discharge Plan: Home Plan to discharge in: Greater than 2 days - Advance Directives Does patient have a Living Will: No Does patient have a Durable POA for Healthcare: No - Code Status/Comfort Care Code Status Assessed: Yes (Full code) Critical Care: No Time Spent Managing Pts Care (In Minutes): 55
[2021-02-02 23:26] VITALS: BMI 23.5
[2021-02-02] MEDS ORDERED: MORPHINE 2 MG/ML SYR IV PRN (23:30)
[2021-02-02] MEDS ORDERED: NA CHLORIDE 0.9% 1,000 ML IV SCH (23:30)
[2021-02-02] MEDS ORDERED: ONDANSETRON 4 MG/2 ML VIAL IV PRN (23:30)
[2021-02-02] MEDS ORDERED: VANCOMYCIN/NS 1 gm 1 GM/250 ML BAG IVPB SCH (23:30)
[2021-02-02] MEDS ORDERED: VANCOMYCIN 250 MG in NA CHLORIDE 0.9% 100 ML IVPB SCH (23:45)
[2021-02-03] MEDS ORDERED: DULERA 200/5 (MOMETASONE/FORMOTEROL) INHALER IH PRN (00:15)
[2021-02-03] MEDS ORDERED: VANCOMYCIN 500 MG in NA CHLORIDE 0.9% 100 ML IVPB ONE (00:15)
[2021-02-03] MEDS ORDERED: VANCOMYCIN 1 GM/VIAL ONE (00:33)
[2021-02-03] MEDS ORDERED: NA CHLORIDE 0.9% 100 ML ONE (00:34)
[2021-02-03] MEDS: DIGOXIN 0.125 MG TABLET PO SCH ×2 (00:45→20:03)
[2021-02-03] MEDS: ATORVASTATIN 40 MG TAB PO SCH ×2 (00:45→20:04)
[2021-02-03 06:19] LABS: Basophils % 0.6 % (0-1.3); Hematocrit 43.6 % (39.6-49.0); Lymphocytes % 12.6 % (15.3-44.8); MPV 7.8 fL (7.6-11.3); RBC Red Blood Cell Count 4.82 M/uL (4.33-5.43)
[2021-02-03 06:38] LABS: ALT/SGPT 29 U/L (12-78); AST/SGOT 17 U/L (15-37); Albumin 3.2 g/dL (3.4-5.0); Alkaline Phosphatase 147 U/L (45-117); BUN Blood Urea Nitrogen 26 mg/dL (7-18); Bicarbonate 27 mmol/L (21-32); Bilirubin Total 0.6 mg/dL (0.2-1.0); Glucose Level 112 mg/dL (74-106); HDL Cholesterol 46 mg/dL (40-60); LDL Cholesterol, Calculated 59 (<130); Potassium 3.9 mmol/L (3.5-5.1); Protein, Total 7.7 g/dL (6.4-8.2); Sodium Level 142 mmol/L (136-145); Troponin I < 0.02 ng/mL (0.0-0.045)
[2021-02-03] MEDS ORDERED: POTASSIUM CL SA 10 MEQ TAB PO ONE (07:07)
--- NOTE | 2021-02-03 07:41 | RAD REPORT ---
EXAM DESCRIPTION: Camille Single View02/03/2021 4:40 am CLINICAL HISTORY: Chest pain COMPARISON: November 2020 FINDINGS: Small left pleural effusion without significant change. Left basilar atelectasis. Remainder of the lungs appear clear. Heart remains enlarged. Postsurgical changes involve the chest
[2021-02-03] MEDS: Levofloxacin500mg IV 500 MG/100 ML BAG IV SCH (07:59)
[2021-02-03] MEDS: ASPIRIN EC 81 MG TAB PO SCH (08:00)
[2021-02-03] MEDS: NIFEDIPINE XL 60 MG TABLET PO SCH (08:00)
[2021-02-03] MEDS: FUROSEMIDE 40 MG TABLET PO SCH (08:01)
[2021-02-03] MEDS: SPIRONOLACTONE 25 MG TABLET PO SCH (08:01)
[2021-02-03] MEDS ORDERED: ACETAMINOPHEN 325 MG TABLET PO PRN (13:58)
--- NOTE | 2021-02-03 14:03 | P.PN ---
Subjective Date of Service: 02/03/21 Primary Care Provider: DR. Ballard Chief Complaint: Cellulitis Subjective: Improving (feels slight improvement in pain at R foot, swelling is about the same. No drainage. Otherwise doing ok.) Review of Systems 10-point ROS is otherwise unremarkable Physical Examination - Vital Signs Temperature: 98.8 F Blood Pressure: 148/85 Pulse: 83 Respirations: 18 Pulse Ox (%): 97 - Studies Laboratory Data (last 24 hrs) 02/02/21 20:30: Sodium 140, Potassium 3.8, BUN 27 H, Creatinine 0.94, Glucose 103, Total Bilirubin 0.7, AST 20, ALT 31, Alkaline Phosphatase 164 H 02/02/21 20:30: WBC 10.20, Hgb 14.5, Hct 43.1, Plt Count 268 Assessment & Plan Physician Review Additional Text: Physical Exam General: Alert, In no apparent distress HEENT: normal conjunctiva, sclera anicteric Respiratory: Clear to auscultation bilaterally, Normal air movement Cardiovascular: Regular rate/rhythm, Normal S1 S2 Gastrointestinal: soft, nontender, nondistended Ext: R foot: dorsum with erythema, tenderness, and warmth, no drainage Neurological: Normal speech, Normal strength at 5/5 x4 extr Problem List Cellulitis with abscess of the right lower extremity failed outpatient therapy Atrial fibrillation not on chronic anticoagulation therapy Chronic diastolic congestive heart failure with history of CAD status post CABG Hypertension Hyperlipidemia History of CVA -continue IV levaquin/vanc -general surgery consulted, awaiting further recommendations, unknown when will have OR availability -large abscess on dorsum of R foot, would benefit from I&D -patient otherwise stable -asking to minimize use of opioids/morphine, added tylenol for patient when he can take PO, discussed possibly tramadol as well -continue home medications when taking PO VTE: SCDs for surgery Code: full Dispo: anticipate dc home in ~48hrs Time Spent Managing Pts Care (In Minutes): 35
--- NOTE | 2021-02-03 16:04 | CON ---
Date of Consultation: 02/03/2021 Reason For Service: Right foot cellulitis. History Of Present Illness: This is the case of a 80-year-old patient with history of multiple medic al problems including AFib, hypertension, CVA with a long-term history of at least for a week or so o f a cellulitis of the right foot. The patient started on Keflex. The area did not improve [facility] in the last few hours with cellulitis over the foot and ankle region, admitted fo r IV antibiotics, and a surgical consult was obtained for a possibility of incision and drainage. He denies any trauma in that region. Medications: Include Cozaar, Procardia, Aldactone, Lasix. Allergies: NONE. Past Medical History: Once again CVA, , hyperlipidemia, congestive heart failure. Past Surgical History: Includes knee surgery, prostate surgery, CABG x2, kidney surgery. Social History: He does not smoke. He does not drink alcohol. Though, he used to smoke. Review of Systems: Denies any shortness of breath, any chest pain, any fever. See H and P. Physical Examination: General: The patient is awake, alert. HEENT: Pupils anicteric. Chest: Clear. Abdomen: Soft and depressible. Extremities: Good capillary refill, although diminished peripheral pulses bilaterally. The patient has a cellulitis over the foot and also ankle region. There was an area that is trying to delineate in the dorsum of the foot. I believe that the area that is the main culprit for this, so to debride. There is no crepitus present. No cyanosis. Laboratory Data: Blood work shows a WBC count of 8.1 coming down from 10.2, hemoglobin of 14.5. Chl oride is 108. X-ray of the foot interpreted by Dr. Dickinson as soft tissue swelling, no acute fractures. Assessment: It is a 80-year-old patient, comes to us with cellulitis of the foot on the ankle, failu re of outpatient treatment, started on IV antibiotics and a surgical consult was obtained. I believe the patient will need an I and D as the dorsum of the foot is delineating. So, I explained to him t he area most likely we are going to have to do debridement, although it is still delineating and may be more extensive. He has extensive cardiac history. He is very tender in that region, so we are go ing to have to give him some anesthetic and we will request cardiac evaluation to see how safe this i s to put him sleep and . We will continue with antibiotics. The patient fully explained t he need for debridement of the necrotic ulcer on the right foot with drainage of an abscess, which in clude, but not limited to infection, bleeding, damage to adjacent structures, anesthesia complication , nonhealing wound, SC, and even . He also understands this may not relieve any symptoms. He m ight need more than one surgical intervention. This will require wound care and the patient also und erstands that he will need to have with his primary doctor a peripheral vascular disease workup. YANET/DENNY Voice ID: [id number] Report ID: [id number]
[2021-02-03 16:58] LABS: Urine Appearance CLEAR (Clear); Urine Bilirubin NEGATIVE (Negative); Urine Blood 2+ (Negative); Urine Color YELLOW (Yellow); Urine Glucose NEGATIVE (Negative); Urine Protein NEGATIVE (Negative); Urine Urobilinogen 0.2 mg/dL (0.2-1.0); Urine pH 5.5 (5.0-7.0)
[2021-02-03 17:15] LABS: Urine Microscopic Reflex ORDER UMIC
--- NOTE | 2021-02-03 17:40 | EKG ---
Test Date: 2021-02-03 Test Time: 09:13:54 Diet Kitchen Cook: JAMARI MEASUREMENT RESULTS: Intervals: Rate: 94 FL: QRSD: 96 QT: 366 QTc: 457 Hoffman: P: FL: QRS: 64 T: 213 INTERPRETIVE STATEMENTS: Atrial fibrillation with premature ventricular or aberrantly conducted complexes Septal infarct, age undetermined ST & T wave abnormality, consider lateral ischemia or digitalis effect Abnormal ECG Compared to ECG 11/28/2020 16:43:43 No significant changes Electronically Signed On 02-03-21 17:39:59 CDT by Gerardo Ramirez
[2021-02-03] MEDS: VANCOMYCIN 1.5 GM in NA CHLORIDE 0.9% 500 ML IVPB SCH (17:45)
[2021-02-03] MEDS ORDERED: VANCOMYCIN 1.25 GM in NA CHLORIDE 0.9% 250 ML IVPB SCH ×2 (18:00→19:00)
[2021-02-03 18:35] LABS: Urine Bacteria <20 /HPF (NONE SEEN)
[2021-02-03] MEDS ORDERED: DIGOXIN 0.125 MG TABLET PO SCH (21:00)
[2021-02-03] MEDS ORDERED: ATORVASTATIN 40 MG TAB PO SCH (21:00)
[2021-02-03] MEDS: TRAMADOL HCL 50 MG TAB PO PRN (22:36)
[2021-02-04 05:32] LABS: Absolute Lymphocytes (CBC) 1.3 K/uL (0.7-4.9); Basophils % 0.7 % (0-1.3); Hematocrit 45.7 % (39.6-49.0); Lymphocytes % 17.5 % (15.3-44.8); MPV 7.8 fL (7.6-11.3); RBC Red Blood Cell Count 5.07 M/uL (4.33-5.43)
[2021-02-04 05:50] LABS: Albumin 3.4 g/dL (3.4-5.0); Bilirubin Total 0.9 mg/dL (0.2-1.0); Magnesium 2.2 mg/dL (1.8-2.4); Potassium 4.1 mmol/L (3.5-5.1); Protein, Total 7.7 g/dL (6.4-8.2)
[2021-02-04] MEDS: Levofloxacin500mg IV 500 MG/100 ML BAG IV SCH (08:17)
[2021-02-04] MEDS: SPIRONOLACTONE 25 MG TABLET PO SCH (08:17)
[2021-02-04] MEDS: FUROSEMIDE 40 MG TABLET PO SCH (08:17)
[2021-02-04] MEDS: NIFEDIPINE XL 60 MG TABLET PO SCH (08:17)
[2021-02-04] MEDS: ASPIRIN EC 81 MG TAB PO SCH (08:17)
[2021-02-04] MEDS: VANCOMYCIN 1.5 GM in NA CHLORIDE 0.9% 500 ML IVPB SCH (12:34)
[2021-02-04] MEDS ORDERED: Ringers Lactate 1,000 ML IV ONE (14:00)
[2021-02-04] MEDS ORDERED: propofoL 200 MG/20 ML VIAL IV ONE (15:13)
[2021-02-04] MEDS ORDERED: LIDOCAINE 1% MPF 5 ML VIAL ONE (15:14)
[2021-02-04] MEDS ORDERED: FENTANYL CITR 100 MCG/2 ML ONE (15:14)
[2021-02-04] MEDS ORDERED: ONDANSETRON 4 MG/2 ML VIAL ONE (15:14)
--- NOTE | 2021-02-04 15:26 | P.BOP ---
Preoperative diagnosis: right foot cellulitis and necrotic wound Postoperative diagnosis: same Primary procedure: Debridment of infected necrotic wound right foot 7x5 cm Estimated blood loss: <10cc Specimen: culture, devitalized tissue Findings: see dicta Anesthesia: General Drain(s): Other (iodoform ) Transferred to: Recovery Room Condition: Good
--- NOTE | 2021-02-04 15:57 | P.PN ---
Subjective Date of Service: 02/04/21 Primary Care Provider: DR. Ballard Chief Complaint: Cellulitis Subjective: No new changes (feels swelling has improved, pain slightly improved, no drainage, still red and tender. to go to OR today for I &D) Review of Systems 10-point ROS is otherwise unremarkable Physical Examination - Vital Signs Temperature: 98 F Blood Pressure: 142/90 Pulse: 92 Respirations: 16 Pulse Ox (%): 96 Assessment & Plan Physician Review Additional Text: Physical Exam General: Alert, In no apparent distress HEENT: normal conjunctiva, sclera anicteric Respiratory: Clear to auscultation bilaterally, Normal air movement Cardiovascular: Regular rate/rhythm, Normal S1 S2 Gastrointestinal: soft, nontender, nondistended Ext: R foot: dorsum with erythema, tenderness, and warmth, no drainage Problem List Cellulitis with abscess of the right lower extremity failed outpatient therapy Atrial fibrillation not on chronic anticoagulation therapy Chronic diastolic congestive heart failure with history of CAD status post CABG Hypertension Hyperlipidemia History of CVA -continue IV levaquin/vanc -large abscess on dorsum of R foot, would benefit from I&D -general surgery consulted, to go to OR today. may need further debridement/washout, pending surgical findings -blood cultures negative so far -patient otherwise stable -asking to minimize use of opioids/morphine, added tylenol for patient when he can take PO, discussed possibly tramadol as well -continue home medications VTE: SCDs for surgery Code: full Dispo: anticipate dc home in ~48hrs - possibly longer if needing further debridement Time Spent Managing Pts Care (In Minutes): 35
[2021-02-04] MEDS: DIGOXIN 0.125 MG TABLET PO SCH (20:43)
[2021-02-04] MEDS: ATORVASTATIN 40 MG TAB PO SCH (20:43)
[2021-02-04] MEDS: TRAMADOL HCL 50 MG TAB PO PRN (22:59)
--- NOTE | 2021-02-04 23:23 | OP ---
Date of Procedure: 02/04/2021 Surgeon: Yoel Marinelli MD Preoperative Diagnosis: Right foot cellulitis and necrotic wound. Postoperative Diagnosis: Right foot cellulitis and necrotic wound. Procedure: Debridement of infected necrotic wound, right foot, 7 x 5 cm with drainage of an abscess and hematoma. Anesthesia: General plus local. Findings: The patient has a combination of infected hematoma, a large area present with displacement of the fat and necrotic fat present. I believe caused primarily by the hematoma displacing the fat. Bone and tendon seems to be intact. Indications: This is the case of a male, who comes to us with cellulitis, not improving as an outpat ient of the right foot, admitted to the hospital for IV antibiotics and a surgical consult was obtain ed for debridement of the necrotic area. The benefits, alternatives, and risks of debridement and dr crowley of an abscess were fully explained to the patient, which include, but not limited to infection , bleeding, damage to adjacent structures, anesthesia complication, nonhealing wound, CO, and even de ath. He also understands this may not relieve any symptoms. He might need more than one surgical in tervention. He understood and signed a consent. Procedure In Detail: The patient was brought to the operating room and placed in supine position. A nesthesia was done without complication. A time-out was called. Right foot was prepped and draped i n usual sterile fashion. We replaced local anesthetic followed by sharp incision of the skin around the area of the devitalized tissue and medially we got what looked like an infected hematoma. Large piece of clot coming from the area, displacing the fat out of that region. All the hematoma was juan j ary with looks like infected abscess and then area was profusely irrigated, hemostasis was obtained, and the area was packed with iodoform quarter of an inch. The patient tolerated the procedure well. The patient is on his way to recovery in stable condition. HM/MODL Voice ID: [id number] Report ID: [id number]
[2021-02-05 05:51] LABS: Absolute Lymphocytes (CBC) 0.9 K/uL (0.7-4.9); Basophils % 0.6 % (0-1.3); Hematocrit 40.6 % (39.6-49.0); Lymphocytes % 9.1 % (15.3-44.8); MPV 7.9 fL (7.6-11.3); RBC Red Blood Cell Count 4.54 M/uL (4.33-5.43)
[2021-02-05 06:10] LABS: Albumin 2.8 g/dL (3.4-5.0); Bilirubin Total 1.1 mg/dL (0.2-1.0); Magnesium 1.9 mg/dL (1.8-2.4); Protein, Total 6.9 g/dL (6.4-8.2)
[2021-02-05] MEDS: VANCOMYCIN 1.5 GM in NA CHLORIDE 0.9% 500 ML IVPB SCH (06:24)
[2021-02-05] MEDS: FUROSEMIDE 40 MG TABLET PO SCH (07:40)
[2021-02-05] MEDS: ASPIRIN EC 81 MG TAB PO SCH (07:40)
[2021-02-05] MEDS: SPIRONOLACTONE 25 MG TABLET PO SCH (07:40)
[2021-02-05] MEDS: NIFEDIPINE XL 60 MG TABLET PO SCH (07:40)
[2021-02-05 07:47] VITALS: O2SAT 96
[2021-02-05] MEDS: Levofloxacin500mg IV 500 MG/100 ML BAG IV SCH (08:29)
--- NOTE | 2021-02-05 10:48 | P.DS ---
Admission Date: 02/02/21 Discharge Date: 02/05/21 Primary Care Provider: DR. Ballard Disposition: ROUTINE DISCHARGE Discharge Condition: GOOD Reason for Admission: Cellulitis Consultations: General Surgery - Dr. Marinelli Procedures: Foot Xray (02/02): Moderate soft tissue swelling is seen along the dorsum of the midfoot. No acute fracture or dislocation seen. Moderate posterior and plantar calcaneal spurs. CXR (02/02): Small left pleural effusion without significant change. Left basilar atelectasis. Remainder of the lungs appear clear. Heart remains enlarged. Postsurgical changes involve the chest Debridement of infected necrotic wound, right foot, 7 x 5 cm with drainage of an abscess and hematoma (02/04) by Dr. Marinelli. Problem List Cellulitis with abscess of the right lower extremity, failed outpatient therapy Atrial fibrillation not on chronic anticoagulation therapy Chronic diastolic congestive heart failure with history of CAD status post CABG Hypertension Hyperlipidemia History of CVA Brief History of Present Illness: 80-year-old male with history of paroxysmal atrial fibrillation, hypertension, CVA presents emergency department for cellulitis. Patient reports that he had an injury on January 23 with someone that he was working with in began antibiotic therapy on January 28 with Keflex. Patient noticed redness and swelling were getting worse and was seen by his primary care doctor who referred him to the emergency department for evaluation. Patient noted to have a large area of cellulitis of the dorsum of the right foot and ankle area with area of fluctuance noted to the dorsum. X-rays unremarkable aside from some soft tissue swelling to the dorsum of the foot, labs significant for white blood cell count 10.2. Patient was started on Levaquin and vancomycin in the emergency department, General Surgery was consulted for incision and drainage. Hospital Course: Patient was empirically treated with IV antibiotics. He underwent I&D by Dr. Marinelli on 02/04. Blood cultures remained negative. Gram stain of the abscess was negative for any organisms. He was discharged home with Bactrim and to continue wet to dry dressings twice a day. He is to follow up with Dr. Marinelli in wound clinic this coming Tuesday. Vital Signs/Physical Exam: Physical Exam General: Alert, In no apparent distress HEENT: normal conjunctiva, sclera anicteric Respiratory: Clear to auscultation bilaterally, Normal air movement Cardiovascular: Regular rate/rhythm, Normal S1 S2 Gastrointestinal: soft, nontender, nondistended Ext: R foot: dressing in place, clean/dry/intact Temp Pulse Resp BP Pulse Ox 97.7 F 85 19 131/79 96 02/05/21 08:00 02/05/21 08:00 02/05/21 08:00 02/05/21 08:00 02/05/21 08:00 Laboratory Data at Discharge: WBC 9.50 K/uL (4.3-10.9) D 02/05/21 05:25 Hgb 13.7 g/dL (13.6-17.9) 02/05/21 05:25 Hct 40.6 % (39.6-49.0) 02/05/21 05:25 Plt Count 244 K/uL (152-406) 02/05/21 05:25 Sodium 141 mmol/L (136-145) 02/05/21 05:25 Potassium 4.0 mmol/L (3.5-5.1) 02/05/21 05:25 BUN 22 mg/dL (7-18) H 02/05/21 05:25 Creatinine 0.90 mg/dL (0.55-1.3) 02/05/21 05:25 Glucose 102 mg/dL (74-106) 02/05/21 05:25 Magnesium 1.9 mg/dL (1.8-2.4) 02/05/21 05:25 Total Bilirubin 1.1 mg/dL (0.2-1.0) H 02/05/21 05:25 AST 14 U/L (15-37) L 02/05/21 05:25 ALT 26 U/L (12-78) 02/05/21 05:25 Alkaline Phosphatase 140 U/L (45-117) H 02/05/21 05:25 Troponin I < 0.02 ng/mL (0.0-0.045) 02/03/21 06:01 Triglycerides 107 mg/dL (<150) 02/03/21 06:01 Cholesterol 126 mg/dL (<200) 02/03/21 06:01 HDL Cholesterol 46 mg/dL (40-60) 02/03/21 06:01 Cholesterol/HDL Ratio 2.74 02/03/21 06:01 Home Medications: Fluticasone/Vilanterol [Breo Ellipta 100-25 Mcg INH] 1 puff IH DAILY 07/27/20 Aspirin [Aspirin EC 81 MG] 81 mg PO DAILY #30 tablet.dr 07/29/20 Atorvastatin Calcium [Lipitor] 40 mg PO BEDTIME #30 tab 07/29/20 Nifedipine Xl [Procardia XL*] 60 mg PO DAILY #30 tab 07/29/20 Digoxin 125 mcg PO BEDTIME 11/28/20 Spironolactone [Aldactone*] 25 mg PO DAILY 11/28/20 Furosemide [Lasix] 80 mg PO DAILY 02/03/21 Mometasone/Formoterol [Dulera 200 Mcg/5 Mcg Inhaler] 2 puff IH PRN PRN 02/03/21 tadalafiL [Tadalafil] 20 mg PO DAILY 02/03/21 Docusate [Colace Cap] 100 mg PO DAILY 30 Days #30 cap 02/05/21 Smz./Tmp. [Bactrim Ds 800 MG/160 MG] 1 tab PO BID 12 Days #24 tab 02/05/21 traMADol HCL [Ultram*] 50 mg PO Q8H PRN 5 Days #15 tab 02/05/21 New Medications: Smz./Tmp. [Bactrim Ds 800 MG/160 MG] 1 tab PO BID 12 Days #24 tab Docusate [Colace Cap] 100 mg PO DAILY 30 Days #30 cap traMADol HCL [Ultram*] 50 mg PO Q8H PRN 5 Days #15 tab PRN Reason: Pain Scale 8-10 (Severe) Diet: AHA Activity: Ad tiny Followup: Eriberto Ballard MD [Primary Care Provider] - Yoel Marinelli MD [ACTIVE - CAN ADMIT] - Time spent managing pt's care (in minutes): 35
[2021-02-05 14:34] VITALS: BP 134/74; TEMP 97.8
== END 2021-02-05 12:25 | disposition home health service (06) | DRG 603 ==
LOC: ER 16:48 → ERHOLD 20:47 → 2ND 23:09
PROVIDERS: ADMIT Emergency Medicine; ATTEND Hospitalist
PROC: 0HBMXZZ Excision of Right Foot Skin, External Approach (ICD-10-PCS; principal; 2021-02-04 15:00)
DX: L03.115 Cellulitis of right lower limb (principal); I50.32 Chronic diastolic (congestive) heart failure; I13.0 Hypertensive heart and chronic kidney disease with heart failure and stage 1 through stage 4 chronic kidney disease, or unspecified chronic kidney disease; L02.611 Cutaneous abscess of right foot; N18.30 Chronic kidney disease, stage 3 unspecified; I25.10 Atherosclerotic heart disease of native coronary artery without angina pectoris; I48.91 Unspecified atrial fibrillation; E78.5 Hyperlipidemia, unspecified; Z79.82 Long term (current) use of aspirin; Z79.899 Other long term (current) drug therapy; Z86.73 Personal history of transient ischemic attack (TIA), and cerebral infarction without residual deficits; Z90.49 Acquired absence of other specified parts of digestive tract; Z95.1 Presence of aortocoronary bypass graft; Z20.822 Contact with and (suspected) exposure to COVID-19
CPT/HCPCS: 36415; 71045; 80053; 80061; 80202; 81003; 81015; 83605; 83735; 84145; 84439; 84443; 84484; 85025; 87040; 87070; 87075; 87205; 88304; 90471; 90714; 93005; 96365; 96366; 96375; 99285; J0690; J0692; J2270; J2405; J2704; J3010; J3370; J7040; J7050; J7120; U0003

== ENCOUNTER → 2023-10-30 | Emergency (ER) | payer OTHER ==
[~2023-10-30] MED LIST: NA CHLORIDE 0.9% 500 ML ONE; PANTOPRAZOLE 40 MG INJ ONE
[2023-10-30 10:59] LABS: Absolute Lymphocytes (CBC) 1.4 K/uL (0.7-4.9); Hematocrit 23.6 % (39.6-49.0); Lymphocytes % 15.4 % (15.3-44.8); MCV 86.1 fL (80-100); MPV 7.7 fL (7.6-11.3); Platelets 316 thou/uL (152-406); RBC Red Blood Cell Count 2.74 M/uL (4.33-5.43)
[2023-10-30 11:04] LABS: Protime INR 1.31
[2023-10-30 11:18] LABS: Albumin 2.6 g/dL (3.4-5.0); Bilirubin Direct 0.2 mg/dL (0-0.2); Bilirubin Indirect, Calculated 0.4 mg/dL (0.2-0.8); Bilirubin Total 0.6 mg/dL (0.2-1.0); Magnesium 2.1 mg/dL (1.6-2.4); Potassium 3.7 mEq/L (3.5-5.1); Protein, Total 6.5 g/dL (6.4-8.2); Troponin High Sensitivity 38.3 pg/mL (<58.9)
--- NOTE | 2023-10-30 13:37 | RAD REPORT ---
EXAM DESCRIPTION: Camille Single View10/30/2023 10:58 am CLINICAL HISTORY: Shortness of breath COMPARISON: 2021 FINDINGS: Small to moderate left pleural effusion. Left basilar opacities may represent atelectasis Remainder of the lungs appear clear of acute infiltrate. Pulmonary vascular congestion present. Heart moderately to markedly enlarged. Postsurgical changes involve the chest
--- NOTE | 2023-10-30 13:37 | RAD REPORT ---
EXAM DESCRIPTION: CT - Abdomen Pelvis W Contrast - 10/30/2023 1:23 pm CLINICAL HISTORY: Abdominal pain COMPARISON: 2015 TECHNIQUE: Computed axial tomography of the abdomen and pelvis was obtained. 100 cc Isovue-300 is ad ministered intravenously. Oral contrast was given. All CT scans are performed using dose optimization technique as appropriate and may include automated exposure control or mA/KV adjustment according to patient size. FINDINGS: Prominent left and caudate lobes of the liver. Mildly nodular contour of the liver. This l ikely indicates chronic disease. Spleen, pancreas and adrenals unremarkable. Bilateral renal calculi. No hydronephrosis. Prostate gland is mildly to moderately enlarged. Cholecystectomy There is no evidence of diverticulitis moderate amount stool within the colon Proximal ascending thoracic aorta 4.4 centimeters IMPRESSION: Moderate amount stool within the colon. Small to moderate left and small right pleural effusions Left lower lobe opacities probably atelectasis. Followup chest film in 1 month is recommended for re- evaluation Set
--- NOTE | 2023-10-30 15:07 | EDPHYS ---
Physician Documentation [facility] Name: Donell Valle Jr Age: 83 yrs Sex: Male : 1940 Arrival Date: 10/30/2023 Time: 10:29 Bed 5 Private MD: ED Physician Augustus Sahu HPI: 10/30 10:44 This 83 yrs old Male presents to ER via Ambulatory with complaints of Breathing sp3 Difficulty, Constipation. 10:44 83-year-old male with history of atrial fibrillation on Eliquis, COPD, hypertension, sp3 CAD status post CABG, umbilical hernia now presents to the ED with chief complaint of dyspnea on exertion, continued abdominal pain and dark stools for 8 days. Patient states his difficulty breathing has been off and on for the last month. He sees Dr. Khoury from pulmonology for COPD he has been off and on home O2 for the last year. He denies any productive cough, chest pain, shortness of breath at rest, fever, URI symptoms, vomiting, rash, bleeding, or any other concerning ROS at this time.. Historical: - Allergies: 10:43 Sulfa (Sulfonamide Antibiotics); hb - Home Meds: 10:43 aspirin 81 mg Oral TbEC 1 tab once daily [Active]; digoxin 125 mcg Oral tab 1 tab once hb daily [Active]; Lasix 80 mg oral tablet 2 times per day [Active]; nifedipine 60 mg Oral TbER 1 tab once daily [Active]; tadalafil 20 mg Oral once daily [Active]; Protonix 40 mg oral tablet, delayed release (enteric coated) daily [Active]; Breo Ellipta 100-25 mcg/dose inhalation Blister, With Inhalation Device daily [Active]; albuterol sulfate 90 mcg/actuation Inhl Aerosol Powder, Breath Activated as needed [Active]; - PMHx: 10:43 Atrial Fib; CVA; Hypertension; hb - Immunization history:: Client reports receiving the 2nd dose of the Covid vaccine, Flu vaccine is not up to date. It has been more than one year since last vaccine. - Social history:: Smoking status: Patient denies any tobacco usage or history of. ROS: 10:46 Constitutional: Negative for fever, chills, and weight loss, Eyes: Negative for injury, sp3 pain, redness, and discharge, ENT: Negative for injury, pain, and discharge, Neck: Negative for injury, pain, and swelling, Back: Negative for injury and pain, MS/Extremity: Negative for injury and deformity, Skin: Negative for injury, rash, and discoloration, Neuro: Negative for headache, weakness, numbness, tingling, and seizure, Psych: Negative for depression, anxiety, suicide ideation, homicidal ideation, and hallucinations, Allergy/Immunology: Negative for hives, rash, and allergies, Endocrine: Negative for neck swelling, polydipsia, polyuria, polyphagia, and marked weight changes, 10:46 All other systems are negative, Exam: 10:46 Constitutional: This is a well developed, well nourished patient who is awake, alert, sp3 and in no acute distress. Head/Face: Normocephalic, atraumatic. Eyes: Pupils equal round and reactive to light, extra-ocular motions intact. Lids and lashes normal. Conjunctiva and sclera are non-icteric and not injected. Cornea within normal limits. Periorbital areas with no swelling, redness, or edema. ENT: Nares patent. No nasal discharge, no septal abnormalities noted. External auditory canals are clear. Oropharynx with no redness, swelling, or masses, exudates, or evidence of obstruction, uvula midline. Mucous membranes moist. Neck: Trachea midline, no thyromegaly or masses palpated, and no cervical lymphadenopathy. Supple, full range of motion without nuchal rigidity, or vertebral point tenderness. No Meningismus. Chest/axilla: Normal chest wall appearance and motion. Nontender with no deformity. No lesions are appreciated. Skin: Warm, dry with normal turgor. Normal color with no rashes, no lesions, and no evidence of cellulitis. 10:46 Cardiovascular: Irregularly irregular heartbeat consistent with atrial fibrillation., 10:46 ECG was reviewed by the Attending Physician. EKG demonstrates atrial fibrillation with ventricular capture at 80 bpm with normal axis, nonspecific diffuse ST/changes without evidence of acute ischemia. Subpar capture on EKG. 10:46 Respiratory: Scattered wheeze noted. No rales. Patient had respiratory distress on exertion after walking to his room. No pedal edema noted., 10:46 Abdomen/GI: Diffuse abdominal pain mild in nature on palpation. No peritoneal signs, rebound or guarding noted., Vital Signs: 10:35 BP 129 / 75; Pulse 74; Resp 33; Temp 98.4(TE); Pulse Ox 95% on R/A; Weight 81.65 kg; hb Height 6 ft. 4 in. ; Pain 0/10; 10:48 BP 129 / 75; Pulse 80; Resp 23; Pulse Ox 92% on R/A; ld1 11:22 BP 124 / 60; Pulse 74; Resp 20; Pulse Ox 95% on R/A; mb9 12:00 BP 136 / 77; Pulse 72; Resp 27; Pulse Ox 96% ; ld1 12:40 BP 136 / 66; Pulse 67; Resp 24; Pulse Ox 93% ; ld1 13:16 BP 148 / 85; Pulse 82; Resp 25; Pulse Ox 99% ; ld1 15:13 BP 131 / 97; Pulse 68; Pulse Ox 97% on 2 lpm NC; ld1 15:50 BP 125 / 66; Pulse 84; Resp 25; Pulse Ox 91% on 2 lpm NC; ld1 10:35 Body Mass Index 21.91 (81.65 kg, 193.04 cm) hb 10:35 Pain Scale: Adult hb MDM: 10:43 Patient medically screened. sp3 10:48 Data reviewed: vital signs, nurses notes, old medical records, lab test result(s), EKG, sp3 radiologic studies. ED course: 81-year-old male with dyspnea on exertion and mild abdominal pain. Differential diagnosis includes GI bleed inducing anemia causing dyspnea on exertion, primary lung process including COPD, pneumonia, bronchitis, URI, cardiovascular process including ACS, CHF, among others. Workup will be broad and will include EKG, laboratory values, chest x-ray, CT scan of the abdomen pelvis with IV and p.o. contrast and general observation. Protonix IV has been ordered x 1. Patient takes Lasix and Protonix at home but will hold on any other medications until better fidelity of patient's presenting process is achieved.. 12:09 ED course: Vital signs stable. We will transfuse 2 units of PRBCs given hemoglobin of sp3 7.8. I discussed with inpatient team here and given that we have GI coverage tomorrow, they would like us to transfer given no coverage this evening.. 10/30 10:39 Order name: Basic Metabolic Panel; Complete Time: 11:39 sp3 10/30 10:39 Order name: CBC with Diff; Complete Time: 11:39 sp3 10/30 10:39 Order name: LFT's; Complete Time: 11:39 sp3 10/30 10:39 Order name: Magnesium; Complete Time: 11:39 sp3 10/30 10:39 Order name: NT PRO-BNP; Complete Time: 11:39 sp3 10/30 10:39 Order name: PT-INR; Complete Time: 11:39 sp3 10/30 10:39 Order name: Troponin HS; Complete Time: 11:39 sp3 10/30 10:42 Order name: Type And Screen sp3 10/30 11:49 Order name: ABO/RH no charge; Complete Time: 11:59 EDMS 10/30 12:06 Order name: Bb Add On eb 10/30 12:20 Order name: Packed RBC Leukored EDMS 10/30 10:39 Order name: XRAY Chest (1 view); Complete Time: 13:41 sp3 10/30 10:42 Order name: CT Abd/Pelvis - PO and IV Contrast; Complete Time: 13:41 sp3 10/30 10:39 Order name: EKG; Complete Time: 10:40 sp3 10/30 10:39 Order name: Cardiac monitoring; Complete Time: 10:45 sp3 10/30 10:39 Order name: EKG - Nurse/Tech; Complete Time: 10:45 sp3 10/30 10:39 Order name: IV Saline Lock; Complete Time: 10:46 sp3 10/30 10:39 Order name: Labs collected and sent; Complete Time: 10:46 sp3 10/30 10:39 Order name: O2 Per Protocol; Complete Time: 10:46 sp3 10/30 10:39 Order name: O2 Sat Monitoring; Complete Time: 10:46 sp3 10/30 12:00 Order name: Transfuse: 2 units PRBCs; Complete Time: 12:48 sp3 Administered Medications: 10:50 Drug: Pantoprazole IVP 40 mg IVP once Route: IVP; Site: right upper arm; ld1 11:22 Follow up: Response: No adverse reaction mb9 Disposition Summary: 10/30/23 15:06 Transfer Ordered Notes: Transfer Location: [facility] sp3 Reason: Higher level of care sp3 Condition: Stable sp3 Problem: an acute exacerbation sp3 Symptoms: have worsened sp3 Accepting Physician: MARK(10/30/23 16:56) ld1 Diagnosis - Upper GI bleed, melena sp3 Forms: - Medication Reconciliation Form sp3 - SBAR form sp3 Signatures: Dispatcher [employer] EDMS Sophie Mansfield RN RN hb Estela Enamorado RN RN ld1 Augustus Sahu MD MD sp3 Angelina Wu RN mb9 Corrections: (The following items were deleted from the chart) 10:47 10:43 Allergies: NKDA; hb hb 12:19 12:00 PACKED RBC LEUKORED+BB.LAB.BRZ ordered. EDMS EDMS 12:19 12:02 ABO/RH typing ordered. EDMS EDMS 12:19 12:02 Antibody Screen ordered. EDMS EDMS 16:56 15:06 TBD sp3 ld1
--- NOTE | 2023-10-30 15:07 | ER ---
Nurse's Notes [facility] Name: Donell Valle Jr Age: 83 yrs Sex: Male : 1940 Arrival Date: 10/30/2023 Time: 10:29 Bed 5 Private MD: Diagnosis: Upper GI bleed, melena Presentation: 10/30 10:35 Chief complaint: Worsening SOB x 3 weeks, dark stool and constipation x 8 days. hb Coronavirus screen: At this time, the client does not indicate any symptoms associated with coronavirus-19. Ebola Screen: No symptoms or risks identified at this time. Initial Sepsis Screen: Does the patient meet any 2 criteria? RR > 20 per min. No. Patient's initial sepsis screen is negative. Does the patient have a suspected source of infection? No. Patient's initial sepsis screen is negative. Risk Assessment: Do you want to hurt yourself or someone else? Patient reports no desire to harm self or others. Onset of symptoms was September 2023. 10:35 Method Of Arrival: Ambulatory hb 10:35 Acuity: ALTAF 2 hb Historical: - Allergies: 10:43 Sulfa (Sulfonamide Antibiotics); hb - Home Meds: 10:43 aspirin 81 mg Oral TbEC 1 tab once daily [Active]; digoxin 125 mcg Oral tab 1 tab once hb daily [Active]; Lasix 80 mg oral tablet 2 times per day [Active]; nifedipine 60 mg Oral TbER 1 tab once daily [Active]; tadalafil 20 mg Oral once daily [Active]; Protonix 40 mg oral tablet, delayed release (enteric coated) daily [Active]; Breo Ellipta 100-25 mcg/dose inhalation Blister, With Inhalation Device daily [Active]; albuterol sulfate 90 mcg/actuation Inhl Aerosol Powder, Breath Activated as needed [Active]; - PMHx: 10:43 Atrial Fib; CVA; Hypertension; hb - Immunization history:: Client reports receiving the 2nd dose of the Covid vaccine, Flu vaccine is not up to date. It has been more than one year since last vaccine. - Social history:: Smoking status: Patient denies any tobacco usage or history of. Screenin:48 [facility] ED Fall Risk Assessment (Adult) History of falling in the last 3 months, ld1 including since admission No falls in past 3 months (0 pts). Abuse screen: Denies threats or abuse. Denies injuries from another. Nutritional screening: No deficits noted. Tuberculosis screening: No symptoms or risk factors identified. Assessment: 10:48 General: Appears in no apparent distress. comfortable, Behavior is calm, cooperative, ld1 appropriate for age. Pain: Denies pain. Neuro: Level of Consciousness is awake, alert, obeys commands, Oriented to person, place, time, situation. Cardiovascular: Capillary refill < 3 seconds Patient's skin is warm and dry. Rhythm is atrial fibrillation with rapid ventricular response. Respiratory: Airway is patent Respiratory effort is even, labored, Breath sounds are clear bilaterally. GI: Abdomen is flat, non-distended, Reports lower abdominal pain, upper abdominal pain, bloody stool. : No signs and/or symptoms were reported regarding the genitourinary system. EENT: No signs and/or symptoms were reported regarding the EENT system. Derm: No signs and/or symptoms reported regarding the dermatologic system. Musculoskeletal: No signs and/or symptoms reported regarding the musculoskeletal system. 12:00 Reassessment: No changes from previously documented assessment. Patient and/or family mb9 updated on plan of care and expected duration. Pain level reassessed. Patient is alert, oriented x 3, equal unlabored respirations, skin warm/dry/pink. 12:00 Reassessment: pt taken to CT via stretcher accompanied by nurse. Reassessment: No mb9 changes from previously documented assessment. Patient and/or family updated on plan of care and expected duration. Pain level reassessed. Patient is alert, oriented x 3, equal unlabored respirations, skin warm/dry/pink. 12:22 Reassessment: consent for RBC administration signed by pt. mb9 12:27 Reassessment: Transfusion consent and paperwork completed at this time. ld1 13:00 Reassessment: Blood transfusion started at 1245. ld1 14:00 Reassessment: Patient appears in no apparent distress at this time. No changes from ld1 previously documented assessment. Patient and/or family updated on plan of care and expected duration. Pain level reassessed. Patient is alert, oriented x 3, equal unlabored respirations, skin warm/dry/pink. 15:00 Reassessment: Patient appears in no apparent distress at this time. No changes from ld1 previously documented assessment. Patient and/or family updated on plan of care and expected duration. Pain level reassessed. Patient states symptoms have improved. 15:25 Reassessment: 2nd unit of PRBC infusing now. ld1 16:03 Reassessment: Patient appears in no apparent distress at this time. Patient states ld1 feeling better. Patient states symptoms have improved. Vital Signs: 10:35 BP 129 / 75; Pulse 74; Resp 33; Temp 98.4(TE); Pulse Ox 95% on R/A; Weight 81.65 kg; hb Height 6 ft. 4 in. ; Pain 0/10; 10:48 BP 129 / 75; Pulse 80; Resp 23; Pulse Ox 92% on R/A; ld1 11:22 BP 124 / 60; Pulse 74; Resp 20; Pulse Ox 95% on R/A; mb9 12:00 BP 136 / 77; Pulse 72; Resp 27; Pulse Ox 96% ; ld1 12:40 BP 136 / 66; Pulse 67; Resp 24; Pulse Ox 93% ; ld1 13:16 BP 148 / 85; Pulse 82; Resp 25; Pulse Ox 99% ; ld1 15:13 BP 131 / 97; Pulse 68; Pulse Ox 97% on 2 lpm NC; ld1 15:50 BP 125 / 66; Pulse 84; Resp 25; Pulse Ox 91% on 2 lpm NC; ld1 10:35 Body Mass Index 21.91 (81.65 kg, 193.04 cm) hb 10:35 Pain Scale: Adult hb ED Course: 10:32 Patient arrived in ED. mg5 10:33 Augustus Sahu MD is Attending Physician. sp3 10:43 Triage completed. hb 10:45 Angelina Wu RN is Primary Nurse. mb9 10:46 Inserted saline lock: 20 gauge in right upper arm, using aseptic technique. Blood ld1 collected. 10:47 Arm band placed on. hb 10:48 No provider procedures requiring assistance completed. ld1 10:48 Patient has correct armband on for positive identification. Placed in gown. Bed in low ld1 position. Call light in reach. Side rails up X2. meringuer on. Pulse ox on. NIBP on. Door closed. Noise minimized. Warm blanket given. 10:59 XRAY Chest (1 view) In Process Unspecified. EDMS 12:52 called and left message with Dr. Hassan for Dr. Sahu. eb 13:24 CT Abd/Pelvis - PO and IV Contrast In Process Unspecified. EDMS 13:45 initiated a transfer with Octavio Cuellar from the [facility]. eb 14:56 [facility] refused patient/ they do not have I. R backup on weekends. / eb She [place] [facility]. 15:[address] Schreiber the hospitalist general production laborer for [facility] with Dr. Sahu for eb patient transfer consultation. 15:20 administrative approval given by Octavio Cuellar Rn / patient has been accepted to [facility] room 1523/ Dr. Sharri Schreiber has accepted the patient in transfer/ report to be called to [phone]. 16:56 Patient transferred, IV remains in place. ld1 Administered Medications: 10:50 Drug: Pantoprazole IVP 40 mg IVP once Route: IVP; Site: right upper arm; ld1 11:22 Follow up: Response: No adverse reaction mb9 Medication: 10:48 VIS not applicable for this client. ld1 Outcome: 15:06 ER care complete, transfer ordered by . sp3 16:56 Transferred by ground EMS to [facility], [facility], ld1 16:56 Condition: stable 16:56 Instructed on the need for transfer, 16:56 Patient left the ED. ld1 Signatures: Dispatcher [employer] EDMS Sophie Mansfield RN RN Chandni Paniagua Estela Enamorado RN RN ld1 Augustus Sahu MD MD sp3 Angelina Wu RN RN mb9 Nena Rinaldi mg5 Corrections: (The following items were deleted from the chart) 10:47 10:43 Allergies: NKDA; hb hb 10:52 10:48 GI: Abdomen is flat, non-distended, ld1 mb9
[2023-10-30 18:50] VITALS: TEMP 98.4
[2023-10-30 19:08] VITALS: BP 125/66; O2SAT 91
--- NOTE | 2023-10-31 15:00 | EKG ---
Test Date: 2023-10-30 Test Time: 10:44:03 Farm Manager: YAYA MEASUREMENT RESULTS: Intervals: Rate: 80 IN: QRSD: 94 QT: 388 QTc: 447 [place]: P: IN: QRS: 66 T: 94 INTERPRETIVE STATEMENTS: Atrial fibrillation with premature ventricular or aberrantly conducted complexes ST & T wave abnormality, consider lateral ischemia Abnormal ECG Compared to ECG 02/03/2021 09:13:54 Myocardial infarct finding no longer present ST (T wave) deviation still present Possible ischemia still present Electronically Signed On 10-31-23 14:58:19 [employer]POR[employer] by Devonte Garrison
== END ==
LOC: ER 10:29
PROC: 30233N1 Transfusion of Nonautologous Red Blood Cells into Peripheral Vein, Percutaneous Approach (ICD-10-PCS; principal; 2023-10-30)
DX: K92.1 Melena (principal); I10 Essential (primary) hypertension; I48.91 Unspecified atrial fibrillation; Z86.73 Personal history of transient ischemic attack (TIA), and cerebral infarction without residual deficits; Z88.2 Allergy status to sulfonamides; Z79.82 Long term (current) use of aspirin
CPT/HCPCS: 93005; 85025; 80048; 36415; 86900; 83735; 86850; 85610; 86901; 80076; 86920 ×2; 84484; 83880; 74177; 71045; 36430; Q9967; C9113; P9016 ×2; J7050

== ENCOUNTER 2024-03-14 16:12 | Emergency (ER) | payer OTHER ==
[2024-03-14 17:22] LABS: Absolute Lymphocytes (CBC) 0.5 K/uL (0.7-4.9); Absolute Monocytes 1.1 K/uL (0.1-1.3); Absolute Neutrophil 9.3 K/uL (1.8-8.0); Hematocrit 21.4 % (39.6-49.0); Hemoglobin 6.6 g/dL (13.6-17.9); Lymphocytes % 4.8 % (15.3-44.8); MCH 23.9 pg (27.0-35.0); MCHC 30.6 g/dL (32.0-36.0); MCV 78.1 fL (80-100); MPV 7.4 fL (7.6-11.3); Monocytes % 10.1 % (3.3-12.3); Neutrophils % 85.1 % (41.7-73.7); Nucleated Red Blood Cells % 0.3 % (0-0); Platelets 294 thou/uL (152-406); RBC Red Blood Cell Count 2.75 M/uL (4.33-5.43); Red Cell Distribution Width 19.8 % (12.1-15.2)
[2024-03-14 17:29] LABS: PT Prothrombin Time 13.4 SECONDS (9.5-12.5); Protime INR 1.23
[2024-03-14 17:44] LABS: ALT/SGPT 20 U/L (16-61); Albumin/Globulin Ratio 0.8 (1.1-1.8); Alkaline Phosphatase 129 U/L (45-117); Anion Gap 14.8 mEq/L (5.0-15.0); BUN Blood Urea Nitrogen 135 mg/dL (7-18); Bicarbonate 24 mEq/L (21-32); Bilirubin Direct 0.4 mg/dL (0-0.2); Bilirubin Indirect, Calculated 0.3 mg/dL (0.2-0.8); Bilirubin Total 0.7 mg/dL (0.2-1.0); Globulin 3.8 g/dL (2.3-3.5); Glomerular Filtration Rate 27 ml/min (=/>90); Glucose Level 153 mg/dL (74-106); Magnesium 2.7 mg/dL (1.6-2.4); NT PRO-BNP 8997 pg/mL (<450); Potassium 4.8 mEq/L (3.5-5.1); Protein, Total 6.8 g/dL (6.4-8.2); Sodium Level 131 mEq/L (136-145); Troponin High Sensitivity 48.1 pg/mL (<58.9)
[2024-03-14 17:47] LABS: AST/SGOT < 10 U/L (15-37)
[2024-03-14] MEDS ORDERED: NA CHLORIDE 0.9% 250 ML ONE (18:58)
--- NOTE | 2024-03-14 20:02 | ER ---
Nurse's Notes [facility] Name: Donell Valle Jr Age: 83 yrs Sex: Male : 1940 Arrival Date: 03/14/2024 Time: 16:12 Bed 14 Private MD: Diagnosis: Anemia of unknown etiology Presentation: 03/14 16:31 Chief complaint: Patient states: sent by pcp, blood count is 6. Had labs drawn here ko1 yesterday. Coronavirus screen: At this time, the client does not indicate any symptoms associated with coronavirus-19. Ebola Screen: No symptoms or risks identified at this time. Initial Sepsis Screen: Does the patient meet any 2 criteria? No. Patient's initial sepsis screen is negative. Does the patient have a suspected source of infection? No. Patient's initial sepsis screen is negative. Risk Assessment: Do you want to hurt yourself or someone else? Patient reports no desire to harm self or others. Onset of symptoms is unknown. 16:31 Method Of Arrival: Wheelchair ko1 16:31 Acuity: ALTAF 3 ko1 Triage Assessment: 16:36 General: Appears ill, Behavior is calm, cooperative, appropriate for age. Pain: Denies ko1 pain. Historical: - Allergies: 16:36 Sulfa (Sulfonamide Antibiotics); ko1 - Home Meds: 16:36 albuterol sulfate 90 mcg/actuation Inhl Aerosol Powder as needed [Active]; Breo Ellipta ko1 100-25 mcg/dose inhalation Blister daily [Active]; digoxin 125 mcg Oral tab 1 tab once daily [Active]; aspirin 81 mg Oral TbEC 1 tab once daily [Active]; Lasix 80 mg Oral tablet 2 times per day [Active]; nifedipine 60 mg Oral TbER 1 tab once daily [Active]; Protonix 40 mg Oral tablet daily [Active]; tadalafil 20 mg Oral once daily [Active]; - PMHx: 16:36 Atrial Fib; CVA; Hypertension; ko1 - Immunization history:: Adult Immunizations up to date. - Infectious Disease History:: Denies. - Social history:: Smoking status: Patient denies any tobacco usage or history of. Screenin:45 [facility] ED Fall Risk Assessment (Adult) History of falling in the last 3 months, me1 including since admission No falls in past 3 months (0 pts) Confusion or Disorientation No (0 pts) Intoxicated or Sedated No (0 pts) Impaired Gait No (0 pts) Mobility Assist Device Used No (0 pt) Altered Elimination No (0 pt) Score/Fall Risk Level 0 - 2 = Low Risk Maintained a safe environment, Provided non-skid footwear, Hourly rounding (assess needs \T\ fall precautionary measures) done. Abuse screen: Denies threats or abuse. Nutritional screening: No deficits noted. Tuberculosis screening: No symptoms or risk factors identified. Assessment: 16:45 General: Appears comfortable, well groomed, well developed, well nourished, Behavior is me1 calm, cooperative, appropriate for age, Reports sent by pcp, blood count was 6. Had labs drawn here yesterday. HX: GI Bleeds. Pain: Denies pain. Neuro: Level of Consciousness is awake, alert, obeys commands, Oriented to person, place, time, situation, Appropriate for age. Cardiovascular: Patient's skin is warm and dry. Respiratory: Airway is patent Respiratory effort is even, unlabored, Respiratory pattern is regular, symmetrical. GI: Bowel sounds present X 4 quads. : No signs and/or symptoms were reported regarding the genitourinary system. EENT: No signs and/or symptoms were reported regarding the EENT system. Derm: Skin is healthy with good turgor, Skin is pale. Musculoskeletal: No signs and/or symptoms reported regarding the musculoskeletal system. 19:15 General: PRBC Unit # 1 started at 19:15. me1 20:01 General: PT to DC post blood transfusion. lg3 22:32 General: PRBC #2 started at 22:15. me1 03/15 00:41 Reassessment: Patient and/or family updated on plan of care and expected duration. Pain ha1 level reassessed. Patient is alert, oriented x 3, equal unlabored respirations, skin warm/dry/pink. blood transfusion completed Patient states feeling better. Patient states symptoms have improved. Vital Signs: 03/14 16:31 BP 107 / 56; Pulse 78; Resp 14; Temp 97.2; Pulse Ox 100% ; ko1 16:45 BP 116 / 72; Pulse 83; Resp 23; Pulse Ox 100% on R/A; me1 17:54 BP 115 / 70; Pulse 90; Resp 22; Pulse Ox 98% on R/A; me1 18:00 BP 122 / 65; Pulse 89; Resp 22; Pulse Ox 100% on R/A; me1 19:00 BP 110 / 74; Pulse 84; Resp 22; Pulse Ox 100% ; me1 20:00 BP 113 / 62; Pulse 87; Resp 21; Pulse Ox 96% on R/A; me1 21:00 BP 111 / 63; Pulse 84; Resp 18; Pulse Ox 96% on R/A; me1 22:00 BP 113 / 66; Pulse 86; Resp 18; Pulse Ox 100% on R/A; me1 23:00 BP 115 / 66; Pulse 84; Resp 21; Pulse Ox 100% on R/A; me1 23:45 BP 114 / 69; Pulse 90; Resp 21; Pulse Ox 100% on R/A; me1 03/15 00:00 BP 124 / 69; Pulse 88; Resp 17 S; Temp 97.8(T); Pulse Ox 99% on R/A; ha1 00:30 BP 118 / 67; Pulse 87; Resp 20 S; Pulse Ox 99% on R/A; ha1 ED Course: 03/14 16:14 Patient arrived in ED. ra3 16:16 Augustus Sahu MD is Attending Physician. sp3 16:36 Triage completed. ko1 16:36 Arm band placed on right wrist. Patient placed in an exam room, on a stretcher, on ko1 residential monitor, on pulse oximetry, Patient notified of wait time. 16:45 Patient has correct armband on for positive identification. Bed in low position. Call me1 light in reach. Side rails up X2. Provided Education on: POC. Verbalized understanding. . Client placed on continuous cardiac and pulse oximetry monitoring. NIBP monitoring applied. residential monitor on. Pulse ox on. NIBP on. 16:45 No provider procedures requiring assistance completed. me1 16:45 EKG done, by ED staff, reviewed by Augustus Sahu MD. me1 17:00 Inserted saline lock: 20 gauge in right forearm, using aseptic technique. Blood me1 collected. 17:16 Bailey Ramirez, JIM is Primary Nurse. me1 18:16 Bb Add On Sent. me1 20:28 Packed RBC Leukored Sent. me1 03/15 00:40 IV discontinued, intact, bleeding controlled, No redness/swelling at site. Pressure ha1 dressing applied. Administered Medications: No medications were administered Medication: 03/14 16:45 VIS not applicable for this client. me1 Outcome: 20:01 Discharge ordered by . li3 03/15 00:40 Discharged to home via wheelchair, with family, ha1 Condition: stable Discharge instructions given to patient, family, Instructed on discharge instructions, follow up and referral plans. Demonstrated understanding of instructions, follow-up care, 00:42 Patient left the ED. ha1 Signatures: Marsha Webb RN RN 3 Augustus Sahu MD MD sp3 Rosa Fuentes RN RN ha1 Jess Meek RN RN ko1 Bailey Ramirez RN RN me1 Tracy Dc ra3 Corrections: (The following items were deleted from the chart) 03/14 18:37 16:31 Chief complaint: Patient states: sent by pcp, blood count is 6. Had labs drawn me1 here yesterday ko1
--- NOTE | 2024-03-14 20:02 | EDPHYS ---
Physician Documentation [facility] Name: Donell Valle Jr Age: 83 yrs Sex: Male : 1940 Arrival Date: 03/14/2024 Time: 16:12 Bed 14 Private MD: ED Physician Augustus Sahu HPI: 03/14 17:05 This 83 yrs old Male presents to ER via Wheelchair with complaints of Abnormal Lab sp3 Results - Sent by pcp;lightheadedness. 17:05 83-year-old male with history of atrial fibrillation on Eliquis, COPD, hypertension, sp3 CAD status post CABG, umbilical hernia now presents to the ED with chief complaint being sent by Dr. Robles for blood transfusion. Patient has had history of anemia in the past. He has an appointment with gastroenterology tomorrow morning. He is here strictly for blood transfusion for a hemoglobin of 6.0 drawn yesterday. He complains of generalized weakness and mild dyspnea on exertion. Otherwise no chest pain, fever, melena, bright red blood per rectum, vomiting, abdominal pain or any other signs or symptoms on ROS at this time.. Historical: - Allergies: 16:36 Sulfa (Sulfonamide Antibiotics); ko1 - Home Meds: 16:36 albuterol sulfate 90 mcg/actuation Inhl Aerosol Powder as needed [Active]; Breo Ellipta ko1 100-25 mcg/dose inhalation Blister daily [Active]; digoxin 125 mcg Oral tab 1 tab once daily [Active]; aspirin 81 mg Oral TbEC 1 tab once daily [Active]; Lasix 80 mg Oral tablet 2 times per day [Active]; nifedipine 60 mg Oral TbER 1 tab once daily [Active]; Protonix 40 mg Oral tablet daily [Active]; tadalafil 20 mg Oral once daily [Active]; - PMHx: 16:36 Atrial Fib; CVA; Hypertension; ko1 - Immunization history:: Adult Immunizations up to date. - Infectious Disease History:: Denies. - Social history:: Smoking status: Patient denies any tobacco usage or history of. ROS: 17:08 Constitutional: Negative for fever, chills, and weight loss, Eyes: Negative for injury, sp3 pain, redness, and discharge, ENT: Negative for injury, pain, and discharge, Neck: Negative for injury, pain, and swelling, Respiratory: Negative for shortness of breath, cough, wheezing, and pleuritic chest pain, Back: Negative for injury and pain, MS/Extremity: Negative for injury and deformity, Skin: Negative for injury, rash, and discoloration, Allergy/Immunology: Negative for hives, rash, and allergies, Endocrine: Negative for neck swelling, polydipsia, polyuria, polyphagia, and marked weight changes, 17:08 All other systems are negative, Exam: 17:08 Constitutional: This is a well developed, well nourished patient who is awake, alert, sp3 and in no acute distress. Head/Face: Normocephalic, atraumatic. Eyes: Pupils equal round and reactive to light, extra-ocular motions intact. Lids and lashes normal. Conjunctiva and sclera are non-icteric and not injected. Cornea within normal limits. Periorbital areas with no swelling, redness, or edema. Neck: Trachea midline, no thyromegaly or masses palpated, and no cervical lymphadenopathy. Supple, full range of motion without nuchal rigidity, or vertebral point tenderness. No Meningismus. Chest/axilla: Normal chest wall appearance and motion. Nontender with no deformity. No lesions are appreciated. Cardiovascular: Regular rate and rhythm with a normal S1 and S2. No gallops, murmurs, or rubs. Normal PMI, no JVD. No pulse deficits. Respiratory: Lungs have equal breath sounds bilaterally, clear to auscultation and percussion. No rales, rhonchi or wheezes noted. No increased work of breathing, no retractions or nasal flaring. Abdomen/GI: Soft, non-tender, with normal bowel sounds. No distension or tympany. No guarding or rebound. No evidence of tenderness throughout. Back: No spinal tenderness. No costovertebral tenderness. Full range of motion. Skin: Warm, dry with normal turgor. Normal color with no rashes, no lesions, and no evidence of cellulitis. MS/ Extremity: Pulses equal, no cyanosis. Neurovascular intact. Full, normal range of motion. Neuro: Awake and alert, GCS 15, oriented to person, place, time, and situation. Cranial nerves II-XII grossly intact. Motor strength 5/5 in all extremities. Sensory grossly intact. Cerebellar exam normal. Normal gait. Psych: Awake, alert, with orientation to person, place and time. Behavior, mood, and affect are within normal limits. 17:55 ECG was reviewed by the Attending Physician. EKG demonstrates atrial fibrillation at 82 sp3 bpm with left bundle branch block and nonspecific ST changes. Vital Signs: 16:31 BP 107 / 56; Pulse 78; Resp 14; Temp 97.2; Pulse Ox 100% ; ko1 16:45 BP 116 / 72; Pulse 83; Resp 23; Pulse Ox 100% on R/A; me1 17:54 BP 115 / 70; Pulse 90; Resp 22; Pulse Ox 98% on R/A; me1 18:00 BP 122 / 65; Pulse 89; Resp 22; Pulse Ox 100% on R/A; me1 19:00 BP 110 / 74; Pulse 84; Resp 22; Pulse Ox 100% ; me1 20:00 BP 113 / 62; Pulse 87; Resp 21; Pulse Ox 96% on R/A; me1 21:00 BP 111 / 63; Pulse 84; Resp 18; Pulse Ox 96% on R/A; me1 22:00 BP 113 / 66; Pulse 86; Resp 18; Pulse Ox 100% on R/A; me1 23:00 BP 115 / 66; Pulse 84; Resp 21; Pulse Ox 100% on R/A; me1 23:45 BP 114 / 69; Pulse 90; Resp 21; Pulse Ox 100% on R/A; me1 03/15 00:00 BP 124 / 69; Pulse 88; Resp 17 S; Temp 97.8(T); Pulse Ox 99% on R/A; ha1 00:30 BP 118 / 67; Pulse 87; Resp 20 S; Pulse Ox 99% on R/A; ha1 MDM: 03/14 16:38 Patient medically screened. sp3 17:08 Data reviewed: vital signs, nurses notes, old medical records, lab test result(s), EKG. sp3 ED course: Atrial male with history of anemia currently being worked up with a gastroenterology appointment tomorrow here for blood transfusion x 2 units sent by his PCP. Will administer 2 units of PRBCs and discharge patient home with general precautions. Clinically have ruled out acute coronary syndrome, sepsis, shock, acute GI hemorrhage, or any other significant blood loss at this time. Patient is okay with the plan and will be discharged home after PRBC transfusion is complete. Vital signs are currently normal and patient is in no acute distress.. 20:00 ED course: Patient marked for discharge. Blood still being transfused. I discussed this sp3 with charge nurse who will also document. Patient will not be signed out to night physician other than if there is a complication.. 03/14 16:52 Order name: Basic Metabolic Panel 3 03/14 16:52 Order name: CBC with Diff 3 03/14 16:52 Order name: LFT's 3 03/14 16:52 Order name: Magnesium 3 03/14 16:52 Order name: NT PRO-BNP 3 03/14 16:52 Order name: PT-INR 3 03/14 16:52 Order name: Troponin HS [facility] 03/14 16:52 Order name: Type And Screen 3 03/14 16:57 Order name: Digoxin 3 03/14 17:18 Order name: Bb Add On bd 03/14 17:26 Order name: Packed RBC Leukored [facility] 03/14 16:52 Order name: EKG; Complete Time: 16:53 3 03/14 16:52 Order name: Cardiac monitoring; Complete Time: 17:00 3 03/14 16:52 Order name: EKG - Nurse/Tech; Complete Time: 18:43 3 03/14 16:52 Order name: IV Saline Lock; Complete Time: 17:00 3 03/14 16:52 Order name: Labs collected and sent; Complete Time: 17:00 3 03/14 16:52 Order name: O2 Per Protocol; Complete Time: 17:00 3 03/14 16:52 Order name: O2 Sat Monitoring; Complete Time: 17:00 3 03/14 17:10 Order name: Transfuse; Complete Time: 20:27 3 03/14 18:24 Order name: Labs - recollect needed: recollect type and screen, band pt; Complete Time: bd 18:28 Administered Medications: No medications were administered Disposition Summary: 03/14/24 20:01 Discharge Ordered Notes: Location: Home sp3 Condition: Stable sp3 Diagnosis - Anemia of unknown etiology sp3 Followup: sp3 - With: Private Physician - When: Upon discharge from the Emergency Department - Reason: Continuance of care Discharge Instructions: - Discharge Summary Sheet sp3 - Anemia sp3 Forms: - Medication Reconciliation Form sp3 - Antibiotic Education sp3 - Prescription Opioid Use sp3 - Patient Portal Instructions sp3 - Leadership Thank You Letter sp3 Signatures: Dispatcher [employer] EDMS Juliette Medina Setul, MD MD sp3 Jess Meek RN RN ko1 Corrections: (The following items were deleted from the chart) 17: 17:10 PACKED RBC LEUKORED+[id number].BRZ ordered. EDMS EDMS : 17:12 ABO/RH typing ordered. EDMS EDMS : 17:12 Antibody Screen ordered. EDMS EDMS
[2024-03-15 00:50] VITALS: TEMP 97.2; O2SAT 100
[2024-03-15 01:16] VITALS: BP 114/69
--- NOTE | 2024-03-15 16:16 | EKG ---
Test Date: 2024-03-14 Test Time: 17:46:51 Cabinetmaker Maintenance: MEASUREMENT RESULTS: Intervals: Rate: 82 SD: QRSD: 146 QT: 402 QTc: 469 [place]: P: SD: QRS: 262 T: 93 INTERPRETIVE STATEMENTS: Atrial fibrillation Nonspecific intraventricular block Abnormal ECG Compared to ECG 10/30/2023 10:44:03 Ventricular premature complex(es) no longer present ST (T wave) deviation no longer present Possible ischemia no longer present Electronically Signed On 03-15-24 16:16:09 CDT by Devonte Garrison
== END 2024-03-15 00:42 | disposition home or self-care (01) ==
LOC: ER 16:12
PROC: 30233N1 Transfusion of Nonautologous Red Blood Cells into Peripheral Vein, Percutaneous Approach (ICD-10-PCS; principal; 2024-03-15)
DX: D64.9 Anemia, unspecified (principal); Z79.82 Long term (current) use of aspirin
CPT/HCPCS: 93005; 85025; 80048; 36415; 86900; 83735; 86850; 85610; 80162; 86901; 80076; 86920 ×2; 84484; 83880; 99284; 36430; P9016 ×2; J7050

== ENCOUNTER 2024-03-30 12:26 | Inpatient (IN) | payer OTHER ==
[2024-03-30] MEDS ORDERED: FUROSEMIDE 40 MG/4 ML VIAL ONE (13:09)
[2024-03-30 13:34] LABS: PT Prothrombin Time 13.6 SECONDS (9.4-12.5); PTT, Activated Partial Thromb 28.8 SECONDS (24.3-36.9); Protime INR 1.24
--- NOTE | 2024-03-30 13:52 | RAD REPORT ---
EXAM DESCRIPTION: Camille Single View03/30/2024 1:28 pm CLINICAL HISTORY: Shortness of breath COMPARISON: October 2023 FINDINGS: Small to moderate left pleural effusion which may be partially loculated without significa nt change. Left basilar atelectasis. There may be a small right pleural effusion Cardiomegaly. Postsurgical changes involve the chest. Upper lobes clear
[2024-03-30 14:07] LABS: Absolute Lymphocytes (CBC) 0.5 K/uL (0.7-4.9); Absolute Neutrophil 9.6 K/uL (1.8-8.0); Basophils % 0.1 % (0-1.3); Eosinophils % 0.3 % (0-4.4); Hematocrit 27.4 % (39.6-49.0); Hemoglobin 7.8 g/dL (13.6-17.9); Lymphocytes % 4.2 % (15.3-44.8); MCH 22.4 pg (27.0-35.0); MCHC 28.5 g/dL (32.0-36.0); MCV 78.6 fL (80-100); MPV 7.4 fL (7.6-11.3); Monocytes % 9.2 % (3.3-12.3); Neutrophils % 86.2 % (41.7-73.7); Nucleated RBC Absolute Count 0.2 (0-0); Nucleated Red Blood Cells % 2.1 % (0-0); Platelets 183 thou/uL (152-406); RBC Red Blood Cell Count 3.48 M/uL (4.33-5.43); Red Cell Distribution Width 20.9 % (12.1-15.2)
[2024-03-30 14:26] LABS: ALT/SGPT 23 U/L (16-61); AST/SGOT < 10 U/L (15-37); Albumin 2.9 g/dL (3.4-5.0); Albumin/Globulin Ratio 0.8 (1.1-1.8); Alkaline Phosphatase 162 U/L (45-117); Anion Gap 12.2 mEq/L (5.0-15.0); BUN Blood Urea Nitrogen 144 mg/dL (7-18); Bicarbonate 24 mEq/L (21-32); Bilirubin Direct 0.3 mg/dL (0-0.2); Bilirubin Indirect, Calculated 0.3 mg/dL (0.2-0.8); Bilirubin Total 0.6 mg/dL (0.2-1.0); Globulin 3.7 g/dL (2.3-3.5); Glomerular Filtration Rate 19 ml/min (=/>90); Glucose Level 139 mg/dL (74-106); Magnesium 3.5 mg/dL (1.6-2.4); NT PRO-BNP 17342 pg/mL (<450); Potassium 5.2 mEq/L (3.5-5.1); Protein, Total 6.6 g/dL (6.4-8.2); Sodium Level 129 mEq/L (136-145); Troponin High Sensitivity 52.9 pg/mL (<58.9)
[2024-03-30 14:28] LABS: Differential Total Cells Count 100; Lymphocytes 3 % (15-42); Metamyelocytes 1 % (0-0); Monocytes 6 % (0-10); Nucleated Red Blood Cells 4 /100WBC; Platelet Estimate ADEQ; Segmented Neutrophils 90 % (40-80)
[2024-03-30 14:29] LABS: Anisocytosis 2+; Blood Morphology Comment NOTED (NOT SEEN); Hypochromasia 2+; Poikilocytosis 1+
--- NOTE | 2024-03-30 14:56 | ER ---
Nurse's Notes [facility] Name: Donell Valle Jr Age: 83 yrs Sex: Male : 1940 Arrival Date: 03/30/2024 Time: 12:26 Bed 8 Private MD: Diagnosis: Acute kidney failure, unspecified-ON CHRONIC;Edema, unspecified;Anemia in chronic kidney disease;Pleural effusion in other conditions classified elsewhere;Acidosis-metabolic Presentation: 03/30 12:41 Chief complaint: Patient states: SOB. B leg swelling with drainage for 4 days. No ll1 fever. Coronavirus screen: Client denies travel out of the [place] in the last 14 days. At this time, the client does not indicate any symptoms associated with coronavirus-19. Ebola Screen: Patient denies travel to an Ebola-affected area in the 21 days before illness onset. Initial Sepsis Screen: Does the patient meet any 2 criteria? No. Patient's initial sepsis screen is negative. Does the patient have a suspected source of infection? No. Patient's initial sepsis screen is negative. Risk Assessment: Do you want to hurt yourself or someone else? Patient reports no desire to harm self or others. Onset of symptoms was March 27, 2024. 12:41 Method Of Arrival: Wheelchair ll1 12:41 Acuity: ALTAF 3 ll1 Triage Assessment: 12:43 General: Appears uncomfortable, Behavior is calm, cooperative, appropriate for age. ll1 Pain: Denies pain. Respiratory: Reports shortness of breath Onset: The symptoms/episode began/occurred 4 days ago. Derm: Reports swelling, blisters, draining clear fluids for 4 days. 03/31 05:22 Respiratory: pc2 Historical: - Allergies: 03/30 12:42 Sulfa (Sulfonamide Antibiotics); ll1 - PMHx: 12:42 Atrial Fib; CVA; Hypertension; ll1 - Immunization history:: Adult Immunizations up to date. - Infectious Disease History:: Denies. - Social history:: Smoking status: Patient denies any tobacco usage or history of. - Family history:: not pertinent. Screenin:00 Abuse screen: Denies threats or abuse. Nutritional screening: No deficits noted. aa5 Tuberculosis screening: No symptoms or risk factors identified. 18:21 [facility] ED Fall Risk Assessment (Adult) History of falling in the last 3 months, ph including since admission No falls in past 3 months (0 pts) Confusion or Disorientation No (0 pts) Intoxicated or Sedated No (0 pts) Impaired Gait Yes (1 pt) Mobility Assist Device Used Yes (1 pt) Altered Elimination Yes (1 pt) Score/Fall Risk Level 3 or more points = High Risk Oriented to surroundings, Maintained a safe environment, Hourly rounding (assess needs \T\ fall precautionary measures) done. Assessment: 13:00 General: Appears comfortable, Behavior is calm, cooperative. Pain: Denies pain. Neuro: aa5 Level of Consciousness is awake, alert, obeys commands, Oriented to person, place, time, situation. Cardiovascular: Heart tones S1 S2 present Rhythm is irregular. Respiratory: Reports shortness of breath at rest Airway is patent Respiratory effort is even, unlabored, Respiratory pattern is regular, symmetrical, Breath sounds are clear bilaterally. GI: Abdomen is round non-distended, Bowel sounds present X 4 quads. Abd is soft and non tender X 4 quads. : No signs and/or symptoms were reported regarding the genitourinary system. EENT: No signs and/or symptoms were reported regarding the EENT system. Derm: Skin is dry, Skin is pale, Skin temperature is cool. Musculoskeletal: Swelling present in right leg and left leg Multiple blisters noted to thad lower legs and feet, weeping noted to thad legs. Thad lower legs appear discolored, bluish in color. 13:40 Neuro: Level of Consciousness is awake, alert, obeys commands, Oriented to person, aa5 place, time, situation. Respiratory: Airway is patent Respiratory effort is even, unlabored, Respiratory pattern is regular, symmetrical. Derm: Skin is dry, Skin is pale, Skin temperature is cool. 13:40 Reassessment: Extra warm blankets given to pt for comfort. . aa5 15:45 Reassessment: UTILIZATION REVIEW COORDINATOR at bedside (hospitalist). aa5 15:45 Neuro: Level of Consciousness is awake, alert, obeys commands, Oriented to person, aa5 place, time, situation. Respiratory: Airway is patent Respiratory effort is even, unlabored, Respiratory pattern is regular, symmetrical. Derm: Skin is dry, Skin is pale, Skin temperature is cool. 16:30 Reassessment: Pt sitting up at side of bed, extra warm blankets provided for comfort. aa5 States no complaints at this time, call hernadez within reach. . 19:39 General: Appears in no apparent distress. comfortable, Behavior is calm, cooperative. pc2 Neuro: Level of Consciousness is awake, alert, Oriented to person, place, time, situation. Cardiovascular: Heart tones S1 S2 Patient's skin is warm and dry. Respiratory: Airway is patent Respiratory effort is even, unlabored, Respiratory pattern is regular, symmetrical. GI: Abdomen is non-distended. : No signs and/or symptoms were reported regarding the genitourinary system. EENT: No signs and/or symptoms were reported regarding the EENT system. Derm: Skin is dry, Skin is pink, warm \T\ dry. Skin temperature is warm. 20:50 Reassessment: Patient and/or family updated on plan of care and expected duration. Pain ha1 level reassessed. 21:55 Reassessment: Patient and/or family updated on plan of care and expected duration. Pain ha1 level reassessed. 21:55 Respiratory: Airway is patent Respiratory effort is even, unlabored, Respiratory ha1 pattern is regular, symmetrical. 03/31 00:20 Reassessment: Patient and/or family updated on plan of care and expected duration. Pain ha1 level reassessed. Neuro: Level of Consciousness is awake, alert, obeys commands, Oriented to person, place, time, situation. 01:25 Reassessment: Patient appears in no apparent distress at this time. Patient is alert, pc2 oriented x 3, equal unlabored respirations, skin warm/dry/pink. 03:04 Reassessment: Patient and/or family updated on plan of care and expected duration. Pain pc2 level reassessed. Patient is alert, oriented x 3, equal unlabored respirations, skin warm/dry/pink. 04:10 Reassessment: Patient appears in no apparent distress at this time. pc2 05:00 Reassessment: Patient and/or family updated on plan of care and expected duration. Pain pc2 level reassessed. Vital Signs: 03/30 12:41 BP 111 / 67; Pulse 70; Resp 22; Temp 98; Pulse Ox 99% on R/A; Weight 85.73 kg; Height 6 ll1 ft. 1 in. ; Pain 0/10; 13:40 BP 108 / 66; Pulse 79; Resp 16 S; Pulse Ox 99% on R/A; aa5 15:43 BP 111 / 65; Pulse 80; Resp 16 S; Pulse Ox 87% on R/A; aa5 15:45 Pulse Ox 96% on 2 lpm NC; aa5 17:00 BP 114 / 64; Pulse 81; Resp 20; Pulse Ox 100% on 2 lpm NC; ph 18:22 BP 115 / 74; Pulse 74; Resp 18; Pulse Ox 98% on 2 lpm NC; ph 19:05 BP 111 / 65; Pulse 76; Resp 18; Pulse Ox 100% ; pc2 20:53 BP 113 / 71; Pulse 86; Resp 16; Pulse Ox 100% on 2 lpm NC; pc2 21:45 BP 110 / 62; Pulse 79; Resp 16; Pulse Ox 99% on NC; pc2 07 00:00 BP 111 / 70; Pulse 80; Resp 16; Pulse Ox 99% on NC; pc2 01:30 BP 119 / 73; Pulse 79; Resp 18; Pulse Ox 98% on NC; pc2 03:45 BP 113 / 72; Pulse 77; Resp 16; Pulse Ox 97% on NC; pc2 05:00 BP 107 / 66; Pulse 86; Resp 17; Pulse Ox 100% on NC; pc2 05:22 BP 109 / 68; Pulse 86; Resp 16; Pulse Ox 99% on NC; pc2 03/30 12:41 Body Mass Index 24.94 (85.73 kg, 185.42 cm) ll1 07 12:41 Pain Scale: Adult ll1 ED Course: 03/30 12:30 Patient arrived in ED. im 12:42 Triage completed. ll1 12:43 Arm band placed on Patient placed in an exam room, on a stretcher. ll1 12:44 Abiel Ruby MD is Attending Physician. rt 13:00 Patient has correct armband on for positive identification. Placed in gown. Bed in low aa5 position. Call light in reach. Side rails up X 1. Adult w/ patient. Client placed on continuous cardiac and pulse oximetry monitoring. NIBP monitoring applied. monitor technician on. Pulse ox on. NIBP on. 13:07 Jolene Celeste, RN is Primary Nurse. aa5 13:21 Inserted saline lock: 20 gauge in right forearm, using aseptic technique. aa5 13:21 Initial lab(s) drawn, by me, sent to lab. First set of blood cultures drawn by me. aa5 13:24 EKG done, by ED staff, reviewed by Abiel Ruby MD. ph 13:30 XRAY Chest (1 view) In Process Unspecified. EDMS 13:36 Second set of blood cultures drawn by me. aa5 14:55 Maxi Castañeda MD is Hospitalizing Provider. rt 18:21 Renal Ultrasound-Complete In Process Unspecified. EDMS 18:21 Urinary Bladder In Process Unspecified. EDMS 18:21 No provider procedures requiring assistance completed. Patient admitted, IV remains in ph place. 21:17 Initiated transfer with Rufina Newman at [facility], Rufina states she is unsure if [facility] there is a bed available and unsure if [facility] will accept pt for CRRT, requesting for our on-call milk tanker driver to contact [facility] milk tanker driver to consult. Gave Dr. Dasilva's number to Transfer Center. 22:32 Attending Physician role handed off by Abiel Ruby MD paula 22:32 Fernandez Waldron MD is Attending Physician. paula 22:42 Shreya Dasilva MD is Hospitalizing Provider. paula 23:[address] Soares with Dr. Waldron after consult with Dr. Dasilva. rv1 23:47 Awaiting results of BMP and repeat Lactate before receiving acceptance from [address] 03/31 02:52 Up cath inserted, using sterile technique, 16 Fr., by copper plater, balloon inflated, pc2 urine specimen collected. 03:[address] Soares to [facility] CCU [address] [place] [address] 2 Bed 15. rv1 05:15 Provided Education on: need for transfer. pc2 Administered Medications: 03/30 13:40 Drug: Furosemide IVP 40 mg IVP once; give over 2 minutes Route: IVP; Site: right aa5 forearm; 18:23 Follow up: Response: No adverse reaction ph 03/31 02:24 Drug: Bumetanide IVP 1 mg IVP once Route: IVP; Site: right antecubital; jb4 05:28 Follow up: Response: No adverse reaction pc2 02:24 Drug: Pantoprazole IVP 40 mg IVP once Route: IVP; Site: right antecubital; jb4 05:28 Follow up: Response: No adverse reaction pc2 02:24 Drug: NS 0.9% IV 500 ml IV at bolus once Route: IV; Rate: bolus; Site: right jb4 antecubital; 05:27 Follow up: Response: No adverse reaction; IV Status: Completed infusion; IV Intake: pc2 500ml 02:40 Drug: Kayexalate PO 30 grams PO once Route: PO; jb4 05:27 Follow up: Response: No adverse reaction pc2 03:40 Drug: Sodium Bicarbonate IVP 1 amp IVP once; (50 mL); equals 50 mEq Route: IVP; Site: ha1 right forearm; 05:27 Follow up: Response: No adverse reaction pc2 03:50 Drug: Sodium Bicarbonate IVP 1 amp IVP once; (50 mL); equals 50 mEq Route: IVP; Site: ha1 right forearm; 05:27 Follow up: Response: No adverse reaction pc2 04:00 Drug: D5W IV 1000 ml, Sodium Bicarbonate IVP 150 mEq IV at 100 ml/hr continuous Route: ha1 IV; Rate: 100 ml/hr; Site: right forearm; 05:27 Follow up: Response: No adverse reaction pc2 Medication: 03/30 18:21 VIS not applicable for this client. ph Intake: 03/31 05:27 IV: 500ml; Total: 500ml. pc2 Output: 03:06 Urine: 600ml; Total: 600ml. pc2 05:17 Urine: 650ml; Total: 1250ml. pc2 Outcome: 03/30 14:56 Decision to Hospitalize by Provider. rt 22:00 ER care complete, transfer ordered by . rt 22:43 Decision to Hospitalize by Provider. [facility] 03/31 00:48 ER care complete, transfer ordered by . [facility] 05:25 Transferred to [facility], Transfer form completed. pc2 05:25 Condition: stable 05:25 Instructed on the need for transfer, Demonstrated understanding of instructions, 05:29 Patient left the ED. pc2 Signatures: Dispatcher [employer] Fernandez Will MD MD cha Calderon, Audri, RN RN [email or web address] Yasmin Cotton RN RN Mario Benavides RN RN [id number] Andrea Godoy RN RN 1 Rosa Fuentes RN RN ha1 Abiel Ruby MD MD rt Chula Garcia rv1 Candice De La Rosa Maty, RN RN pc2 Corrections: (The following items were deleted from the chart) 03/30 15:49 13:00 Musculoskeletal: Swelling present in right leg and left leg aa5 aa5 20:55 20:[address] via stretcher pc2 pc2
--- NOTE | 2024-03-30 14:57 | EDPHYS ---
Physician Documentation [facility] Name: Donell Valle Jr Age: 83 yrs Sex: Male : 1940 Arrival Date: 03/30/2024 Time: 12:26 Bed 8 Private MD: ED Physician Fernandez Waldron HPI: 03/30 15:16 This 83 yrs old Male presents to ER via Wheelchair with complaints of Shortness Of rt Breath, Leg Swelling. 15:16 Patient was sent from primary care's office for shortness of breath, bilateral leg rt swelling with weeping. Is been present for several days. Patient started on antibiotics for presumed cellulitis. Denies other acute complaints at this time, symptoms are moderate in severity, no other aggravating or alleviating factors.. Historical: - Allergies: 12:42 Sulfa (Sulfonamide Antibiotics); ll1 - PMHx: 12:42 Atrial Fib; CVA; Hypertension; ll1 - Immunization history:: Adult Immunizations up to date. - Infectious Disease History:: Denies. - Social history:: Smoking status: Patient denies any tobacco usage or history of. - Family history:: not pertinent. ROS: 15:16 Constitutional: Negative for fever, chills, and weight loss, Abdomen/GI: Negative for rt abdominal pain, nausea, vomiting, diarrhea, and constipation, Neuro: Negative for headache, weakness, numbness, tingling, and seizure, 15:16 Cardiovascular: Positive for edema, Negative for chest pain, 15:16 Respiratory: Positive for cough, shortness of breath, 15:16 MS/extremity: Positive for swelling, Negative for injury or acute deformity, Exam: 15:16 Constitutional: This is a well developed, well nourished patient who is awake, alert, rt and in no acute distress. Head/Face: Normocephalic, atraumatic. Chest/axilla: Normal chest wall appearance and motion. Nontender with no deformity. No lesions are appreciated. Cardiovascular: Regular rate and rhythm with a normal S1 and S2. No gallops, murmurs, or rubs. Normal PMI, no JVD. No pulse deficits. Abdomen/GI: Soft, non-tender, with normal bowel sounds. No distension or tympany. No guarding or rebound. No evidence of tenderness throughout. Skin: Warm, dry with normal turgor. Normal color with no rashes, no lesions, and no evidence of cellulitis. Neuro: Awake and alert, GCS 15, oriented to person, place, time, and situation. Cranial nerves II-XII grossly intact. Motor strength 5/5 in all extremities. Sensory grossly intact. Cerebellar exam normal. Normal gait. 15:16 Respiratory: Bibasilar crackles, 15:16 Musculoskeletal/extremity: 4+ bilateral lower extremity edema with weeping. 15:16 ECG was reviewed by the Attending Physician. rt Vital Signs: 12:41 BP 111 / 67; Pulse 70; Resp 22; Temp 98; Pulse Ox 99% on R/A; Weight 85.73 kg; Height 6 ll1 ft. 1 in. ; Pain 0/10; 13:40 BP 108 / 66; Pulse 79; Resp 16 S; Pulse Ox 99% on R/A; aa5 15:43 BP 111 / 65; Pulse 80; Resp 16 S; Pulse Ox 87% on R/A; aa5 15:45 Pulse Ox 96% on 2 lpm NC; aa5 17:00 BP 114 / 64; Pulse 81; Resp 20; Pulse Ox 100% on 2 lpm NC; ph 18:22 BP 115 / 74; Pulse 74; Resp 18; Pulse Ox 98% on 2 lpm NC; ph 19:05 BP 111 / 65; Pulse 76; Resp 18; Pulse Ox 100% ; pc2 20:53 BP 113 / 71; Pulse 86; Resp 16; Pulse Ox 100% on 2 lpm NC; pc2 21:45 BP 110 / 62; Pulse 79; Resp 16; Pulse Ox 99% on NC; pc2 07 00:00 BP 111 / 70; Pulse 80; Resp 16; Pulse Ox 99% on NC; pc2 01:30 BP 119 / 73; Pulse 79; Resp 18; Pulse Ox 98% on NC; pc2 03:45 BP 113 / 72; Pulse 77; Resp 16; Pulse Ox 97% on NC; pc2 05:00 BP 107 / 66; Pulse 86; Resp 17; Pulse Ox 100% on NC; pc2 05:22 BP 109 / 68; Pulse 86; Resp 16; Pulse Ox 99% on NC; pc2 03/30 12:41 Body Mass Index 24.94 (85.73 kg, 185.42 cm) ll1 03/30 12:41 Pain Scale: Adult ll1 MDM: 03/30 12:47 Patient medically screened. rt 15:16 Differential diagnosis: CHF, cellulitis, anemia, dysrhythmia, pneumonia. Data reviewed: rt vital signs, nurses notes, lab test result(s), EKG, radiologic studies. Consideration of Admission/Observation Patient was admitted/placed on observation. Management of patient was discussed with the following: Hospitalist: Agrees to admit. Independent interpretation of the following test(s) in the Emergency Department X-Ray: My interpretation is No pneumonia seen on interpretation of x-ray images. Care significantly affected by the following chronic conditions: CHF. Counseling: I had a detailed discussion with the patient and/or guardian regarding the historical points, exam findings, and any diagnostic results supporting the discharge/admit diagnosis, lab results, radiology results, the need for further work-up and treatment in the hospital. Response to treatment: the patient's symptoms have mildly improved after treatment. 03/30 12:57 Order name: Basic Metabolic Panel; Complete Time: 14:27 rt 03/30 12:57 Order name: CBC with Diff; Complete Time: 14:39 rt 03/30 12:57 Order name: LFT's; Complete Time: 14:27 rt 03/30 12:57 Order name: Magnesium; Complete Time: 14:27 rt 03/30 12:57 Order name: NT PRO-BNP; Complete Time: 14:27 rt 03/30 12:57 Order name: Troponin HS; Complete Time: 14:27 rt 03/30 12:57 Order name: Blood Culture Adult (2) rt 03/30 12:57 Order name: Lactate w/ 2H reflex if indic.; Complete Time: 13:54 rt 03/30 12:57 Order name: Protime (+inr); Complete Time: 13:54 rt 03/30 12:57 Order name: Ptt, Activated; Complete Time: 13:54 rt 03/30 14:27 Order name: Manual Differential; Complete Time: 14:39 EDMS 03/30 15:50 Order name: Ghost Lactate-NO COLLECT Timer; Complete Time: 15:56 EDMS 03/30 16:45 Order name: Lactate Sepsis 2 HR Follow-up; Complete Time: 16:58 EDMS 03/30 18:31 Order name: ABG rt 03/30 19:00 Order name: ABG Arterial Blood Gas; Complete Time: 19:19 EDMS 03/30 22:41 Order name: Type And Screen [facility] 03/31 02:59 Order name: CMP rv1 03/31 02:59 Order name: Lactate w/ 2H reflex if indic. rv1 03/31 03:02 Order name: Lactate w/ 2H reflex if indic.; Complete Time: 03:10 EDMS 03/31 03:56 Order name: Comprehensive Metabolic Panel EDMS 03/31 05:20 Order name: ABG Arterial Blood Gas EDMS 03/30 12:57 Order name: XRAY Chest (1 view); Complete Time: 13:54 rt 03/30 17:32 Order name: Renal Ultrasound-Complete; Complete Time: 19:19 EDMS 03/30 18:05 Order name: Urinary Bladder; Complete Time: 19:19 EDMS 03/31 01:18 Order name: BIPAP [facility] 03/30 12:57 Order name: EKG; Complete Time: 12:58 rt 03/30 12:57 Order name: Cardiac monitoring; Complete Time: 13:23 rt 03/30 12:57 Order name: EKG - Nurse/Tech; Complete Time: 13:23 rt 03/30 12:57 Order name: IV Saline Lock; Complete Time: 13:23 rt 03/30 12:57 Order name: Labs collected and sent; Complete Time: 13:23 rt 03/30 12:57 Order name: O2 Per Protocol; Complete Time: 13:24 rt 03/30 12:57 Order name: O2 Sat Monitoring; Complete Time: 13:24 rt 03/30 12:57 Order name: IV Saline Lock - Large Bore; Complete Time: 13:23 rt 03/30 12:57 Order name: Vital Signs; Complete Time: 13:23 rt 03/30 22:41 Order name: Up; Complete Time: 03:03 [facility] EC:16 Rate is 74 beats/min. Rhythm is irregularly irregular, A fib with No ectopy, rt Nonspecific intraventricular block. QRS [place] is Normal. QT interval is normal. No Q waves. Administered Medications: 13:40 Drug: Furosemide IVP 40 mg IVP once; give over 2 minutes Route: IVP; Site: right aa5 forearm; 18:23 Follow up: Response: No adverse reaction 03/31 02:24 Drug: Bumetanide IVP 1 mg IVP once Route: IVP; Site: right antecubital; jb4 05:28 Follow up: Response: No adverse reaction pc2 02:24 Drug: Pantoprazole IVP 40 mg IVP once Route: IVP; Site: right antecubital; jb4 05:28 Follow up: Response: No adverse reaction pc2 02:24 Drug: NS 0.9% IV 500 ml IV at bolus once Route: IV; Rate: bolus; Site: right jb4 antecubital; 05:27 Follow up: Response: No adverse reaction; IV Status: Completed infusion; IV Intake: pc2 500ml 02:40 Drug: Kayexalate PO 30 grams PO once Route: PO; jb4 05:27 Follow up: Response: No adverse reaction pc2 03:40 Drug: Sodium Bicarbonate IVP 1 amp IVP once; (50 mL); equals 50 mEq Route: IVP; Site: ha1 right forearm; 05:27 Follow up: Response: No adverse reaction pc2 03:50 Drug: Sodium Bicarbonate IVP 1 amp IVP once; (50 mL); equals 50 mEq Route: IVP; Site: ha1 right forearm; 05:27 Follow up: Response: No adverse reaction pc2 04:00 Drug: D5W IV 1000 ml, Sodium Bicarbonate IVP 150 mEq IV at 100 ml/hr continuous Route: ha1 IV; Rate: 100 ml/hr; Site: right forearm; 05:27 Follow up: Response: No adverse reaction pc2 Disposition: 03:16 Critical Care:. paula Disposition Summary: 03/31/24 00:48 Transfer Ordered Notes: Transfer Location: [facility](03/31/24 00:48) paula Reason: Higher level of care(03/31/24 00:48) paula Condition: Serious(03/31/24 00:48) paula Problem: new(03/31/24 00:48) paula Symptoms: have improved(03/31/24 00:48) paula Accepting Physician: TO ICU [facility](03/31/24 05:29) pc2 Diagnosis - Acute kidney failure, unspecified - ON CHRONIC(03/31/24 00:48) paula - Edema, unspecified(03/31/24 00:48) paula - Anemia in chronic kidney disease(03/31/24 00:48) paula - Pleural effusion in other conditions classified elsewhere paula - Acidosis - metabolic apula Forms: - Medication Reconciliation Form paula - SBAR form paula Critical care time excluding procedures: 03:16 Critical care time: Bedside Care: 30 minutes, Consultation: 20 minutes, Family paula Intervention: 10 minutes. Total time: 60 minutes Signatures: Dispatcher [employer] Fernandez Will MD MD cha Calderon, Audri, RN RN aa5 Mario Kimbrough, RN RN jb4 Andrea Godoy, RN RN ll1 Lela De Los Santos RN RN vc1 Rosa Fuentes RN RN ha1 Abiel Ruby MD MD rt Maty Baez, RN RN pc2 Yasmin Cotton RN ph Corrections: (The following items were deleted from the chart) 03/30 13:48 12:57 Accucheck ordered. rt aa5 14:27 14:10 CBC Smear Scan ordered. EDWV EDMS 17:37 17:18 CONS Physician Consult ordered. EDMS EDMS 17:37 17:18 Basic Metabolic Panel ordered. EDMS EDMS 17:37 17:18 Basic Metabolic Panel ordered. EDMS EDMS 17:37 17:18 Basic Metabolic Panel ordered. EDMS EDMS 17:37 17:18 Basic Metabolic Panel ordered. EDMS EDMS 17:37 17:18 Basic Metabolic Panel ordered. EDMS EDMS 17:37 17:18 Basic Metabolic Panel ordered. EDMS EDMS 17:37 17:18 CBC with Automated Diff ordered. EDMS EDMS 17:37 17:18 CBC with Automated Diff ordered. EDMS EDMS 17:37 17:18 CBC with Automated Diff ordered. EDMS EDMS 17:37 17:18 CBC with Automated Diff ordered. EDMS EDMS 17:37 17:18 CBC with Automated Diff ordered. EDMS EDMS 17:37 17:18 CBC with Automated Diff ordered. EDMS EDMS 17:37 17:18 Magnesium ordered. EDMS EDMS 17:37 17:18 Magnesium ordered. EDMS EDMS 17:37 17:18 Magnesium ordered. EDMS EDMS 17:37 17:18 Magnesium ordered. EDMS EDMS 17:37 17:18 Magnesium ordered. EDMS EDMS 17:37 17:18 Magnesium ordered. EDMS EDMS 17:37 17:18 Phosphorus ordered. EDMS EDMS 17:37 17:18 Phosphorus ordered. EDMS EDMS 17:37 17:18 Phosphorus ordered. EDMS EDMS 17:37 17:18 Phosphorus ordered. EDMS EDMS 17:37 17:18 Phosphorus ordered. EDMS EDMS 17:37 17:18 Phosphorus ordered. EDMS EDMS 21:16 14:56 Inpatient Admission rt vc1 21:16 14:56 Maxi Castañeda rt vc1 21:16 14:56 Telemetry/MedSurg (Inpatient) rt vc1 21:16 14:56 Fair rt vc1 21:16 14:56 an acute exacerbation rt vc1 21:16 14:56 are unchanged rt vc1 21:16 14:56 Standard rt vc1 21:16 14:56 rt vc1 21:16 14:56 CHF exacerbation rt vc1 21:16 14:56 Acute kidney injury rt vc1 22:42 22:00 rt paula 22:42 22:00 [facility] rt paula 22:42 22:00 Higher level of care rt paula 22:42 22:00 Fair rt paula 22:42 22:00 new rt paula 22:42 22:00 are unchanged rt paula 22:42 22:00 Acute renal failure rt paula 22:42 22:00 CHF exacerbation rt paula 03/31 00:32 00:32 COMPREHENSIVE METABOLIC PANEL+C.LAB.BRZ ordered. EDMS EDMS 00:47 05 22:43 Inpatient Admission paula paula 03/31 00:47 03/30 22:43 OkundayeZacariasma paula paula 03/31 00:47 03/30 22:43 Telemetry/MedSurg (Inpatient) paula paula 03/31 00:47 03/30 22:43 Fair paula paula 03/31 00:47 03/30 22:43 chronic paula paula 03/31 00:47 03/30 22:43 have worsened paula paula 03/31 00:47 03/30 22:43 Standard paula paula 03/31 00:47 03/30 22:43 paula paula 03/31 00:47 03/30 22:43 Acute kidney failure, unspecified - on chronic paula paula 03/31 00:47 03/30 22:43 Anemia in chronic kidney disease paula paula 03/31 00:47 05 22:43 Edema, unspecified paula paula 03/31 00:49 00:48 TO ICU [facility] paula paula 01:00 01:00 Arterial Blood Gas+RC.LAB.BRZ ordered. EDMS EDMS 01:02 01:02 LACTATE+C.LAB.BRZ ordered. EDMS EDMS 03:14 00:49 TO ICU [facility] paula paula 05:29 03:14 TO ICU [facility] pc2
--- NOTE | 2024-03-30 15:27 | P.HP ---
Certification for Inpatient Patient admitted to: Inpatient With expected LOS: >2 Midnights Patient will require the following post-hospital care: None Practitioner: I am a practitioner with admitting privileges, knowledge of patient current condition, hospital course, and medical plan of care. Services: Services provided to patient in accordance with Admission requirements found in Title 42 Section 412.3 of the Code of Federal Regulations Patient History Date of Service: 03/30/24 Reason for admission: CHF exacerbation History of Present Illness: Donell Valle is an 83 year old male with Pmhx TAVR, pulmonary HTN, CVA, HTN, COPD, Asbestosis,CAD (CABG x2), CHF, CKD3, and Afib (prior cardioversion) who presents to the ED with chief complaint of shortness of breath. Initial vitals BP 111 / 67; Pulse 70; Resp 22; Temp 98; Pulse Ox 99% on R/A Chest xray reports "Small to moderate left pleural effusion which may be partially loculated without significant change. Left basilar atelectasis. There may be a small right pleural effusion Cardiomegaly. Postsurgical changes involve the chest. Upper lobes clear." Laboratory evaluation WBC 11.2, H/H 7.8/27.4, BNP 05504, BUN/creatinine 144/3.21, GFR 19, lactic acid 2.4/1.6, magnesium 3.5, potassium 5.2 Allergies Sulfa (Sulfonamide Antibiotics) Allergy (Verified 02/10/21 12:32) Itching/Hives/Rash Home Medications: Fluticasone/Vilanterol [Breo Ellipta 100-25 Mcg Inhalr] 1 puff IH DAILY 07/27/20 Aspirin [Aspirin EC 81 MG] 81 mg PO DAILY #30 tablet. 07/29/20 Atorvastatin Calcium [Lipitor] 40 mg PO BEDTIME #30 tab 07/29/20 Nifedipine Xl [Procardia XL*] 60 mg PO DAILY #30 tab 07/29/20 Digoxin 125 mcg PO BEDTIME 11/28/20 Spironolactone [Aldactone*] 25 mg PO DAILY 11/28/20 Furosemide [Lasix] 80 mg PO DAILY 02/03/21 tadalafiL [Tadalafil] 20 mg PO DAILY 02/03/21 - Past Medical/Surgical History Diabetic: No -: Hypertension -: COPD -: Atrial fibrillation with prior cardioversion -: Former tobacco use -: Asbestosis -: Hyperlipidemia -: History of CVA -: CAD with prior CABG x2 -: Chronic diastolic congestive heart failure -: CKD 3 -: kidney surgery (stones and partial R kidney removal) -: back surgery -: knee surgery -: TURP -: CABG 2 vessel Psychosocial/ Personal History: Patient , lives with his and is retired - Family History Father -: Lung disease Mother -: Heart disease, Cancer Notes: Colon Cancer-mother. heart disease-mother - Social History Smoking Status: Former smoker Alcohol use: No CD- Drugs: No Caffeine use: Yes Physical Examination - Studies Laboratory Data (last 24 hrs) 03/30/24 03/30/24 03/30/24 13:21 13:21 13:21 WBC 11.20 H Hgb 7.8 L Hct 27.4 L Plt Count 183 PT 13.6 H INR 1.24 APTT 28.8 Sodium 129 L Potassium 5.2 H BUN 144 H Creatinine 3.21 H Glucose 139 H Magnesium 3.5 H Total Bilirubin 0.6 AST < 10 L ALT 23 Alkaline Phosphatase 162 H Assessment and Plan - Plan Assessment and Plan Acute hypoxic respiratory failure 2/2 CHF Fluid volume overload pulmonary HTN CAD s/p CABG x 2 TAVR DVT ppx Full code LOS 2-3 days - Advance Directives Does patient have a Living Will: No Does patient have a Durable POA for Healthcare: No
[2024-03-30] MEDS ORDERED: ACETAMINOPHEN 500 MG TAB PO PRN (17:09)
[2024-03-30 18:59] LABS: Arterial Blood Carboxyhemoglob 1.2 % (0-1.5); Blood Gas Oxyhemoglobin 21.9 % (94-97); Blood Gas THB 8.3 g/dl (12-18); Blood O2 Saturation 22.6 % (92-98.5)
--- NOTE | 2024-03-30 19:13 | RAD REPORT ---
EXAM DESCRIPTION: US - Renal Ultrasound-Complete - 03/30/2024 6:20 pm CLINICAL HISTORY: Abdominal pain COMPARISON: 2022 FINDINGS: The right kidney measures 11 cm with a normal echotexture. The left kidney measures 10 cm with a normal echotexture. Limited evaluation of left kidney. Small bilateral renal calculi suspected Hydronephrosis is not seen. Small amount of ascites IMPRESSION: Nonobstructing renal calculi
--- NOTE | 2024-03-30 19:17 | RAD REPORT ---
EXAM DESCRIPTION: US - Urinary Bladder - 03/30/2024 6:20 pm CLINICAL HISTORY: Urinary retention FINDINGS: Bladder volume 270 cc. Prostate gland mildly enlarged. Bladder wall does not appear significantly thickened. IMPRESSION: Bladder volume 270 cc
--- NOTE | 2024-03-30 20:26 | P.PN ---
Date of Service: 03/30/24 Brief note- please see PATHOLOGY LABORATORY TECHNOLOGIST's consult note for further details. Patient seen and examined after request for admission. Patient with TAVR at [facility] in 10/2023. Since then, ongoing anemia, requiring multiple blood transfusions. s/p scopes by GI in 10/2023 with no clear source of bleed presents to ED today with progressively worsening b/l lower extremity edema and fatigue despite taking his home medications / bumex/ amari, etc. Reports decreased urine output over the last week, dyspnea on exertion, and leg edema - now weeping He was in this ER ~1 month ago for hgb: 6.6 and received 2u PRBC and dc'd home. Returns today with similar hg 7.8. reports black stool with last BM a few days ago. Denies fever. appears fatigued, mild labored respirations at rest, with pitting edema to knees and weeping bilaterally. Discussed with patient we do not have GI coverage currently and unknown when. Discussed will need to discuss with nephrology prior to admission here given his history and blood work. Dr. Larson was contacted and discussed case. Given his low / borderline BP (100- 115/60s), history / BUN: 144, Cr: 3.2, hyperkalemia, and acidosis, recommends CRRT, which cannot be done here, so recommending transfer to tertiary care center. Discussed with ER physician, who stated will initiate transfer.
[2024-03-30] MEDS ORDERED: BUMETANIDE 1 MG/4 ML VIAL IV SCH (21:00)
[2024-03-31] MEDS ORDERED: SOD POLYSTYREN SUL 15 GM/60 ML UCUP ONE (02:12)
[2024-03-31] MEDS ORDERED: PANTOPRAZOLE 40 MG INJ ONE (02:12)
[2024-03-31] MEDS ORDERED: NA CHLORIDE 0.9% 500 ML ONE (02:12)
[2024-03-31] MEDS ORDERED: LIDOCAINE VISCOUS 2% 10ML ORAL SOLN ONE (02:38)
[2024-03-31] MEDS ORDERED: D5W 1,000 ML IV ONE (03:17)
[2024-03-31] MEDS ORDERED: SODIUM BICARB 50 MEQ/50ML VIAL ONE (03:26)
[2024-03-31 03:33] LABS: ALT/SGPT 20 U/L (16-61); Albumin 2.9 g/dL (3.4-5.0); Albumin/Globulin Ratio 0.9 (1.1-1.8); Alkaline Phosphatase 152 U/L (45-117); Anion Gap 11.1 mEq/L (5.0-15.0); BUN Blood Urea Nitrogen 130 mg/dL (7-18); Bicarbonate 24 mEq/L (21-32); Bilirubin Total 0.7 mg/dL (0.2-1.0); Globulin 3.2 g/dL (2.3-3.5); Glomerular Filtration Rate 20 ml/min (=/>90); Glucose Level 111 mg/dL (74-106); Potassium 5.1 mEq/L (3.5-5.1); Protein, Total 6.1 g/dL (6.4-8.2); Sodium Level 130 mEq/L (136-145)
[2024-03-31 03:55] LABS: AST/SGOT < 10 U/L (15-37)
[2024-03-31 05:19] LABS: Blood O2 Saturation 98.3 % (92-98.5)
[2024-03-31 05:20] LABS: Blood Gas Oxyhemoglobin 94.7 % (94-97); Blood Gas THB 8.3 g/dl (12-18)
[2024-03-31 05:34] VITALS: TEMP 98; O2SAT 99
[2024-03-31 05:49] VITALS: BP 109/68
--- NOTE | 2024-03-31 06:09 | P.CNS ---
Date of Consult: 03/30/24 Chief Complaint: hypotension, fluid volume overload History of Present Illness: Donell Valle is an 83 year old male with Pmhx s/p TAVR, mod-severe pulmonary hypertension, mod-severe mitral regurgitation, chronic diastolic congestive heart failure, CVA, hypertension, Hyperlipidemia, COPD, asbestosis, CAD (s/p CABG x 2), CHF, CKD 3, and atrial fibrillation (status post failed cardioversion), tobacco use who presents to the ED with chief complaint of hypotension and fluid volume overload sent from his doctors office. He is alert, oriented, and a good historian. He has a complicated medical history from October 2023. He presented to the ED with difficulty breathing and was found to be anemic requiring transfer to [facility] for GI services. While at [facility] an ECHO was performed showing mod-severe Pulm HTN with mod-severe MR and performed a TAVR hoping to also improve the MR. [facility] attempted to cardiovert him with no success. He was started on Plavix before discharge. Since the TAVR procedure he has remained anemic, requiring blood transfusions. On 03/30/24, Donell presented to the ED from his doctors office for hypotension, decreased oxygen saturation, and weakness. Upon evaluation in the ED he was found to be in severe kidney failure with BUN/creatinine 144/3.21, GFR 19, potassium 5.2, magnesium 3.5, sodium 129, lactic acid 2.4/1.6. Dr. Larson and Dr. Warner were contacted for further discussion. Per Dr. Larson, Donell is uremic with hypotension needing CRRT which we do not have available at our facility. Transfer was recommended to the ED and initiated promptly. Allergies Sulfa (Sulfonamide Antibiotics) Allergy (Verified 02/10/21 12:32) Itching/Hives/Rash Home Medications: Fluticasone/Vilanterol [Breo Ellipta 100-25 Mcg Inhalr] 1 puff IH DAILY 07/27/20 Aspirin [Aspirin EC 81 MG] 81 mg PO DAILY #30 tablet. 07/29/20 Atorvastatin Calcium [Lipitor] 40 mg PO BEDTIME #30 tab 07/29/20 Nifedipine Xl [Procardia XL*] 60 mg PO DAILY #30 tab 07/29/20 Digoxin 125 mcg PO BEDTIME 11/28/20 Spironolactone [Aldactone*] 25 mg PO DAILY 11/28/20 Furosemide [Lasix] 80 mg PO DAILY 02/03/21 tadalafiL [Tadalafil] 20 mg PO DAILY 02/03/21 - Past Medical/Surgical History Diabetic: No -: Hypertension -: COPD -: Atrial fibrillation with prior cardioversion -: Former tobacco use -: Asbestosis -: Hyperlipidemia -: History of CVA -: CAD with prior CABG x2 -: Chronic diastolic congestive heart failure -: CKD 3 -: kidney surgery (stones and partial R kidney removal) -: back surgery -: knee surgery -: TURP -: CABG 2 vessel Psychosocial/ Personal History: Patient , lives with his and is retired - Family History Father Medical History: Lung disease Mother Medical History: Heart disease, Cancer Notes: Colon Cancer-mother. heart disease-mother - Social History Smoking Status: Former smoker Alcohol use: No CD- Drugs: No Caffeine use: Yes Review of Systems General: Weakness Respiratory: Shortness of Breath Gastrointestinal: Other (decrease UOP) Genitourinary: Other (black stool) Musculoskeletal: Other (thad lower extremity tense weeping edema) Physical Examination Temp Pulse Resp BP Pulse Ox 98 F 86 16 109/68 99 03/30/24 12:41 03/31/24 05:22 03/31/24 05:22 03/31/24 05:22 03/31/24 01:28 General: Alert, In no apparent distress, Oriented x3 HEENT: Atraumatic, Normocephalic, PERRLA Neck: Supple, 2+ carotid pulse no bruit, JVD not distended Respiratory: Normal air movement, Crackles/rales Cardiovascular: Regular rate/rhythm, Normal S1 S2, Other ([place] murmur), Edema (tense edema to Thad lower extremities) Capillary refill: >2 Seconds Gastrointestinal: Normal bowel sounds, Soft and benign, Non-distended, No tenderness Musculoskeletal: Erythema (Thad lower extremities), Tenderness (Thad lower extremities) Integumentary: Skin breakdown (blisters to Thad lower extremities), Other (Cool Thad lower extremities, Weeping drainage from skin) Neurological: Normal speech, Normal tone Laboratory Data (last 24 hrs) 03/30/24 03/30/24 03/30/24 13:21 13:21 13:21 WBC 11.20 H Hgb 7.8 L Hct 27.4 L Plt Count 183 PT 13.6 H INR 1.24 APTT 28.8 Sodium 129 L Potassium 5.2 H BUN 144 H Creatinine 3.21 H Glucose 139 H Magnesium 3.5 H Total Bilirubin 0.6 AST < 10 L ALT 23 Alkaline Phosphatase 162 H Conclusions/Impression: On 03/30/24, Donell presented to the ED from his doctors office for hypotension, decreased oxygen saturation, and weakness. Upon evaluation in the ED he was found to be in severe kidney failure with BUN/creatinine 144/3.21, GFR 19, potassium 5.2, magnesium 3.5, sodium 129, lactic acid 2.4/1.6. Dr. Larson and Dr. Warner were contacted for further discussion. Per Dr. Larson, Donell is uremic with hypotension needing CRRT which we do not have available at our facility. Transfer was recommended to the ED and initiated promptly.
--- NOTE | 2024-04-01 10:33 | EKG ---
Test Date: 2024-03-30 Test Time: 13:17:33 Corner Bead Operator: PH MEASUREMENT RESULTS: Intervals: Rate: 74 AK: QRSD: 138 QT: 420 QTc: 466 [place]: P: AK: QRS: -28 T: 127 INTERPRETIVE STATEMENTS: Atrial fibrillation Nonspecific intraventricular block Cannot rule out Septal infarct, age undetermined T wave abnormality, consider lateral ischemia Abnormal ECG Compared to ECG 03/14/2024 17:46:51 Myocardial infarct finding now present T-wave abnormality now present Possible ischemia now present Electronically Signed On 04-01-24 10:31:38 CDT by Juan Warner
== END 2024-03-31 05:29 | disposition short-term general hospital (02) | DRG 683 ==
LOC: ER 12:26 → ERHOLD 17:09
PROVIDERS: ADMIT Hospitalist; ATTEND Hospitalist
PROC: 4A033R1 Measurement of Arterial Saturation, Peripheral, Percutaneous Approach (ICD-10-PCS; principal; 2024-03-30)
PROC: 5A09357 Assistance with Respiratory Ventilation, Less than 24 Consecutive Hours, Continuous Positive Airway Pressure (ICD-10-PCS; 2024-03-30)
PROC: 0T9B70Z Drainage of Bladder with Drainage Device, Via Natural or Artificial Opening (ICD-10-PCS; 2024-03-30)
DX: N17.9 Acute kidney failure, unspecified (principal); E87.20 Acidosis, unspecified; I13.0 Hypertensive heart and chronic kidney disease with heart failure and stage 1 through stage 4 chronic kidney disease, or unspecified chronic kidney disease; I50.32 Chronic diastolic (congestive) heart failure; N18.30 Chronic kidney disease, stage 3 unspecified; D63.1 Anemia in chronic kidney disease; E87.5 Hyperkalemia; I48.91 Unspecified atrial fibrillation; E78.5 Hyperlipidemia, unspecified; I25.10 Atherosclerotic heart disease of native coronary artery without angina pectoris; Z88.2 Allergy status to sulfonamides; Z95.1 Presence of aortocoronary bypass graft; Z79.82 Long term (current) use of aspirin; Z86.73 Personal history of transient ischemic attack (TIA), and cerebral infarction without residual deficits; Z79.899 Other long term (current) drug therapy; Z87.891 Personal history of nicotine dependence
CPT/HCPCS: 36415; 36600; 51702; 71045; 76770; 76857; 80048; 80053; 80076; 82805; 83605; 83735; 83880; 84484; 85025; 85610; 85730; 87040; 93005; 94660; 99285; C9113; J1940; J7040